=== PATIENT | female | born 1940 | race Caucasian/White ===

== ENCOUNTER → 2016-04-22 | Outpatient (CLI) | payer BC, OTHER | END | disposition home or self-care (01) | LOC: C.LABBFT 08:26 | PROVIDERS: ATTEND Internal Medicine Rheumatology | DX: E55.9 Vitamin D deficiency, unspecified (principal); M81.0 Age-related osteoporosis without current pathological fracture; N25.81 Secondary hyperparathyroidism of renal origin; E61.8 Deficiency of other specified nutrient elements ==

== ENCOUNTER → 2016-06-14 | Outpatient (CLI) | payer BC, OTHER ==
[2016-06-14 13:00] LABS: BLOOD UREA NITROGEN 23 mg/dl (7-18); BUN/CREATININE RATIO 19.3 (10-20); CALCIUM 9.2 mg/dl (8.5-10.1); CARBON DIOXIDE 31 mmol/L (21-32); CHLORIDE 102 mmol/L (98-107); GLUCOSE 116 mg/dl (70-99); POTASSIUM 4.1 mmol/L (3.5-5.1); SODIUM 138 mmol/L (136-145)
[2016-06-14 13:10] LABS: THYROID STIMULATING HORMONE 0.499 uIu/ml (0.300-4.500)
[2016-06-14 13:23] LABS: ESTIMATED AVERAGE GLUCOSE 243 mg/dl; HA1C FLAG Normal (Normal)
== END | disposition home or self-care (01) ==
LOC: C.LABBFT 08:33
PROVIDERS: ATTEND Internal Medicine
DX: E10.65 Type 1 diabetes mellitus with hyperglycemia (principal)

== ENCOUNTER → 2016-07-22 | Outpatient (CLI) | payer BC, OTHER ==
[2016-07-22 12:59] LABS: BASO % 0.1 %; BASO ABS # 0.01 K/uL (0-0.2); COMPLETE YES; EOS % 2.5 %; HEMATOCRIT 39.1 % (37-47); IG% 0.1 %; LYMPH % 32.9 %; LYMPH ABS # 2.35 K/uL (1.2-3.4); MEAN CELL VOLUME 84.8 fL (80-100); MEAN CORPUSCULAR HEMOGLOBIN 28.2 pg (25-34); MEAN CORPUSCULAR HGB CONC 33.2 g/dl (32-36); MEAN PLATELET VOLUME 10.3 fL (7.4-10.4); MONO % 8.7 %; NEUT % 55.7 %; PLATELET COUNT 304 K/uL (130-400); RED BLOOD COUNT 4.61 M/uL (4.2-5.4); WHITE BLOOD COUNT 7.14 K/uL (4.8-10.8)
[2016-07-22 13:14] LABS: ALT/SGPT 31 U/L (12-78); AST/SGOT 26 U/L (15-37); BLOOD UREA NITROGEN 19 mg/dl (7-18); BUN/CREATININE RATIO 15.8 (10-20); CALCIUM 9.6 mg/dl (8.5-10.1); CARBON DIOXIDE 30 mmol/L (21-32); CHLORIDE 104 mmol/L (98-107); GLUCOSE 131 mg/dl (70-99); POTASSIUM 4.4 mmol/L (3.5-5.1); SODIUM 141 mmol/L (136-145)
[2016-07-22 13:24] LABS: ALKALINE PHOSPHATASE 113 U/L (45-117); CHOLESTEROL 140 mg/dl (0-200); HDL CHOLESTEROL 70 mg/dl; LDL CHOLESTEROL CALCULATED 58 mg/dl; TRIGLYCERIDES 58 mg/dl (0-150); VERY LOW DENSITY LIPOPROT CALC 12 mg/dl
== END | disposition home or self-care (01) ==
LOC: C.LABBFT 09:42
PROVIDERS: ATTEND Internal Medicine
DX: E78.00 Pure hypercholesterolemia, unspecified (principal); E03.9 Hypothyroidism, unspecified; D64.9 Anemia, unspecified

== ENCOUNTER → 2016-10-18 | Outpatient (CLI) | payer BC, OTHER ==
--- NOTE | 2016-10-18 11:53 | DIAGNOSTIC IMAGING REPORT ---
ULTRASOUND OF THE THYROID GLAND CLINICAL HISTORY: Thyroid nodules. COMPARISON STUDY: Thyroid ultrasound dated 10/23/2015. TECHNIQUE: Real-time, grayscale, and color flow sonography of the thyroid gland is performed utilizing a high-frequency linear transducer. Images are reviewed in the transverse and longitudinal planes. FINDINGS: Right lobe: The right lobe of the thyroid gland is diminutive and markedly heterogeneous in echotexture, measuring 2.6 x 0.8 x 1.0 cm. A nodule previously identified in the right lobe is not well visualized due to overall heterogeneity. Left lobe: The left lobe of the thyroid gland is diminutive and markedly heterogeneous in echotexture, measuring 2.1 x 0.8 x 0.8 cm. Isthmus: The thyroid isthmus is heterogeneous in echotexture and measures 0.4 cm in AP diameter. A hypoechoic nodule in the left aspect of the isthmus measures 1.1 x 0.7 x 1.0 cm (previously measuring 1.0 x 0.5 x 1.0 cm). IMPRESSION: 1. The thyroid gland is diminutive and markedly heterogeneous in echotexture, likely representing the sequelae of previous thyroiditis. Correlation with serum thyroid function studies will be required. 2. A hypoechoic nodule within the left aspect of the isthmus is unchanged from previous. Electronically signed by: Mukesh Hawley M.D. 10/18/2016 11:52 AM Dictated Date/Time: 10/18/2016 11:50 AM
== END | disposition home or self-care (01) ==
LOC: C.ULTR 10:43
PROVIDERS: ATTEND Internal Medicine Endocrinology, Diabetes & Metabolism
DX: E04.2 Nontoxic multinodular goiter (principal)

== ENCOUNTER → 2016-11-02 | Outpatient (CLI) | payer BC, OTHER | END | disposition home or self-care (01) | LOC: C.LABBFT 07:43 | PROVIDERS: ATTEND Internal Medicine Rheumatology | DX: M81.0 Age-related osteoporosis without current pathological fracture (principal); E55.9 Vitamin D deficiency, unspecified ==

== ENCOUNTER → 2017-01-07 | Outpatient (CLI) | payer BC, OTHER ==
[2017-01-07 12:24] LABS: BASO % 0.4 %; BASO ABS # 0.02 K/uL (0-0.2); COMPLETE YES; EOS % 4.8 %; HEMATOCRIT 39.5 % (37-47); IG% 0.2 %; LYMPH % 33.3 %; LYMPH ABS # 1.88 K/uL (1.2-3.4); MEAN CELL VOLUME 87.6 fL (80-100); MEAN CORPUSCULAR HEMOGLOBIN 28.2 pg (25-34); MEAN CORPUSCULAR HGB CONC 32.2 g/dl (32-36); MEAN PLATELET VOLUME 10.8 fL (7.4-10.4); MONO % 11.3 %; PLATELET COUNT 306 K/uL (130-400); RED BLOOD COUNT 4.51 M/uL (4.2-5.4); WHITE BLOOD COUNT 5.65 K/uL (4.8-10.8)
[2017-01-07 12:50] LABS: ALT/SGPT 31 U/L (12-78); BLOOD UREA NITROGEN 21 mg/dl (7-18); BUN/CREATININE RATIO 19.2 (10-20); CALCIUM 9.6 mg/dl (8.5-10.1); CARBON DIOXIDE 30 mmol/L (21-32); CHLORIDE 106 mmol/L (98-107); CHOLESTEROL 169 mg/dl (0-200); GLUCOSE 82 mg/dl (70-99); POTASSIUM 5.1 mmol/L (3.5-5.1); SODIUM 140 mmol/L (136-145); TRIGLYCERIDES 56 mg/dl (0-150); VERY LOW DENSITY LIPOPROT CALC 11 mg/dl
[2017-01-07 12:51] LABS: ESTIMATED AVERAGE GLUCOSE 223 mg/dl; HA1C FLAG Normal (Normal)
[2017-01-07 13:00] LABS: ALKALINE PHOSPHATASE 117 U/L (45-117); AST/SGOT 27 U/L (15-37); CHOLESTEROL/HDL RATIO 2.1; HDL CHOLESTEROL 80 mg/dl; LDL CHOLESTEROL CALCULATED 78 mg/dl
[2017-01-07 13:05] LABS: RATIO 16.7 mcg/mg (0-30.0)
== END | disposition home or self-care (01) ==
LOC: C.LABBFT 09:30
PROVIDERS: ATTEND Internal Medicine Endocrinology, Diabetes & Metabolism
DX: E78.00 Pure hypercholesterolemia, unspecified (principal); I10 Essential (primary) hypertension; E10.65 Type 1 diabetes mellitus with hyperglycemia; E78.2 Mixed hyperlipidemia; E03.8 Other specified hypothyroidism

== ENCOUNTER → 2017-03-30 | Outpatient (CLI) | payer BC, OTHER ==
[2017-03-30 12:54] LABS: CALCIUM 9.4 mg/dl (8.5-10.1); CREATININE 1.29 mg/dl (0.60-1.20)
[2017-03-30 12:58] LABS: CHOLESTEROL/HDL RATIO 2.1
== END | disposition home or self-care (01) ==
LOC: C.LABBFT 10:35
PROVIDERS: ATTEND Internal Medicine Rheumatology
DX: E78.00 Pure hypercholesterolemia, unspecified (principal); E55.9 Vitamin D deficiency, unspecified; M81.0 Age-related osteoporosis without current pathological fracture; N25.81 Secondary hyperparathyroidism of renal origin; E61.8 Deficiency of other specified nutrient elements

== ENCOUNTER → 2017-04-25 | Outpatient (CLI) | payer BC, OTHER ==
--- NOTE | 2017-04-26 07:48 | MAMMOGRAPHY REPORT ---
BILATERAL DIGITAL SCREENING MAMMOGRAM TOMOSYNTHESIS WITH CAD: 04/25/2017 CLINICAL HISTORY: Routine screening. Patient has no complaints. TECHNIQUE: Breast tomosynthesis in addition to standard 2D mammography was performed. Current study was also evaluated with a Computer Aided Detection (CAD) system. COMPARISON: Comparison is made to exams dated: 04/05/2016 mammogram, 04/01/2015 mammogram, 07/17/2013 mammogram, 07/14/2012 mammogram, 07/09/2011 mammogram, and 07/07/2010 mammogram - [facility] [address] BREAST COMPOSITION: There are scattered areas of fibroglandular density in both breasts. FINDINGS: There are moderate to marked vascular calcifications in the breasts. No suspicious mass, a rchitectural distortion or cluster of suspicious microcalcifications is seen. IMPRESSION: ACR BI-RADS CATEGORY 1: NEGATIVE There is no mammographic evidence of malignancy. A 1 year screening mammogram is recommended. The pa tient will receive written notification of the results. Approximately 10% of breast cancers are not detected with mammography. A negative mammographic report should not delay biopsy if a clinically suggestive mass is present. Kathrine Baxter M.D. ay/:04/25/2017 15:17:24 Dirt Shoveler: Nicole MONTERROSO(Aust[place])(M), [facility] [address] letter sent: Normal 1/2 BI-RADS Code: ACR BI-RADS Category 1: Negative
== END | disposition home or self-care (01) ==
LOC: C.MAMM 09:40
PROVIDERS: ATTEND Internal Medicine
DX: Z12.31 Encounter for screening mammogram for malignant neoplasm of breast (principal)

== ENCOUNTER → 2017-05-06 | Outpatient (CLI) | payer BC, OTHER ==
[2017-05-06 14:06] LABS: HEMOGLOBIN A1C 9.9 % (4.5-5.6)
== END | disposition home or self-care (01) ==
LOC: C.LAB1850 12:38
PROVIDERS: ATTEND Internal Medicine Endocrinology, Diabetes & Metabolism
DX: E10.9 Type 1 diabetes mellitus without complications (principal)

== ENCOUNTER → 2017-06-27 | Outpatient (CLI) | payer BC, OTHER | END | disposition home or self-care (01) | LOC: C.MAMM 09:48 | PROVIDERS: ATTEND Internal Medicine Rheumatology | DX: E11.42 Type 2 diabetes mellitus with diabetic polyneuropathy (principal); M81.0 Age-related osteoporosis without current pathological fracture; M85.89 Other specified disorders of bone density and structure, multiple sites ==

== ENCOUNTER → 2017-08-09 | Outpatient (CLI) | payer BC, OTHER ==
[2017-08-09 12:43] LABS: ALBUMIN 3.6 gm/dl (3.4-5.0); ALKALINE PHOSPHATASE 143 U/L (45-117); ALT/SGPT 36 U/L (12-78); AST/SGOT 29 U/L (15-37); BLOOD UREA NITROGEN 19 mg/dl (7-18); CARBON DIOXIDE 31 mmol/L (21-32); CHOLESTEROL 142 mg/dl (0-200); CREATININE 0.97 mg/dl (0.60-1.20); GLUCOSE 85 mg/dl (70-99); POTASSIUM 4.6 mmol/L (3.5-5.1); SODIUM 139 mmol/L (136-145)
[2017-08-09 12:58] LABS: LDL CHOLESTEROL CALCULATED 64 mg/dl; TOTAL PROTEIN 6.8 gm/dl (6.4-8.2)
== END | disposition home or self-care (01) ==
LOC: C.LABBFT 08:11
PROVIDERS: ATTEND Internal Medicine
DX: E03.9 Hypothyroidism, unspecified (principal); E78.00 Pure hypercholesterolemia, unspecified

== ENCOUNTER 2017-08-31 15:40 | Emergency (ER) | payer BC, OTHER ==
[~2017-08-31] VITALS: Ht 157.5 cm; Wt 75.7 kg
[2017-08-31 15:43] VITALS: TEMP 37.4; Ht 157.5 cm; Wt 75.7 kg
[2017-08-31] MEDS ORDERED: SODIUM CHLORIDE 0.9% 1000ML 1,000 ML IV STA ×2 (16:37→18:02)
[2017-08-31 17:13] LABS: BASO % 0.2 %; BASO ABS # 0.02 K/uL (0-0.2); EOS % 1.4 %; EOS ABS # 0.15 K/uL (0-0.5); HEMATOCRIT 35.9 % (37-47); HEMOGLOBIN 11.9 g/dL (12.0-16.0); IG# 0.02 K/uL (0.00-0.02); LYMPH % 17.9 %; LYMPH ABS # 1.91 K/uL (1.2-3.4); MEAN CELL VOLUME 84.7 fL (80-100); MEAN CORPUSCULAR HEMOGLOBIN 28.1 pg (25-34); MEAN CORPUSCULAR HGB CONC 33.1 g/dl (32-36); MEAN PLATELET VOLUME 9.5 fL (7.4-10.4); MONO % 8.8 %; MONO ABS # 0.94 K/uL (0.11-0.59); NEUT % 71.5 %; NEUT ABS # 7.64 K/uL (1.4-6.5); PLATELET COUNT 279 K/uL (130-400); RED CELL DISTRIBUTION WIDTH CV 13.9 % (11.5-14.5); WHITE BLOOD COUNT 10.68 K/uL (4.8-10.8)
[2017-08-31] MEDS ORDERED: [UNRECOGNIZED DRUG - REMARK] TOP (17:34)
[2017-08-31] MEDS ORDERED: ATOR10TA82 PO (17:34)
[2017-08-31] MEDS ORDERED: INSPMPNVLG SC (17:34)
[2017-08-31] MEDS ORDERED: AMLO2.5T PO (17:34)
[2017-08-31] MEDS ORDERED: CHOL1TAB46 PO (17:34)
[2017-08-31] MEDS ORDERED: CALC600T9 PO (17:34)
[2017-08-31] MEDS ORDERED: ZOLE5INJ3 INJ (17:34)
[2017-08-31] MEDS ORDERED: ASPI81TA28 PO (17:34)
[2017-08-31] MEDS ORDERED: MULT-506 PO (17:34)
[2017-08-31] MEDS ORDERED: LEVO88TA3 PO (17:34)
[2017-08-31] MEDS ORDERED: MAGN400T6 PO (17:34)
[2017-08-31] MEDS ORDERED: OPTIRAY 320 IV PRN (17:45)
[2017-08-31 17:48] LABS: ALBUMIN 3.2 gm/dl (3.4-5.0); ALKALINE PHOSPHATASE 156 U/L (45-117); ALT/SGPT 34 U/L (12-78); AST/SGOT 25 U/L (15-37); BLOOD UREA NITROGEN 19 mg/dl (7-18); CALCIUM 8.6 mg/dl (8.5-10.1); CARBON DIOXIDE 23 mmol/L (21-32); GLUCOSE 130 mg/dl (70-99); LIPASE 62 U/L (73-393); PHOSPHORUS 2.4 mg/dl (2.5-4.9); POTASSIUM 4.5 mmol/L (3.5-5.1); SODIUM 136 mmol/L (136-145); TOTAL PROTEIN 7.1 gm/dl (6.4-8.2)
[2017-08-31] MEDS ORDERED: CEFTRIAXONE SOD INJ 1 GM ADDVIAL IV STA (18:23)
--- NOTE | 2017-08-31 18:47 | DIAGNOSTIC IMAGING REPORT ---
ABDOMEN AND PELVIS CT WITH IV CONTRAST CT DOSE: 355.80 mGy.cm HISTORY: Acute generalized abdominal pain with diarrhea abd pain, diarrhea, nausea TECHNIQUE: Multiaxial CT images of the abdomen and pelvis were performed following the use of intravenous contrast. A dose lowering technique was utilized adhering to the principles of ALARA. COMPARISON STUDY: None. FINDINGS: Mild subsegmental bibasilar atelectasis/scarring. 3 mm solid nodule the posterior basal segment left lower lobe. Pleural-based 5 mm nodule of the lateral basal segment right lower lobe. 4 mm nodule of the right middle lobe. No pneumatosis or pneumoperitoneum. Imaged inferior cardiac chambers are mildly enlarged with trace pericardial effusion. Gallbladder, liver, spleen and adrenal glands are unremarkable. Severe pancreatic atrophy with low attenuating lesions of the pancreatic body and pancreatic tail measuring up to 8 mm, possibly reflecting a sidebranch IPMN's. Mild bilateral perinephric stranding with mild dilation of the right greater than left ureters. No significant hydronephrosis or renal calculi. Ureters fill enhancement seen within the bilateral renal pelves and ureters along with mild periureteral inflammatory stranding. Mild urinary bladder distention. Pessary device within the vagina noted. Calcifications of the uterus. No adnexal mass lesion. No aortic aneurysm. Moderate hiatal hernia with partially intrathoracic stomach. No bowel obstruction. Prominent nonenlarged mesenteric lymph nodes are noted throughout the central and left abdomen measuring up to 8 mm in short axis. Appendix is not definitively seen. No ascites. The soft tissues are unremarkable. The bones appear intact. Bone demineralization with multilevel degenerative changes about the spine. IMPRESSION: 1. Mild bilateral perinephric and periureteral inflammatory stranding with mild dilation of the right greater than left ureters are noted along with bilateral urothelial enhancement suspicious for ascending infectious etiology with ureteritis. Correlate with urinalysis. No renal calculi or hydronephrosis. 2. Solid nodules of the bilateral lung bases measure up to 5 mm. 3. Moderate hiatal hernia with partially intrathoracic stomach. 4. No bowel obstruction. 5. Nonspecific mildly prominent mesenteric lymph nodes may be physiologic. 6. Additional findings as above. Please refer to below summary of Fleischner criteria recommendations for follow-up of incidental CT nodules (Tejas Coelho, Guidelines for management of small pulmonary nodules detected on CT scans: A statement from the Fleischner Society, Radiology 237: [phone].) SOLID NODULES Multiple nodules size: <6 mm * Low risk patients: no routine follow-up * high risk patients: optional CT at 12 months Note: newly detected indeterminate nodule in persons 35 years of age or older. * Low risk patients: minimal or absent history of smoking and/or other known risk factors * high risk patients: history of smoking or of other known risk factors (e.g. first degree relative with lung cancer, or exposure to asbestos, radon, uranium) * if a nodule up to 8 mm is partly solid or is ground glass further follow-up is required after 24 months to exclude possible slow growing adenocarcinoma (MORIAH) The above report was generated using voice recognition software. It may contain grammatical, syntax or spelling errors. Electronically signed by: Jeffrey Palacio M.D. 08/31/2017 6:45 PM Dictated Date/Time: 08/31/2017 6:36 PM
--- NOTE | 2017-08-31 20:04 | EMERGENCY ROOM VISIT NOTE ---
History Report prepared by Crystal: Camille Yañez Under the Supervision of: Dr. Carlee Llanos D.O. First contact with patient: 16:25 Chief Complaint: DIARRHEA Stated Complaint: BODY ACHES, DIARRHEA, FEVER Nursing Triage Summary: diarrhea, abd pain, body aches, fever since tuesday. pt was told to come her by her doctor for eval. History of Present Illness The patient is a 77 year old female who presents to the Emergency Room with complaints of persistent diarrhea starting 3 days ago. She was referred to the ED by her PCP. The patient was having cramping in her abdomen prior to the diarrhea beginning 3 days ago. She then had diarrhea for the rest of the day. She did not have another bowel movement until this morning when she had thick diarrhea. Her abdomen has felt achy. She has had some intermittent nausea and has not been eating well. She has a decreased appetite. She has had a fever for the past 3 evenings. Her temperature was 100.7. She was diaphoretic when she woke up this morning. She is having body aches. She has lower back pain which she normally does not have. She thought she might have been sore from gardening. She reports fatigue and chills. She had 2 instances of very yellow urine, but denies any other urinary symptoms. She denies any cough or bloating. She denies any changes in diet, sick contacts, new medications, or recent travel. She denies any history of stomach or intestinal problems. She has a history of diabetes. Her sugars have been good because she has not been eating well. She is on low dose aspirin. Source of History: patient Onset: 3 days ago Position: abdomen Quality: other (diarrhea) Timing: other (persistent) Associated Symptoms: + fevers, + chills, + diaphoresis, + nausea, + abdominal pain, + back pain, + fatigue, No cough, No vomiting Note: Pt reports body aches. Review of Systems See HPI for pertinent positives & negatives. A total of 10 systems reviewed and were otherwise negative. Past Medical & Surgical Medical Problems: (1) Diabetes Family History No pertinent family history stated. Social History Smoking Status: Never Smoker Marital Status: Occupation Status: retired Current/Historical Medications Scheduled Amlodipine (Norvasc), 2.5 MG PO HS Aspirin (Aspirin Ec), 81 MG PO HS Atorvastatin (Lipitor), 10 MG PO HS Calcium Carbonate-Vitamin D (Calcium + D), 1 TAB PO BID Cephalexin (Keflex), 1 CAP PO BID Cholecalciferol (Vitamin D3), 15,000 UNITS PO QAM Insulin Aspart (novoLOG INSULIN PUMP ), 35-45 UNITS SC DAILY Levothyroxine Sodium (Levothyroxine Sodium), 88 MCG PO QAM Magnesium Oxide (Mag-Ox), 400 MG PO QAM Multivitamin (Multivitamin), 1 TAB PO HS Zoledronic Acid (Zoledronic Acid), 1 DOSE INJ DIRECTED [Foam Hair Solution], 1 DOSE TOP DAILY Allergies Coded Allergies: Losartan (Verified Adverse Reaction, Severe, "MESSES UP BLOOD WORK", ) Physical Exam Vital Signs Date Time Temp Pulse Resp B/P (MAP) Pulse Ox O2 Delivery O2 Flow Rate FiO2 08/31/17 20:14 91 18 161/95 98 Room Air 08/31/17 18:41 89 18 153/72 99 Room Air 08/31/17 17:16 84 18 149/70 98 Room Air 08/31/17 15:43 37.4 97 20 154/78 95 Room Air Physical Exam GENERAL: alert, well appearing, well nourished, no distress, non-toxic EYE EXAM: normal conjunctiva, PERRL and EOM's grossly intact OROPHARYNX: no exudate, no erythema, lips, buccal mucosa, and tongue normal and mucous membranes are moist NECK: supple, no nuchal rigidity, no adenopathy, non-tender LUNGS: Clear to auscultation. Normal chest wall mechanics, no w/r/r HEART: no murmurs, S1 normal and S2 normal ABDOMEN: abdomen soft, non-tender, dull to percussion, normo-active bowel sounds , no masses, no rebound or guarding. BACK: Back is symmetrical on inspection and there is no deformity, no midline tenderness, no CVA tenderness. SKIN: no rashes and no bruising UPPER EXTREMITIES: upper extremities are grossly normal. LOWER EXTREMITIES: No pitting edema. NEURO EXAM: Normal sensorium, cranial nerves II-XII grossly intact, normal speech, no gross weakness of arms, no gross weakness of legs. Ambulating with a normal gait, no ataxia. Medical Decision & Procedures ER Provider Diagnostic Interpretation: Radiology results have been interpreted by the radiologist and reviewed by me. ABDOMEN AND PELVIS CT WITH IV CONTRAST CT DOSE: 355.80 mGy.cm HISTORY: Acute generalized abdominal pain with diarrhea abd pain, diarrhea, nausea TECHNIQUE: Multiaxial CT images of the abdomen and pelvis were performed following the use of intravenous contrast. A dose lowering technique was utilized adhering to the principles of ALARA. COMPARISON STUDY: None. FINDINGS: Mild subsegmental bibasilar atelectasis/scarring. 3 mm solid nodule the posterior basal segment left lower lobe. Pleural-based 5 mm nodule of the lateral basal segment right lower lobe. 4 mm nodule of the right middle lobe. No pneumatosis or pneumoperitoneum. Imaged inferior cardiac chambers are mildly enlarged with trace pericardial effusion. Gallbladder, liver, spleen and adrenal glands are unremarkable. Severe pancreatic atrophy with low attenuating lesions of the pancreatic body and pancreatic tail measuring up to 8 mm, possibly reflecting a sidebranch IPMN's. Mild bilateral perinephric stranding with mild dilation of the right greater than left ureters. No significant hydronephrosis or renal calculi. Ureters fill enhancement seen within the bilateral renal pelves and ureters along with mild periureteral inflammatory stranding. Mild urinary bladder distention. Pessary device within the vagina noted. Calcifications of the uterus. No adnexal mass lesion. No aortic aneurysm. Moderate hiatal hernia with partially intrathoracic stomach. No bowel obstruction. Prominent nonenlarged mesenteric lymph nodes are noted throughout the central and left abdomen measuring up to 8 mm in short axis. Appendix is not definitively seen. No ascites. The soft tissues are unremarkable. The bones appear intact. Bone demineralization with multilevel degenerative changes about the spine. IMPRESSION: 1. Mild bilateral perinephric and periureteral inflammatory stranding with mild dilation of the right greater than left ureters are noted along with bilateral urothelial enhancement suspicious for ascending infectious etiology with ureteritis. Correlate with urinalysis. No renal calculi or hydronephrosis. 2. Solid nodules of the bilateral lung bases measure up to 5 mm. 3. Moderate hiatal hernia with partially intrathoracic stomach. 4. No bowel obstruction. 5. Nonspecific mildly prominent mesenteric lymph nodes may be physiologic. 6. Additional findings as above. Please refer to below summary of Fleischner criteria recommendations for follow-up of incidental CT nodules (H Meliton, Guidelines for management of small pulmonary nodules detected on CT scans: A statement from the Fleischner Society, Radiology 237: [phone].) SOLID NODULES Multiple nodules size: <6 mm * Low risk patients: no routine follow-up * high risk patients: optional CT at 12 months Note: newly detected indeterminate nodule in persons 35 years of age or older. * Low risk patients: minimal or absent history of smoking and/or other known risk factors * high risk patients: history of smoking or of other known risk factors (e.g. first degree relative with lung cancer, or exposure to asbestos, radon, uranium) * if a nodule up to 8 mm is partly solid or is ground glass further follow-up is required after 24 months to exclude possible slow growing adenocarcinoma (MORIAH) The above report was generated using voice recognition software. It may contain grammatical, syntax or spelling errors. Electronically signed by: Jeffrey Palacio M.D. 08/31/2017 6:45 PM Dictated Date/Time: 08/31/2017 6:36 PM Laboratory Results 08/31/17 16:56 Red Blood Count 4.24, Mean Corpuscular Volume 84.7, Mean Corpuscular Hemoglobin 28.1, Mean Corpuscular Hemoglobin Concent 33.1, Mean Platelet Volume 9.5, Neutrophils (%) (Auto) 71.5, Lymphocytes (%) (Auto) 17.9, Monocytes (%) (Auto) 8.8, Eosinophils (%) (Auto) 1.4, Basophils (%) (Auto) 0.2, Neutrophils # (Auto) 7.64, Lymphocytes # (Auto) 1.91, Monocytes # (Auto) 0.94, Eosinophils # (Auto) 0.15, Basophils # (Auto) 0.02 08/31/17 16:56 Test 08/31/17 16:56 08/31/17 17:01 08/31/17 17:08 White Blood Count 10.68 K/uL (4.8-10.8) Red Blood Count 4.24 M/uL (4.2-5.4) Hemoglobin 11.9 g/dL (12.0-16.0) Hematocrit 35.9 % (37-47) Mean Corpuscular Volume 84.7 fL (80-100) Mean Corpuscular Hemoglobin 28.1 pg (25-34) Mean Corpuscular Hemoglobin Concent 33.1 g/dl (32-36) Platelet Count 279 K/uL (130-400) Mean Platelet Volume 9.5 fL (7.4-10.4) Neutrophils (%) (Auto) 71.5 % Lymphocytes (%) (Auto) 17.9 % Monocytes (%) (Auto) 8.8 % Eosinophils (%) (Auto) 1.4 % Basophils (%) (Auto) 0.2 % Neutrophils # (Auto) 7.64 K/uL (1.4-6.5) Lymphocytes # (Auto) 1.91 K/uL (1.2-3.4) Monocytes # (Auto) 0.94 K/uL (0.11-0.59) Eosinophils # (Auto) 0.15 K/uL (0-0.5) Basophils # (Auto) 0.02 K/uL (0-0.2) RDW Standard Deviation 43.0 fL (36.4-46.3) RDW Coefficient of Variation 13.9 % (11.5-14.5) Immature Granulocyte % (Auto) 0.2 % Immature Granulocyte # (Auto) 0.02 K/uL (0.00-0.02) Prothrombin Time 11.0 SECONDS (9.0-12.0) Prothromb Time International Ratio 1.0 (0.9-1.1) Anion Gap 7.0 mmol/L (3-11) Est Creatinine Clear Calc Drug Dose 34.5 ml/min Estimated GFR () 45.8 Estimated GFR (Non- 39.5 BUN/Creatinine Ratio 14.5 (10-20) Calcium Level 8.6 mg/dl (8.5-10.1) Phosphorus Level 2.4 mg/dl (2.5-4.9) Magnesium Level 1.9 mg/dl (1.8-2.4) Total Bilirubin 0.7 mg/dl (0.2-1) Aspartate Amino Transf (AST/SGOT) 25 U/L (15-37) Alanine Aminotransferase (ALT/SGPT) 34 U/L (12-78) Alkaline Phosphatase 156 U/L (45-117) Troponin I < 0.015 ng/ml (0-0.045) Total Protein 7.1 gm/dl (6.4-8.2) Albumin 3.2 gm/dl (3.4-5.0) Globulin 3.9 gm/dl (2.5-4.0) Albumin/Globulin Ratio 0.8 (0.9-2) Lipase 62 U/L (73-393) Bedside Lactic Acid Venous 0.63 mmol/L (0.90-1.70) Urine Color YELLOW Urine Appearance TURBID (CLEAR) Urine pH 5.0 (4.5-7.5) Urine Specific Hamilton 1.017 (1.000-1.030) Urine Protein 1+ (NEG) Urine Glucose (UA) NEG (NEG) Urine Ketones TRACE (NEG) Urine Occult Blood 2+ (NEG) Urine Nitrite POS (NEG) Urine Bilirubin NEG (NEG) Urine Urobilinogen NEG (NEG) Urine Leukocyte Esterase LARGE (NEG) Urine WBC (Auto) >30 /hpf (0-5) Urine RBC (Auto) 10-30 /hpf (0-4) Urine Hyaline Casts (Auto) 1-5 /lpf (0-5) Urine Epithelial Cells (Auto) >30 /lpf (0-5) Urine Bacteria (Auto) 2+ (NEG) Laboratory results per my review. Medications Administered Medications (Trade) Dose Ordered Sig/Alicia Route Start Time Stop Time Status Last Admin Dose Admin Sodium Chloride 1,000 ml @ 999 mls/hr Q1H1M STAT IV 08/31/17 16:37 08/31/17 17:37 DC 08/31/17 17:08 999 MLS/HR Sodium Chloride 1,000 ml @ 999 mls/hr Q1H1M STAT IV 08/31/17 18:02 08/31/17 19:02 DC 08/31/17 18:48 999 MLS/HR Ceftriaxone Sodium (Rocephin Inj) 1 gm NOW STAT IV 08/31/17 18:23 08/31/17 18:25 DC 08/31/17 18:48 1 GM ECG Per My Interpretation Indication: back/shoulder pain Rate (beats per minute): 85 Rhythm: sinus rhythm Findings: no acute ischemic change, no ectopy, other (normal axis, normal intervals) ED Course 163: The patient was evaluated in room C7. A complete history and physical exam was performed. 1637: Sodium Chloride 1000 ml @ 999 mls/hr IV. 180: Sodium Chloride 1000 ml @ 999 mls/hr IV. 1823: Rocephin Inj 1 gm IV. 1910: I reevaluated the patient. I updated her on the results. 195: Upon reevaluation, the patient is feeling better. I discussed the findings and the treatment plan with the patient. She verbalizes agreement and understanding. She was discharged home. Medical Decision Differential diagnoses includes but is not limited to gastritis, peptic ulcer disease, GERD, gallbladder disease, pancreatitis, small bowel obstruction, acute coronary syndrome, pericarditis, ischemic bowel, irritable bowel disease, irritable bowel syndrome, appendicitis, diverticulitis, malignancy, hernia, urinary tract infection, torsion, perforation, trauma, infectious. Patient well-appearing here, tolerating p.o., hemodynamically stable throughout. I do not suspect bacteremia/sepsis. Possibly patient started with diarrhea from viral or foodborne etiology, which then contributed to an evolving urinary tract infection. Patient with no overt symptoms of pyelonephritis, some generalized systemic symptoms, however labs otherwise reassuring. Patient did appear mildly clinically dehydrated and was given IV fluids, was tolerating fluids here by mouth also. No evidence of DKA or HHNK. Patient with small elevation to her creatinine to 1.3, likely in part due to dehydration although cautioned her about having this rechecked given the urinary tract infection. No evidence of additional obstructive uropathy. Patient ambulate here with a steady gait, no orthostatic symptoms, patient anxious to go home. Imaging otherwise reassuring and no evidence of additional acute GI pathology, I do not suspect additional vascular etiology including mesenteric ischemia or ischemic colitis. Discussed close follow-up with her family doctor, use of antibiotics at home, symptoms to watch and return for, she verbalized understanding was agreeable with plan. I feel patient is reliable to follow up or return for any problems. Medication Reconcilliation Current Medication List: was personally reviewed by me Blood Pressure Screening Patient's blood pressure: Elevated blood pressure Blood pressure disposition: Referred to PCP Impression Primary Impression: UTI (urinary tract infection) Additional Impressions: Dehydration Abdominal pain Scribe Attestation The scribe's documentation has been prepared under my direction and personally reviewed by me in its entirety. I confirm that the note above accurately reflects all work, treatment, procedures, and medical decision making performed by me. Departure Information Dispostion Home / Self-Care Prescriptions Cephalexin (KEFLEX) 500 Mg Cap 1 CAP PO BID for 7 Days, #14 CAP Prov: Carlee Llanos, DO 08/31/17 Referrals Salvador Kimble M.D. (PCP) Patient Instructions My [facility] Additional Instructions Please call follow-up with your family doctor. Please continue to drink plenty of water. You may use Tylenol or ibuprofen as needed for pain. Please take the antibiotic as prescribed. Please consider using a probiotic or eating yogurt while you are on the antibiotic to help prevent any GI symptoms. Please check your blood sugar daily. Please continue your other regular medications. If you are having worsening fevers or chills, vomiting, worsening diarrhea, black or bloody stools, are unable to urinate, noticed blood in your urine, have increased abdominal pain or back pain, feel increasing weakness or dizziness, or you have any other new concerns, please return the emergency room immediately. Please have your family doctor recheck your sugar and kidney numbers next week to assure that they are within normal range. Problem Qualifiers Primary Impression: UTI (urinary tract infection) Urinary tract infection type: acute cystitis Hematuria presence: with hematuria Qualified Codes: N30.01 - Acute cystitis with hematuria Additional Impressions: Abdominal pain Abdominal location: generalized Qualified Codes: R10.84 - Generalized abdominal pain
[2017-08-31] MEDS ORDERED: CEPH-571 PO (20:06)
[2017-08-31 20:14] VITALS: BP 161/95; PULSE 91; O2SAT 98
[2017-09-02] MEDS ORDERED: CIPR-304 PO (13:50)
== END 2017-08-31 20:19 | disposition home or self-care (01) ==
LOC: C.EDB 15:42 → C.EDC 20:19
DX: N39.0 Urinary tract infection, site not specified (principal); E86.0 Dehydration; E11.9 Type 2 diabetes mellitus without complications; Z79.82 Long term (current) use of aspirin; Z79.899 Other long term (current) drug therapy; Z79.4 Long term (current) use of insulin; Z88.8 Allergy status to other drugs, medicaments and biological substances

== ENCOUNTER 2019-07-01 19:05 | Inpatient (IN) ==
--- NOTE | 2019-07-01 19:19 | Emergency Department Note ---
ED Provider Note NAME: LARRY GUERRERO AGE: 79 SEX: F ARRIVES VIA: Walk-In INFORMANT: [Patient][, ] ED PROVIDER(S): [Lux Savage MD] CHIEF COMPLAINT: Fevers, abdominal pain IMPRESSION: Neutropenic fever, Colitis, Gastritis, Abdominal pain MEDICAL DECISION MAKING: The patient is a pleasant 79-year-old woman with a past medical history of breast cancer diagnosed in April, with initial treatment of chemotherapy starting last Tuesday who presents emergency department with objective fever of 100.8 at home in the setting of developing generalized abdominal pain. On arrival the patient is no acute distress, afebrile with temp of 37.4, heart rate 120s and otherwise stable vital signs. Patient appears clinically dry. She has clear lungs. She has generalized abdominal discomfort without discrete tenderness. Chest x-ray without overt focal infiltrates. WBC 2 with ANC of 0.36 demonstrating new neutropenia. Hemoglobin and platelets within normal limits. Chemistry without acidosis. A 1.2 consistent with the patient's clinically dry appearance. Lactate 1.3, within normal limits. Electrolytes and LFTs otherwise unremarkable. Troponin negative/undetectable. Flu negative. UA pending. CT abdomen pelvis performed and demonstrates evidence of colitis/gastritis duodenitis. Upon reevaluation the patient was feeling improved after IV fluid hydration, Pepcid, Compazine, Benadryl. Patient was treated empirically with ceftriaxone given her neutropenia and objective fever at home. Given the patient's symptoms in the setting of neutropenic fever patient is agreeable for admission. Case was discussed with Dr. De La O, [facility] hospitalist, who evaluate the patient for admission. Triage Nursing notes reviewed and agree them. [Prior medical records reviewed] [] Differential diagnosis: [] ER treatment provided: [] Diagnostics interpreted by me: ECG: NSR, 89 bpm, Normal axis, TWA laterally, No ST elevation or depression. Baseline artifact. Cardiac Monitoring: NSR 89 bpm, no ectopy. Laboratory studies: [See below] [] Imaging studies: [See below] [] Consultation(s): [none] HPI: The patient is a pleasant 79-year-old woman with a past medical history of breast cancer diagnosed in April, with initial treatment of chemotherapy starting last Tuesday who presents emergency department with objective fever of 100.8 at home in the setting of developing generalized abdominal pain. The patient reports onset as gradual. Reports no provoking factors. Describes symptoms as aching. Reports no radiation. Reports severity as mild to moderate. Timing of symptoms are constant. Has tried no medications. ROS: See above HPI for pertinent positives & negatives. A total of [10] systems reviewed and were otherwise negative. PAST MEDICAL HISTORY:[See Below] PAST SURGICAL HISTORY:[See Below] FAMILY HISTORY:[See Below] SOCIAL HISTORY:[See Below] HOME MEDICATIONS:[See Below] ALLERGIES:[See Below] VITALS:[See Below] PHYSICAL EXAMINATION: GENERAL: Awake, alert, uncomfortable-appearing, in no distress HENT: Normocephalic, atraumatic. Oropharynx with dry mucous membranes and otherwise unremarkable. . EYES: Normal conjunctiva. Sclera non-icteric. NECK: Supple. No nuchal rigidity. FROM. No JVD. RESPIRATORY: Clear to auscultation. CARDIAC: Regular rate, normal rhythm. Extremities warm and well perfused. Pulses equal. ABDOMEN: Soft, non-distended. Generalized abdominal discomfort without discrete tenderness. No rebound or guarding. No masses. RECTAL: Deferred. MUSCULOSKELETAL: Chest examination reveals no tenderness. The back is symmetrical on inspection without obvious abnormality. There is no CVA tenderness to palpation. No joint edema. LOWER EXTREMITIES: Calves are equal size bilaterally and non-tender. No edema. No discoloration. NEURO: Normal sensorium. No sensory or motor deficits noted. SKIN: No rash or jaundice noted. ED COURSE: Procedures: [none] [Critical Care:] [None] Impression & Plan Neutropenic fever, Colitis, Gastritis, Abdominal pain Past Med/Surg History Medical History Anemia hx Breast cancer right Diabetes mellitus type 1 + insulin pump/follows with [facility] endocrine/public health educator GERD (gastroesophageal reflux disease) diet controlled Hyperlipidemia Hypertension Hypothyroidism Osteoarthritis Urinary incontinence Surgical History History of breast biopsy right History of carpal tunnel release bilateral History of cataract surgery bilateral History of colonoscopy Hx of tonsillectomy S/P thyroid biopsy Family History Sister Breast cancer Father Cancer Brother Diabetes Brother Diabetes Other No family history of adverse response to anesthesia Social History Preferred Language: Beninese Communication Ability: Effective Warning Coordination Meteorologist Required: No Beliefs That Will Affect Care: None marital status: / Current Living Situation: Family Current Living Situation Comment: mother lives with her. current occupational status: retired Feels Safe at Home: Yes Smoking Status: Never smoker Second Hand Exposure: Yes (hx as a child) ; Hx Alcohol Use: No Hx Substance Use: No Results & Data Vital Signs Vital Signs - 24 hr 07/01/19 19:07 07/01/19 19:22 07/01/19 20:45 Temperature 37.4 C Temperature Source Oral Pulse Rate 123 H 93 H 85 Pulse Rate from SpO2 Sensor Pulse Rhythm Regular Regular Pulse Strength Normal Respiratory Rate 22 19 Respiratory Effort / Characteristics Non-Labored Spontaneous Respiratory Depth Normal Blood Pressure 124/63 127/67 Blood Pressure Mean 83 84 Blood Pressure Position Sitting Pulse Oximetry 96 95 Oxygen Delivery Method Room Air Room Air Sepsis Recent Fever Within 48 Hours Yes Sepsis Action Taken by Nursing No Action Required 07/01/19 20:52 07/01/19 21:00 07/01/19 21:15 Temperature Temperature Source Pulse Rate 84 88 88 Pulse Rate from SpO2 Sensor Pulse Rhythm Pulse Strength Respiratory Rate 22 16 18 Respiratory Effort / Characteristics Respiratory Depth Blood Pressure Blood Pressure Mean Blood Pressure Position Pulse Oximetry Oxygen Delivery Method Sepsis Recent Fever Within 48 Hours Sepsis Action Taken by Nursing 07/01/19 21:23 07/01/19 21:30 07/01/19 21:31 Temperature Temperature Source Pulse Rate 86 86 87 Pulse Rate from SpO2 Sensor 86 85 87 Pulse Rhythm Pulse Strength Respiratory Rate 20 20 19 Respiratory Effort / Characteristics Respiratory Depth Blood Pressure 126/58 L 122/72 Blood Pressure Mean 60 87 Blood Pressure Position Pulse Oximetry 96 96 96 Oxygen Delivery Method Sepsis Recent Fever Within 48 Hours Sepsis Action Taken by Nursing 07/01/19 21:45 07/01/19 22:00 07/01/19 22:30 Temperature Temperature Source Pulse Rate 85 88 87 Pulse Rate from SpO2 Sensor 86 88 87 Pulse Rhythm Pulse Strength Respiratory Rate 21 17 17 Respiratory Effort / Characteristics Respiratory Depth Blood Pressure 135/76 122/80 113/67 Blood Pressure Mean 101 89 89 Blood Pressure Position Pulse Oximetry 96 96 98 Oxygen Delivery Method Sepsis Recent Fever Within 48 Hours Sepsis Action Taken by Nursing 07/01/19 22:45 07/01/19 23:00 07/01/19 23:15 Temperature 36.8 C Temperature Source Pulse Rate 84 88 91 H Pulse Rate from SpO2 Sensor 84 88 91 H Pulse Rhythm Pulse Strength Respiratory Rate 20 19 16 Respiratory Effort / Characteristics Respiratory Depth Blood Pressure 132/65 139/67 146/91 H Blood Pressure Mean 83 70 102 Blood Pressure Position Pulse Oximetry 97 97 97 Oxygen Delivery Method Sepsis Recent Fever Within 48 Hours Sepsis Action Taken by Nursing 07/01/19 23:30 07/01/19 23:45 07/02/19 00:00 Temperature Temperature Source Pulse Rate 93 H 81 85 Pulse Rate from SpO2 Sensor 93 H 81 85 Pulse Rhythm Pulse Strength Respiratory Rate 25 H 18 19 Respiratory Effort / Characteristics Respiratory Depth Blood Pressure 159/69 H 129/69 134/67 Blood Pressure Mean 86 80 72 Blood Pressure Position Pulse Oximetry 99 98 98 Oxygen Delivery Method Sepsis Recent Fever Within 48 Hours Sepsis Action Taken by Nursing 07/02/19 00:15 07/02/19 00:30 07/02/19 00:45 Temperature Temperature Source Pulse Rate 83 82 82 Pulse Rate from SpO2 Sensor 83 83 81 Pulse Rhythm Pulse Strength Respiratory Rate 20 16 14 Respiratory Effort / Characteristics Respiratory Depth Blood Pressure 132/80 133/66 114/56 L Blood Pressure Mean 85 83 75 Blood Pressure Position Pulse Oximetry 100 98 98 Oxygen Delivery Method Sepsis Recent Fever Within 48 Hours Sepsis Action Taken by Custodial Medications Current Medication List: was personally reviewed by me Laboratory Data Attestation: I reviewed the patient's lab results. Result diagrams: 07/01/19 20:50 07/01/19 20:50 Lab Results 07/01/19 07/01/19 07/01/19 Range/Units 20:50 20:50 20:50 WBC 2.04 L (4.8-10.8) K/uL RBC 4.23 (4.2-5.4) M/uL Hgb 12.1 (12.0-16.0) g/dL Hct 36.5 L (37-47) % MCV 86.3 (80-100) fL MCH 28.6 (25-34) pg MCHC 33.2 (32-36) g/dL RDW Std Deviation 42.5 (36.4-46.3) fL RDW Coeff of Mikayla 13.4 (11.5-14.5) % Plt Count 165 (130-400) K/uL MPV 11.4 H (7.4-10.4) fL Immature Gran % (Auto) 0.5 % Neut % (Auto) 17.6 % Lymph % (Auto) 36.3 % Barton % (Auto) 40.7 % Eos % (Auto) 4.9 % Baso % (Auto) 0.0 % Immature Gran # (Auto) 0.01 (0.00-0.02) K/uL Neut # (Auto) 0.36 L* (1.4-6.5) K/uL Lymph # (Auto) 0.74 L (1.2-3.4) K/uL Barton # (Auto) 0.83 H (0.11-0.59) K/uL Eos # (Auto) 0.10 (0-0.5) K/uL Baso # (Auto) 0.00 (0-0.2) K/uL Dohle Bodies 1+ Echinocytes 1+ PT 11.6 (9.0-12.0) Seconds INR 1.1 (0.9-1.1) APTT 36.7 H (21.0-31.0) Seconds PTT Ratio 1.3 Sodium 133 L (136-145) mmol/L Potassium 5.0 (3.5-5.1) mmol/L Chloride 101 (98-107) mmol/L Carbon Dioxide 28 (21-32) mmol/L Anion Gap 4.0 (3-11) BUN 20 H (7-18) mg/dl Creatinine 1.21 H (0.6-1.2) mg/dl Est Cr Clr Drug Dosing 35.6 ml/min Est GFR ( Amer) 49.3 Est GFR (Non-Af Amer) 42.5 BUN/Creatinine Ratio 16.9 (10-20) Glucose 133 H (70-99) mg/dl Lactate (0.4-2.0) mmol/L Calcium 8.1 L (8.5-10.1) mg/dl Phosphorus 2.2 L (2.5-4.9) mg/dl Magnesium 2.2 (1.8-2.4) mg/dl Total Bilirubin 0.4 (0.2-1) mg/dl AST 13 L (15-37) U/L ALT 21 (12-78) U/L Alkaline Phosphatase 84 (45-117) U/L Total Creatine Kinase 36 (26-192) U/L Troponin I < 0.015 (0-0.045) ng/ml Total Protein 5.6 L (6.4-8.2) gm/dl Albumin 2.4 L (3.4-5.0) gm/dl Globulin 3.2 (2.5-4.0) gm/dl Albumin/Globulin Ratio 0.7 L (0.9-2) TSH 3.230 (0.300-4.500) uIu/ml Influenza Type A (PCR) (Neg) Influenza Type B (PCR) (Neg) 07/01/19 07/01/19 Range/Units 20:50 21:27 WBC (4.8-10.8) K/uL RBC (4.2-5.4) M/uL Hgb (12.0-16.0) g/dL Hct (37-47) % MCV (80-100) fL MCH (25-34) pg MCHC (32-36) g/dL RDW Std Deviation (36.4-46.3) fL RDW Coeff of Mikayla (11.5-14.5) % Plt Count (130-400) K/uL MPV (7.4-10.4) fL Immature Gran % (Auto) % Neut % (Auto) % Lymph % (Auto) % Barton % (Auto) % Eos % (Auto) % Baso % (Auto) % Immature Gran # (Auto) (0.00-0.02) K/uL Neut # (Auto) (1.4-6.5) K/uL Lymph # (Auto) (1.2-3.4) K/uL Barton # (Auto) (0.11-0.59) K/uL Eos # (Auto) (0-0.5) K/uL Baso # (Auto) (0-0.2) K/uL Dohle Bodies Echinocytes PT (9.0-12.0) Seconds INR (0.9-1.1) APTT (21.0-31.0) Seconds PTT Ratio Sodium (136-145) mmol/L Potassium (3.5-5.1) mmol/L Chloride (98-107) mmol/L Carbon Dioxide (21-32) mmol/L Anion Gap (3-11) BUN (7-18) mg/dl Creatinine (0.6-1.2) mg/dl Est Cr Clr Drug Dosing ml/min Est GFR ( Amer) Est GFR (Non-Af Amer) BUN/Creatinine Ratio (10-20) Glucose (70-99) mg/dl Lactate 1.3 (0.4-2.0) mmol/L Calcium (8.5-10.1) mg/dl Phosphorus (2.5-4.9) mg/dl Magnesium (1.8-2.4) mg/dl Total Bilirubin (0.2-1) mg/dl AST (15-37) U/L ALT (12-78) U/L Alkaline Phosphatase (45-117) U/L Total Creatine Kinase (26-192) U/L Troponin I (0-0.045) ng/ml Total Protein (6.4-8.2) gm/dl Albumin (3.4-5.0) gm/dl Globulin (2.5-4.0) gm/dl Albumin/Globulin Ratio (0.9-2) TSH (0.300-4.500) uIu/ml Influenza Type A (PCR) Neg for Influ A (Neg) Influenza Type B (PCR) Neg for Influ B (Neg) Administered Medications Sodium Chloride (Nss 1000ml) 1,000 mls @ 100 mls/hr IV .Q10H JODI Stop: 08/01/19 00:29 Last Admin: 07/02/19 00:51 Dose: 100 mls/hr Documented by: [id number] Ciprofloxacin (Cipro) 400 mg in 200 mls @ 100 mls/hr IV Q12H JODI Stop: 07/12/19 03:59 Last Admin: 07/02/19 03:39 Dose: 100 mls/hr Documented by: [id number] Metronidazole (Flagyl) 500 mg in 100 mls @ 100 mls/hr IV Q8H JODI Stop: 07/12/19 02:59 Last Admin: 07/02/19 03:39 Dose: 100 mls/hr Documented by: [id number] Ibuprofen (Advil) 400 mg PO Q6H PRN PRN Reason: Pain Stop: 08/01/19 02:49 Last Admin: 07/02/19 04:56 Dose: 400 mg Documented by: [id number] Miscellaneous (Carbohydrates For Hypoglycemia) 15 - 30 gm PO UD PRN PRN Reason: Hypoglycemia Protocol Stop: 08/01/19 02:49 Last Admin: 07/02/19 03:10 Dose: 15 gm Documented by: [id number] Discontinued Medications Acetaminophen (Ofirmev) Confirm Administered Dose 1,000 mg IV .STK-MED ONE Stop: 07/01/19 22:49 Last Admin: 07/01/19 22:59 Dose: Not Given Documented by: [id number] Diphenhydramine HCl (Benadryl) 12.5 mg IV NOW STA Stop: 07/01/19 19:28 Last Admin: 07/01/19 22:52 Dose: 12.5 mg Documented by: [id number] Diphenhydramine HCl (Benadryl) Confirm Administered Dose 50 mg .ROUTE .STK-MED ONE Stop: 07/01/19 22:50 Last Admin: 07/01/19 23:00 Dose: Not Given Documented by: [id number] Famotidine (Pepcid 20mg Iv Push) Confirm Administered Dose 20 mg IV .STK-MED ONE Stop: 07/01/19 22:50 Last Admin: 07/01/19 23:00 Dose: Not Given Documented by: [id number] Sodium Chloride (Nss 1000ml) 2,000 mls @ 999 mls/hr IV .Q2H1M ONE Stop: 07/01/19 21:22 Last Infusion: 07/02/19 00:24 Dose: 0 mls/hr Documented by: [id number] Admin: 07/01/19 22:39 Dose: 999 mls/hr Documented by: [id number] Acetaminophen (Ofirmev) 1,000 mg in 100 mls @ 400 mls/hr IV NOW STA Stop: 07/01/19 19:36 Last Infusion: 07/01/19 23:28 Dose: 0 mls/hr Documented by: [id number] Admin: 07/01/19 22:52 Dose: 400 mls/hr Documented by: [id number] Famotidine (Pepcid 20mg Iv Push) 20 mg in 5 mls @ 2.5 mls/min IV NOW STA Stop: 07/01/19 19:23 Last Admin: 07/01/19 22:52 Dose: 2.5 mls/min Documented by: [id number] Prochlorperazine (Compazine) 1 mls @ 1 mls/min IV ONE ONE Stop: 07/01/19 19:28 Last Admin: 07/01/19 22:52 Dose: 1 mls/min Documented by: [id number] Ceftriaxone Sodium (Rocephin) 2,000 mg in 70 mls @ 140 mls/hr IV NOW STA Stop: 07/01/19 22:46 Last Infusion: 07/01/19 23:24 Dose: 0 mls/hr Documented by: [id number] Admin: 07/01/19 22:40 Dose: 140 mls/hr Documented by: [id number] Ioversol (Optiray 320 100ml) 93 ml IV ONCE PRN PRN Reason: Interaction Checking Stop: 07/05/19 22:24 Last Admin: 07/01/19 22:25 Dose: 93 ml Documented by: [id number] Prochlorperazine (Compazine) Confirm Administered Dose 10 mg .ROUTE .STK-MED ONE Stop: 07/01/19 22:49 Last Admin: 07/01/19 22:59 Dose: Not Given Documented by: [id number] Imaging Data Attestation: I personally reviewed and interpreted this imaging study as follows: Radiologist's Impression: XR chest 1V portable CLINICAL HISTORY: SEPSIS COMPARISON STUDY: 12/31/2013 FINDINGS: There is a left-sided central venous catheter. The heart is normal in size. There is a retrocardiac air-containing opacity consistent with a hiatal hernia. There is no lobar consolidation. There is no focal pulmonary consolidation. Subtle midlung zone opacities, likely represents summation with the inferior clavicular margins. There is minor basilar atelectasis IMPRESSION: 1. Hiatal hernia 2. No evidence of failure 3. No evidence of lobar consolidation 4. Bilateral parenchymal opacities likely representing a combination of summation and atelectatic change. ACT 112: Negative or not required by law. CT abd pelvis IV con only CLINICAL HISTORY: abd pain, fevers, chemo COMPARISON STUDY: 08/31/2017 TECHNIQUE: Patient was scanned in a dynamic helical fashion during intravenous administration of 93 cc of Optiray 320. A dose lowering technique was utilized adhering to the principles of ALARA. CT DOSE: 340.11 mGy.cm FINDINGS: Lower chest: The heart is normal in size and configuration, without pericardial effusion. The lung bases and pleural spaces are clear. There is a large hiatal hernia. There is a stable 2.5 mm left lower lobe pulmonary nodule. There is a stable 3 mm right lower lobe pulmonary nodule. Liver: The contrast-enhanced liver is normal in size, contour, and attenuation. There is no intrahepatic biliary ductal dilatation. The hepatic veins and portal veins are patent. Gallbladder: Mildly distended. No calculi identified. Spleen: Normal in size and attenuation. 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 Adrenal glands: Unremarkable. Kidneys: There is symmetric renal cortical enhancement. The kidneys are normal in size without hydronephrosis. Bowel: There are no transition zones to indicate bowel obstruction. There are multiple fluid-filled small bowel loops. There are scattered colonic stool. There is no evidence of acute diverticulitis. There are no findings to indicate acute appendicitis. There is borderline bowel wall thickening involving the transverse colon. There is mild gastric wall thickening and duodenal wall thickening suggestive of a gastroduodenitis. Peritoneum: There is no intraperitoneal free air or abdominal ascites. Vasculature: The abdominal aorta is normal in course and caliber. Adenopathy: None. Pelvic viscera: There is a vaginal pessary. Skeletal structures: No destructive osseous lesions are seen. IMPRESSION: 1. No evidence of bowel obstruction. No evidence of free air 2. Large hiatal hernia 3. Borderline bowel wall thickening involving the transverse colon. A colitis cannot be excluded. 4. Mild gastric wall thickening and duodenal wall thickening suggestive of a gastroduodenitis 5. Stable subcentimeter bilateral lower lobe pulmonary nodules 6. 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 Blood Pressure Blood Pressure Findings: Normal blood pressure Discharge Plan Visit Data *Final* Discharge Date/Time: 07/02/19 02:27 Chief Complaint: Fever Stated Complaint: FEVER, ACHES, SENT BY [facility] ED Provider: Lux Savage Discharge Problem: Neutropenic fever, Colitis, Gastritis, Abdominal pain Patient Disposition: Admitted As Inpatient Discharge Instructions Interventions: ED Discharge Assessment Last Done: 07/02/19 02:27 Meds Home Medications and Allergies Home Medications Medication Instructions Recorded Confirmed Type amlodipine 2.5 mg tablet 2.5 mg PO QAM 12/11/18 07/01/19 History levothyroxine 88 mcg tablet 88 mcg PO QAM #90 tab 12/11/18 07/01/19 History multivitamin 1 tab PO 1700 12/11/18 07/01/19 History cholecalciferol (vitamin D3) 125 5,000 units PO QAM 12/15/18 07/01/19 History mcg (5,000 unit) capsule Lactobacillus 2 cap PO BID cap 03/19/19 07/01/19 History acidophilus-Bifidobac.animalis 31 billion cell capsule aspirin [Aspirin Low Dose] 81 mg PO QPM 05/17/19 07/01/19 History lisinopril 2.5 mg PO QAM 05/17/19 07/01/19 History magnesium oxide 400 mg PO 1700 05/17/19 07/01/19 History calcium carbonate-vitamin D3 600 2 tab PO QAM tab 06/19/19 07/01/19 History mg (1,500 mg)-800 unit tablet insulin aspart U-100 100 unit/mL See Rx Instructions .ROUTE .COMPLEX 06/19/19 07/01/19 History subcutaneous solution ibuprofen 400 mg PO Q6H PRN 07/01/19 07/01/19 History Allergies Allergy/AdvReac Type Severity Reaction Status Date / Time losartan AdvReac Severe potassium Verified 07/01/19 20:37 elevation
[2019-07-01] MEDS ORDERED: ACETAMINOPHEN 1,000 MG/100 ML VIAL IV STA (19:22)
[2019-07-01] MEDS ORDERED: SODIUM CHLORIDE 0.9% 1000ML 2,000 ML IV ONE (19:22)
[2019-07-01] MEDS ORDERED: FAMOTIDINE 20MG IV PUSH 20 MG/5 ML SYR IV STA (19:22)
[2019-07-01] MEDS ORDERED: PROCHLORPERAZINE 1 ML IV ONE (19:27)
[2019-07-01] MEDS ORDERED: DiphenhydrAMINE HCL 50 MG/ML VIAL IV STA (19:27)
--- NOTE | 2019-07-01 19:43 | XRay Report ---
XR chest 1V portable CLINICAL HISTORY: SEPSIS COMPARISON STUDY: 12/31/2013 FINDINGS: There is a left-sided central venous catheter. The heart is normal in size. There is a retr ocardiac air-containing opacity consistent with a hiatal hernia. There is no lobar consolidation. The re is no focal pulmonary consolidation. Subtle midlung zone opacities, likely represents summation wi th the inferior clavicular margins. There is minor basilar atelectasis IMPRESSION: 1. Hiatal hernia 2. No evidence of failure 3. No evidence of lobar consolidation 4. Bilateral parenchymal opacities likely representing a combination of summation and atelectatic rick nge. ACT 112: Negative or not required by law. Electronically signed by: Howard Jacobsen M.D. 07/01/2019 7:42 PM
[2019-07-01 21:13] LABS: Hematocrit (blood only) 36.5 % (37-47); Hemoglobin 12.1 g/dL (12.0-16.0); Mean Corpuscular Hemoglobin 28.6 pg (25-34); Mean Corpuscular Hgb Conc 33.2 g/dL (32-36); Mean Corpuscular Volume 86.3 fL (80-100); Mean Platelet Volume 11.4 fL (7.4-10.4); Platelet Count 165 K/uL (130-400); RDW Coefficient of Variation 13.4 % (11.5-14.5); RDW Standard Deviation 42.5 fL (36.4-46.3); Red Blood Count 4.23 M/uL (4.2-5.4); White Blood Count 2.04 K/uL (4.8-10.8)
[2019-07-01 21:26] LABS: INR 1.1 (0.9-1.1); Partial Thromboplastin Ratio 1.3; Partial Thromboplastin Time 36.7 Seconds (21.0-31.0); Prothrombin Time 11.6 Seconds (9.0-12.0)
[2019-07-01 21:32] LABS: Alanine Aminotransferase 21 U/L (12-78); Albumin Level 2.4 gm/dl (3.4-5.0); Aspartate Aminotransferase 13 U/L (15-37); BUN Creatinine Ratio 16.9 (10-20); Blood Urea Nitrogen 20 mg/dl (7-18); Calcium 8.1 mg/dl (8.5-10.1); Carbon Dioxide 28 mmol/L (21-32); Chloride 101 mmol/L (98-107); Creatinine Clr Calc Pharmacy 35.6 ml/min; Est GFR (African American) 49.3; Est GFR (Non-African American) 42.5; Glucose 133 mg/dl (70-99); Magnesium 2.2 mg/dl (1.8-2.4); Sodium 133 mmol/L (136-145)
[2019-07-01 21:45] LABS: Albumin Globulin Ratio 0.7 (0.9-2); Alkaline Phosphatase 84 U/L (45-117); Bilirubin,Total 0.4 mg/dl (0.2-1); Creatine Kinase 36 U/L (26-192); Globulin 3.2 gm/dl (2.5-4.0); Phosphorus 2.2 mg/dl (2.5-4.9); Total Protein 5.6 gm/dl (6.4-8.2); Troponin I < 0.015 ng/ml (0-0.045)
[2019-07-01 22:06] LABS: Influenza A virus by PCR Neg for Influ A (Neg); Influenza B virus by PCR Neg for Influ B (Neg)
[2019-07-01 22:10] LABS: Dohle Bodies 1+; Echinocytes 1+; Eosinophils % (auto) 4.9 %; Immature Granulocytes # (auto) 0.01 K/uL (0.00-0.02); Immature Granulocytes % (auto) 0.5 %; Lymphocytes # (auto) 0.74 K/uL (1.2-3.4); Lymphocytes % (auto) 36.3 %; Monocytes # (auto) 0.83 K/uL (0.11-0.59); Monocytes % (auto) 40.7 %; Neutrophils # (auto) 0.36 K/uL (1.4-6.5); Neutrophils % (auto) 17.6 %
[2019-07-01] MEDS ORDERED: cefTRIAXone SODIUM 2,000 MG/70 ML BAG IV STA (22:17)
[2019-07-01] MEDS ORDERED: IOVERSOL 100ml IV PRN (22:25)
--- NOTE | 2019-07-01 22:31 | CT Scan Report ---
CT abd pelvis IV con only CLINICAL HISTORY: abd pain, fevers, chemo COMPARISON STUDY: 08/31/2017 TECHNIQUE: Patient was scanned in a dynamic helical fashion during intravenous administration of 93 c c of Optiray 320. A dose lowering technique was utilized adhering to the principles of ALARA. CT DOSE: 340.11 mGy.cm FINDINGS: Lower chest: The heart is normal in size and configuration, without pericardial effusion. The lung ba ses and pleural spaces are clear. There is a large hiatal hernia. There is a stable 2.5 mm left lower lobe pulmonary nodule. There is a stable 3 mm right lower lobe pulmonary nodule. Liver: The contrast-enhanced liver is normal in size, contour, and attenuation. There is no intrahepa tic biliary ductal dilatation. The hepatic veins and portal veins are patent. Gallbladder: Mildly distended. No calculi identified. Spleen: Normal in size and attenuation. 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 Adrenal glands: Unremarkable. Kidneys: There is symmetric renal cortical enhancement. The kidneys are normal in size without hydron ephrosis. Bowel: There are no transition zones to indicate bowel obstruction. There are multiple fluid-filled s mall bowel loops. There are scattered colonic stool. There is no evidence of acute diverticulitis. Th ere are no findings to indicate acute appendicitis. There is borderline bowel wall thickening involvi ng the transverse colon. There is mild gastric wall thickening and duodenal wall thickening suggestiv e of a gastroduodenitis. Peritoneum: There is no intraperitoneal free air or abdominal ascites. Vasculature: The abdominal aorta is normal in course and caliber. Adenopathy: None. Pelvic viscera: There is a vaginal pessary. Skeletal structures: No destructive osseous lesions are seen. IMPRESSION: 1. No evidence of bowel obstruction. No evidence of free air 2. Large hiatal hernia 3. Borderline bowel wall thickening involving the transverse colon. A colitis cannot be excluded. 4. Mild gastric wall thickening and duodenal wall thickening suggestive of a gastroduodenitis 5. Stable subcentimeter bilateral lower lobe pulmonary nodules 6. 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 Electronically signed by: Howard Jacobsen M.D. 07/01/2019 10:30 PM
[2019-07-01] MEDS ORDERED: PROCHLORPERAZINE 5 MG/ML 2 ML VIAL ONE (22:48)
[2019-07-01] MEDS ORDERED: ACETAMINOPHEN 1000 MG/100 ML IV IV ONE (22:48)
[2019-07-01] MEDS ORDERED: DiphenhydrAMINE HCL 50 MG/ML VIAL ONE (22:49)
[2019-07-01] MEDS ORDERED: FAMOTIDINE 20MG/5ML IV PUSH IV ONE (22:49)
--- NOTE | 2019-07-02 00:35 | History & Physical Report ---
Date of Service July 02, 2019 Assessment & Plan (1) Diabetes: Colleen Franco is a 79-year-old woman with recently diagnosed breast cancer who started chemotherapy on Tuesday and is now presenting with symptoms of belly pain and fever with neutropenia Neutropenic fever Patient with neutropenia, ANC of 0.36 Patient febrile to 100.7, cancer recommended, to emergency department for evaluation CTs abdomen showing evidence of nonspecific colitis Patient has remained afebrile in emergency department but because of her neutropenia and reported home fever we will start her on antibiotics for assumed intra-abdominal infection Cipro and Flagyl IV We will consult oncology Type 1 diabetes We will allow patient to use her own insulin pump Hypertension: We will continue home lisinopril amlodipine Hypothyroidism Continuing patient's home levothyroxine Patient wishes to be DNR/DNI F/E/N: Given 2 L normal saline in emergency department, continuing with normal saline at 100 mils per hour DVT prophylaxis: Lovenox Dispo: We will admit for neutropenic fever blood cultures drawn x2, started on Cipro and Flagyl, await oncology consultation (2) Hypothyroidism: (3) Hypertension: (4) 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 About tuesday of this week she started to feel off with abdominal pain and low grade temps. Eventually today she called oncology today and mentioned that she had a temperature of 100.7. She was told to come get evaluated in ED as she might have neutropenic fever. In ED patient has remained afebrile, with all vital signs WNL. she is still having the abdominal pain she rates at about a 6/10, and a sore throat she tells me has been present since she was intubated from her intubation when she received her port. She also tells me she has had little to no appetite and hasn't been drinking more than a few glasses of water per day since last tuesday. Labwork significant for neutropenia with ANC of .36. She also has an elevated creatinine of 1.21, low albumin and negative troponin. ECG showing what appears to be normal sinus rhythm but with artifact resembling a flutter will repeat. She lives at home, four children all live nearby. She is ambulating okay and has not had any falls. No other acute concerns given 2 L fluid in ED as well as zofran. Not requiring any pain medication at this time beyond tylenol. Allergies Allergy/AdvReac Type Severity Reaction Status Date / Time losartan AdvReac Severe potassium Verified 07/01/19 20:37 elevation Home Medications Home Medications Medication Instructions Recorded Confirmed Type amlodipine 2.5 mg tablet 2.5 mg PO QAM 12/11/18 07/01/19 History levothyroxine 88 mcg tablet 88 mcg PO QAM #90 tab 12/11/18 07/01/19 History multivitamin 1 tab PO 1700 12/11/18 07/01/19 History cholecalciferol (vitamin D3) 125 5,000 units PO QAM 12/15/18 07/01/19 History mcg (5,000 unit) capsule Lactobacillus 2 cap PO BID cap 03/19/19 07/01/19 History acidophilus-Bifidobac.animalis 31 billion cell capsule aspirin [Aspirin Low Dose] 81 mg PO QPM 05/17/19 07/01/19 History lisinopril 2.5 mg PO QAM 05/17/19 07/01/19 History magnesium oxide 400 mg PO 1700 05/17/19 07/01/19 History atorvastatin 10 mg tablet 10 mg PO HS #90 tab 06/13/19 07/01/19 Rx calcium carbonate-vitamin D3 600 2 tab PO QAM tab 06/19/19 07/01/19 History mg (1,500 mg)-800 unit tablet insulin aspart U-100 100 unit/mL See Rx Instructions .ROUTE .COMPLEX 06/19/19 07/01/19 History subcutaneous solution ibuprofen 400 mg PO Q6H PRN 07/01/19 07/01/19 History Past Med/Surg History Medical History Anemia hx Breast cancer right Diabetes mellitus type 1 + insulin pump/[facility]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 GERD (gastroesophageal reflux disease) diet controlled Hyperlipidemia Hypertension Hypothyroidism Osteoarthritis Urinary incontinence Surgical History History of breast biopsy right History of carpal tunnel release bilateral History of cataract surgery bilateral History of colonoscopy Hx of tonsillectomy S/P thyroid biopsy Family History Sister Breast cancer Father Cancer Brother Diabetes Brother Diabetes Other No family history of adverse response to anesthesia Social History Preferred Language: Yoruba Communication Ability: Effective Hvac/R Service Technician Required: No Beliefs That Will Affect Care: None marital status: / Current Living Situation: Alone Current Living Situation Comment: mother lives with her. current occupational status: retired Feels Safe at Home: Yes Safety Concerns: Feels Safe At This Time Smoking Status: Never smoker Second Hand Exposure: Yes (hx as a child) ; Hx Alcohol Use: No Hx Substance Use: No Review of Systems Constitutional: + fever, + chills, + fatigue, + weakness and + anorexia Eyes: no problem reported Ear, Nose, Mouth, Throat: + sore throat and + pain with swallowing Respiratory: + dyspnea on exertion; no cough and no dyspnea Cardiovascular: + dyspnea on exertion; no chest pain, no dyspnea at rest, no lightheadedness, no syncope and no calf pain Gastrointestinal: + abdominal pain; no nausea and no vomiting Genitourinary: no dysuria and no urinary frequency Neurologic: no problem reported Physical Exam Physical Exam: Constitutional: Well appearing, 79 year old woman appearing stated age in no distress Eyes, EOMMI bilaterally, PERRLA, Neck: Supple no masses ENMT: External appearance normal REspiratory: Chest expansion equal, no increased work of breathing, lung sounds vesicular throughout Cardiovascular: S 1 S2 normal, no m/r/s/g, regular rate regular rhythm GI: Abdomen soft, tender throughout, no focal areas of tenderness, bowel sounds present in all four quadrants, no hepatosplenomegaly Neuro: No focal deficits, AA&Ox4 Results & Data Vital Signs (Past 12 Hours) Vital Signs Temp Pulse Resp BP Pulse Ox 07/02/19 00:00 85 19 134/67 98 07/01/19 23:45 81 18 129/69 98 07/01/19 23:30 93 H 25 H 159/69 H 99 07/01/19 23:15 91 H 16 146/91 H 97 07/01/19 23:00 88 19 139/67 97 07/01/19 22:45 36.8 C 84 20 132/65 97 07/01/19 22:30 87 17 113/67 98 07/01/19 22:00 88 17 122/80 96 07/01/19 21:45 85 21 135/76 96 07/01/19 21:31 87 19 96 07/01/19 21:30 86 20 122/72 96 07/01/19 21:23 86 20 126/58 L 96 07/01/19 21:15 88 18 07/01/19 21:00 88 16 07/01/19 20:52 84 22 07/01/19 20:45 85 19 127/67 07/01/19 19:22 93 H 95 07/01/19 19:07 37.4 C 123 H 22 124/63 96 Supervising Physician Co-Signing Physician Notes Patient seen and examined, chart reviewed, case discussed with Dr. Chowdhury and I agree with his assessment and plan as documented above. Briefly, patient is a 79yo C female with history of breast cancer on chemotherapy presenting with febrile neutropenia, abdominal pain and sore throat On exam she is currently afebrile, HD stable Gen - nontoxic Skin - intact, no rashes/lesions HEENT - NC/AT, PERRL, EOMI, Dry mucus membranes, +Thrush Heart - +S1/S2, regular Lungs - CTA Abd - +BS, soft, diffusely tender with palpation, no rebound/guarding/peritoneal signs Labs and images reviewed. WBC=2.04, N=0.36 Assessment/Plan: 79yo C female with breast CA, chemo, neutropenic fever most likely secondary to colitis. Infectious vs inflammatory vs chemo related -Abx with Cipro/Flagyl -Oncology consultation appreciated -Remainder of plan as above Resident Activity Tracking Resident Involvement: Resident Care Provided Care Provided: Adult [facility] Medicine
[2019-07-02] MEDS: SODIUM CHLORIDE 0.9% 1000ML 1,000 ML IV SCH ×3 (00:51→22:33)
[2019-07-02] MEDS ORDERED: ALUMINUM/MAGNESIUM SUSP 30 ML UDC PO PRN (02:50)
[2019-07-02] MEDS ORDERED: GLUCOSE 10 TABS/TUBE PO PRN (02:50)
[2019-07-02] MEDS ORDERED: GLUCAGON FOR INJ 1 MG VIAL SQ PRN (02:50)
[2019-07-02] MEDS ORDERED: POLYETHYLENE (MIRALAX) 17 GM PACK PO PRN (02:50)
[2019-07-02] MEDS ORDERED: ACETAMINOPHEN 325 MG TAB PO PRN (02:50)
[2019-07-02] MEDS ORDERED: NYSTATIN 30 ML, DEXAMETHASONE CONC 3.75 MG, DiphenhydrAMINE Syrup 300 MG, ORA-SWEET SYR... PO PRN (02:50)
[2019-07-02] MEDS ORDERED: DEXTROSE 50% 50 ML SYRINGE IV PRN (02:50)
[2019-07-02] MEDS ORDERED: GLUCOSE 40% GEL 15 GM TUBE PO PRN (02:50)
[2019-07-02] MEDS: CARBOHYDRATES FOR HYPOGLYCEMIA PO PRN ×2 (03:10→11:52)
[2019-07-02] MEDS: CIPROFLOXACIN / D5W 400 MG/200 ML BAG IV SCH ×2 (03:39→17:31)
[2019-07-02] MEDS: metroNIDAZOLE 500 MG/100 ML BAG IV SCH ×3 (03:39→19:53)
[2019-07-02] MEDS: IBUPROFEN 200 MG TAB PO PRN ×2 (04:56→17:29)
[2019-07-02 05:24] LABS: Appearance Urine Clear (Clear); Bilirubin Urine Negative (Negative); Blood Urine Negative (Negative); Color Urine Yellow; Glucose Urine UA Negative (Negative); Ketones Urine Trace (Negative); Leukocyte Esterase Urine Trace (Negative); Nitrite Urine Negative (Negative); Protein Urine Negative (Negative); Urobilinogen Urine Negative (Negative); pH Urine 5.5 (4.5-7.5)
[2019-07-02 05:47] LABS: Bacteria Urine Negative (Negative); RBC Urine 0-4 /hpf (0-4)
[2019-07-02] MEDS: LEVOTHYROXINE SODIUM 88 MCG TABLET PO SCH (05:55)
--- NOTE | 2019-07-02 06:25 | Billing Data ---
Date of Service July 02, 2019 Coding Level of Care Code 10789 Initial Inpt Care Lvl 3
[2019-07-02] MEDS: AMLODIPINE BESYLATE 5 MG TAB PO SCH (08:32)
[2019-07-02] MEDS: CHOLECALCIFEROL 1,000 UNITS 25 MCG TAB PO SCH (08:32)
[2019-07-02] MEDS: ENOXAPARIN INJ 40 MG/0.4 ML SYR SQ SCH (08:33)
[2019-07-02] MEDS: CALCIUM 600MG + VIT D 400 IU TAB PO SCH (08:33)
[2019-07-02] MEDS ORDERED: [UNRECOGNIZED DRUG - OTHER] PO SCH (09:00)
[2019-07-02 09:48] LABS: Hematocrit (blood only) 34.3 % (37-47); Hemoglobin 11.1 g/dL (12.0-16.0); Mean Corpuscular Hemoglobin 28.4 pg (25-34); Mean Corpuscular Hgb Conc 32.4 g/dL (32-36); Mean Corpuscular Volume 87.7 fL (80-100); Platelet Count 177 K/uL (130-400); RDW Coefficient of Variation 13.6 % (11.5-14.5); RDW Standard Deviation 43.4 fL (36.4-46.3); Red Blood Count 3.91 M/uL (4.2-5.4); White Blood Count 4.36 K/uL (4.8-10.8)
[2019-07-02 10:17] LABS: BUN Creatinine Ratio 14.8 (10-20); Calcium 7.8 mg/dl (8.5-10.1); Creatinine Clr Calc Pharmacy 36.5 ml/min; Est GFR (African American) 49.3; Est GFR (Non-African American) 42.5; Potassium 4.2 mmol/L (3.5-5.1)
[2019-07-02 11:02] LABS: Basophils # (auto) 0.01 K/uL (0-0.2); Basophils % (auto) 0.2 %; Dohle Bodies 1+; Echinocytes 1+; Eosinophils # (auto) 0.14 K/uL (0-0.5); Eosinophils % (auto) 3.2 %; Immature Granulocytes # (auto) 0.02 K/uL (0.00-0.02); Immature Granulocytes % (auto) 0.5 %; Lymphocytes # (auto) 1.16 K/uL (1.2-3.4); Lymphocytes % (auto) 26.6 %; Monocytes % (auto) 25.2 %; Neutrophils # (auto) 1.93 K/uL (1.4-6.5); Neutrophils % (auto) 44.3 %; Toxic Granulation 2+; Toxic Vacuolation 1+
--- NOTE | 2019-07-02 11:49 | Hospitalist Progress Note ---
Date of Service July 02, 2019 Assessment & Plan (1) Neutropenic fever: Patient with neutropenia, ANC of 0.36 on admission CTs abdomen showing evidence of nonspecific colitis Continue Cipro and Flagyl IV Stool cultures, cdiff BC pending Consult oncology (2) Diabetes: Continue insulin pump (3) Hypothyroidism: continue levothyroxine (4) Hypertension: Continue lisinopril and amlodipine (5) Breast cancer: Consulted heme/onc (6) Colitis: As seen on CT Treatment as above (7) DVT prophylaxis: Enoxaparin Admission and Anticipated Discharge Date Admission Date: July 02, 2019 Subjective Ms. Franco reports feeling better today. Her abdominal pain has improved quite a bit. She is having some diarrhea this morning with multiple stools. ROS Constitutional: no chills, aches, sweats or fever Respiratory: no sob,cough, sputum, or wheezing Cardiac: no chest pain, palpitations, edema, orthopnea or lightheadedness GI: no abdominal pain, nausea, vomiting, constipation : no dysuria or hesitancy Extremities: no joint pain or weakness Skin: no rash All other systems reviewed and negative Physical Exam Physical Exam: General: no distress Eyes: normal inspection, PERLL Respiratory: chest non tender, clear to auscultation, normal breath sounds, no respiratory distress, no accessory muscle use Cardiac: regular rate and rhythm, no rub or gallop, no murmur, no edema, no jvd GI/: active bowel sounds, mild tenderness to palpation, soft, non distended Extremities: normal range of motion, normal strength, non tender Neuro/Psych: alert and oriented x 3, normal mood and affect Skin: normal color, dry Results & Data ([facility]) Vital Signs (Past 12 Hours) Vital Signs Temp Pulse Pulse Resp BP BP Pulse Ox 07/02/19 11:21 36.9 C 84 18 106/63 96 07/02/19 07:18 36.3 C L 85 20 122/74 94 07/02/19 02:50 36.8 C 93 H 18 127/74 96 07/02/19 02:15 77 15 108/51 L 98 07/02/19 02:00 79 14 120/80 98 07/02/19 01:45 83 16 117/67 98 07/02/19 01:30 79 14 136/72 98 07/02/19 01:15 78 14 112/49 L 98 07/02/19 01:00 80 14 101/67 98 07/02/19 00:45 82 14 114/56 L 98 07/02/19 00:30 82 16 133/66 98 07/02/19 00:15 83 20 132/80 100 07/02/19 00:00 85 19 134/67 98 07/01/19 23:45 81 18 129/69 98 PG Care Time/CCT Total # of Minutes Spent Total Time Spent with Patient: Total time spent is greater than 50% in coordination of care (as documented) at patient's floor/unit and/or counseling patient: Coding Level of Care Code 24791 Subseq Hosp Care Lvl 2 Diagnoses Neutropenic fever D70.9; R50.81 Diabetes E11.9 Hypothyroidism E03.9 Hypertension I10 Breast cancer C50.919 Colitis K52.9 DVT prophylaxis Z29.9
[2019-07-02] MEDS ORDERED: PHARMACY GLYCEMIC MGMT CONSULT PRN (14:02)
[2019-07-02] MEDS ORDERED: INSULIN ASPART 100 UNITS/ML VIAL SC PRN (14:45)
--- NOTE | 2019-07-02 15:00 | Pharmacy Report ---
Glycemic Control Consultation - Date of Service July 02, 2019 - Scope Scope: Glycemic Pharmacist consulted for glycemic control and to write orders per [facility] inpatient glycemic control protocol. - Objective Weight: 74.6 kg Accuchecks BSG (last 24hrs): 07/01/19 07/02/19 07/02/19 20:50 03:01 03:02 Glucose 133 H POC Glucose 61 L* 62 L* 07/02/19 07/02/19 07/02/19 03:25 07:37 09:22 Glucose 109 H POC Glucose 73 138 H 07/02/19 07/02/19 11:48 12:12 Glucose POC Glucose 69 L* 70 Laboratory Data (last 24hrs): 07/01/19 07/02/19 20:50 09:22 Potassium 5.0 4.2 D Carbon Dioxide 28 25 Anion Gap 4.0 6.0 Creatinine 1.21 H 1.21 H Est Cr Clr Drug Dosing 35.6 36.5 - Recent Pertinent Medications Outpatient Anti-diabetic Regimen: * Novolog pump: basal settings: - 2421-5517 0.5 units/hr - 0994-9853 0.625 units/hr - 4054-1427 0.750 units/hr - 1106-4255 0.55 units/hr = total ~15.7 units/day *uses CF of 40 and CR of 13 * A1c = 10.4 % 05/18/19 Risk Factors for Insulin Resistance: * Infection: yes * Diet: T1DM - Assessment & Plan Assessment & Plan: ASSESSMENT: * 79 year old recently diagnosed with breast cancer with possible fever/neutropenia * Type 1 diabetic managed on novolog pump at home and continued on admission. BSGs low on admission 62 mg/dL - likely related to poor oral intake. Patient follows [facility] endocrinology for diabetes management. She states that they have been following her very closely due to recent steroid use (~1 week ago) she had been given for her chemotherapy * Patient confirms with me current insulin pump settings. States she did have poor oral intake prior to admission, but feel like she is starting to eat more. Denies any low BSGs <70 w/in the last few days. Typically uses CR of 13 at home, but for lunch she states she gave herself less insulin to help with lower BSGs * Patient seems knowledgeable about using insulin pump and making adjustments. Had told her that pharmacy will follow and if her BSGs continue to remain lower that we will have to transition her off of insulin pump. Patient hesitant to d/c pump as she states she had it discontinued another admission and her BSGs got really elevated and uncontrolled * However, she did agree if BSGs remain lower or go low dinner/HS that we could utilize basal/bolus instead of pump. Patient aware to contact pharmacy if she has questions/concerns PLAN FOR INPATIENT GLYCEMIC CONTROL: * Continue insulin pump - will monitor closely / consider transition to SQ insulin if BSGs remain lower * Please note that the plan above was derived based on current level of insulin resistance and hospital stress. These recommendations are appropriate for inpatient admission only. Plan of care upon discharge will need to be reassessed to avoid potential outpatient hypo/hyperglycemia. Thank you.
[2019-07-02] MEDS: MULTIVITAMIN TAB PO SCH (17:31)
[2019-07-02] MEDS: MAGNESIUM OXIDE 400 MG TAB PO SCH (17:31)
[2019-07-02] MEDS: NovoLOG INSULIN PUMP SCH ×2 (19:00→22:14)
[2019-07-02] MEDS: ATORVASTATIN 10 MG TAB PO SCH (22:15)
[2019-07-02] MEDS: ASPIRIN 81 MG ECTAB PO SCH (22:15)
[2019-07-03] MEDS: metroNIDAZOLE 500 MG/100 ML BAG IV SCH ×3 (03:07→18:54)
[2019-07-03] MEDS: CIPROFLOXACIN / D5W 400 MG/200 ML BAG IV SCH ×2 (04:35→16:09)
[2019-07-03] MEDS: LEVOTHYROXINE SODIUM 88 MCG TABLET PO SCH (04:37)
--- NOTE | 2019-07-03 05:42 | Electrocardiogram Report ---
Test Reason : Blood Pressure : / mmHG Vent. Rate : 089 BPM Atrial Rate : 089 BPM P-R Int : 134 ms QRS Dur : 068 ms QT Int : 336 ms P-R-T Axes : 006 022 101 degrees QTc Int : 408 ms Poor data quality, interpretation may be adversely affected Normal sinus rhythm Cannot rule out Anterior infarct , age undetermined Nonspecific T wave abnormality Abnormal ECG When compared with ECG of 18-MAY-2019 11:45, No significant change was found Confirmed by Luis Alcaraz ([id number]) on 07/03/2019 5:42:25 AM Referred By: Juan Oliveros Confirmed By:Luis Alcaraz
[2019-07-03] MEDS: ENOXAPARIN INJ 40 MG/0.4 ML SYR SQ SCH (08:21)
[2019-07-03] MEDS: CALCIUM 600MG + VIT D 400 IU TAB PO SCH (08:21)
[2019-07-03] MEDS: SODIUM CHLORIDE 0.9% 1000ML 1,000 ML IV SCH ×2 (08:21→20:09)
[2019-07-03] MEDS: CHOLECALCIFEROL 1,000 UNITS 25 MCG TAB PO SCH (08:22)
[2019-07-03] MEDS: AMLODIPINE BESYLATE 5 MG TAB PO SCH (08:22)
[2019-07-03 09:22] LABS: Hematocrit (blood only) 32.4 % (37-47); Hemoglobin 10.7 g/dL (12.0-16.0); Mean Corpuscular Hemoglobin 28.6 pg (25-34); Mean Corpuscular Volume 86.6 fL (80-100); Mean Platelet Volume 10.4 fL (7.4-10.4); Platelet Count 214 K/uL (130-400); RDW Coefficient of Variation 13.7 % (11.5-14.5); RDW Standard Deviation 43.7 fL (36.4-46.3); Red Blood Count 3.74 M/uL (4.2-5.4); White Blood Count 14.23 K/uL (4.8-10.8)
[2019-07-03] MEDS ORDERED: INSULIN GLARGINE SOLOSTAR 100 UNITS/ML 3 ML PEN SC ONE (09:45)
[2019-07-03 09:51] LABS: ALC (manual) 1.49 K/uL (1.2-3.4); ANC (manual) 11.36 K/uL (1.4-6.5); Eosinophils # (manual) 0.13 K/uL (0-0.5); Eosinophils % (manual) 0.9 %; Lymphocytes # (manual) 1.49 K/uL (1.2-3.4); Lymphocytes % (manual) 10.5 %; Monocytes # (manual) 1.12 K/uL (0.11-0.59); Monocytes % (manual) 7.9 %; Myelocytes # (manual) 0.13 K/uL (0-0); Myelocytes % (manual) 0.9 %; Neutrophils # (manual) 11.36 K/uL (1.4-6.5); Neutrophils % (manual) 79.8 %; Toxic Granulation 1+
[2019-07-03 10:06] LABS: BUN Creatinine Ratio 11.6 (10-20); Creatinine Clr Calc Pharmacy 43.8 ml/min; Est GFR (African American) 59.9; Est GFR (Non-African American) 51.7; Potassium 4.1 mmol/L (3.5-5.1)
[2019-07-03] MEDS ORDERED: [UNRECOGNIZED DRUG - REMARK] ONE (11:45)
--- NOTE | 2019-07-03 12:01 | Pharmacy Report ---
Pharmacy Glycemic Short Note 2 - Date of Service July 03, 2019 - Glycemic Short BSG Results (Last 24 hours): 07/02/19 07/02/19 07/02/19 11:48 12:12 17:09 Glucose POC Glucose 69 L* 70 76 07/02/19 07/03/19 07/03/19 21:06 08:16 09:08 Glucose 119 H POC Glucose 112 H 90 07/03/19 11:39 Glucose POC Glucose 145 H OUTPATIENT ANTIDIABETIC REGIMEN: * Novolog pump: * basal settings: * 1868-2857 0.5 units/hr * 9879-3756 0.625 units/hr * 3745-9571 0.750 units/hr * 7008-1794 0.55 units/hr * total ~15.7 units/day * Correction Factor: 55mg/dL/unit * Carb Ratio: 1 unit per 13gm CHO with breakfast, and 12gm CHO with all other meals * A1c = 10.4 % 05/18/19 ASSESSMENT: * Type 1 diabetic admitted with febrile neutropenia * BSGs have been running less than 100 consistently - with the above basal settings * Pt had concerns that her insulin supply was running low and that her pump supplies were not with her to refill. She was requesting basal/bolus SQ regimen per Pharmacy service * Transitioned patient to Lantus once daily utilizing a 20-25% reduction in dose in light of decreased PO intake and BSGs less than 100 * Novolog doses will be equivalent to her pump's CF and CR doses PLAN FOR INPATIENT GLYCEMIC CONTROL: * Basal insulin * Lantus 12 units SQ Q AM * DC Novolog pump 2 hrs after 1st Lantus dose given * Bolus insulin * NovoLog per scale ACHS and at 0000 + 0400 tonight (to screen for hyper- /hypoglycemia due to transition to SQ) * Goal Range: Low 110 mg/dL - High 140 mg/dL * Correction Factor: 55 mg/dL/unit (65mg/dL/unit overnight) * Nutritional / Prandial insulin per carb ratio of 1 unit per 13 grams CHO consumed PLAN FOR DISCHARGE: * to be determined
--- NOTE | 2019-07-03 12:15 | Hospitalist Progress Note ---
Date of Service July 03, 2019 Assessment & Plan (1) Neutropenic fever: Patient with neutropenia, ANC of 0.36 on admission, now with leukocytosis CTs abdomen showing evidence of nonspecific colitis Continue Cipro and Flagyl IV Stool cultures pending, cdiff negative BC ngtd Consult oncology (2) Leukocytosis: WBCs 14 today, unclear if patient had neupogen from the chart, clinically improving, no fevers (3) Diabetes: Continue insulin pump, glycemic pharmacy consult (4) Hypothyroidism: continue levothyroxine (5) Hypertension: Continue lisinopril and amlodipine (6) Breast cancer: Consulted heme/onc (7) Colitis: As seen on CT Treatment as above (8) DVT prophylaxis: Enoxaparin Admission and Anticipated Discharge Date Admission Date: July 02, 2019 Subjective Ms. Franco continues to feel unwell with multiple bowel movement per day. She does not have any pain. No other complaints ROS Constitutional: no chills, aches, sweats or fever Respiratory: no sob,cough, sputum, or wheezing Cardiac: no chest pain, palpitations, edema, orthopnea or lightheadedness GI: no abdominal pain, nausea, vomiting, or constipation : no dysuria or hesitancy Extremities: no joint pain or weakness Skin: no rash All other systems reviewed and negative Physical Exam Physical Exam: General: no distress Eyes: normal inspection, PERLL Respiratory: chest non tender, clear to auscultation, normal breath sounds, no respiratory distress, no accessory muscle use Cardiac: regular rate and rhythm, no rub or gallop, no murmur, no edema, no jvd GI/: active bowel sounds, no abd pain or tenderness, soft, non distended Extremities: normal range of motion, normal strength, non tender Neuro/Psych: alert and oriented x 3, normal mood and affect Skin: normal color, dry Results & Data ([facility]) Vital Signs (Past 12 Hours) Vital Signs Temp Pulse Resp BP Pulse Ox 07/03/19 11:53 36.7 C 85 18 144/69 H 96 07/03/19 07:34 36.7 C 85 18 148/83 H 95 07/03/19 03:38 36.5 C 74 16 133/76 95 PG Care Time/CCT Total # of Minutes Spent Total Time Spent with Patient: Total time spent is greater than 50% in coordination of care (as documented) at patient's floor/unit and/or counseling patient: Coding Level of Care Code 22320 Subseq Hosp Care Lvl 2 Diagnoses Neutropenic fever D70.9; R50.81 Leukocytosis D72.829 Diabetes E11.9 Hypothyroidism E03.9 Hypertension I10 Breast cancer C50.919 Colitis K52.9 DVT prophylaxis Z29.9
[2019-07-03] MEDS: INSULIN ASPART 100 UNITS/ML 3 ML PEN SC SCH ×4 (13:23→23:52)
[2019-07-03] MEDS: MAGNESIUM OXIDE 400 MG TAB PO SCH (16:10)
[2019-07-03] MEDS: MULTIVITAMIN TAB PO SCH (16:10)
[2019-07-03] MEDS: IBUPROFEN 200 MG TAB PO PRN (18:37)
[2019-07-03] MEDS: ATORVASTATIN 10 MG TAB PO SCH (20:14)
[2019-07-03] MEDS: ASPIRIN 81 MG ECTAB PO SCH (20:14)
[2019-07-03] MEDS: ONDANSETRON INJ 2 MG/ML 2 ML VIAL IV PRN (20:19)
[2019-07-04] MEDS: metroNIDAZOLE 500 MG/100 ML BAG IV SCH ×3 (03:29→19:26)
[2019-07-04] MEDS: INSULIN ASPART 100 UNITS/ML 3 ML PEN SC SCH ×5 (03:30→20:23)
[2019-07-04] MEDS: IBUPROFEN 200 MG TAB PO PRN (03:42)
[2019-07-04] MEDS: CIPROFLOXACIN / D5W 400 MG/200 ML BAG IV SCH ×2 (04:31→15:39)
[2019-07-04] MEDS: ONDANSETRON INJ 2 MG/ML 2 ML VIAL IV PRN ×2 (04:45→10:35)
[2019-07-04 06:20] LABS: Hematocrit (blood only) 32.9 % (37-47); Hemoglobin 10.7 g/dL (12.0-16.0); Mean Corpuscular Hemoglobin 28.5 pg (25-34); Mean Corpuscular Hgb Conc 32.5 g/dL (32-36); Mean Corpuscular Volume 87.7 fL (80-100); Platelet Count 259 K/uL (130-400); RDW Coefficient of Variation 13.8 % (11.5-14.5); RDW Standard Deviation 44.6 fL (36.4-46.3); Red Blood Count 3.75 M/uL (4.2-5.4); White Blood Count 17.04 K/uL (4.8-10.8)
[2019-07-04] MEDS: SODIUM CHLORIDE 0.9% 1000ML 1,000 ML IV SCH (06:34)
[2019-07-04] MEDS: LEVOTHYROXINE SODIUM 88 MCG TABLET PO SCH (06:35)
[2019-07-04 06:48] LABS: BUN Creatinine Ratio 9.4 (10-20); Calcium 8.4 mg/dl (8.5-10.1); Creatinine Clr Calc Pharmacy 37.9 ml/min; Est GFR (African American) 50.3; Est GFR (Non-African American) 43.4; Potassium 4.6 mmol/L (3.5-5.1)
[2019-07-04 07:21] LABS: ANC (manual) 14.04 K/uL (1.4-6.5); Dohle Bodies 1+; Echinocytes 1+; Eosinophils # (manual) 0.31 K/uL (0-0.5); Eosinophils % (manual) 1.8 %; Lymphocytes % (manual) 3.5 %; Monocytes % (manual) 8.8 %; Myelocytes % (manual) 3.5 %; Neutrophils # (manual) 14.04 K/uL (1.4-6.5); Neutrophils % (manual) 82.4 %; Toxic Granulation 2+
[2019-07-04] MEDS: INSULIN GLARGINE SOLOSTAR 100 UNITS/ML 3 ML PEN SC SCH (08:42)
[2019-07-04] MEDS: NovoLOG INSULIN PUMP SCH (08:43)
[2019-07-04] MEDS: HEPARIN 100 UNIT/ML 5ML FLUSH FLUSH PRN ×3 (08:45→17:47)
[2019-07-04] MEDS: CHOLECALCIFEROL 1,000 UNITS 25 MCG TAB PO SCH (08:46)
[2019-07-04] MEDS: CALCIUM 600MG + VIT D 400 IU TAB PO SCH (08:46)
[2019-07-04] MEDS: ENOXAPARIN INJ 40 MG/0.4 ML SYR SQ SCH (08:47)
[2019-07-04] MEDS: AMLODIPINE BESYLATE 5 MG TAB PO SCH (08:47)
[2019-07-04] MEDS ORDERED: PROCHLORPERAZINE MALEATE 5 MG TAB PO SCH (09:00)
[2019-07-04] MEDS ORDERED: INSULIN GLARGINE SOLOSTAR 100 UNITS/ML 3 ML PEN SC SCH (09:00)
--- NOTE | 2019-07-04 10:22 | XRay Report ---
XR chest 2V PA/lateral HISTORY: Shortness of breath. COMPARISON: Chest 07/01/2019. FINDINGS: No pneumothorax. Left subclavian Port-A-Cath terminates in the proximal SVC. There is a lar ge hiatus hernia, unchanged. The heart is normal in size. The upper lung zones are clear. Small bilat eral pleural effusions have developed in the interval. Anterior wedging within the mid thoracic spine vertebral bodies consistent with old compression deformities. No evidence for pulmonary edema. IMPRESSION: Interval development of small bilateral pleural effusions. No evidence for pulmonary edema. ACT 112: Negative or not required by law. Electronically signed by: Chung Briscoe M.D. 07/04/2019 10:21 AM
[2019-07-04] MEDS: LOPERAMIDE HCL 2 MG CAP PO PRN ×2 (10:26→11:29)
[2019-07-04] MEDS: PSYLLIUM 58.6% POWDER PACKET PO SCH (10:27)
[2019-07-04] MEDS ORDERED: FUROSEMIDE 20 MG in SYRINGE 0 ML IV ONE (10:45)
[2019-07-04] MEDS: NYSTATIN 30 ML, DEXAMETHASONE CONC 3.75 MG, DiphenhydrAMINE Syrup 300 MG, ORA-SWEET SYR... PO SCH ×3 (13:15→19:26)
--- NOTE | 2019-07-04 13:58 | Hospitalist Progress Note ---
Date of Service July 04, 2019 Assessment & Plan (1) Neutropenic fever: Resolved Patient with neutropenia on admission, now with leukocytosis likely secondary to neulasta administration previous to hospitalization CTs abdomen showing evidence of nonspecific colitis Continue Cipro and Flagyl IV Stool cultures pending, cdiff negative BC ngtd Consult oncology (2) SOB (shortness of breath): 07/03 EKG with nsr CXR showing new bilateral pleural effusions - dc fluids, 20 mg IV lasix x1, encourage I.S. (3) Diarrhea: C. diff negative Imodium prn, metamucil daily (4) Diabetes: Continue insulin pump, glycemic pharmacy consult (5) Hypothyroidism: continue levothyroxine (6) Hypertension: Continue lisinopril and amlodipine (7) Breast cancer: Consulted heme/onc (8) Colitis: As seen on CT Treatment as above (9) DVT prophylaxis: Enoxaparin Admission and Anticipated Discharge Date Admission Date: July 02, 2019 Subjective Ms. Franco was very sob this morning with nausea and heartburn. When I saw her bedside her heartburn had resolved, denied chest pressure but continued to feel sob with exertion. She also continues to have frequent bowel movements. ROS Constitutional: no chills, aches, sweats or fever Respiratory: no sob,cough, sputum, or wheezing Cardiac: no chest pain, palpitations, edema, orthopnea or lightheadedness GI: see HPI : no dysuria or hesitancy Extremities: no joint pain or weakness Skin: no rash All other systems reviewed and negative Physical Exam Physical Exam: General: no distress Eyes: normal inspection, PERLL Respiratory: chest non tender, clear to auscultation, normal breath sounds, no respiratory distress, no accessory muscle use Cardiac: regular rate and rhythm, no rub or gallop, no murmur, no edema, no jvd GI/: active bowel sounds, no abd pain or tenderness, soft, non distended Extremities: normal range of motion, normal strength, non tender Neuro/Psych: alert and oriented x 3, normal mood and affect Skin: normal color, dry Results & Data ([facility]) Vital Signs (Past 12 Hours) Vital Signs Temp Pulse Pulse Resp BP BP Pulse Ox 07/04/19 11:23 85 18 148/76 H 98 07/04/19 07:18 36.6 C 90 18 151/67 H 95 03/18/20 03:41 36.8 C 89 20 153/74 H 94 PG Care Time/CCT Total # of Minutes Spent Total Time Spent with Patient: Total time spent is greater than 50% in coordination of care (as documented) at patient's floor/unit and/or counseling patient: Coding Level of Care Code 87787 Subseq Hosp Care Lvl 3 Diagnoses Neutropenic fever D70.9; R50.81 SOB (shortness of breath) R06.02 Diarrhea R19.7 Diabetes E11.9 Hypothyroidism E03.9 Hypertension I10 Breast cancer C50.919 Colitis K52.9 DVT prophylaxis Z29.9
--- NOTE | 2019-07-04 14:33 | Pharmacy Report ---
Pharmacy Glycemic Short Note 2 - Date of Service July 04, 2019 - Glycemic Short BSG Results (Last 24 hours): 07/03/19 07/03/19 07/03/19 16:52 20:02 23:48 Glucose POC Glucose 139 H 156 H 242 H 07/03/19 07/04/19 07/04/19 23:50 03:27 05:22 Glucose 294 H POC Glucose 232 H 241 H 07/04/19 07/04/19 07/04/19 08:10 08:11 12:03 Glucose POC Glucose 314 H* 314 H* 239 H OUTPATIENT ANTIDIABETIC REGIMEN: * Novolog pump: * basal settings: * 4003-8911 0.5 units/hr * 2932-0135 0.625 units/hr * 7989-3726 0.750 units/hr * 2522-0969 0.55 units/hr * total ~15.7 units/day * Correction Factor: 55mg/dL/unit * Carb Ratio: 1 unit per 13gm CHO with breakfast, and 12gm CHO with all other meals * A1c = 10.4 % 05/18/19 ASSESSMENT: * Type 1 diabetic admitted with febrile neutropenia - continues on ciprofloxacin and metronidazole * BSGs elevated yesterday upon transition from insulin pump to SC (ranging 139- 314 since pump d/c) * Pt had concerns that her insulin supply was running low and that her pump supplies were not with her to refill. She was requesting basal/bolus SQ regimen per Pharmacy service * 12 units of Lantus given 2 hours prior to pump discontinuation * Transitioned patient to Lantus once daily utilizing a 20-25% reduction in dose in light of decreased PO intake and BSGs less than 100 * Fasting BSG this morning of 314 mg/dL - will increase Lantus to full daily basal dose supplied by insulin pump, tighten CF/CR parameters, and utilize 00,04 checks once again this evening * Magic mouthwash initiated today, which will provide minimal amounts of dexamethasone - will monitor PLAN FOR INPATIENT GLYCEMIC CONTROL: * Basal insulin - increase * Lantus 15 units SQ Q AM * Bolus insulin - tighten * NovoLog per scale ACHS and at 0000 + 0400 tonight (to screen for hyper- /hypoglycemia due to transition to SQ) * Goal Range: Low 110 mg/dL - High 140 mg/dL * Correction Factor: 45 mg/dL/unit (65mg/dL/unit overnight) * Nutritional / Prandial insulin per carb ratio of 1 unit per 12 grams CHO consumed (25 grams overnight) PLAN FOR DISCHARGE: * To be determined (discharge likely to be tomorrow or Tuesday)
[2019-07-04] MEDS ORDERED: PROMETHAZINE HCL 12.5 MG in SODIUM CHLORIDE 0.9% 50 ML IV PRN (14:34)
--- NOTE | 2019-07-04 16:06 | Electrocardiogram Report ---
Test Reason : Blood Pressure : / mmHG Vent. Rate : 082 BPM Atrial Rate : 082 BPM P-R Int : 156 ms QRS Dur : 068 ms QT Int : 362 ms P-R-T Axes : 054 031 039 degrees QTc Int : 422 ms Normal sinus rhythm Possible Anterior infarct (cited on or before 01-JUL-2019) Abnormal ECG When compared with ECG of 01-JUL-2019 21:10, Artifact is no longer present Confirmed by Luis Alcaraz ([id number]) on 07/04/2019 4:06:35 PM Referred By: Juan Oliveros Confirmed By:Luis Alcaraz
[2019-07-04] MEDS: MAGNESIUM OXIDE 400 MG TAB PO SCH (17:50)
[2019-07-04] MEDS: MULTIVITAMIN TAB PO SCH (17:50)
[2019-07-04] MEDS: ATORVASTATIN 10 MG TAB PO SCH (20:21)
[2019-07-04] MEDS: ASPIRIN 81 MG ECTAB PO SCH (20:22)
[2019-07-04] MEDS: FAMOTIDINE 20 MG TAB PO SCH (20:22)
[2019-07-05] MEDS: metroNIDAZOLE 500 MG/100 ML BAG IV SCH ×2 (02:06→10:56)
[2019-07-05] MEDS: NYSTATIN 30 ML, DEXAMETHASONE CONC 3.75 MG, DiphenhydrAMINE Syrup 300 MG, ORA-SWEET SYR... PO SCH ×4 (03:56→12:29)
[2019-07-05] MEDS: CIPROFLOXACIN / D5W 400 MG/200 ML BAG IV SCH (03:57)
[2019-07-05] MEDS: INSULIN ASPART 100 UNITS/ML 3 ML PEN SC SCH ×6 (04:02→20:44)
[2019-07-05] MEDS: HEPARIN 100 UNIT/ML 5ML FLUSH FLUSH PRN ×2 (05:59→12:05)
[2019-07-05] MEDS: LEVOTHYROXINE SODIUM 88 MCG TABLET PO SCH (06:00)
[2019-07-05 06:23] LABS: Hematocrit (blood only) 30.8 % (37-47); Mean Corpuscular Hemoglobin 28.4 pg (25-34); Mean Corpuscular Hgb Conc 32.5 g/dL (32-36); Mean Corpuscular Volume 87.5 fL (80-100); Mean Platelet Volume 10.2 fL (7.4-10.4); Platelet Count 272 K/uL (130-400); RDW Coefficient of Variation 13.8 % (11.5-14.5); RDW Standard Deviation 44.3 fL (36.4-46.3); Red Blood Count 3.52 M/uL (4.2-5.4); White Blood Count 18.99 K/uL (4.8-10.8)
[2019-07-05 06:55] LABS: Basophils # (auto) 0.05 K/uL (0-0.2); Basophils % (auto) 0.3 %; Dohle Bodies 1+; Echinocytes 1+; Eosinophils # (auto) 0.12 K/uL (0-0.5); Eosinophils % (auto) 0.6 %; Immature Granulocytes # (auto) 1.25 K/uL (0.00-0.02); Immature Granulocytes % (auto) 6.6 %; Lymphocytes # (auto) 1.48 K/uL (1.2-3.4); Lymphocytes % (auto) 7.8 %; Monocytes # (auto) 1.58 K/uL (0.11-0.59); Monocytes % (auto) 8.3 %; Neutrophils # (auto) 14.51 K/uL (1.4-6.5); Neutrophils % (auto) 76.4 %; Toxic Granulation Occasional
[2019-07-05 07:03] LABS: BUN Creatinine Ratio 8.2 (10-20); Calcium 7.9 mg/dl (8.5-10.1); Creatinine Clr Calc Pharmacy 43.7 ml/min; Est GFR (African American) 59.9; Est GFR (Non-African American) 51.7; Potassium 4.3 mmol/L (3.5-5.1)
[2019-07-05] MEDS: AMLODIPINE BESYLATE 5 MG TAB PO SCH (08:42)
[2019-07-05] MEDS: CALCIUM 600MG + VIT D 400 IU TAB PO SCH (08:42)
[2019-07-05] MEDS: PSYLLIUM 58.6% POWDER PACKET PO SCH (08:43)
[2019-07-05] MEDS: CHOLECALCIFEROL 1,000 UNITS 25 MCG TAB PO SCH (08:43)
[2019-07-05] MEDS: ENOXAPARIN INJ 40 MG/0.4 ML SYR SQ SCH (08:43)
[2019-07-05] MEDS: FAMOTIDINE 20 MG TAB PO SCH ×2 (08:43→20:24)
[2019-07-05] MEDS: INSULIN GLARGINE SOLOSTAR 100 UNITS/ML 3 ML PEN SC SCH (08:46)
[2019-07-05] MEDS: LOPERAMIDE HCL 2 MG CAP PO PRN ×3 (12:40→17:58)
--- NOTE | 2019-07-05 12:58 | Hospitalist Progress Note ---
Date of Service July 05, 2019 Assessment & Plan (1) Neutropenic fever: Resolved Patient with neutropenia on admission, now with leukocytosis likely secondary to neulasta administration previous to hospitalization CTs abdomen showing evidence of nonspecific colitis Continue Cipro and Flagyl but switch to po Stool cultures grew justen, cdiff negative BC ngtd Consulted oncology (2) SOB (shortness of breath): 07/03 EKG with nsr CXR showing new bilateral pleural effusions - dc'd fluids, 20 mg IV lasix x1, encourage I.S. Now resolved (3) Diarrhea: C. diff negative Imodium prn, metamucil daily Stool grew justen (4) Candidiasis: Stool grew justen, complaints of soreness in the mouth and tongue though no obvious exudate. Will dc magic mouthwash and treat with 7 days of fluconazole. As patient is immunocompromised, justen overgrowth could be contributing to her GI symptoms (5) Diabetes: Continue insulin pump, glycemic pharmacy consult (6) Hypothyroidism: continue levothyroxine (7) Hypertension: Continue lisinopril and amlodipine (8) Breast cancer: Consulted heme/onc (9) Colitis: As seen on CT Treatment as above (10) DVT prophylaxis: Enoxaparin Admission and Anticipated Discharge Date Admission Date: July 02, 2019 Subjective Ms. Franco is feeling better today. Diarrhea is resolving. No further sob. ROS Constitutional: no chills, aches, sweats or fever Respiratory: no sob,cough, sputum, or wheezing Cardiac: no chest pain, palpitations, edema, orthopnea or lightheadedness GI: no abdominal pain, nausea, vomiting, diarrhea or constipation : no dysuria or hesitancy Extremities: no joint pain or weakness Skin: no rash All other systems reviewed and negative Physical Exam Physical Exam: General: no distress Eyes: normal inspection, PERLL Respiratory: chest non tender, clear to auscultation, normal breath sounds, no respiratory distress, no accessory muscle use Cardiac: regular rate and rhythm, no rub or gallop, no murmur, no edema, no jvd GI/: active bowel sounds, no abd pain or tenderness, soft, non distended Extremities: normal range of motion, normal strength, non tender Neuro/Psych: alert and oriented x 3, normal mood and affect Skin: normal color, dry Results & Data ([facility]) Vital Signs (Past 12 Hours) Vital Signs Temp Pulse Resp BP Pulse Ox 07/05/19 11:40 36.9 C 81 20 140/84 93 07/05/19 07:25 36.8 C 85 20 145/73 H 94 07/05/19 03:09 36.6 C 87 20 149/78 H 96 PG Care Time/CCT Total # of Minutes Spent Total Time Spent with Patient: Total time spent is greater than 50% in coordination of care (as documented) at patient's floor/unit and/or counseling patient: Coding Level of Care Code 01560 Subseq Hosp Care Lvl 2 Diagnoses Neutropenic fever D70.9; R50.81 SOB (shortness of breath) R06.02 Diarrhea R19.7 Candidiasis B37.9 Diabetes E11.9 Hypothyroidism E03.9 Hypertension I10 Breast cancer C50.919 Colitis K52.9 DVT prophylaxis Z29.9
--- NOTE | 2019-07-05 13:49 | Pharmacy Report ---
Pharmacy Glycemic Short Note 2 - Date of Service July 05, 2019 - Glycemic Short BSG Results (Last 24 hours): 07/04/19 07/04/19 07/05/19 16:59 20:06 00:00 Glucose POC Glucose 199 H 197 H 189 H 07/05/19 07/05/19 07/05/19 04:01 05:13 07:38 Glucose 248 H POC Glucose 201 H 282 H OUTPATIENT ANTIDIABETIC REGIMEN: * Novolog pump: * basal settings: * 3571-2836 0.5 units/hr * 0512-6920 0.625 units/hr * 1714-6996 0.750 units/hr * 0653-4964 0.55 units/hr * total ~15.7 units/day * Correction Factor: 55mg/dL/unit * Carb Ratio: 1 unit per 13gm CHO with breakfast, and 12gm CHO with all other meals * A1c = 10.4 % 05/18/19 ASSESSMENT: * Type 1 diabetic admitted with febrile neutropenia - continues on ciprofloxacin and metronidazole * BSGs elevated yesterday upon transition from insulin pump to SC (ranging 139- 314 since pump d/c) * Pt had concerns that her insulin supply was running low and that her pump supplies were not with her to refill. She was requesting basal/bolus SQ regimen per Pharmacy service * BSGs yesterday elevated, ranging 189-314 mg/dL * Have been using conservative Novolog parameters based on outpatient insulin pump settings and noted hypoglycemia on admission * Will tighten parameters today PLAN FOR INPATIENT GLYCEMIC CONTROL: * Basal insulin - continue * Lantus 15 units SQ Q AM * Bolus insulin - tighten * NovoLog per scale ACHS * Goal Range: Low 110 mg/dL - High 140 mg/dL * Correction Factor: 30 mg/dL/unit * Nutritional / Prandial insulin per carb ratio of 1 unit per 10 grams CHO consumed PLAN FOR DISCHARGE: * Possible discharge tomorrow * Plan is to transition back to insulin pump tomorrow morning (will hold AM Lantus)
[2019-07-05] MEDS: FLUCONAZOLE 100 MG TAB PO SCH (14:04)
[2019-07-05] MEDS: MAGNESIUM OXIDE 400 MG TAB PO SCH (16:35)
[2019-07-05] MEDS: MULTIVITAMIN TAB PO SCH (16:35)
[2019-07-05] MEDS: metroNIDAZOLE 500 MG TAB PO SCH (20:23)
[2019-07-05] MEDS: CIPROFLOXACIN 500 MG TAB PO SCH (20:23)
[2019-07-05] MEDS: ATORVASTATIN 10 MG TAB PO SCH (20:24)
[2019-07-05] MEDS: ASPIRIN 81 MG ECTAB PO SCH (20:25)
[2019-07-05 23:29] VITALS: TEMP 98.1
[2019-07-06] MEDS ORDERED: INSULIN ASPART 100 UNITS/ML 3 ML PEN SC SCH (02:00)
[2019-07-06] MEDS: IBUPROFEN 200 MG TAB PO PRN (02:42)
[2019-07-06] MEDS: LEVOTHYROXINE SODIUM 88 MCG TABLET PO SCH (06:00)
[2019-07-06 07:32] VITALS: O2SAT 95
[2019-07-06 08:15] LABS: Hematocrit (blood only) 32.8 % (37-47); Hemoglobin 10.8 g/dL (12.0-16.0); Mean Corpuscular Hemoglobin 28.5 pg (25-34); Mean Corpuscular Hgb Conc 32.9 g/dL (32-36); Mean Corpuscular Volume 86.5 fL (80-100); Mean Platelet Volume 9.6 fL (7.4-10.4); Nucleated RBC # (auto) 0.02 K/uL (0-0); Nucleated RBC % (auto) 0.1 %; Platelet Count 276 K/uL (130-400); RDW Coefficient of Variation 13.8 % (11.5-14.5); RDW Standard Deviation 43.9 fL (36.4-46.3); Red Blood Count 3.79 M/uL (4.2-5.4); White Blood Count 18.61 K/uL (4.8-10.8)
[2019-07-06] MEDS: CALCIUM 600MG + VIT D 400 IU TAB PO SCH (08:15)
[2019-07-06] MEDS: AMLODIPINE BESYLATE 5 MG TAB PO SCH (08:15)
[2019-07-06] MEDS: FLUCONAZOLE 100 MG TAB PO SCH (08:16)
[2019-07-06] MEDS: metroNIDAZOLE 500 MG TAB PO SCH (08:16)
[2019-07-06] MEDS: CHOLECALCIFEROL 1,000 UNITS 25 MCG TAB PO SCH (08:16)
[2019-07-06] MEDS: CIPROFLOXACIN 500 MG TAB PO SCH (08:16)
[2019-07-06] MEDS: PSYLLIUM 58.6% POWDER PACKET PO SCH (08:17)
[2019-07-06] MEDS: FAMOTIDINE 20 MG TAB PO SCH (08:17)
[2019-07-06] MEDS: ENOXAPARIN INJ 40 MG/0.4 ML SYR SQ SCH (08:17)
[2019-07-06] MEDS ORDERED: INSULIN ASPART 100 UNITS/ML VIAL SC PRN (08:30)
[2019-07-06 08:42] LABS: Calcium 8.1 mg/dl (8.5-10.1); Creatinine Clr Calc Pharmacy 43.2 ml/min; Est GFR (African American) 59.2; Est GFR (Non-African American) 51.1; Potassium 3.9 mmol/L (3.5-5.1)
[2019-07-06] MEDS: INSULIN ASPART 100 UNITS/ML 3 ML PEN SC SCH (08:49)
[2019-07-06] MEDS: NovoLOG INSULIN PUMP SCH ×2 (08:52→12:23)
[2019-07-06 09:19] LABS: ALC (manual) 3.68 K/uL (1.2-3.4); ANC (manual) 13.16 K/uL (1.4-6.5); Basophils # (manual) 0.17 K/uL (0-0.2); Basophils % (manual) 0.9 %; Dohle Bodies 1+; Eosinophils # (manual) 0.17 K/uL (0-0.5); Eosinophils % (manual) 0.9 %; Lymphocytes # (manual) 3.68 K/uL (1.2-3.4); Lymphocytes % (manual) 19.8 %; Metamyelocytes # (manual) 0.32 K/uL (0-0); Metamyelocytes % (manual) 1.7 %; Monocytes # (manual) 0.63 K/uL (0.11-0.59); Monocytes % (manual) 3.4 %; Myelocytes # (manual) 0.17 K/uL (0-0); Myelocytes % (manual) 0.9 %; Neutrophils # (manual) 13.16 K/uL (1.4-6.5); Neutrophils % (manual) 70.7 %; Promyelocytes # (manual) 0.32 K/uL (0-0); Promyelocytes % (manual) 1.7 %
--- NOTE | 2019-07-06 11:56 | Discharge Summary ---
Date of Service July 06, 2019 Admission HPI Per Admitting Provider Colleen Franco is a 79 year old woman with a past medical history significant for HTN, HLD, DMI and recently diagnosed HER2/vu positive breast cancer who commenced chemotherapy with what appears to be herceptin, taxotere and carboplatin per heme onc notes. About tuesday of this week she started to feel off with abdominal pain and low grade temps. Eventually today she called oncology today and mentioned that she had a temperature of 100.7. She was told to come get evaluated in ED as she might have neutropenic fever. In ED patient has remained afebrile, with all vital signs WNL. she is still having the abdominal pain she rates at about a 6/10, and a sore throat she tells me has been present since she was intubated from her intubation when she received her port. She also tells me she has had little to no appetite and hasn't been drinking more than a few glasses of water per day since last tuesday. Labwork significant for neutropenia with ANC of .36. She also has an elevated creatinine of 1.21, low albumin and negative troponin. ECG showing what appears to be normal sinus rhythm but with artifact resembling a flutter will repeat. She lives at home, four children all live nearby. She is ambulating okay and has not had any falls. No other acute concerns given 2 L fluid in ED as well as zofran. Not requiring any pain medication at this time beyond tylenol. Principal Diagnosis Neutropenic fever, gastroenteritis Discharge Exam Constitutional WD/WN, vitals as above Respiratory normal respiratory effort, lungs clear to auscultation Cardiovascular RRR, no murmur, no edema Gastrointestinal (Abdomen) Inspection/Auscultation: abdomen normal to inspection and normal bowel sounds; abdomen not distended Percussion/Palpation: abdomen soft; abdomen nontender Musculoskeletal no cyanosis or clubbing, extremities motor strength 5/5 Skin maculopapular rash left armpit, right forearm, left neck Neurologic moves all extremities and awake Psychiatric A+Ox3, euthymic affect Discharge Data Allergies Allergy/AdvReac Type Severity Reaction Status Date / Time losartan AdvReac Severe potassium Verified 07/01/19 20:37 elevation Consultations 07/01/19 22:53 ED Decision to Admit Stat Ordered Studies 07/01/19 19:27 CT abd pelvis IV con only Stat Hospital Course (1) Neutropenic fever: Resolved Patient with neutropenia on admission, now with leukocytosis likely secondary to neulasta administration previous to hospitalization CTs abdomen showing evidence of nonspecific colitis Given Cipro and Flagyl x 5 days - will discontinue given rash that has been developing over the last few days and persistent diarrhea that may be caused by antibiotics. No positive cultures to support bacterial infection. Will also have patient follow up with her pcp early next week to reassess Stool cultures grew justen, cdiff negative BC ngtd Consulted oncology (2) SOB (shortness of breath): 07/03 EKG with nsr CXR showing new bilateral pleural effusions - dc'd fluids, 20 mg IV lasix x1, encourage I.S. Now resolved (3) Diarrhea: C. diff negative Imodium prn, metamucil daily Stool grew justen Abx as above Will hold asa and ibuprofen for abdominal pain and give Tylenol for pain and start ppi (4) Candidiasis: Stool grew justen, complaints of soreness in the mouth and tongue though no obvious exudate. Will give 14 days of fluconazole. As patient is immunocompromised, justen overgrowth could be contributing to her GI symptoms (5) Diabetes: Continue insulin pump, glycemic pharmacy consult, clinical trial educator (6) Hypothyroidism: continue levothyroxine (7) Hypertension: Continue lisinopril and amlodipine (8) Breast cancer: Consulted heme/onc (9) Colitis: As seen on CT Treatment as above (10) Lung nodule: On CT abdomen: There is a stable 2.5 mm left lower lobe pulmonary nodule. There is a stable 3 mm right lower lobe pulmonary nodule. Follow up with oncology/primary care (11) Pancreatic cyst: On CT abd/pelvis: Stable from previous, follow up with pcp/oncology (12) DVT prophylaxis: Enoxaparin Total Time Total Time Spent Total Time Spent (In Minutes): greater than 30 minutes Discharge Plan Discharge Items Patient Disposition: Home - Self-Care Reason For Visit: NEUTROPENIC FEVER Discharge Diagnosis: Neutropenic fever, gastroenteritis Activity: Resume your previous activity Non-emergency contact: Primary Care Provider and Oncologist Call non-emergency contact if: you have any medication questions, your symptoms worsen, your pain is not controlled and you have a fever Follow-up/Referrals: Salvador Kimble III, MD [Primary Care Provider] - (Follow up with Dr. Kimble early next week. Please call the office to make this appointment.) Diet: Carb Count or DM1 Addtl Attending Provider Instructions: (1) Neutropenic fever: Resolved CT abdomen showing evidence of nonspecific colitis Given Cipro and Flagyl x 5 days - will discontinue given rash that has been developing over the last few days and persistent diarrhea that may be caused by antibiotics. No positive cultures to support bacterial infection. Please follow up with your primary care provider early next week. (2) SOB (shortness of breath): Resolved EKG with showed a normal sinus rhythm CXR showing new bilateral pleural effusions - dc'd fluids, 20 mg IV lasix x1, encourage I.S. Now resolved (3) Diarrhea/abdominal pain: You can continue to take Imodium as needed, metamucil daily to bulk stool Stool cultures grew justen Discontinue antibiotics as above Start pantoprazole to reduce stomach acid. Please hold your aspirin for now to avoid stomach irritation. Avoid ibuprofen for pain and use acetaminophen instead (4) Candidiasis: Stool grew justen You will take 14 days total of fluconazole, an antifungal. (5) Diabetes: Continue insulin pump (6) Hypothyroidism: continue levothyroxine (7) Hypertension: Continue lisinopril and amlodipine (8) Breast cancer: Consulted heme/onc (9) Colitis: As seen on CT Treatment as above (10) Lung nodule: On CT abdomen: There is a stable 2.5 mm left lower lobe pulmonary nodule. There is a stable 3 mm right lower lobe pulmonary nodule. Follow up with oncology/primary care for monitoring (11) Pancreatic cyst: On CT abd/pelvis: Stable from previous, follow up with pcp/oncology for monitoring Pending Studies at Discharge: No Stand-Alone Forms: My [facility] [employer], Smoking Cessation Medications and DC Order Prescriptions: New fluconazole 100 mg Tablet 100 mg PO DAILY Qty: 12 RF: 0 pantoprazole 40 mg tablet,delayed release (DR/EC) 40 mg PO DAILY Qty: 30 RF: 1 Continued atorvastatin 10 mg tablet 10 mg PO HS Qty: 90 RF: 3 amlodipine 2.5 mg tablet 2.5 mg PO QAM RF: 0 levothyroxine 88 mcg tablet 88 mcg PO QAM Qty: 90 RF: 0 multivitamin [Daily Multi-Vitamin] tablet 1 tab PO 1700 RF: 0 cholecalciferol (vitamin D3) 5,000 unit capsule 5,000 units PO QAM RF: 0 Lacto.acidophilus-Bif.animalis 31 billion cell capsule 2 cap PO BID RF: 0 calcium carbonate-vitamin D3 600 mg(1,500mg) -800 unit tablet 2 tab PO QAM RF: 0 magnesium oxide 400 mg magnesium Tablet 400 mg PO 1700 RF: 0 lisinopril 2.5 mg tablet 2.5 mg PO QAM RF: 0 insulin aspart U-100 [Novolog U-100 Insulin aspart] 100 unit/mL solution See Rx Instructions .ROUTE .COMPLEX RF: 0 Discontinued aspirin [Aspirin Low Dose] 81 mg Tablet,Delayed Release (Dr/Ec) 81 mg PO QPM RF: 0 ibuprofen 200 mg Tablet 400 mg PO Q6H PRN (Reason: Pain) RF: 0 Discharge Orders: Discharge Order (Routine); Ordered 07/06/19 Ordered By: Jeannie Frederick Admission Data Admit Date/Time: 07/02/19 00:51 Attending Provider: Tip Long Admit Provider: Ponce Chowdhury Primary Care Provider: Salvador Kimble III Other Providers: Tip Long Other Interventions: Discharge Summary Assessment (RN) Last Done: 07/06/19 12:39 DC Date/Time DO NOT enter until pt leaves facility: 07/06/19 13:20 Supervising Physician Co-Signing Physician Notes I supervised Jeannie Frederick NP on this patient's care. I examined the patient today independently of her. I discussed the plan of care with her with the plan being as written in her note except for any following changes/exceptions: None. The patient reports some abdominal pain today. Given her CT a/p was fairly non- specific and she is no longer neutropenic, we will stop oral abx for her colitis. She has received 5 days which seems adequate. However, her Justen will require a longer treatment duration, and she was sent with a total of 14-days. Additionally, we stopped her aspirin for now and started a PPI for possible gastritis. She also had a rash on her armpit and more lightly across her chest. Only one small area was itching. Possibly this is a drug reaction, but it preceded any of our antibiotics or the fluconazole. As such, I told her to keep it moisturized with a hypo-allergenic lotion and to use Benadryl cream. She is being fitted for a continuous glucose monitor as well which the clinical trial educator was assisting her with. Coding Level of Care Code D/C Day Management >30 mins Diagnoses Neutropenic fever D70.9; R50.81 SOB (shortness of breath) R06.02 Diarrhea R19.7 Candidiasis B37.9 Diabetes E11.9 Hypothyroidism E03.9 Hypertension I10 Breast cancer C50.919 Colitis K52.9 Lung nodule R91.1 Pancreatic cyst K86.2 DVT prophylaxis Z29.9
[2019-07-06 12:42] VITALS: BP 151/67; PULSE 90
== END 2019-07-06 13:20 | disposition home or self-care (01) | DRG 810 ==
LOC: ED 19:05 → 4W 07-02 00:51 → SUATTDRO 07-02 00:51 → 4W 07-02 02:27

== ENCOUNTER 2019-12-01 02:23 | Inpatient (IN) ==
--- NOTE | 2019-12-01 03:08 | Emergency Department Note ---
Impression & Plan Acute pancreatitis, Anemia, Hyperglycemia due to diabetes mellitus ED Provider Note NAME: LARRY GUERRERO AGE: 79 SEX: F ARRIVES VIA: Ambulance INFORMANT: Patient ED PROVIDER(S): Saundra Luque DO CHIEF COMPLAINT: Upper abdominal pain PLAN: Disposition: Admitted to the [facility] Condition: Stable MEDICAL DECISION MAKING: This is a 79-year-old female patient with a history of breast cancer who presents to the emergency department with a fairly sudden onset of upper abdominal pain, nausea, and vomiting. The patient has significant hyperglycemia related to her diabetes. She has had a hemoglobin that is trending downward to a level of 8.[address] scan shows evidence of pancreatitis and was concerning for cholecystitis. She went for ultrasound which showed measurements in the upper limits of normal. I discussed the case with Tonia aly and they will evaluate for further management. Triage Nursing notes reviewed and agree them. Prior medical records reviewed Vital Signs: reviewed and remarkable for hypertension Differential diagnosis: Cholecystitis, pancreatitis, small bowel obstruction, colitis, diverticulitis, perforated viscus ER treatment provided: Port access, normal saline IV, IV fentanyl Diagnostics interpreted by me: ECG: Normal sinus rhythm at 82 with a poor baseline. No obvious ST segment elevation or signs of ischemia. No ectopy Cardiac Monitoring: Normal sinus rhythm at 95. Laboratory studies: See below Imaging studies: As per stat rad CT abdomen and pelvis with contrast: Large hiatal hernia. Distended gallbladder with heterogeneous increased density and evidence of wall thickening. This may represent acute cholecystitis. Consider further evaluation with ultrasound. Mild ill-definition of the fat surrounding the neck and head of the gallbladder. Correlate with labs for possible pancreatitis Ultrasound gallbladder: The gallbladder is completely filled with heterogeneous nonvascular material. This likely represents complex sludge. No shadowing stones are evident. There is gallbladder wall thickening at 4 mm. There is no surrounding gallbladder fluid. The common bile duct measures 6 to 7 mm which is upper limits of normal for patient of this age. The right kidney and liver are within normal limits no abnormal fluid is seen HPI: 79/F arrives for evaluation of abdominal pain. The patient awoke at 11 PM complaining of 10/10 abdominal pain. She had been nauseated earlier in the evening after eating dinner but thought it may have been what she had eaten. She tried to lay down to go to sleep but awoke with severe pain. EMS was called and she described the pain as being in her upper abdomen and associated with s ome distention. EMS gave her Toradol and Zofran which gave her minimal relief. Patient states that around midnight, she did have a small bowel movement of soft stool but then had some associated nausea and then vomited a small amount. ROS: See above HPI for pertinent positives & negatives. A total of 10 systems reviewed and were otherwise negative. PAST MEDICAL HISTORY:See Below PAST SURGICAL HISTORY:See Below FAMILY HISTORY:See Below SOCIAL HISTORY:See Below HOME MEDICATIONS:See list ALLERGIES:See list VITALS:See Below PHYSICAL EXAMINATION: HEENT: Head - normocephalic and atraumatic Pupils are equal, round, and reactive to light. Extraocular eye muscles are intact, and sclera are anicteric. Nose - moist nasal mucosa without discharge. Mouth - moist buccal mucosa. Oropharynx is nonerythematous and there is no tonsillar exudate or edema noted. Neck: Supple; no thyromegaly or cervical lymphadenopathy Chest: Port in left chest. Heart: Regular rate and rhythm. There is a normal S1 and S2 with no murmurs, clicks, or gallops appreciated. Lungs: Clear to auscultation bilaterally with no wheezes, rales, or rhonchi. Abdomen: Soft, mildly distended, moderate pain to palpation in the epigastrium and right upper quadrant. Nondistended, with good bowel sounds. There are no palpable pulsatile masses or hepatosplenomegaly. There is no guarding, rigidity, or rebound noted. Extremities: No evidence of cyanosis, clubbing, or edema. There are easily palpable peripheral pulses. Skin: Pale, warm and dry with good turgor and no rashes. ED COURSE: Times/Reassessments: 0240: The patient was evaluated in A4. A complete history and physical was performed. Her port was accessed and labs were drawn as above. An order was placed for continuous cardiac monitoring. A twelve-lead EKG was obtained as described above. She will go for CT scan of her abdomen/pelvis. 0405: The patient was feeling somewhat better at this time. She will go for ultrasound of the right upper quadrant. 0530: She complained of a headache and was given IV fentanyl. 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 Fingernail avulsion, partial GERD (gastroesophageal reflux disease) diet controlled Shane's thyroiditis Hyperlipidemia Hypertension Hypothyroidism Osteoarthritis Personal history of Helicobacter infection Subungual hematoma Tendonitis Urinary incontinence Surgical History (Updated 07/26/19 @ 14:42 by Raiza Gibbons) History of breast biopsy right History of carpal tunnel release bilateral History of cataract surgery bilateral History of colonoscopy Hx of tonsillectomy S/P adenoidectomy S/P extracapsular cataract extraction S/P thyroid biopsy Family History (Updated 07/26/19 @ 14:45 by Raiza Gibbons) Sister Breast cancer Father Cancer Brother Diabetes Brother Diabetes Other No family history of adverse response to anesthesia Denies family history of Ovarian cancer Colorectal cancer Social History (Updated 08/17/19 @ 11:56 by Jenni Ramirez) Smoking Status: Never smoker Second Hand Exposure: Yes (hx as a child); Hx Alcohol Use: No Hx Substance Use: No Preferred Language: Polish Communication Ability: Effective 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 current occupational status: retired Other Information That Helps Us Care for You: No Feels Safe at Home: Yes Safety Concerns: Feels Safe At This Time Physical Activity Frequency: Other Physical Activity Frequency Comment: regularly Allergies Allergies Allergy/AdvReac Type Severity Reaction Status Date / Time lisinopril AdvReac Intermediate ELEVATES Verified 12/01/19 03:16 POTASSIUM LEVELS losartan AdvReac Intermediate ELEVATES Verified 12/01/19 03:16 POTASSIUM LEVELS. Home Meds Home Medications Medication Instructions Recorded Confirmed magnesium oxide 400 mg PO QDD 05/17/19 12/01/19 calcium carbonate-vitamin D3 600 2 tab PO QAM tab 06/19/19 12/01/19 mg (1,500 mg)-800 unit tablet insulin aspart U-100 100 unit/mL 0 unit CONTINUOUS SUBCUTANEOUS 06/19/19 12/01/19 subcutaneous solution INFUSION DIRECTED Lactobacillus 1 cap PO BID cap 09/17/19 12/01/19 acidophilus-Bifidobac.animalis 31 billion cell capsule pantoprazole 40 mg tablet,delayed 40 mg PO DAILY PRN tab 09/17/19 12/01/19 release Lasix 20 mg PO [id number] 12/01/19 12/01/19 rivaroxaban [Xarelto] 20 mg PO DAILY 12/01/19 12/01/19 Previous Rx's Medication Instructions Recorded atorvastatin 10 mg tablet 10 mg PO HS #90 tab 06/13/19 levothyroxine 100 mcg tablet 100 mcg PO DAILY #90 tab 11/12/19 Results & Data (ED) Vital Signs Vital Signs - 24 hr 12/01/19 02:31 12/01/19 02:33 12/01/19 02:40 Temperature Temperature Source Pulse Rate 80 82 81 Pulse Rate from SpO2 Sensor 80 82 78 Respiratory Rate 24 Blood Pressure 111/74 Blood Pressure Mean 98 Pulse Oximetry 99 100 94 Oxygen Delivery Method Sepsis Recent Fever Within 48 Hours Sepsis New/Unexplained Change in Mental Status Sepsis Action Taken by Nursing 12/01/19 02:41 12/01/19 02:50 12/01/19 03:00 Temperature 36.6 C Temperature Source Oral Pulse Rate 97 H 83 89 Pulse Rate from SpO2 Sensor 85 87 Respiratory Rate 20 15 Blood Pressure 111/74 177/87 H Blood Pressure Mean 86 147 Pulse Oximetry 99 98 97 Oxygen Delivery Method Room Air Sepsis Recent Fever Within 48 Hours No Sepsis New/Unexplained Change in Mental Status N/A Sepsis Action Taken by Nursing No Action Required 12/01/19 03:01 12/01/19 03:10 12/01/19 03:20 Temperature Temperature Source Pulse Rate 88 90 88 Pulse Rate from SpO2 Sensor 88 90 90 Respiratory Rate 21 16 16 Blood Pressure Blood Pressure Mean Pulse Oximetry 95 96 96 Oxygen Delivery Method Room Air Sepsis Recent Fever Within 48 Hours Sepsis New/Unexplained Change in Mental Status Sepsis Action Taken by Nursing 12/01/19 03:30 12/01/19 03:31 12/01/19 03:40 Temperature Temperature Source Pulse Rate 92 H 89 89 Pulse Rate from SpO2 Sensor 91 H 90 90 Respiratory Rate 20 19 Blood Pressure 172/65 H Blood Pressure Mean 123 Pulse Oximetry 98 98 98 Oxygen Delivery Method Sepsis Recent Fever Within 48 Hours Sepsis New/Unexplained Change in Mental Status Sepsis Action Taken by Nursing 12/01/19 03:50 12/01/19 04:00 12/01/19 04:01 Temperature Temperature Source Pulse Rate 87 88 91 H Pulse Rate from SpO2 Sensor 88 90 92 H Respiratory Rate 22 19 21 Blood Pressure 167/73 H Blood Pressure Mean 139 Pulse Oximetry 98 97 98 Oxygen Delivery Method Sepsis Recent Fever Within 48 Hours Sepsis New/Unexplained Change in Mental Status Sepsis Action Taken by Nursing 12/01/19 04:10 12/01/19 04:20 12/01/19 04:42 Temperature Temperature Source Pulse Rate 107 H 91 H 100 H Pulse Rate from SpO2 Sensor 92 H Respiratory Rate 19 21 Blood Pressure Blood Pressure Mean Pulse Oximetry 98 Oxygen Delivery Method Sepsis Recent Fever Within 48 Hours Sepsis New/Unexplained Change in Mental Status Sepsis Action Taken by Nursing 12/01/19 04:50 12/01/19 05:00 12/01/19 05:01 Temperature Temperature Source Pulse Rate 101 H 94 H 94 H Pulse Rate from SpO2 Sensor 95 H 94 H Respiratory Rate 24 15 18 Blood Pressure 154/72 H Blood Pressure Mean 117 Pulse Oximetry 98 95 Oxygen Delivery Method Sepsis Recent Fever Within 48 Hours Sepsis New/Unexplained Change in Mental Status Sepsis Action Taken by Nursing 12/01/19 05:10 12/01/19 05:20 12/01/19 05:30 Temperature Temperature Source Pulse Rate 97 H 97 H Pulse Rate from SpO2 Sensor 96 H 97 H 105 H Respiratory Rate 21 18 19 Blood Pressure 175/123 H Blood Pressure Mean 136 Pulse Oximetry 95 96 97 Oxygen Delivery Method Sepsis Recent Fever Within 48 Hours Sepsis New/Unexplained Change in Mental Status Sepsis Action Taken by Nursing 12/01/19 05:31 12/01/19 06:04 12/01/19 06:30 Temperature Temperature Source Pulse Rate 104 H 98 H 99 H Pulse Rate from SpO2 Sensor 94 H 99 H Respiratory Rate 24 12 20 Blood Pressure 156/80 H Blood Pressure Mean 106 Pulse Oximetry 97 97 Oxygen Delivery Method Sepsis Recent Fever Within 48 Hours Sepsis New/Unexplained Change in Mental Status Sepsis Action Taken by Nursing 12/01/19 06:31 12/01/19 07:00 12/01/19 07:01 Temperature Temperature Source Pulse Rate 101 H 98 H 104 H Pulse Rate from SpO2 Sensor 101 H Respiratory Rate 21 17 22 Blood Pressure 167/80 H Blood Pressure Mean 101 Pulse Oximetry 97 98 Oxygen Delivery Method Sepsis Recent Fever Within 48 Hours Sepsis New/Unexplained Change in Mental Status Sepsis Action Taken by Nursing 12/01/19 07:30 12/01/19 07:31 12/01/19 08:00 Temperature Temperature Source Pulse Rate 101 H 100 H 96 H Pulse Rate from SpO2 Sensor Respiratory Rate 19 17 19 Blood Pressure 162/86 H 154/95 H Blood Pressure Mean 109 117 Pulse Oximetry 97 98 Oxygen Delivery Method Sepsis Recent Fever Within 48 Hours Sepsis New/Unexplained Change in Mental Status Sepsis Action Taken by Nursing 12/01/19 08:01 Temperature Temperature Source Pulse Rate 118 H Pulse Rate from SpO2 Sensor Respiratory Rate 19 Blood Pressure Blood Pressure Mean Pulse Oximetry Oxygen Delivery Method Sepsis Recent Fever Within 48 Hours Sepsis New/Unexplained Change in Mental Status Sepsis Action Taken by Nursing Laboratory Data Result diagrams: 12/01/19 10:49 12/01/19 04:53 Lab Results 12/01/19 12/01/19 12/01/19 Range/Units 03:39 03:39 04:53 WBC 10.52 (4.8-10.8) K/uL RBC 3.17 L (4.2-5.4) M/uL Hgb 8.4 L (12.0-16.0) g/dL Hct 27.2 L (37-47) % MCV 85.8 (80-100) fL MCH 26.5 (25-34) pg MCHC 30.9 L (32-36) g/dL RDW Std Deviation 48.7 H (36.4-46.3) fL RDW Coeff of Mikayla 15.4 H (11.5-14.5) % Plt Count 320 (130-400) K/uL MPV 9.3 (7.4-10.4) fL Immature Gran % (Auto) 0.2 % Neut % (Auto) 83.9 % Lymph % (Auto) 7.8 % Davison % (Auto) 7.2 % Eos % (Auto) 0.9 % Baso % (Auto) 0.0 % Neut # (Auto) 8.83 H (1.4-6.5) K/uL Lymph # (Auto) 0.82 L (1.2-3.4) K/uL Davison # (Auto) 0.76 H (0.11-0.59) K/uL Eos # (Auto) 0.09 (0-0.5) K/uL Baso # (Auto) 0.00 (0-0.2) K/uL Immature Gran # (Auto) 0.02 (0.00-0.02) K/uL Sodium 141 (136-145) mmol/L Potassium 4.7 (3.5-5.1) mmol/L Chloride 112 H (98-107) mmol/L Carbon Dioxide 25 (21-32) mmol/L Anion Gap 4.0 (3-11) BUN 19 H (7-18) mg/dl Creatinine 0.91 (0.6-1.2) mg/dl Est Cr Clr Drug Dosing 43.9 ml/min Est GFR ( Amer) 69.5 Est GFR (Non-Af Amer) 60.0 BUN/Creatinine Ratio 21.3 H (10-20) Glucose 303 H* (70-99) mg/dl Calcium 7.6 L (8.5-10.1) mg/dl Total Bilirubin 0.5 (0.2-1) mg/dl AST 1394 H (15-37) U/L ALT 303 H (12-78) U/L Alkaline Phosphatase 224 H (45-117) U/L Total Protein 5.4 L (6.4-8.2) gm/dl Albumin 2.4 L (3.4-5.0) gm/dl Globulin 3.0 (2.5-4.0) gm/dl Albumin/Globulin Ratio 0.8 L (0.9-2) Lipase 6864 H (73-393) U/L Beta-Hydroxybutyric Acd (0.2-2.81) mg/dl Specimen Hemolysis Urine Color Urine Appearance (Clear) Urine pH (4.5-7.5) Ur Specific [place] (1.000-1.030) Urine Protein (Negative) Urine Glucose (UA) (Negative) Urine Ketones (Negative) Urine Blood (Negative) Urine Nitrite (Negative) Urine Bilirubin (Negative) Urine Urobilinogen (Negative) Ur Leukocyte Esterase (Negative) Urine RBC (0-4) /hpf Urine WBC (0-5) /hpf Ur Epithelial Cells (0-5) /lpf Urine Bacteria (Negative) 12/01/19 12/01/19 Range/Units 05:32 06:15 WBC (4.8-10.8) K/uL RBC (4.2-5.4) M/uL Hgb (12.0-16.0) g/dL Hct (37-47) % MCV (80-100) fL MCH (25-34) pg MCHC (32-36) g/dL RDW Std Deviation (36.4-46.3) fL RDW Coeff of Mikayla (11.5-14.5) % Plt Count (130-400) K/uL MPV (7.4-10.4) fL Immature Gran % (Auto) % Neut % (Auto) % Lymph % (Auto) % Davison % (Auto) % Eos % (Auto) % Baso % (Auto) % Neut # (Auto) (1.4-6.5) K/uL Lymph # (Auto) (1.2-3.4) K/uL Davison # (Auto) (0.11-0.59) K/uL Eos # (Auto) (0-0.5) K/uL Baso # (Auto) (0-0.2) K/uL Immature Gran # (Auto) (0.00-0.02) K/uL Sodium (136-145) mmol/L Potassium (3.5-5.1) mmol/L Chloride (98-107) mmol/L Carbon Dioxide (21-32) mmol/L Anion Gap (3-11) BUN (7-18) mg/dl Creatinine (0.6-1.2) mg/dl Est Cr Clr Drug Dosing ml/min Est GFR ( Amer) Est GFR (Non-Af Amer) BUN/Creatinine Ratio (10-20) Glucose (70-99) mg/dl Calcium (8.5-10.1) mg/dl Total Bilirubin (0.2-1) mg/dl AST (15-37) U/L ALT (12-78) U/L Alkaline Phosphatase (45-117) U/L Total Protein (6.4-8.2) gm/dl Albumin (3.4-5.0) gm/dl Globulin (2.5-4.0) gm/dl Albumin/Globulin Ratio (0.9-2) Lipase (73-393) U/L Beta-Hydroxybutyric Acd 4.22 H (0.2-2.81) mg/dl Specimen Hemolysis Urine Color Yellow Urine Appearance Clear (Clear) Urine pH 7.5 (4.5-7.5) Ur Specific [place] 1.015 (1.000-1.030) Urine Protein Negative (Negative) Urine Glucose (UA) 3+ H (Negative) Urine Ketones Negative (Negative) Urine Blood 1+ H (Negative) Urine Nitrite Positive A (Negative) Urine Bilirubin Negative (Negative) Urine Urobilinogen Negative (Negative) Ur Leukocyte Esterase 1+ H (Negative) Urine RBC 0-4 (0-4) /hpf Urine WBC >30 H (0-5) /hpf Ur Epithelial Cells 5-10 H (0-5) /lpf Urine Bacteria 2+ H (Negative) Administered Medications Piperacillin Sod/Tazobactam (Sod 3.375 gm/ Dextrose) 115 mls @ 28.75 mls/hr IV Q8H [facility]; Protocol Stop: 12/11/19 15:59 Last Admin: 12/01/19 23:32 Dose: 28.8 mls/hr Documented by: [id number] Infusion: 12/01/19 20:43 Dose: 0 mls/hr Documented by: [id number] Admin: 12/01/19 16:43 Dose: 28.8 mls/hr Documented by: [id number] Sodium Chloride (Nss 1000ml) 1,000 mls @ 200 mls/hr IV .Q5H JODI Stop: 12/31/19 16:59 Last Admin: 12/01/19 22:02 Dose: 200 mls/hr Documented by: [id number] Infusion: 12/01/19 22:02 Dose: 200 mls/hr Documented by: [id number] Admin: 12/01/19 17:02 Dose: 200 mls/hr Documented by: [id number] Insulin Aspart (Insulin Aspart 100 Units/Ml 3 Ml Pen) 0 units SC Q6 JODI Stop: 12/31/19 19:29 Last Admin: 12/02/19 00:09 Dose: Not Given Documented by: [id number] Cosigned by: [id number] Admin: 12/01/19 19:49 Dose: 2 units Documented by: [id number] Cosigned by: [id number] Ondansetron HCl (Ondansetron Inj 2 Mg/Ml 2 Ml Vial) 4 mg IV Q4H PRN PRN Reason: Nausea And Vomiting Stop: 12/31/19 09:31 Last Admin: 12/02/19 01:05 Dose: 4 mg Documented by: [id number] Discontinued Medications Fentanyl Citrate (Fentanyl Citrate 100 Mcg/2 Ml Vial) 50 mcg IV NOW STA Stop: 12/01/19 06:56 Last Admin: 12/01/19 07:07 Dose: 50 mcg Documented by: [id number] Hydromorphone HCl (Hydromorphone Inj 0.5 Mg/0.5 Ml Syr) 0.5 mg IV NOW STA Stop: 12/01/19 09:33 Last Admin: 12/01/19 10:12 Dose: 0.5 mg Documented by: [id number] Sodium Chloride (Nss) 500 mls @ 125 mls/hr IV .Q4H JODI Stop: 12/31/19 06:59 Last Infusion: 12/01/19 09:58 Dose: 0 mls/hr Documented by: [id number] Admin: 12/01/19 07:06 Dose: 125 mls/hr Documented by: [id number] Lactated Ringer's (Lr) 1,000 mls @ 200 mls/hr IV .Q5H JODI Stop: 12/31/19 09:59 Last Infusion: 12/01/19 17:01 Dose: 0 mls/hr Documented by: [id number] Infusion: 12/01/19 16:43 Dose: 0 mls/hr Documented by: [id number] Admin: 12/01/19 15:37 Dose: 200 mls/hr Documented by: [id number] Infusion: 12/01/19 15:12 Dose: 200 mls/hr Documented by: [id number] Admin: 12/01/19 10:12 Dose: 200 mls/hr Documented by: [id number] Piperacillin Sod/Tazobactam (Sod 3.375 gm/ Dextrose) 115 mls @ 230 mls/hr IV NOW ONE; Protocol Stop: 12/01/19 10:29 Last Infusion: 12/01/19 12:46 Dose: 0 mls/hr Documented by: [id number] Admin: 12/01/19 11:31 Dose: 230 mls/hr Documented by: [id number] Insulin Aspart (Novolog Insulin Pump) 1 ea N/A ACHS JODI; Protocol Stop: 12/31/19 11:29 Last Admin: 12/01/19 12:45 Dose: Not Given Documented by: [id number] Insulin Aspart (Novolog Insulin Pump) 1 ea N/A Q6H JODI; Protocol Stop: 12/01/19 19:00 Last Admin: 12/01/19 18:03 Dose: 1 ea Documented by: [id number] Insulin Glargine (Insulin Glargine Solostar 100 Units/Ml 3 Ml Pen) 12 units SC ONE ONE Stop: 12/01/19 19:01 Last Admin: 12/01/19 19:49 Dose: 12 units Documented by: [id number] Cosigned by: [id number] Ioversol (Ioversol 100ml) 93 ml IV ONCE ONE Stop: 12/01/19 04:44 Last Admin: 12/01/19 04:44 Dose: 93 ml Documented by: [id number] Magnesium Oxide (Magnesium Oxide 400 Mg Tab) 400 mg PO QDD JODI Stop: 12/31/19 16:29 Last Admin: 12/01/19 16:49 Dose: 400 mg Documented by: [id number] Discharge Plan Visit Data Chief Complaint: Abdominal Pain Stated Complaint: ABDOMINAL PAIN ED Provider: Saundra Luque Discharge Problem: Acute pancreatitis, Anemia, Hyperglycemia due to diabetes mellitus Patient Disposition: Admitted As Inpatient Discharge Instructions Interventions: ED Discharge Assessment Last Done: 12/01/19 09:02 Discharge Problem: Acute pancreatitis Qualifiers: Pancreatitis type: unspecified pancreatitis type Acute pancreatitis complication: unspecified Qualified Code(s): K85.90 - Acute pancreatitis without necrosis or infection, unspecified Anemia Qualifiers: Anemia type: unspecified type Qualified Code(s): D64.9 - Anemia, unspecified
[2019-12-01 03:47] LABS: Eosinophils # (auto) 0.09 K/uL (0-0.5); Eosinophils % (auto) 0.9 %; Hematocrit (blood only) 27.2 % (37-47); Hemoglobin 8.4 g/dL (12.0-16.0); Immature Granulocytes # (auto) 0.02 K/uL (0.00-0.02); Immature Granulocytes % (auto) 0.2 %; Lymphocytes # (auto) 0.82 K/uL (1.2-3.4); Lymphocytes % (auto) 7.8 %; Mean Corpuscular Hemoglobin 26.5 pg (25-34); Mean Corpuscular Hgb Conc 30.9 g/dL (32-36); Mean Corpuscular Volume 85.8 fL (80-100); Mean Platelet Volume 9.3 fL (7.4-10.4); Monocytes # (auto) 0.76 K/uL (0.11-0.59); Monocytes % (auto) 7.2 %; Neutrophils # (auto) 8.83 K/uL (1.4-6.5); Neutrophils % (auto) 83.9 %; Platelet Count 320 K/uL (130-400); RDW Coefficient of Variation 15.4 % (11.5-14.5); RDW Standard Deviation 48.7 fL (36.4-46.3); Red Blood Count 3.17 M/uL (4.2-5.4); White Blood Count 10.52 K/uL (4.8-10.8)
[2019-12-01 04:21] LABS: Albumin Globulin Ratio 0.8 (0.9-2); Albumin Level 2.4 gm/dl (3.4-5.0); BUN Creatinine Ratio 21.3 (10-20); Bilirubin,Total 0.5 mg/dl (0.2-1); Calcium 7.6 mg/dl (8.5-10.1); Creatinine Clr Calc Pharmacy 43.9 ml/min; Est GFR (African American) 69.5; Total Protein 5.4 gm/dl (6.4-8.2)
[2019-12-01] MEDS ORDERED: IOVERSOL 100ml IV ONE (04:43)
[2019-12-01 05:18] LABS: Potassium 4.7 mmol/L (3.5-5.1)
[2019-12-01 05:38] LABS: Appearance Urine Clear (Clear); Bilirubin Urine Negative (Negative); Blood Urine 1+ (Negative); Color Urine Yellow; Glucose Urine UA 3+ (Negative); Ketones Urine Negative (Negative); Leukocyte Esterase Urine 1+ (Negative); Nitrite Urine Positive (Negative); Protein Urine Negative (Negative); Specific Gravity Urine 1.015 (1.000-1.030); Urobilinogen Urine Negative (Negative); pH Urine 7.5 (4.5-7.5)
[2019-12-01 06:32] LABS: Bacteria Urine 2+ (Negative); RBC Urine 0-4 /hpf (0-4); WBC Urine >30 /hpf (0-5)
[2019-12-01] MEDS ORDERED: fentaNYL citrate 100 MCG/2 ML VIAL IV STA (06:55)
[2019-12-01] MEDS ORDERED: SODIUM CHLORIDE 0.9% 500 ML IV SCH (07:00)
--- NOTE | 2019-12-01 07:57 | CT Scan Report ---
ABDOMEN AND PELVIS CT WITH IV CONTRAST CT DOSE: 272.73 mGy.cm HISTORY: Acute upper abdominal pain with history of breast cancer eval upper abd. pain; h/o breast C A TECHNIQUE: Multiaxial CT images of the abdomen and pelvis were performed following the IV administrat ion of 93 cc of Optiray 320, A dose lowering technique was utilized adhering to the principles of [place]. COMPARISON STUDY: Right upper quadrant abdominal ultrasound of same day, CT abdomen and pelvis 020 FINDINGS: There are 2 4 mm solid nodules of the right lower lobe. There are a few scattered solid nodules of th e left lower lobe also present measuring up to 3 mm. These appear unchanged from comparison. No pneum atosis or pneumoperitoneum. Imaged inferior cardiac chambers are mildly enlarged. Splenic artery calcifications. The spleen and adrenal glands are unremarkable. Distended gallbladder is filled with complex material demonstrates wall thickening with pericholecystic fluid. No appreciab le biliary ductal dilation. Patency of the hepatic and portal veins. Unremarkable liver. Cystic pancr eatic lesions are redemonstrated measuring up to approximately 8 mm suggestive of probable side branc h IPMN's. Heterogeneous appearance of the pancreas with moderate atrophy. There is equivocal strandin g adjacent to the pancreatic head. Normal appearance of the kidneys. Mild wall thickening of the urinary bladder. Vascular calcification s of the uterus. No aortic aneurysm or adenopathy. Large hiatal hernia. No bowel obstruction or bowel wall thickening. Mild fecal retention. The appendi x is not definitively seen. Mild generalized body wall edema. Degenerative changes of the spine, pelv is and hips. IMPRESSION: 1. Distended gallbladder filled with complex debris/sludge. Additionally, there is gallbladder wall t hickening and pericholecystic fluid suspicious for acute cholecystitis. Correlate with right upper qu adrant abdominal ultrasound of same day. 2. No biliary ductal dilation. 3. Equivocal stranding adjacent to the pancreatic head is likely reactive. Acute pancreatitis conside red less likely. 4. Additional findings as above. ACT 112: Negative or not required by law. The above report was generated using voice recognition software. It may contain grammatical, syntax o r spelling errors. Electronically signed by: Jeffrey Palacio M.D. 12/01/2019 7:56 AM
--- NOTE | 2019-12-01 08:02 | History & Physical Report ---
Date of Service December 01, 2019 Assessment & Plan (1) Acute cholecystitis: - Admit to med surg - Consult general surgery - discussed with Dr. Bragg and will plan to take pt to the OR tomorrow - NPO with elevated lipase and acute pancreatitis - LR at 200 ml/hr, can slow this later today, pt on lasix 3x weekly which we'll hold - Zosyn IV now - Pain control and antiemetics - Check COVID-19 swab preop (2) Infiltrating ductal carcinoma of right breast: - G3, ER/CA neg, Her2 3+, initially diagnosed 05/09/19 who recently completed 6 cycles of neoadjuvant chemo with docetaxel + carboplatin + trastuzumab (TCH) + pertuzumab (started 06/25/19) on November 04/2020 - Planned mastectomy on 12/09 at [place] with Dr. Burdick - has appointment on tuesday for covid swab and intake (will get one here today for johnny joshi). Was supposed to hold xarelto for 5d prior to this surgery. (3) Hypertension: -Not on antihypertensives, BP 150s over 90s, monitor likely increase secondary to pain (4) Hypothyroidism: -Continue levothyroxine 100 mcg daily -TSH was mildly elevated a few months ago Would not recheck now in the middle of an acute illness (5) Diabetes mellitus type 1: -Insulin pump in place, continue, follow glucose with a.m. labs (6) Nonproliferative diabetic retinopathy: -History of such, chronic (7) Osteoporosis: -Hold home vitamin D and calcium supplementation (8) Hypercholesteremia: -Hold atorvastatin for elevated LFTs (9) Hx of deep venous thrombosis: -History of such in August 2019, had repeat Dopplers ultrasound in October 2019 which showed no DVT. - patient has been on Xarelto 20 mg daily- HOLD -last dose yesterday morning. -Will not give heparin drip as per GI as it seems that she is possibly bleeding into her gallbladder on imaging (10) DVT prophylaxis: No anticoagulation given possible hemorrhage into gallbladder, avoid teds and SCDs for now given history of DVT Hopeful to restart anticoagulation soon as possible after surgery given high risk of VTE CODE: Full code Dispo: From home, likely to remain in the hospital x 2 days History of Present Illness Primary Care Provider: Salvador Kimble MD This is a 79 yo F with PMHx of invasive ductal carcinoma of the lower outer rig ht breast, G3, ER/CA neg, Her2 3+, initially diagnosed 05/09/19 who recently completed 6 cycles of neoadjuvant chemo with docetaxel + carboplatin + trastuzumab (TCH) + pertuzumab (started 06/25/19) on November 04/2020. Other PMHx includes DM type I, diabetic retinopathy, HTN, hypothyroidism, osteoporosis, GERD. She presented overnight via EMS with acute epigastric pain overnight. But she started feeling abdominal discomfort in the late afternoon, was able to eat dinner, and went to bed around 11 PM. She woke up around 1 AM with excruciating right upper quadrant and epigastric pain, called 911 and presented to the ER. She denies any fevers, but did have sweats. She reports her stool was loose and floating this morning when she had a bowel movement, she was acutely nauseous but did not vomit. Her pain is currently improved compared to what it was whenever she first presented, rates it as a 7/10 currently. Her mouth is very dry, she has ice chips at bedside. Pt notes she is [place] [facility] [place] Burdick. Pt was found to have elevated LFTs, lipase, CT of the abdomen pelvis shows distended gallbladder filled with complex debris and sludge there is gallbladder wall thickening and pericholecystic fluid suspicious for acute cholecystitis. RUQ U/S significant for gallstones on review, final report pending. She received IVFs and fentanyl for pain control while in the ER. Allergies Allergy/AdvReac Type Severity Reaction Status Date / Time lisinopril AdvReac Intermediate ELEVATES Verified 12/01/19 03:16 POTASSIUM LEVELS losartan AdvReac Intermediate ELEVATES Verified 12/01/19 03:16 POTASSIUM LEVELS. Home Medications Home Medications Medication Instructions Recorded Confirmed Type magnesium oxide 400 mg PO QDD 05/17/19 12/01/19 History atorvastatin 10 mg tablet 10 mg PO HS #90 tab 06/13/19 12/01/19 Rx calcium carbonate-vitamin D3 600 2 tab PO QAM tab 06/19/19 12/01/19 History mg (1,500 mg)-800 unit tablet insulin aspart U-100 100 unit/mL 0 unit CONTINUOUS SUBCUTANEOUS 06/19/19 12/01/19 History subcutaneous solution INFUSION DIRECTED Lactobacillus 1 cap PO BID cap 09/17/19 12/01/19 History acidophilus-Bifidobac.animalis 31 billion cell capsule pantoprazole 40 mg tablet,delayed 40 mg PO DAILY PRN tab 09/17/19 12/01/19 History release levothyroxine 100 mcg tablet 100 mcg PO DAILY #90 tab 11/12/19 12/01/19 Rx Lasix 20 mg PO 3XWK 12/01/19 12/01/19 History rivaroxaban [Xarelto] 20 mg PO DAILY 12/01/19 12/01/19 History Past Med/Surg History Medical History (Updated 12/01/19 @ 10:57 by Narendra Bragg MD) Anemia hx Breast cancer right Compression fracture of thoracic vertebra Diabetes mellitus type 1 + 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 Fingernail avulsion, partial GERD (gastroesophageal reflux disease) diet controlled Shane's thyroiditis Hyperlipidemia Hypertension Hypothyroidism Osteoarthritis Personal history of Helicobacter infection Subungual hematoma Tendonitis Urinary incontinence Surgical History (Updated 07/26/19 @ 14:42 by Raiza Gibbons) History of breast biopsy right History of carpal tunnel release bilateral History of cataract surgery bilateral History of colonoscopy Hx of tonsillectomy S/P adenoidectomy S/P extracapsular cataract extraction S/P thyroid biopsy Family History (Updated 07/26/19 @ 14:45 by Raiza Gibbons) Sister Breast cancer Father Cancer Brother Diabetes Brother Diabetes Other No family history of adverse response to anesthesia Denies family history of Ovarian cancer Colorectal cancer Social History (Updated 08/17/19 @ 11:56 by Jenni Ramirez) Smoking Status: Never smoker Second Hand Exposure: Yes (hx as a child); Hx Alcohol Use: No Hx Substance Use: No Preferred Language: German Communication Ability: 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 current occupational status: retired Other Information That Helps Us Care for You: No Feels Safe at Home: Yes Safety Concerns: Feels Safe At This Time Physical Activity Frequency: Other Physical Activity Frequency Comment: regularly Review of Systems Review of Systems: Constitutional: No fever, + sweats, no chills Eyes: No diplopia, no worsening or blurred vision ENT: normal hearing, no trouble swallowing Respiratory: No cough, sputum, dyspnea at rest or on exertion Cardiovascular: No chest pain, tightness or palpitations Abdomen: As per HPI Musculoskeletal: No joint pain, calf pain, +Chronic bilateral lower extremity swelling on Lasix Neurologic: No weakness, numbness/tingling, or balance problems Psychiatric: No anxiety or depression Skin: No rash or itch Physical Exam Physical Exam: General: awake, alert, no apparent distress, + alopecia Head: Normocephalic, atraumatic ENT: PERRL, EOMI, no pharyngeal exudate, + mucous membranes very dry, does not have top teeth Chest: Clear to auscultation, on room air, no adventitious breath sounds Cardiac: Regular rate, + slightly tachycardic with HR in mid 90s, no murmur, no JVD, normal peripheral pulses, good capillary refill Abdominal: Hypoactive BS x 4 quadrants, soft, + tender to palpation throughout but specifically in the epigastric and RUQ, no rebound, guarding or tenderness Extremities: Normal inspection, 2+ peripheral edema BLE, no erythema, calfs nontender to palpation Psych: Normal mood and affect Neuro: AAO x 3, strength intact bilaterally and rated 5/5, no motor deficits, speech is clear, no peripheral sensory deficits Skin: no rash or erythema Results & Data Results & Data ([facility]) Vital Signs (Past 12 Hours) Vital Signs Temp Pulse Resp BP Pulse Ox 12/01/19 07:31 100 H 17 12/01/19 07:30 101 H 19 162/86 H 97 12/01/19 07:01 104 H 22 98 12/01/19 07:00 98 H 17 167/80 H 12/01/19 06:31 101 H 21 97 12/01/19 06:30 99 H 20 156/80 H 97 12/01/19 06:04 98 H 12 12/01/19 05:31 104 H 24 97 12/01/19 05:30 19 175/123 H 97 12/01/19 05:20 97 H 18 96 12/01/19 05:10 97 H 21 95 12/01/19 05:01 94 H 18 95 12/01/19 05:00 94 H 15 154/72 H 98 12/01/19 04:50 101 H 24 12/01/19 04:42 100 H 21 12/01/19 04:20 91 H 19 98 12/01/19 04:10 107 H 12/01/19 04:01 91 H 21 98 12/01/19 04:00 88 19 167/73 H 97 12/01/19 03:50 87 22 98 12/01/19 03:40 89 19 98 12/01/19 03:31 89 20 98 12/01/19 03:30 92 H 172/65 H 98 12/01/19 03:20 88 16 96 12/01/19 03:10 90 16 96 12/01/19 03:01 88 21 95 12/01/19 03:00 89 15 177/87 H 97 12/01/19 02:50 83 98 12/01/19 02:41 36.6 C 97 H 20 111/74 99 12/01/19 02:40 81 24 94 12/01/19 02:33 82 100 12/01/19 02:31 80 111/74 99 Diagnostic Findings ABDOMEN AND PELVIS CT WITH IV CONTRAST CT DOSE: 272.73 mGy.cm HISTORY: Acute upper abdominal pain with history of breast cancer eval upper abd. pain; h/o breast CA TECHNIQUE: Multiaxial CT images of the abdomen and pelvis were performed following the IV administration of 93 cc of Optiray 320, A dose lowering technique was utilized adhering to the principles of ALARA. COMPARISON STUDY: Right upper quadrant abdominal ultrasound of same day, CT abdomen and pelvis 07/01/2019 FINDINGS: There are 2 4 mm solid nodules of the right lower lobe. There are a few scattered solid nodules of the left lower lobe also present measuring up to 3 mm. These appear unchanged from comparison. No pneumatosis or pneumoperitoneum. Imaged inferior cardiac chambers are mildly enlarged. Splenic artery calcifications. The spleen and adrenal glands are unremarkable. Distended gallbladder is filled with complex material demonstrates wall thickening with pericholecystic fluid. No appreciable biliary ductal dilation. Patency of the hepatic and portal veins. Unremarkable liver. Cystic pancreatic lesions are redemonstrated measuring up to approximately 8 mm suggestive of probable side branch IPMN's. Heterogeneous appearance of the pancreas with moderate atrophy. There is equivocal stranding adjacent to the pancreatic head. Normal appearance of the kidneys. Mild wall thickening of the urinary bladder. Vascular calcifications of the uterus. No aortic aneurysm or adenopathy. Large hiatal hernia. No bowel obstruction or bowel wall thickening. Mild fecal retention. The appendix is not definitively seen. Mild generalized body wall edema. Degenerative changes of the spine, pelvis and hips. IMPRESSION: 1. Distended gallbladder filled with complex debris/sludge. Additionally, there is gallbladder wall thickening and pericholecystic fluid suspicious for acute cholecystitis. Correlate with right upper quadrant abdominal ultrasound of same day. 2. No biliary ductal dilation. 3. Equivocal stranding adjacent to the pancreatic head is likely reactive. Acute pancreatitis considered less likely. 4. Additional findings as above. US gallbladder HISTORY: 79 years-old Female eval for choley/ pancreatitis acute right upper quadrant abdominal pain COMPARISON: CT abdomen and pelvis of same day TECHNIQUE: Multiple real-time sonographic images of the abdominal right upper quadrant were obtained assessing grayscale appearance and color flow FINDINGS: Limited visualization of the pancreas without focal abnormality identified. Unremarkable liver. Moderately distended gallbladder is fluid-filled with avascular complex material/debris without posterior acoustic shadowing. The gallbladder wall is hypoechoic and edematous appearing measuring up to 4 mm in thickness. No definite pericholecystic fluid. Nonshadowing debris is also present within the common bile duct which measures 7 mm. Negative sonographic Francisco's sign. Unremarkable right kidney without hydronephrosis. IMPRESSION: The gallbladder is distended with mild wall thickening. There is no shadowing cholelithiasis or pericholecystic fluid. The gallbladder however is diffusely filled with complex avascular material suggestive of sludge versus blood products. Additionally, the nondilated common bile duct appears to be filled with nonshadowing debris. Correlate with clinical presentation and laboratory analysis to exclude acute cholecystitis. Code Status & VTE Plan Code Status Full Code -discussed with the patient at bedside Supervising Physician Co-Signing Physician Notes LUIS MIGUEL Supervision Note: I personally saw and examined the patient. I verified all jackson points and agree with LUIS MIGUEL Funez with the following exceptions and/or additions: Patient is here with significant epigastric abdominal pain, found to have pancreatitis and acute cholecystitis with possible hemorrhage into the gallbladder on imaging With significantly elevated LFTs. History and ROS reviewed as above Patient also reports she had an echocardiogram performed 1 month ago which showed some diastolic dysfunction and a mild leaky valve. She was seen by cardiology, Dr. Vega, and was started on Lasix for her lower extremity edema 3 times a week but was told that the echocardiogram findings were not severe. She typically can go up and down a flight of stairs without any chest pain, but has had to stop lately undergoing chemotherapy due to her anemia Vitals reviewed Gen: AAOx3, NAD, with alopecia HEENT: Anicteric sclerae, EOMI CV: RRR no mgr nl S1S2 Pulm: CTAB no wcr Abd: +BS soft positive tenderness palpation epigastric region without guarding or rebound ND no masses or hernias Ext: 1+ pitting edema bilateral lower extremities to the knees, 2+ DP pulses Skin: No rashes, warm/dry Neuro: Full strength throughout 79-year-old female with history of breast cancer undergoing chemotherapy, hypothyroidism, hyperlipidemia, DM 1 on insulin pump, GERD, and history of DVT on Xarelto, here with acute pancreatitis secondary to gallstones versus gallbladder hemorrhage. Appreciate GI and surgical consultations -Plan for ERCP and cholecystectomy tomorrow -Continue to hold anticoagulation and restart as soon as possible given high risk for DVT/PE -Continue Zosyn, pain control, IV fluids -We will turn IV fluids down this evening to 150 mL's per hour --With baseline anemia, follow CBC and transfuse as needed for hemoglobin less than 8 -We will obtain echocardiogram result through the [facility] system for review PG Care Time/CCT Total # of Minutes Spent Total Time Spent with Patient: Total time spent is greater than 50% in coordination of care (as documented) at patient's floor/unit and/or counseling patient: Coding Level of Care Code 22965 Initial Inpt Care Lvl 3 Diagnoses Acute cholecystitis K81.0 Infiltrating ductal carcinoma of right breast C50.911 Hypertension I10 Hypothyroidism E03.9 Diabetes mellitus type 1 E10.9 Nonproliferative diabetic retinopathy E11.3299 Osteoporosis M81.0 Hypercholesteremia E78.00 Hx of deep venous thrombosis Z86.718 DVT prophylaxis Z29.9
--- NOTE | 2019-12-01 08:25 | Ultrasound Report ---
US gallbladder HISTORY: 79 years-old Female eval for choley/ pancreatitis acute right upper quadrant abdominal pain COMPARISON: CT abdomen and pelvis of same day TECHNIQUE: Multiple real-time sonographic images of the abdominal right upper quadrant were obtained assessing grayscale appearance and color flow FINDINGS: Limited visualization of the pancreas without focal abnormality identified. Unremarkable liver. Moder ately distended gallbladder is fluid-filled with avascular complex material/debris without posterior acoustic shadowing. The gallbladder wall is hypoechoic and edematous appearing measuring up to 4 mm i n thickness. No definite pericholecystic fluid. Nonshadowing debris is also present within the common bile duct which measures 7 mm. Negative sonographic Francisco's sign. Unremarkable right kidney without hydronephrosis. IMPRESSION: The gallbladder is distended with mild wall thickening. There is no shadowing cholelithiasis or peric holecystic fluid. The gallbladder however is diffusely filled with complex avascular material suggest tone of sludge versus blood products. Additionally, the nondilated common bile duct appears to be fill ed with nonshadowing debris. Correlate with clinical presentation and laboratory analysis to exclude acute cholecystitis. ACT 112: Negative or not required by law. The above report was generated using voice recognition software. It may contain grammatical, syntax o r spelling errors. Electronically signed by: Jeffrey Palacio M.D. 12/01/2019 8:24 AM
[2019-12-01] MEDS ORDERED: INSULIN ASPART PER UNIT SQ SCH (09:32)
[2019-12-01] MEDS ORDERED: [UNRECOGNIZED DRUG - OTHER] PO SCH (09:32)
[2019-12-01] MEDS ORDERED: PANTOprazole 40 MG TAB PO PRN (09:32)
[2019-12-01] MEDS ORDERED: PIPERACILL/TAZOBAC CONSULT ACTIVE PRN (09:32)
[2019-12-01] MEDS ORDERED: HYDROmorphone INJ 0.5 MG/0.5 ML SYR IV STA (09:32)
[2019-12-01] MEDS ORDERED: Heparin IV Standard *NO* Bolus IV SCH (09:32)
[2019-12-01] MEDS ORDERED: ONDANSETRON INJ 2 MG/ML 2 ML VIAL IV PRN (09:32)
[2019-12-01] MEDS ORDERED: HYDROmorphone INJ 0.5 MG/0.5 ML SYR IV PRN (09:32)
[2019-12-01] MEDS ORDERED: PIPERACILLIN/TAZOBACTAM 4.5 GM/120 ML BAG IV SCH (09:32)
[2019-12-01] MEDS ORDERED: PIPERACILLIN/TAZOBACTAM 3.375 GM in DEXTROSE 5% 100 ML IV ONE (10:00)
[2019-12-01] MEDS: LACTATED RINGER'S 1,000 ML IV SCH ×2 (10:12→15:37)
[2019-12-01] MEDS ORDERED: DEXTROSE 50% 50 ML SYRINGE IV PRN ×2 (10:15→10:26)
[2019-12-01] MEDS ORDERED: GLUCOSE 40% GEL 15 GM TUBE PO PRN ×2 (10:15→10:26)
[2019-12-01] MEDS ORDERED: GLUCAGON FOR INJ 1 MG VIAL SQ PRN ×2 (10:15→10:26)
[2019-12-01] MEDS ORDERED: GLUCOSE 10 TABS/TUBE PO PRN ×2 (10:15→10:26)
[2019-12-01] MEDS ORDERED: INSULIN ASPART 100 UNITS/ML VIAL SC PRN (10:15)
[2019-12-01] MEDS ORDERED: CARBOHYDRATES FOR HYPOGLYCEMIA PO PRN (10:26)
[2019-12-01] MEDS ORDERED: HEPARIN SODIUM/DEXTROSE 25,000 UNITS/500 ML BAG IV SCH (10:30)
--- NOTE | 2019-12-01 10:56 | Surgery Consultation ---
Date of Consultation December 01, 2019 Assessment & Plan (1) Acute cholecystitis: IV abx NPO SCDs, stop xarelto lap madelyn tomorrow after ERCP Present on Admission?: Yes (2) Choledocholithiasis: ERCP History of Present Illness Attending Physician: Rhiannon Jones MD History of Present Illness This is a 79 yo F with PMHx of invasive ductal carcinoma of the lower outer right breast, G3, ER/CA neg, Her2 3+, initially diagnosed 05/09/19 who recently completed 6 cycles of neoadjuvant chemo with docetaxel + carboplatin + trastuzumab (TCH) + pertuzumab (started 06/25/19) on November 04/2020 also PMHx of DM type I, diabetic retinopathy, HTN, hypothyroidism, osteoporosis, GERD. She presented with acute right upper quadrant and epigastric pain. She denies any fevers or chills. She was naused but did not vomit. Her pain is currently gone and she was found to have elevated LFTs, lipase, CT of the abdomen pelvis shows distended gallbladder filled with complex debris and sludge there is gallbladder wall thickening and pericholecystic fluid suspicious for acute cholecystitis. RUQ U/S significant for gallstones. She is on xarelto which she last took Tuesday for a previous DVT. Allergies Allergy/AdvReac Type Severity Reaction Status Date / Time lisinopril AdvReac Intermediate ELEVATES Verified 12/01/19 03:16 POTASSIUM LEVELS losartan AdvReac Intermediate ELEVATES Verified 12/01/19 03:16 POTASSIUM LEVELS. Home Medications Home Medications Medication Instructions Recorded Confirmed Type magnesium oxide 400 mg PO QDD 05/17/19 12/01/19 History atorvastatin 10 mg tablet 10 mg PO HS #90 tab 06/13/19 12/01/19 Rx calcium carbonate-vitamin D3 600 2 tab PO QAM tab 06/19/19 12/01/19 History mg (1,500 mg)-800 unit tablet insulin aspart U-100 100 unit/mL 0 unit CONTINUOUS SUBCUTANEOUS 06/19/19 12/01/19 History subcutaneous solution INFUSION DIRECTED Lactobacillus 1 cap PO BID cap 09/17/19 12/01/19 History acidophilus-Bifidobac.animalis 31 billion cell capsule pantoprazole 40 mg tablet,delayed 40 mg PO DAILY PRN tab 09/17/19 12/01/19 History release levothyroxine 100 mcg tablet 100 mcg PO DAILY #90 tab 11/12/19 12/01/19 Rx Lasix 20 mg PO 3XWK 12/01/19 12/01/19 History rivaroxaban [Xarelto] 20 mg PO DAILY 12/01/19 12/01/19 History Patient History Medical History (Updated 12/01/19 @ 10:57 by Narendra Bragg MD) Anemia hx Breast cancer right Compression fracture of thoracic vertebra Diabetes mellitus type 1 + insulin pump/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 Fingernail avulsion, partial GERD (gastroesophageal reflux disease) diet controlled Shane's thyroiditis Hyperlipidemia Hypertension Hypothyroidism Osteoarthritis Personal history of Helicobacter infection Subungual hematoma Tendonitis Urinary incontinence Surgical History (Updated 07/26/19 @ 14:42 by Raiza Gibbons) History of breast biopsy right History of carpal tunnel release bilateral History of cataract surgery bilateral History of colonoscopy Hx of tonsillectomy S/P adenoidectomy S/P extracapsular cataract extraction S/P thyroid biopsy Family History (Updated 07/26/19 @ 14:45 by Raiza Gibbons) Sister Breast cancer Father Cancer Brother Diabetes Brother Diabetes Other No family history of adverse response to anesthesia Denies family history of Ovarian cancer Colorectal cancer Social History (Updated 08/17/19 @ 11:56 by Jenni Ramirez) Smoking Status: Former smoker Second Hand Exposure: Yes (hx as a child); Hx Alcohol Use: No Hx Substance Use: No Preferred Language: British Communication Ability: Effective It Application Support Analyst Required: No Beliefs That Will Affect Care: None marital status: / Current Living Situation: Alone Current Living Situation Comment: mother lives with her. current occupational status: retired Feels Safe at Home: Yes Physical Activity Frequency: Other Physical Activity Frequency Comment: regularly Review of Systems Constitutional: + anorexia; no fever and no chills Respiratory: no cough and no dyspnea Cardiovascular: no chest pain Gastrointestinal: + abdominal pain and + nausea; no vomiting and no change in bowel habits Genitourinary: no dysuria Musculoskeletal: + back pain Integumentary: no yellowing of the skin and no problem reported Neurologic: + generalized weakness; no localized weakness Psychiatric: no problem reported Endocrine: no problem reported Hematologic / Lymphatic: + easy bleeding and + easy bruising Physical Exam Constitutional: average body habitus Eyes: + anicteric sclerae Neck: trachea midline Respiratory: normal respiratory effort, lungs clear to auscultation Cardiovascular: RRR, no murmur, no edema Gastrointestinal (Abdomen): Inspection/Auscultation: abdomen normal to inspection and normal bowel sounds; abdomen not distended Percussion/Palpation: + abdomen tender; no guarding Musculoskeletal: Head/Neck/Chest: normocephalic and neck supple Skin: no rashes, warm and dry Neurologic: no focal motor deficits Psychiatric: Orientation: alert and oriented x 3 Results & Data ([facility]) Vital Signs (Past 12 Hours) Vital Signs Temp Pulse Resp BP Pulse Ox 12/01/19 09:00 93 H 24 133/67 99 12/01/19 08:31 96 H 20 99 12/01/19 08:30 99 H 23 153/78 H 99 12/01/19 08:01 118 H 19 12/01/19 08:00 96 H 19 154/95 H 98 12/01/19 07:31 100 H 17 12/01/19 07:30 101 H 19 162/86 H 97 12/01/19 07:01 104 H 22 98 12/01/19 07:00 98 H 17 167/80 H 12/01/19 06:31 101 H 21 97 12/01/19 06:30 99 H 20 156/80 H 97 12/01/19 06:04 98 H 12 12/01/19 05:31 104 H 24 97 12/01/19 05:30 19 175/123 H 97 12/01/19 05:20 97 H 18 96 12/01/19 05:10 97 H 21 95 12/01/19 05:01 94 H 18 95 12/01/19 05:00 94 H 15 154/72 H 98 12/01/19 04:50 101 H 24 12/01/19 04:42 100 H 21 12/01/19 04:20 91 H 19 98 12/01/19 04:10 107 H 12/01/19 04:01 91 H 21 98 12/01/19 04:00 88 19 167/73 H 97 12/01/19 03:50 87 22 98 12/01/19 03:40 89 19 98 12/01/19 03:31 89 20 98 12/01/19 03:30 92 H 172/65 H 98 12/01/19 03:20 88 16 96 12/01/19 03:10 90 16 96 12/01/19 03:01 88 21 95 12/01/19 03:00 89 15 177/87 H 97 12/01/19 02:50 83 98 12/01/19 02:41 36.6 C 97 H 20 111/74 99 12/01/19 02:40 81 24 94 12/01/19 02:33 82 100 12/01/19 02:31 80 111/74 99 Diagnostic Findings US gallbladder HISTORY: 79 years-old Female eval for choley/ pancreatitis acute right upper quadrant abdominal pain COMPARISON: CT abdomen and pelvis of same day TECHNIQUE: Multiple real-time sonographic images of the abdominal right upper quadrant were obtained assessing grayscale appearance and color flow FINDINGS: Limited visualization of the pancreas without focal abnormality identified. Unremarkable liver. Moderately distended gallbladder is fluid-filled with avascular complex material/debris without posterior acoustic shadowing. The gallbladder wall is hypoechoic and edematous appearing measuring up to 4 mm in thickness. No definite pericholecystic fluid. Nonshadowing debris is also present within the common bile duct which measures 7 mm. Negative sonographic Francisco's sign. Unremarkable right kidney without hydronephrosis. IMPRESSION: The gallbladder is distended with mild wall thickening. There is no shadowing cholelithiasis or pericholecystic fluid. The gallbladder however is diffusely filled with complex avascular material suggestive of sludge versus blood products. Additionally, the nondilated common bile duct appears to be filled with nonshadowing debris. Correlate with clinical presentation and laboratory analysis to exclude acute cholecystitis.
[2019-12-01 11:06] LABS: Eosinophils # (auto) 0.01 K/uL (0-0.5); Eosinophils % (auto) 0.1 %; Hematocrit (blood only) 25.5 % (37-47); Hemoglobin 8.1 g/dL (12.0-16.0); Immature Granulocytes # (auto) 0.01 K/uL (0.00-0.02); Immature Granulocytes % (auto) 0.1 %; Lymphocytes # (auto) 1.74 K/uL (1.2-3.4); Mean Corpuscular Hemoglobin 26.6 pg (25-34); Mean Corpuscular Volume 83.6 fL (80-100); Mean Platelet Volume 9.2 fL (7.4-10.4); Monocytes % (auto) 10.1 %; Neutrophils # (auto) 5.34 K/uL (1.4-6.5); Neutrophils % (auto) 67.7 %; Platelet Count 310 K/uL (130-400); RDW Coefficient of Variation 15.5 % (11.5-14.5); RDW Standard Deviation 47.6 fL (36.4-46.3); Red Blood Count 3.05 M/uL (4.2-5.4)
[2019-12-01 11:16] LABS: INR 1.4 (0.9-1.1); Partial Thromboplastin Ratio 1.1; Prothrombin Time 14.2 Seconds (9.0-12.0)
[2019-12-01 11:28] LABS: Mean Corpuscular Hgb Conc 31.8 g/dL (32-36)
[2019-12-01] MEDS ORDERED: INSULIN ASPART 100 UNITS/ML 3 ML PEN SC SCH ×2 (11:30→21:00)
[2019-12-01] MEDS ORDERED: NovoLOG INSULIN PUMP SCH ×2 (11:30→18:00)
[2019-12-01] MEDS ORDERED: Nursing to Pharmacy Communication SCH (15:45)
--- NOTE | 2019-12-01 16:23 | Gastrointestinal Consultation ---
Date of Consultation December 01, 2019 Assessment & Plan (1) Choledocholithiasis: ? Hemobilia related to hemorrhagis cholecystitis in the setting of use of Xarelto. ERCP tomorrow combined with Lap madelyn Hold Anticoagulation. Monitor H/H (2) Acute cholecystitis: (3) Elevated LFTs: (4) Pancreatic cyst: History of Present Illness Attending Physician: Rhiannon Jones MD History of Present Illness 79 years old female patient with Breast cancer, on Chemo, DVT on Xarelto, admitted with abdominal pain, found to have elevated LFTs, lipase and imaging showing CBD stone/sludge and cholecystitis. Denies fever or chills, no nausea or vomiting, no diarrhea or constipation. Allergies Allergy/AdvReac Type Severity Reaction Status Date / Time lisinopril AdvReac Intermediate ELEVATES Verified 12/01/19 03:16 POTASSIUM LEVELS losartan AdvReac Intermediate ELEVATES Verified 12/01/19 03:16 POTASSIUM LEVELS. Home Medications Home Medications Medication Instructions Recorded Confirmed Type magnesium oxide 400 mg PO QDD 05/17/19 12/01/19 History atorvastatin 10 mg tablet 10 mg PO HS #90 tab 06/13/19 12/01/19 Rx calcium carbonate-vitamin D3 600 2 tab PO QAM tab 06/19/19 12/01/19 History mg (1,500 mg)-800 unit tablet insulin aspart U-100 100 unit/mL 0 unit CONTINUOUS SUBCUTANEOUS 06/19/19 12/01/19 History subcutaneous solution INFUSION DIRECTED Lactobacillus 1 cap PO BID cap 09/17/19 12/01/19 History acidophilus-Bifidobac.animalis 31 billion cell capsule pantoprazole 40 mg tablet,delayed 40 mg PO DAILY PRN tab 09/17/19 12/01/19 History release levothyroxine 100 mcg tablet 100 mcg PO DAILY #90 tab 11/12/19 12/01/19 Rx Lasix 20 mg PO 3XWK 12/01/19 12/01/19 History rivaroxaban [Xarelto] 20 mg PO DAILY 12/01/19 12/01/19 History Patient History Medical History (Updated 12/01/19 @ 20:21 by Hernandez Lozada MD) Anemia hx Breast cancer right Compression fracture of thoracic vertebra Diabetes mellitus type 1 + insulin pump/follows with [facility] 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 Fingernail avulsion, partial GERD (gastroesophageal reflux disease) diet controlled Shane's thyroiditis Hyperlipidemia Hypertension Hypothyroidism Osteoarthritis Personal history of Helicobacter infection Subungual hematoma Tendonitis Urinary incontinence Surgical History (Updated 07/26/19 @ 14:42 by Raiza Gibbons) History of breast biopsy right History of carpal tunnel release bilateral History of cataract surgery bilateral History of colonoscopy Hx of tonsillectomy S/P adenoidectomy S/P extracapsular cataract extraction S/P thyroid biopsy Family History (Updated 07/26/19 @ 14:45 by Raiza Gibbons) Sister Breast cancer Father Cancer Brother Diabetes Brother Diabetes Other No family history of adverse response to anesthesia Denies family history of Ovarian cancer Colorectal cancer Social History (Updated 08/17/19 @ 11:56 by Jenni Ramirez) Smoking Status: Never smoker Second Hand Exposure: Yes (hx as a child); Hx Alcohol Use: No Hx Substance Use: No Preferred Language: Turkish Communication Ability: Effective Internet Database Specialist Required: No Beliefs That Will Affect Care: None marital status: / Current Living Situation: Alone Current Living Situation Comment: mother lives with her. current occupational status: retired Other Information That Helps Us Care for You: No Feels Safe at Home: Yes Safety Concerns: Feels Safe At This Time Physical Activity Frequency: Other Physical Activity Frequency Comment: regularly Review of Systems Constitutional: no fever, no chills, no fatigue and no weight loss Eyes: no eye pain and no worsening vision Ear, Nose, Mouth, Throat: no tinnitus, no dizziness, no nasal discharge and no epistaxis Respiratory: no cough, no dyspnea, no dyspnea on exertion and no wheezing Cardiovascular: no chest pain, no orthopnea, no palpitations and no edema Gastrointestinal: as per Subjective / HPI Genitourinary: no dysuria, no urinary frequency, no urinary incontinence and no hematuria Musculoskeletal: no stiffness and no myalgia Neurologic: no localized weakness, no paralysis, no tremor(s) and no headache(s) Endocrine: no polydipsia and no polyuria Hematologic / Lymphatic: no easy bleeding and no night sweats Physical Exam Constitutional: + well hydrated, cooperative and comfortable Eyes: PERRL, conjunctivae normal, anicteric sclerae ENMT: external ear and nose normal, oropharynx normal Neck: normal visual inspection and trachea midline Respiratory: normal respiratory effort, lungs clear to auscultation Auscultation: no wheezes Cardiovascular: RRR, no murmur, no edema Gastrointestinal (Abdomen): normal bowel sounds, soft, nontender, no hep atosplenomegaly Musculoskeletal: no cyanosis or clubbing, extremities motor strength 5/5 Skin: no rashes, warm and dry Neurologic: awake; no focal motor deficits Motor/Sensory: no tremor Results & Data ([facility]) Vital Signs (Past 12 Hours) Vital Signs Temp Pulse Pulse Resp BP BP Pulse Ox 12/01/19 15:43 36.9 C 86 18 137/73 95 12/01/19 09:30 36.7 C 80 20 161/73 H 100 12/01/19 09:00 93 H 24 133/67 99 12/01/19 08:31 96 H 20 99 12/01/19 08:30 99 H 23 153/78 H 99 12/01/19 08:01 118 H 19 12/01/19 08:00 96 H 19 154/95 H 98 12/01/19 07:31 100 H 17 12/01/19 07:30 101 H 19 162/86 H 97 12/01/19 07:01 104 H 22 98 12/01/19 07:00 98 H 17 167/80 H 12/01/19 06:31 101 H 21 97 12/01/19 06:30 99 H 20 156/80 H 97 12/01/19 06:04 98 H 12 12/01/19 05:31 104 H 24 97 12/01/19 05:30 19 175/123 H 97 12/01/19 05:20 97 H 18 96 12/01/19 05:10 97 H 21 95 12/01/19 05:01 94 H 18 95 12/01/19 05:00 94 H 15 154/72 H 98 12/01/19 04:50 101 H 24 12/01/19 04:42 100 H 21 Laboratory Results Laboratory Results - last 24 hr 12/01/19 12/01/19 12/01/19 03:39 03:39 04:53 WBC 10.52 RBC 3.17 L Hgb 8.4 L Hct 27.2 L MCV 85.8 MCH 26.5 MCHC 30.9 L RDW Std Deviation 48.7 H RDW Coeff of Mikayla 15.4 H Plt Count 320 MPV 9.3 Immature Gran % (Auto) 0.2 Neut % (Auto) 83.9 Lymph % (Auto) 7.8 Glynn % (Auto) 7.2 Eos % (Auto) 0.9 Baso % (Auto) 0.0 Neut # (Auto) 8.83 H Lymph # (Auto) 0.82 L Glynn # (Auto) 0.76 H Eos # (Auto) 0.09 Baso # (Auto) 0.00 Immature Gran # (Auto) 0.02 PT INR APTT PTT Ratio Sodium 141 Potassium 4.7 Chloride 112 H Carbon Dioxide 25 Anion Gap 4.0 BUN 19 H Creatinine 0.91 Est Cr Clr Drug Dosing 43.9 Est GFR ( Amer) 69.5 Est GFR (Non-Af Amer) 60.0 BUN/Creatinine Ratio 21.3 H Glucose 303 H* POC Glucose Calcium 7.6 L Total Bilirubin 0.5 AST 1394 H ALT 303 H Alkaline Phosphatase 224 H Total Protein 5.4 L Albumin 2.4 L Globulin 3.0 Albumin/Globulin Ratio 0.8 L Lipase 6864 H Beta-Hydroxybutyric Acd Specimen Hemolysis Urine Color Urine Appearance Urine pH Ur Specific [place] Urine Protein Urine Glucose (UA) Urine Ketones Urine Blood Urine Nitrite Urine Bilirubin Urine Urobilinogen Ur Leukocyte Esterase Urine RBC Urine WBC Ur Epithelial Cells Urine Bacteria COVID-19 Eval Order SARS-CoV-2, RNA, NAAT 12/01/19 12/01/19 12/01/19 05:32 06:15 10:49 WBC 7.90 RBC 3.05 L Hgb 8.1 L Hct 25.5 L MCV 83.6 MCH 26.6 MCHC 31.8 L RDW Std Deviation 47.6 H RDW Coeff of Mikayla 15.5 H Plt Count 310 MPV 9.2 Immature Gran % (Auto) 0.1 Neut % (Auto) 67.7 Lymph % (Auto) 22.0 Glynn % (Auto) 10.1 Eos % (Auto) 0.1 Baso % (Auto) 0.0 Neut # (Auto) 5.34 Lymph # (Auto) 1.74 Glynn # (Auto) 0.80 H Eos # (Auto) 0.01 Baso # (Auto) 0.00 Immature Gran # (Auto) 0.01 PT INR APTT PTT Ratio Sodium Potassium Chloride Carbon Dioxide Anion Gap BUN Creatinine Est Cr Clr Drug Dosing Est GFR ( Amer) Est GFR (Non-Af Amer) BUN/Creatinine Ratio Glucose POC Glucose Calcium Total Bilirubin AST ALT Alkaline Phosphatase Total Protein Albumin Globulin Albumin/Globulin Ratio Lipase Beta-Hydroxybutyric Acd 4.22 H Specimen Hemolysis Urine Color Yellow Urine Appearance Clear Urine pH 7.5 Ur Specific [place] 1.015 Urine Protein Negative Urine Glucose (UA) 3+ H Urine Ketones Negative Urine Blood 1+ H Urine Nitrite Positive A Urine Bilirubin Negative Urine Urobilinogen Negative Ur Leukocyte Esterase 1+ H Urine RBC 0-4 Urine WBC >30 H Ur Epithelial Cells 5-10 H Urine Bacteria 2+ H COVID-19 Eval Order SARS-CoV-2, RNA, NAAT 12/01/19 12/01/19 12/01/19 10:49 12:05 12:07 WBC RBC Hgb Hct MCV MCH MCHC RDW Std Deviation RDW Coeff of Mikayla Plt Count MPV Immature Gran % (Auto) Neut % (Auto) Lymph % (Auto) Glynn % (Auto) Eos % (Auto) Baso % (Auto) Neut # (Auto) Lymph # (Auto) Glynn # (Auto) Eos # (Auto) Baso # (Auto) Immature Gran # (Auto) PT 14.2 H INR 1.4 H APTT 31.0 PTT Ratio 1.1 Sodium Potassium Chloride Carbon Dioxide Anion Gap BUN Creatinine Est Cr Clr Drug Dosing Est GFR ( Amer) Est GFR (Non-Af Amer) BUN/Creatinine Ratio Glucose POC Glucose 311 H* 299 H Calcium Total Bilirubin AST ALT Alkaline Phosphatase Total Protein Albumin Globulin Albumin/Globulin Ratio Lipase Beta-Hydroxybutyric Acd Specimen Hemolysis Urine Color Urine Appearance Urine pH Ur Specific [place] Urine Protein Urine Glucose (UA) Urine Ketones Urine Blood Urine Nitrite Urine Bilirubin Urine Urobilinogen Ur Leukocyte Esterase Urine RBC Urine WBC Ur Epithelial Cells Urine Bacteria COVID-19 Eval Order SARS-CoV-2, RNA, NAAT 12/01/19 12/01/19 12/01/19 12:45 12:45 17:53 WBC RBC Hgb Hct MCV MCH MCHC RDW Std Deviation RDW Coeff of Mikayla Plt Count MPV Immature Gran % (Auto) Neut % (Auto) Lymph % (Auto) Glynn % (Auto) Eos % (Auto) Baso % (Auto) Neut # (Auto) Lymph # (Auto) [place]nn # (Auto) Eos # (Auto) Baso # (Auto) Immature Gran # (Auto) PT INR APTT PTT Ratio Sodium Potassium Chloride Carbon Dioxide Anion Gap BUN Creatinine Est Cr Clr Drug Dosing Est GFR ( Amer) Est GFR (Non-Af Amer) BUN/Creatinine Ratio Glucose POC Glucose 249 H Calcium Total Bilirubin AST ALT Alkaline Phosphatase Total Protein Albumin Globulin Albumin/Globulin Ratio Lipase Beta-Hydroxybutyric Acd Specimen Hemolysis Urine Color Urine Appearance Urine pH Ur Specific [place] Urine Protein Urine Glucose (UA) Urine Ketones Urine Blood Urine Nitrite Urine Bilirubin Urine Urobilinogen Ur Leukocyte Esterase Urine RBC Urine WBC Ur Epithelial Cells Urine Bacteria COVID-19 Eval Order Covid19 [facility] SARS-CoV-2, RNA, NAAT N 12/01/19 19:19 WBC RBC Hgb Hct MCV MCH MCHC RDW Std Deviation RDW Coeff of Mikayla Plt Count MPV Immature Gran % (Auto) Neut % (Auto) Lymph % (Auto) [place]nn % (Auto) Eos % (Auto) Baso % (Auto) Neut # (Auto) Lymph # (Auto) Glynn # (Auto) Eos # (Auto) Baso # (Auto) Immature Gran # (Auto) PT INR APTT PTT Ratio Sodium Potassium Chloride Carbon Dioxide Anion Gap BUN Creatinine Est Cr Clr Drug Dosing Est GFR ( Amer) Est GFR (Non-Af Amer) BUN/Creatinine Ratio Glucose POC Glucose 193 H Calcium Total Bilirubin AST ALT Alkaline Phosphatase Total Protein Albumin Globulin Albumin/Globulin Ratio Lipase Beta-Hydroxybutyric Acd Specimen Hemolysis Urine Color Urine Appearance Urine pH Ur Specific [place] Urine Protein Urine Glucose (UA) Urine Ketones Urine Blood Urine Nitrite Urine Bilirubin Urine Urobilinogen Ur Leukocyte Esterase Urine RBC Urine WBC Ur Epithelial Cells Urine Bacteria COVID-19 Eval Order SARS-CoV-2, RNA, NAAT
[2019-12-01] MEDS ORDERED: MAGNESIUM OXIDE 400 MG TAB PO SCH (16:30)
[2019-12-01] MEDS: PIPERACILLIN/TAZOBACTAM 3.375 GM in DEXTROSE 5% 100 ML IV SCH ×2 (16:43→23:32)
[2019-12-01] MEDS: SODIUM CHLORIDE 0.9% 1000ML 1,000 ML IV SCH ×2 (17:02→22:02)
[2019-12-01] MEDS ORDERED: PHARMACY GLYCEMIC MGMT CONSULT PRN (18:27)
[2019-12-01] MEDS ORDERED: INSULIN GLARGINE SOLOSTAR 100 UNITS/ML 3 ML PEN SC ONE (19:00)
--- NOTE | 2019-12-01 19:41 | Pharmacy Report ---
Glycemic Control Consultation - Date of Service December 01, 2019 - Scope Scope: Glycemic Pharmacist consulted for glycemic control and to write orders per [facility] inpatient glycemic control protocol. - Objective Weight: 65.9 kg Accuchecks BSG (last 24hrs): 12/01/19 12/01/19 12/01/19 03:39 12:05 12:07 Glucose 303 H* POC Glucose 311 H* 299 H 12/01/19 17:53 Glucose POC Glucose 249 H Laboratory Data (last 24hrs): 12/01/19 12/01/19 12/01/19 03:39 04:53 06:15 Potassium 4.7 Carbon Dioxide 25 Anion Gap 4.0 Creatinine 0.91 Est Cr Clr Drug Dosing 43.9 Beta-Hydroxybutyric Acd 4.22 H - Recent Pertinent Medications Outpatient Anti-diabetic Regimen: * Novolog insulin pump obtained by nursing (similar to previous admission) * Basal rates: * -2243-4777: 0.4 unit/hr * -1170-1192: 0.625 unit/hr * -2840-5843: 0.75 unit/hr * -0145-3419: 0.5 unit/hr * Carb ratio: ~12-13 * Correction factor: ~40-55 * A1c = 8 % (09/19/19) The patient is currently receiving: * Novolog insulin pump per home settings Risk Factors for Insulin Resistance: * Infection: Acute cholecystitis - Zosyn * IVF: NS @200 mL/hr, heparin gtt * Diet: NPO - laparoscopic cholecystectomy scheduled for tomorrow - Assessment & Plan Assessment & Plan: ASSESSMENT: * LR is a 79 year old female admitted for acute cholecystitis * Currently NPO - scheduled for laparoscopic cholecystectomy tomorrow morning * Pharmacy consulted evening of 11/30 for persistently high BSGs despite home Novolog pump * BSGs ranging 249-311 mg/dL prior to consult * Will discontinue insulin pump and manage with SC basal/bolus regimen * Will give 12 units of Lantus now at time of pump discontinuation (approx. 80% of basal needs per pump settings) * Conservative Novolog with overnight check this evening PLAN FOR INPATIENT GLYCEMIC CONTROL: * Holding home Novolog pump * Basal insulin * Lantus 12 units SQ x 1 * Will reassess tomorrow morning * Bolus insulin * NovoLog per scale ACHS or Q6hrs while NPO * Goal Range: Low 110 mg/dL - High 140 mg/dL * Correction Factor: 40 mg/dL/unit * Nutritional / Prandial insulin per carb ratio of 1 unit per 12 grams CHO consumed * 0300 check this evening with same parameters * Please note that the plan above was derived based on current level of insulin resistance and hospital stress. These recommendations are appropriate for inpa tient admission only. Plan of care upon discharge will need to be reassessed to avoid potential outpatient hypo/hyperglycemia. Thank you.
[2019-12-01] MEDS: INSULIN ASPART 100 UNITS/ML 3 ML PEN SC SCH (19:49)
[2019-12-01] MEDS ORDERED: ATORVASTATIN 10 MG TAB PO SCH (21:00)
[2019-12-02] MEDS: INSULIN ASPART 100 UNITS/ML 3 ML PEN SC SCH ×6 (00:09→21:17)
[2019-12-02] MEDS: SODIUM CHLORIDE 0.9% 1000ML 1,000 ML IV SCH ×4 (02:58→20:37)
[2019-12-02] MEDS ORDERED: INSULIN ASPART 100 UNITS/ML 3 ML PEN SC SCH ×3 (03:00→19:00)
[2019-12-02] MEDS ORDERED: CEFAZOLIN 2000MG 2,000 MG/15 ML SYR IV SCH (06:00)
[2019-12-02] MEDS: LEVOTHYROXINE SODIUM 100 MCG TABLET PO SCH (06:20)
[2019-12-02 06:31] LABS: Hematocrit (blood only) 24.6 % (37-47); Hemoglobin 7.9 g/dL (12.0-16.0); Mean Corpuscular Hgb Conc 32.1 g/dL (32-36); Mean Platelet Volume 9.4 fL (7.4-10.4); Platelet Count 326 K/uL (130-400); RDW Coefficient of Variation 15.4 % (11.5-14.5); RDW Standard Deviation 47.9 fL (36.4-46.3); Red Blood Count 2.93 M/uL (4.2-5.4)
[2019-12-02 06:45] LABS: Partial Thromboplastin Ratio 1.1; Partial Thromboplastin Time 31.3 Seconds (21.0-31.0)
[2019-12-02] MEDS ORDERED: IOVERSOL 50ml IV ONE (06:47)
[2019-12-02 06:54] LABS: Albumin Level 2.2 gm/dl (3.4-5.0); BUN Creatinine Ratio 16.3 (10-20); Bilirubin Direct 1.7 mg/dl (0-0.2); Calcium 7.8 mg/dl (8.5-10.1); Creatinine Clr Calc Pharmacy 43.7 ml/min; Est GFR (African American) 67.7; Est GFR (Non-African American) 58.5; Magnesium 1.6 mg/dl (1.8-2.4); Potassium 4.1 mmol/L (3.5-5.1)
[2019-12-02 07:02] LABS: Bilirubin,Total 2.2 mg/dl (0.2-1); Total Protein 4.9 gm/dl (6.4-8.2)
--- NOTE | 2019-12-02 07:16 | Surgery Progress Note ---
Date of Service December 02, 2019 Assessment & Plan (1) Acute cholecystitis: to OR for lap madelyn after ERCP (2) Choledocholithiasis: Admission and Anticipated Discharge Date Admission Date: December 01, 2019 Subjective doing well Review of Systems Constitutional: no fever and no chills Respiratory: no cough and no dyspnea Cardiovascular: no chest pain Gastrointestinal: + abdominal pain; no nausea and no vomiting Genitourinary: no dysuria Physical Exam Constitutional: well developed Neck: trachea midline Respiratory: normal respiratory effort, lungs clear to auscultation Cardiovascular: RRR, no murmur, no edema Gastrointestinal (Abdomen): Percussion/Palpation: + abdomen tender; no guarding and abdomen not rigid Results & Data ([facility]) Vital Signs (Past 12 Hours) Vital Signs Temp Pulse Resp BP Pulse Ox 12/02/19 06:53 36.9 C 93 H 16 150/72 H 94 12/01/19 23:26 36.9 C 95 H 14 130/72 92
[2019-12-02] MEDS: PIPERACILLIN/TAZOBACTAM 3.375 GM in DEXTROSE 5% 100 ML IV SCH ×3 (07:36→23:44)
[2019-12-02] MEDS ORDERED: CALCIUM 600MG + VIT D 400 IU TAB PO SCH (09:00)
[2019-12-02] MEDS ORDERED: ONDANSETRON INJ 2 MG/ML 2 ML VIAL ONE ×2 (09:16→09:38)
[2019-12-02] MEDS ORDERED: DEXAMETHASONE SOD INJ 4 MG/ML VIAL ONE ×2 (09:16→09:38)
[2019-12-02] MEDS ORDERED: PROPOFOL IV EMULSION 10 MG/ML 20 ML VIAL IV ONE ×2 (09:16→09:38)
[2019-12-02] MEDS ORDERED: ROCURONIUM BROMIDE 10 MG/ML 5 ML VIAL IV ONE (09:16)
--- NOTE | 2019-12-02 09:27 | Anesthesiology Consultation ---
Date of Service December 02, 2019 Assessment & Plan (1) Encounter for pre-operative examination: Chart Review Chart Review: Acceptable Risk for Surgery and Patient NOT seen in Pre Admission Testing covid 19 routine prescreening test 12/01/2019 was NEGATIVE. Consults Requested none History Surgery Operation Date: 12/01/19 07:30 Proposed Procedures p Esophagogastroduodenoscopy - Hernandez Lozada MD Operation Date: 12/02/19 07:30 Proposed Procedures p Esophagogastroduodenoscopy - Hernandez Lozada MD s Robotic Laparoscopic Cholecystectomy - Narendra Bragg MD Height/Weight Height: 5 ft 2 in Weight: 65.9 kg Allergies Allergy/AdvReac Type Severity Reaction Status Date / Time lisinopril AdvReac Intermediate ELEVATES Verified 12/01/19 03:16 POTASSIUM LEVELS losartan AdvReac Intermediate ELEVATES Verified 12/01/19 03:16 POTASSIUM LEVELS. Medications Home Medications Medication Instructions Recorded Confirmed Last Taken magnesium oxide 400 mg PO QDD 05/17/19 12/01/19 11/29/19 atorvastatin 10 mg tablet 10 mg PO HS #90 tab 06/13/19 12/01/19 11/29/19 calcium carbonate-vitamin D3 600 2 tab PO QAM tab 06/19/19 12/01/19 11/30/19 mg (1,500 mg)-800 unit tablet insulin aspart U-100 100 unit/mL 0 unit CONTINUOUS SUBCUTANEOUS 06/19/19 12/01/19 11/30/19 subcutaneous solution INFUSION DIRECTED Lactobacillus 1 cap PO BID cap 09/17/19 12/01/19 11/30/19 acidophilus-Bifidobac.animalis 31 billion cell capsule pantoprazole 40 mg tablet,delayed 40 mg PO DAILY PRN tab 09/17/19 12/01/19 Unknown release levothyroxine 100 mcg tablet 100 mcg PO DAILY #90 tab 11/12/19 12/01/19 11/30/19 Lasix 20 mg PO 3XWK 12/01/19 12/01/19 11/28/19 rivaroxaban [Xarelto] 20 mg PO DAILY 12/01/19 12/01/19 11/30/19 Active Medications Generic Name Dose Route Start Last Admin Trade Name Freq PRN Reason Stop Dose Admin Piperacillin Sod/Tazobactam 115 mls @ 28.75 mls/hr 12/01/19 16:00 12/02/19 07:36 Sod 3.375 gm/ Dextrose IV 12/11/19 15:59 28.8 mls/hr Q8H JODI Administration Protocol Sodium Chloride 1,000 mls @ 200 mls/hr 12/01/19 17:00 12/02/19 07:35 Nss 1000ml IV 12/31/19 16:59 200 mls/hr .Q5H JOID Administration Insulin Aspart 0 units 12/01/19 19:30 12/02/19 06:14 Insulin Aspart 100 Units/Ml 3 Ml Pen SC 12/31/19 19:29 Not Given Q6 JODI Levothyroxine Sodium 100 mcg 12/02/19 06:30 12/02/19 06:20 Levothyroxine Sodium 100 Mcg Tablet PO 01/01/20 06:29 Not Given DAILYBB JODI Ondansetron HCl 4 mg 12/01/19 09:32 12/02/19 01:05 Ondansetron Inj 2 Mg/Ml 2 Ml Vial IV 12/31/19 09:31 4 mg Q4H PRN Administration Nausea And Vomiting NPO Date Last Intake of Fluids: 12/01/19 Time Last Intake of Fluids: 23:59 Date Last Intake of Solids: 12/01/19 Time Last Intake of Solids: 23:59 Past Medical History Medical History Anemia hx Breast cancer right Compression fracture of thoracic vertebra Diabetes mellitus type 1 + insulin pump/follows 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 [facility]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 Fingernail avulsion, partial GERD (gastroesophageal reflux disease) diet controlled Shane's thyroiditis Hyperlipidemia Hypertension Hypothyroidism Osteoarthritis Personal history of Helicobacter infection Subungual hematoma Tendonitis Urinary incontinence Exercise / Class Metabolic Activity II 4-5 Yardwork/Stairs/Walk up hill Past Family History Family History Sister Breast cancer Father Cancer Brother Diabetes Brother Diabetes Other No family history of adverse response to anesthesia Denies family history of Ovarian cancer Colorectal cancer Past Surgical History Surgical History History of breast biopsy right History of carpal tunnel release bilateral History of cataract surgery bilateral History of colonoscopy Hx of tonsillectomy S/P adenoidectomy S/P extracapsular cataract extraction S/P thyroid biopsy Past Anesthesia History No Hx of Anesthesia Complications and No Family Hx of Anesthesia Complications History of PONV No Hx of PONV and No Hx of Motion Sickness Social History Smoking Status: Never smoker Do You Dip or Chew Tobacco: No Hx Alcohol Use: No Hx Substance Use: No substance use type: does not use Physical Exam Vital Signs Last Vital Signs Temp 36.9 C 12/02/19 06:53 Pulse 93 H 12/02/19 06:53 Resp 16 12/02/19 06:53 BP 150/72 H 12/02/19 06:53 Pulse Ox 94 12/02/19 06:53 Testing Laboratory Results 12/02/19 05:41 12/02/19 05:41 PT 14.2 Seconds (9.0-12.0) H 12/01/19 10:49 INR 1.4 (0.9-1.1) H 12/01/19 10:49 APTT 31.3 Seconds (21.0-31.0) H 12/02/19 05:41 Urine Color Yellow 12/01/19 05:32 Urine Appearance Clear (Clear) 12/01/19 05:32 Urine pH 7.5 (4.5-7.5) 12/01/19 05:32 Ur Specific [place] 1.015 (1.000-1.030) 12/01/19 05:32 Urine Protein Negative (Negative) 12/01/19 05:32 Urine Glucose (UA) 3+ (Negative) H 12/01/19 05:32 Urine Ketones Negative (Negative) 12/01/19 05:32 Urine Nitrite Positive (Negative) A 12/01/19 05:32 Ur Leukocyte Esterase 1+ (Negative) H 12/01/19 05:32 Urine RBC 0-4 /hpf (0-4) 12/01/19 05:32 Urine WBC >30 /hpf (0-5) H 12/01/19 05:32 Ur Epithelial Cells 5-10 /lpf (0-5) H 12/01/19 05:32 12/02/19 12/02/19 12/02/19 06:12 03:13 01:05 POC Glucose 121 H 121 H 132 H 12/02/19 00:04 POC Glucose 126 H Laboratory Tests 12/02/19 12/02/19 05:41 05:41 WBC 10.20 Hgb 7.9 L Hct 24.6 L Plt Count 326 Sodium 141 Potassium 4.1 Chloride 111 H Carbon Dioxide 24 BUN 15 Creatinine 0.93 Glucose 98 Electrocardiogram Date: 12/01/19 Findings: + NSR @ (82) Normal sinus rhythm Nonspecific ST and T wave abnormality Abnormal ECG When compared with ECG of 04-JUL-2019 08:52, Nonspecific T wave abnormality now evident in Anterior leads
[2019-12-02] MEDS ORDERED: HYDROmorphone INJ 1 MG/ML SYRINGE IV PRN (09:31)
[2019-12-02] MEDS ORDERED: ATROPINE SULFATE 0.1 MG/ML 10ML SYR IV PRN (09:31)
[2019-12-02] MEDS ORDERED: ePHEDrine sulfate 50 MG/ML AMP IV PRN (09:31)
[2019-12-02] MEDS ORDERED: fentaNYL citrate 100 MCG/2 ML VIAL IV PRN (09:31)
[2019-12-02] MEDS ORDERED: ONDANSETRON INJ 2 MG/ML 2 ML VIAL IV PRN (09:31)
[2019-12-02] MEDS ORDERED: GLYCOPYRROLATE 0.2 MG/ML VIAL ONE (09:38)
[2019-12-02] MEDS ORDERED: NEOSTIGMINE METHYLSULFATE 5 MG/5 ML SYR ONE (09:38)
[2019-12-02] MEDS ORDERED: MIDAZOLAM HCL 1 MG/ML 2ML VIAL ONE (09:38)
[2019-12-02] MEDS ORDERED: LIDOCAINE HCL 2% 2 ML VIAL/AMP(20MG/ML) INFIL ONE (09:38)
[2019-12-02] MEDS ORDERED: fentaNYL citrate 100 MCG/2 ML VIAL ONE (09:38)
--- NOTE | 2019-12-02 09:47 | History & Physical Bridge Note ---
Date of Service December 02, 2019 History & Physical Bridge Note I have examined the patient, reviewed the History & Physical and in the interval since the performance of the History & Physical I have noted the following changes of clinical significance: no changes noted
[2019-12-02] MEDS ORDERED: ESMOLOL HCL INJ 10 MG/ML 10ML VIAL IV ONE (10:32)
[2019-12-02] MEDS ORDERED: INDOMETHACIN 50 MG SUPP PR ONE (10:33)
[2019-12-02] MEDS ORDERED: BUPIVACAINE 0.5 % 5 MG/1 ML MPF 30ML VIAL ONE (10:47)
[2019-12-02] MEDS ORDERED: EPINEPHrine INJ 1 MG/ML AMP ONE (10:47)
--- NOTE | 2019-12-02 11:26 | Operative Report ---
Post Operative Report Pre & Post Diagnosis Operation Date: 12/01/19 07:30 <No data on this case meets the specified criteria> Operation Date: 12/02/19 07:30 Pre-Op Diagnosis: ACUTE CHOLECYSTITIS, ACUTE PANCREATITIS Post-Op Diagnosis: ACUTE CHOLECYSTITIS, ACUTE PANCREATITIS I identified the patient and participated in the time-out.: Yes Procedure Operation Date: 12/01/19 07:30 <No data on this case meets the specified criteria> Operation Date: 12/02/19 07:30 Actual Procedures p Endoscopic Retrograde Cholangiopancreatogophy(Not Applicable) - Hernandez Lozada MD s Laparoscopic Cholecystectomy(Not Applicable) - Narendra Bragg MD Surgeon Hernandez Lozada MD Technology Infusion Specialist none Estimated Blood Loss 0 Findings See Below (CBD sludge and stones removed, no hemobilia) Specimens None Description of Procedure ERCP I attest to the content of the Intraoperative Record and any orders documented therein. Any exceptions are noted below.
--- NOTE | 2019-12-02 11:47 | GI REPORT ---
Patient Name: Colleen Franco Procedure Date: 12/02/2019 7:26 AM Date of : 1940 Admit Type: Inpatient Age: 79 Gender: Female Attending MD: Hernandez Lozada MD Procedure: ERCP Providers: Hernandez Lozada MD Referring MD: Rhiannon Jones Md, Narendra Bragg MD Indications: Bile duct stone on Computed Tomogram Scan, Elevated liver enzymes Medicines: General Anesthesia Complications: No immediate complications. Estimated Blood Loss: Estimated blood loss: none. Procedure: Pre-Anesthesia Assessment: - Prior to the procedure, a History and Physical was performed, and patient medications, allergies and sensitivities were reviewed. The patient's tolerance of previous anesthesia was reviewed. - The risks and benefits of the procedure and the sedation options and risks were discussed with the patient. All questions were answered and informed consent was obtained. - Patient identification and proposed procedure were verified prior to the procedure by the physician and the nurse. The procedure was verified in the procedure room. - Pre-procedure physical examination revealed no contraindications to sedation. After obtaining informed consent, the scope was passed under direct vision. Throughout the procedure, the patient's blood pressure, pulse, and oxygen saturations were monitored continuously. The Scope was introduced through the mouth, and advanced to the duodenum and used to inject contrast into the bile duct. The ERCP was accomplished without difficulty. The patient tolerated the procedure well. Findings: The regional truck driver film was normal. The esophagus was successfully intubated under direct vision. The scope was advanced to a normal major papilla in the descending duodenum without detailed examination of the pharynx, larynx and associated structures, and upper GI tract. The upper GI tract was grossly normal. There were multiple clean based cratered ulcers in the duodenal bulb. There was a large side diverticulum in the 2nd portion of the duodenum. The major papilla could not be located with the duodenoscope despite typical scope position on fluoroscopy. The scope was changed to an upper endoscope, the duodenum was irrigated aggressively and blood was cleared. After careful exam, the major papilla was located on the anterior duodenal wall, an endoclip was placed below the papilla for marking. The duodenoscope was then inserted and the endoclip was located. The ventral pancreatic duct was inadvertently cannulated with the short-nosed traction sphincterotome and guidewire without any complications. The wire was kept in place to assist in biliary cannulation. A 0.035 inch straight standard wire was passed into the biliary tree. The Fusion OMNI sphincterotome was passed over the guidewire and the bile duct was then deeply cannulated. Contrast was injected. I personally interpreted the bile duct images. Ductal flow of contrast was adequate. Image quality was adequate. Contrast extended to the main bile duct. Opacification of the main bile duct was successful. The maximum diameter of the ducts was 9 mm. Biliary sphincterotomy was made with a monofilament traction (standard) sphincterotome using ERBE electrocautery. There was no post-sphincterotomy bleeding. The biliary tree was swept with an 11.5 mm balloon starting at the bifurcation. Sludge was swept from the duct. One stone was removed. No stones remained. No Hemobilia seen. One 5 Fr by 9 cm plastic pancreatic stent with a single external pigtail and no internal flaps was placed into the ventral pancreatic duct. Clear fluid flowed through the stent. The stent was in good position. One 10 Fr by 8 cm plastic biliary stent with a single external flap and a single internal flap was placed into the common bile duct. Bile flowed through the stent. The stent was in good position. Impression: - Choledocholithiasis was found. Complete removal was accomplished by biliary sphincterotomy and balloon extraction. - One plastic pancreatic stent was placed into the ventral pancreatic duct to decrease the risk of post ERCP pancreatitis. - One plastic biliary stent was placed into the common bile duct. Recommendation: - Avoid aspirin and nonsteroidal anti-inflammatory medicines for 5 days. - Repeat ERCP in 4 weeks to remove stent. - Use a proton pump inhibitor IV daily for 2 days then change to PO BID dose for 3 months. - May resume Anticoagulation after 3- 4 days from GI standpoint. Hernandez Lozada MD 12/02/2019 11:46:49 AM This report has been signed electronically. Note Initiated On: 12/02/2019 7:26 AM Number of Addenda: 0 I attest to the content of the Intraoperative Record and orders documented therein, exceptions below {[id number]}
--- NOTE | 2019-12-02 12:43 | Post Operative Brief Note ---
Immediate Post Op Note v1 Date of Surgery December 02, 2019 Pre & Post Diagnosis Operation Date: 12/01/19 07:30 <No data on this case meets the specified criteria> Operation Date: 12/02/19 07:30 Pre-Op Diagnosis: ACUTE CHOLECYSTITIS, ACUTE PANCREATITIS Post-Op Diagnosis: ACUTE CHOLECYSTITIS, ACUTE PANCREATITIS I identified the patient and participated in the time-out.: Yes Procedure Operation Date: 12/01/19 07:30 <No data on this case meets the specified criteria> Operation Date: 12/02/19 07:30 Actual Procedures p Endoscopic Retrograde Cholangiopancreatogophy(Not Applicable) - Hernandez Lozada MD s Laparoscopic Cholecystectomy(Not Applicable) - Narendra Bragg MD Surgeon Narendra Bragg MD Photoengraving Photographer none Estimated Blood Loss 40 Findings Consistent with Post-Op Diagnosis
--- NOTE | 2019-12-02 13:32 | Operative Report (OR) ---
DATE OF OPERATION: 12/02/2019 PREOPERATIVE DIAGNOSES: 1. Choledocholithiasis. 2. Acute cholecystitis. POSTOPERATIVE DIAGNOSES: 1. Choledocholithiasis. 2. Acute cholecystitis. PROCEDURE PERFORMED: Laparoscopic cholecystectomy. SURGEON: Narendra Bragg MD. MANAGER TECHNICAL: None. ANESTHESIA: General endotracheal and 0.5% Marcaine with epinephrine local. ESTIMATED BLOOD LOSS: 40 mL. COMPLICATIONS: None. DRAINS: None. SPECIMENS: Gallbladder sent for pathologic evaluation. INDICATION FOR PROCEDURE: This is a 79-year-old female with abrupt onset of acute abdominal pain, was admitted through the ED with an ultrasound showing a gallbladder with signs of cholecystitis along with sludge or small stones. She also had elevated LFTs and will need an ERCP. I talked to her about the risks of the surgery including open procedure, common bile duct injury, bleeding, bile leak, and an open procedure. She understands this and wished to proceed. DESCRIPTION OF PROCEDURE: The patient was taken to the OR and underwent excellent ERCP. When I came in, we had prepped and draped her under normal sterile fashion. She was already under general endotracheal anesthesia. Transverse supraumbilical incision was made. Dissection was taken down to identify anterior fascia. 2-0 Vicryl suture was placed in either side of midline. Midline was incised sharply with a 15 blade. The peritoneal cavity was entered bluntly. A Jose Enrique trocar was then inserted. Good pneumoperitoneum was achieved to 15 mmHg pressure. An 11 subxiphoid and two 5 lateral plate ports were placed in normal fashion. She had an obviously tense gallbladder with acute findings. An aspirator was inserted and we aspirated some bloody bile. This allowed the fundus to be grasped and retracted superiorly. The neck was then grasped and retracted laterally. She had a large amount of inflammatory edema within the wilkinson. Her cystic duct and cystic artery were identified and skeletonized. A medial and lateral window was created in the gallbladder and gallbladder fossa showing these structures going right to the gallbladder. Once this critical view was seen, 3 clips were placed distally in the cystic duct and one proximally and the cystic duct was transected. Two clips were placed proximally in the cystic artery, 1 distally in the cystic artery was transected. There was a posterior branch which was also clipped and ligated. Electrocautery hook was then used to remove the gallbladder from the gallbladder fossa. The gallbladder was brought out for pathologic evaluation. Pneumoperitoneum was reestablished and abdomen was then irrigated out and suctioned clear. There were some raw bleeding areas on Tierra's capsule, which were cauterized and then Surgicel was placed. There was probably a total of 40 mL of blood loss. Once the bleeding was controlled and the abdomen was suctioned out to clear. The ports were removed. Pneumoperitoneum was decompressed. 0 Vicryl was used to close the fascial defect. 0.5% Marcaine with epinephrine local was used to create a local field block. Interrupted 4-0 Vicryl was used to close the skin. Steri-Strips and benzoin were used to force incisions. Sterile dressings were applied. The patient tolerated the procedure well without complication and was sent to postop recovery area for a period of observation and sent to the floor for her care. I attest to the content of the Intraoperative Record and any orders documented therein. Any exception s are noted below.
--- NOTE | 2019-12-02 13:38 | Fluoroscopy Report ---
[place] ERCP biliary ductal HISTORY: 79 years-old Female ERCP COMPARISON: CT abdomen and pelvis 12/01/2019 TECHNIQUE: 20 spot fluoroscopic images of the abdominal right upper quadrant were obtained utilizing 88.8 seconds fluoroscopy time FINDINGS: Endoscope is noted within the duodenum. Cannulation of the common bile duct with balloon sweep. No de finite retained filling defects to suggest choledocholithiasis. Retrograde injection of contrast into the biliary tree. Partially opacified cystic duct.. Contrast extends into the duodenum. Subsequent i mages demonstrate deployment of a common bile duct stent which appears to be in satisfactory position ing. IMPRESSION: Fluoroscopic assistance as above. Please see procedural report for further details. ACT 112: Negative or not required by law. The above report was generated using voice recognition software. It may contain grammatical, syntax o r spelling errors. Electronically signed by: Jeffrey Palacio M.D. 12/02/2019 1:37 PM
[2019-12-02] MEDS ORDERED: OXYCODONE/ACETAMINOPHEN 5mg/325mg TAB PO PRN (13:39)
--- NOTE | 2019-12-02 13:42 | Pharmacy Report ---
Pharmacy Glycemic Short Note 2 - Date of Service December 02, 2019 - Glycemic Short BSG Results (Last 24 hours): 12/01/19 12/01/19 12/02/19 17:53 19:19 00:04 Glucose POC Glucose 249 H 193 H 126 H 12/02/19 12/02/19 12/02/19 01:05 03:13 05:41 Glucose 98 POC Glucose 132 H 121 H 12/02/19 12/02/19 06:12 12:51 Glucose POC Glucose 121 H 173 H ASSESSMENT: * LR is a 79 year old female admitted for acute cholecystitis * Currently NPO - scheduled for laparoscopic cholecystectomy tomorrow morning * Pharmacy consulted evening of 11/30 for persistently high BSGs despite home Novolog pump * BSGs ranging 249-311 mg/dL prior to consult * Will discontinue insulin pump and manage with SC basal/bolus regimen * Will give 12 units of Lantus now at time of pump discontinuation (approx. 80% of basal needs per pump settings) * Conservative Novolog with overnight check this evening 12/01 * Patient transitioned off insulin pump last evening, continues on bolus insulin this AM * Fasting bSG 98 mg/dL - w/in range / plan for surgery today * Will plan to resume home basal insulin with dinner time check * Dexamethasone pulled from omni while patient in OR, anticipate BSGs to rise / will provider tighter CF/CR PLAN FOR INPATIENT GLYCEMIC CONTROL: * Holding home Novolog pump * Basal insulin * Lantus 15 with dinner (equivalent to home basal dose) * Bolus insulin - tighten * NovoLog per scale ACHS or Q6hrs while NPO * Goal Range: Low 110 mg/dL - High 140 mg/dL * Correction Factor: 30 mg/dL/unit * Nutritional / Prandial insulin per carb ratio of 1 unit per 10 grams CHO consumed * 0300 check this evening with same parameters * Please note that the plan above was derived based on current level of insulin resistance and hospital stress. These recommendations are appropriate for inpatient admission only. Plan of care upon discharge will need to be reassessed to avoid potential outpatient hypo/hyperglycemia. Thank you.
[2019-12-02] MEDS: OXYCODONE/ACETAMINOPHEN 5mg/325mg TAB PO PRN (13:55)
[2019-12-02] MEDS ORDERED: Nursing to Pharmacy Communication SCH (14:15)
[2019-12-02] MEDS ORDERED: PANTOPRAZOLE BOLUS/DRIP 1 EA IV STA (14:32)
--- NOTE | 2019-12-02 14:34 | Hospitalist Progress Note ---
Date of Service December 02, 2019 Assessment & Plan (1) Acute pancreatitis: Presented with epigastric abd pain and found to have acute pancreatitis on CT, lipase 6000 CT abd/pel with possible pancreatitis, with gallbladder distension, sludge and pericholecystic fluid, suspect acute madelyn RUQ US with :The gallbladder is distended with mild wall thickening. There is no shadowing cholelithiasis or pericholecystic fluid. The gallbladder however is diffusely filled with complex avascular material suggestive of sludge versus blood products. Additionally, the nondilated common bile duct appears to be filled with nonshadowing debris. Correlate with clinical presentation and laboratory analysis to exclude acute cholecystitis. LFTs quite elevated With acute calculous cholecystitis with hemobilia and acute gallstone pancreatitis Suspicious for hemobilia, in setting of chronic anticoagulation -admitted to med/surg -anticoagulation held -started on IVFs, pain control -consulted GI and Surgery-> recommended ERCP in conjunction with lap madelyn which was performed on 12/01 ERCP with sludge and stone removed from CBD after sphincterotomy, 2 plastic stents placed Lap madelyn performed and bloody bile aspirated, GB removed -lipase trending downward--> continue IVFs but reduce to 100mL/hr LR -will need repeat ERCP in 4 weeks for stent removal -avoid ASA/NSAIDs for 5 days - until 12/06 -ok to restart Xarelto in 3-4 days post ERCP as per GI -follow LFTs, lipase, BMP, CBC -continue IV ZOsyn -advanced diet to clears as per SUrgery (2) Choledocholithiasis: as above, now s/p ERCP with stents in place (3) Acute cholecystitis: as above (4) Duodenal ulcer: Noted to have multiple clean-based ulcers, nonbleeding, in duodenum on ERCP -GI recommends PPI gtt x 24 hrs then PPI IV bid x 2 days then po bid Protonix on discharge -follow CBC -check H. pylori stool ag (5) Elevated LFTs: Significantly elevated AST and ALT, Alk phos, normal TBili associated with choledocholithiasis and hemobilia -should improve now s/p ERCP and lap madelyn -follow LFTs in AM (6) Hypomagnesemia: Mag low at 1.6 -replace with Mg sulfate 2 GM iv follow level in AM (7) Hypertension: previously on amlodipine 2.5mg daily but not sure if still on this recently? BPs mildly elevated here -no treatment for now follow bP (8) Diabetes mellitus type 1: -dc home insulin pump for hyperglycemia in the 300s on admission -Pharmacy consulted Mata and Novopreeti for now and eventually transition back to home insulin pump (9) Hx of deep venous thrombosis: -History of such in August 2019, had repeat Dopplers ultrasound in October 2019 which showed no DVT. - patient has been on Xarelto 20 mg daily on admission -did not give heparin drip as per GI as it seems that she is possibly bleeding into her gallbladder on imaging -HOLD Xarelto until 3-4 days post-ERCP as per GI -SCDs in place (10) Lung nodule: On CT Abd/pel: "There are 2 4 mm solid nodules of the right lower lobe. There are a few scattered solid nodules of the left lower lobe also present measuring up to 3 mm. These appear unchanged from comparison" follow as outpt (11) Hypercholesteremia: -Hold atorvastatin for elevated LFTs (12) Osteoporosis: -Hold home vitamin D and calcium supplementation (13) Infiltrating ductal carcinoma of right breast: - G3, ER/MA neg, Her2 3+, initially diagnosed 05/09/19 who recently completed 6 cycles of neoadjuvant chemo with docetaxel + carboplatin + trastuzumab (TCH) + pertuzumab (started 06/25/19) on November 04/2020 - Planned mastectomy on 12/[address] [place] [address] Burdick. Was supposed to hold xarelto for 5d prior to this surgery. However, Surgery here now recommends pushing back her mastectomy Pt to contact her Surgeon's office on Tuesday to let them know (14) Hypothyroidism: -Continue levothyroxine 100 mcg daily -TSH was mildly elevated a few months ago Would not recheck now in the middle of an acute illness (15) DVT prophylaxis: No anticoagulation given hemorrhage into gallbladder and now with biliary and pancreatic duct stents in place - restart anticoagulation in 3 days given high risk of VTE SCDs CODE: Full code Dispo: continued stay Admission and Anticipated Discharge Date Admission Date: December 01, 2019 Subjective Pt just returned from ERCP and lap madelyn. I discussed case with GI. Is having some abd pain, just took po pain meds. No CP or SOB. Review of Systems Review of Systems: All systems reviewed & are unremarkable except as noted in HPI & below Physical Exam Constitutional: WD/WN, vitals as above (alopecia) Eyes: + anicteric sclerae Neck: trachea midline, no thyromegaly Respiratory: normal respiratory effort, lungs clear to auscultation Cardiovascular: RRR, no murmur, no edema Chest (Breasts): Chest: normal inspection of chest Gastrointestinal (Abdomen): Inspection/Auscultation: + hypoactive bowel sounds; + abdomen abnormal to inspection (dressings in place over abdomen) and abdomen not distended Percussion/Palpation: + abdomen tender (at incision sites) and abdomen soft; no guarding and abdomen not rigid Musculoskeletal: Extremities: extremities normal to inspection; no cyanosis and no clubbing Skin: no rashes, warm and dry Neurologic: moves all extremities and awake; no focal motor deficits Psychiatric: A+Ox3, euthymic affect Lymphatic: no lymphedema Results & Data Results & Data ([facility]) Vital Signs (Past 12 Hours) Vital Signs Temp Pulse Pulse Resp BP Pulse Ox 12/02/19 14:10 36.3 C L 73 16 169/73 H 92 12/02/19 13:40 36.6 C 72 18 169/81 H 95 12/02/19 13:30 75 16 162/68 H 78 L 12/02/19 13:20 36.2 C L 77 16 176/71 H 95 12/02/19 13:10 78 16 174/59 H 100 12/02/19 13:00 76 12 179/75 H 100 12/02/19 12:50 36.2 C L 88 18 155/111 H 100 12/02/19 06:53 36.9 C 93 H 16 150/72 H 94 Laboratory Results 12/02/19 12/02/19 12/02/19 Range/Units 13:49 12:51 10:04 WBC (4.8-10.8) K/uL RBC (4.2-5.4) M/uL Hgb (12.0-16.0) g/dL Hct (37-47) % MCV (80-100) fL MCH (25-34) pg MCHC (32-36) g/dL RDW Std Deviation (36.4-46.3) fL RDW Coeff of Mikayla (11.5-14.5) % Plt Count (130-400) K/uL MPV (7.4-10.4) fL APTT (21.0-31.0) Seconds PTT Ratio Sodium (136-145) mmol/L Potassium (3.5-5.1) mmol/L Chloride (98-107) mmol/L Carbon Dioxide (21-32) mmol/L Anion Gap (3-11) BUN (7-18) mg/dl Creatinine (0.6-1.2) mg/dl Est Cr Clr Drug Dosing ml/min Est GFR ( Amer) Est GFR (Non-Af Amer) BUN/Creatinine Ratio (-20) Glucose (70-99) mg/dl POC Glucose 189 H 173 H (70-99) mg/dl Estimat Average Glucose Hemoglobin A1c Calcium (8.5-10.1) mg/dl Magnesium (1.8-2.4) mg/dl Total Bilirubin (0.2-1) mg/dl Direct Bilirubin (0-0.2) mg/dl AST (15-37) U/L ALT (12-78) U/L Alkaline Phosphatase (45-117) U/L Total Protein (6.4-8.2) gm/dl Albumin (3.4-5.0) gm/dl Lipase (73-393) U/L Blood Type O Positive Blood Type Recheck Antibody Screen NEGATIVE 12/02/19 12/02/19 12/02/19 Range/Units 06:12 05:41 05:41 WBC (4.8-10.8) K/uL RBC (4.2-5.4) M/uL Hgb (12.0-16.0) g/dL Hct (37-47) % MCV (80-100) fL MCH (25-34) pg MCHC (32-36) g/dL RDW Std Deviation (36.4-46.3) fL RDW Coeff of Mikayla (11.5-14.5) % Plt Count (130-400) K/uL MPV (7.4-10.4) fL APTT (21.0-31.0) Seconds PTT Ratio Sodium (136-145) mmol/L Potassium (3.5-5.1) mmol/L Chloride (98-107) mmol/L Carbon Dioxide (21-32) mmol/L Anion Gap (3-11) BUN (7-18) mg/dl Creatinine (0.6-1.2) mg/dl Est Cr Clr Drug Dosing ml/min Est GFR ( Amer) Est GFR (Non-Af Amer) BUN/Creatinine Ratio (10-20) Glucose (70-99) mg/dl POC Glucose 121 H (70-99) mg/dl Estimat Average Glucose Pending Hemoglobin A1c Pending Calcium (8.5-10.1) mg/dl Magnesium (1.8-2.4) mg/dl Total Bilirubin (0.2-1) mg/dl Direct Bilirubin (0-0.2) mg/dl AST (15-37) U/L ALT (12-78) U/L Alkaline Phosphatase (45-117) U/L Total Protein (6.4-8.2) gm/dl Albumin (3.4-5.0) gm/dl Lipase (73-393) U/L Blood Type Blood Type Recheck O Positive Antibody Screen 12/02/19 12/02/19 12/02/19 Range/Units 05:41 05:41 05:41 WBC 10.20 (4.8-10.8) K/uL RBC 2.93 L (4.2-5.4) M/uL Hgb 7.9 L (12.0-16.0) g/dL Hct 24.6 L (37-47) % MCV 84.0 (80-100) fL MCH 27.0 (25-34) pg MCHC 32.1 (32-36) g/dL RDW Std Deviation 47.9 H (36.4-46.3) fL RDW Coeff of Mikayla 15.4 H (11.5-14.5) % Plt Count 326 (130-400) K/uL MPV 9.4 (7.4-10.4) fL APTT 31.3 H (21.0-31.0) Seconds PTT Ratio 1.1 Sodium 141 (136-145) mmol/L Potassium 4.1 (3.5-5.1) mmol/L Chloride 111 H (98-107) mmol/L Carbon Dioxide 24 (21-32) mmol/L Anion Gap 6.0 (3-11) BUN 15 (7-18) mg/dl Creatinine 0.93 (0.6-1.2) mg/dl Est Cr Clr Drug Dosing 43.7 ml/min Est GFR ( Amer) 67.7 Est GFR (Non-Af Amer) 58.5 BUN/Creatinine Ratio 16.3 (10-20) Glucose 98 (70-99) mg/dl POC Glucose (70-99) mg/dl Estimat Average Glucose Hemoglobin A1c Calcium 7.8 L (8.5-10.1) mg/dl Magnesium 1.6 L (1.8-2.4) mg/dl Total Bilirubin 2.2 H D (0.2-1) mg/dl Direct Bilirubin 1.7 H (0-0.2) mg/dl AST 998 H (15-37) U/L ALT 682 H (12-78) U/L Alkaline Phosphatase 367 H (45-117) U/L Total Protein 4.9 L (6.4-8.2) gm/dl Albumin 2.2 L (3.4-5.0) gm/dl Lipase 799 H (73-393) U/L Blood Type Blood Type Recheck Antibody Screen 12/02/19 12/02/19 12/02/19 Range/Units 03:13 01:05 00:04 WBC (4.8-10.8) K/uL RBC (4.2-5.4) M/uL Hgb (12.0-16.0) g/dL Hct (37-47) % MCV (80-100) fL MCH (25-34) pg MCHC (32-36) g/dL RDW Std Deviation (36.4-46.3) fL RDW Coeff of Mikayla (11.5-14.5) % Plt Count (130-400) K/uL MPV (7.4-10.4) fL APTT (21.0-31.0) Seconds PTT Ratio Sodium (136-145) mmol/L Potassium (3.5-5.1) mmol/L Chloride (98-107) mmol/L Carbon Dioxide (21-32) mmol/L Anion Gap (3-11) BUN (7-18) mg/dl Creatinine (0.6-1.2) mg/dl Est Cr Clr Drug Dosing ml/min Est GFR ( Amer) Est GFR (Non-Af Amer) BUN/Creatinine Ratio (10-20) Glucose (70-99) mg/dl POC Glucose 121 H 132 H 126 H (70-99) mg/dl Estimat Average Glucose Hemoglobin A1c Calcium (8.5-10.1) mg/dl Magnesium (1.8-2.4) mg/dl Total Bilirubin (0.2-1) mg/dl Direct Bilirubin (0-0.2) mg/dl AST (15-37) U/L ALT (12-78) U/L Alkaline Phosphatase (45-117) U/L Total Protein (6.4-8.2) gm/dl Albumin (3.4-5.0) gm/dl Lipase (73-393) U/L Blood Type Blood Type Recheck Antibody Screen 12/01/19 12/01/19 Range/Units 19:19 17:53 WBC (4.8-10.8) K/uL RBC (4.2-5.4) M/uL Hgb (12.0-16.0) g/dL Hct (37-47) % MCV (80-100) fL MCH (25-34) pg MCHC (32-36) g/dL RDW Std Deviation (36.4-46.3) fL RDW Coeff of Mikayla (11.5-14.5) % Plt Count (130-400) K/uL MPV (7.4-10.4) fL APTT (21.0-31.0) Seconds PTT Ratio Sodium (136-145) mmol/L Potassium (3.5-5.1) mmol/L Chloride (98-107) mmol/L Carbon Dioxide (21-32) mmol/L Anion Gap (3-11) BUN (7-18) mg/dl Creatinine (0.6-1.2) mg/dl Est Cr Clr Drug Dosing ml/min Est GFR ( Amer) Est GFR (Non-Af Amer) BUN/Creatinine Ratio (10-20) Glucose (70-99) mg/dl POC Glucose 193 H 249 H (70-99) mg/dl Estimat Average Glucose Hemoglobin A1c Calcium (8.5-10.1) mg/dl Magnesium (1.8-2.4) mg/dl Total Bilirubin (0.2-1) mg/dl Direct Bilirubin (0-0.2) mg/dl AST (15-37) U/L ALT (12-78) U/L Alkaline Phosphatase (45-117) U/L Total Protein (6.4-8.2) gm/dl Albumin (3.4-5.0) gm/dl Lipase (73-393) U/L Blood Type Blood Type Recheck Antibody Screen PG Care Time/CCT Total # of Minutes Spent Total Time Spent with Patient: Total time spent is greater than 50% in coordination of care (as documented) at patient's floor/unit and/or counseling patient: Coding Level of Care Code 91363 Subseq Hosp Care Lvl 3 Diagnoses Acute pancreatitis K85.90 Acute pancreatitis complication: unspecified Pancreatitis type: unspecified pancreatitis type Choledocholithiasis K80.50 Acute cholecystitis K81.0 Duodenal ulcer K26.9 Elevated LFTs R79.89 Hypomagnesemia E83.42 Hypertension I10 Diabetes mellitus type 1 E10.9 Hx of deep venous thrombosis Z86.718 Lung nodule R91.1 Hypercholesteremia E78.00 Osteoporosis M81.0 Infiltrating ductal carcinoma of right breast C50.911 Hypothyroidism E03.9 DVT prophylaxis Z29.9 (1) Acute pancreatitis Acute pancreatitis complication: unspecified Pancreatitis type: unspecified pancreatitis type Qualified Code(s): K85.90 - Acute pancreatitis without necrosis or infection, unspecified
[2019-12-02] MEDS: MAGNESIUM SULFATE / D5W 1 GM/100 ML BAG IV SCH ×2 (14:41→16:30)
[2019-12-02] MEDS ORDERED: PANTOprazole 80 MG in DEXTROSE 5% 100 ML IV ONE (14:45)
[2019-12-02] MEDS ORDERED: INSULIN GLARGINE SOLOSTAR 100 UNITS/ML 3 ML PEN SC ONE (15:15)
--- NOTE | 2019-12-02 15:43 | Anesthesiology Progress Note ---
Date of Service December 02, 2019 Anesthesia Post Procedure Vital Signs Vital Signs: Temp Pulse Pulse Resp BP Pulse Ox 12/02/19 14:40 36.5 C 84 16 155/78 H 92 12/02/19 14:10 36.3 C L 73 16 169/73 H 92 12/02/19 13:40 36.6 C 72 18 169/81 H 95 12/02/19 13:30 75 16 162/68 H 78 L 12/02/19 13:20 36.2 C L 77 16 176/71 H 95 12/02/19 13:10 78 16 174/59 H 100 12/02/19 13:00 76 12 179/75 H 100 12/02/19 12:50 36.2 C L 88 18 155/111 H 100 12/02/19 06:53 36.9 C 93 H 16 150/72 H 94 12/01/19 23:26 36.9 C 95 H 14 130/72 92 Pain Intensity Abdomen: Pain Intensity: 10 Transfer of Care Handoff Completed per policy Notes Mental Status: alert / awake / arousable and participated in evaluation Patient Amnestic to Procedure: Yes Nausea / Vomiting: adequately controlled Pain: adequately controlled Airway Patency, RR, SpO2: stable & adequate BP & HR: stable & adequate Hydration State: stable & adequate Anesthetic Complications: no major complications apparent and Pt Satisfied with anesthetic care
[2019-12-02] MEDS ORDERED: INSULIN GLARGINE SOLOSTAR 100 UNITS/ML 3 ML PEN SC SCH (16:30)
--- NOTE | 2019-12-02 16:32 | Electrocardiogram Report ---
Test Reason : Blood Pressure : / mmHG Vent. Rate : 082 BPM Atrial Rate : 082 BPM P-R Int : 134 ms QRS Dur : 064 ms QT Int : 364 ms P-R-T Axes : 009 039 045 degrees QTc Int : 425 ms Poor data quality, interpretation may be adversely affected Normal sinus rhythm When compared with ECG of 04-JUL-2019 08:52, No significant change Confirmed by Luis Alcaraz ([id number]) on 12/02/2019 4:32:24 PM Referred By: REFERRED SELF Confirmed By:Luis Alcaraz
[2019-12-02] MEDS: PANTOprazole 40 MG in DEXTROSE 5% 100 ML IV SCH ×2 (16:54→20:41)
[2019-12-03] MEDS: INSULIN ASPART 100 UNITS/ML 3 ML PEN SC SCH ×6 (00:26→21:08)
[2019-12-03] MEDS: PANTOprazole 40 MG in DEXTROSE 5% 100 ML IV SCH ×3 (00:56→11:00)
[2019-12-03] MEDS: LEVOTHYROXINE SODIUM 100 MCG TABLET PO SCH (05:41)
[2019-12-03 05:45] LABS: Estimated Average Glucose 197 mg/dl; Hemoglobin A1C 8.5 % (4.5-5.6)
[2019-12-03 06:10] LABS: Hematocrit (blood only) 21.1 % (37-47); Hemoglobin 6.8 g/dL (12.0-16.0); Mean Corpuscular Hemoglobin 27.2 pg (25-34); Mean Corpuscular Hgb Conc 32.2 g/dL (32-36); Mean Corpuscular Volume 84.4 fL (80-100); Mean Platelet Volume 9.3 fL (7.4-10.4); Platelet Count 267 K/uL (130-400); RDW Coefficient of Variation 15.5 % (11.5-14.5); RDW Standard Deviation 48.1 fL (36.4-46.3)
[2019-12-03] MEDS ORDERED: SODIUM CHLORIDE 0.9% 250 ML IV PRN (06:23)
--- NOTE | 2019-12-03 06:26 | Communication Note ---
Date of Service: December 03, 2019 Hgb downtrending x48 hours, acute hgb drop to 6.8 from 7.9 overnight. Pt without signs of bleeding, but feeling globally weak. x1u pRBC ordered for transfusion, pt consented/consent on file.
[2019-12-03 06:29] LABS: Basophils # (auto) 0.01 K/uL (0-0.2); Basophils % (auto) 0.1 %; Eosinophils % (auto) 1.1 %; Immature Granulocytes # (auto) 0.02 K/uL (0.00-0.02); Immature Granulocytes % (auto) 0.2 %; Lymphocytes # (auto) 1.67 K/uL (1.2-3.4); Lymphocytes % (auto) 17.8 %; Monocytes % (auto) 13.8 %; Ovalocytes 1+
[2019-12-03 06:48] LABS: Albumin Level 1.9 gm/dl (3.4-5.0); BUN Creatinine Ratio 14.5 (10-20); Bilirubin Direct 0.7 mg/dl (0-0.2); Calcium 7.3 mg/dl (8.5-10.1); Creatinine Clr Calc Pharmacy 46.2 ml/min; Est GFR (African American) 72.4; Est GFR (Non-African American) 62.5; Magnesium 1.8 mg/dl (1.8-2.4)
[2019-12-03 06:51] LABS: Bilirubin,Total 1.3 mg/dl (0.2-1); Total Protein 4.4 gm/dl (6.4-8.2)
[2019-12-03] MEDS: OXYCODONE/ACETAMINOPHEN 5mg/325mg TAB PO PRN ×3 (07:50→20:04)
[2019-12-03] MEDS ORDERED: FUROSEMIDE 20 MG TAB PO SCH (09:00)
[2019-12-03] MEDS ORDERED: RIVAROXABAN 20 MG TAB PO SCH (09:00)
--- NOTE | 2019-12-03 10:08 | Pharmacy Report ---
Glycemic Control Progress Note - Date of Service December 03, 2019 - Scope Glycemic Pharmacist consulted for glycemic control to write orders per [facility] inpatient glycemic control protocol. - Objective Accuchecks BSG(last 24 hours):: 12/02/19 12/02/19 12/02/19 05:41 12:51 13:49 Glucose 98 POC Glucose 173 H 189 H 12/02/19 12/02/19 12/02/19 17:19 20:51 23:44 Glucose POC Glucose 194 H 193 H 111 H 12/03/19 12/03/19 12/03/19 03:51 05:44 08:32 Glucose 84 POC Glucose 96 88 HbA1c:: Hemoglobin A1c 8.5 % (4.5-5.6) H 12/02/19 05:41 - Recent Pertinent Medications The patient is currently receiving: * Basal insulin: Lantus 15 units at dinner * Correctional Insulin: Novolog Correction per scale ACHS Goal Range: Low 110 mg/dL - High 140 mg/dL Correction Factor: 30 mg/dL/unit * Prandial insulin: Per carb ratio of 1 unit per 10 grams CHO consumed - Outpatient Anti-Diabetic Meds Novolog pump (TDD 35-45 units/day) - Assessment & Plan ASSESSMENT: * See progress note from 12/02/2019 for more background info, in short: * Pt receiving SQ basal bolus insulin regimen for hyperglycemia secondary to baseline DM (outpatient regimen on hold). Patient is POD for cholecystectomy. She received a blood transfusion today-- she is being transitioned off Protonix drip to Protonix pushes. * Patient is currently receiving an average of 23 units of insulin per day * 15 units of basal insulin * 8 units of prandial/correctional insulin * BSGs ranging 111 - 194 mg/dl over the past 24hrs * Changes needed to insulin regimen: * AM Fasting BSG = 88 mg/dl. This is below goal range for patient based on inpatient targets and co-morbidities. This is most likely due to decreased PO intake. Will reduce basal by 1 unit for now in case of continued decreased PO intake. * Post-prandial BSGs are in range therefore no changes needed to CF/CR. * Total daily dose = ? units. PO intake uncertain at this point. PLAN FOR INPATIENT GLYCEMIC CONTROL: * Decreasing Lantus to 14 units SQ with dinner tonight * Continuing correction factor of 30 mg/dl/unit * Continuing carb ratio of 1 unit per 10 grams CHO consumed * Continuing goal range of Low 110 mg/dL - High 140 mg/dL RECOMMENDATIONS FOR DISCHARGE: * Recommend patient to continue to follow-up with [facility] Endocrinology to make adjustments to her insulin pump. Thank you.
--- NOTE | 2019-12-03 10:26 | Hospitalist Progress Note ---
Date of Service December 03, 2019 Assessment & Plan (1) Acute pancreatitis: With acute calculous cholecystitis with hemobilia and acute gallstone pancreatitis Presented with epigastric abd pain and found to have acute pancreatitis on CT, lipase [address] abd/pel with possible pancreatitis, with gallbladder distension, sludge and pericholecystic fluid, suspect acute madelyn RUQ US with : - acute cholecystitis with complex avascular material suggestive of sludge versus blood products. LFTs quite elevated on admission and trending down - continue to hold anticoagulation -started on IVFs, pain control -consulted GI and Surgery-> ERCP in conjunction with lap madelyn which was performed on 12/01 ERCP with sludge and stone removed from CBD after sphincterotomy, 2 plastic stents placed Lap madelyn performed and bloody bile aspirated, GB removed -Continue IVFs at 100mL/hr LR -will need repeat ERCP in 4 weeks for stent removal -avoid ASA/NSAIDs for 5 days - until 12/06 -Hold anticoagulation - may be able restart Xarelto in 3-4 days post ERCP as per GI -follow LFTs, lipase, BMP, CBC -continue IV Zosyn -Continue liquid diet today per GI (2) Choledocholithiasis: as above, now s/p ERCP with stents in place (3) Blood loss anemia: Hgb 6.8 this morning - transfused 1 unit prbcs Discussed with surgery - do not recommend re-imaging as belly is benign - continue to follow hgb No stools to indicate GI loss Hemodynamically stable Repeat at noon and this evening stable at 8. Will recheck am (4) Acute cholecystitis: as above (5) Duodenal ulcer: Noted to have multiple clean-based ulcers, nonbleeding, in duodenum on ERCP -GI recommends PPI IV bid x 2 days then po bid Protonix on discharge -follow CBC -check H. pylori stool ag (6) Elevated LFTs: Significantly elevated AST and ALT, Alk phos, normal TBili associated with choledocholithiasis and hemobilia -should improve now s/p ERCP and lap madelyn -Continue to follow LFTs (7) Hypomagnesemia: Mag low at 1.6 -replace with Mg sulfate 2 GM iv follow level in AM (8) Hypertension: previously on amlodipine 2.5mg daily but not sure if still on this recently? BPs mildly elevated here -no treatment for now follow bP (9) Diabetes mellitus type 1: -dc home insulin pump for hyperglycemia in the 300s on admission -Pharmacy consulted Lantus and Novolog for now and eventually transition back to home insulin pump (10) Hx of deep venous thrombosis: -History of such in August 2019, had repeat Dopplers ultrasound in October 2019 which showed no DVT. Repeated 12/02 - no dvts bilaterally - patient had been on Xarelto 20 mg daily on admission -HOLD Xarelto until 3-4 days post-ERCP as per GI - will need to reassess after hgb stabilizes -SCDs in place (11) Lung nodule: On CT Abd/pel: "There are 2 4 mm solid nodules of the right lower lobe. There are a few scattered solid nodules of the left lower lobe also present measuring up to 3 mm. These appear unchanged from comparison" follow as outpt (12) Hypercholesteremia: -Hold atorvastatin for elevated LFTs (13) Osteoporosis: -Hold home vitamin D and calcium supplementation (14) Infiltrating ductal carcinoma of right breast: - G3, ER/OK neg, Her2 3+, initially diagnosed 05/09/19 who recently completed 6 cycles of neoadjuvant chemo with docetaxel + carboplatin + trastuzumab (TCH) + pertuzumab (started 06/25/19) on November 04/2020 - Planned mastectomy on 12/[address] [place] [address] Burdick. Was supposed to hold xarelto for 5d prior to this surgery. However, Surgery here now recommends pushing back her mastectomy Pt to contact her Surgeon's office to let them know (15) Hypothyroidism: -Continue levothyroxine 100 mcg daily -TSH was mildly elevated a few months ago Would not recheck now in the middle of an acute illness (16) DVT prophylaxis: No anticoagulation given hemorrhage into gallbladder and now with biliary and pancreatic duct stents in place and decreased hgb today - restart anticoagulation in 3 days given high risk of VTE SCDs CODE: Full code Dispo: continued stay Admission and Anticipated Discharge Date Admission Date: December 01, 2019 Subjective Ms Franco is feeling fairly well today. No abdominal pain except some soreness around the incision site. ROS Constitutional: no chills, aches, sweats or fever Respiratory: no sob,cough, sputum, or wheezing Cardiac: no chest pain, palpitations, edema, orthopnea or lightheadedness GI: no abdominal pain, nausea, vomiting, diarrhea or constipation : no dysuria or hesitancy Extremities: no joint pain or weakness Skin: no rash All other systems reviewed and negative Physical Exam Physical Exam: General: no distress Eyes: normal inspection, PERLL Respiratory: chest non tender, clear to auscultation, normal breath sounds, no respiratory distress, no accessory muscle use Cardiac: regular rate and rhythm, no rub or gallop, no murmur, no edema, no jvd GI/: active bowel sounds, no abd pain or tenderness, soft, non distended Extremities: normal range of motion, normal strength, non tender Neuro/Psych: alert and oriented x 3, normal mood and affect Skin: normal color, dry Results & Data Results & Data ([facility]) Vital Signs (Past 12 Hours) Vital Signs Temp Pulse Pulse Resp BP BP Pulse Ox 12/03/19 09:45 36.8 C 75 18 128/68 92 12/03/19 09:44 36.8 C 75 18 128/68 92 12/03/19 09:15 37.1 C 93 H 18 130/58 L 92 12/03/19 08:29 37.0 C 93 H 18 134/72 92 12/03/19 08:25 37 C 89 18 160/63 H 92 12/03/19 08:10 36.8 C 92 H 18 166/73 H 94 12/03/19 03:54 36.9 C 96 H 18 128/68 94 12/02/19 23:05 36.7 C 91 H 16 101/55 L 94 PG Care Time/CCT Total # of Minutes Spent Total Time Spent with Patient: Total time spent is greater than 50% in coordination of care (as documented) at patient's floor/unit and/or counseling patient: Coding Level of Care Code 34936 Subseq Hosp Care Lvl 3 Diagnoses Acute pancreatitis K85.90 Acute pancreatitis complication: unspecified Pancreatitis type: unspecified pancreatitis type Choledocholithiasis K80.50 Blood loss anemia D50.0 Acute cholecystitis K81.0 Duodenal ulcer K26.9 Elevated LFTs R79.89 Hypomagnesemia E83.42 Hypertension I10 Diabetes mellitus type 1 E10.9 Hx of deep venous thrombosis Z86.718 Lung nodule R91.1 Hypercholesteremia E78.00 Osteoporosis M81.0 Infiltrating ductal carcinoma of right breast C50.911 Hypothyroidism E03.9 DVT prophylaxis Z29.9 (1) Acute pancreatitis Acute pancreatitis complication: unspecified Pancreatitis type: unspecified pancreatitis type Qualified Code(s): K85.90 - Acute pancreatitis without necrosis or infection, unspecified
--- NOTE | 2019-12-03 11:02 | Gastroenterology Progress Note ---
Date of Service December 03, 2019 Assessment & Plan (1) Elevated LFTs: S/P ERCP and CCY, LFTs trending down, decrease HGB overnight without BUN elevaitn of black/bloody stools Would continue liquids today Trend HGB Monitor and document stools Transfuse PRN Avoid aspirin and nonsteroidal anti-inflammatory medicines for 5 days. Repeat ERCP in 4 weeks to remove stent. Use a proton pump inhibitor IV daily for 2 days then change to PO BID dose for 3 months. May resume Anticoagulation after 3- 4 days standpoint if HGB stable Admission and Anticipated Discharge Date Admission Date: December 01, 2019 Supervising Physician Co-Signing Physician Notes ih radha seen and examined the patient with SHIVA Cabrera whose note reflects our findings and plan. s/p ERCP. Feeling ok. LFTs improving. Subjective S/P CCY and ERCP Slight drop in HGB this AM No bun elevation No black or bloody stools Clinically feeling well LFts trending down Review of Systems Constitutional: no fever and no chills Respiratory: no cough and no dyspnea Cardiovascular: no chest pain and no dyspnea Gastrointestinal: no abdominal pain and no blood in stools Physical Exam Constitutional: well developed and well nourished; no acute distress Neck: trachea midline Respiratory: normal respiratory effort; no respiratory distress Gastrointestinal (Abdomen): normal bowel sounds, soft, nontender, no hepatosplenomegaly Results & Data ([facility]) Vital Signs (Past 12 Hours) Vital Signs Temp Pulse Pulse Resp BP BP Pulse Ox 12/03/19 10:45 36.7 C 93 H 18 105/57 L 93 12/03/19 09:45 36.8 C 75 18 128/68 92 12/03/19 09:44 36.8 C 75 18 128/68 92 12/03/19 09:15 37.1 C 93 H 18 130/58 L 92 12/03/19 08:29 37.0 C 93 H 18 134/72 92 12/03/19 08:25 37 C 89 18 160/63 H 92 12/03/19 08:10 36.8 C 92 H 18 166/73 H 94 12/03/19 03:54 36.9 C 96 H 18 128/68 94 12/02/19 23:05 36.7 C 91 H 16 101/55 L 94 Laboratory Results 08/12/03/19 12/03/19 Range/Units 08:32 05:44 05:44 WBC 9.40 (4.8-10.8) K/uL RBC 2.50 L (4.2-5.4) M/uL Hgb 6.8 L* (12.0-16.0) g/dL Hct 21.1 L (37-47) % MCV 84.4 (80-100) fL MCH 27.2 (25-34) pg MCHC 32.2 (32-36) g/dL RDW Std Deviation 48.1 H (36.4-46.3) fL RDW Coeff of Mikayla 15.5 H (11.5-14.5) % Plt Count 267 (130-400) K/uL MPV 9.3 (7.4-10.4) fL Immature Gran % (Auto) 0.2 % Neut % (Auto) 67.0 % Lymph % (Auto) 17.8 % [place] % (Auto) 13.8 % Eos % (Auto) 1.1 % Baso % (Auto) 0.1 % Neut # (Auto) 6.30 (1.4-6.5) K/uL Lymph # (Auto) 1.67 (1.2-3.4) K/uL [place] # (Auto) 1.30 H (0.11-0.59) K/uL Eos # (Auto) 0.10 (0-0.5) K/uL Baso # (Auto) 0.01 (0-0.2) K/uL Immature Gran # (Auto) 0.02 (0.00-0.02) K/uL Ovalocytes 1+ Sodium 139 (136-145) mmol/L Potassium 4.0 (3.5-5.1) mmol/L Chloride 111 H (98-107) mmol/L Carbon Dioxide 22 (21-32) mmol/L Anion Gap 6.0 (3-11) BUN 13 (7-18) mg/dl Creatinine 0.88 (0.6-1.2) mg/dl Est Cr Clr Drug Dosing 46.2 ml/min Est GFR ( Amer) 72.4 Est GFR (Non-Af Amer) 62.5 BUN/Creatinine Ratio 14.5 (10-20) Glucose 84 (70-99) mg/dl POC Glucose 88 (70-99) mg/dl Estimat Average Glucose mg/dl Hemoglobin A1c (4.5-5.6) % Calcium 7.3 L (8.5-10.1) mg/dl Magnesium 1.8 (1.8-2.4) mg/dl Total Bilirubin 1.3 H (0.2-1) mg/dl Direct Bilirubin 0.7 H D (0-0.2) mg/dl AST 435 H (15-37) U/L ALT 436 H (12-78) U/L Alkaline Phosphatase 323 H (45-117) U/L Total Protein 4.4 L (6.4-8.2) gm/dl Albumin 1.9 L (3.4-5.0) gm/dl Lipase (73-393) U/L Blood Type Blood Type Recheck Antibody Screen Crossmatch 12/03/19 12/02/19 12/02/19 Range/Units 03:51 23:44 20:51 WBC (4.8-10.8) K/uL RBC (4.2-5.4) M/uL Hgb (12.0-16.0) g/dL Hct (37-47) % MCV (80-100) fL MCH (25-34) pg MCHC (32-36) g/dL RDW Std Deviation (36.4-46.3) fL RDW Coeff of Mikayla (11.5-14.5) % Plt Count (130-400) K/uL MPV (7.4-10.4) fL Immature Gran % (Auto) % Neut % (Auto) % Lymph % (Auto) % [place] % (Auto) % Eos % (Auto) % Baso % (Auto) % Neut # (Auto) (1.4-6.5) K/uL Lymph # (Auto) (1.2-3.4) K/uL [place] # (Auto) (0.11-0.59) K/uL Eos # (Auto) (0-0.5) K/uL Baso # (Auto) (0-0.2) K/uL Immature Gran # (Auto) (0.00-0.02) K/uL Ovalocytes Sodium (136-145) mmol/L Potassium (3.5-5.1) mmol/L Chloride (98-107) mmol/L Carbon Dioxide (21-32) mmol/L Anion Gap (3-11) BUN (7-18) mg/dl Creatinine (0.6-1.2) mg/dl Est Cr Clr Drug Dosing ml/min Est GFR ( Amer) Est GFR (Non-Af Amer) BUN/Creatinine Ratio (10-20) Glucose (70-99) mg/dl POC Glucose 96 111 H 193 H (70-99) mg/dl Estimat Average Glucose mg/dl Hemoglobin A1c (4.5-5.6) % Calcium (8.5-10.1) mg/dl Magnesium (1.8-2.4) mg/dl Total Bilirubin (0.2-1) mg/dl Direct Bilirubin (0-0.2) mg/dl AST (15-37) U/L ALT (12-78) U/L Alkaline Phosphatase (45-117) U/L Total Protein (6.4-8.2) gm/dl Albumin (3.4-5.0) gm/dl Lipase (73-393) U/L Blood Type Blood Type Recheck Antibody Screen Crossmatch 12/02/19 12/02/19 12/02/19 Range/Units 17:19 13:49 12:51 WBC (4.8-10.8) K/uL RBC (4.2-5.4) M/uL Hgb (12.0-16.0) g/dL Hct (37-47) % MCV (80-100) fL MCH (25-34) pg MCHC (32-36) g/dL RDW Std Deviation (36.4-46.3) fL RDW Coeff of Mikayla (11.5-14.5) % Plt Count (130-400) K/uL MPV (7.4-10.4) fL Immature Gran % (Auto) % Neut % (Auto) % Lymph % (Auto) % [place] % (Auto) % Eos % (Auto) % Baso % (Auto) % Neut # (Auto) (1.4-6.5) K/uL Lymph # (Auto) (1.2-3.4) K/uL [place] # (Auto) (0.11-0.59) K/uL Eos # (Auto) (0-0.5) K/uL Baso # (Auto) (0-0.2) K/uL Immature Gran # (Auto) (0.00-0.02) K/uL Ovalocytes Sodium (136-145) mmol/L Potassium (3.5-5.1) mmol/L Chloride (98-107) mmol/L Carbon Dioxide (21-32) mmol/L Anion Gap (3-11) BUN (7-18) mg/dl Creatinine (0.6-1.2) mg/dl Est Cr Clr Drug Dosing ml/min Est GFR ( Amer) Est GFR (Non-Af Amer) BUN/Creatinine Ratio (10-20) Glucose (70-99) mg/dl POC Glucose 194 H 189 H 173 H (70-99) mg/dl Estimat Average Glucose mg/dl Hemoglobin A1c (4.5-5.6) % Calcium (8.5-10.1) mg/dl Magnesium (1.8-2.4) mg/dl Total Bilirubin (0.2-1) mg/dl Direct Bilirubin (0-0.2) mg/dl AST (15-37) U/L ALT (12-78) U/L Alkaline Phosphatase (45-117) U/L Total Protein (6.4-8.2) gm/dl Albumin (3.4-5.0) gm/dl Lipase (73-393) U/L Blood Type Blood Type Recheck Antibody Screen Crossmatch 12/02/19 12/02/19 12/02/19 Range/Units 10:04 05:41 05:41 WBC (4.8-10.8) K/uL RBC (4.2-5.4) M/uL Hgb (12.0-16.0) g/dL Hct (37-47) % MCV (80-100) fL MCH (25-34) pg MCHC (32-36) g/dL RDW Std Deviation (36.4-46.3) fL RDW Coeff of Mikayla (11.5-14.5) % Plt Count (130-400) K/uL MPV (7.4-10.4) fL Immature Gran % (Auto) % Neut % (Auto) % Lymph % (Auto) % [place] % (Auto) % Eos % (Auto) % Baso % (Auto) % Neut # (Auto) (1.4-6.5) K/uL Lymph # (Auto) (1.2-3.4) K/uL [place] # (Auto) (0.11-0.59) K/uL Eos # (Auto) (0-0.5) K/uL Baso # (Auto) (0-0.2) K/uL Immature Gran # (Auto) (0.00-0.02) K/uL Ovalocytes Sodium (136-145) mmol/L Potassium (3.5-5.1) mmol/L Chloride (98-107) mmol/L Carbon Dioxide (21-32) mmol/L Anion Gap (3-11) BUN (7-18) mg/dl Creatinine (0.6-1.2) mg/dl Est Cr Clr Drug Dosing ml/min Est GFR ( Amer) Est GFR (Non-Af Amer) BUN/Creatinine Ratio (10-20) Glucose (70-99) mg/dl POC Glucose (70-99) mg/dl Estimat Average Glucose 197 mg/dl Hemoglobin A1c 8.5 H (4.5-5.6) % Calcium (8.5-10.1) mg/dl Magnesium (1.8-2.4) mg/dl Total Bilirubin (0.2-1) mg/dl Direct Bilirubin (0-0.2) mg/dl AST (15-37) U/L ALT (12-78) U/L Alkaline Phosphatase (45-117) U/L Total Protein (6.4-8.2) gm/dl Albumin (3.4-5.0) gm/dl Lipase (73-393) U/L Blood Type O Positive Blood Type Recheck O Positive Antibody Screen NEGATIVE Crossmatch See Detail 12/02/19 Range/Units 05:41 WBC (4.8-10.8) K/uL RBC (4.2-5.4) M/uL Hgb (12.0-16.0) g/dL Hct (37-47) % MCV (80-100) fL MCH (25-34) pg MCHC (32-36) g/dL RDW Std Deviation (36.4-46.3) fL RDW Coeff of Mikayla (11.5-14.5) % Plt Count (130-400) K/uL MPV (7.4-10.4) fL Immature Gran % (Auto) % Neut % (Auto) % Lymph % (Auto) % [place] % (Auto) % Eos % (Auto) % Baso % (Auto) % Neut # (Auto) (1.4-6.5) K/uL Lymph # (Auto) (1.2-3.4) K/uL [place] # (Auto) (0.11-0.59) K/uL Eos # (Auto) (0-0.5) K/uL Baso # (Auto) (0-0.2) K/uL Immature Gran # (Auto) (0.00-0.02) K/uL Ovalocytes Sodium 141 (136-145) mmol/L Potassium 4.1 (3.5-5.1) mmol/L Chloride 111 H (98-107) mmol/L Carbon Dioxide 24 (21-32) mmol/L Anion Gap 6.0 (3-11) BUN 15 (7-18) mg/dl Creatinine 0.93 (0.6-1.2) mg/dl Est Cr Clr Drug Dosing 43.7 ml/min Est GFR ( Amer) 67.7 Est GFR (Non-Af Amer) 58.5 BUN/Creatinine Ratio 16.3 (10-20) Glucose 98 (70-99) mg/dl POC Glucose (70-99) mg/dl Estimat Average Glucose mg/dl Hemoglobin A1c (4.5-5.6) % Calcium 7.8 L (8.5-10.1) mg/dl Magnesium 1.6 L (1.8-2.4) mg/dl Total Bilirubin 2.2 H D (0.2-1) mg/dl Direct Bilirubin 1.7 H (0-0.2) mg/dl AST 998 H (15-37) U/L ALT 682 H (12-78) U/L Alkaline Phosphatase 367 H (45-117) U/L Total Protein 4.9 L (6.4-8.2) gm/dl Albumin 2.2 L (3.4-5.0) gm/dl Lipase 799 H (73-393) U/L Blood Type Blood Type Recheck Antibody Screen Crossmatch
[2019-12-03] MEDS: SODIUM CHLORIDE 0.9% 1000ML 1,000 ML IV SCH ×2 (11:42→19:59)
[2019-12-03] MEDS: PIPERACILLIN/TAZOBACTAM 3.375 GM in DEXTROSE 5% 100 ML IV SCH ×2 (11:42→16:27)
--- NOTE | 2019-12-03 13:52 | Ultrasound Report ---
BILATERAL LOWER EXTREMITY VENOUS DOPPLER CLINICAL HISTORY: edema COMPARISON STUDY: Bilateral lower extremity venous Doppler ultrasound October 24, 2019 TECHNIQUE: Sonography of the deep venous system of the bilateral lower extremities was performed. Co mpression and augmentation were evaluated. FINDINGS: The bilateral common femoral, superficial femoral and popliteal veins were compressible. A ugmentation was normal. Flow was shown within the deep calf vessels although the calf vessels were saucedo boptimally assessed due to lower extremity edema.. IMPRESSION: Suboptimal evaluation of the bilateral calf vessels but no evidence of deep venous thromb us within the bilateral lower extremities. ACT 112: Negative or not required by law. Electronically signed by: Albin Smith M.D. 12/03/2019 1:50 PM
--- NOTE | 2019-12-03 15:53 | Surgery Progress Note ---
Date of Service PATIENT SEEN AT 9:30 AM December 03, 2019 Assessment & Plan (1) Acute cholecystitis: POD # 1 s/p ERCP with pancreatic and biliary stent placement and laparoscopic cholecystectomy - vitals stable, afebrile - Hemoglobin down to 6.8 (7.9 preop), 40 cc total blood loss intraopera tively, fatigued today - abdominal soreness at incisions otherwise benign abdomen - no n/v Plan: Okay to advance diet to soft diet from surgical prospective transfusing 1 unit of PRBCs, repeat hemoglobin later this morning. Monitor response to transfusion. Would not order repeat abdominal imaging as abdomen is benign other than tenderness at incision sites and bleeding controlled intraoperatively. Continue pain management as needed Continue IV Abx Continue IV Protonix per GI recommendations Continue medical management Incentive spirometry, scds recommended (2) Choledocholithiasis: POD # 1 s/p ERCP with pancreatic and biliary stent placement and laparoscopic cholecystectomy LFTS, t. bili downtrending but still elevated plan as above Discussed with Dr. Esteves who evaluated patient separately and agrees with above. Admission and Anticipated Discharge Date Admission Date: December 01, 2019 Subjective feeling fatigued today denies chest pain/shortness of breath abdominal soreness at incision sites, not pain no nausea or vomiting tolerated full liquids passing gas but no bowel movement Physical Exam Constitutional: no acute distress and not ill appearing Respiratory: normal respiratory effort; no respiratory distress Gastrointestinal (Abdomen): Inspection/Auscultation: abdomen normal to inspection; abdomen not distended Percussion/Palpation: + abdomen tender (at incision sites appropriate postop) and abdomen soft; no guarding and abdomen not rigid Skin: no rashes, warm and dry + incision (covered with dry dressings, clean/intact) Psychiatric: A+Ox3, euthymic affect Results & Data ([facility]) Vital Signs (Past 12 Hours) Vital Signs Temp Pulse Pulse Resp BP BP Pulse Ox 12/03/19 15:11 36.9 C 78 17 145/73 H 94 12/03/19 11:37 37.0 C 85 18 124/75 92 12/03/19 10:45 36.7 C 93 H 18 105/57 L 93 12/03/19 09:45 36.8 C 75 18 128/68 92 12/03/19 09:44 36.8 C 75 18 128/68 92 12/03/19 09:15 37.1 C 93 H 18 130/58 L 92 12/03/19 08:29 37.0 C 93 H 18 134/72 92 12/03/19 08:25 37 C 89 18 160/63 H 92 12/03/19 08:10 36.8 C 92 H 18 166/73 H 94 12/03/19 03:54 36.9 C 96 H 18 128/68 94 Laboratory Results 12/03/19 12/03/19 12/03/19 Range/Units 12:11 12:01 08:32 WBC (4.8-10.8) K/uL RBC (4.2-5.4) M/uL Hgb 8.2 L (12.0-16.0) g/dL Hct (37-47) % MCV (80-100) fL MCH (25-34) pg MCHC (32-36) g/dL RDW Std Deviation (36.4-46.3) fL RDW Coeff of Mikayla (11.5-14.5) % Plt Count (130-400) K/uL MPV (7.4-10.4) fL Immature Gran % (Auto) % Neut % (Auto) % Lymph % (Auto) % [place] % (Auto) % Eos % (Auto) % Baso % (Auto) % Neut # (Auto) (1.4-6.5) K/uL Lymph # (Auto) (1.2-3.4) K/uL [place] # (Auto) (0.11-0.59) K/uL Eos # (Auto) (0-0.5) K/uL Baso # (Auto) (0-0.2) K/uL Immature Gran # (Auto) (0.00-0.02) K/uL Ovalocytes Sodium (136-145) mmol/L Potassium (3.5-5.1) mmol/L Chloride (98-107) mmol/L Carbon Dioxide (21-32) mmol/L Anion Gap (3-11) BUN (7-18) mg/dl Creatinine (0.6-1.2) mg/dl Est Cr Clr Drug Dosing ml/min Est GFR ( Amer) Est GFR (Non-Af Amer) BUN/Creatinine Ratio (10-20) Glucose (70-99) mg/dl POC Glucose 113 H 88 (70-99) mg/dl Estimat Average Glucose mg/dl Hemoglobin A1c (4.5-5.6) % Calcium (8.5-10.1) mg/dl Magnesium (1.8-2.4) mg/dl Total Bilirubin (0.2-1) mg/dl Direct Bilirubin (0-0.2) mg/dl AST (15-37) U/L ALT (12-78) U/L Alkaline Phosphatase (45-117) U/L Total Protein (6.4-8.2) gm/dl Albumin (3.4-5.0) gm/dl Lipase (73-393) U/L Blood Type Antibody Screen Crossmatch 12/03/19 12/03/19 12/03/19 Range/Units 05:44 05:44 03:51 WBC 9.40 (4.8-10.8) K/uL RBC 2.50 L (4.2-5.4) M/uL Hgb 6.8 L* (12.0-16.0) g/dL Hct 21.1 L (37-47) % MCV 84.4 (80-100) fL MCH 27.2 (25-34) pg MCHC 32.2 (32-36) g/dL RDW Std Deviation 48.1 H (36.4-46.3) fL RDW Coeff of Mikayla 15.5 H (11.5-14.5) % Plt Count 267 (130-400) K/uL MPV 9.3 (7.4-10.4) fL Immature Gran % (Auto) 0.2 % Neut % (Auto) 67.0 % Lymph % (Auto) 17.8 % [place] % (Auto) 13.8 % Eos % (Auto) 1.1 % Baso % (Auto) 0.1 % Neut # (Auto) 6.30 (1.4-6.5) K/uL Lymph # (Auto) 1.67 (1.2-3.4) K/uL [place] # (Auto) 1.30 H (0.11-0.59) K/uL Eos # (Auto) 0.10 (0-0.5) K/uL Baso # (Auto) 0.01 (0-0.2) K/uL Immature Gran # (Auto) 0.02 (0.00-0.02) K/uL Ovalocytes 1+ Sodium 139 (136-145) mmol/L Potassium 4.0 (3.5-5.1) mmol/L Chloride 111 H (98-107) mmol/L Carbon Dioxide 22 (21-32) mmol/L Anion Gap 6.0 (3-11) BUN 13 (7-18) mg/dl Creatinine 0.88 (0.6-1.2) mg/dl Est Cr Clr Drug Dosing 46.2 ml/min Est GFR ( Amer) 72.4 Est GFR (Non-Af Amer) 62.5 BUN/Creatinine Ratio 14.5 (10-20) Glucose 84 (70-99) mg/dl POC Glucose 96 (70-99) mg/dl Estimat Average Glucose mg/dl Hemoglobin A1c (4.5-5.6) % Calcium 7.3 L (8.5-10.1) mg/dl Magnesium 1.8 (1.8-2.4) mg/dl Total Bilirubin 1.3 H (0.2-1) mg/dl Direct Bilirubin 0.7 H D (0-0.2) mg/dl AST 435 H (15-37) U/L ALT 436 H (12-78) U/L Alkaline Phosphatase 323 H (45-117) U/L Total Protein 4.4 L (6.4-8.2) gm/dl Albumin 1.9 L (3.4-5.0) gm/dl Lipase (73-393) U/L Blood Type Antibody Screen Crossmatch 12/02/19 12/02/19 12/02/19 Range/Units 23:44 20:51 17:19 WBC (4.8-10.8) K/uL RBC (4.2-5.4) M/uL Hgb (12.0-16.0) g/dL Hct (37-47) % MCV (80-100) fL MCH (25-34) pg MCHC (32-36) g/dL RDW Std Deviation (36.4-46.3) fL RDW Coeff of Mikayla (11.5-14.5) % Plt Count (130-400) K/uL MPV (7.4-10.4) fL Immature Gran % (Auto) % Neut % (Auto) % Lymph % (Auto) % [place] % (Auto) % Eos % (Auto) % Baso % (Auto) % Neut # (Auto) (1.4-6.5) K/uL Lymph # (Auto) (1.2-3.4) K/uL [place] # (Auto) (0.11-0.59) K/uL Eos # (Auto) (0-0.5) K/uL Baso # (Auto) (0-0.2) K/uL Immature Gran # (Auto) (0.00-0.02) K/uL Ovalocytes Sodium (136-145) mmol/L Potassium (3.5-5.1) mmol/L Chloride (98-107) mmol/L Carbon Dioxide (21-32) mmol/L Anion Gap (3-11) BUN (7-18) mg/dl Creatinine (0.6-1.2) mg/dl Est Cr Clr Drug Dosing ml/min Est GFR ( Amer) Est GFR (Non-Af Amer) BUN/Creatinine Ratio (10-20) Glucose (70-99) mg/dl POC Glucose 111 H 193 H 194 H (70-99) mg/dl Estimat Average Glucose mg/dl Hemoglobin A1c (4.5-5.6) % Calcium (8.5-10.1) mg/dl Magnesium (1.8-2.4) mg/dl Total Bilirubin (0.2-1) mg/dl Direct Bilirubin (0-0.2) mg/dl AST (15-37) U/L ALT (12-78) U/L Alkaline Phosphatase (45-117) U/L Total Protein (6.4-8.2) gm/dl Albumin (3.4-5.0) gm/dl Lipase (73-393) U/L Blood Type Antibody Screen Crossmatch 12/02/19 12/02/19 12/02/19 Range/Units 10:04 05:41 05:41 WBC (4.8-10.8) K/uL RBC (4.2-5.4) M/uL Hgb (12.0-16.0) g/dL Hct (37-47) % MCV (80-100) fL MCH (25-34) pg MCHC (32-36) g/dL RDW Std Deviation (36.4-46.3) fL RDW Coeff of Mikayla (11.5-14.5) % Plt Count (130-400) K/uL MPV (7.4-10.4) fL Immature Gran % (Auto) % Neut % (Auto) % Lymph % (Auto) % [place] % (Auto) % Eos % (Auto) % Baso % (Auto) % Neut # (Auto) (1.4-6.5) K/uL Lymph # (Auto) (1.2-3.4) K/uL [place] # (Auto) (0.11-0.59) K/uL Eos # (Auto) (0-0.5) K/uL Baso # (Auto) (0-0.2) K/uL Immature Gran # (Auto) (0.00-0.02) K/uL Ovalocytes Sodium 141 (136-145) mmol/L Potassium 4.1 (3.5-5.1) mmol/L Chloride 111 H (98-107) mmol/L Carbon Dioxide 24 (21-32) mmol/L Anion Gap 6.0 (3-11) BUN 15 (7-18) mg/dl Creatinine 0.93 (0.6-1.2) mg/dl Est Cr Clr Drug Dosing 43.7 ml/min Est GFR ( Amer) 67.7 Est GFR (Non-Af Amer) 58.5 BUN/Creatinine Ratio 16.3 (10-20) Glucose 98 (70-99) mg/dl POC Glucose (70-99) mg/dl Estimat Average Glucose 197 mg/dl Hemoglobin A1c 8.5 H (4.5-5.6) % Calcium 7.8 L (8.5-10.1) mg/dl Magnesium 1.6 L (1.8-2.4) mg/dl Total Bilirubin 2.2 H D (0.2-1) mg/dl Direct Bilirubin 1.7 H (0-0.2) mg/dl AST 998 H (15-37) U/L ALT 682 H (12-78) U/L Alkaline Phosphatase 367 H (45-117) U/L Total Protein 4.9 L (6.4-8.2) gm/dl Albumin 2.2 L (3.4-5.0) gm/dl Lipase 799 H (73-393) U/L Blood Type O Positive Antibody Screen NEGATIVE Crossmatch See Detail
[2019-12-03] MEDS ORDERED: INSULIN GLARGINE SOLOSTAR 100 UNITS/ML 3 ML PEN SC ONE (16:45)
[2019-12-03] MEDS: PANTOprazole 40 MG in SYRINGE 0 ML IV SCH (19:59)
[2019-12-04] MEDS: PIPERACILLIN/TAZOBACTAM 3.375 GM in DEXTROSE 5% 100 ML IV SCH ×3 (00:51→15:55)
[2019-12-04] MEDS: LEVOTHYROXINE SODIUM 100 MCG TABLET PO SCH (05:21)
[2019-12-04] MEDS: SODIUM CHLORIDE 0.9% 1000ML 1,000 ML IV SCH ×2 (05:22→08:38)
[2019-12-04 06:04] LABS: Hematocrit (blood only) 25.5 % (37-47); Hemoglobin 8.2 g/dL (12.0-16.0); Mean Corpuscular Hgb Conc 32.2 g/dL (32-36); Mean Corpuscular Volume 83.9 fL (80-100); Mean Platelet Volume 9.6 fL (7.4-10.4); Platelet Count 276 K/uL (130-400); RDW Coefficient of Variation 15.4 % (11.5-14.5); RDW Standard Deviation 47.8 fL (36.4-46.3); Red Blood Count 3.04 M/uL (4.2-5.4); White Blood Count 10.37 K/uL (4.8-10.8)
[2019-12-04 06:52] LABS: Albumin Globulin Ratio 0.6 (0.9-2); Albumin Level 1.8 gm/dl (3.4-5.0); BUN Creatinine Ratio 13.6 (10-20); Bilirubin,Total 0.9 mg/dl (0.2-1); Calcium 7.4 mg/dl (8.5-10.1); Creatinine Clr Calc Pharmacy 46.2 ml/min; Est GFR (African American) 72.4; Est GFR (Non-African American) 62.5; Globulin 2.8 gm/dl (2.5-4.0); Potassium 3.4 mmol/L (3.5-5.1); Total Protein 4.6 gm/dl (6.4-8.2)
[2019-12-04] MEDS: CARBOHYDRATES FOR HYPOGLYCEMIA PO PRN ×4 (06:58→20:51)
[2019-12-04] MEDS: PANTOprazole 40 MG in SYRINGE 0 ML IV SCH ×2 (08:38→20:41)
[2019-12-04] MEDS: INSULIN ASPART 100 UNITS/ML 3 ML PEN SC SCH ×2 (08:48→12:58)
--- NOTE | 2019-12-04 09:17 | Gastroenterology Progress Note ---
Date of Service December 04, 2019 Assessment & Plan (1) Elevated LFTs: S/P ERCP and CCY, LFTs trending down, decrease HGB overnight without BUN elevation of black/bloody stools. S/P 1 unit RBCs w/ stable HGB w/o evidence of GIB GI will sign off NO GI contraindication to advancing diet Trend HGB Monitor and document stools Transfuse PRN Avoid aspirin and nonsteroidal anti-inflammatory medicines for 5 days. Repeat ERCP in 4 weeks to remove stent. Use a proton pump inhibitor IV daily for 2 days then change to PO BID dose for 3 months. May resume Anticoagulation after 3- 4 days standpoint if HGB stable Admission and Anticipated Discharge Date Admission Date: December 01, 2019 Supervising Physician Co-Signing Physician Notes I have seen and examined the patient with SHIVA Cabrera whose note reflects our findings and plan. s/p ERCP. Feeling ok. LFTs improving. H/H stable. Advance diet. Repeat ERCP will be arranged by our office. Please call with questions. Subjective Some surgical site tenderness No pain No nausea/vomiting No BM but passing gas Tolerating clears 1 unit RBCs, HGB stable LFTs trending down Review of Systems Constitutional: no fever, no chills and no fatigue Respiratory: no cough and no dyspnea Cardiovascular: no chest pain, no chest pain at rest and no dyspnea Gastrointestinal: no abdominal pain, no blood in stools and no melena Physical Exam Constitutional: + not well developed, + not well nourished and no acute distress Respiratory: normal respiratory effort Cardiovascular: Rate/Rhythm: regular rate and regular rhythm Gastrointestinal (Abdomen): Inspection/Auscultation: normal bowel sounds Percussion/Palpation: abdomen soft; abdomen nontender Skin: no rashes, warm and dry Results & Data ([facility]) Vital Signs (Past 12 Hours) Vital Signs Temp Pulse Resp BP Pulse Ox 12/04/19 07:13 36.6 C 90 17 159/77 H 97 12/03/19 23:25 36.8 C 72 16 108/53 L 93
--- NOTE | 2019-12-04 09:52 | Surgery Progress Note ---
Date of Service December 04, 2019 Assessment & Plan (1) Acute cholecystitis: POD # 2 s/p ERCP with pancreatic and biliary stent placement and laparoscopic cholecystectomy - vitals stable, afebrile - Hemoglobin stable s/p 1 units of PRBCs on 12/03/2019 (8.2 this am, 6.8 prior to transfusion) - abdominal soreness at incisions otherwise benign abdomen - no n/v Plan: Okay to advance diet from surgical prospective Doing well from surgical prospective for discharge, will need 1-2 week follow-up in surgical office Continue pain management as needed Will add daily Colace given narcotic use Continue IV Abx Continue IV Protonix per GI recommendations switch to PO on discharge Incentive spirometry encouraged SCDs resume anticoagulation per GI recommendations and if Hemoglobin stable. Continue medical management (2) Choledocholithiasis: POD # 2 s/p ERCP with pancreatic and biliary stent placement and laparoscopic cholecystectomy LFTS, t. bili downtrending, lipase wnl plan as above Dr. Esteves has seen patient and agrees with above. Admission and Anticipated Discharge Date Admission Date: December 01, 2019 Subjective feeling better today having some shortness of breath when walking to bathroom but has had shortness of breath recently, using incentive spirometry but not as frequent. May have heard some wheezing on expiration no nausea or vomiting, tolerating full liquids passing gas no bowel movement incisional soreness, Percocet controlling pain Physical Exam Constitutional: no acute distress and not ill appearing Respiratory: normal respiratory effort; no respiratory distress Gastrointestinal (Abdomen): Inspection/Auscultation: abdomen normal to inspection; abdomen not distended Percussion/Palpation: + abdomen tender (at incision sites, appropriate postop) and abdomen soft; no guarding and abdomen not rigid Skin: no rashes, warm and dry + incision (covered with dry dressings) Psychiatric: A+Ox3, euthymic affect Results & Data ([facility]) Vital Signs (Past 12 Hours) Vital Signs Temp Pulse Resp BP Pulse Ox 12/04/19 07:13 36.6 C 90 17 159/77 H 97 12/03/19 23:25 36.8 C 72 16 108/53 L 93
[2019-12-04] MEDS ORDERED: DOCUSATE SODIUM 100 MG CAP PO ONE (10:00)
[2019-12-04] MEDS ORDERED: POTASSIUM CHLORIDE 20 MEQ TABCR PO STA (10:23)
[2019-12-04] MEDS: HEPARIN 100 UNIT/ML 5ML FLUSH FLUSH PRN ×2 (11:37→19:16)
--- NOTE | 2019-12-04 14:24 | Pharmacy Report ---
Glycemic Control Progress Note - Date of Service December 04, 2019 - Scope Glycemic Pharmacist consulted for glycemic control to write orders per [facility] inpatient glycemic control protocol. - Objective Accuchecks BSG(last 24 hours):: 12/03/19 12/03/19 12/04/19 17:24 20:55 05:38 Glucose 48 L* POC Glucose 104 H 172 H 12/04/19 12/04/19 12/04/19 07:15 07:36 08:20 Glucose POC Glucose 49 L* 115 H 161 H 12/04/19 11:56 Glucose POC Glucose 215 H HbA1c:: Hemoglobin A1c 8.5 % (4.5-5.6) H 12/02/19 05:41 - Recent Pertinent Medications The patient is currently receiving: * Basal insulin: Lantus 14 units SQ x 1 * Correctional Insulin: Novolog Correction per scale ACHS Goal Range: Low 110 mg/dL - High 140 mg/dL Correction Factor: 30 mg/dL/unit * Prandial insulin: Per carb ratio of 1 unit per 10 grams CHO consumed - Outpatient Anti-Diabetic Meds Novolog pump - Assessment & Plan ASSESSMENT: * See progress note from 12/01/2019 for more background info, in short: * Pt receiving SQ basal bolus insulin regimen for hyperglycemia secondary to baseline DM (outpatient regimen on hold). Patient is currently on Zosyn for cholecystectomy. She is planning on going home tomorrow so will restart insul in pump today. * Patient is currently receiving an average of 21 units of insulin per day * 14 units of basal insulin * 7 units of prandial/correctional insulin * BSGs ranging 88 - 172 mg/dl over the past 24hrs * Changes needed to insulin regimen: * AM Fasting BSG = 48 mg/dl. This is significantly below goal range for patient based on inpatient targets and co-morbidities. Will restart insulin pump today around 1600. Patient to set temporary basal rate that is 15-20% lower than typical basal rate. (whichever one she chooses will be based on what her pump allows her to choose). * Post-prandial BSGs are fine. Will be controlled by pump now -- patient requesting to be checked overnight so added checks. * Total daily dose = ? units. Diet is progressing so insulin requirements should go up. PLAN FOR INPATIENT GLYCEMIC CONTROL: * Starting insulin pump with temporary basal ~20% less than current rate. RECOMMENDATIONS FOR DISCHARGE: * Recommend patient to continue to follow-up with [facility] to make adjustments to her insulin pump. Thank you.
[2019-12-04] MEDS ORDERED: INSULIN ASPART 100 UNITS/ML VIAL SC PRN (14:30)
--- NOTE | 2019-12-04 17:11 | Hospitalist Progress Note ---
Date of Service December 04, 2019 Assessment & Plan (1) Acute pancreatitis: With acute calculous cholecystitis with hemobilia and acute gallstone pancreatitis Presented with epigastric abd pain and found to have acute pancreatitis on CT, lipase [address] abd/pel with possible pancreatitis, with gallbladder distension, sludge and pericholecystic fluid, suspect acute madelyn RUQ US with : - acute cholecystitis with complex avascular material suggestive of sludge versus blood products. LFTs high on admission and trending down - continue to hold anticoagulation -consulted GI and Surgery-> ERCP in conjunction with lap madelyn which was performed on 12/01 ERCP with sludge and stone removed from CBD after sphincterotomy, 2 plastic stents placed Lap madelyn performed and bloody bile aspirated, GB removed -will need repeat ERCP in 4 weeks for stent removal -avoid ASA/NSAIDs for 5 days - until 12/06 -Hold anticoagulation - may be able restart Xarelto in 2-3 days post ERCP as per GI -continue IV Zosyn -Advanced diet to low fat/low fiber (2) Choledocholithiasis: as above, now s/p ERCP with stents in place (3) Blood loss anemia: Hgb 6.8 12/02 - transfused 1 unit prbcs Hgb has been stable around 8.2 since transfusion (4) Acute cholecystitis: as above (5) Duodenal ulcer: Noted to have multiple clean-based ulcers, nonbleeding, in duodenum on ERCP -GI recommends PPI IV bid x 2 days then po bid Protonix on discharge -check H. pylori stool ag (6) Elevated LFTs: Significantly elevated AST and ALT, Alk phos, normal TBili associated with choledocholithiasis and hemobilia -improving (7) Hypomagnesemia: Replaced (8) Hypertension: previously on amlodipine 2.5mg daily but not sure if still on this recently? BPs mildly elevated here -no treatment for now follow bP (9) Diabetes mellitus type 1: -dc'd home insulin pump for hyperglycemia in the 300s on admission -Pharmacy consulted Patient will transition back to her pump this evening (10) Hx of deep venous thrombosis: -History of such in August 2019, had repeat Dopplers ultrasound in October 2019 which showed no DVT. Repeated 12/02 - no dvts bilaterally - patient had been on Xarelto 20 mg daily on admission -Xarelto held until 3-4 days post-ERCP as per GI -SCDs in place (11) Lung nodule: On CT Abd/pel: "There are 2 4 mm solid nodules of the right lower lobe. There are a few scattered solid nodules of the left lower lobe also present measuring up to 3 mm. These appear unchanged from comparison" follow as outpt (12) Hypercholesteremia: -Hold atorvastatin for elevated LFTs (13) Osteoporosis: -Hold home vitamin D and calcium supplementation (14) Infiltrating ductal carcinoma of right breast: - G3, ER/RI neg, Her2 3+, initially diagnosed 05/09/19 who recently completed 6 cycles of neoadjuvant chemo with docetaxel + carboplatin + trastuzumab (TCH) + pertuzumab (started 06/25/19) on November 04/2020 - Planned mastectomy on 12/[address] [place] [address] Burdick. Was supposed to hold xarelto for 5d prior to this surgery. Patient is discussing whether to push back this surgery with her doctor but may be able to proceed Pt to contact her Surgeon's office to let them know (15) Hypothyroidism: -Continue levothyroxine 100 mcg daily -TSH was mildly elevated a few months ago Would not recheck now in the middle of an acute illness (16) DVT prophylaxis: No anticoagulation given hemorrhage into gallbladder and decreased hgb 12/03 - restart anticoagulation 2 days given high risk of VTE SCDs CODE: Full code Dispo: continued stay Admission and Anticipated Discharge Date Admission Date: December 01, 2019 Subjective Ms. Franco is feeling better today. Able to ambulate halls. Tolerating diet. Hgb remained stable. She reports some sob with ambulation but reports this has been ongoing since beginning chemotherapy treatments ROS Constitutional: no chills, aches, sweats or fever Respiratory: no sob,cough, sputum, or wheezing Cardiac: no chest pain, palpitations, edema, orthopnea or lightheadedness GI: no abdominal pain, nausea, vomiting, diarrhea or constipation : no dysuria or hesitancy Extremities: no joint pain or weakness Skin: no rash All other systems reviewed and negative Physical Exam Physical Exam: General: no distress Eyes: normal inspection, PERLL Respiratory: chest non tender, clear to auscultation, normal breath sounds, no respiratory distress, no accessory muscle use Cardiac: regular rate and rhythm, no rub or gallop, no murmur, no edema, no jvd GI/: active bowel sounds, no abd pain or tenderness, soft, non distended Extremities: normal range of motion, normal strength, non tender Neuro/Psych: alert and oriented x 3, normal mood and affect Skin: normal color, dry Results & Data Results & Data ([facility]) Vital Signs (Past 12 Hours) Vital Signs Temp Pulse Pulse Resp BP Pulse Ox 12/04/19 16:00 37.1 C 81 18 157/72 H 95 12/04/19 07:13 36.6 C 90 17 159/77 H 97 PG Care Time/CCT Total # of Minutes Spent Total Time Spent with Patient: Total time spent is greater than 50% in coordi nation of care (as documented) at patient's floor/unit and/or counseling patient: Coding Level of Care Code 16979 Subseq Hosp Care Lvl 3 Diagnoses Acute pancreatitis K85.90 Acute pancreatitis complication: unspecified Pancreatitis type: unspecified pancreatitis type Choledocholithiasis K80.50 Blood loss anemia D50.0 Acute cholecystitis K81.0 Duodenal ulcer K26.9 Elevated LFTs R79.89 Hypomagnesemia E83.42 Hypertension I10 Diabetes mellitus type 1 E10.9 Hx of deep venous thrombosis Z86.718 Lung nodule R91.1 Hypercholesteremia E78.00 Osteoporosis M81.0 Infiltrating ductal carcinoma of right breast C50.911 Hypothyroidism E03.9 DVT prophylaxis Z29.9 (1) Acute pancreatitis Acute pancreatitis complication: unspecified Pancreatitis type: unspecified pancreatitis type Qualified Code(s): K85.90 - Acute pancreatitis without necrosis or infection, unspecified
[2019-12-04] MEDS: OXYCODONE/ACETAMINOPHEN 5mg/325mg TAB PO PRN (19:16)
[2019-12-04] MEDS: NovoLOG INSULIN PUMP SCH ×3 (20:25→20:38)
[2019-12-05] MEDS: PIPERACILLIN/TAZOBACTAM 3.375 GM in DEXTROSE 5% 100 ML IV SCH ×2 (00:10→07:41)
[2019-12-05] MEDS: NovoLOG INSULIN PUMP SCH ×6 (00:13→21:50)
[2019-12-05 06:25] LABS: Basophils # (auto) 0.02 K/uL (0-0.2); Basophils % (auto) 0.2 %; Eosinophils # (auto) 0.63 K/uL (0-0.5); Eosinophils % (auto) 6.5 %; Hematocrit (blood only) 23.9 % (37-47); Hemoglobin 7.8 g/dL (12.0-16.0); Immature Granulocytes # (auto) 0.02 K/uL (0.00-0.02); Immature Granulocytes % (auto) 0.2 %; Lymphocytes # (auto) 2.22 K/uL (1.2-3.4); Lymphocytes % (auto) 22.7 %; Mean Corpuscular Hemoglobin 27.2 pg (25-34); Mean Corpuscular Hgb Conc 32.6 g/dL (32-36); Mean Corpuscular Volume 83.3 fL (80-100); Mean Platelet Volume 9.7 fL (7.4-10.4); Monocytes # (auto) 1.42 K/uL (0.11-0.59); Monocytes % (auto) 14.5 %; Neutrophils # (auto) 5.45 K/uL (1.4-6.5); Neutrophils % (auto) 55.9 %; Platelet Count 281 K/uL (130-400); RDW Coefficient of Variation 15.5 % (11.5-14.5); RDW Standard Deviation 47.5 fL (36.4-46.3); Red Blood Count 2.87 M/uL (4.2-5.4); White Blood Count 9.76 K/uL (4.8-10.8)
[2019-12-05 06:43] LABS: Ovalocytes 1+
[2019-12-05 06:54] LABS: Albumin Level 1.9 gm/dl (3.4-5.0); BUN Creatinine Ratio 11.2 (10-20); Calcium 8.2 mg/dl (8.5-10.1); Creatinine Clr Calc Pharmacy 43.7 ml/min; Est GFR (African American) 67.7; Est GFR (Non-African American) 58.5; Magnesium 1.5 mg/dl (1.8-2.4); Potassium 3.9 mmol/L (3.5-5.1)
[2019-12-05 06:57] LABS: Albumin Globulin Ratio 0.7 (0.9-2); Bilirubin,Total 0.6 mg/dl (0.2-1); Globulin 2.8 gm/dl (2.5-4.0); Total Protein 4.7 gm/dl (6.4-8.2)
[2019-12-05] MEDS: LEVOTHYROXINE SODIUM 100 MCG TABLET PO SCH (07:41)
[2019-12-05] MEDS: DOCUSATE SODIUM 100 MG CAP PO SCH (07:41)
[2019-12-05] MEDS: ACETAMINOPHEN 325 MG TAB PO PRN ×2 (07:41→20:04)
[2019-12-05] MEDS: PANTOprazole 40 MG in SYRINGE 0 ML IV SCH (07:42)
[2019-12-05] MEDS: MAGNESIUM SULFATE / D5W 1 GM/100 ML BAG IV SCH ×2 (10:15→12:22)
--- NOTE | 2019-12-05 11:48 | XRay Report ---
XR chest 2V PA/lateral CLINICAL HISTORY: sob, crackles left base COMPARISON STUDY: 08/03/2019 FINDINGS: There is a left-sided A-Port catheter. The heart is borderline enlarged. There is a large h iatal hernia. There are small bilateral pleural effusions with associated basilar atelectasis/consoli dation.[A right upper quadrant biliary enteric stent is visualized. IMPRESSION: 1. Large hiatal hernia 2. Small bilateral pleural effusions with associated bibasilar atelectasis/consolidation ACT 112: Negative or not required by law. Electronically signed by: Howard Jacobsen M.D. 12/05/2019 11:47 AM
--- NOTE | 2019-12-05 11:50 | XRay Report ---
XR KUB/Abdomen 1 view CLINICAL HISTORY: Constipation COMPARISON STUDY: No previous studies for comparison. FINDINGS: There is a nonobstructive bowel gas pattern. There is moderate right and transverse colonic stool. There is a right upper quadrant biliary enteric stent. It is also a pancreatic enteric stent. IMPRESSION: 1. Moderate stool within the right and transverse colon 2. No conventional radiographic evidence of bowel obstruction 3. Biliary and pancreatic stents ACT 112: Negative or not required by law. Electronically signed by: Howard Jacobsen M.D. 12/05/2019 11:48 AM
--- NOTE | 2019-12-05 13:36 | Hospitalist Progress Note ---
Date of Service December 05, 2019 Assessment & Plan (1) Acute pancreatitis: With acute calculous cholecystitis with hemobilia and acute gallstone pancreatitis Presented with epigastric abd pain and found to have acute pancreatitis on CT, lipase [address] abd/pel with possible pancreatitis, with gallbladder distension, sludge and pericholecystic fluid, suspect acute madelyn RUQ US with : - acute cholecystitis with complex avascular material suggestive of sludge versus blood products. LFTs high on admission and trending down -consulted GI and Surgery-> ERCP in conjunction with lap madelyn which was performed on 12/01 ERCP with sludge and stone removed from CBD after sphincterotomy, 2 plastic stents placed Lap madelyn performed and bloody bile aspirated, GB removed -will need repeat ERCP in 4 weeks for stent removal -avoid ASA/NSAIDs for 5 days - until 12/06 -Hold anticoagulation - may be able restart Xarelto in 3-4 days post ERCP as per GI - if hgb is stable this afternoon will restart Xeralto tomorrow - IV Zosyn discontinued - no further need for abx per GI and surgery, klebsiella in the urine is treated at this point -Advanced diet to low fat/low fiber - tolerating well (2) Choledocholithiasis: as above, now s/p ERCP with stents in place (3) Blood loss anemia: Hgb 6.8 12/02 - transfused 1 unit prbcs Hgb has been stable around 8 since transfusion -will check again this afternoon for hgb of 7.8 (4) Acute cholecystitis: as above (5) Duodenal ulcer: Noted to have multiple clean-based ulcers, nonbleeding, in duodenum on ERCP -GI recommends PPI IV bid x 2 days - now changed to po bid pantoprazole -check H. pylori stool ag - no bm since admission (6) Diabetes mellitus type 1: -dc'd home insulin pump for hyperglycemia in the 300s on admission - now transitioned back to home pump -Pharmacy consulted (7) Hx of deep venous thrombosis: -History of such in August 2019, had repeat Dopplers ultrasound in October 2019 which showed no DVT. Repeated 12/02 - no dvts bilaterally - patient had been on Xarelto 20 mg daily on admission -Xarelto held until 3-4 days post-ERCP as per GI -SCDs in place (8) Infiltrating ductal carcinoma of right breast: - G3, ER/ID neg, Her2 3+, initially diagnosed 05/09/19 who recently completed 6 cycles of neoadjuvant chemo with docetaxel + carboplatin + trastuzumab (TCH) + pertuzumab (started 06/25/19) on November 04/2020 - Planned mastectomy on 12/[address] at [place] [address]. Burdick. - Called [facility] in [place] today and spoke to the Nurse Navigator Myesha. Patient's surgery has been cancelled for now, they are ok with her restarting her Xeralto tomorrow. They will follow up on future surgery plans. Will have patient's records faxed over (9) Dyspnea: CXR showing atelectasis vs consolidation and small pleural effusions. No leukocytosis or fever so will hold off on abx Encourage IS (10) Hypomagnesemia: Replaced and will start daily supplementation (11) Elevated LFTs: Significantly elevated AST and ALT, Alk phos, normal TBili on admission associated with choledocholithiasis and hemobilia -nearly resolved (12) Hypertension: previously on amlodipine 2.5mg daily but not sure if still on this recently? BPs mildly elevated here -no treatment for now follow bP (13) Lung nodule: On CT Abd/pel: "There are 2 4 mm solid nodules of the right lower lobe. There are a few scattered solid nodules of the left lower lobe also present measuring up to 3 mm. These appear unchanged from comparison" follow as outpt (14) Hypercholesteremia: -Hold atorvastatin for elevated LFTs (15) Osteoporosis: -Hold home vitamin D and calcium supplementation (16) Hypothyroidism: -Continue levothyroxine 100 mcg daily -TSH was mildly elevated a few months ago Would not recheck now in the middle of an acute illness (17) Constipation: KUB without ileus or bowel obstruction. Continue stool softeners. Will add prn miralax (18) DVT prophylaxis: No anticoagulation given hemorrhage into gallbladder and decreased hgb 12/02 - restart anticoagulation tomorrow if hgb remains stable this afternoon SCDs CODE: Full code Dispo: continued stay Admission and Anticipated Discharge Date Admission Date: December 01, 2019 Subjective Ms. Franco is feeling very dyspneic with any exertion. She does have some sob at baseline since starting chemo but feels it is a bit worse today. Her pain is under good control. No BM since admission. ROS Constitutional: no chills, aches, sweats or fever Respiratory: no sputum, or wheezing Cardiac: no chest pain, palpitations, edema, orthopnea or lightheadedness GI: no abdominal pain, nausea, vomiting, diarrhea or constipation : no dysuria or hesitancy Extremities: no joint pain or weakness Skin: no rash All other systems reviewed and negative Physical Exam Physical Exam: General: no distress Eyes: normal inspection, PERLL Respiratory: chest non tender, clear to auscultation, normal breath sounds, no respiratory distress, no accessory muscle use Cardiac: regular rate and rhythm, no rub or gallop, no murmur, no edema, no jvd GI/: active bowel sounds, no abd pain or tenderness, soft, non distended Extremities: normal range of motion, normal strength, non tender Neuro/Psych: alert and oriented x 3, normal mood and affect Skin: normal color, dry Results & Data Results & Data ([facility]) Vital Signs (Past 12 Hours) Vital Signs Temp Pulse Resp BP Pulse Ox 12/05/19 07:16 36.9 C 76 18 153/62 H 95 PG Care Time/CCT Total # of Minutes Spent Total Time Spent with Patient: Total time spent is greater than 50% in coord ination of care (as documented) at patient's floor/unit and/or counseling patient: Coding Level of Care Code 11155 Subseq Hosp Care Lvl 3 Diagnoses Acute pancreatitis K85.90 Acute pancreatitis complication: unspecified Pancreatitis type: unspecified pancreatitis type Choledocholithiasis K80.50 Blood loss anemia D50.0 Acute cholecystitis K81.0 Duodenal ulcer K26.9 Diabetes mellitus type 1 E10.9 Hx of deep venous thrombosis Z86.718 Infiltrating ductal carcinoma of right breast C50.911 Dyspnea R06.00 Hypomagnesemia E83.42 Elevated LFTs R79.89 Hypertension I10 Lung nodule R91.1 Hypercholesteremia E78.00 Osteoporosis M81.0 Hypothyroidism E03.9 Constipation K59.00 DVT prophylaxis Z29.9 (1) Acute pancreatitis Acute pancreatitis complication: unspecified Pancreatitis type: unspecified pancreatitis type Qualified Code(s): K85.90 - Acute pancreatitis without necrosis or infection, unspecified
--- NOTE | 2019-12-05 14:30 | Pharmacy Report ---
Glycemic Control Progress Note - Date of Service December 05, 2019 - Scope Glycemic Pharmacist consulted for glycemic control to write orders per [facility] inpatient glycemic control protocol. - Objective Accuchecks BSG(last 24 hours):: 12/04/19 12/04/19 12/04/19 17:11 20:29 20:48 Glucose POC Glucose 126 H 60 L* 66 L* 12/04/19 12/04/19 12/05/19 21:11 23:53 04:10 Glucose POC Glucose 94 81 87 12/05/19 12/05/19 12/05/19 05:41 07:58 12:10 Glucose 77 POC Glucose 76 97 HbA1c:: Hemoglobin A1c 8.5 % (4.5-5.6) H 12/02/19 05:41 - Recent Pertinent Medications The patient is currently receiving: * Novolog pump currently at 80% of home basal rate - Outpatient Anti-Diabetic Meds Novolog pump - Assessment & Plan ASSESSMENT: * See progress note from 12/01/19 for more background info, in short: * Pt receiving SQ basal bolus insulin regimen for hyperglycemia secondary to baseline DM (outpatient regimen on hold). Patient is POD 3 for acute cholecystitis. * Patient is currently receiving an average of ? units of insulin per day (managed by patient via own insulin pump) * Basal rate has been reduced by 20% via temporary basal rate * BSGs ranging 48 - 215 mg/dl over the past 24hrs * Changes needed to insulin regimen: * AM Fasting BSG = 76 mg/dl. This is below goal range for patient based on inpatient targets and co-morbidities. Requested patient reduce basal rate further to 70% of home rate. Evening hypoglycemic event came from patient not setting insulin pump to 80% of home basal rate. Once this was adjusted, BSGs were higher. * Post-prandial BSGs are in range therefore no changes needed to CF/CR. * Total daily dose = ? units. Controlled by patient's own insulin pump at this time. PLAN FOR INPATIENT GLYCEMIC CONTROL: * Continuing /insulin pump with basal rate 70% of home regimen. RECOMMENDATIONS FOR DISCHARGE: * see note from 12/04/19 Thank you.
[2019-12-05 14:36] LABS: Basophils # (auto) 0.02 K/uL (0-0.2); Basophils % (auto) 0.2 %; Eosinophils % (auto) 5.1 %; Hematocrit (blood only) 24.2 % (37-47); Hemoglobin 7.8 g/dL (12.0-16.0); Immature Granulocytes # (auto) 0.02 K/uL (0.00-0.02); Immature Granulocytes % (auto) 0.2 %; Lymphocytes # (auto) 2.56 K/uL (1.2-3.4); Lymphocytes % (auto) 21.9 %; Mean Corpuscular Hemoglobin 27.3 pg (25-34); Mean Corpuscular Hgb Conc 32.2 g/dL (32-36); Mean Corpuscular Volume 84.6 fL (80-100); Monocytes # (auto) 1.25 K/uL (0.11-0.59); Monocytes % (auto) 10.7 %; Neutrophils # (auto) 7.22 K/uL (1.4-6.5); Neutrophils % (auto) 61.9 %; Platelet Count 292 K/uL (130-400); RDW Coefficient of Variation 15.8 % (11.5-14.5); RDW Standard Deviation 48.9 fL (36.4-46.3); Red Blood Count 2.86 M/uL (4.2-5.4); White Blood Count 11.67 K/uL (4.8-10.8)
[2019-12-05 15:07] LABS: Poikilocytosis Present
[2019-12-05] MEDS: PANTOprazole 40 MG TAB PO SCH (20:05)
[2019-12-06] MEDS: LEVOTHYROXINE SODIUM 100 MCG TABLET PO SCH (06:02)
[2019-12-06 06:26] LABS: Hematocrit (blood only) 23.9 % (37-47); Hemoglobin 7.8 g/dL (12.0-16.0); Mean Corpuscular Hemoglobin 27.7 pg (25-34); Mean Corpuscular Hgb Conc 32.6 g/dL (32-36); Mean Corpuscular Volume 84.8 fL (80-100); Mean Platelet Volume 9.4 fL (7.4-10.4); Platelet Count 318 K/uL (130-400); RDW Coefficient of Variation 15.8 % (11.5-14.5); RDW Standard Deviation 49.3 fL (36.4-46.3); Red Blood Count 2.82 M/uL (4.2-5.4); White Blood Count 9.92 K/uL (4.8-10.8)
[2019-12-06 06:55] LABS: Creatinine Clr Calc Pharmacy 46.2 ml/min; Est GFR (African American) 72.4; Est GFR (Non-African American) 62.5
[2019-12-06] MEDS: ACETAMINOPHEN 325 MG TAB PO PRN (07:52)
[2019-12-06] MEDS: NovoLOG INSULIN PUMP SCH (08:37)
[2019-12-06] MEDS: DOCUSATE SODIUM 100 MG CAP PO SCH (08:38)
[2019-12-06] MEDS: PANTOprazole 40 MG TAB PO SCH (08:38)
[2019-12-06] MEDS ORDERED: RIVAROXABAN 20 MG TAB PO SCH (09:00)
[2019-12-06] MEDS ORDERED: MAGNESIUM OXIDE 400 MG TAB PO SCH (09:00)
--- NOTE | 2019-12-06 14:06 | Discharge Summary ---
Date of Service December 06, 2019 Admission HPI Per Admitting Provider This is a 79 yo F with PMHx of invasive ductal carcinoma of the lower outer right breast, G3, ER/TX neg, Her2 3+, initially diagnosed 05/09/19 who recently completed 6 cycles of neoadjuvant chemo with docetaxel + carboplatin + trastuzumab (TCH) + pertuzumab (started 06/25/19) on November 04/2020. Other PMHx includes DM type I, diabetic retinopathy, HTN, hypothyroidism, osteoporosis, GERD. She presented overnight via EMS with acute epigastric pain overnight. But she started feeling abdominal discomfort in the late afternoon, was able to eat dinner, and went to bed around 11 PM. She woke up around 1 AM with excruciating right upper quadrant and epigastric pain, called 911 and presented to the ER. She denies any fevers, but did have sweats. She reports her stool was loose and floating this morning when she had a bowel movement, she was acutely nauseous but did not vomit. Her pain is currently improved compared to what it was whenever she first presented, rates it as a 7/10 currently. Her mouth is very dry, she has ice chips at bedside. Pt notes she is scheduled for a left mastectomy at [facility] on 12/10/[address] Burdick. Pt was found to have elevated LFTs, lipase, CT of the abdomen pelvis shows distended gallbladder filled with complex debris and sludge there is gallbladder wall thickening and pericholecystic fluid suspicious for acute cholecystitis. RUQ U/S significant for gallstones on review, final report pending. She received IVFs and fentanyl for pain control while in the ER. Principal Diagnosis Pancreatitis, cholecystitis, duodenal ulcers Discharge Exam Constitutional WD/WN, vitals as above Respiratory normal respiratory effort, lungs clear to auscultation Cardiovascular RRR, no murmur, no edema Gastrointestinal (Abdomen) normal bowel sounds, soft, nontender, no hepatosplenomegaly Musculoskeletal no cyanosis or clubbing, extremities motor strength 5/5 Skin no rashes, warm and dry steri strips intact, incision site well approximated Discharge Data Allergies Allergy/AdvReac Type Severity Reaction Status Date / Time lisinopril AdvReac Intermediate ELEVATES Verified 12/01/19 03:16 POTASSIUM LEVELS losartan AdvReac Intermediate ELEVATES Verified 12/01/19 03:16 POTASSIUM LEVELS. Consultations 12/01/19 07:07 ED Decision to Admit Stat 12/01/19 09:32 Consult Case Management - Discharge Planning Routine Consult General Surgery Routine 12/01/19 09:45 Consult Gastroenterology Routine Procedures Performed Operation Date: 12/01/19 07:30 <No data on this case meets the specified criteria> Operation Date: 12/02/19 07:30 Actual Procedures p Endoscopic Retrograde Cholangiopancreatogophy(Not Applicable) - Hernandez Lozada MD s Laparoscopic Cholecystectomy(Not Applicable) - Narendra Bragg MD Ordered Studies 12/01/19 02:57 CT abd pelvis IV con only Urgent 12/01/19 05:30 US gallbladder Urgent 12/02/19 07:00 FL ERCP biliary ductal Routine 12/03/19 13:30 US venous doppler LE BI Routine Hospital Course (1) Acute pancreatitis: With acute calculous cholecystitis with hemobilia and acute gallstone pancreatitis Presented with epigastric abd pain and found to have acute pancreatitis on CT, lipase [address] abd/pel with possible pancreatitis, with gallbladder distension, sludge and pericholecystic fluid, suspect acute madelyn RUQ US with : - acute cholecystitis with complex avascular material suggestive of sludge versus blood products. LFTs high on admission and trending down -consulted GI and Surgery-> ERCP in conjunction with lap madelyn which was performed on 12/01 ERCP with sludge and stone removed from CBD after sphincterotomy, 2 plastic stents placed Lap madelyn performed and bloody bile aspirated, GB removed -will need repeat ERCP in 4 weeks for stent removal -avoid ASA/NSAIDs for 5 days - until 12/06 - recommended to patient she hold altogether as she has ulcers as well -Held anticoagulation - restarted today per GI and as patient's hemoglobin has been stable around 8 for four days - IV Zosyn discontinued - no further need for abx per GI and surgery, klebsiella in the urine is treated at this point -Advanced diet to low fat/low fiber - tolerating well (2) Choledocholithiasis: as above, now s/p ERCP with stents in place (3) Blood loss anemia: Hgb 6.8 12/02 - transfused 1 unit prbcs Hgb has been stable around 8 since transfusion - resumed Xeralto 12/05 Will have CBC checked on Tuesday with results to pcp (4) Acute cholecystitis: as above (5) Duodenal ulcer: Noted to have multiple clean-based ulcers, nonbleeding, in duodenum on ERCP -GI recommends PPI IV bid x 2 days - now changed to po bid pantoprazole - H. pylori stool ag pending (6) Diabetes mellitus type 1: -dc'd home insulin pump for hyperglycemia in the 300s on admission - now transitioned back to home pump -Pharmacy consulted - discussed with pharmacy and exhaust worker - patient will decrease her pump to 60% of her normal basal rate while she is taking in less po. She will contact her endocrinology office today or tomorrow to discuss titrating her dosing back up. She will maintain her same bolus dosing. Patient verbalized understanding of these instructions. (7) Hx of deep venous thrombosis: -History of such in August 2019, had repeat Dopplers ultrasound in October 2019 which showed no DVT. Repeated 12/02 - no dvts bilaterally - patient had been on Xarelto 20 mg daily on admission -Xarelto held until 3-4 days post-ERCP as per GI - resumed 12/05 -SCDs in place during admission (8) Infiltrating ductal carcinoma of right breast: - G3, ER/TX neg, Her2 3+, initially diagnosed 05/09/19 who recently completed 6 cycles of neoadjuvant chemo with docetaxel + carboplatin + trastuzumab (TCH) + pertuzumab (started 06/25/19) on November 04/2020 - Planned mastectomy on 12/[address] at [place] [address] Burdick. - Called [facility] in [place] today and spoke to the Nurse Navigator Myesha. Patient's surgery has been cancelled for now, they are ok with her restarting her Xeralto tomorrow. They will follow up on future surgery plans. Patient's records have been faxed and received by [place] (9) Dyspnea: CXR showing atelectasis vs consolidation and small pleural effusions. No leukocytosis, productive cough, or fever so will hold off on abx Encourage IS (10) Hypomagnesemia: Replaced - continue daily supplementation (11) Elevated LFTs: Significantly elevated AST and ALT, Alk phos, normal TBili on admission associated with choledocholithiasis and hemobilia -nearly resolved, will recheck outpatient labs on Tuesday (12) Hypertension: previously on amlodipine 2.5mg daily but not sure if still on this recently? BPs mildly elevated here -no treatment for now follow bP (13) Lung nodule: On CT Abd/pel: "There are 2 4 mm solid nodules of the right lower lobe. There are a few scattered solid nodules of the left lower lobe also present measuring up to 3 mm. These appear unchanged from comparison" Patient also has possible IPMN/pancreatic cyst. follow as outpt (14) Hypercholesteremia: -Hold atorvastatin for elevated LFTs - can discuss resuming with pcp after blood work on Tuesday (15) Osteoporosis: -Resume home vitamin D and calcium supplementation for home (16) Hypothyroidism: -Continue levothyroxine 100 mcg daily -TSH was mildly elevated a few months ago Would not recheck now in the middle of an acute illness (17) Constipation: Resolved, BM 12/05 - KUB without ileus or bowel obstruction. Continue stool softeners. Will add prn miralax (18) UTI (urinary tract infection): Present on admission - Symptoms of frequency before admission with bladder thickening on CT. Klebsiella in UC - covered with 4 days of abx - ceftriaxone and then Zosyn (19) DVT prophylaxis: - restart anticoagulation SCDs CODE: Full code Dispo: continued stay Total Time Total Time Spent Total Time Spent (In Minutes): greater than 30 minutes Discharge Plan Discharge Items Patient Disposition: Home - Self-Care Reason For Visit: ACUTE CHOLECYSTITIS, ACUTE PANCREATITIS Discharge Diagnosis: acute cholecystitis, pancreatitis Activity: Resume your previous activity Activity Comment: gradually as tolerated Non-emergency contact: Primary Care Provider Call non-emergency contact if: you have any medication questions, your symptoms worsen and you have a fever Follow-up/Referrals: Salvador Kimble III, MD [Primary Care Provider] - Narendra Bragg MD [Physician] - 12/17/19 11:30 am () Hernandez Lozada MD [Hospitalist] - () Diet: Carb Count or DM1 Ambulatory Orders: Complete Blood Count no Diff (Routine) Timeframe: 20191210 Location: Determined by Patient Ordered By: Jeannie Frederick Comprehensive Metabolic Panel (Routine) Timeframe: 20191210 Location: Determined by Patient Ordered By: Jeannie Frederick Addtl Attending Provider Instructions: (1) Acute pancreatitis, cholecystitis, duodenal ulcer: You were treated for an acute infection of your gallbladder (cholecystitis), inflammation of the pancreas (pancreatitis), acute hemorrhage into the gallbadder and a duodenal ulcer You had an endoscopy performed on 11/30 to look into your stomach and the beginning of your small bowel which found a duodenal ulcer. You had an Endoscopic Retrograde Cholangiopancreatogophy performed by Dr. Hernandez Lozada om 12/01 in conjunction with cholecystectomy performed Dr. Bragg. During the ERCP you had two stents placed in your common bile duct - You will need repeat a repeat ERCP in 4 weeks for stent removal -avoid aspirin and non steroidal anti-inflammatories (NSAIDs) such as ibuprofen and naproxen -Your Xeralto was resumed on 12/05 -Advanced your diet as tolerated (2) Blood loss anemia: You received 1 unit of blood during this admission for a hemoglobin of 6.8. Your hemoglobin has been stable around 8 for four days so your Xeralto was resumed Please recheck your hemoglobin on Tuesday. Results will go to your primary care provider (3) Duodenal ulcer: You were noted to have multiple clean-based ulcers, nonbleeding, in you duodenum (small intestine) on ERCP -Gastroenterology recommends pantoprazole twice per day for at least 3 months. - H. pylori stool antigen is pending (4) Diabetes mellitus type 1: As you discussed with the vb developer, you will continue with your temporary basal dosing of 60% of normal while your oral intake is low. Please call your endocrinology office tomorrow morning for instruction on titrating as you recover and start eating more. (5) Hx of deep venous thrombosis: Your ultrasound of your lower extremities were negative for DVT (6) Infiltrating ductal carcinoma of right breast: Your surgery at [place] was cancelled. Please keep in touch with [place] for rescheduling. Your chart from this admission will be sent to their office (7) Dyspnea (shortness of breath): Your chest Xray showed atelectasis (collapsing of small airways) vs a pneumonia. You do not have fever, elevated white blood cell count or persistent cough so it is unlikely that this is a pneumonia. Continue to use your incentive spirometer to open up the airways and resolve the atelectasis. If you develop fever or productive cough call you doctor right away (8) Hypomagnesemia: Continue supplementation (9) Lung nodule: On your CT scan of your abdome/pelvis a nodule was seen in your right lower lobe. You will need to follow up with your primary care doctor or oncologist for further work up. You should also follow up concerning the pancreatic cyst/lesion as seen on CT as well. (10) Hypercholesteremia: -Hold atorvastatin until you follow up with your primary care provider in a week. At that time he can advise if it should be restarted. Your statin was held due to your liver function Addtl Advertising Strategist Provider Instructions: Post-Surgical ~Discharge Instructions Activity Recommendations: - lifting limitation: (20 pounds for 3-4 weeks), - exercise/sex/sports limit: (nonstrenuous for 2 weeks), - driving or machine use limit: (none for 1 week or until you are no longer taki ng narcotic pain medication), - Shower/bathe limit: (may shower) Diet: - Recommend low fat diet for next few weeks SPECIAL CARE INSTRUCTIONS: - May shower. Let water run over area and pat dry. - Leave steri strips on for one week and then remove. - Call the surgeon's office with any questions or concerns - - (ex. temperature higher than 101 degrees F, excessive bleeding or pain). MEDICATIONS: - Resume previous medications unless instructed otherwise. - May take extra strength Tylenol as needed for mild pain -650 mg every 6 hours as needed - Try to avoid taking Tylenol with Percocet as Percocet has Tylenol in it. DO NOT avoid 3,000 mg of Tylenol in a 24 hour period. - Percocet 1 every 4 hours, as needed for moderate to severe pain FOLLOW UP VISIT: - If not already scheduled, please call the office to schedule a one- two week follow-up appointment. Office number Pending Studies at Discharge: Yes Studies:: H Pylori Stand-Alone Forms: [facility] [employer], Smoking Cessation Medications and DC Order Prescriptions: New pantoprazole 40 mg Tablet,Delayed Release (Dr/Ec) 40 mg PO BID Qty: 60 RF: 1 docusate sodium 100 mg Capsule 100 mg PO DAILY Qty: 30 RF: 0 Continued levothyroxine 100 mcg tablet 100 mcg PO DAILY Qty: 90 RF: 3 calcium carbonate-vitamin D3 600 mg(1,500mg) -800 unit tablet 2 tab PO QAM RF: 0 Lacto.acidophilus-Bif.animalis 31 billion cell capsule 1 cap PO BID RF: 0 Xarelto 20 mg tablet 20 mg PO DAILY RF: 0 Lasix 20 mg 20 mg PO 3XWK RF: 0 magnesium oxide 400 mg magnesium Tablet 400 mg PO QDD RF: 0 insulin aspart U-100 [Novolog U-100 Insulin aspart] 100 unit/mL solution 0 unit continuous subcutaneous infusion DIRECTED RF: 0 Discontinued atorvastatin 10 mg tablet 10 mg PO HS Qty: 90 RF: 3 Discharge Orders: Discharge Order (Routine); Ordered 12/06/19 Ordered By: Jeannie Flores/Other Patient Handouts: Understanding Carbohydrates, Treating Constipation Admission Data Admit Date/Time: 12/01/19 08:14 Attending Provider: Kt Dill Admit Provider: Rhiannon Jones Primary Care Provider: Salvador Kimble III Other Providers: [facility] ; Rhiannon Jones ; Narendra Bragg ; Hernandez Lozada Other Interventions: Discharge Summary Assessment (RN) Last Done: 12/06/19 12:20 Supervising Physician Co-Signing Physician Notes Patient seen and examined on the day of discharge. I agree with the discharge summary by Jeannie SHANNON. I have reviewed the chart including labs, imaging and plans for discharge. patient feeling much better, only pain is that from surgical incision sites tolerating diet, no nausea reviewed labs, improved - Acute cholecystitis, choledocholithiasis, acute blood loss anemia after procedure pain controlled, doing much better s/p ERCP with stent, will need follow up in 4 weeks for removal, knows to avoid NSAIDs s/p ERCP s/p cholecystectomy, surgical d/c instructions provided, follow up with general surgery Hb is stable after transfusion, vitals stable Coding Level of Care Code D/C Day Management >30 mins Diagnoses Acute pancreatitis K85.90 Acute pancreatitis complication: unspecified Pancreatitis type: unspecified pancreatitis type Choledocholithiasis K80.50 Blood loss anemia D50.0 Acute cholecystitis K81.0 Duodenal ulcer K26.9 Diabetes mellitus type 1 E10.9 Hx of deep venous thrombosis Z86.718 Infiltrating ductal carcinoma of right breast C50.911 Dyspnea R06.00 Hypomagnesemia E83.42 Elevated LFTs R79.89 Hypertension I10 Lung nodule R91.1 Hypercholesteremia E78.00 Osteoporosis M81.0 Hypothyroidism E03.9 Constipation K59.00 UTI (urinary tract infection) N39.0 DVT prophylaxis Z29.9
== END 2019-12-06 13:44 | disposition home or self-care (01) | DRG 417 ==
LOC: ED 02:23 → 3W 08:14 → SUATTDRO 08:14 → 3W 09:02

== ENCOUNTER 2020-11-30 16:24 | Inpatient (IN) ==
[2020-11-30] MEDS ORDERED: MoRPHine SULFATE 2 MG/ML CARP IV STA (17:52)
--- NOTE | 2020-11-30 19:34 | XRay Report ---
XR chest 1V portable HISTORY: Weakness. fall COMPARISON: Chest 12/05/2019. FINDINGS: No pneumothorax. No pleural effusions. No focal lung consolidations to suggest pneumonia. N o evidence for pulmonary edema. There is a moderate hiatus hernia, unchanged. Left subclavian Port-A- Cath runs at the distal SVC. Old, healed right anterior rib fractures are again noted. IMPRESSION: 1. No acute process within the chest. 2. Moderate hiatus hernia, unchanged. ACT 112: Negative or not required by law. Electronically signed by: Chung Briscoe M.D. 11/30/2020 7:32 PM
[2020-11-30] MEDS ORDERED: MoRPHine SULFATE 2 MG/ML CARP IV PRN (19:43)
[2020-11-30] MEDS ORDERED: MoRPHine SULFATE 4 MG/ML 1 ML CARP\\VIAL IV PRN (19:43)
--- NOTE | 2020-11-30 19:43 | Emergency Department Note ---
History of Present Illness General Chief complaint: Hip Pain Stated complaint: FELL OFF PICNIC TABLE - HURT LEFT HIP Time Seen by Provider: 11/30/20 16:34 History of Present Illness Provider complaint: Fall left hip pain Onset (ago): hour(s) 7 Location: lower extremity and left Radiation: non-radiation Severity: moderate Pain Consistency: + constant Maximum Pain Intensity: 10 Current Pain Intensity: 10 Quality: + aching Relieved By: + immobilization Exacerbated By: + movement Associated symptoms: no chest pain, no fever/chills, no headaches, no malaise, no nausea/vomiting, no shortness of breath or no weakness 80-year-old female with history of diabetes and breast cancer presents emergency department for left hip pain. Patient is on Xarelto. She denies hitting her head. She states she fell at 930 this morning when she was sitting on a bench. She reports it hurts to move or walk. Pain is better with immobilization. Home Medications Medication Instructions Recorded Confirmed Type calcium carbonate-vitamin D3 600 1 tab PO DAILY tab 06/19/19 11/30/20 History mg (1,500 mg)-800 unit tablet Lactobacillus 1 cap PO DAILY cap 09/17/19 11/30/20 History acidophilus-Bifidobac.animalis 31 billion cell capsule cholecalciferol (vitamin D3) 125 125 mcg PO QAM 12/25/19 11/30/20 History mcg (5,000 unit) capsule Novolog U-100 Insulin aspart 100 45 unit CONTINUOUS SUBCUTANEOUS 02/20/20 11/30/20 Rx unit/mL subcutaneous solution INFUSION DAILY 90 Days #40 ml NS (insulin aspart U-100) omeprazole 20 mg tablet,delayed 20 mg PO DAILY 03/27/20 11/30/20 History release furosemide 20 mg tablet (Lasix) 20 mg PO 3XWK #90 tab 04/23/20 11/30/20 Rx levothyroxine 100 mcg tablet 100 mcg PO QAM #90 tab 04/23/20 11/30/20 Rx rivaroxaban 20 mg tablet (Xarelto) 20 mg PO QAM #90 tab 04/23/20 11/30/20 Rx insulin glargine 100 unit/mL 14 unit SUBCUT QPM #10 ml 06/30/20 11/30/20 Rx subcutaneous solution (Lantus U-100 Insulin) blood sugar diagnostic (Contour #100 ea 09/22/20 11/30/20 Rx Next Test Strips) blood-glucose sensor (Dexcom G6 #3 ea 09/22/20 11/30/20 History Sensor) blood-glucose transmitter (Dexcom #1 ea 09/22/20 11/30/20 History G6 Transmitter) subcutaneous insulin pump (MiniMed #1 ea 09/22/20 11/30/20 History 530G Insulin Pump) Allergies Allergy/AdvReac Type Severity Reaction Status Date / Time lisinopril AdvReac Intermediate ELEVATES Verified 11/30/20 16:59 POTASSIUM LEVELS losartan AdvReac Intermediate ELEVATES Verified 11/30/20 16:59 POTASSIUM LEVELS. 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 Bragg History of colonoscopy (11/14/09) Dr. Martinez, scattered sigmoid diverticuli, follow-up 10 years History of colonoscopy (03/26/20) Dr Lam, [facility], 5 mm sigmoid polyp History of ERCP (~12/02/19) History of esophagogastroduodenoscopy (EGD) (03/26/20) Dr Lam, [facility], large hiatal hernia, nonbleeding duodenal ulcer (done for iron def anemia) History of tonsillectomy and adenoidectomy History of vascular access device APort--left side of chest S/P mastectomy (12/17/19) Right breast, with sentinel lymph node biopsy, Dr. Preet Burdick, [facility] [place]P thyroid biopsy benign Family History Sister Breast cancer Pancreatic cancer Father Cancer Lung cancer Brother Diabetes Brother Diabetes Parkinson disease Grandfather (Maternal) Myocardial infarction Other No family history of adverse response to anesthesia Denies family history of Ovarian cancer Prostate cancer Colorectal cancer Social History Smoking Status: Never smoker Second Hand Exposure: No; Hx Alcohol Use: No Hx Substance Use: No Preferred Language: Syriac Communication Ability: Effective Visual Impairment: No Limitations Hearing Ability: Normal Senior Regulatory Affairs Specialist Required: No Beliefs That Will Affect Care: None marital status: / Current Living Situation: Alone current occupational status: retired Other Information That Helps Us Care for You: No Feels Safe at Home: Yes Safety Concerns: Feels Safe At This Time Dental Care, Regularly: Yes Physical Activity Frequency: Does not Exercise Seatbelt Use: always Assistive Devices: Cane and Glasses Assistive Devices Comment: insulin pump Review of Systems A total of 6 systems reviewed and were otherwise negative Physical Exam Vital Signs Vital Signs - 24 hr 11/30/20 16:27 11/30/20 16:50 11/30/20 17:00 Temperature 36.3 C L Temperature Source Temporal Artery Scan Pulse Rate 91 H 95 H 96 H Pulse Rate [Finger] Pulse Rate from SpO2 Sensor 94 H Pulse Rhythm Regular Pulse Rhythm [Finger] Pulse Strength Normal Pulse Strength [Finger] Respiratory Rate 20 13 23 Respiratory Effort / Characteristics Non-Labored Spontaneous Respiratory Depth Normal Respiratory Pattern Regular Blood Pressure 168/83 H Blood Pressure [Left Arm] Blood Pressure Mean 111 Blood Pressure Mean [Left Arm] Blood Pressure Position Sitting Blood Pressure Position [Left Arm] Pulse Oximetry 97 100 Oxygen Delivery Method Room Air Sepsis Recent Fever Within 48 Hours No Sepsis New/Unexplained Change in Mental Status No Sepsis Action Taken by Nursing No Action Required 11/30/20 17:30 11/30/20 18:56 11/30/20 20:39 Temperature Temperature Source Pulse Rate 104 H Pulse Rate [Finger] 100 H 100 H Pulse Rate from SpO2 Sensor 103 H Pulse Rhythm Pulse Rhythm [Finger] Regular Pulse Strength Pulse Strength [Finger] Normal Respiratory Rate 23 18 16 Respiratory Effort / Characteristics Non-Labored Spontaneous Respiratory Depth Normal Respiratory Pattern Blood Pressure Blood Pressure [Left Arm] 149/104 H 149/67 H Blood Pressure Mean Blood Pressure Mean [Left Arm] 119 94 Blood Pressure Position Blood Pressure Position [Left Arm] Lying Pulse Oximetry 96 95 94 Oxygen Delivery Method Room Air Room Air Sepsis Recent Fever Within 48 Hours Sepsis New/Unexplained Change in Mental Status Sepsis Action Taken by Nursing Physical Exam GENERAL: She is oriented to person, place, and time. She appears well-developed and well-nourished. She does not appear distressed. HENT: Exam performed. -Head: Normocephalic and atraumatic. -Right Ear: External ear normal. No mastoid tenderness. -Left Ear: External ear normal. No mastoid tenderness. -Mouth/Throat: The oropharynx is clear and moist. No trismus in the jaw. No dental abscesses or uvula swelling. No oropharyngeal exudate or tonsillar abscesses. EYES: Conjunctivae and EOM are normal. Pupils are equal, round, and reactive to light. Right eye exhibits no discharge. Left eye exhibits no discharge. No scler al icterus. NECK: Normal range of motion. Neck supple. No JVD present. No spinous process tenderness present. No carotid bruit present. No rigidity. No tracheal deviation and normal range of motion present. No Brudzinski's sign and no Kernig's sign noted. CV: Normal rate, regular rhythm, normal heart sounds and intact distal pulses. There is no peripheral edema. Palpable radial pulses bue. PULM/CHEST: Effort normal and breath sounds normal. No respiratory distress. No stridor. She has no wheezes. She has no rales. -Chest Wall: She exhibits no tenderness. ABD: The abdomen is soft. Bowel sounds are normal. She has no distension. No mass is present. There is no tenderness. There is no rebound, no guarding, no Frnacisco's sign and no tenderness at McBurney's point. Rovsig negative. Insulin pump in place. MUSC/SKEL: Pelvis stable. Pain on palpation of the left hip. Palpable DP and PT pulses bilateral lower extremities. LYMPH: No cervical adenopathy. NEURO: She is alert and oriented to person, place, and time. She has normal strength. No cranial nerve deficit or sensory deficit. Coordination and gait normal. GCS eye subscore is 4. GCS verbal subscore is 5. GCS motor subscore is 6. Cerebellar tests wnl. SKIN: Skin is warm and dry. She is not diaphoretic. PSYCH: She has a normal mood and affect. Behavior is normal. Judgment and thought content normal. Course Course 1633: The patient was evaluated in room B4. A complete history and physical exam was performed Cardiac monitoring: An order was placed for continuous cardiac monitoring. The monitor shows a rate of 90 with sinus rhythm 1944: X-ray does show hip fracture. Patient is now stating she is having mild headache and neck pain. Originally said to stated that she did not hit her head. Patient is on blood thinners. Will obtain CT of the head and neck and if within normal limits plan on admitting to the medicine service. 2041: CT of the head and neck are within normal limits. Patient will be admitted to the [facility]ist team Dr. De La O. Patient is requesting that Dr. Faizan De La O orthopedics be her orthopedic surgeon. Consult placed for orthopedics. Administered Medications Hydromorphone HCl (Hydromorphone Inj 0.5 Mg/0.5 Ml Syr) 0.5 mg IV Q3H PRN PRN Reason: Pain (6,7,8,9,10) Stop: 12/14/20 23:56 Last Admin: 12/01/20 00:39 Dose: 0.5 mg Documented by: [id number] Sodium Chloride (Nss 1000ml) 1,000 mls @ 120 mls/hr IV .Q8H20M JODI Stop: 12/01/20 16:36 Last Admin: 12/01/20 00:35 Dose: 120 mls/hr Documented by: [id number] Discontinued Medications Miscellaneous (Patient's Height And/Or Weight Needed) 1 ea N/A Q30M JODI Stop: 12/01/20 04:00 Last Admin: 12/01/20 00:35 Dose: 1 ea Documented by: [id number] Morphine Sulfate (Morphine Sulfate 2 Mg/Ml Carp) 2 mg IV NOW STA Stop: 11/30/20 17:53 Last Admin: 11/30/20 19:29 Dose: 2 mg Documented by: [id number] Medical Decision Making Laboratory Data Result diagrams: 11/30/20 20:19 11/30/20 20:19 Lab Results 11/30/20 11/30/20 11/30/20 Range/Units 20:19 20:19 20:19 WBC 8.04 (4.8-10.8) K/uL RBC 4.00 L (4.2-5.4) M/uL Hgb 11.5 L (12.0-16.0) g/dL Hct 34.7 L (37-47) % MCV 86.8 (80-100) fL MCH 28.8 (25-34) pg MCHC 33.1 (32-36) g/dL RDW Std Deviation 46.3 (36.4-46.3) fL RDW Coeff of Mikayla 14.3 (11.5-14.5) % Plt Count 187 (130-400) K/uL MPV 10.0 (7.4-10.4) fL Immature Gran % (Auto) 0.1 % Neut % (Auto) 66.0 % Lymph % (Auto) 18.2 % [place] % (Auto) 12.6 % Eos % (Auto) 2.9 % Baso % (Auto) 0.2 % Neut # (Auto) 5.31 (1.4-6.5) K/uL Lymph # (Auto) 1.46 (1.2-3.4) K/uL [place] # (Auto) 1.01 H (0.11-0.59) K/uL Eos # (Auto) 0.23 (0-0.5) K/uL Baso # (Auto) 0.02 (0-0.2) K/uL Immature Gran # (Auto) 0.01 (0.00-0.02) K/uL PT 13.0 H (9.0-12.0) Seconds INR 1.3 H (0.9-1.1) APTT 36.8 H (21.0-31.0) Seconds PTT Ratio 1.4 Sodium (136-145) mmol/L Potassium (3.5-5.1) mmol/L Chloride (98-107) mmol/L Carbon Dioxide (21-32) mmol/L Anion Gap (3-11) BUN (7-18) mg/dl Creatinine (0.6-1.2) mg/dl Est Cr Clr Drug Dosing Est GFR ( Amer) ml/min Est GFR (Non-Af Amer) ml/min BUN/Creatinine Ratio (10-20) Glucose (70-99) mg/dl Calcium (8.5-10.1) mg/dl Total Bilirubin (0.2-1) mg/dl AST (15-37) U/L ALT (12-78) U/L Alkaline Phosphatase (45-117) U/L Total Protein (6.4-8.2) gm/dl Albumin (3.4-5.0) gm/dl Globulin (2.5-4.0) gm/dl Albumin/Globulin Ratio (0.9-2) Urine Color Urine Appearance (Clear) Urine pH (4.5-7.5) Ur Specific [place] (1.000-1.030) Urine Protein (Negative) Urine Glucose (UA) (Negative) Urine Ketones (Negative) Urine Blood (Negative) Urine Nitrite (Negative) Urine Bilirubin (Negative) Urine Urobilinogen (Negative) Ur Leukocyte Esterase (Negative) Urine WBC (Auto) (0-5) /hpf Urine RBC (Auto) (0-4) /hpf U Hyaline Cast (Auto) (0-5) /lpf U Epithel Cells (Auto) (0-5) /lpf Urine Bacteria (Auto) (Negative) COVID-19 Eval Order SARS-CoV-2 (PCR) (Negative) Blood Type O Positive Antibody Screen NEGATIVE 11/30/20 11/30/20 11/30/20 Range/Units 20:19 20:20 20:20 WBC (4.8-10.8) K/uL RBC (4.2-5.4) M/uL Hgb (12.0-16.0) g/dL Hct (37-47) % MCV (80-100) fL MCH (25-34) pg MCHC (32-36) g/dL RDW Std Deviation (36.4-46.3) fL RDW Coeff of Mikayla (11.5-14.5) % Plt Count (130-400) K/uL MPV (7.4-10.4) fL Immature Gran % (Auto) % Neut % (Auto) % Lymph % (Auto) % [place] % (Auto) % Eos % (Auto) % Baso % (Auto) % Neut # (Auto) (1.4-6.5) K/uL Lymph # (Auto) (1.2-3.4) K/uL [place] # (Auto) (0.11-0.59) K/uL Eos # (Auto) (0-0.5) K/uL Baso # (Auto) (0-0.2) K/uL Immature Gran # (Auto) (0.00-0.02) K/uL PT (9.0-12.0) Seconds INR (0.9-1.1) APTT (21.0-31.0) Seconds PTT Ratio Sodium 138 (136-145) mmol/L Potassium 3.9 (3.5-5.1) mmol/L Chloride 104 (98-107) mmol/L Carbon Dioxide 27 (21-32) mmol/L Anion Gap 7.0 (3-11) BUN 20 H (7-18) mg/dl Creatinine 0.89 (0.6-1.2) mg/dl Est Cr Clr Drug Dosing Not Reportable Est GFR ( Amer) 70.9 ml/min Est GFR (Non-Af Amer) 61.2 ml/min BUN/Creatinine Ratio 22.2 H (10-20) Glucose 136 H (70-99) mg/dl Calcium 9.3 (8.5-10.1) mg/dl Total Bilirubin 1.1 H (0.2-1) mg/dl AST 40 H (15-37) U/L ALT 26 (12-78) U/L Alkaline Phosphatase 147 H (45-117) U/L Total Protein 6.7 (6.4-8.2) gm/dl Albumin 2.8 L (3.4-5.0) gm/dl Globulin 3.9 (2.5-4.0) gm/dl Albumin/Globulin Ratio 0.7 L (0.9-2) Urine Color Yellow Urine Appearance Clear (Clear) Urine pH 7.5 (4.5-7.5) Ur Specific [place] 1.010 (1.000-1.030) Urine Protein 1+ H (Negative) Urine Glucose (UA) Negative (Negative) Urine Ketones Negative (Negative) Urine Blood Negative (Negative) Urine Nitrite Positive A (Negative) Urine Bilirubin Negative (Negative) Urine Urobilinogen Negative (Negative) Ur Leukocyte Esterase Trace H (Negative) Urine WBC (Auto) 5-10 H (0-5) /hpf Urine RBC (Auto) 0-4 (0-4) /hpf U Hyaline Cast (Auto) 0 (0-5) /lpf U Epithel Cells (Auto) 0-5 (0-5) /lpf Urine Bacteria (Auto) 3+ H (Negative) COVID-19 Eval Order Covid19 at [facility] SARS-CoV-2 (PCR) (Negative) Blood Type Antibody Screen 11/30/20 Range/Units 20:20 WBC (4.8-10.8) K/uL RBC (4.2-5.4) M/uL Hgb (12.0-16.0) g/dL Hct (37-47) % MCV (80-100) fL MCH (25-34) pg MCHC (32-36) g/dL RDW Std Deviation (36.4-46.3) fL RDW Coeff of Mikayla (11.5-14.5) % Plt Count (130-400) K/uL MPV (7.4-10.4) fL Immature Gran % (Auto) % Neut % (Auto) % Lymph % (Auto) % [place] % (Auto) % Eos % (Auto) % Baso % (Auto) % Neut # (Auto) (1.4-6.5) K/uL Lymph # (Auto) (1.2-3.4) K/uL [place] # (Auto) (0.11-0.59) K/uL Eos # (Auto) (0-0.5) K/uL Baso # (Auto) (0-0.2) K/uL Immature Gran # (Auto) (0.00-0.02) K/uL PT (9.0-12.0) Seconds INR (0.9-1.1) APTT (21.0-31.0) Seconds PTT Ratio Sodium (136-145) mmol/L Potassium (3.5-5.1) mmol/L Chloride (98-107) mmol/L Carbon Dioxide (21-32) mmol/L Anion Gap (3-11) BUN (7-18) mg/dl Creatinine (0.6-1.2) mg/dl Est Cr Clr Drug Dosing Est GFR ( Amer) ml/min Est GFR (Non-Af Amer) ml/min BUN/Creatinine Ratio (10-20) Glucose (70-99) mg/dl Calcium (8.5-10.1) mg/dl Total Bilirubin (0.2-1) mg/dl AST (15-37) U/L ALT (12-78) U/L Alkaline Phosphatase (45-117) U/L Total Protein (6.4-8.2) gm/dl Albumin (3.4-5.0) gm/dl Globulin (2.5-4.0) gm/dl Albumin/Globulin Ratio (0.9-2) Urine Color Urine Appearance (Clear) Urine pH (4.5-7.5) Ur Specific [place] (1.000-1.030) Urine Protein (Negative) Urine Glucose (UA) (Negative) Urine Ketones (Negative) Urine Blood (Negative) Urine Nitrite (Negative) Urine Bilirubin (Negative) Urine Urobilinogen (Negative) Ur Leukocyte Esterase (Negative) Urine WBC (Auto) (0-5) /hpf Urine RBC (Auto) (0-4) /hpf U Hyaline Cast (Auto) (0-5) /lpf U Epithel Cells (Auto) (0-5) /lpf Urine Bacteria (Auto) (Negative) COVID-19 Eval Order SARS-CoV-2 (PCR) NEGATIVE (Negative) Blood Type Antibody Screen Imaging Data Radiologist's Impression: Femur X-Ray 11/30/20 16:40 XR femur LT 2V routine, XR hip LT 2V w pelvis CLINICAL HISTORY: Fall. Left hip and femur pain. COMPARISON STUDY: None. FINDINGS: No fracture or dislocation within the pelvis, right hip, or distal left femur. Vascular calcifications are noted. The sacrum is intact. There is a mildly impacted subcapital left femoral neck fracture. Soft tissue swelling within the left lateral hip. No dislocation. IMPRESSION: Mildly impacted subcapital left femoral neck fracture. ACT 112: Negative or not required by law. Electronically signed by: Chung Briscoe M.D. 11/30/2020 7:42 PM Hip/Pelvis X-Ray 11/30/20 16:41 XR femur LT 2V routine, XR hip LT 2V w pelvis CLINICAL HISTORY: Fall. Left hip and femur pain. COMPARISON STUDY: None. FINDINGS: No fracture or dislocation within the pelvis, right hip, or distal left femur. Vascular calcifications are noted. The sacrum is intact. There is a mildly impacted subcapital left femoral neck fracture. Soft tissue swelling within the left lateral hip. No dislocation. IMPRESSION: Mildly impacted subcapital left femoral neck fracture. ACT 112: Negative or not required by law. Electronically signed by: Chung Briscoe M.D. 11/30/2020 7:42 PM Chest X-Ray 11/30/20 17:09 XR chest 1V portable HISTORY: Weakness. fall COMPARISON: Chest 12/05/2019. FINDINGS: No pneumothorax. No pleural effusions. No focal lung consolidations to suggest pneumonia. No evidence for pulmonary edema. There is a moderate hiatus hernia, unchanged. Left subclavian Port-A-Cath runs at the distal SVC. Old, healed right anterior rib fractures are again noted. IMPRESSION: 1. No acute process within the chest. 2. Moderate hiatus hernia, unchanged. ACT 112: Negative or not required by law. Electronically signed by: Chung Briscoe M.D. 11/30/2020 7:32 PM Preliminary Findings Only See Final Report For Complete Findings CT HEAD: No skull fracture, acute bleed, infarct, or acute intracranial abnormality. Moderate atrophy and chronic white matter disease. Radiologist: Cathie Anthony M.D. Study ready at 20:17 and initial results transmitted at 20:25 Preliminary Findings Only See Final Report For Complete Findings CT C SPINE: No fracture or acute abnormality. Moderate degenerative change, including rightward C4-5 and C5-6 disc protrusions. Radiologist: Cathie Anthony M.D. Study ready at 20:17 and initial results transmitted at 20:28 ECG Data Indication: + other (pre op) Rate (beats per minute): 102 Rhythm: + normal sinus ECG Intervals/blocks: + Normal NE and + Normal QT-c ECG ST segments: + Normal ST segments Additional Comments: QRS 70 MDM Narrative 1634: The patient was evaluated in room B4. A complete history and physical exam was performed Cardiac monitoring: An order was placed for continuous cardiac monitoring. The monitor shows a rate of 90 with sinus rhythm 1944: X-ray does show hip fracture. Patient is now stating she is having mild headache and neck pain. Originally said to stated that she did not hit her head. Patient is on blood thinners. Will obtain CT of the head and neck and if within normal limits plan on admitting to the medicine service. 2041: CT of the head and neck are within normal limits. Patient will be admitted to the [facility] hospitalist team Dr. De La O. Patient is r equesting that Dr. Faizan De La O orthopedics be her orthopedic surgeon. Consult placed for orthopedics. Impression & Plan Hip fracture, left Discharge Plan Visit Data Chief Complaint: Hip Pain Stated Complaint: FELL OFF PICNIC TABLE - HURT LEFT HIP ED Provider: Von Contreras Discharge Problem: Hip fracture, left Patient Disposition: Admitted As Inpatient Discharge Instructions Interventions: ED Discharge Assessment Last Done: 11/30/20 23:35
[2020-11-30 20:30] LABS: Basophils # (auto) 0.02 K/uL (0-0.2); Basophils % (auto) 0.2 %; Eosinophils # (auto) 0.23 K/uL (0-0.5); Eosinophils % (auto) 2.9 %; Hematocrit (blood only) 34.7 % (37-47); Hemoglobin 11.5 g/dL (12.0-16.0); Immature Granulocytes # (auto) 0.01 K/uL (0.00-0.02); Immature Granulocytes % (auto) 0.1 %; Lymphocytes # (auto) 1.46 K/uL (1.2-3.4); Lymphocytes % (auto) 18.2 %; Mean Corpuscular Hemoglobin 28.8 pg (25-34); Mean Corpuscular Hgb Conc 33.1 g/dL (32-36); Mean Corpuscular Volume 86.8 fL (80-100); Monocytes # (auto) 1.01 K/uL (0.11-0.59); Monocytes % (auto) 12.6 %; Neutrophils # (auto) 5.31 K/uL (1.4-6.5); Platelet Count 187 K/uL (130-400); RDW Coefficient of Variation 14.3 % (11.5-14.5); RDW Standard Deviation 46.3 fL (36.4-46.3); White Blood Count 8.04 K/uL (4.8-10.8)
[2020-11-30 20:37] LABS: Appearance Urine Clear (Clear); Bacteria Urine Automated 3+ (Negative); Bilirubin Urine Negative (Negative); Blood Urine Negative (Negative); Cast Urine Automated 0 /lpf (0-5); Color Urine Yellow; Epithelial Cell Urine Auto 0-5 /lpf (0-5); Glucose Urine UA Negative (Negative); Ketones Urine Negative (Negative); Leukocyte Esterase Urine Trace (Negative); Nitrite Urine Positive (Negative); RBC Urine Automated 0-4 /hpf (0-4); Urobilinogen Urine Negative (Negative); pH Urine 7.5 (4.5-7.5)
[2020-11-30 20:41] LABS: INR 1.3 (0.9-1.1); Partial Thromboplastin Ratio 1.4; Partial Thromboplastin Time 36.8 Seconds (21.0-31.0)
[2020-11-30 20:46] LABS: Alanine Aminotransferase 26 U/L (12-78); Albumin Level 2.8 gm/dl (3.4-5.0); Aspartate Aminotransferase 40 U/L (15-37); BUN Creatinine Ratio 22.2 (10-20); Blood Urea Nitrogen 20 mg/dl (7-18); Calcium 9.3 mg/dl (8.5-10.1); Carbon Dioxide 27 mmol/L (21-32); Chloride 104 mmol/L (98-107); Est GFR (African American) 70.9 ml/min; Est GFR (Non-African American) 61.2 ml/min; Glucose 136 mg/dl (70-99); Potassium 3.9 mmol/L (3.5-5.1); Sodium 138 mmol/L (136-145)
[2020-11-30 20:49] LABS: Albumin Globulin Ratio 0.7 (0.9-2); Alkaline Phosphatase 147 U/L (45-117); Bilirubin,Total 1.1 mg/dl (0.2-1); Globulin 3.9 gm/dl (2.5-4.0); Total Protein 6.7 gm/dl (6.4-8.2)
[2020-11-30 20:49] LABS: Protein Urine 1+ (Negative)
--- NOTE | 2020-11-30 20:55 | History & Physical Report ---
Date of Service November 30, 2020 Assessment & Plan (1) Hip fracture, left: Plan: 80 yo F with extensive medical hx significant for IDDM1, breast cancer undergoing treatment, hx DVT, admitted for left hip fracture management. 1. L Hip Fx - Primary management by [facility] - NPO at [place] - hold xarelto, trend PT/INR, APTT - SCDs for DVT ppx - Pain management: 0.25 mg IV Dilaudid for pain 1-5, 0.5 mg IV Dilaudid for pain 6+ - pressure ulcer precautions 2. IDDM1 - pharmacy glycemic consult - patient has insulin pump, but is not as compliant with keeping sugars in range. also takes glargine in addition to pump? 3. Breast Cancer undergoing treatment - has completed chemotherapy, currently undergoing targeted treatments - treatments [id number], next is on 12/04 4. Hypothyroidism - cont levothyroxine 5. 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 Choledocholithiasis - chronic, monitor LFTs and sx DVT ppx: SCDs FEN/GI: heart healthy, NPO @ [place], famotidine IV BID Bowel Regimen: Miralax, docusate, senna Code Status: DNR/DNI (2) Breast cancer: (3) Uncontrolled type 1 diabetes mellitus: (4) Secondary hyperparathyroidism: (5) Diabetic peripheral neuropathy: (6) Anemia: (7) Gastritis: (8) Choledocholithiasis: (9) Deep vein thrombosis (DVT) of right lower extremity: (10) Pulmonary nodules: (11) IPMN (intraductal papillary mucinous neoplasm): History of Present Illness Primary Care Provider: Salvador Kimble MD 80 yo F hx DM1 on insulin pump, frequent UTIs, breast cancer undergoing targeted treatments, hx DVT, gastritis, secondary hyperparathyroidism, thyroid nodule brought to the ER by ambulance for fall off picnic table and left sided hip pain. States she was sitting on the edge of the bench, tried to stand up and fell to her left side. She denies any lightheadedness, dizziness prior to the fall. She has a hx of neuropathy to the knees bilaterally secondary to chemotherapy, and denies any new numbness or tingling. Pain is located over her left hip, was initially in the groin and moved to her left buttock and over the lateral side of the leg. No radiation of the pain elsewhere. She is on xarelto daily for hx DVT, last took it the morning of 11/30. Allergies Allergy/AdvReac Type Severity Reaction Status Date / Time lisinopril AdvReac Intermediate ELEVATES Verified 11/30/20 16:59 POTASSIUM LEVELS losartan AdvReac Intermediate ELEVATES Verified 11/30/20 16:59 POTASSIUM LEVELS. Home Medications Medication Instructions Recorded Confirmed Type calcium carbonate-vitamin D3 600 1 tab PO DAILY tab 06/19/19 11/30/20 History mg (1,500 mg)-800 unit tablet Lactobacillus 1 cap PO DAILY cap 09/17/19 11/30/20 History acidophilus-Bifidobac.animalis 31 billion cell capsule cholecalciferol (vitamin D3) 125 125 mcg PO QAM 12/25/19 11/30/20 History mcg (5,000 unit) capsule Novolog U-100 Insulin aspart 100 45 unit CONTINUOUS SUBCUTANEOUS 02/20/20 11/30/20 Rx unit/mL subcutaneous solution INFUSION DAILY 90 Days #40 ml NS (insulin aspart U-100) omeprazole 20 mg tablet,delayed 20 mg PO DAILY 03/27/20 11/30/20 History release furosemide 20 mg tablet (Lasix) 20 mg PO 3XWK #90 tab 04/23/20 11/30/20 Rx levothyroxine 100 mcg tablet 100 mcg PO QAM #90 tab 04/23/20 11/30/20 Rx rivaroxaban 20 mg tablet (Xarelto) 20 mg PO QAM #90 tab 04/23/20 11/30/20 Rx insulin glargine 100 unit/mL 14 unit SUBCUT QPM #10 ml 06/30/20 11/30/20 Rx subcutaneous solution (Lantus U-100 Insulin) blood sugar diagnostic (Contour #100 ea 09/22/20 11/30/20 Rx Next Test Strips) blood-glucose sensor (Dexcom G6 #3 ea 09/22/20 11/30/20 History Sensor) blood-glucose transmitter (Dexcom #1 ea 09/22/20 11/30/20 History G6 Transmitter) subcutaneous insulin pump (MiniMed #1 ea 09/22/20 11/30/20 History 530G Insulin Pump) Past Med/Surg History Medical History (Updated 12/01/20 @ 01:01 by Von Contreras) Anemia hx Breast cancer diagnosed 2020--right--sx/currently receiving chemo Compression fracture of thoracic vertebra Diabetes mellitus type 1 + insulin pump/follows with [facility] 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 Bragg History of colonoscopy (11/14/09) Dr. Martinez, scattered sigmoid diverticuli, follow-up 10 years History of colonoscopy (03/26/20) Dr Lam, [facility], 5 mm sigmoid polyp History of ERCP (~12/02/19) History of esophagogastroduodenoscopy (EGD) (03/26/20) [facility], large hiatal hernia, nonbleeding duodenal ulcer (done for iron def anemia) History of tonsillectomy and adenoidectomy History of vascular access device APort--left side of chest S/P mastectomy (12/17/19) Right breast, with sentinel lymph node biopsy, Dr. Preet Burdick, [facility] S/P thyroid biopsy benign Family History Sister Breast cancer Pancreatic cancer Father Cancer Lung cancer Brother Diabetes Brother Diabetes Parkinson disease Grandfather (Maternal) Myocardial infarction Other No family history of adverse response to anesthesia Denies family history of Ovarian cancer Prostate cancer Colorectal cancer Social History Smoking Status: Never smoker Second Hand Exposure: No; Hx Alcohol Use: No Hx Substance Use: No Preferred Language: Belarusian Communication Ability: Effective Visual Impairment: No Limitations Hearing Ability: Normal Manager Math Required: No Beliefs That Will Affect Care: None marital status: / Current Living Situation: Alone current occupational status: retired Other Information That Helps Us Care for You: No Feels Safe at Home: Yes Safety Concerns: Feels Safe At This Time Dental Care, Regularly: Yes Physical Activity Frequency: Does not Exercise Seatbelt Use: always Assistive Devices: Cane and Glasses Assistive Devices Comment: insulin pump Review of Systems Constitutional: no fever, no chills, no sweats and no fatigue Eyes: no blind spots and no discharge Ear, Nose, Mouth, Throat: no hearing loss and no nasal congestion Respiratory: no cough and no dyspnea Cardiovascular: no chest pain, no dyspnea on exertion and no edema Gastrointestinal: no abdominal pain, no nausea, no vomiting, no constipation, no diarrhea/loose stools and no blood in stools Genitourinary: no dysuria Musculoskeletal: + joint pain; no radicular pain and no myalgia Neurologic: no tingling, no numbness and no headache(s) Endocrine: no fatigue Physical Exam Physical Exam: Constitutional: thin, in no apparent distress,laying co mfortably in bed. Eyes: EOMI, pupils equal and reactive bilaterally, no scleral icterus Cardiac: RRR, no murmurs, gallops or rubs. Normal S1, S2 Pulm: CTA BL, no wheezes, rhonchi, crackles or rubs, moving air well throughout both lungs Abd: soft, nontender, nondistended, normal bowel sounds, no rebound or guarding Extremities: 2+ peripheral pulses, mild nonpitting edema bilaterally at the ankles Neuro: no focal deficits, unable to move left leg due to pain, Results & Data Results & Data ([facility]) Vital Signs (Past 12 Hours) Vital Signs Temp Pulse Pulse Resp BP BP Pulse Ox 11/30/20 20:39 100 H 16 149/67 H 94 11/30/20 18:56 100 H 18 149/104 H 95 11/30/20 17:30 104 H 23 96 11/30/20 17:00 96 H 23 11/30/20 16:50 95 H 13 100 11/30/20 16:27 36.3 C L 91 H 20 168/83 H 97 Laboratory Results Laboratory Results WBC 8.04 K/uL (4.8-10.8) 11/30/20 20:19 RBC 4.00 M/uL (4.2-5.4) L 11/30/20 20:19 Hgb 11.5 g/dL (12.0-16.0) L 11/30/20 20:19 Hct 34.7 % (37-47) L 11/30/20 20:19 MCV 86.8 fL (80-100) 11/30/20 20:19 MCH 28.8 pg (25-34) 11/30/20 20:19 MCHC 33.1 g/dL (32-36) 11/30/20 20:19 RDW Std Deviation 46.3 fL (36.4-46.3) 11/30/20 20: RDW Coeff of Mikayla 14.3 % (11.5-14.5) 11/30/20 20:19 Plt Count 187 K/uL (130-400) 11/30/20 20:19 MPV 10.0 fL (7.4-10.4) 11/30/20 20:19 Immature Gran % (Auto) 0.1 % 11/30/20 20:19 Neut % (Auto) 66.0 % 11/30/20 20:19 Lymph % (Auto) 18.2 % 11/30/20 20:19 Vilas % (Auto) 12.6 % 11/30/20 20:19 Eos % (Auto) 2.9 % 11/30/20 20:19 Baso % (Auto) 0.2 % 11/30/20 20:19 Neut # (Auto) 5.31 K/uL (1.4-6.5) 11/30/20 20:19 Lymph # (Auto) 1.46 K/uL (1.2-3.4) 11/30/20 20:19 Vilas # (Auto) 1.01 K/uL (0.11-0.59) H 11/30/20 20:19 Eos # (Auto) 0.23 K/uL (0-0.5) 11/30/20 20:19 Baso # (Auto) 0.02 K/uL (0-0.2) 11/30/20 20:19 Immature Gran # (Auto) 0.01 K/uL (0.00-0.02) 11/30/20 20:19 PT 13.0 Seconds (9.0-12.0) H 11/30/20 20:19 INR 1.3 (0.9-1.1) H 11/30/20 20:19 APTT 36.8 Seconds (21.0-31.0) H 11/30/20 20:19 PTT Ratio 1.4 11/30/20 20:19 Sodium 138 mmol/L (136-145) 11/30/20 20:19 Potassium 3.9 mmol/L (3.5-5.1) 11/30/20 20:19 Chloride 104 mmol/L (98-107) 11/30/20 20:19 Carbon Dioxide 27 mmol/L (21-32) 11/30/20 20:19 Anion Gap 7.0 (3-11) 11/30/20 20:19 BUN 20 mg/dl (7-18) H 11/30/20 20:19 Creatinine 0.89 mg/dl (0.6-1.2) 11/30/20 20:19 Est Cr Clr Drug Dosing Not Reportable 11/30/20 20:19 Est GFR ( Amer) 70.9 ml/min 11/30/20 20:19 Est GFR (Non-Af Amer) 61.2 ml/min 11/30/20 20:19 BUN/Creatinine Ratio 22.2 (10-20) H 11/30/20 20:19 Glucose 136 mg/dl (70-99) H 11/30/20 20:19 Calcium 9.3 mg/dl (8.5-10.1) 11/30/20 20:19 Total Bilirubin 1.1 mg/dl (0.2-1) H 11/30/20 20:19 AST 40 U/L (15-37) H 11/30/20 20:19 ALT 26 U/L (12-78) 11/30/20 20:19 Alkaline Phosphatase 147 U/L (45-117) H 11/30/20 20:19 Total Protein 6.7 gm/dl (6.4-8.2) 11/30/20 20:19 Albumin 2.8 gm/dl (3.4-5.0) L 11/30/20 20:19 Globulin 3.9 gm/dl (2.5-4.0) 11/30/20 20:19 Albumin/Globulin Ratio 0.7 (0.9-2) L 11/30/20 20:19 Urine Color Yellow 11/30/20 20:20 Urine Appearance Clear (Clear) 11/30/20 20:20 Urine pH 7.5 (4.5-7.5) 11/30/20 20:20 Ur Specific [place] 1.010 (1.000-1.030) 11/30/20 20:20 Urine Protein 1+ (Negative) H 11/30/20 20:20 Urine Glucose (UA) Negative (Negative) 11/30/20 20:20 Urine Ketones Negative (Negative) 11/30/20 20:20 Urine Blood Negative (Negative) 11/30/20 20:20 Urine Nitrite Positive (Negative) A 11/30/20 20:20 Urine Bilirubin Negative (Negative) 11/30/20 20:20 Urine Urobilinogen Negative (Negative) 11/30/20 20:20 Ur Leukocyte Esterase Trace (Negative) H 11/30/20 20:20 Urine WBC (Auto) 5-10 /hpf (0-5) H 11/30/20 20:20 Urine RBC (Auto) 0-4 /hpf (0-4) 11/30/20 20:20 U Hyaline Cast (Auto) 0 /lpf (0-5) 11/30/20 20:20 U Epithel Cells (Auto) 0-5 /lpf (0-5) 11/30/20 20:20 Urine Bacteria (Auto) 3+ (Negative) H 11/30/20 20:20 COVID-19 Eval Order Covid19 at [facility] 11/30/20 20:20 Blood Type O Positive 11/30/20 20:19 Antibody Screen NEGATIVE 11/30/20 20:19 Impressions Femur X-Ray 11/30/20 16:40 XR femur LT 2V routine, XR hip LT 2V w pelvis CLINICAL HISTORY: Fall. Left hip and femur pain. COMPARISON STUDY: None. FINDINGS: No fracture or dislocation within the pelvis, right hip, or distal left femur. Vascular calcifications are noted. The sacrum is intact. There is a mildly impacted subcapital left femoral neck fracture. Soft tissue swelling within the left lateral hip. No dislocation. IMPRESSION: Mildly impacted subcapital left femoral neck fracture. ACT 112: Negative or not required by law. Electronically signed by: Chung Briscoe M.D. 11/30/2020 7:42 PM Hip/Pelvis X-Ray 11/30/20 16:41 XR femur LT 2V routine, XR hip LT 2V w pelvis CLINICAL HISTORY: Fall. Left hip and femur pain. COMPARISON STUDY: None. FINDINGS: No fracture or dislocation within the pelvis, right hip, or distal left femur. Vascular calcifications are noted. The sacrum is intact. There is a mildly impacted subcapital left femoral neck fracture. Soft tissue swelling within the left lateral hip. No dislocation. IMPRESSION: Mildly impacted subcapital left femoral neck fracture. ACT 112: Negative or not required by law. Electronically signed by: Chung Briscoe M.D. 11/30/2020 7:42 PM Chest X-Ray 11/30/20 17:09 XR chest 1V portable HISTORY: Weakness. fall COMPARISON: Chest 12/05/2019. FINDINGS: No pneumothorax. No pleural effusions. No focal lung consolidations to suggest pneumonia. No evidence for pulmonary edema. There is a moderate hiatus hernia, unchanged. Left subclavian Port-A-Cath runs at the distal SVC. Old, healed right anterior rib fractures are again noted. IMPRESSION: 1. No acute process within the chest. 2. Moderate hiatus hernia, unchanged. ACT 112: Negative or not required by law. Electronically signed by: Chung Briscoe M.D. 11/30/2020 7:32 PM Medications Administered Discontinued Medications Morphine Sulfate (Morphine Sulfate 2 Mg/Ml Carp) 2 mg IV NOW STA Stop: 11/30/20 17:53 Last Admin: 11/30/20 19:29 Dose: 2 mg Documented by: [id number] Code Status & VTE Plan VTE Prophylaxis Plan VTE Prophylaxis will be ordered: Yes Supervising Physician Co-Signing Physician Notes Patient seen and examined, chart reviewed,case discussed with Dr. Vick and I agree with her assessment and plan as above. In brief, patient is an 80yo female presenting with left hip fracture sustained after falling off a picnic table. Patient with history of DM as well as active breast cancer on systemic therapy with Kadcyla. On exam she is afebrile, HD stable, NAD No bruising HEENT - NC/AT, PERRL, MMM, Neck supple Heart - +S1/S2, regular Lungs - CTA Abd - +BS, soft, NT/ND, insulin pump in place Ext - warm, NV intact Labs and images reviewed. Significant for Hgb=11.5, Hct=34.7 Hip Xray with mildly impacted subcapital left femoral neck fracture Assessment/Plan 80yo female with left femoral neck fracture following a fall from a picnic table -Pain control, nausea control -Ortho consultation appreciated -Glycemic management consultation for management of IDDM - patient has insulin pump in place presently -Ceftriaxone for UTI / asymptomatic bacteriuria -Remainder of plan as above Resident Activity Tracking Resident Involvement: Resident Care Provided Care Provided: Adult Hospital Medicine
[2020-11-30] MEDS ORDERED: NALOXONE HCL 0.4 MG/1 ML VIAL/CARP IV PRN (23:57)
[2020-11-30] MEDS ORDERED: ONDANSETRON INJ 2 MG/ML 2 ML VIAL IV PRN (23:57)
[2020-11-30] MEDS ORDERED: HYDROmorphone INJ 0.5 MG/0.5 ML SYR IV PRN (23:57)
[2020-11-30] MEDS ORDERED: PHARMACY GLYCEMIC MGMT CONSULT PRN (23:57)
[2020-11-30] MEDS ORDERED: MAGNESIUM HYDROXIDE SUSP 30 ML UDC PO PRN (23:57)
[2020-11-30] MEDS ORDERED: bisacodyL 10 MG SUPP PR PRN (23:57)
[2020-11-30] MEDS ORDERED: FUROSEMIDE 20 MG TAB PO PRN (23:57)
[2020-12-01] MEDS ORDERED: PATIENT'S HEIGHT AND/OR WEIGHT NEEDED SCH (00:30)
[2020-12-01] MEDS: SODIUM CHLORIDE 0.9% 1000ML 1,000 ML IV SCH ×2 (00:35→08:38)
[2020-12-01] MEDS: HYDROmorphone INJ 0.5 MG/0.5 ML SYR IV PRN ×2 (00:39→20:11)
[2020-12-01] MEDS ORDERED: cefTRIAXone SODIUM 1,000 MG in DEXTROSE 5% 50 ML IV SCH (01:00)
--- NOTE | 2020-12-01 03:47 | Billing Data ---
Date of Service November 30, 2020 Coding Level of Care Code 43895 Initial Inpt Care Lvl 3
[2020-12-01] MEDS ORDERED: DEXTROSE 50% 50 ML SYRINGE IV PRN (06:00)
[2020-12-01] MEDS ORDERED: CARBOHYDRATES FOR HYPOGLYCEMIA PO PRN (06:00)
[2020-12-01] MEDS ORDERED: GLUCOSE 10 TABS/TUBE PO PRN (06:00)
[2020-12-01] MEDS ORDERED: Nursing to Pharmacy Communication SCH ×2 (06:00→15:45)
[2020-12-01] MEDS ORDERED: INSULIN ASPART 100 UNITS/ML VIAL SC PRN (06:00)
[2020-12-01] MEDS ORDERED: GLUCOSE 40% GEL 15 GM TUBE PO PRN (06:00)
[2020-12-01] MEDS: LEVOTHYROXINE SODIUM 100 MCG TABLET PO SCH (06:00)
[2020-12-01] MEDS ORDERED: GLUCAGON FOR INJ 1 MG VIAL SQ PRN (06:00)
[2020-12-01] MEDS ORDERED: NovoLOG INSULIN PUMP PRN (06:05)
[2020-12-01 06:21] LABS: Basophils # (auto) 0.01 K/uL (0-0.2); Basophils % (auto) 0.2 %; Eosinophils # (auto) 0.31 K/uL (0-0.5); Eosinophils % (auto) 4.8 %; Hematocrit (blood only) 34.2 % (37-47); Hemoglobin 11.1 g/dL (12.0-16.0); Immature Granulocytes # (auto) 0.01 K/uL (0.00-0.02); Immature Granulocytes % (auto) 0.2 %; Lymphocytes # (auto) 2.06 K/uL (1.2-3.4); Lymphocytes % (auto) 31.8 %; Mean Corpuscular Hemoglobin 28.5 pg (25-34); Mean Corpuscular Hgb Conc 32.5 g/dL (32-36); Mean Corpuscular Volume 87.7 fL (80-100); Mean Platelet Volume 10.3 fL (7.4-10.4); Monocytes # (auto) 0.89 K/uL (0.11-0.59); Monocytes % (auto) 13.8 %; Neutrophils # (auto) 3.19 K/uL (1.4-6.5); Neutrophils % (auto) 49.2 %; Platelet Count 175 K/uL (130-400); RDW Coefficient of Variation 14.7 % (11.5-14.5); White Blood Count 6.47 K/uL (4.8-10.8)
[2020-12-01] MEDS: INSULIN ASPART 100 UNITS/ML 3 ML PEN SC SCH ×4 (06:29→21:27)
[2020-12-01 06:32] LABS: INR 1.3 (0.9-1.1); Partial Thromboplastin Ratio 1.3; Prothrombin Time 12.9 Seconds (9.0-12.0)
[2020-12-01 06:57] LABS: Albumin Level 2.4 gm/dl (3.4-5.0); BUN Creatinine Ratio 19.3 (10-20); Calcium 8.5 mg/dl (8.5-10.1); Est GFR (African American) 81.9 ml/min; Est GFR (Non-African American) 70.7 ml/min; Potassium 4.1 mmol/L (3.5-5.1)
[2020-12-01 06:59] LABS: Albumin Globulin Ratio 0.7 (0.9-2); Bilirubin,Total 0.9 mg/dl (0.2-1); Globulin 3.5 gm/dl (2.5-4.0); Total Protein 5.9 gm/dl (6.4-8.2)
--- NOTE | 2020-12-01 07:13 | CT Scan Report ---
CT head/brain wo con CLINICAL HISTORY: fall on xarelto COMPARISON STUDY: No previous studies for comparison. TECHNIQUE: Axial CT of the brain is performed from the vertex to the skull base. IV contrast was not administered for this examination. A dose lowering technique was utilized adhering to the principles of ALARA. CT DOSE: FINDINGS: No intra or extra-axial mass lesions are visualized. There is no CT evidence of acute cortical infarc tion. There is no evidence of midline shift. There is no acute hemorrhage. No acute depressed calvar ial fractures are visualized. There are patchy white matter hypodensities likely on a small vessel basis. Mild atrophic changes of brain parenchyma associated with ex vacuo dilatation of ventricles. There is no evidence of acute sinusitis IMPRESSION: 1. No acute intracranial hemorrhage, no midline shift or space occupying lesions. 2. Atrophic changes of brain parenchyma, chronic small vessel ischemia. ACT 112: Negative or not required by law. The above report was generated using voice recognition software. It may contain grammatical, syntax o r spelling errors. Electronically signed by: Odalys Shipley DO 12/01/2020 7:11 AM
[2020-12-01] MEDS: PANTOprazole 40 MG TAB PO SCH (07:22)
[2020-12-01 07:31] LABS: Estimated Average Glucose 295 mg/dl; Hemoglobin A1C 11.9 % (4.5-5.6)
--- NOTE | 2020-12-01 07:33 | CT Scan Report ---
CT OF THE CERVICAL SPINE CLINICAL HISTORY: fall on xarelto COMPARISON STUDY: No previous studies for comparison. Correlation is made with CT of the neck [facility] on July 10, 2020. CT DOSE: 956.21 mGy.cm TECHNIQUE: CT scan of the cervical spine was performed from the skull base to the thoracic inlet. Peyton ges are reviewed in the axial, sagittal, and coronal planes. IV contrast was not administered for thi s examination. A dose lowering technique was utilized adhering to the principles of ALARA. FINDINGS: The visualized portions of the lung apices reveal no evidence of pneumothorax. Mild diffuse septal th ickening is seen bilaterally. Ill-defined area of groundglass attenuation is seen within left upper l obe. Partial opacification of inferior right mastoid air cells are seen, could represent infectious proces s/mastoiditis. The prevertebral soft tissues are normal. No acute fractures or subluxations are visualized. Normal cervical lordosis is preserved. Vertebral body heights are maintained. Intervertebral disc space narrowing with osteophytes are seen at the C6-C7 level. Overall evaluation is limited due to diffuse osteopenia. Multilevel hypertrophic changes of facet and uncovertebral joints are seen. No significant central ca nal stenosis is seen. Neural foraminal narrowing is seen at the C3-C4 and C4-C5 level on the left and at the C4-C5 level on the right. IMPRESSION: 1. No acute fracture or traumatic malalignment. 2. Osteopenia. 3. Possible mastoiditis on the right. 4. Possible pulmonary edema. Questionable groundglass opacity within left upper lung. Please correla te above-mentioned findings with pulmonary symptoms. 5. Multilevel degenerative changes. 6. The rest of findings as above. ACT 112: Negative or not required by law. The above report was generated using voice recognition software. It may contain grammatical, syntax o r spelling errors. Electronically signed by: Odalys Shipley DO 12/01/2020 7:32 AM
--- NOTE | 2020-12-01 09:24 | Pharmacy Report ---
Pharmacy Glycemic Short Note 2 - Date of Service December 01, 2020 - Glycemic Short BSG Results (Last 24 hours): 11/30/20 11/30/20 12/01/20 20:19 23:58 05:34 Glucose 136 H 136 H POC Glucose 139 H 12/01/20 05:49 Glucose POC Glucose 138 H OUTPATIENT ANTIDIABETIC REGIMEN: * Medtronic insulin pump with the following settings: * Goal Range: 120-140 mg/dL (per pump, but outpatient endocrinology notes say goal range should be 140-150 mg/dL) * Basal: 3255-3981 = 0.45 units/hr + 3283-1286 = 0.625 units/hr + 7493-8900 = 0.5 units/hr (12.3 units/day) * Sensitivity Factor: 60 * Carb Ratio: 12 * HbA1c = 11.9% (12/01/20) ASSESSMENT: * 80 yo F admitted overnight secondary to a mechanical fall resulting in a left hip fracture. She is currently NPO and scheduled to have surgery today. Pharmacy has been consulted to assist with inpatient glycemic management. * Patient has T1DM and uses an insulin pump with setting noted above. She does not have a CGM and does fingersticks to monitor her BSGs at home. Plan is to continue insulin pump while inpatient. However, patient does not bolus herself with her pump. * Therefore, Novolog has been ordered with the same correction factor as she uses at home per outpatient endocrinology notes. The carb ratio was slightly loosened given patient's diet will likely be different than at home. * Patient was taken to the OR this afternoon. She remained on her insulin pump throughout the procedure. Postoperative BSG was 88 mg/dL in PACU. Patient was given juice to help with this. No steroids were administered perioperatively. PLAN FOR INPATIENT GLYCEMIC CONTROL: * Basal insulin * Continue Novolog insulin pump * Bolus insulin * NovoLog per scale ACHS or Q6hrs while NPO * Goal Range: Low 110 mg/dL - High 150 mg/dL * Correction Factor: 60 mg/dL/unit * Nutritional / Prandial insulin per carb ratio of 1 unit per 15 grams CHO consumed PLAN FOR DISCHARGE: * To be determined
--- NOTE | 2020-12-01 10:16 | Orthopedic Consultation ---
Date of Service December 01, 2020 Assessment & Plan (1) Hip fracture, left: Talked to patient at bedside. We feel that the best course of action would be to proceed with percutanious fixation of the left hip. Should can be weightbearing as tolerated after. We discussed the risks, benefits of the surgery and decision for surgery was made. I discussed the case with Dr. Craft including the treatment plan and he is in agreement. She understands the risk, benefits, and alternatives to procedures like to proceed. The decision was made for surgery. The patient was seen and examined by Dr. Craft. History of Present Illness Reason for Consultation: Fracture left hip Requesting Physician: . Attending Physician: Ignacio Dos Santos DO Patient is an 80 y/o female who fell yesterday at her home. She does live at home alone. Ambulates independently. She fell getting up from her patio furnitu re Allergies Allergy/AdvReac Type Severity Reaction Status Date / Time lisinopril AdvReac Intermediate ELEVATES Verified 11/30/20 16:59 POTASSIUM LEVELS losartan AdvReac Intermediate ELEVATES Verified 11/30/20 16:59 POTASSIUM LEVELS. Home Medications Medication Instructions Recorded Confirmed Type calcium carbonate-vitamin D3 600 1 tab PO DAILY tab 06/19/19 11/30/20 History mg (1,500 mg)-800 unit tablet Lactobacillus 1 cap PO DAILY cap 09/17/19 11/30/20 History acidophilus-Bifidobac.animalis 31 billion cell capsule cholecalciferol (vitamin D3) 125 125 mcg PO QAM 12/25/19 11/30/20 History mcg (5,000 unit) capsule Novolog U-100 Insulin aspart 100 45 unit CONTINUOUS SUBCUTANEOUS 02/20/20 11/30/20 Rx unit/mL subcutaneous solution INFUSION DAILY 90 Days #40 ml NS (insulin aspart U-100) omeprazole 20 mg tablet,delayed 20 mg PO DAILY 03/27/20 11/30/20 History release furosemide 20 mg tablet (Lasix) 20 mg PO 3XWK #90 tab 04/23/20 11/30/20 Rx levothyroxine 100 mcg tablet 100 mcg PO QAM #90 tab 04/23/20 11/30/20 Rx rivaroxaban 20 mg tablet (Xarelto) 20 mg PO QAM #90 tab 04/23/20 11/30/20 Rx insulin glargine 100 unit/mL 14 unit SUBCUT QPM #10 ml 06/30/20 11/30/20 Rx subcutaneous solution (Lantus U-100 Insulin) blood sugar diagnostic (Contour #100 ea 09/22/20 11/30/20 Rx Next Test Strips) blood-glucose sensor (Dexcom G6 #3 ea 09/22/20 11/30/20 History Sensor) blood-glucose transmitter (Dexcom #1 ea 09/22/20 11/30/20 History G6 Transmitter) subcutaneous insulin pump (MiniMed #1 ea 09/22/20 11/30/20 History 530G Insulin Pump) Past Med/Surg History Medical History Anemia hx Breast cancer diagnosed 2019--right--sx/currently receiving chemo Compression fracture of thoracic vertebra Diabetes mellitus type 1 + insulin pump/[place]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 Bragg History of colonoscopy (11/14/09) Dr. Martinez, scattered sigmoid diverticuli, follow-up 10 years History of colonoscopy (03/26/20) [facility], 5 mm sigmoid polyp History of ERCP (~12/02/19) History of esophagogastroduodenoscopy (EGD) (03/26/20) [facility], large hiatal hernia, nonbleeding duodenal ulcer (done for iron def anemia) History of tonsillectomy and adenoidectomy History of vascular access device APort--left side of chest S/P mastectomy (12/17/19) Right breast, with sentinel lymph node biopsy, Dr. Preet Burdick, [facility] [place] S/P thyroid biopsy benign Family History Sister Breast cancer Pancreatic cancer Father Cancer Lung cancer Brother Diabetes Brother Diabetes Parkinson disease Grandfather (Maternal) Myocardial infarction Other No family history of adverse response to anesthesia Denies family history of Ovarian cancer Prostate cancer Colorectal cancer Social History Smoking Status: Never smoker Second Hand Exposure: No; Hx Alcohol Use: No Hx Substance Use: No Preferred Language: Estonian Communication Ability: Effective Visual Impairment: No Limitations Hearing Ability: Normal 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 Physical Exam Slightly externally rotated left hip. No hip shortening. Pain with internal/external rotation of left hip. Constitutional WD/WN, vitals as above Eyes PERRL, conjunctivae normal, anicteric sclerae ENMT external ear and nose normal, oropharynx normal Neck trachea midline, no thyromegaly Respiratory normal respiratory effort Cardiovascular RRR, no murmur, no edema Gastrointestinal (Abdomen) normal bowel sounds, soft, nontender, no hepatosplenomegaly Psychiatric A+Ox3, euthymic affect Results & Data Results & Data Laboratory Results . Diagnostic Findings X-rays of the left hip do show a valgus impacted left femoral neck fracture. PG Care Time/CCT Total # of Minutes Spent Total Time Spent with Patient: Total time spent is greater than 50% in coordination of care (as documented) at patient's floor/unit and/or counseling patient: Supervising Physician Co-Signing Physician Notes Dr. Noe Craft Coding Level of Care Code 71974 Inpt Consult Level 4 (57 - DECISION FOR SURGERY) Diagnoses Hip fracture, left S72.002A
--- NOTE | 2020-12-01 11:20 | Anesthesiology Consultation ---
Date of Service December 01, 2020 Assessment & Plan Chart Review Chart Review: Acceptable Risk for Surgery and Patient NOT seen in Pre Admission Testing Consults Requested none Additional Notes Pt last took xarelto yesterday and therefore, is not eligible for neuraxial anesthetic. Will discuss GA and placing DNR/DNI on hold when pt arrives in preoperative area. History Surgery Operation Date: 12/01/20 08:20 Proposed Procedures p Left Hip Cannulated Screws - Noe Craft, Height/Weight Height: 5 ft 3 in Weight: 62.5 kg Allergies Allergy/AdvReac Type Severity Reaction Status Date / Time lisinopril AdvReac Intermediate ELEVATES Verified 11/30/20 16:59 POTASSIUM LEVELS losartan AdvReac Intermediate ELEVATES Verified 11/30/20 16:59 POTASSIUM LEVELS. Medications Home Medications Medication Instructions Recorded Confirmed Last Taken calcium carbonate-vitamin D3 600 1 tab PO DAILY tab 06/19/19 11/30/20 11/30/20 mg (1,500 mg)-800 unit tablet Lactobacillus 1 cap PO DAILY cap 09/17/19 11/30/20 11/30/20 acidophilus-Bifidobac.animalis 31 billion cell capsule cholecalciferol (vitamin D3) 125 125 mcg PO QAM 12/25/19 11/30/20 11/30/20 mcg (5,000 unit) capsule Novolog U-100 Insulin aspart 100 45 unit CONTINUOUS SUBCUTANEOUS 02/20/20 11/30/20 11/30/20 unit/mL subcutaneous solution INFUSION DAILY 90 Days #40 ml NS (insulin aspart U-100) omeprazole 20 mg tablet,delayed 20 mg PO DAILY 03/27/20 11/30/20 11/30/20 release furosemide 20 mg tablet (Lasix) 20 mg PO 3XWK #90 tab 04/23/20 11/30/20 11/28/20 levothyroxine 100 mcg tablet 100 mcg PO QAM #90 tab 04/23/20 11/30/20 11/30/20 rivaroxaban 20 mg tablet (Xarelto) 20 mg PO QAM #90 tab 04/23/20 11/30/20 11/30/20 insulin glargine 100 unit/mL 14 unit SUBCUT QPM #10 ml 06/30/20 11/30/20 Unknown subcutaneous solution (Lantus U-100 Insulin) blood sugar diagnostic (Contour #100 ea 09/22/20 11/30/20 Unknown Next Test Strips) blood-glucose sensor (Dexcom G6 #3 ea 09/22/20 11/30/20 Unknown Sensor) blood-glucose transmitter (Dexcom #1 ea 09/22/20 11/30/20 Unknown G6 Transmitter) subcutaneous insulin pump (MiniMed #1 ea 09/22/20 11/30/20 Unknown 530G Insulin Pump) Active Medications Generic Name Dose Route Start Last Admin Trade Name Freq PRN Reason Stop Dose Admin Hydromorphone HCl 0.5 mg 11/30/20 23:57 12/01/20 00:39 Hydromorphone Inj 0.5 Mg/0.5 Ml Syr IV 12/14/20 23:56 0.5 mg Q3H PRN Administration Pain (6,7,8,9,10) Ceftriaxone Sodium 1,000 mg/ 50 mls @ 100 mls/hr 12/01/20 01:00 12/01/20 01:44 Dextrose IV 12/11/20 00:59 Infused Q24H JODI Infusion Protocol Sodium Chloride 1,000 mls @ 120 mls/hr 11/30/20 23:57 12/01/20 08:38 Nss 1000ml IV 12/01/20 16:36 120 mls/hr .Q8H20M JODI Administration Insulin Aspart 0 units 12/01/20 06:15 12/01/20 06:29 Insulin Aspart 100 Units/Ml 3 Ml Pen SC 12/31/20 06:14 Not Given Q6 JODI Protocol Levothyroxine Sodium 100 mcg 12/01/20 06:30 12/01/20 06:00 Levothyroxine Sodium 100 Mcg Tablet PO 12/31/20 06:29 Not Given DAILYBB JODI Pantoprazole Sodium 40 mg 12/01/20 09:00 12/01/20 07:22 Pantoprazole 40 Mg Tab PO 12/31/20 08:59 Not Given DAILY JODI NPO Date Last Intake of Fluids: 11/30/20 Time Last Intake of Fluids: 23:59 Date Last Intake of Solids: 11/30/20 Time Last Intake of Solids: 23:59 Past Medical History Medical History Anemia hx Breast cancer diagnosed 2020--right--sx/currently receiving chemo Compression fracture of thoracic vertebra Diabetes mellitus type 1 + insulin pump/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 Duodenal ulcer Fingernail avulsion, partial GERD (gastroesophageal reflux disease) diet controlled Shane's thyroiditis History of recent blood transfusion 02/25/2020 Hyperlipidemia Hypertension Hypothyroidism Insulin pump in place Osteoarthritis Personal history of Helicobacter infection Subungual hematoma Tendonitis Urinary incontinence Past Family History Family History Sister Breast cancer Pancreatic cancer Father Cancer Lung cancer Brother Diabetes Brother Diabetes Parkinson disease Grandfather (Maternal) Myocardial infarction Other No family history of adverse response to anesthesia Denies family history of Ovarian cancer Prostate cancer Colorectal cancer Past Surgical History Surgical History History of breast biopsy right--malignant History of carpal tunnel release bilateral History of cataract surgery bilateral History of cholecystectomy (12/02/19) Laparoscopic, Dr. Bragg History of colonoscopy (11/14/09) Dr. Martinez, scattered sigmoid diverticuli, follow-up 10 years History of colonoscopy (03/26/20) Dr Lam, [facility], 5 mm sigmoid polyp History of ERCP (~12/02/19) History of esophagogastroduodenoscopy (EGD) (03/26/20) [facility], large hiatal hernia, nonbleeding duodenal ulcer (done for iron def anemia) History of tonsillectomy and adenoidectomy History of vascular access device APort--left side of chest S/P mastectomy (12/17/19) Right breast, with sentinel lymph node biopsy, Dr. Preet Burdick, [facility] [place]/P thyroid biopsy benign Social History Smoking Status: Never smoker Hx Alcohol Use: No Hx Substance Use: No substance use type: does not use Physical Exam Vital Signs Last Vital Signs Temp 37.4 C 12/01/20 07:43 Pulse 87 12/01/20 07:43 Resp 16 12/01/20 07:43 BP 128/72 12/01/20 07:43 Pulse Ox 92 12/01/20 07:43 Testing Laboratory Results 12/01/20 05:34 12/01/20 05:34 PT 12.9 Seconds (9.0-12.0) H 12/01/20 05:34 INR 1.3 (0.9-1.1) H 12/01/20 05:34 APTT 35.0 Seconds (21.0-31.0) H 12/01/20 05:34 Hemoglobin A1c 11.9 % (4.5-5.6) H 12/01/20 05:34 Urine Color Yellow 11/30/20 20:20 Urine Appearance Clear (Clear) 11/30/20 20:20 Urine pH 7.5 (4.5-7.5) 11/30/20 20:20 Ur Specific [place] 1.010 (1.000-1.030) 11/30/20 20:20 Urine Protein 1+ (Negative) H 11/30/20 20:20 Urine Glucose (UA) Negative (Negative) 11/30/20 20:20 Urine Ketones Negative (Negative) 11/30/20 20:20 Urine Nitrite Positive (Negative) A 11/30/20 20:20 Ur Leukocyte Esterase Trace (Negative) H 11/30/20 20:20 Urine WBC (Auto) 5-10 /hpf (0-5) H 11/30/20 20:20 Urine RBC (Auto) 0-4 /hpf (0-4) 11/30/20 20:20 U Hyaline Cast (Auto) 0 /lpf (0-5) 11/30/20 20:20 U Epithel Cells (Auto) 0-5 /lpf (0-5) 11/30/20 20:20 Urine Bacteria (Auto) 3+ (Negative) H 11/30/20 20:20 Blood Type Cancelled 12/01/20 00:22 Antibody Screen Cancelled 12/01/20 00:22 11/30/20 20:20 Urine Culture - Preliminary Urine,Straight Cath Gram negative bacilli 12/01/20 11/30/20 05:49 23:58 POC Glucose 138 H 139 H Electrocardiogram Date: 11/30/20 Findings: + NSR @ (102) Nonspecific ST and T wave abnormality, when compared with ECG of 12/01/19 nonspecific T wave abnormality now evident in lateral leads.
[2020-12-01] MEDS ORDERED: MIDAZOLAM HCL 1 MG/ML 2ML VIAL ONE (11:33)
[2020-12-01] MEDS ORDERED: fentaNYL citrate 100 MCG/2 ML VIAL ONE (11:33)
[2020-12-01] MEDS ORDERED: PROPOFOL IV EMULSION 10 MG/ML 20 ML VIAL IV ONE (11:34)
[2020-12-01] MEDS ORDERED: LIDOCAINE 2% 2 ML VIAL/AMP(20MG/ML) INFIL ONE (11:34)
[2020-12-01] MEDS ORDERED: BUPIVACAINE 0.5 % 5 MG/1 ML MPF 30ML VIAL ONE (11:49)
[2020-12-01] MEDS ORDERED: EPINEPHrine INJ 1 MG/ML AMP ONE (11:49)
[2020-12-01] MEDS ORDERED: ONDANSETRON INJ 2 MG/ML 2 ML VIAL IV PRN (12:22)
[2020-12-01] MEDS ORDERED: ePHEDrine sulfate 50 MG/ML AMP IV PRN (12:22)
[2020-12-01] MEDS ORDERED: ATROPINE SULFATE 0.1 MG/ML 10ML SYR IV PRN (12:22)
--- NOTE | 2020-12-01 13:47 | Operative Report ---
PG Post Operative Report Pre & Post Diagnosis Operation Date: 12/01/20 08:20 Pre-Op Diagnosis: Valgus impacted left femoral neck fracture Post-Op Diagnosis: Valgus impacted left femoral neck fracture I identified the patient and participated in the time-out.: Yes Procedure Operation Date: 12/01/20 08:20 Actual Procedures p Left Hip Cannulated Screws(Left) - Noe Craft DO Surgeon Noe Craft DO Song Writer Noe Batres PAC Estimated Blood Loss 20 Findings Consistent with Post-Op Diagnosis Specimens None Complications none Disposition Disposition: Recovery Room Indications Colleen is a pleasant 80-year-old female who fell late yesterday while at home. She had left hip pain. She came to the hospital and radiographs demonstrated a valgus impacted left femoral neck fracture. She was admitted to the medicine service and orthopedics was consulted. After discussions at bedside, she elected proceed with a cannulated screw fixation of her left hip. Description of Procedure On December 01, 2020 Colleen was brought down from her hospital room to the preoperative holding area. The operative extremity was identified and signed. She was taken back to the operating room and laid on the table in supine position. She was put under general anesthesia. She was then transferred to a fracture table. The left leg was brought off the traction. Left hip was then prepped and draped in sterile fashion. A timeout was done. The patient and the operative extremity was properly identified. A longitudinal incision was made over the proximal lateral femur. Dissection was taken down through the fascia. A single guidepin was then placed on the lateral femoral cortex. It was advanced along the inferior cortex of the femoral neck and into the femoral head. An additional guidepin was placed along the anterior cortex. A third guidepin was placed along the posterior cortex. The lateral cortex was then drilled for all 3 guidepins. The screw lengths were then measured and screws were placed. A Synthes short partially-threaded 7.3 mm cannulated screws. Final fluoroscopic images showed anatomic alignment of the fracture and acceptable placement of the cannulated screws. The wound was then irrigated. The skin was closed with 2-0 Vicryl and kenneth. She was placed in a soft dressing. She was then transferred to hospital bed and taken to the postanesthesia care unit in stable condition. She tolerated the procedure well. Noe Batres PA-C, was present for the entire procedure. He was critical for patient positioning, prepping, draping, retraction exposure, wound closure and application of sterile dressing. I attest to the content of the Intraoperative Record and any orders documented therein. Any exceptions are noted below.
[2020-12-01] MEDS: fentaNYL citrate 100 MCG/2 ML VIAL IV PRN ×2 (14:03→14:09)
--- NOTE | 2020-12-01 14:17 | Anesthesiology Progress Note ---
Date of Service December 01, 2020 Anesthesia Post Procedure Vital Signs Vital Signs: Temp Pulse Pulse Pulse Resp BP BP 12/01/20 13:51 36.6 C 101 H 16 178/85 H 12/01/20 11:52 37.6 C H 97 H 18 159/74 H 12/01/20 07:43 37.4 C 87 16 128/72 12/01/20 07:10 12/01/20 00:18 37.1 C 91 H 18 11/30/20 23:45 37.1 C 91 H 16 11/30/20 23:05 93 H 16 149/67 H 11/30/20 21:33 93 H 16 147/68 H 11/30/20 20:39 100 H 16 149/67 H 11/30/20 18:56 100 H 18 149/104 H 11/30/20 17:30 104 H 23 11/30/20 17:00 96 H 23 11/30/20 16:50 95 H 13 11/30/20 16:27 36.3 C L 91 H 20 168/83 H BP Pulse Ox Pulse Ox 12/01/20 13:51 100 12/01/20 11:52 92 12/01/20 07:43 92 12/01/20 07:10 92 12/01/20 00:18 150/77 H 91 11/30/20 23:45 150/77 H 91 11/30/20 23:05 94 11/30/20 21:33 97 11/30/20 20:39 94 11/30/20 18:56 95 11/30/20 17:30 96 11/30/20 17:00 11/30/20 16:50 100 11/30/20 16:27 97 Pain Intensity Left Hip: Pain Intensity: 7 Transfer of Care Handoff Completed per policy Notes Mental Status: alert / awake / arousable and participated in evaluation Patient Amnestic to Procedure: Yes Nausea / Vomiting: adequately controlled Pain: adequately controlled Airway Patency, RR, SpO2: stable & adequate BP & HR: stable & adequate Hydration State: stable & adequate Anesthetic Complications: no major complications apparent and Pt Satisfied with anesthetic care Notes: Pts BG was 88 in PACU - basal rate on pump stopped at 14:13 and patient given apple juice in recovery.
--- NOTE | 2020-12-01 14:18 | XRay Report ---
XR hip LT min 2V HISTORY: 80 years-old Female Post-Operative implant position COMPARISON: Left femur radiographs 11/30/2020 TECHNIQUE: 2 radiographic views of the left hip FINDINGS: There are 3 cannulated screws of the left femoral neck traversing the acute femoral neck fracture. Th ere is improved alignment. The hardware appears intact. Lateral skin kenneth with expected postoperat tone soft tissue swelling and deep tissue air. Mild left hip osteoarthritis with demineralized appeara nce of the bones. Arterial calcifications. IMPRESSION: ORIF of the acute left femoral neck fracture with expected postoperative changes. ACT 112: Negative or not required by law. The above report was generated using voice recognition software. It may contain grammatical, syntax o r spelling errors. Electronically signed by: Tiburcio Palacio M.D. 12/01/2020 2:16 PM
[2020-12-01] MEDS ORDERED: NALOXONE HCL 0.4 MG/1 ML VIAL/CARP IV PRN (14:42)
--- NOTE | 2020-12-01 16:05 | Fluoroscopy Report ---
FL hip LT 2-3V CLINICAL HISTORY: LT CANNULATED SCREWS COMPARISON STUDY: None FLUOROSCOPY TIME: 40 seconds. NUMBER OF FLUOROSCOPIC IMAGES: 2 FINDINGS: Intraoperative fluoroscopic images are presented for review. Metallic screws are seen within the anatomical region of the left proximal femur. IMPRESSION: As above. ACT 112: Negative or not required by law. The above report was generated using voice recognition software. It may contain grammatical, syntax o r spelling errors. Electronically signed by: Odalys Shipley DO 12/01/2020 4:03 PM
--- NOTE | 2020-12-01 16:19 | Electrocardiogram Report ---
Test Reason : Blood Pressure : / mmHG Vent. Rate : 102 BPM Atrial Rate : 102 BPM P-R Int : 164 ms QRS Dur : 070 ms QT Int : 324 ms P-R-T Axes : 056 057 014 degrees QTc Int : 422 ms Sinus tachycardia Nonspecific ST and T wave abnormality Abnormal ECG When compared with ECG of 01-DEC-2019 02:31, Nonspecific T wave abnormality now evident in Lateral leads Confirmed by Brad Javier ([id number]) on 12/01/2020 4:19:34 PM Referred By: REFERRED SELF Confirmed By:Brad Javier
--- NOTE | 2020-12-01 17:50 | Hospitalist Progress Note ---
Date of Service December 01, 2020 Assessment & Plan (1) Hip fracture, left: Plan: 80 yo F with extensive medical hx significant for IDDM1, breast cancer undergoing treatment, hx DVT, admitted for left hip fracture management. 1. L Hip Fx - Primary management by [facility] [place] orthopedics - hold xarelto, trend PT/INR, APTT - SCDs for DVT ppx - Pain management: 0.25 mg IV Dilaudid for pain 1-5, 0.5 mg IV Dilaudid for pain 6+ - pressure ulcer precautions 2. IDDM1 - pharmacy glycemic management - patient has insulin pump, but is not as compliant with keeping sugars in range. 3. Breast Cancer undergoing treatment - has completed chemotherapy, currently undergoing targeted treatments - treatments [id number], next is on 12/04 4. Hypothyroidism - cont levothyroxine 5. 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 Choledocholithiasis - chronic, monitor LFTs and symptoms DVT ppx: SCDs FEN/GI: carb healthy, DM1, famotidine IV BID Bowel Regimen: Miralax, docusate, senna Code Status: DNR/DNI (2) Breast cancer: (3) Uncontrolled type 1 diabetes mellitus: (4) Secondary hyperparathyroidism: (5) Diabetic peripheral neuropathy: (6) Anemia: (7) Gastritis: (8) Choledocholithiasis: (9) Deep vein thrombosis (DVT) of right lower extremity: (10) Pulmonary nodules: (11) IPMN (intraductal papillary mucinous neoplasm): Admission and Anticipated Discharge Date Admission Date: November 30, 2020 Supervising Physician Co-Signing Physician Notes I personally examined the patient and verified all jackson points of history and exam, discussed case, and agree with decision making with Dr Vick. Feeling okay preoppain under reasonable control, obviously worse when she moves. Vitals noted, in general she is awake and alert pleasant no distress. HEENT normocephalic atraumatic mucous membranes moist. Wheezing unlabored no accessory muscle use good effort. Skin shows no rashes no pallor or icterus. Neuro without focal deficits. Hip fracturehave to assume probably osteoporoticfor repair. Outpatient bone health work-up and management. PT/OT eval and treat. Otherwise as above. Subjective Patient in good spirits s/p L hip fracture repair. No complaints. Review of Systems Constitutional: no fever, no chills, no sweats and no fatigue Eyes: no blind spots and no discharge Ear, Nose, Mouth, Throat: no hearing loss and no nasal congestion Respiratory: no cough and no dyspnea Cardiovascular: no chest pain, no dyspnea on exertion and no edema Gastrointestinal: no abdominal pain, no nausea, no vomiting, no constipation, no diarrhea/loose stools and no blood in stools Genitourinary: no dysuria Musculoskeletal: + joint pain; no radicular pain and no myalgia Neurologic: no tingling, no numbness and no headache(s) Endocrine: no fatigue Physical Exam Physical Exam: Constitutional: thin, in no apparent distress, laying comfortably in bed. Eyes: EOMI, pupils equal and reactive bilaterally, no scleral icterus Cardiac: RRR, no murmurs, gallops or rubs. Normal S1, S2 Pulm: CTA BL, no wheezes, rhonchi, crackles or rubs, moving air well throughout both lungs Abd: soft, nontender, nondistended, normal bowel sounds, no rebound or guarding Extremities: 2+ peripheral pulses, mild nonpitting edema bilaterally at the ankles Neuro: no focal deficits, unable to move left leg due to surgery. Results & Data Results & Data ([facility]) Vital Signs (Past 12 Hours) Vital Signs Temp Pulse Pulse Resp BP BP Pulse Ox 12/01/20 17:46 37.8 C H 92 H 18 154/83 H 92 12/01/20 17:08 37.3 C 96 H 18 157/72 H 98 12/01/20 15:43 18 155/73 H 96 12/01/20 15:23 36.7 C 94 H 18 150/70 H 93 12/01/20 14:48 36.8 C 96 H 18 145/75 H 94 12/01/20 14:30 96 H 17 164/72 H 96 12/01/20 14:20 37.1 C 98 H 24 166/86 H 98 12/01/20 14:10 100 H 21 173/80 H 96 12/01/20 14:00 102 H 21 159/91 H 100 12/01/20 13:51 36.6 C 101 H 16 178/85 H 100 12/01/20 11:52 37.6 C H 97 H 18 159/74 H 92 12/01/20 07:43 37.4 C 87 16 128/72 92 12/01/20 07:10 Pulse Ox 12/01/20 17:46 12/01/20 17:08 12/01/20 15:43 12/01/20 15:23 12/01/20 14:48 12/01/20 14:30 12/01/20 14:20 12/01/20 14:10 12/01/20 14:00 12/01/20 13:51 12/01/20 11:52 12/01/20 07:43 12/01/20 07:10 92 Resident Activity Tracking Resident Involvement: Resident Care Provided Care Provided: Adult Hospital Medicine
--- NOTE | 2020-12-01 19:41 | Billing Data ---
Date of Service December 01, 2020 Coding Level of Care Code 25578 Subseq Hosp Care Lvl 3
[2020-12-01] MEDS: HEPARIN 100 UNIT/ML 5ML FLUSH FLUSH PRN (20:11)
[2020-12-01] MEDS: DOCUSATE SODIUM/SENNA 50/8.6MG TAB PO SCH (20:12)
[2020-12-01] MEDS ORDERED: LANTUS PER UNIT CHARGE SQ SCH (21:00)
[2020-12-02] MEDS: cefTRIAXone SODIUM 1,000 MG in DEXTROSE 5% 50 ML IV SCH (02:14)
[2020-12-02] MEDS: HEPARIN 100 UNIT/ML 5ML FLUSH FLUSH PRN ×2 (02:47→05:24)
[2020-12-02] MEDS: HYDROmorphone INJ 0.5 MG/0.5 ML SYR IV PRN ×2 (05:24→19:23)
[2020-12-02] MEDS: LEVOTHYROXINE SODIUM 100 MCG TABLET PO SCH (05:25)
--- NOTE | 2020-12-02 06:47 | Orthopedic Progress Note ---
Date of Service December 02, 2020 Assessment & Plan (1) Hip fracture, left: Overall she is doing fairly well. The surgery went well yesterday. She can be weight-bear as tolerated on the left hip. She will remain on Xarelto for DVT prophylaxis. She is orthopedically stable for discharge when medically ready. Full orthopedic discharge instructions were placed in the discharge summary. If you have any questions please feel free to contact me at [phone] Shama Macias was seen and examined at bedside this morning. Overall she is doing very well. She is not having any pain in the left hip while she is lying down. She said she was sitting on the edge of the bed last evening and she was having some hip pain. She has no new complaints.. Review of Systems All systems reviewed & are unremarkable except as noted in HPI & below. Physical Exam On physical examination of the left hip, the dressing is clean and dry. Her leg lengths are equal. She has active dorsiflexion plantarflexion of her left ankle.. Results & Data Results & Data Laboratory Results . Diagnostic Findings Postoperative x-rays of the left hip show the hardware to be in anatomic alignment.. PG Care Time/CCT Total # of Minutes Spent Total Time Spent with Patient: Total time spent is greater than 50% in coordination of care (as documented) at patient's floor/unit and/or counseling patient: Coding Level of Care Code 95416 Post Operative Follow-Up Diagnoses Hip fracture, left S72.002A
[2020-12-02] MEDS: RIVAROXABAN 20 MG TAB PO SCH (08:29)
[2020-12-02] MEDS: PANTOprazole 40 MG TAB PO SCH (08:29)
[2020-12-02] MEDS: INSULIN ASPART 100 UNITS/ML 3 ML PEN SC SCH ×4 (08:31→21:48)
[2020-12-02] MEDS ORDERED: INSULIN GLARGINE SOLOSTAR 100 UNITS/ML 3 ML PEN SC ONE (12:45)
[2020-12-02] MEDS ORDERED: STAT IV Infusion **Titration per Protocol STA (15:59)
[2020-12-02] MEDS ORDERED: MODERATE STRESS LEVEL ONE (15:59)
[2020-12-02] MEDS ORDERED: INSULIN PROTOCOL GOAL RANGE ONE (15:59)
[2020-12-02] MEDS ORDERED: INSULIN REGULAR 250 UNITS in SODIUM CHLORIDE 0.9% 247.5 ML IV SCH (16:00)
--- NOTE | 2020-12-02 16:13 | Pharmacy Report ---
Pharmacy Glycemic Short Note 2 - Date of Service December 02, 2020 - Glycemic Short BSG Results (Last 24 hours): 12/01/20 12/01/20 12/02/20 17:14 20:40 08:16 POC Glucose 152 H 137 H 309 H* 12/02/20 12/02/20 12/02/20 08:17 12:09 12:10 POC Glucose 344 H* 422 H* 446 H* 12/02/20 15:17 POC Glucose 512 H* OUTPATIENT ANTIDIABETIC REGIMEN: * Medtronic insulin pump with the following settings: * Goal Range: 120-140 mg/dL (per pump, but outpatient endocrinology notes say goal range should be 140-150 mg/dL) * Basal: 6412-6914 = 0.45 units/hr + 5101-4872 = 0.625 units/hr + 7496-4975 = 0.5 units/hr (12.3 units/day) * Sensitivity Factor: 60 * Carb Ratio: 12 * HbA1c = 11.9% (12/01/20) ASSESSMENT: 12/02 * Blood sugar significantly elevated this morning, was still elevated at lunch, removed insulin pump and gave lantus dose which was given @1430 * BSGs continue to trend up, started insulin infusion at 1.5 units/hr, can transition off when BSGs in goal range x 2 and rate < 2 units/hr as lantus dose has been given, BMP ordered 12/01 * 80 yo F admitted overnight secondary to a mechanical fall resulting in a left hip fracture. She is currently NPO and scheduled to have surgery today. Pharmacy has been consulted to assist with inpatient glycemic management. * Patient has T1DM and uses an insulin pump with setting noted above. She does not have a CGM and does fingersticks to monitor her BSGs at home. Plan is to continue insulin pump while inpatient. However, patient does not bolus herself with her pump. * Therefore, Novolog has been ordered with the same correction factor as she uses at home per outpatient endocrinology notes. The carb ratio was slightly loosened given patient's diet will likely be different than at home. * Patient was taken to the OR this afternoon. She remained on her insulin pump throughout the procedure. Postoperative BSG was 88 mg/dL in PACU. Patient was given juice to help with this. No steroids were administered perioperatively. PLAN FOR INPATIENT GLYCEMIC CONTROL: * Start insulin infusion; received 13 units of lantus (same as home dosing) * Bolus insulin * Carb ratio 1:10 PLAN FOR DISCHARGE: * To be determined
[2020-12-02] MEDS ORDERED: INSULIN HUMAN REGULAR IV BOLUS 1.5 UNITS in SYRINGE 0 ML IV ONE (16:15)
[2020-12-02 17:09] LABS: BUN Creatinine Ratio 15.9 (10-20); Calcium 8.4 mg/dl (8.5-10.1); Creatinine Clr Calc Pharmacy 19.5 ml/min; Est GFR (African American) 28.4 ml/min; Est GFR (Non-African American) 24.5 ml/min; Potassium 6.1 mmol/L (3.5-5.1)
[2020-12-02 17:21] LABS: Beta-Hydroxybutyrate 45.51 mg/dl (0.2-2.81)
--- NOTE | 2020-12-02 18:42 | Hospitalist Progress Note ---
Date of Service December 02, 2020 Assessment & Plan (1) Hip fracture, left: Plan: 80 yo F with extensive medical hx significant for IDDM1, breast cancer undergoing treatment, hx DVT, admitted for left hip fracture management. 1. L Hip Fx - Primary management by [facility] orthopedics - salina truong, rani PT/INR, APTT - SCDs for DVT ppx - Pain management: 0.25 mg IV Dilaudid for pain 1-5, 0.5 mg IV Dilaudid for pain 6+ - pressure ulcer precautions - working with PT/OT 2. IDDM1 - pharmacy glycemic management - patient has insulin pump, but is not as compliant with keeping sugars in range. - insulin pump failure --> gave patient 13 units basal insulin --> sugar kept rising to 500s, potassium 6.1 --> patient placed on IV insulin 1.5units/hr; will monitor glucose every hour - will get serial BMPs every 2 hours to monitor potassium, should correct itself with insulin infusion - clinically patient is no acute distress with no signs of hypovolemia 3. Breast Cancer undergoing treatment - has completed chemotherapy, currently undergoing targeted treatments - treatments [id number], next is on 12/04 4. Hypothyroidism - cont levothyroxine 5. 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 Choledocholithiasis - chronic, monitor LFTs and symptoms DVT ppx: SCDs FEN/GI: carb healthy, DM1, famotidine IV BID Bowel Regimen: Miralax, docusate, senna Code Status: DNR/DNI (2) Breast cancer: (3) Uncontrolled type 1 diabetes mellitus: (4) Secondary hyperparathyroidism: (5) Diabetic peripheral neuropathy: (6) Anemia: (7) Gastritis: (8) Choledocholithiasis: (9) Deep vein thrombosis (DVT) of right lower extremity: (10) Pulmonary nodules: (11) IPMN (intraductal papillary mucinous neoplasm): Admission and Anticipated Discharge Date Admission Date: November 30, 2020 Supervising Physician Co-Signing Physician Notes I personally examined the patient and verified all jackson points of history and exam, discussed case, and agree with decision making with Dr Vick. saw when she was doing PT. did very well. later insulin pump failed - hyperglycemic dehydration w SETH and hyperkalemia - see resident note Vitals noted, in general she is awake and alert pleasant no distress. HEENT normocephalic atraumatic mucous membranes moist. breathing unlabored no accessory muscle use good effort. Skin shows no rashes no pallor or icterus. Neuro without focal deficits. Hip fracturehave to assume probably osteoporoticnow s/p repair. Outpatient bone health work-up and management. PT/OT eval and treat. for rehab DM1 w insulin pump failure and subsequent hyperglycemic dehydration - insulin, low threshold for fluids, follow closely clinically/move to telemetry/serial labs Otherwise as above. Subjective s/p L hip fracture repair. Working with PT/OT for recovery. Blood sugar spiked up in the afternoon. Denies SOB, rapid breathing, fever, polyuria. Has been thirsty today. Review of Systems Constitutional: no fever, no chills, no sweats and no fatigue Respiratory: no cough and no dyspnea Cardiovascular: no chest pain, no dyspnea on exertion and no edema Gastrointestinal: no abdominal pain, no nausea, no vomiting, no constipation, no diarrhea/loose stools and no blood in stools Genitourinary: no dysuria Musculoskeletal: + joint pain; no radicular pain and no myalgia Neurologic: no tingling, no numbness and no headache(s) Endocrine: no fatigue Physical Exam Physical Exam: Constitutional: thin, in no apparent distress, laying comfortably in bed. Eyes: EOMI, pupils equal and reactive bilaterally, no scleral icterus Cardiac: tachycardic, regular rhythm, no murmurs, gallops or rubs. Normal S1, S2 Pulm: CTA BL, no wheezes, rhonchi, crackles or rubs, moving air well throughout both lungs Abd: soft, nontender, nondistended, normal bowel sounds, no rebound or guarding Extremities: 2+ peripheral pulses, mild nonpitting edema bilaterally at the ankles Neuro: no focal deficits, limited movement of left leg due to surgery. Results & Data Results & Data ([facility]) Vital Signs (Past 12 Hours) Vital Signs Temp Pulse Resp BP BP Pulse Ox 12/02/20 14:53 36.8 C 108 H 16 145/68 H 95 12/02/20 07:21 37.1 C 87 16 117/64 95 Resident Activity Tracking Resident Involvement: Resident Care Provided Care Provided: [facility] Medicine
[2020-12-02 19:02] LABS: BUN Creatinine Ratio 16.4 (10-20); Calcium 7.9 mg/dl (8.5-10.1); Creatinine Clr Calc Pharmacy 18.3 ml/min; Est GFR (African American) 26.2 ml/min; Est GFR (Non-African American) 22.6 ml/min; Potassium 5.2 mmol/L (3.5-5.1)
[2020-12-02] MEDS ORDERED: SODIUM CHLORIDE 0.9% 1000ML 1,000 ML IV ONE (19:07)
[2020-12-02 19:17] LABS: Beta-Hydroxybutyrate 34.09 mg/dl (0.2-2.81)
[2020-12-02 21:25] LABS: BUN Creatinine Ratio 15.2 (10-20); Calcium 7.7 mg/dl (8.5-10.1); Creatinine Clr Calc Pharmacy 17.6 ml/min; Est GFR (Non-African American) 21.6 ml/min; Potassium 4.7 mmol/L (3.5-5.1)
[2020-12-02 21:35] LABS: Beta-Hydroxybutyrate 10.4 mg/dl (0.2-2.81)
[2020-12-02] MEDS: DOCUSATE SODIUM/SENNA 50/8.6MG TAB PO SCH (21:39)
[2020-12-03] MEDS: cefTRIAXone SODIUM 1,000 MG in DEXTROSE 5% 50 ML IV SCH (00:44)
[2020-12-03] MEDS: LEVOTHYROXINE SODIUM 100 MCG TABLET PO SCH (05:46)
[2020-12-03] MEDS: RIVAROXABAN 20 MG TAB PO SCH (07:59)
[2020-12-03] MEDS: DOCUSATE SODIUM/SENNA 50/8.6MG TAB PO SCH (07:59)
[2020-12-03] MEDS: PANTOprazole 40 MG TAB PO SCH (07:59)
[2020-12-03] MEDS: INSULIN ASPART 100 UNITS/ML 3 ML PEN SC SCH ×5 (08:19→20:39)
[2020-12-03] MEDS ORDERED: INSULIN GLARGINE SOLOSTAR 100 UNITS/ML 3 ML PEN SC ONE (08:45)
[2020-12-03 08:50] LABS: BUN Creatinine Ratio 22.6 (10-20); Calcium 7.9 mg/dl (8.5-10.1); Creatinine Clr Calc Pharmacy 22.5 ml/min; Est GFR (African American) 33.9 ml/min; Est GFR (Non-African American) 29.2 ml/min; Potassium 4.2 mmol/L (3.5-5.1)
[2020-12-03] MEDS: NSS + 20MEQ KCL 20 MEQ/1,000 ML BAG IV SCH ×2 (12:16→19:30)
--- NOTE | 2020-12-03 13:32 | Pharmacy Report ---
Pharmacy Glycemic Short Note 2 - Date of Service December 03, 2020 - Glycemic Short BSG Results (Last 24 hours): 12/02/20 12/02/20 12/02/20 15:17 16:04 17:22 Glucose 597 H* POC Glucose 512 H* 478 H* 12/02/20 12/02/20 12/02/20 18:19 18:29 19:31 Glucose 542 H* POC Glucose 563 H* 550 H* 12/02/20 12/02/20 12/02/20 20:35 20:36 21:38 Glucose 426 H* POC Glucose 442 H* 474 H* 12/02/20 12/02/20 12/02/20 22:38 23:30 23:48 Glucose POC Glucose 430 H* 346 H* 333 H* 12/03/20 12/03/20 12/03/20 00:36 01:20 02:17 Glucose POC Glucose 276 H 263 H 207 H 12/03/20 12/03/20 12/03/20 03:27 04:09 04:32 Glucose POC Glucose 126 H 94 88 12/03/20 12/03/20 12/03/20 05:28 06:08 07:05 Glucose POC Glucose 80 115 H 140 H 12/03/20 12/03/20 12/03/20 07:50 08:04 09:02 Glucose 141 H POC Glucose 145 H 146 H 12/03/20 12/03/20 12/03/20 10:06 11:01 11:57 Glucose POC Glucose 148 H 142 H 122 H OUTPATIENT ANTIDIABETIC REGIMEN: * Medtronic insulin pump with the following settings: * Goal Range: 120-140 mg/dL (per pump, but outpatient endocrinology notes say goal range should be 140-150 mg/dL) * Basal: 7723-1110 = 0.45 units/hr + 1357-4610 = 0.625 units/hr + 6905-2788 = 0.5 units/hr (12.3 units/day) * Sensitivity Factor: 60 * Carb Ratio: 12 * HbA1c = 11.9% (12/01/20) ASSESSMENT: 12/03 * Patient continues on insulin drip from overnight - running at 1.6 units/hr this AM. Drip rates overnight not stable, up to 5 units/hr at one point. Unclear if labile BSGs related to infection. * Had been given 13 units (home basal insulin) prior to starting insulin infusion yesterday and BSGs were trending upward. * Increased to 16 units x 1 this AM to help with drip transition as anion gap now closed. This is about ~25% increase in home basal dosing * Insulin drip held at lunch time as BSGs stable 12/02 * Blood sugar significantly elevated this morning, was still elevated at lunch, removed insulin pump and gave lantus dose which was given @1430 * BSGs continue to trend up, started insulin infusion at 1.5 units/hr, can transition off when BSGs in goal range x 2 and rate < 2 units/hr as lantus dose has been given, BMP ordered 12/01 * 80 yo F admitted overnight secondary to a mechanical fall resulting in a left hip fracture. She is currently NPO and scheduled to have surgery today. Pharmacy has been consulted to assist with inpatient glycemic management. * Patient has T1DM and uses an insulin pump with setting noted above. She does not have a CGM and does fingersticks to monitor her BSGs at home. Plan is to continue insulin pump while inpatient. However, patient does not bolus herself with her pump. * Therefore, Novolog has been ordered with the same correction factor as she uses at home per outpatient endocrinology notes. The carb ratio was slightly loosened given patient's diet will likely be different than at home. * Patient was taken to the OR this afternoon. She remained on her insulin pump throughout the procedure. Postoperative BSG was 88 mg/dL in PACU. Patient was given juice to help with this. No steroids were administered perioperatively. PLAN FOR INPATIENT GLYCEMIC CONTROL: * Basal insulin - 16 unit x 1 with insulin drip / insulin drip turned off at lunch * Bolus insulin * Correction factor: 40 / Carb ratio 1:10 PLAN FOR DISCHARGE: * TBD
[2020-12-03 16:17] LABS: Creatinine Clr Calc Pharmacy 22.5 ml/min; Est GFR (African American) 33.9 ml/min; Est GFR (Non-African American) 29.2 ml/min; Potassium 4.7 mmol/L (3.5-5.1)
--- NOTE | 2020-12-03 18:13 | Hospitalist Progress Note ---
Date of Service December 03, 2020 Assessment & Plan (1) Hip fracture, left: Plan: 80 yo F with extensive medical hx significant for IDDM1, breast cancer undergoing treatment, hx DVT, admitted for left hip fracture management. 1. L Hip Fx - Primary management by [facility] [place] orthopedics - rani ruano PT/INR, APTT - SCDs for DVT ppx - Pain management: 0.25 mg IV Dilaudid for pain 1-5, 0.5 mg IV Dilaudid for pain 6+ - pressure ulcer precautions - working with PT/OT 2. IDDM1 - pharmacy glycemic management - patient has insulin pump, but is not as compliant with keeping sugars in range. - insulin pump failure --> gave patient 13 units basal insulin --> sugar kept rising to 500s, potassium 6.1 --> patient placed on IV insulin 1.5units/hr --> glycemic control was achieved over night and the potassium dropped to WNL, insulin drip stopped, SQ insulin given - Normal saline w/ potassium drip started rate 125 since potassium was dropping and Cr was 1.6 --> rate changed to 200 since Cr did not lower hours later - BMP scheduled for 21:00 3. Breast Cancer undergoing treatment - has completed chemotherapy, currently undergoing targeted treatments - treatments [id number] 4. Hypothyroidism - cont levothyroxine 5. 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 Choledocholithiasis - chronic, monitor LFTs and symptoms DVT ppx: SCDs FEN/GI: carb healthy, DM1, famotidine IV BID Bowel Regimen: Miralax, docusate, senna Code Status: DNR/DNI (2) Breast cancer: (3) Uncontrolled type 1 diabetes mellitus: (4) Secondary hyperparathyroidism: (5) Diabetic peripheral neuropathy: (6) Anemia: (7) Gastritis: (8) Choledocholithiasis: (9) Deep vein thrombosis (DVT) of right lower extremity: (10) Pulmonary nodules: (11) IPMN (intraductal papillary mucinous neoplasm): Admission and Anticipated Discharge Date Admission Date: November 30, 2020 Supervising Physician Co-Signing Physician Notes I personally examined the patient and verified all jackson points of history and exam, discussed case, and agree with decision making with Dr Vick. feeling better. no new complaints. was surprised how quickly sugars escalated when pump was malfunctional Vitals noted, in general she is awake and alert pleasant no distress. HEENT normocephalic atraumatic mucous membranes moist. breathing unlabored no accessory muscle use good effort. Skin shows no rashes no pallor or icterus. Neuro without focal deficits. Hip fracturehave to assume probably osteoporoticnow s/p repair. Outpatient bone health work-up and management. PT/OT eval and treat. for rehab once below taken care of. DM1 w insulin pump failure and subsequent hyperglycemic dehydration -insulin, fluids, improving. will give trial to pump - hopefully was just site failure or tubing getting clogged - but will want to see how she does on the pump prior to dc to rehab Otherwise as above. Subjective Patient has no complaints. Says she feels better in general but was never really symptomatic. Review of Systems Constitutional: no fever, no chills, no sweats and no fatigue Eyes: no blind spots and no discharge Ear, Nose, Mouth, Throat: no hearing loss and no nasal congestion Respiratory: no cough and no dyspnea Cardiovascular: no chest pain, no dyspnea on exertion and no edema Gastrointestinal: no abdominal pain, no nausea, no vomiting, no constipation, no diarrhea/loose stools and no blood in stools Genitourinary: no dysuria Musculoskeletal: + joint pain; no radicular pain and no myalgia Neurologic: no tingling, no numbness and no headache(s) Endocrine: no fatigue Physical Exam Physical Exam: Constitutional: thin, in no apparent distress, laying comfortably in bed. Eyes: EOMI, pupils equal and reactive bilaterally, no scleral icterus Cardiac: tachycardic, regular rhythm, no murmurs, gallops or rubs. Normal S1, S2 Pulm: CTA BL, no wheezes, rhonchi, crackles or rubs, moving air well throughout both lungs Abd: soft, nontender, nondistended, normal bowel sounds, no rebound or guarding Extremities: 2+ peripheral pulses, mild nonpitting edema bilaterally at the ankles Neuro: no focal deficits, limited movement of left leg due to surgery. Results & Data Results & Data ([facility]) Vital Signs (Past 12 Hours) Vital Signs Temp Pulse Pulse Resp BP Pulse Ox 12/03/20 15:28 96 H 08/18/21 15:00 36.9 C 90 18 122/60 94 12/03/20 11:00 36.7 C 93 H 18 144/75 H 93 12/03/20 07:22 85 12/03/20 07:00 36.7 C 82 16 108/61 91 Resident Activity Tracking Resident Involvement: Resident Care Provided Care Provided: Adult [facility] Medicine
--- NOTE | 2020-12-03 18:57 | Billing Data ---
Date of Service December 03, 2020 Coding Level of Care Code 86620 Subseq Hosp Care Lvl 3
[2020-12-03 21:38] LABS: BUN Creatinine Ratio 22.6 (10-20); Calcium 7.8 mg/dl (8.5-10.1); Creatinine Clr Calc Pharmacy 23.1 ml/min; Est GFR (African American) 34.9 ml/min; Est GFR (Non-African American) 30.1 ml/min; Potassium 4.8 mmol/L (3.5-5.1)
[2020-12-04] MEDS ORDERED: INSULIN ASPART 100 UNITS/ML 3 ML PEN SC SCH
[2020-12-04] MEDS: NSS + 20MEQ KCL 20 MEQ/1,000 ML BAG IV SCH ×3 (00:42→10:52)
[2020-12-04] MEDS: cefTRIAXone SODIUM 1,000 MG in DEXTROSE 5% 50 ML IV SCH (02:21)
[2020-12-04] MEDS: LEVOTHYROXINE SODIUM 100 MCG TABLET PO SCH (05:48)
[2020-12-04] MEDS: PANTOprazole 40 MG TAB PO SCH (07:57)
[2020-12-04] MEDS: RIVAROXABAN 20 MG TAB PO SCH (07:57)
[2020-12-04] MEDS: HYDROmorphone INJ 0.5 MG/0.5 ML SYR IV PRN (07:58)
[2020-12-04] MEDS: INSULIN ASPART 100 UNITS/ML 3 ML PEN SC SCH ×2 (08:50→12:17)
[2020-12-04 08:51] LABS: BUN Creatinine Ratio 23.8 (10-20); Est GFR (African American) 49.9 ml/min; Est GFR (Non-African American) 43.1 ml/min; Potassium 4.9 mmol/L (3.5-5.1)
[2020-12-04] MEDS ORDERED: INSULIN GLARGINE SOLOSTAR 100 UNITS/ML 3 ML PEN SC SCH (09:00)
[2020-12-04] MEDS: HEPARIN 100 UNIT/ML 5ML FLUSH FLUSH PRN (10:33)
--- NOTE | 2020-12-04 14:45 | Pharmacy Report ---
Pharmacy Glycemic Short Note 2 - Date of Service December 04, 2020 - Glycemic Short BSG Results (Last 24 hours): 12/03/20 12/03/20 12/03/20 14:50 15:49 16:31 Glucose Cancelled 175 H POC Glucose 197 H 12/03/20 12/03/20 12/04/20 20:20 20:52 00:52 Glucose 215 H POC Glucose 233 H 165 H 12/04/20 12/04/20 12/04/20 07:44 07:45 11:44 Glucose 196 H POC Glucose 198 H 238 H OUTPATIENT ANTIDIABETIC REGIMEN: * Medtronic insulin pump with the following settings: * Goal Range: 120-140 mg/dL (per pump, but outpatient endocrinology notes say goal range should be 140-150 mg/dL) * Basal: 2166-5679 = 0.45 units/hr + 0047-8539 = 0.625 units/hr + 5613-4332 = 0.5 units/hr (12.3 units/day) * Sensitivity Factor: 60 * Carb Ratio: 12 * HbA1c = 11.9% (12/01/20) ASSESSMENT: 12/04 * Patient transitioned off insulin drip yesterday * Fasting BSG 198 mg/dL - continued with same basal 16 units * Provider wanting to discharge patient soon - went in to see patient and she had already been told to attach insulin pump. She set temp basal to 0% until 0600 tomorrow morning since she got Lantus this AM * Told RN to monitor closely, added overnight checks to ensure stable 12/03 * Patient continues on insulin drip from overnight - running at 1.6 units/hr this AM. Drip rates overnight not stable, up to 5 units/hr at one point. Unclear if labile BSGs related to infection. * Had been given 13 units (home basal insulin) prior to starting insulin infusion yesterday and BSGs were trending upward. * Increased to 16 units x 1 this AM to help with drip transition as anion gap now closed. This is about ~25% increase in home basal dosing * Insulin drip held at lunch time as BSGs stable 12/02 * Blood sugar significantly elevated this morning, was still elevated at lunch, removed insulin pump and gave lantus dose which was given @1430 * BSGs continue to trend up, started insulin infusion at 1.5 units/hr, can transition off when BSGs in goal range x 2 and rate < 2 units/hr as lantus dose has been given, BMP ordered 12/01 * 80 yo F admitted overnight secondary to a mechanical fall resulting in a left hip fracture. She is currently NPO and scheduled to have surgery today. Pharmacy has been consulted to assist with inpatient glycemic management. * Patient has T1DM and uses an insulin pump with setting noted above. She does not have a CGM and does fingersticks to monitor her BSGs at home. Plan is to continue insulin pump while inpatient. However, patient does not bolus herself with her pump. * Therefore, Novolog has been ordered with the same correction factor as she uses at home per outpatient endocrinology notes. The carb ratio was slightly loosened given patient's diet will likely be different than at home. * Patient was taken to the OR this afternoon. She remained on her insulin pump throughout the procedure. Postoperative BSG was 88 mg/dL in PACU. Patient was given juice to help with this. No steroids were administered perioperatively. PLAN FOR INPATIENT GLYCEMIC CONTROL: * Basal insulin - 16 unit daily - restarted insulin pump this afternoon / basal on hold until tomorrow AM * Bolus insulin * via pump PLAN FOR DISCHARGE: * TBD
--- NOTE | 2020-12-04 17:33 | Hospitalist Progress Note ---
Date of Service December 04, 2020 Assessment & Plan (1) Hip fracture, left: Plan: 80 yo F with extensive medical hx significant for IDDM1, breast cancer undergoing treatment, hx DVT, admitted for left hip fracture management. 1. L Hip Fx - Primary management by [facility] orthopedics - rani ruano PT/INR, APTT - SCDs for DVT ppx - Pain management: 0.25 mg IV Dilaudid for pain 1-5, 0.5 mg IV Dilaudid for pain 6+ - pressure ulcer precautions - working with PT/OT - left thigh swelling most likely secondary to IV fluids given during DKA and third spacing from fracture 2. IDDM1 - pharmacy glycemic management - patient has insulin pump, but is not as compliant with keeping sugars in range. - insulin pump failure --> gave patient 13 units basal insulin --> sugar kept rising to 500s, potassium 6.1 --> patient placed on IV insulin 1.5units/hr --> glycemic control was achieved over night and the potassium dropped to WNL, insulin drip stopped, SQ insulin given - Normal saline w/ potassium drip started rate 125 since potassium was dropping and Cr was 1.6 --> rate changed to 200 since Cr did not lower hours later --> Cr and potassium WNL, stopped fluids - insulin pump working again; son brought in new equipment --> plan is to go home on original home insulin regimen 3. Breast Cancer undergoing treatment - has completed chemotherapy, currently undergoing targeted treatments - treatments [id number] 4. Hypothyroidism - cont levothyroxine 5. 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 Choledocholithiasis - chronic, monitor LFTs and symptoms DVT ppx: SCDs FEN/GI: carb healthy, DM1, famotidine IV BID Bowel Regimen: Miralax, docusate, senna Code Status: DNR/DNI (2) Breast cancer: (3) Uncontrolled type 1 diabetes mellitus: (4) Secondary hyperparathyroidism: (5) Diabetic peripheral neuropathy: (6) Anemia: (7) Gastritis: (8) Choledocholithiasis: (9) Deep vein thrombosis (DVT) of right lower extremity: (10) Pulmonary nodules: (11) IPMN (intraductal papillary mucinous neoplasm): Admission and Anticipated Discharge Date Admission Date: November 30, 2020 Supervising Physician Co-Signing Physician Notes I personally examined the patient and verified all jackson points of history and exam, discussed case, and agree with decision making with Dr Vick. Overall feeling good. Hopeful to get to rehab today. No new complaints other than a bit of left leg swelling, she thinks is probably just related to the fracture and the surgery. Vitals noted, in general she is awake and alert pleasant no distress. HEENT normocephalic atraumatic mucous membranes moist. breathing unlabored no accessory muscle use good effort. Skin shows no rashes no pallor or icterus. Neuro without focal deficits. Left lower extremity with a mild degree of edema, no erythema nontender no cords. She does have scattered spider veins that appear chronic. This is all the leg, below the knee she has no calf tenderness no erythema no edema no cords. Hip fracturehave to assume probably osteoporoticnow s/p repair. Outpatient bone health work-up and management. PT/OT eval and treat. Stable for rehab once approved/bed available. DM1 w insulin pump failure and subsequent hyperglycemic dehydration -now almost back to baseline. We did discuss trying to take better care of herself with baseline control (she notes that there are plenty of time she simply forgets to bolus a meal)start pump, follow sugars, for now would discharge on her current regimen just with her trying to do a better job of remembering to bolus meals, and then titrate insulins further from there if needed. Otherwise as above. Subjective Patient is in good spirits. Only complaint today is increased left thigh swelling and tenderness on same leg as fracture/repair. Denies fever, SOB, LE pain bilaterally. Review of Systems Review of Systems: All systems reviewed & are unremarkable except as noted in HPI & below Respiratory: no cough and no dyspnea Cardiovascular: no chest pain Musculoskeletal: + joint pain (left hip) Neurologic: no tingling, no numbness and no headache(s) Endocrine: no fatigue Physical Exam Physical Exam: Constitutional: thin, in no apparent distress, laying comfortably in bed. Eyes: EOMI, pupils equal and reactive bilaterally, no scleral icterus Cardiac: tachycardic, regular rhythm, no murmurs, gallops or rubs. Normal S1, S2 Pulm: CTA BL, no wheezes, rhonchi, crackles or rubs, moving air well throughout both lungs Abd: soft, nontender, nondistended, normal bowel sounds, no rebound or guarding Extremities: 2+ peripheral pulses, mild nonpitting edema bilaterally at the ankles. Left thigh: no bruising, no erythema, not warm to touch, TTP. Lower legs: NONtender to palpation, no swelling, normal. Skin: bandage over repair site left hip Neuro: no focal deficits, limited movement of left leg due to surgery. Results & Data Results & Data ([facility]) Vital Signs (Past 12 Hours) Vital Signs Temp Pulse Pulse Resp BP Pulse Ox 12/04/20 15:23 93 H 12/04/20 15:00 37.2 C 97 H 18 131/79 92 12/04/20 11:00 36.6 C 93 H 18 144/83 H 98 12/04/20 07:24 96 H 12/04/20 07:00 36.8 C 96 H 18 149/77 H 90 Resident Activity Tracking Resident Involvement: Resident Care Provided Care Provided: Adult [facility]
--- NOTE | 2020-12-04 17:39 | Billing Data ---
Date of Service December 04, 2020 Coding Level of Care Code 31918 Subseq Hosp Care Lvl 3
[2020-12-04] MEDS: NovoLOG INSULIN PUMP SCH ×2 (18:01→21:22)
[2020-12-04] MEDS: DOCUSATE SODIUM/SENNA 50/8.6MG TAB PO SCH (20:37)
[2020-12-05] MEDS: NovoLOG INSULIN PUMP SCH ×4 (00:30→12:43)
[2020-12-05] MEDS: cefTRIAXone SODIUM 1,000 MG in DEXTROSE 5% 50 ML IV SCH (01:17)
[2020-12-05] MEDS: HEPARIN 100 UNIT/ML 5ML FLUSH FLUSH PRN ×2 (02:17→09:59)
[2020-12-05] MEDS: LEVOTHYROXINE SODIUM 100 MCG TABLET PO SCH (05:45)
[2020-12-05 06:22] LABS: BUN Creatinine Ratio 24.4 (10-20); Creatinine Clr Calc Pharmacy 42.9 ml/min; Est GFR (African American) 66.4 ml/min; Est GFR (Non-African American) 57.3 ml/min; Potassium 4.4 mmol/L (3.5-5.1)
[2020-12-05] MEDS: PANTOprazole 40 MG TAB PO SCH (08:46)
[2020-12-05] MEDS: RIVAROXABAN 20 MG TAB PO SCH (08:47)
--- NOTE | 2020-12-05 09:16 | Pharmacy Report ---
Pharmacy Glycemic Short Note 2 - Date of Service December 05, 2020 - Glycemic Short BSG Results (Last 24 hours): 12/04/20 12/04/20 12/04/20 11:44 15:01 16:49 Glucose POC Glucose 238 H 147 H 92 12/04/20 12/04/20 12/05/20 20:26 20:28 00:00 Glucose POC Glucose 69 L* 74 79 12/05/20 12/05/20 12/05/20 02:00 04:00 05:36 Glucose 96 POC Glucose 91 92 12/05/20 07:25 Glucose POC Glucose 131 H OUTPATIENT ANTIDIABETIC REGIMEN: * Medtronic insulin pump with the following settings: * Goal Range: 120-140 mg/dL (per pump, but outpatient endocrinology notes say goal range should be 140-150 mg/dL) * Basal: 1544-5730 = 0.45 units/hr + 2348-3766 = 0.625 units/hr + 7960-5077 = 0.5 units/hr (12.3 units/day) * Sensitivity Factor: 60 * Carb Ratio: 12 * HbA1c = 11.9% (12/01/20) ASSESSMENT: 12/05 * Patient continues on insulin pump today, BSGs remain stable * Basal resumed this AM (since Lantus given yesterday AM) * Patient to manage with insulin pump moving forward 12/04 * Patient transitioned off insulin drip yesterday * Fasting BSG 198 mg/dL - continued with same basal 16 units * Provider wanting to discharge patient soon - went in to see patient and she had already been told to attach insulin pump. She set temp basal to 0% until 0600 tomorrow morning since she got Lantus this AM * Told RN to monitor closely, added overnight checks to ensure stable 12/03 * Patient continues on insulin drip from overnight - running at 1.6 units/hr this AM. Drip rates overnight not stable, up to 5 units/hr at one point. Unclear if labile BSGs related to infection. * Had been given 13 units (home basal insulin) prior to starting insulin infusion yesterday and BSGs were trending upward. * Increased to 16 units x 1 this AM to help with drip transition as anion gap now closed. This is about ~25% increase in home basal dosing * Insulin drip held at lunch time as BSGs stable 12/02 * Blood sugar significantly elevated this morning, was still elevated at lunch, removed insulin pump and gave lantus dose which was given @1430 * BSGs continue to trend up, started insulin infusion at 1.5 units/hr, can trans ition off when BSGs in goal range x 2 and rate < 2 units/hr as lantus dose has been given, BMP ordered 12/01 * 80 yo F admitted overnight secondary to a mechanical fall resulting in a left hip fracture. She is currently NPO and scheduled to have surgery today. Pharmacy has been consulted to assist with inpatient glycemic management. * Patient has T1DM and uses an insulin pump with setting noted above. She does not have a CGM and does fingersticks to monitor her BSGs at home. Plan is to continue insulin pump while inpatient. However, patient does not bolus herself with her pump. * Therefore, Novolog has been ordered with the same correction factor as she uses at home per outpatient endocrinology notes. The carb ratio was slightly loosened given patient's diet will likely be different than at home. * Patient was taken to the OR this afternoon. She remained on her insulin pump throughout the procedure. Postoperative BSG was 88 mg/dL in PACU. Patient was given juice to help with this. No steroids were administered perioperatively. PLAN FOR INPATIENT GLYCEMIC CONTROL: * Insulin pump - continue pump PLAN FOR DISCHARGE: * A1c ~11.9 - goal <8% reasonable * Patient met with DM educator. Patient reports missing bolus doses for meal/snacks with insulin pump. Plan to reinforce strategies to help with re membering to bolus. DM educator will notify Endo office that close follow up is needed at time of discharge per notes * Plan to continue with insulin pump on discharge. Have patient notify provider if BSGs consistently above goal range
[2020-12-05] MEDS: HYDROmorphone INJ 0.5 MG/0.5 ML SYR IV PRN (09:55)
[2020-12-05 11:38] VITALS: BP 125/70; PULSE 98; TEMP 99; O2SAT 96
--- NOTE | 2020-12-05 14:54 | Discharge Summary ---
Date of Service December 05, 2020 Admission HPI Per Admitting Provider 80 yo F hx DM1 on insulin pump, frequent UTIs, breast cancer undergoing targeted treatments, hx DVT, gastritis, secondary hyperparathyroidism, thyroid nodule brought to the ER by ambulance for fall off picnic table and left sided hip pain. States she was sitting on the edge of the bench, tried to stand up and fell to her left side. She denies any lightheadedness, dizziness prior to the fall. She has a hx of neuropathy to the knees bilaterally secondary to chemotherapy, and denies any new numbness or tingling. Pain is located over her left hip, was initially in the groin and moved to her left buttock and over the lateral side of the leg. No radiation of the pain elsewhere. She is on xarelto daily for hx DVT, last took it the morning of 11/30. Principal Diagnosis Hip fracture w/ repair Discharge Exam Constitutional: thin, in no apparent distress, laying comfortably in bed. Eyes: EOMI, pupils equal and reactive bilaterally, no scleral icterus Cardiac: tachycardic, regular rhythm, no murmurs, gallops or rubs. Normal S1, S2 Pulm: CTA BL, no wheezes, rhonchi, crackles or rubs, moving air well throughout both lungs Abd: soft, nontender, nondistended, normal bowel sounds, no rebound or guarding Extremities: 2+ peripheral pulses, mild nonpitting edema bilaterally at the ankles. Left thigh: no bruising, no erythema, not warm to touch, TTP. Lower legs: mildly tender to palpation along shins bilaterally, no swelling, normal. Skin: bandage over repair site left hip Neuro: no focal deficits, limited movement of left leg due to surgery. Discharge Data Allergies Allergy/AdvReac Type Severity Reaction Status Date / Time lisinopril AdvReac Intermediate ELEVATES Verified 11/30/20 16:59 POTASSIUM LEVELS losartan AdvReac Intermediate ELEVATES Verified 11/30/20 16:59 POTASSIUM LEVELS. Procedures Performed Operation Date: 12/01/20 08:20 Actual Procedures p Left Hip Cannulated Screws(Left) - Noe Craft, DO Ordered Studies 11/30/20 19:49 CT cervical spine wo con Stat CT head/brain wo con Stat 12/01/20 FL hip LT 2-3V Routine Diabetes Follow up Diabetes Follow-up Needed for HgbA1c >9% Hospital Course (1) Hip fracture, left: 80 yo F with extensive medical hx significant for IDDM1, breast cancer undergoing treatment, hx DVT, admitted for left hip fracture management. 1. L Hip Fx - [place] [facility] [place] - cont. xarelto - Pain management: 0.25 mg IV Dilaudid for pain 1-5, 0.5 mg IV Dilaudid for pain 6+ - pressure ulcer precautions were in place - working with PT/OT; --> going to continue at acute rehab facility - left thigh swelling most likely secondary to IV fluids given during DKA and third spacing from fracture; less concerning for compartment syndrome or infection 2. IDDM1 - pharmacy glycemic management - patient has insulin pump, but is not as compliant with keeping sugars in range. - insulin pump failure --> gave patient 13 units basal insulin --> sugar kept rising to 500s, potassium 6.1 --> patient placed on IV insulin 1.5units/hr --> glycemic control was achieved over night and the potassium dropped to WNL, insulin drip stopped, SQ insulin given - Normal saline w/ potassium drip started rate 125 since potassium was dropping and Cr was 1.6 --> rate changed to 200 since Cr did not lower hours later --> Cr and potassium WNL, stopped fluids - insulin pump working again; son brought in new equipment --> plan is to go home on original home insulin regimen - Insulin pump appears to be working well as glucose levels have been in check when patient uses the pump as needed. Her Cr and potassium remain WNL, kidneys appear to be working well, DKA resolved. 3. Breast Cancer undergoing treatment - has completed chemotherapy, currently undergoing targeted treatments - treatments [id number]; f/u for next treatment 4. Hypothyroidism - cont levothyroxine 5. 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 6. Choledocholithiasis - chronic (2) Breast cancer: (3) Uncontrolled type 1 diabetes mellitus: (4) Secondary hyperparathyroidism: (5) Diabetic peripheral neuropathy: (6) Anemia: (7) Gastritis: (8) Choledocholithiasis: (9) Deep vein thrombosis (DVT) of right lower extremity: (10) Pulmonary nodules: (11) IPMN (intraductal papillary mucinous neoplasm): Total Time Total Time Spent Total Time Spent (In Minutes): <30 Discharge Plan Discharge Items Patient Disposition: Transfer Inpatient Rehab Fac Reason For Visit: HIP FRACTURE Discharge Diagnosis: Hip Fracture w/ repair Activity: Per Instructions section Non-emergency contact: Primary Care Provider and Surgeon Call non-emergency contact if: you have any medication questions, your symptoms worsen, your pain is not controlled and your pain is worsening Follow-up/Referrals: Salvador Kimble III, MD [Primary Care Provider] - Noe Craft DO [Physician] - Diet: Carb Count or DM1 Addtl Attending Provider Instructions: Mr. Franco, you admitted to the hospital for a hip fracture that was repaired. Your recovery was going as expected until your blood glucose levels nallely very high putting you into a condition called DKA. This was due to failure of your insulin pump. We were able to bring your glucose levels back down to normal with insulin and fluids. Today your glucose levels are back in check. Your son brought you and new equipment for your insulin pump which now appears to be working properly. Going forward, I urge you to use your insulin pump regularly as needed in order to prevent inappropriate elevations in your blood glucose levels which can be life-threatening if not managed appropriately. As for your hip, acute rehab will enable you to recover successfully from this hip fracture status post surgery by providing hours of PT daily and 24-hour care. The swelling and tenderness in your left leg should go away over time. We believe the swelling is due to third spacing secondary to your original f racture and the fluids we gave you while you were in DKA. Otherwise your kidney function looks great and there appears to be no signs of infection. If you ever feel significant pain, tightness, redness, bruising, or excessive warmth in that left thigh please notify a medical provider immediately. Also be aware of tightness and pain in your lower legs as this could be seen of a possible DVT which warrants medical attention. Addtl Surgical Pathologist Provider Instructions: ORTHOPEDIC INSTRUCTIONS Hip Fracture Activity and Therapy Recommendations: 1. You were shown a series of exercises in the hospital. Do these exercises three times each day if you are able. 2. Get up and walk several times each day if you are capable. Make sure you have assistance is needed. For the first four weeks, try not to stand or walk for more than one hour at a time. If you do stand or walk for more than one hour, you will not hurt anything, but your leg will likely swell. 3. As you feel comfortable, you may change from the walker or crutches to a cane and then to independent walking if you are able. Please be safe. Medications: 1. Narcotic You will likely be sent from the hospital with the narcotic pain medication that worked best throughout your stay. 2. Xarelto -continue your Xarelto as prescribed 3. Other medications may be given for specific circumstances. If you have any questions, please call the office at [phone]. 4. Resume previous home medications unless otherwise instructed TEDs/Elastic Stockings: The white elastic stockings help limit swelling and prevent blood clots from forming in your legs. The more you wear them, the more they work. Wear them for six weeks. Dressing Care: Randal can be open to air as long as the incisions are not draining. If the incisions are draining or if the randal are getting caught on your clothes then please cover the randal with dry gauze. Change the dressings as necessary to keep the incision as dry as possible Showering: You may shower 5 days from the day of surgery as long as the incisions are not draining. Do not soak the incision. Let soapy water run over the randal and pat them dry. Things To Watch For: 1. Drainage from the incision site that occurs more than one week after your surgery. 2. Increased redness at the incision site. 3. Fever above 102 degrees Fahrenheit. 4. Unusual chest pain or shortness of breath. 5. Call [facility] at with any of the above problems Follow-Up Visit: Follow-up with Dr. Craft's PA (Noe Batres) 2-3 weeks after your day of surgery. He will remove your randal and answer any questions. If you have any additional questions or concerns, Dr Craft is usually in the office at the same time and will be available An appointment was probably scheduled when you signed-up for surgery in the office. If you have any questions call Pending Studies at Discharge: No Stand-Alone Forms: My [facility] Skilled Items Patient informed of condition?: Yes DNR: Yes Discharge Level of Care: Acute rehab Communicable Disease: No Discharge Prognosis: Improving Lines: None Urinary Catheter: No Medications and DC Order Prescriptions: Continued insulin aspart U-100 [Novolog U-100 Insulin aspart] 100 unit/mL solution 45 unit continuous subcutaneous infusion DAILY 90 Days Qty: 40 RF: 3 Lantus U-100 Insulin 100 unit/mL solution 14 unit subcut QPM Qty: 10 RF: 0 omeprazole 20 mg tablet,delayed release (DR/EC) 20 mg PO DAILY RF: 0 cholecalciferol (vitamin D3) 125 mcg (5,000 unit) capsule 125 mcg PO QAM RF: 0 calcium carbonate-vitamin D3 600 mg(1,500mg) -800 unit tablet 1 tab PO DAILY RF: 0 Lacto.acidophilus-Bif.animalis 31 billion cell capsule 1 cap PO DAILY RF: 0 (DME) Dexcom G6 Sensor Device See Rx Instructions .ROUTE .MEDSUPPLY Qty: 3 RF: 0 (DME) Dexcom G6 Transmitter Device See Rx Instructions .ROUTE .MEDSUPPLY Qty: 1 RF: 0 (DME) MiniMed 530G Insulin Pump Misc See Rx Instructions .ROUTE .MEDSUPPLY Qty: 1 RF: 0 (DME) Contour Next Test Strips Strip See Rx Instructions .ROUTE .MEDSUPPLY Qty: 100 RF: 3 levothyroxine 100 mcg tablet 100 mcg PO QAM Qty: 90 RF: 3 furosemide [Lasix] 20 mg tablet 20 mg PO 3XWK Qty: 90 RF: 3 Xarelto 20 mg tablet 20 mg PO QAM Qty: 90 RF: 3 Discharge Orders: Discharge Order (Routine); Ordered 12/05/20 Ordered By: Vasquez Vick Admission Data Admit Date/Time: 11/30/20 20:51 Attending Provider: Ignacio Dos Santos Admit Provider: Laura Vick Primary Care Provider: Salvador Kimble III Other Providers: [facility] ; Fco Martino [facility] Other Interventions: Discharge Summary Assessment (RN) Last Done: 12/05/20 15:07 Supervising Physician Co-Signing Physician Notes I personally examined the patient and verified all jackson points of history and exam, discussed case, and agree with decision making with Dr Vick. no new complaints, for rehab - appealed peer to peer Vitals noted, in general she is awake and alert pleasant no distress. HEENT normocephalic atraumatic mucous membranes moist. breathing unlabored no accessory muscle use good effort. Skin shows no rashes no pallor or icterus. Neuro without focal deficits. Left lower extremity with a mild degree of edema, no erythema nontender no cords. She does have scattered spider veins that appear chronic. This is all the leg, below the knee she has no calf tenderness no erythema no edema no cords. Hip fracturehave to assume probably osteoporoticnow s/p repair. Outpatient bone health work-up and management. PT/OT eval and treat. for rehab DM1 w insulin pump failure and subsequent hyperglycemic dehydration -now almost back to baseline. We again discussed trying to take better care of herself with baseline control (she notes that there are plenty of time she simply forgets to bolus a meal)start pump, follow sugars, for now would discharge on her current regimen just with her trying to do a better job of remembering to bolus meals, and then titrate insulins further from there if needed. Otherwise as above. Resident Activity Tracking Resident Involvement: Resident Care Provided Care Provided: Adult Hospital Medicine
--- NOTE | 2020-12-05 17:04 | Billing Data ---
Date of Service December 05, 2020 Coding Level of Care Code D/C DAY MANAGEMENT <30 MINS
== END 2020-12-05 15:45 | DRG 481 ==
LOC: ED 16:24 → 3W 20:51 → SUATTDRO 20:51 → 3W 23:35 → 2N 12-02 21:01
DX: E10.10 Type 1 diabetes mellitus with ketoacidosis without coma; Z96.41 Presence of insulin pump (external) (internal); E03.9 Hypothyroidism, unspecified; Z90.49 Acquired absence of other specified parts of digestive tract; I10 Essential (primary) hypertension; Z66 Do not resuscitate; B96.20 Unspecified Escherichia coli [E. coli] as the cause of diseases classified elsewhere; K80.50 Calculus of bile duct without cholangitis or cholecystitis without obstruction; E78.5 Hyperlipidemia, unspecified; Z79.4 Long term (current) use of insulin; N39.0 Urinary tract infection, site not specified; Z86.718 Personal history of other venous thrombosis and embolism; S72.002A Fracture of unspecified part of neck of left femur, initial encounter for closed fracture; C50.919 Malignant neoplasm of unspecified site of unspecified female breast; X58.XXXA Exposure to other specified factors, initial encounter

== ENCOUNTER 2021-01-09 08:07 | Observation (INO) ==
--- NOTE | 2021-01-08 08:46 | Anesthesiology Consultation ---
Date of Service January 08, 2021 Assessment & Plan (1) Encounter for pre-operative examination: Chart Review Chart Review: Acceptable Risk for Surgery and Patient NOT seen in Pre Admission Testing -Check CBC with diff DOS- currently no chemo - Check BSG AM DOS Per nursing assessment 01/08/2021, patient denies any recent travel. No known Covid infection in the past 90 days. Patient is vaccinated for Covid. No known Covid positive contacts or Covid related symptoms. Covid test 01/07/21= negative Seen by PCP 12/24/20= seen for SUNDAR- discharged from [facility] on 12/20/20. Had been admitted to [facility] on 12/05/20- after hip fracture s/p left femur nailing. "Patient doing reasonably well since being home after her left hip fracture. She has a small amount of sanguineous drainage from the surgical site and a clean, dry dressing was applied to it today. She will have her daughter in law change her dressing tomorrow or the next day. I advised no driving until seen by Dr. Craft. I also recommended she start the iron supplements she was prescribed due to postoperative anemia. She is to have a targeted therapy for her previous breast cancer tomorrow. " Last seen by cardio 11/27/20= pt doing well from cardiac standpoint. Clinically not having any worsening heart failure symptoms. Most recent ECHO reviewed from October 2020. LV function remains stable on new chemo. Does have moderate TR with mild pulm HTN but no signs of right sided heart failure. Will need ECHO every three months give risk of Herceptin associated CM. Otherwise she is doing reasonably well. Left hip pinning 12/01/20= Done under [facility] with LMA #4. History Surgery Operation Date: 01/09/21 10:00 Proposed Procedures p Left Hip Irrigation and Debridement - Noe Craft, Height/Weight Height: 5 ft 2 in Weight: 65.771 kg Allergies Allergy/AdvReac Type Severity Reaction Status Date / Time lisinopril AdvReac Intermediate ELEVATES Verified 01/08/21 10:40 POTASSIUM LEVELS losartan AdvReac Intermediate ELEVATES Verified 01/08/21 10:40 POTASSIUM LEVELS. Medications Home Medications Medication Instructions Recorded Confirmed Last Taken calcium carbonate-vitamin D3 600 1 tab PO DAILY tab 06/19/19 01/08/21 11/30/20 mg (1,500 mg)-800 unit tablet Lactobacillus 1 cap PO DAILY cap 09/17/19 01/08/21 11/30/20 acidophilus-Bifidobac.animalis 31 billion cell capsule cholecalciferol (vitamin D3) 125 125 mcg PO QAM 12/25/19 01/08/21 11/30/20 mcg (5,000 unit) capsule Novolog U-100 Insulin aspart 100 45 unit CONTINUOUS SUBCUTANEOUS 02/20/20 01/08/21 11/30/20 unit/mL subcutaneous solution INFUSION DAILY 90 Days #40 ml NS (insulin aspart U-100) omeprazole 20 mg tablet,delayed 20 mg PO DAILY 03/27/20 01/08/21 11/30/20 release furosemide 20 mg tablet (Lasix) 20 mg PO 3XWK #90 tab 04/23/20 01/08/21 11/28/20 levothyroxine 100 mcg tablet 100 mcg PO QAM #90 tab 04/23/20 01/08/21 11/30/20 rivaroxaban 20 mg tablet (Xarelto) 20 mg PO QAM #90 tab 04/23/20 01/08/21 11/30/20 insulin glargine 100 unit/mL 14 unit SUBCUT QPM #10 ml 06/30/20 01/08/21 Unknown subcutaneous solution (Lantus U-100 Insulin) blood sugar diagnostic (Contour #100 ea 09/22/20 12/24/20 Unknown Next Test Strips) blood-glucose sensor (Dexcom G6 #3 ea 09/22/20 12/24/20 Unknown Sensor) blood-glucose transmitter (Dexcom #1 ea 09/22/20 12/24/20 Unknown G6 Transmitter) subcutaneous insulin pump (MiniMed #1 ea 09/22/20 12/24/20 Unknown 530G Insulin Pump) ferrous sulfate 325 mg (65 mg 325 mg PO BID 12/24/20 01/08/21 Unknown iron) tablet,delayed release cephalexin 500 mg capsule 500 mg PO TID 10 Days #30 cap 12/31/20 01/08/21 Unknown Past Medical History Medical History (Updated 01/08/21 @ 11:29 by Summer George PA-C) Anemia Compression fracture of thoracic vertebra HEALED Deep vein thrombosis (DVT) of right lower extremity (09/04/19) nonocclusive deep venous thrombus within right peroneal vein>LAST YEAR WHILE ON CHEMO (REASON FOR XARELTO) Diabetes mellitus type 1 + insulin pump/follows with [facility] endocrine/patient educator HGB A1C 11.9 on 12/01/20 GERD (gastroesophageal reflux disease) diet controlled Shane's thyroiditis History of recent blood transfusion 02/25/2020 Hx of gastric ulcer HX: breast cancer RT>diagnosed 2019--right--sx/chemo Hyperlipidemia Hypertension Hypothyroidism Insulin pump in place 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 Lozada, [facility]d [facility] one year) Multiple pulmonary nodules CT SCANS TO KEEP MONITORING Urinary incontinence Past Family History Family History Sister Pancreatic cancer Breast cancer Father Lung cancer Cancer Brother Diabetes Brother Diabetes Parkinson disease Grandfather (Maternal) Myocardial infarction Denies family history of Ovarian cancer Prostate cancer Colorectal cancer Past Surgical History Surgical History History of anesthesia reaction SISTER>SLOW TO WAKE History of breast biopsy RT History of carpal tunnel release RT/LEFT History of cataract surgery bilateral History of cholecystectomy (12/02/19) History of colonoscopy (03/26/20) History of ERCP (~12/02/19) History of esophagogastroduodenoscopy (EGD) (03/26/20) Dr Lam, [facility], large hiatal hernia, nonbleeding duodenal ulcer (done for iron def anemia) History of hip surgery LEFT S/P FEMUR FRACTURE (SCREWS INTACT) History of tonsillectomy and adenoidectomy History of tooth extraction History of vascular access device APort--left side of chest S/P mastectomy (12/17/19) Right breast, with sentinel lymph node [place] [facility] [place] benign Social History Smoking Status: Never smoker Hx Alcohol Use: No Hx Substance Use: No substance use type: does not use Lab Results Anesthesia Preop Results Results Anesthesia Widget: WBC 4.87 K/uL (4.8-10.8) 12/23/20 Hgb 9.7 g/dL (12.0-16.0) L 12/23/20 Hct 30.8 % (37-47) L 12/23/20 Plt 254 K/uL (130-400) 12/23/20 Na 138 mmol/L (136-145) 12/23/20 K 4.4 mmol/L (3.5-5.1) 12/23/20 Cl 104 mmol/L (98-107) 12/23/20 CO2 29 mmol/L (21-32) 12/23/20 BUN 23 mg/dl (7-18) H 12/23/20 Creat 1.14 mg/dl (0.6-1.2) 12/23/20 Glucose Level 159 mg/dl (70-99) H 12/23/20 PT 12.9 Seconds (9.0-12.0) H 12/01/20 PTT 35.0 Seconds (21.0-31.0) H 12/01/20 INR 1.3 (0.9-1.1) H 12/01/20 HA1c 11.9 % (4.5-5.6) H 12/01/20 Blood Type O Positive 11/30/20 Antibody Screen NEGATIVE 11/30/20 Lab Comments: Anemia noted on labs- pt has chronic anemia but also s/p hip fracture with left hip pinning on 12/01/20- PCP is aware and did start patient on iron supplement 12/24/20 Testing Electrocardiogram Date: 11/30/20 Findings: + ST @ (102 bpm ) Nonspecific ST and T wave abnormality, when compared with ECG of 12/01/19 nonspecific T wave abnormality now evident in lateral leads. Chest X-Ray Date: 11/30/20 Findings: + NAD Moderate hiatus hernia, unchanged. Echocardiogram Date: 10/27/20 EF: >75% RWMA: + none Other Findings: + diastolic dysfunction (Grade 1) Hyperdynamic LV systolic function. Basal asymmetric septal hypertrophy of the elderly. Mildly dilated left atrium Moderate TR. Mild pulmonary hypertension PASP 40 mmHg. Other Testing Chest CT 09/23/20= Multiple subcentimeter pulmonary nodules. Majority unchanged since prior CT. A few right lower lobe pulmonary nodules have slightly decreased in size. These are indeterminate and continued short-term imaging follow-up is recommended. No new pulmonary nodules. Slight decrease in size of a right retroclavicular lymph node. Otherwise, unchanged appearance of the chest, as described above.
--- NOTE | 2021-01-09 06:23 | History & Physical Report ---
Date of Service January 09, 2021 Assessment & Plan (1) S/P ORIF (open reduction internal fixation) fracture: We will proceed with a irrigation and debridement and wound closure of the left hip wound. Postoperatively will likely keep her overnight in the hospital for postoperative antibiotics before discharging her home on some oral antibiotics. History of Present Illness Chief Complaint: Persistent drainage left hip wound. Primary Care Provider: Salvador Kimble MD Colleen is a 80-year-old female who fell off a picnic table 6 weeks ago. She was diagnosed with a left femoral neck fracture and underwent percutaneous screw fixation on December 01, 2020. She is done well functionally postoperatively. Her wound was initially looking okay but then it started to drain more and more. 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 She came to my office this week. With the persistent drainage 6 weeks out, we elected to go back to the operating room and do a formal I&D and closure of the left hip wound.. Allergies Allergy/AdvReac Type Severity Reaction Status Date / Time lisinopril AdvReac Intermediate ELEVATES Verified 01/08/21 10:40 POTASSIUM LEVELS losartan AdvReac Intermediate ELEVATES Verified 01/08/21 10:40 POTASSIUM LEVELS. Home Medications Medication Instructions Recorded Confirmed Type calcium carbonate-vitamin D3 600 1 tab PO DAILY tab 06/19/19 01/08/21 History mg (1,500 mg)-800 unit tablet Lactobacillus 1 cap PO DAILY cap 09/17/19 01/08/21 History acidophilus-Bifidobac.animalis 31 billion cell capsule cholecalciferol (vitamin D3) 125 125 mcg PO QAM 12/25/19 01/08/21 History mcg (5,000 unit) capsule Novolog U-100 Insulin aspart 100 45 unit CONTINUOUS SUBCUTANEOUS 02/20/20 01/08/21 Rx unit/mL subcutaneous solution INFUSION DAILY 90 Days #40 ml NS (insulin aspart U-100) omeprazole 20 mg tablet,delayed 20 mg PO DAILY 03/27/20 01/08/21 History release furosemide 20 mg tablet (Lasix) 20 mg PO 3XWK #90 tab 04/23/20 01/08/21 Rx levothyroxine 100 mcg tablet 100 mcg PO QAM #90 tab 04/23/20 01/08/21 Rx rivaroxaban 20 mg tablet (Xarelto) 20 mg PO QAM #90 tab 04/23/20 01/08/21 Rx insulin glargine 100 unit/mL 14 unit SUBCUT QPM #10 ml 06/30/20 01/08/21 Rx subcutaneous solution (Lantus U-100 Insulin) blood sugar diagnostic (Contour #100 ea 09/22/20 12/24/20 Rx Next Test Strips) blood-glucose sensor (Dexcom G6 #3 ea 09/22/20 12/24/20 History Sensor) blood-glucose transmitter (Dexcom #1 ea 09/22/20 12/24/20 History G6 Transmitter) subcutaneous insulin pump (MiniMed #1 ea 09/22/20 12/24/20 History 530G Insulin Pump) ferrous sulfate 325 mg (65 mg 325 mg PO BID 12/24/20 01/08/21 History iron) tablet,delayed release cephalexin 500 mg capsule 500 mg PO TID 10 Days #30 cap 12/31/20 01/08/21 Rx Past Med/Surg History Medical History Anemia Compression fracture of thoracic vertebra HEALED Deep vein thrombosis (DVT) of right lower extremity (09/04/19) nonocclusive deep venous thrombus within right peroneal vein>LAST YEAR WHILE ON CHEMO (REASON FOR XARELTO) Diabetes mellitus type 1 + insulin pump/follows with [facility] [place]/dance choreographer HGB A1C 11.9 on 12/01/20 GERD (gastroesophageal reflux disease) diet controlled Shane's thyroiditis History of recent blood transfusion 02/25/2020 Hx of gastric ulcer HX: breast cancer RT>diagnosed 2019--right--sx/chemo Hyperlipidemia Hypertension Hypothyroidism Insulin pump in place 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 Lozada, [facility] (MRI abd rec in one year) Multiple pulmonary nodules CT SCANS TO KEEP MONITORING Urinary incontinence Surgical History History of anesthesia reaction SISTER>SLOW TO WAKE History of breast biopsy RT History of carpal tunnel release RT/LEFT History of cataract surgery bilateral History of cholecystectomy (12/02/19) History of colonoscopy (03/26/20) History of ERCP (~12/02/19) History of esophagogastroduodenoscopy (EGD) (03/26/20) Dr Lam, [facility], large hiatal hernia, nonbleeding duodenal ulcer (done for iron def anemia) History of hip surgery LEFT S/P FEMUR FRACTURE (SCREWS INTACT) History of tonsillectomy and adenoidectomy History of tooth extraction History of vascular access device APort--left side of chest S/P mastectomy (12/17/19) Right breast, with sentinel lymph node biopsy, Dr. Preet Burdick, [facility] [place] S/P thyroid biopsy benign Family History Sister Pancreatic cancer Breast cancer Father Lung cancer Cancer Brother Diabetes Brother Diabetes Parkinson disease Grandfather (Maternal) Myocardial infarction Denies family history of Ovarian cancer Prostate cancer Colorectal cancer Social History Smoking Status: Never smoker Second Hand Exposure: No; Hx Alcohol Use: No Preferred Language: Australian Communication Ability: Effective Visual Impairment: No Limitations Hearing Ability: Normal Utility Sales And Service Manager Required: No Beliefs That Will Affect Care: None marital status: / Current Living Situation: Alone current occupational status: retired Feels Safe at Home: Yes Safety Concerns: Feels Safe At This Time caffeine: Yes Dental Care, Regularly: Yes Physical Activity Frequency: Does not Exercise Seatbelt Use: always Sunscreen Use: Yes Assistive Devices: Cane, Glasses and Walker Review of Systems All systems reviewed & are unremarkable except as noted in HPI & below. Physical Exam On physical examination of the left hip wound, there is a 1 cm open draining area at the inferior aspect of the hip wound. It is draining mostly serous fluid.. Constitutional WD/WN, vitals as above Eyes PERRL, conjunctivae normal, anicteric sclerae ENMT external ear and nose normal, oropharynx normal Neck trachea midline, no thyromegaly Respiratory normal respiratory effort Cardiovascular RRR, no murmur, no edema Gastrointestinal (Abdomen) normal bowel sounds, soft, nontender, no hepatosplenomegaly Psychiatric A+Ox3, euthymic affect Results & Data Results & Data Laboratory Results . Diagnostic Findings . PG Care Time/CCT Total # of Minutes Spent Total Time Spent with Patient: Total time spent is greater than 50% in coordination of care (as documented) at patient's floor/unit and/or counseling patient: Coding Level of Care Code None Diagnoses S/P ORIF (open reduction internal fixation) fracture Z98.890; Z87.81
[~2021-01-09 08:07] MED LIST: LR 15ML/HR IV SCH; LR 60ML/HR IV SCH; ceFAZolin 2000MG 2,000 MG/15 ML SYR IV SCH
[2021-01-09 08:37] LABS: Basophils # (auto) 0.01 K/uL (0-0.2); Basophils % (auto) 0.2 %; Eosinophils # (auto) 0.17 K/uL (0-0.5); Eosinophils % (auto) 2.8 %; Hematocrit (blood only) 34.4 % (37-47); Hemoglobin 10.8 g/dL (12.0-16.0); Immature Granulocytes # (auto) 0.01 K/uL (0.00-0.02); Immature Granulocytes % (auto) 0.2 %; Lymphocytes # (auto) 1.71 K/uL (1.2-3.4); Lymphocytes % (auto) 28.6 %; Mean Corpuscular Hemoglobin 28.6 pg (25-34); Mean Platelet Volume 9.8 fL (7.4-10.4); Monocytes # (auto) 0.71 K/uL (0.11-0.59); Monocytes % (auto) 11.9 %; Neutrophils # (auto) 3.36 K/uL (1.4-6.5); Neutrophils % (auto) 56.3 %; Platelet Count 179 K/uL (130-400); RDW Coefficient of Variation 16.8 % (11.5-14.5); RDW Standard Deviation 56.3 fL (36.4-46.3); Red Blood Count 3.78 M/uL (4.2-5.4); White Blood Count 5.97 K/uL (4.8-10.8)
[2021-01-09 08:53] LABS: Mean Corpuscular Hgb Conc 31.4 g/dL (32-36)
[2021-01-09] MEDS ORDERED: ATROPINE SULFATE 0.1 MG/ML 10ML SYR IV PRN (10:20)
[2021-01-09] MEDS ORDERED: ePHEDrine sulfate 50 MG/ML AMP IV PRN (10:20)
[2021-01-09] MEDS ORDERED: HYDROmorphone INJ 1 MG/ML SYRINGE IV PRN (10:20)
[2021-01-09] MEDS ORDERED: fentaNYL citrate 100 MCG/2 ML VIAL IV PRN (10:20)
[2021-01-09] MEDS ORDERED: ONDANSETRON INJ 2 MG/ML 2 ML VIAL IV PRN ×2 (10:20→12:59)
[2021-01-09] MEDS ORDERED: PROPOFOL IV EMULSION 10 MG/ML 20 ML VIAL IV ONE (10:32)
[2021-01-09] MEDS ORDERED: fentaNYL citrate 100 MCG/2 ML VIAL ONE (10:32)
[2021-01-09] MEDS ORDERED: LIDOCAINE 2% 2 ML VIAL/AMP(20MG/ML) INFIL ONE (10:32)
[2021-01-09] MEDS ORDERED: ONDANSETRON INJ 2 MG/ML 2 ML VIAL ONE (11:01)
[2021-01-09] MEDS ORDERED: PHENYLEPHRINE 100MCG/ML 5ML SYR ONE (11:01)
[2021-01-09] MEDS ORDERED: BUPIVACAINE 0.5 % 5 MG/1 ML MPF 30ML VIAL ONE (11:27)
[2021-01-09] MEDS ORDERED: EPINEPHrine INJ 1 MG/ML AMP ONE (11:27)
--- NOTE | 2021-01-09 11:32 | Operative Report ---
PG Post Operative Report Pre & Post Diagnosis Operation Date: 01/09/21 10:00 Pre-Op Diagnosis: Left Hip Drainage status post Left Hip pinning Post-Op Diagnosis: Left Hip Drainage status post Left Hip pinning I identified the patient and participated in the time-out.: Yes Procedure Operation Date: 01/09/21 10:00 Actual Procedures p Left Hip Irrigation and Debridement(Left) - Noe Craft DO Surgeon Noe Craft DO Wind Turbine Engineer Noe Batres PAC Estimated Blood Loss 10 Findings Consistent with Post-Op Diagnosis Specimens Left hip cultures Complications none Disposition Disposition: Recovery Room Indications Female who underwent percutaneous screw fixation of her left hip about 6 weeks ago. She has been on Xarelto 20 mg for a DVT she had while on chemotherapy several years ago. She was still on the Xarelto 20 mg. She is also insulin- dependent diabetic. She had persistent drainage from her left wound. It was getting worse right sided take her to the operating room for irrigation debridement of the left hip wound. Description of Procedure On January 09, [address] [facility] for the above procedure. She was seen in the preoperative holding area and the operative ext remity identified and signed. She was taken back to the operating room and laid on the table in supine position. She was put under general anesthesia. She was put in the lateral decubitus position. The left hip was then prepped and draped in sterile fashion. A timeout was done. The patient and the operative extremity was properly identified. The previous incision was opened back up. There was a moderate amount of bloody and purulent discharge. The area was cultured. Antibiotics were then started. I cannot palpate the heads of the screws. I opened up the area and removed all necrotic appearing tissue. The wound was then irrigated with 3 L of normal saline solution with pulse lavage. A couple of deep #0 PDS sutures were placed to close down the space. 1/4 inch [place] was placed. The skin was closed with 3-0 nylon suture in a mattress fashion. She was then placed in a soft dressing. She was then extubated and transferred to a [facility]. She was taken to the postanesthesia care unit in stable condition. She tolerated the procedure well. Noe Batres PA-C, was present for the entire procedure. He was critical for patient positioning, prepping, draping, retraction exposure, wound closure and application of sterile dressing. I attest to the content of the Intraoperative Record and any orders documented therein. Any exceptions are noted below.
[2021-01-09] MEDS ORDERED: HYDROmorphone INJ 0.5 MG/0.5 ML SYR IV PRN (12:59)
[2021-01-09] MEDS ORDERED: NALOXONE HCL 0.4 MG/1 ML VIAL/CARP IV PRN (12:59)
[2021-01-09] MEDS ORDERED: METOCLOPRAMIDE HCL INJ 5 MG/ML 2 ML VIAL IV PRN (12:59)
[2021-01-09] MEDS ORDERED: SUBCUTANEOUS INSULIN PUMP SCH (12:59)
[2021-01-09] MEDS ORDERED: oxyCODONE HCL IR 5 MG TAB (IMMEDIATE RELEASE) PO PRN (12:59)
[2021-01-09] MEDS ORDERED: PHARMACY GLYCEMIC MGMT CONSULT PRN (12:59)
[2021-01-09] MEDS ORDERED: CARBOHYDRATES FOR HYPOGLYCEMIA PO PRN (13:15)
[2021-01-09] MEDS ORDERED: GLUCOSE 40% GEL 15 GM TUBE PO PRN (13:15)
[2021-01-09] MEDS ORDERED: DEXTROSE 50% 50 ML SYRINGE IV PRN (13:15)
[2021-01-09] MEDS ORDERED: GLUCAGON FOR INJ 1 MG VIAL SQ PRN (13:15)
[2021-01-09] MEDS ORDERED: INSULIN ASPART 100 UNITS/ML VIAL SC PRN (13:15)
[2021-01-09] MEDS ORDERED: GLUCOSE 10 TABS/TUBE PO PRN (13:15)
--- NOTE | 2021-01-09 13:19 | Pharmacy Report ---
Pharmacy Glycemic Short Note 2 - Date of Service January 09, 2021 - Glycemic Short BSG Results (Last 24 hours): 01/09/21 01/09/21 01/09/21 08:41 11:31 13:08 POC Glucose 249 H 256 H 246 H OUTPATIENT ANTIDIABETIC REGIMEN: * Novolog pump SF = 55 and CR = 12 * Basal rates * 00-04: 0.45 units/hr * 04-08 0.625 units/hr * -21: 0.5 units hr ASSESSMENT: * Ms Franco is an 80 y/o F with a PMH of T1DM who presents s/p L hip surgery. * Will continue insulin pump for now to see if BSGs decrease to normal level. PLAN FOR INPATIENT GLYCEMIC CONTROL: * Pt is to manage BSGs with insulin pump per outpatient settings. * RN will have patient read and sign agreement [id number] Insulin Pump Therapy Patient Agreement. * RN will provide and explain form [id number] Flowsheet for Patient * Patient will document their insulin dose given on [id number] which is kept at the bedside, available to caregivers upon request, and which becomes part of the permanent medical record. If at any time the patients condition evidences that he/she is not able to manage the insulin pump (i.e. frequent hypo/hyperglycemia) Pharmacy will assume glycemic control by discontinuing the pump & managing with SQ basal bolus insulin regimen for the interim. PLAN FOR DISCHARGE: * [facility]
[2021-01-09] MEDS: SODIUM CHLORIDE 0.9% 1000ML 1,000 ML IV SCH ×2 (13:49→23:44)
[2021-01-09] MEDS: ACETAMINOPHEN 500 MG TAB PO SCH ×2 (14:29→21:12)
--- NOTE | 2021-01-09 15:08 | Anesthesiology Progress Note ---
Date of Service January 09, 2021 Anesthesia Post Procedure Vital Signs Vital Signs: Temp Pulse Pulse Resp BP Pulse Ox 01/09/21 14:34 86 16 143/84 H 98 01/09/21 13:48 88 18 152/73 H 97 01/09/21 13:04 36.4 C L 91 H 16 131/73 92 01/09/21 12:40 36.5 C 88 18 124/68 97 01/09/21 12:25 87 18 139/63 95 01/09/21 12:15 36.4 C L 91 H 18 141/63 H 95 01/09/21 12:05 90 22 140/70 96 01/09/21 11:55 36.4 C L 91 H 17 132/60 98 01/09/21 11:45 90 16 133/55 L 100 01/09/21 11:35 91 H 17 121/56 L 100 01/09/21 11:27 36.3 C L 92 H 13 133/60 100 01/09/21 08:33 36.4 C L 81 20 137/74 99 Transfer of Care Handoff Completed per policy Notes Mental Status: alert / awake / arousable and participated in evaluation Patient Amnestic to Procedure: Yes Nausea / Vomiting: adequately controlled Pain: adequately controlled Airway Patency, RR, SpO2: stable & adequate BP & HR: stable & adequate Hydration State: stable & adequate Anesthetic Complications: no major complications apparent and Pt Satisfied with anesthetic care
[2021-01-09] MEDS: ceFAZolin 2000MG 2,000 MG/15 ML SYR IV SCH (18:02)
[2021-01-09] MEDS: NovoLOG INSULIN PUMP SCH ×2 (18:03→21:22)
[2021-01-09] MEDS: ASPIRIN 81 MG ECTAB PO SCH (21:12)
[2021-01-09] MEDS: FERROUS SULFATE 325 MG TAB PO SCH (21:12)
[2021-01-10] MEDS: ceFAZolin 2000MG 2,000 MG/15 ML SYR IV SCH (02:08)
[2021-01-10] MEDS: ACETAMINOPHEN 500 MG TAB PO SCH (05:15)
[2021-01-10] MEDS ORDERED: LEVOTHYROXINE SODIUM 100 MCG TABLET PO SCH (06:30)
--- NOTE | 2021-01-10 07:32 | Orthopedic Progress Note ---
Date of Service January 10, 2021 Assessment & Plan (1) S/P ORIF (open reduction internal fixation) fracture: Overall she is doing fairly well. She denies any much pain in the left hip. The Gram stain came back moderate WBCs no organisms. Cultures and sensitivities are not back yet. She has been on 2 doses of Ancef antibiotic. We can discharge her to home today on oral Keflex for 2 weeks. I am also going to discontinue her Xarelto and start on aspirin 81 mg twice a day. I talked to her and her family about the risk and benefits of the Xarelto, and at this point with the draining wound, I feel that she would do better on aspirin until we can get this to close up. She will follow with orthopedics in 2 weeks. Shama Macias was seen and examined at bedside this morning. Overall she doing very well. She was sitting up in a chair. She is not having much pain in her left hip. She has no complaints.. Review of Systems All systems reviewed & are unremarkable except as noted in HPI & below. Physical Exam On physical examination of her left hip, there is some serous drainage on the dressing. She is sitting comfortably.. Results & Data Results & Data Laboratory Results . Diagnostic Findings . PG Care Time/CCT Total # of Minutes Spent Total Time Spent with Patient: Total time spent is greater than 50% in coordination of care (as documented) at patient's floor/unit and/or counseling patient: Coding Level of Care Code 20474 Post Operative Follow-Up Diagnoses S/P ORIF (open reduction internal fixation) fracture Z98.890; Z87.81
--- NOTE | 2021-01-10 07:34 | Discharge Summary ---
Date of Service January 10, 2021 Admission HPI (Per Admitting) Colleen is a 80-year-old female who fell off a picnic table 6 weeks ago. She was diagnosed with a left femoral neck fracture and underwent percutaneous screw fixation on December 01, 2020. She is done well functionally postoperatively. Her wound was initially looking okay but then it started to drain more and more. 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 She came to my office this week. With the persistent drainage 6 weeks out, we elected to go back to the operating room and do a formal I&D and closure of the left hip wound.. Admission Exam (Per Admitting) On physical examination of the left hip wound, there is a 1 cm open draining area at the inferior aspect of the hip wound. It is draining mostly serous fluid.. Principal Diagnosis Same as "Discharge Diagnosis" noted below under Discharge Instructions. Discharge Exam On physical examination of her left hip, there is some serous drainage on the dressing. She is sitting comfortably.. Discharge Data Procedures Performed Operation Date: 01/09/21 10:00 Actual Procedures p Left Hip Irrigation and Debridement(Left) - Noe Craft DO Hospital Course (1) S/P ORIF (open reduction internal fixation) fracture: On January 09, 2021 Colleen arrived at [facility] and underwent an I&D of a left hip wound without complication. She had a general anesthetic. Postoperatively she was started on Ancef and transferred to the general orthopedic floors. Her hospital course was uneventful. On postop day #1 her vital signs were stable and her pain was well controlled. She was able to ambulate well with a walker. After she had finished her last dose of Ancef, the dressing was changed and she was discharged home on oral Keflex and aspirin for DVT prophylaxis. She will follow-up with orthopedics in 2 weeks. PG Care Time/CCT Total # of Minutes Spent Total Time Spent with Patient: Total time spent is greater than 50% in coordination of care (as documented) at patient's floor/unit and/or counseling patient: Discharge Plan Discharge Items Patient Disposition: Home - Home Health Services Reason For Visit: Left Hip Drainage S/P ORIF Left Hip Discharge Diagnosis: Status post I&D of the left hip Activity: As commented below Non-emergency contact: Surgeon Call non-emergency contact if: your wound has increased redness and your wound has increased drainage Follow-up/Referrals: Salvador Kimble III, MD [Primary Care Provider] - Diet: Carb Count or DM1 Addtl Attending Provider Instructions: ORTHOPEDIC INSTRUCTIONS Activity Recommendations: Weightbearing as tolerated on the left leg Medications: Keflex 500 mg 4 times a day for 2 weeks Aspirin 81 mg twice a day Stop taking Xarelto 20 mg for now Dressing Care: [place] can be open to air as long as the incisions are not draining. If the incisions are draining or if the kenneth are getting caught on your clothes then please cover the kenneth with dry gauze. Change the dressings as necessary to keep the incision as dry as possible Showering: You may shower 5 days from the day of surgery as long as the incisions are not draining. Do not soak the incision. Let soapy water run over the kenneth and pat them dry. Things To Watch For: 1. Drainage from the incision site that occurs more than one week after your surgery. 2. Increased redness at the incision site. 3. Fever above 102 degrees Fahrenheit. 4. Unusual chest pain or shortness of breath. 5. Call [facility] at with any of the above problems Follow-Up Visit: Follow-up with Dr. Craft 2-3 weeks after your day of surgery. He will remove your kenneth and answer any questions. An appointment was probably scheduled when you signed-up for surgery in the office. If you have any questions call Pending Studies at Discharge: No Stand-Alone Forms: [facility], Smoking Cessation Medications and DC Order Prescriptions: New aspirin 81 mg Tablet,Delayed Release (Dr/Ec) 81 mg PO BID 42 Days Qty: 84 RF: 0 Continued insulin aspart U-100 [Novolog U-100 Insulin aspart] 100 unit/mL solution 45 unit continuous subcutaneous infusion DAILY 90 Days Qty: 40 RF: 3 Lantus U-100 Insulin 100 unit/mL solution 14 unit subcut QPM Qty: 10 RF: 0 omeprazole 20 mg tablet,delayed release (DR/EC) 20 mg PO DAILY RF: 0 cholecalciferol (vitamin D3) 125 mcg (5,000 unit) capsule 5,000 unit PO QAM RF: 0 calcium carbonate-vitamin D3 600 mg(1,500mg) -800 unit tablet 1 tab PO DAILY RF: 0 Lacto.acidophilus-Bif.animalis 31 billion cell capsule 1 cap PO DAILY RF: 0 (DME) Dexcom G6 Sensor Device See Rx Instructions .ROUTE .MEDSUPPLY Qty: 3 RF: 0 (DME) Dexcom G6 Transmitter Device See Rx Instructions .ROUTE .MEDSUPPLY Qty: 1 RF: 0 (DME) MiniMed 530G Insulin Pump Misc See Rx Instructions .ROUTE .MEDSUPPLY Qty: 1 RF: 0 (DME) Contour Next Test Strips Strip See Rx Instructions .ROUTE .MEDSUPPLY Qty: 100 RF: 3 levothyroxine 100 mcg tablet 100 mcg PO QAM Qty: 90 RF: 3 furosemide [Lasix] 20 mg tablet 20 mg PO 3XWK Qty: 90 RF: 3 ferrous sulfate 325 mg (65 mg iron) tablet,delayed release (DR/EC) 325 mg PO BID RF: 0 acetaminophen [Tylenol] 325 mg Capsule 650 mg PO QID PRN (Reason: Pain) RF: 0 Changed cephalexin 500 mg capsule 500 mg PO QID 14 Days Qty: 56 RF: 0 Discontinued Xarelto 20 mg tablet 20 mg PO QAM Qty: 90 RF: 3 Discharge Orders: Discharge Order (Routine); Ordered 01/10/21 Ordered By: Noe Craft Admission Data Admit Date/Time: 01/09/21 11:32 Attending Provider: Noe Craft Admit Provider: Noe Craft Primary Care Provider: Salvador Kimble III Other Providers: [facility],[facility]
[2021-01-10] MEDS ORDERED: PANTOprazole 40 MG TAB PO SCH (09:00)
[2021-01-10] MEDS ORDERED: MULTIVITAMIN TAB PO SCH (09:00)
[2021-01-10] MEDS: NovoLOG INSULIN PUMP SCH (09:24)
[2021-01-10] MEDS: ASPIRIN 81 MG ECTAB PO SCH (09:25)
[2021-01-10] MEDS: FERROUS SULFATE 325 MG TAB PO SCH (09:25)
[2021-01-12] MEDS ORDERED: FUROSEMIDE 20 MG TAB PO SCH (09:00)
== END 2021-01-10 10:27 | disposition home health service (06) ==
LOC: 3E 08:07 → ASU 08:07

== ENCOUNTER 2021-03-17 16:10 | Inpatient (IN) ==
[2021-03-17] MEDS ORDERED: SODIUM CHLORIDE 0.9% 1000ML 1,000 ML IV ONE (16:17)
[2021-03-17] MEDS ORDERED: ALBUT/IPRATROP 3MG/0.5MG NEB 3 ML VIAL NEB STA (16:26)
[2021-03-17 16:46] LABS: Basophils # (auto) 0.04 K/uL (0-0.2); Basophils % (auto) 0.5 %; Hematocrit (blood only) 35.3 % (37-47); Hemoglobin 11.2 g/dL (12.0-16.0); Immature Granulocytes # (auto) 0.09 K/uL (0.00-0.02); Immature Granulocytes % (auto) 1.2 %; Lymphocytes # (auto) 0.64 K/uL (1.2-3.4); Lymphocytes % (auto) 8.2 %; Mean Corpuscular Hemoglobin 26.9 pg (25-34); Mean Corpuscular Hgb Conc 31.7 g/dL (32-36); Mean Corpuscular Volume 84.7 fL (80-100); Mean Platelet Volume 10.7 fL (7.4-10.4); Monocytes # (auto) 0.47 K/uL (0.11-0.59); Neutrophils # (auto) 6.53 K/uL (1.4-6.5); Neutrophils % (auto) 84.1 %; Platelet Count 225 K/uL (130-400); RDW Coefficient of Variation 17.2 % (11.5-14.5); Red Blood Count 4.17 M/uL (4.2-5.4); White Blood Count 7.77 K/uL (4.8-10.8)
--- NOTE | 2021-03-17 16:53 | XRay Report ---
SINGLE VIEW CHEST CLINICAL HISTORY: Sepsis FINDINGS: An AP, portable, upright chest radiograph is compared to study dated 03/13/2021 and correla gerry with chest CT dated 02/06/2021. A left subclavian central venous infusion port is unchanged in po sition. A large hiatal hernia is noted. The heart is enlarged. There is mild pulmonary vascular conge stion. There are small pleural effusions with bibasilar consolidation. No pneumothorax is seen. The s keletal structures are osteopenic. The bony thorax is grossly intact. Calcified splenic artery aneury sms are seen in the left upper quadrant. Cholecystectomy clips are noted in the right upper quadrant. IMPRESSION: 1. Cardiomegaly with pulmonary vascular congestion. 2. Small pleural effusions with bibasilar consolidation. This could represent atelectasis and/or an i nfectious/inflammatory pneumonitis. Clinical correlation will be required. ACT 112: Negative or not required by law. Electronically signed by: Mukesh Hawley M.D. 03/17/2021 4:52 PM
[2021-03-17 16:54] LABS: Base Excess VBG -9.4 mEq/L; pH VBG 7.3 (7.36-7.41)
[2021-03-17 16:59] LABS: INR 1.3 (0.9-1.1); Partial Thromboplastin Ratio 1.2; Partial Thromboplastin Time 30.8 Seconds (21.0-31.0); Prothrombin Time 12.5 Seconds (9.0-12.0)
[2021-03-17 17:24] LABS: Alanine Aminotransferase 48 U/L (12-78); Albumin Globulin Ratio 0.4 (0.9-2); Albumin Level 2.1 gm/dl (3.4-5.0); Alkaline Phosphatase 300 U/L (45-117); Aspartate Aminotransferase 97 U/L (15-37); BUN Creatinine Ratio 23.6 (10-20); Bilirubin,Total 0.9 mg/dl (0.2-1); Blood Urea Nitrogen 37 mg/dl (7-18); Calcium 9.1 mg/dl (8.5-10.1); Carbon Dioxide 14 mmol/L (21-32); Chloride 96 mmol/L (98-107); Creatinine Clr Calc Pharmacy 26.4 ml/min; Est GFR (Non-African American) 31.1 ml/min; Globulin 5.2 gm/dl (2.5-4.0); Glucose 724 mg/dl (70-99); Lipase 43 U/L (73-393); Magnesium 1.9 mg/dl (1.8-2.4); Potassium 5.5 mmol/L (3.5-5.1); Sodium 127 mmol/L (136-145); Total Protein 7.3 gm/dl (6.4-8.2); Troponin I < 0.015 ng/ml (0-0.045)
[2021-03-17] MEDS ORDERED: CALCIUM GLUCONATE 10% 1,000 MG in SODIUM CHLORIDE 0.9% 50 ML IV STA (17:27)
[2021-03-17] MEDS ORDERED: INSULIN HUMAN REGULAR PER UNIT 10 UNITS in SYRINGE 9.9 ML IV STA (17:27)
[2021-03-17] MEDS ORDERED: cefTRIAXone SODIUM 1,000 MG/50 ML BAG IV STA (17:28)
[2021-03-17] MEDS ORDERED: AZITHROMYCIN 500 MG in DEXTROSE 5% 250 ML IV STA (17:28)
[2021-03-17] MEDS ORDERED: GLUCOSE 40% GEL 15 GM TUBE PO PRN (17:29)
[2021-03-17] MEDS ORDERED: GLUCAGON FOR INJ 1 MG VIAL SQ PRN (17:29)
[2021-03-17] MEDS ORDERED: DEXTROSE 50% 50 ML SYRINGE IV PRN (17:29)
[2021-03-17] MEDS ORDERED: GLUCOSE 10 TABS/TUBE PO PRN (17:29)
[2021-03-17] MEDS ORDERED: STAT IV Infusion **Titration per Protocol STA (17:29)
[2021-03-17] MEDS ORDERED: INSULIN REGULAR 250 UNITS in SODIUM CHLORIDE 0.9% 247.5 ML IV SCH (17:30)
--- NOTE | 2021-03-17 17:43 | Emergency Department Note ---
History of Present Illness General Chief complaint: Hyperglycemia Stated complaint: Pneumonia, Confusion, Hyperglycemia Time Seen by Provider: 03/17/21 16:17 Source: EMS History of Present Illness Provider complaint: Cough weakness confusion high blood sugar Maximum Pain Intensity: 0 Associated symptoms: + confusion, + cough and + weakness 80-year-old female brought in by EMS for cough, weakness, confusion, and high blood sugar. EMS reports that the patient was recently diagnosed with pneumonia and since then her blood sugars have been running high. Per EMS patient is supposed be on an insulin pump however there is no insulin pump attached to the patient. Home Medications Medication Instructions Recorded Confirmed Type calcium carbonate-vitamin D3 600 1 tab PO DAILY tab 06/19/19 03/17/21 History mg (1,500 mg)-800 unit tablet Lactobacillus 1 cap PO DAILY cap 09/17/19 03/17/21 History acidophilus-Bifidobac.animalis 31 billion cell capsule cholecalciferol (vitamin D3) 125 5,000 unit PO QAM 12/25/19 03/17/21 History mcg (5,000 unit) capsule Novolog U-100 Insulin aspart 100 45 unit CONTINUOUS SUBCUTANEOUS 02/20/20 03/17/21 Rx unit/mL subcutaneous solution INFUSION DAILY 90 Days #40 ml NS (insulin aspart U-100) omeprazole 20 mg tablet,delayed 20 mg PO DAILY 03/27/20 03/17/21 History release furosemide 20 mg tablet (Lasix) 20 mg PO 3XWK #90 tab 04/23/20 03/17/21 Rx levothyroxine 100 mcg tablet 100 mcg PO QAM #90 tab 04/23/20 03/17/21 Rx insulin glargine 100 unit/mL 14 unit SUBCUT QPM #10 ml 06/30/20 03/17/21 Rx subcutaneous solution (Lantus U-100 Insulin) blood sugar diagnostic (Contour #100 ea 09/22/20 02/16/21 Rx Next Test Strips) blood-glucose sensor (Dexcom G6 #3 ea 09/22/20 02/16/21 History Sensor) blood-glucose transmitter (Dexcom #1 ea 09/22/20 02/16/21 History G6 Transmitter) subcutaneous insulin pump (MiniMed #1 ea 09/22/20 02/16/21 History 530G Insulin Pump) acetaminophen 325 mg capsule 650 mg PO QID PRN 01/09/21 03/17/21 History (Tylenol) aspirin 81 mg tablet,delayed 81 mg PO DAILY tab 02/06/21 03/17/21 History release albuterol sulfate 90 mcg/actuation 3 inh INHALATION Q6H #18 g 03/13/21 03/17/21 Rx aerosol inhaler benzonatate 200 mg capsule 200 mg PO TID PRN #30 cap 03/13/21 03/17/21 Rx cefdinir 300 mg capsule 300 mg PO BID 10 Days #20 cap 03/13/21 03/17/21 Rx doxycycline hyclate 100 mg capsule 100 mg PO BID 10 Days #20 cap 03/13/21 03/17/21 Rx metoprolol succinate 25 mg 25 mg PO DAILY 03/17/21 03/17/21 History tablet,extended release 24 hr Allergies Allergy/AdvReac Type Severity Reaction Status Date / Time lisinopril AdvReac Intermediate ELEVATES Verified 03/17/21 16:47 POTASSIUM LEVELS losartan AdvReac Intermediate ELEVATES Verified 03/17/21 16:47 POTASSIUM LEVELS. 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 Lozada, [facility] (MRI abd rec in one year) Multiple pulmonary nodules CT SCANS TO KEEP MONITORING Urinary incontinence Surgical History History of anesthesia reaction SISTER>SLOW TO WAKE History of breast biopsy RT History of carpal tunnel release RT/LEFT History of cataract surgery bilateral History of cholecystectomy (12/02/19) History of colonoscopy (03/26/20) History of ERCP (~12/02/19) History of esophagogastroduodenoscopy (EGD) (03/26/20) Dr Lam, [facility], large hiatal hernia, nonbleeding duodenal ulcer (done for iron def anemia) History of hip surgery LEFT S/P FEMUR FRACTURE (SCREWS INTACT) History of tonsillectomy and adenoidectomy History of tooth extraction History of vascular access device APort--left side of chest S/P mastectomy (12/17/19) Right breast, with sentinel lymph node biopsy, Dr. Preet Burdick, [facility] [place] S/P thyroid biopsy benign Family History Sister Pancreatic cancer Breast cancer Father Lung cancer Cancer Brother Diabetes Brother Diabetes Parkinson disease Grandfather (Maternal) Myocardial infarction Denies family history of Ovarian cancer Prostate cancer Colorectal cancer Social History Smoking Status: Never smoker Second Hand Exposure: No; Hx Alcohol Use: No Preferred Language: Persian Communication Ability: Effective Visual Impairment: No Limitations Hearing Ability: Normal Soloist Dancer Required: No Beliefs That Will Affect Care: None marital status: / Current Living Situation: Alone current occupational status: retired Feels Safe at Home: Yes caffeine: Yes Dental Care, Regularly: Yes Physical Activity Frequency: Does not Exercise Seatbelt Use: always Sunscreen Use: Yes Assistive Devices: Walker Review of Systems Unobtainable due to cognitive status Physical Exam Vital Signs Vital Signs - 24 hr 03/17/21 16:10 03/17/21 16:17 03/17/21 16:26 Temperature Source Oral Pulse Rate 86 84 86 Pulse Rate from SpO2 Sensor 87 Respiratory Rate 20 24 24 Respiratory Effort / Characteristics Non-Labored Respiratory Depth Normal Blood Pressure 157/67 H Blood Pressure Mean 97 Pulse Oximetry 77 L 99 99 Oxygen Delivery Method Room Air Room Air Nasal Cannula Oxygen Flow Rate 2 Sepsis Recent Fever Within 48 Hours No Sepsis New/Unexplained Change in Mental Status N/A Sepsis Action Taken by Nursing No Action Required 03/17/21 16:28 03/17/21 16:30 03/17/21 16:40 Temperature Source Pulse Rate 84 87 Pulse Rate from SpO2 Sensor 84 86 Respiratory Rate 20 20 Respiratory Effort / Characteristics Respiratory Depth Blood Pressure Blood Pressure Mean Pulse Oximetry 77 L 99 98 Oxygen Delivery Method Room Air Nasal Cannula Nasal Cannula Oxygen Flow Rate 2 2 Sepsis Recent Fever Within 48 Hours Sepsis New/Unexplained Change in Mental Status Sepsis Action Taken by Nursing 03/17/21 16:50 03/17/21 17:00 03/17/21 17:10 Temperature Source Pulse Rate 88 90 89 Pulse Rate from SpO2 Sensor 85 87 89 Respiratory Rate 20 20 20 Respiratory Effort / Characteristics Respiratory Depth Blood Pressure Blood Pressure Mean Pulse Oximetry 99 94 100 Oxygen Delivery Method Nasal Cannula Nasal Cannula Nasal Cannula Oxygen Flow Rate 2 2 2 Sepsis Recent Fever Within 48 Hours Sepsis New/Unexplained Change in Mental Status Sepsis Action Taken by Nursing Physical Exam GENERAL: Distressed. HENT: Exam performed. -Head: Normocephalic and atraumatic. -Right Ear: External ear normal. No mastoid tenderness. -Left Ear: External ear normal. No mastoid tenderness. -Mouth/Throat: The oropharynx is clear and moist. No trismus in the jaw. No dental abscesses or uvula swelling. No oropharyngeal exudate or tonsillar abscesses. EYES: Conjunctivae and EOM are normal. Pupils are equal, round, and reactive to light. Right eye exhibits no discharge. Left eye exhibits no discharge. No scleral icterus. NECK: Normal range of motion. Neck supple. No JVD present. No spinous process tenderness present. No carotid bruit present. No rigidity. No tracheal deviation and normal range of motion present. No Brudzinski's sign and no Kernig's sign noted. CV: Normal rate, regular rhythm, normal heart sounds and intact distal pulses. T here is no peripheral edema. Palpable radial pulses bue. PULM/CHEST: Rhonchi bilaterally. ABD: The abdomen is soft. Bowel sounds are normal. She has no distension. No mass is present. There is no tenderness. There is no rebound, no guarding, no Francisco's sign and no tenderness at McBurney's point. Rovsig negative. New insulin pump present. MUSC/SKEL: Normal range of motion. There is no peripheral edema, tenderness or deformity. LYMPH: No cervical adenopathy. NEURO: Patient appears confused. Motor and sensation is grossly intact.GCS eye subscore is 3. GCS verbal subscore is 4. GCS motor subscore is 5. Course Course 1617: The patient was evaluated in room B2. A complete history and physical exam was performed Cardiac monitoring: An order was placed for continuous cardiac monitoring. The monitor shows a rate of 90 with sinus rhythm Patient was found to be hypoxic on room air at 70%. Patient was placed on supplemental oxygen via nasal cannula which did improve her oxygen saturation. EMR reviewed. Patient was recently seen in the emergency department less than 1 week ago and diagnosed with pneumonia. She started on doxycycline and cefdinir and discharged home. 174: Patient's son is at bedside now. He states that the patient usually has an insulin pump on her however it became disconnected on , 5 days ago. He states that for the last 5 days the patient has not been receiving any insulin through her insulin pump and they had misplaced her blood sugar testing strips so she is not been testing her blood sugar. The son reports no falls. Labs show a white blood cell count of 7.7. Hemoglobin 11.2. Venous pH 7.3. Sodium 127. Potassium 5.5. BUN 37 creatinine 1.56. Anion gap 17. Blood glucose 724. Lactic acid 3.4. Procalcitonin 0.81. 1 view chest x-ray does not show infiltrate. It is thought that the patient's pulmonary infection that was diagnosed on her previous visit in addition to her insulin pump being disconnected is caused her DKA which is caused the patient's confusion. CT of the head is still pending. Patient be treated with 1 g calcium gluconate and 10 units of insulin IV for her hyperkalemia. IV fluids have also been started. Patient will also be started on insulin drip 0.1 units/kg/h. Patient be treated with antibiotics for community-acquired pneumonia, azithromycin and cefepime given the patient was on cefdinir at home. 180: Vital signs stable supplemental oxygen. CT of the head negative. [facility]. Administered Medications Discontinued Medications Albuterol (Albut/Ipratrop 3mg/0.5mg Neb 3 Ml Vial) 3 ml NEB NOW STA Stop: 03/17/21 16:27 Last Admin: 03/17/21 16:37 Dose: 3 ml Documented by: [id number] Sodium Chloride (Nss 1000ml) 1,000 mls @ 999 mls/hr IV .Q1H1M ONE Stop: 03/17/21 17:17 Last Infusion: 03/17/21 17:37 Dose: 0 mls/hr Documented by: [id number] Admin: 03/17/21 16:36 Dose: 999 mls/hr Documented by: [id number] Calcium Gluconate 1,000 mg/ (Sodium Chloride) 60 mls @ 240 mls/hr IV NOW STA Stop: 03/17/21 17:41 Last Admin: 03/17/21 18:32 Dose: 240 mls/hr Documented by: [id number] Ceftriaxone Sodium (Rocephin) 1,000 mg in 50 mls @ 100 mls/hr IV NOW STA Stop: 03/17/21 17:57 Last Admin: 03/17/21 18:34 Dose: Not Given Documented by: [id number] Cefepime HCl (Maxipime) 2,000 mg in 20 mls @ 5 mls/min IV NOW STA; Protocol Stop: 03/17/21 18:06 Last Admin: 03/17/21 18:27 Dose: 5 mls/min Documented by: [id number] Critical Care Time Critical Care Time: Yes Total Critical Care Time: 80 I have personally spent greater than 80 minutes of critical care time in the direct management of this patient. This includes bedside care, interpretation of diagnostic studies, and testing, discussion with consultants, patient, and family members, and other required patient management activities. This 80 minutes is in excess of all separately billable procedures. Medical Decision Making Laboratory Data Result diagrams: 03/17/21 16:36 03/17/21 16:36 Lab Results 03/17/21 03/17/21 03/17/21 Range/Units 16:28 16:36 16:36 WBC (4.8-10.8) K/uL RBC (4.2-5.4) M/uL Hgb (12.0-16.0) g/dL Hct (37-47) % MCV (80-100) fL MCH (25-34) pg MCHC (32-36) g/dL RDW Std Deviation (36.4-46.3) fL RDW Coeff of Mikayla (11.5-14.5) % Plt Count (130-400) K/uL MPV (7.4-10.4) fL Immature Gran % (Auto) % Neut % (Auto) % Lymph % (Auto) % [place] % (Auto) % Eos % (Auto) % Baso % (Auto) % Neut # (Auto) (1.4-6.5) K/uL Lymph # (Auto) (1.2-3.4) K/uL [place] # (Auto) (0.11-0.59) K/uL Eos # (Auto) (0-0.5) K/uL Baso # (Auto) (0-0.2) K/uL Immature Gran # (Auto) (0.00-0.02) K/uL PT (9.0-12.0) Seconds INR (0.9-1.1) APTT (21.0-31.0) Seconds PTT Ratio VBG pH (7.36-7.41) VBG pCO2 (38-50) mmHg VBG pO2 mmHg VBG HCO3 mmol/L VBG O2 Saturation % VBG Base Excess mEq/L Barometric Pressure mm/Hg Sodium 127 L (136-145) mmol/L Potassium 5.5 H (3.5-5.1) mmol/L Chloride 96 L (98-107) mmol/L Carbon Dioxide 14 L (21-32) mmol/L Anion Gap 17.0 H (3-11) BUN 37 H (7-18) mg/dl Creatinine 1.56 H (0.6-1.2) mg/dl Est Cr Clr Drug Dosing 26.4 ml/min Est GFR ( Amer) 36.0 ml/min Est GFR (Non-Af Amer) 31.1 ml/min BUN/Creatinine Ratio 23.6 H (10-20) Glucose 724 H* (70-99) mg/dl POC Glucose > 600 H* (70-99) mg/dl Lactate (0.4-2.0) mmol/L Calcium 9.1 (8.5-10.1) mg/dl Phosphorus 4.9 (2.5-4.9) mg/dl Magnesium 1.9 (1.8-2.4) mg/dl Total Bilirubin 0.9 (0.2-1) mg/dl AST 97 H (15-37) U/L ALT 48 (12-78) U/L Alkaline Phosphatase 300 H (45-117) U/L Troponin I < 0.015 (0-0.045) ng/ml Total Protein 7.3 (6.4-8.2) gm/dl Albumin 2.1 L (3.4-5.0) gm/dl Globulin 5.2 H (2.5-4.0) gm/dl Albumin/Globulin Ratio 0.4 L (0.9-2) Lipase 43 L (73-393) U/L Beta-Hydroxybutyric Acd (0.2-2.81) mg/dl Procalcitonin 0.81 H (0-0.5) ng/ml SARS-CoV-2 (PCR) (Negative) 03/17/21 03/17/21 03/17/21 Range/Units 16:36 16:36 16:36 WBC 7.77 (4.8-10.8) K/uL RBC 4.17 L (4.2-5.4) M/uL Hgb 11.2 L (12.0-16.0) g/dL Hct 35.3 L (37-47) % MCV 84.7 (80-100) fL MCH 26.9 (25-34) pg MCHC 31.7 L (32-36) g/dL RDW Std Deviation 53.0 H (36.4-46.3) fL RDW Coeff of Mikayla 17.2 H (11.5-14.5) % Plt Count 225 (130-400) K/uL MPV 10.7 H (7.4-10.4) fL Immature Gran % (Auto) 1.2 % Neut % (Auto) 84.1 % Lymph % (Auto) 8.2 % [place] % (Auto) 6.0 % Eos % (Auto) 0.0 % Baso % (Auto) 0.5 % Neut # (Auto) 6.53 H (1.4-6.5) K/uL Lymph # (Auto) 0.64 L (1.2-3.4) K/uL [place] # (Auto) 0.47 (0.11-0.59) K/uL Eos # (Auto) 0.00 (0-0.5) K/uL Baso # (Auto) 0.04 (0-0.2) K/uL Immature Gran # (Auto) 0.09 H (0.00-0.02) K/uL PT 12.5 H (9.0-12.0) Seconds INR 1.3 H (0.9-1.1) APTT 30.8 (21.0-31.0) Seconds PTT Ratio 1.2 VBG pH (7.36-7.41) VBG pCO2 (38-50) mmHg VBG pO2 mmHg VBG HCO3 mmol/L VBG O2 Saturation % VBG Base Excess mEq/L Barometric Pressure mm/Hg Sodium (136-145) mmol/L Potassium (3.5-5.1) mmol/L Chloride (98-107) mmol/L Carbon Dioxide (21-32) mmol/L Anion Gap (3-11) BUN (7-18) mg/dl Creatinine (0.6-1.2) mg/dl Est Cr Clr Drug Dosing ml/min Est GFR ( Amer) ml/min Est GFR (Non-Af Amer) ml/min BUN/Creatinine Ratio (10-20) Glucose (70-99) mg/dl POC Glucose (70-99) mg/dl Lactate 3.4 H* (0.4-2.0) mmol/L Calcium (8.5-10.1) mg/dl Phosphorus (2.5-4.9) mg/dl Magnesium (1.8-2.4) mg/dl Total Bilirubin (0.2-1) mg/dl AST (15-37) U/L ALT (12-78) U/L Alkaline Phosphatase (45-117) U/L Troponin I (0-0.045) ng/ml Total Protein (6.4-8.2) gm/dl Albumin (3.4-5.0) gm/dl Globulin (2.5-4.0) gm/dl Albumin/Globulin Ratio (0.9-2) Lipase (73-393) U/L Beta-Hydroxybutyric Acd (0.2-2.81) mg/dl Procalcitonin (0-0.5) ng/ml SARS-CoV-2 (PCR) (Negative) 03/17/21 03/17/21 Range/Units 16:36 16:44 WBC (4.8-10.8) K/uL RBC (4.2-5.4) M/uL Hgb (12.0-16.0) g/dL Hct (37-47) % MCV (80-100) fL MCH (25-34) pg MCHC (32-36) g/dL RDW Std Deviation (36.4-46.3) fL RDW Coeff of Mikayla (11.5-14.5) % Plt Count (130-400) K/uL MPV (7.4-10.4) fL Immature Gran % (Auto) % Neut % (Auto) % Lymph % (Auto) % [place] % (Auto) % Eos % (Auto) % Baso % (Auto) % Neut # (Auto) (1.4-6.5) K/uL Lymph # (Auto) (1.2-3.4) K/uL [place] # (Auto) (0.11-0.59) K/uL Eos # (Auto) (0-0.5) K/uL Baso # (Auto) (0-0.2) K/uL Immature Gran # (Auto) (0.00-0.02) K/uL PT (9.0-12.0) Seconds INR (0.9-1.1) APTT (21.0-31.0) Seconds PTT Ratio VBG pH 7.30 L (7.36-7.41) VBG pCO2 33 L (38-50) mmHg VBG pO2 51 mmHg VBG HCO3 16 mmol/L VBG O2 Saturation 81.0 % VBG Base Excess -9.4 mEq/L Barometric Pressure 728.8 mm/Hg Sodium (136-145) mmol/L Potassium (3.5-5.1) mmol/L Chloride (98-107) mmol/L Carbon Dioxide (21-32) mmol/L Anion Gap (3-11) BUN (7-18) mg/dl Creatinine (0.6-1.2) mg/dl Est Cr Clr Drug Dosing ml/min Est GFR ( Amer) ml/min Est GFR (Non-Af Amer) ml/min BUN/Creatinine Ratio (10-20) Glucose (70-99) mg/dl POC Glucose (70-99) mg/dl Lactate (0.4-2.0) mmol/L Calcium (8.5-10.1) mg/dl Phosphorus (2.5-4.9) mg/dl Magnesium (1.8-2.4) mg/dl Total Bilirubin (0.2-1) mg/dl AST (15-37) U/L ALT (12-78) U/L Alkaline Phosphatase (45-117) U/L Troponin I (0-0.045) ng/ml Total Protein (6.4-8.2) gm/dl Albumin (3.4-5.0) gm/dl Globulin (2.5-4.0) gm/dl Albumin/Globulin Ratio (0.9-2) Lipase (73-393) U/L Beta-Hydroxybutyric Acd (0.2-2.81) mg/dl Procalcitonin (0-0.5) ng/ml SARS-CoV-2 (PCR) NEGATIVE (Negative) Imaging Data Radiologist's Impression: Chest X-Ray 03/17/21 16:18 SINGLE VIEW CHEST CLINICAL HISTORY: Sepsis FINDINGS: An AP, portable, upright chest radiograph is compared to study dated 03/13/2021 and correlated with chest CT dated 02/06/2021. A left subclavian central venous infusion port is unchanged in position. A large hiatal hernia is noted. The heart is enlarged. There is mild pulmonary vascular congestion. There are small pleural effusions with bibasilar consolidation. No pneumothorax is seen. The skeletal structures are osteopenic. The bony thorax is grossly intact. 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 Cholecystectomy clips are noted in the right upper quadrant. IMPRESSION: 1. Cardiomegaly with pulmonary vascular congestion. 2. Small pleural effusions with bibasilar consolidation. This could represent atelectasis and/or an infectious/inflammatory pneumonitis. Clinical correlation will be required. ACT 112: Negative or not required by law. Electronically signed by: Mukesh Hawley M.D. 03/17/2021 4:[address] 03/17/21 16:[address] DOSE: 1041.18 mGy.cm HISTORY: Altered mental status. TECHNIQUE: Multiaxial CT images of the head were performed without the use of intravenous contrast. Automated exposure control was utilized for this study. A dose lowering technique was utilized adhering to the principles of ALARA. Comparison: Head CT 11/30/2020. Findings: Trace fluid level within the right maxillary sinus. There is also trace fluid within the right mastoid air cells, unchanged. The left mastoid air cells are clear. The calvarium and skull base are intact. There is no mass, hematoma, midline shift, acute infarct. White matter hypodensity is nonspecific but suggestive of microvascular ischemic change. The ventricles and sulci demonstrate mild age-related involutional changes. Impression: No acute intracranial abnormality. Atrophy and microvascular ischemic changes. ACT 112: Negative or not required by law. Electronically signed by: Chung Briscoe M.D. 03/17/2021 6:01 PM ECG Data Indication: + SOB/dyspnea Rate (beats per minute): 84 Rhythm: + normal sinus ECG Intervals/blocks: + Normal QRS, + Normal MI and + Normal QT-c ECG ST segments: + Normal ST segments MDM Narrative 1617: The patient was evaluated in room B2. A complete history and physical exam was performed Cardiac monitoring: An order was placed for continuous cardiac monitoring. The monitor shows a rate of 90 with sinus rhythm Patient was found to be hypoxic on room air at 70%. Patient was placed on supplemental oxygen via nasal cannula which did improve her oxygen saturation. EMR reviewed. Patient was recently seen in the emergency department less than 1 week ago and diagnosed with pneumonia. She started on doxycycline and cefdinir and discharged home. 1742: Patient's son is at bedside now. He states that the patient usually has an insulin pump on her however it became disconnected on , 5 days ago. He states that for the last 5 days the patient has not been receiving any insulin through her insulin pump and they had misplaced her blood sugar testing strips so she is not been testing her blood sugar. The son reports no falls. Labs show a white blood cell count of 7.7. Hemoglobin 11.2. Venous pH 7.3. Sodium 127. Potassium 5.5. BUN 37 creatinine 1.56. Anion gap 17. Blood glucose 724. Lactic acid 3.4. Procalcitonin 0.81. 1 view chest x-ray does not show infiltrate. It is thought that the patient's pulmonary infection that was diagnosed on her previous visit in addition to her insulin pump being disconnected is caused her DKA which is caused the patient's confusion. CT of the head is still pending. Patient be treated with 1 g calcium gluconate and 10 units of insulin IV for her hyperkalemia. IV fluids have also been started. Patient will also be started on insulin drip 0.1 units/kg/h. Patient be treated with antibiotics for community-acquired pneumonia, azithromycin and cefepime given the patient was on cefdinir at home. 180: Vital signs stable supplemental oxygen. CT of the head negative. Patient will be admitted to the [facility] hospitalist team Dr. Jones team notified. Impression & Plan DKA (diabetic ketoacidosis), Pneumonia, Acute hyperkalemia Discharge Plan Visit Data Chief Complaint: Hyperglycemia Stated Complaint: Pneumonia, Confusion, Hyperglycemia ED Provider: Von Contreras Discharge Problem: DKA (diabetic ketoacidosis), Pneumonia, Acute hyperkalemia Patient Disposition: Admitted As Inpatient Forms Stand Alone Forms: [facility] Prescriptions Prescriptions: No Action insulin aspart U-100 [Novolog U-100 Insulin aspart] 100 unit/mL solution 45 unit continuous subcutaneous infusion DAILY 90 Days Qty: 40 RF: 3 Lantus U-100 Insulin 100 unit/mL solution 14 unit subcut QPM Qty: 10 RF: 0 omeprazole 20 mg tablet,delayed release (DR/EC) 20 mg PO DAILY RF: 0 cholecalciferol (vitamin D3) 125 mcg (5,000 unit) capsule 5,000 unit PO QAM RF: 0 aspirin 81 mg tablet,delayed release (DR/EC) 81 mg PO DAILY RF: 0 calcium carbonate-vitamin D3 600 mg(1,500mg) -800 unit tablet 1 tab PO DAILY RF: 0 Lacto.acidophilus-Bif.animalis 31 billion cell capsule 1 cap PO DAILY RF: 0 (DME) Dexcom G6 Sensor Device See Rx Instructions .ROUTE .MEDSUPPLY Qty: 3 RF: 0 (DME) Dexcom G6 Transmitter Device See Rx Instructions .ROUTE .MEDSUPPLY Qty: 1 RF: 0 (DME) MiniMed 530G Insulin Pump Misc See Rx Instructions .ROUTE .MEDSUPPLY Qty: 1 RF: 0 (DME) Contour Next Test Strips Strip See Rx Instructions .ROUTE .MEDSUPPLY Qty: 100 RF: 3 levothyroxine 100 mcg tablet 100 mcg PO QAM Qty: 90 RF: 3 furosemide [Lasix] 20 mg tablet 20 mg PO 3XWK Qty: 90 RF: 3 acetaminophen [Tylenol] 325 mg Capsule 650 mg PO QID PRN (Reason: Pain) RF: 0 cefdinir 300 mg capsule 300 mg PO BID 10 Days Qty: 20 RF: 0 doxycycline hyclate 100 mg capsule 100 mg PO BID 10 Days Qty: 20 RF: 0 albuterol sulfate 90 mcg/actuation HFA aerosol inhaler 3 inh inhalation Q6H Qty: 18 RF: 2 benzonatate 200 mg capsule 200 mg PO TID PRN (Reason: cough) Qty: 30 RF: 2 metoprolol succinate 25 mg tablet extended release 24 hr 25 mg PO DAILY RF: 0 Referrals Referrals: Salvador Kimble III, MD [Primary Care Provider] - Discharge Problem: DKA (diabetic ketoacidosis) Qualifiers: Diabetes mellitus type: type 1 Diabetes mellitus complication detail: without coma Qualified Code(s): E10.10 - Type 1 diabetes mellitus with ketoacidosis without coma Pneumonia Qualifiers: Pneumonia type: due to unspecified organism Laterality: unspecified laterality Lung location: unspecified part of lung Qualified Code(s): J18.9 - Pneumonia, unspecified organism
[2021-03-17] MEDS ORDERED: CEFEPIME 2,000 MG/20 ML VIAL IV STA (18:03)
--- NOTE | 2021-03-17 18:03 | CT Scan Report ---
HEAD CT NONCONTRAST CT DOSE: 1041.18 mGy.cm HISTORY: Altered mental status. TECHNIQUE: Multiaxial CT images of the head were performed without the use of intravenous contrast. A utomated exposure control was utilized for this study. A dose lowering technique was utilized adheri ng to the principles of ALARA. Comparison: Head CT 11/30/2020. Findings: Trace fluid level within the right maxillary sinus. There is also trace fluid within the ri ght mastoid air cells, unchanged. The left mastoid air cells are clear. The calvarium and skull base are intact. There is no mass, hematoma, midline shift, acute infarct. White matter hypodensity is non specific but suggestive of microvascular ischemic change. The ventricles and sulci demonstrate mild a ge-related involutional changes. Impression: No acute intracranial abnormality. Atrophy and microvascular ischemic changes. ACT 112: Negative or not required by law. Electronically signed by: Chung Briscoe M.D. 03/17/2021 6:01 PM
[2021-03-17 18:05] LABS: Phosphorus 4.9 mg/dl (2.5-4.9)
--- NOTE | 2021-03-17 19:06 | History & Physical Report ---
Date of Service March 17, 2021 Assessment & Plan (1) DKA (diabetic ketoacidosis): Plan: Colleen is a 80 yo female with a PMHx of DM1 on insulin pump, anemia, breast cancer on chemo, GERD, hypothyroid, diastolic CHF, HTN brought into the ED via EMS with confusion, cough, and fatigue. 1) DKA -likely due to not using insulin pump and pneumonia -K 5.5, corrected sodium 137, BSG 724 -cont. insulin drip, NSS w/ 20Meq Kcl @ 100 -regular BSG accu checks; add DW5 once BSG <250 -BMP, VBGH, Mag, Phos pending. Follow q4h. -replace electrolytes as needed -hold insulin pump -pharm consulted -NPO to prevent aspiration secondary to confusion 2) Pneumonia with acute respiratory failure with hypoxia -discharged from [facility] on 03/13 from the ER with pneumonia -presented to ED with O2 sat in 70s; 90s with 2L oxygen -WBC normal -Chest XR: small pleural effusion with bibasilar consolidation -hold cefdinir and doxycycline -Rocephin x1 in ED -started azithromax and cefepime in ED, cont. as does have a h/o Pseudomonas infection -blood cx pending 3) SETH -Cr 1.56, likely prerenal sec to dehydration -cont. fluids -hold lasix -trend BMP 4) GERD -cont. protonix 5) Diastolic CHF -hold lasix 6) CAD -cont. metoprolol, aspirin 7) hypothyroid-last TSH 11.6 in 01/2021 -cont. levothyroxine -check TSH in AM DVT ppx: Heparin 5000 SQ BID FEN/GI: NPO, NSS w/ 20Meq Kcl @ 100 Code Status: conditional: DNR only Dispo: PCU (2) Pneumonia: (3) Acute hyperkalemia: (4) Hypothyroidism: (5) Vaginal prolapse: (6) Diastolic CHF: (7) Breast cancer: (8) GERD (gastroesophageal reflux disease): History of Present Illness Chief Complaint: Confusion, fatigue, hyperglycemia Primary Care Provider: Salvador Kimble MD Colleen is a 80 yo female with a PMHx of DM1 on insulin pump, anemia, breast cancer on chemo, GERD, hypothyroid, diastolic CHF, HTN brought into the ED via EMS with confusion, cough, and fatigue. History obtained via son due to patient's confusion. She was just discharged from [facility] ER 4 days ago for pneumonia treated with cefdinir and doxycycline. Her son has been visiting Colleen at her home since discharge. Through yesterday, Colleen seemed her normal self, however, today she was confused and constantly fatigued, in and out of sleep. She has had an associated cough secondary to her pneumonia. He noticed that her insulin pump was not connected which could have been as far back as . EMS was contacted and her blood sugars were extremely high. Allergies Allergy/AdvReac Type Severity Reaction Status Date / Time lisinopril AdvReac Intermediate ELEVATES Verified 03/17/21 16:47 POTASSIUM LEVELS losartan AdvReac Intermediate ELEVATES Verified 03/17/21 16:47 POTASSIUM LEVELS. Home Medications Medication Instructions Recorded Confirmed Type calcium carbonate-vitamin D3 600 1 tab PO DAILY tab 06/19/19 03/17/21 History mg (1,500 mg)-800 unit tablet Lactobacillus 1 cap PO DAILY cap 09/17/19 03/17/21 History acidophilus-Bifidobac.animalis 31 billion cell capsule cholecalciferol (vitamin D3) 125 5,000 unit PO QAM 12/25/19 03/17/21 History mcg (5,000 unit) capsule Novolog U-100 Insulin aspart 100 45 unit CONTINUOUS SUBCUTANEOUS 02/20/20 03/17/21 Rx unit/mL subcutaneous solution INFUSION DAILY 90 Days #40 ml NS (insulin aspart U-100) omeprazole 20 mg tablet,delayed 20 mg PO DAILY 03/27/20 03/17/21 History release furosemide 20 mg tablet (Lasix) 20 mg PO 3XWK #90 tab 04/23/20 03/17/21 Rx levothyroxine 100 mcg tablet 100 mcg PO QAM #90 tab 04/23/20 03/17/21 Rx insulin glargine 100 unit/mL 14 unit SUBCUT QPM #10 ml 06/30/20 03/17/21 Rx subcutaneous solution (Lantus U-100 Insulin) blood sugar diagnostic (Contour #100 ea 09/22/20 02/16/21 Rx Next Test Strips) blood-glucose sensor (Dexcom G6 #3 ea 09/22/20 02/16/21 History Sensor) blood-glucose transmitter (Dexcom #1 ea 09/22/20 02/16/21 History G6 Transmitter) subcutaneous insulin pump (MiniMed #1 ea 09/22/20 02/16/21 History 530G Insulin Pump) acetaminophen 325 mg capsule 650 mg PO QID PRN 01/09/21 03/17/21 History (Tylenol) aspirin 81 mg tablet,delayed 81 mg PO DAILY tab 02/06/21 03/17/21 History release albuterol sulfate 90 mcg/actuation 3 inh INHALATION Q6H #18 g 03/13/21 03/17/21 Rx aerosol inhaler benzonatate 200 mg capsule 200 mg PO TID PRN #30 cap 03/13/21 03/17/21 Rx cefdinir 300 mg capsule 300 mg PO BID 10 Days #20 cap 03/13/21 03/17/21 Rx doxycycline hyclate 100 mg capsule 100 mg PO BID 10 Days #20 cap 03/13/2102/18 Rx metoprolol succinate 25 mg 25 mg PO DAILY 03/17/21 03/17/21 History tablet,extended release 24 hr Past Med/Surg History Medical History Anemia Compression fracture of thoracic vertebra HEALED Deep vein thrombosis (DVT) of right lower extremity (09/04/19) nonocclusive deep venous thrombus within right peroneal vein>LAST YEAR WHILE ON CHEMO (REASON FOR XARELTO) Diabetes mellitus type 1 + insulin pump/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 Lozada, [facility] (MRI abd rec in one year) Multiple pulmonary nodules CT SCANS TO KEEP MONITORING Urinary incontinence Surgical History History of anesthesia reaction SISTER>SLOW TO WAKE History of breast biopsy RT History of carpal tunnel release RT/LEFT History of cataract surgery bilateral History of cholecystectomy (12/02/19) History of colonoscopy (03/26/20) History of ERCP (~12/02/19) History of esophagogastroduodenoscopy (EGD) (03/26/20) Dr Lam, [facility], large hiatal hernia, nonbleeding duodenal ulcer (done for iron def anemia) History of hip surgery LEFT S/P FEMUR FRACTURE (SCREWS INTACT) History of tonsillectomy and adenoidectomy History of tooth extraction History of vascular access device APort--left side of chest S/P mastectomy (12/17/19) Right breast, with sentinel lymph node biopsy, Dr. Preet Burdick, [facility] S/P thyroid biopsy benign Family History Sister Pancreatic cancer Breast cancer Father Lung cancer Cancer Brother Diabetes Brother Diabetes Parkinson disease Grandfather (Maternal) Myocardial infarction Denies family history of Ovarian cancer Prostate cancer Colorectal cancer Social History Smoking Status: Never smoker Second Hand Exposure: No; Hx Alcohol Use: No Preferred Language: Maldivian Communication Ability: Effective Visual Impairment: No Limitations Hearing Ability: Normal Heading Pinner Required: No Beliefs That Will Affect Care: None marital status: / Current Living Situation: Alone current occupational status: retired Feels Safe at Home: Yes caffeine: Yes Dental Care, Regularly: Yes Physical Activity Frequency: Does not Exercise Seatbelt Use: always Sunscreen Use: Yes Assistive Devices: Walker Review of Systems Review of Systems: Unobtainable due to cognitive status (patient confused) Physical Exam Physical Exam: Constitutional: in moderate distress, confused. Vitals as above. HEENT: No scleral injection or discharge. Moist mucous membranes. Clear oropharynx. No exudate. No lesions. Tympanic membranes are clear bilaterally. Neck: Supple without lymphadenopathy or thyromegaly. Trachea midline. Lungs: Diffuse rhonchi bilaterally Cardiac: Regular rate and rhythm. No murmurs. No extremity edema. Abdomen: Bowel sounds present. Soft, nontender, and nondistended.No rebound or guarding. No masses. No hepatosplenomegaly. MSK: No cyanosis or clubbing. Extremities motor strength 5/5. Neurologic: alert, not oriented x3 Results & Data Results & Data ([facility]) Vital Signs (Past 12 Hours) Vital Signs Pulse Resp BP Pulse Ox 03/17/21 17:10 89 20 100 03/17/21 17:00 90 20 94 03/17/21 16:50 88 20 99 03/17/21 16:40 87 20 98 03/17/21 16:30 84 20 99 03/17/21 16:28 77 L 03/17/21 16:26 86 24 99 03/17/21 16:17 84 24 99 03/17/21 16:10 86 20 157/67 H 77 L Laboratory Results Laboratory Results WBC 7.77 K/uL (4.8-10.8) 03/17/21 16:36 RBC 4.17 M/uL (4.2-5.4) L 03/17/21 16:36 Hgb 11.2 g/dL (12.0-16.0) L 03/17/21 16:36 Hct 35.3 % (37-47) L 03/17/21 16:36 MCV 84.7 fL (80-100) 03/17/21 16:36 MCH 26.9 pg (25-34) 03/17/21 16:36 MCHC 31.7 g/dL (32-36) L 03/17/21 16:36 RDW Std Deviation 53.0 fL (36.4-46.3) H 03/17/21 16:36 RDW Coeff of Mikayla 17.2 % (11.5-14.5) H 03/17/21 16:36 Plt Count 225 K/uL (130-400) 03/17/21 16:36 MPV 10.7 fL (7.4-10.4) H 03/17/21 16:36 Immature Gran % (Auto) 1.2 % 03/17/21 16:36 Neut % (Auto) 84.1 % 03/17/21 16:36 Lymph % (Auto) 8.2 % 03/17/21 16:36 [place] % (Auto) 6.0 % 03/17/21 16:36 Eos % (Auto) 0.0 % 03/17/21 16:36 Baso % (Auto) 0.5 % 03/17/21 16:36 Neut # (Auto) 6.53 K/uL (1.4-6.5) H 03/17/21 16:36 Lymph # (Auto) 0.64 K/uL (1.2-3.4) L 03/17/21 16:36 [place] # (Auto) 0.47 K/uL (0.11-0.59) 03/17/21 16:36 Eos # (Auto) 0.00 K/uL (0-0.5) 03/17/21 16:36 Baso # (Auto) 0.04 K/uL (0-0.2) 03/17/21 16:36 Immature Gran # (Auto) 0.09 K/uL (0.00-0.02) H 03/17/21 16:36 PT 12.5 Seconds (9.0-12.0) H 03/17/21 16:36 INR 1.3 (0.9-1.1) H 03/17/21 16:36 APTT 30.8 Seconds (21.0-31.0) 03/17/21 16:36 PTT Ratio 1.2 03/17/21 16:36 VBG pH 7.30 (7.36-7.41) L 03/17/21 16:36 VBG pCO2 33 mmHg (38-50) L 03/17/21 16:36 VBG pO2 51 mmHg 03/17/21 16:36 VBG HCO3 16 mmol/L 03/17/21 16:36 VBG O2 Saturation 81.0 % 03/17/21 16:36 VBG Base Excess -9.4 mEq/L 03/17/21 16:36 Barometric Pressure 728.8 mm/Hg 03/17/21 16:36 Sodium 127 mmol/L (136-145) L 03/17/21 16:36 Potassium 5.5 mmol/L (3.5-5.1) H 03/17/21 16:36 Chloride 96 mmol/L (98-107) L 03/17/21 16:36 Carbon Dioxide 14 mmol/L (21-32) L 03/17/21 16:36 Anion Gap 17.0 (3-11) H 03/17/21 16:36 BUN 37 mg/dl (7-18) H 03/17/21 16:36 Creatinine 1.56 mg/dl (0.6-1.2) H 03/17/21 16:36 Est Cr Clr Drug Dosing 26.4 ml/min 03/17/21 16:36 Est GFR ( Amer) 36.0 ml/min 03/17/21 16:36 Est GFR (Non-Af Amer) 31.1 ml/min 03/17/21 16:36 BUN/Creatinine Ratio 23.6 (10-20) H 03/17/21 16:36 Glucose 724 mg/dl (70-99) H* 03/17/21 16:36 POC Glucose > 600 mg/dl (70-99) H* 03/17/21 20:10 Lactate 3.7 mmol/L (0.4-2.0) H* 03/17/21 18:47 Calcium 9.1 mg/dl (8.5-10.1) 03/17/21 16:36 Phosphorus 4.9 mg/dl (2.5-4.9) 03/17/21 16:36 Magnesium 1.9 mg/dl (1.8-2.4) 03/17/21 16:36 Total Bilirubin 0.9 mg/dl (0.2-1) 03/17/21 16:36 AST 97 U/L (15-37) H 03/17/21 16:36 ALT 48 U/L (12-78) 03/17/21 16:36 Alkaline Phosphatase 300 U/L (45-117) H 03/17/21 16:36 Troponin I < 0.015 ng/ml (0-0.045) 03/17/21 16:36 Total Protein 7.3 gm/dl (6.4-8.2) 03/17/21 16:36 Albumin 2.1 gm/dl (3.4-5.0) L 03/17/21 16:36 Globulin 5.2 gm/dl (2.5-4.0) H 03/17/21 16:36 Albumin/Globulin Ratio 0.4 (0.9-2) L 03/17/21 16:36 Lipase 43 U/L (73-393) L 03/17/21 16:36 Beta-Hydroxybutyric Acd mg/dl (0.2-2.81) 03/17/21 16:36 Procalcitonin 0.81 ng/ml (0-0.5) H 03/17/21 16:36 SARS-CoV-2 (PCR) NEGATIVE (Negative) 03/17/21 16:44 Impressions Chest X-Ray 03/17/21 16:18 SINGLE VIEW CHEST CLINICAL HISTORY: Sepsis FINDINGS: An AP, portable, upright chest radiograph is compared to study dated 03/13/2021 and correlated with chest CT dated 02/06/2021. A left subclavian central venous infusion port is unchanged in position. A large hiatal hernia is noted. The heart is enlarged. There is mild pulmonary vascular congestion. There are small pleural effusions with bibasilar consolidation. No pneumothorax is seen. The skeletal structures are osteopenic. The bony thorax is grossly intact. 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 Cholecystectomy clips are noted in the right upper quadrant. IMPRESSION: 1. Cardiomegaly with pulmonary vascular congestion. 2. Small pleural effusions with bibasilar consolidation. This could represent atelectasis and/or an infectious/inflammatory pneumonitis. Clinical correlation will be required. ACT 112: Negative or not required by law. Electronically signed by: Mukesh Hawley M.D. 03/17/2021 4:[address] 03/17/21 16:[address] DOSE: 1041.18 mGy.cm HISTORY: Altered mental status. TECHNIQUE: Multiaxial CT images of the head were performed without the use of intravenous contrast. Automated exposure control was utilized for this study. A dose lowering technique was utilized adhering to the principles of ALARA. Comparison: Head CT 11/30/2020. Findings: Trace fluid level within the right maxillary sinus. There is also trace fluid within the right mastoid air cells, unchanged. The left mastoid air cells are clear. The calvarium and skull base are intact. There is no mass, hematoma, midline shift, acute infarct. White matter hypodensity is nonspecific but suggestive of microvascular ischemic change. The ventricles and sulci demonstrate mild age-related involutional changes. Impression: No acute intracranial abnormality. Atrophy and microvascular ischemic changes. ACT 112: Negative or not required by law. Electronically signed by: Chung Briscoe M.D. 03/17/2021 6:01 PM ECG Additional Comments: HR ~82, P waves present, normal sinus rhythm Code Status & VTE Plan Code Status Conditional-no resuscitation but ok with intubation VTE Prophylaxis Plan VTE Prophylaxis will be ordered: Yes Supervising Physician Co-Signing Physician Notes I personally examined the patient and verified all jackson points of history and exam, discussed case, and agree with decision making with Dr. Vasquez Vick with t he following additions/exceptions: This patient is an 80-year-old female with a history of type 1 diabetes mellitus, hypothyroidism, chronic diastolic CHF, GERD, CAD, breast cancer, and DVT no longer on Xarelto, who presents to the ER with lethargy and confusion in the setting of being recently treated as an outpatient for community-acquired pneumonia. It seems that her insulin pump was dislodged but it is unclear when this occurred. Patient was found to have a blood sugar in the 700s, and anion gap of 17 on her chemistry, pH low at 7.3, acute kidney injury, and was quite lethargic. She was also found to be hypoxic in the 70s on room air and was placed on oxygen. Initially there was some difficulty getting IV access and there was a bit of a delay getting her IV fluids and insulin drip going. Patient did wake up for me and answered a few yes or no questions but quickly fell back asleep. She denied any chest pain or abdominal pain, no nausea. In the ER, she was given IV calcium gluconate for mildly elevated potassium, 10 units of IV insulin and started on insulin drip, 1 L of normal saline IV fluids, and a dose of IV cefepime and azithromycin for her ongoing pneumonia. History and ROS reviewed as above Vitals reviewed Gen: Drowsy but wakes up and becomes awake and alert and oriented to person and place, NAD HEENT: [anicteric sclerae, EOMI, dry mucous membranes CV: RRR no mgr nl S1S2 Pulm: [Positive rhonchi bilaterally, no wheezes Abd: +BS soft NT ND no masses or hernias Ext: No edema, 2+ DP pulses Skin: No rashes, warm/dry Neuro: Can move all extremities Laboratory values and radiology studies reviewed ECG reviewed 80-year-old female here with DKA secondary to dislodged insulin pump as well as recent infection with pneumonia. -Continue aggressive IV fluid hydration with potassium the fluids, follow serial chemistries and replace electrolytes as needed -Continue insulin drip until anion gap is closed and then convert to basal bolus insulin -Keep n.p.o. for now until lethargy is improved -Continue IV antibiotics in the form of cefepime and azithromycin for her community-acquired pneumonia-there is risk for her for gram-negative pneumonia given history of Pseudomonas and frequent hospitalizations -TSH was elevated 1 month ago-repeat TSH in the morning and adjust levothyroxine as needed Resident Activity Tracking Resident Involvement: Resident Care Provided Care Provided: Adult Hospital Medicine (1) DKA (diabetic ketoacidosis) Diabetes mellitus complication detail: without coma Diabetes mellitus type: type 1 Qualified Code(s): E10.10 - Type 1 diabetes mellitus with ketoacidosis without coma (2) Pneumonia Laterality: left Lung location: lower lobe of lung Pneumonia type: due to unspecified organism Qualified Code(s): J18.9 - Pneumonia, unspecified organism
[2021-03-17] MEDS: NSS + 20MEQ KCL 20 MEQ/1,000 ML BAG IV SCH (22:04)
[2021-03-17 22:16] LABS: BUN Creatinine Ratio 22.5 (10-20); Calcium 8.5 mg/dl (8.5-10.1); Creatinine Clr Calc Pharmacy 23.5 ml/min; Est GFR (African American) 31.3 ml/min; Magnesium 1.7 mg/dl (1.8-2.4)
[2021-03-17 22:30] LABS: Beta-Hydroxybutyrate 43.02 mg/dl (0.2-2.81)
[2021-03-17 22:37] LABS: Appearance Urine Clear (Clear); Bacteria Urine Automated Negative (Negative); Bilirubin Urine Negative (Negative); Blood Urine Negative (Negative); Color Urine Yellow; Glucose Urine UA 3+ (Negative); Ketones Urine 1+ (Negative); Leukocyte Esterase Urine Negative (Negative); Nitrite Urine Negative (Negative); Protein Urine 2+ (Negative); RBC Urine Automated 0-4 /hpf (0-4); Specific Gravity Urine 1.024 (1.000-1.030); Urobilinogen Urine Negative (Negative)
[2021-03-17 22:39] LABS: Phosphorus 3.6 mg/dl (2.5-4.9)
[2021-03-17 22:41] LABS: Potassium 4.2 mmol/L (3.5-5.1)
[2021-03-17] MEDS: INSULIN ASPART 100 UNITS/ML 3 ML PEN SC SCH (22:55)
[2021-03-17] MEDS ORDERED: ALBUTEROL HFA 8 GM INHALER INH PRN (23:41)
[2021-03-17] MEDS ORDERED: ACETAMINOPHEN 325 MG TAB PO PRN (23:41)
[2021-03-17] MEDS ORDERED: PHARMACY GLYCEMIC MGMT CONSULT PRN ×2 (23:41)
[2021-03-17] MEDS ORDERED: ONDANSETRON INJ 2 MG/ML 2 ML VIAL IV PRN (23:41)
--- NOTE | 2021-03-18 01:28 | Billing Data ---
Date of Service March 17, 2021 Coding Level of Care Code 53797 Initial Inpt Care Lvl 3
[2021-03-18] MEDS ORDERED: MAGNESIUM SULFATE / D5W 1 GM/100 ML BAG IV ONE (01:30)
[2021-03-18 02:14] LABS: Basophils # (auto) 0.01 K/uL (0-0.2); Basophils % (auto) 0.1 %; Hematocrit (blood only) 30.4 % (37-47); Hemoglobin 9.9 g/dL (12.0-16.0); Immature Granulocytes # (auto) 0.06 K/uL (0.00-0.02); Immature Granulocytes % (auto) 0.7 %; Lymphocytes # (auto) 0.93 K/uL (1.2-3.4); Mean Corpuscular Hemoglobin 26.8 pg (25-34); Mean Corpuscular Hgb Conc 32.6 g/dL (32-36); Mean Corpuscular Volume 82.2 fL (80-100); Mean Platelet Volume 10.1 fL (7.4-10.4); Monocytes # (auto) 0.62 K/uL (0.11-0.59); Monocytes % (auto) 7.3 %; Neutrophils # (auto) 6.82 K/uL (1.4-6.5); Neutrophils % (auto) 80.9 %; Platelet Count 161 K/uL (130-400); RDW Coefficient of Variation 16.5 % (11.5-14.5); RDW Standard Deviation 49.5 fL (36.4-46.3); White Blood Count 8.44 K/uL (4.8-10.8)
[2021-03-18] MEDS: HEPARIN SOD 5,000 UNIT/0.5 ML VIAL SQ SCH ×3 (02:22→21:15)
[2021-03-18 02:40] LABS: Albumin Globulin Ratio 0.4 (0.9-2); Bilirubin,Total 0.7 mg/dl (0.2-1); Calcium 8.7 mg/dl (8.5-10.1); Creatinine Clr Calc Pharmacy 24.5 ml/min; Est GFR (African American) 32.9 ml/min; Est GFR (Non-African American) 28.4 ml/min; Globulin 4.6 gm/dl (2.5-4.0); Magnesium 1.8 mg/dl (1.8-2.4); Phosphorus 2.9 mg/dl (2.5-4.9); Potassium 3.8 mmol/L (3.5-5.1); Total Protein 6.6 gm/dl (6.4-8.2)
[2021-03-18 02:53] LABS: Beta-Hydroxybutyrate 13.97 mg/dl (0.2-2.81); Thyroid Stimulating Hormone 13.8 uIu/ml (0.300-4.500)
[2021-03-18] MEDS: LEVOTHYROXINE SODIUM 100 MCG TABLET PO SCH (06:22)
[2021-03-18 07:23] LABS: Estimated Average Glucose 263 mg/dl; Hemoglobin A1C 10.8 % (4.5-5.6)
[2021-03-18] MEDS: NSS + 20MEQ KCL 20 MEQ/1,000 ML BAG IV SCH (08:29)
[2021-03-18] MEDS: INSULIN ASPART 100 UNITS/ML 3 ML PEN SC SCH ×4 (10:18→20:20)
[2021-03-18] MEDS: ASPIRIN 81 MG ECTAB PO SCH (10:39)
[2021-03-18] MEDS: METOPROLOL SUCC 25MG EXT REL TAB PO SCH (10:39)
[2021-03-18] MEDS: PANTOprazole 40 MG TAB PO SCH (10:42)
[2021-03-18 11:04] LABS: BUN Creatinine Ratio 29.6 (10-20); Calcium 8.8 mg/dl (8.5-10.1); Creatinine Clr Calc Pharmacy 30.3 ml/min; Est GFR (African American) 42.5 ml/min; Est GFR (Non-African American) 36.7 ml/min; Potassium 3.7 mmol/L (3.5-5.1)
[2021-03-18] MEDS: D5NSS + 20MEQ KCL 20 MEQ/1,000 ML BAG IV SCH ×2 (11:30→21:14)
--- NOTE | 2021-03-18 13:03 | Electrocardiogram Report ---
Test Reason : Blood Pressure : / mmHG Vent. Rate : 084 BPM Atrial Rate : 084 BPM P-R Int : 174 ms QRS Dur : 082 ms QT Int : 390 ms P-R-T Axes : 051 064 020 degrees QTc Int : 460 ms Normal sinus rhythm Normal ECG When compared with ECG of 13-MAR-2021 14:44, No significant change was found Confirmed by Meño Boss ([id number]) on 03/18/2021 1:03:18 PM Referred By: REFERRED SELF Confirmed By:Anders Boss
--- NOTE | 2021-03-18 14:05 | Pharmacy Report ---
Pharmacy Glycemic Short Note 2 - Date of Service March 18, 2021 - Glycemic Short BSG Results (Last 24 hours): 03/17/21 03/17/21 03/17/21 16:28 16:36 20:10 Glucose 724 H* POC Glucose > 600 H* > 600 H* 03/17/21 03/17/21 03/18/21 21:26 21:39 00:02 Glucose 643 H* POC Glucose > 600 H* 564 H* 03/18/21 03/18/21 03/18/21 00:56 01:48 01:55 Glucose 538 H* POC Glucose 574 H* 509 H* 03/18/21 03/18/21 03/18/21 02:54 03:54 05:01 Glucose POC Glucose 483 H* 421 H* 358 H* 03/18/21 03/18/21 03/18/21 06:06 07:00 07:56 Glucose POC Glucose 356 H* 251 H 256 H 03/18/21 03/18/21 03/18/21 09:11 10:15 10:35 Glucose 105 H POC Glucose 172 H 133 H 03/18/21 03/18/21 03/18/21 10:35 10:52 11:10 Glucose POC Glucose 121 H 118 H 121 H 03/18/21 03/18/21 03/18/21 11:35 11:58 12:28 Glucose POC Glucose 123 H 113 H 126 H 03/18/21 13:16 Glucose POC Glucose 126 H OUTPATIENT ANTIDIABETIC REGIMEN: * Insulin pump settings taken from last admission note - Medtronic insulin pump * Basal: 8159-1396 = 0.45 units/hr + 6009-0418 = 0.625 units/hr + 0512-0834 = 0.5 units/hr (12.3 units/day) * Sensitivity Factor: 55 * Carb Ratio: 12 ASSESSMENT: * 80 year old female, DM1 on insulin pump. Admitted with DKA and started on insulin infusion. Anion gap closed this AM, however insulin drip still running at very high rates (up to ~24 units/hr at one point). Per notes, patient very confused and insulin pump had not been connected * BSGs much further improving today, insulin drip paused late morning - patient Colleen is a 80 yo female with a PMHx of DM1 on insulin pump, anemia, breast cancer on chemo, GERD, hypothyroid, diastolic CHF, HTN brought into the ED via EMS with confusion, cough, and fatigue. History obtained via son due to patient's confusion. She was just discharged from [facility] ER 4 days ago for pneumonia treated with cefdinir and doxycycline. Her son has been visiting Colleen at her home since discharge. Through yesterday, Colleen seemed her normal self, however, today she was confused and constantly fatigued, in and out of sleep. She has had an associated cough secondary to her pneumonia. He noticed that her insulin pump was not connected which could have been as far back as . EMS was contacted and her blood sugars were extremely high. PLAN FOR INPATIENT GLYCEMIC CONTROL: * Hold outpatient oral diabetes medications * Basal insulin * Lantus [] units SQ BID * Bolus insulin * NovoLog per scale ACHS or Q6hrs while NPO * Goal Range: Low [] mg/dL - High [] mg/dL * Correction Factor: [] mg/dL/unit * Nutritional / Prandial insulin per carb ratio of 1 unit per [] grams CHO c onsumed PLAN FOR DISCHARGE: *
[2021-03-18] MEDS ORDERED: INSULIN GLARGINE SOLOSTAR 100 UNITS/ML 3 ML PEN SC ONE ×2 (14:30→14:45)
--- NOTE | 2021-03-18 14:41 | Pharmacy Report ---
Pharmacy Glycemic Short Note 2 - Date of Service March 18, 2021 - Glycemic Short BSG Results (Last 24 hours): 03/17/21 03/17/21 03/17/21 16:28 16:36 20:10 Glucose 724 H* POC Glucose > 600 H* > 600 H* 03/17/21 03/17/21 03/18/21 21:26 21:39 00:02 Glucose 643 H* POC Glucose > 600 H* 564 H* 03/18/21 03/18/21 03/18/21 00:56 01:48 01:55 Glucose 538 H* POC Glucose 574 H* 509 H* 03/18/21 03/18/21 03/18/21 02:54 03:54 05:01 Glucose POC Glucose 483 H* 421 H* 358 H* 03/18/21 03/18/21 03/18/21 06:06 07:00 07:56 Glucose POC Glucose 356 H* 251 H 256 H 03/18/21 03/18/21 03/18/21 09:11 10:15 10:35 Glucose 105 H POC Glucose 172 H 133 H 03/18/21 03/18/21 03/18/21 10:35 10:52 11:10 Glucose POC Glucose 121 H 118 H 121 H 03/18/21 03/18/21 03/18/21 11:35 11:58 12:28 Glucose POC Glucose 123 H 113 H 126 H 03/18/21 03/18/21 13:16 14:08 Glucose POC Glucose 126 H 119 H OUTPATIENT ANTIDIABETIC REGIMEN: * Insulin pump settings taken from last admission note - Medtronic insulin pump * Basal: 1786-0721 = 0.45 units/hr + 9428-0674 = 0.625 units/hr + 3254-3001 = 0.5 units/hr (12.3 units/day) * Sensitivity Factor: 55 * Carb Ratio: 12 ASSESSMENT: * 80 year old female, DM1 on insulin pump. Admitted with DKA and started on insulin infusion. Anion gap closed this AM, however insulin drip still running at very high rates (up to ~24 units/hr at one point). * BSGs much further improving today, insulin drip paused late morning - Fluids adjusted per DKA protocol. Did verify with RN that insulin pump not attached at all. Insulin drip now off for a few hours now and blood sugars stable. Last rate before insulin drip was held was ~10.7 units/hr * Anticipate blood sugars to start to rise, especially once diet resumed * Plan to give home dose of basal insulin - 12 units x 1 now. Per discussion with RN, do not feel like patient candidate for insulin pump as she is still confused. Will plan on basal/bolus insulin for now PLAN FOR INPATIENT GLYCEMIC CONTROL: * Hold outpatient oral diabetes medications * Basal insulin * Lantus - 12 units x 1 now, will reevaluate in AM * Bolus insulin * NovoLog per scale Q4 hr checks * Goal Range: Low 110 mg/dL - High 150 mg/dL * Correction Factor: 40 mg/dL/unit * Nutritional / Prandial insulin per carb ratio of 1 unit per 13 grams CHO consumed PLAN FOR DISCHARGE: * TBD
[2021-03-18] MEDS ORDERED: CEFEPIME 2,000 MG in SYRINGE 0 ML IV SCH (18:00)
[2021-03-18] MEDS ORDERED: AZITHROMYCIN 250 MG in DEXTROSE 5% 250 ML IV SCH (19:00)
--- NOTE | 2021-03-18 22:18 | Hospitalist Progress Note ---
Date of Service March 18, 2021 Assessment & Plan (1) DKA (diabetic ketoacidosis): Plan: Colleen is a 80 yo female with a PMHx of DM1 on insulin pump, anemia, breast cancer on chemo, GERD, hypothyroid, diastolic CHF, HTN brought into the ED via EMS with confusion, cough, and fatigue. 1) DKA -likely due to not using insulin pump and pneumonia -treated with insulin drip and IVF. -anion gap closed. -Insulin bridged to long acting. -restarted diet -replace electrolytes as needed -hold insulin pump -pharm consulted -will transfer to medical. 2) Pneumonia with acute respiratory failure with hypoxia -discharged from [facility] on 03/13 from the ER with pneumonia -presented to ED with O2 sat in 70s; 90s with 2L oxygen -WBC normal -Chest XR: small pleural effusion with bibasilar consolidation -hold cefdinir and doxycycline -Rocephin x1 in ED -started azithromax and cefepime in ED, cont. as does have a h/o Pseudomonas infection -blood cx pending 3) SETH -Cr 1.56, likely prerenal sec to dehydration -cont. fluids -hold lasix -trend BMP 4) GERD -cont. protonix 5) Diastolic CHF -hold lasix 6) CAD -cont. metoprolol, aspirin 7) hypothyroid-last TSH 11.6 in 01/2021 -cont. levothyroxine -check TSH in AM 8)metabolic encephalopathy likely from problem 1, DVT ppx: Heparin 5000 SQ BID Code Status: conditional: DNR only Dispo: will transfer to medical (2) Pneumonia: (3) Acute hyperkalemia: (4) Hypothyroidism: (5) Vaginal prolapse: (6) Diastolic CHF: (7) Breast cancer: (8) GERD (gastroesophageal reflux disease): Admission and Anticipated Discharge Date Admission Date: March 17, 2021 Subjective Patient appears confused. Poor historian. No new complaints. Review of Systems Review of Systems: Unobtainable due to cognitive status Physical Exam Physical Exam: Gen: awake and alert and oriented to person and place, NAD HEENT: [anicteric sclerae, EOMI, dry mucous membranes CV: RRR no mgr nl S1S2 Pulm: [Positive rhonchi bilaterally, no wheezes Abd: +BS soft NT ND no masses or hernias Ext: No edema, 2+ DP pulses Skin: No rashes, warm/dry Neuro: Can move all extremities Results & Data Results & Data ([facility]) Vital Signs (Past 12 Hours) Vital Signs Temp Pulse Resp BP Pulse Ox Pulse Ox 03/18/21 20:10 36.3 C L 83 24 134/64 95 03/18/21 16:18 96 03/18/21 16:00 36.9 C 79 18 158/96 H 96 03/18/21 12:00 36.9 C 68 18 100/49 L 95 PG Care Time/CCT Total # of Minutes Spent Total Time Spent with Patient: Total time spent is greater than 50% in coordination of care (as documented) at patient's floor/unit and/or counseling patient: Coding Level of Care Code 87259 Subseq Hosp Care Lvl 3 Diagnoses DKA (diabetic ketoacidosis) E10.10 Diabetes mellitus complication detail: without coma Diabetes mellitus type: type 1 Pneumonia J18.9 Laterality: left Lung location: lower lobe of lung Pneumonia type: due to unspecified organism Acute hyperkalemia E87.5 Hypothyroidism E03.9 Vaginal prolapse N81.10 Diastolic CHF I50.30 Breast cancer C50.919 GERD (gastroesophageal reflux disease) K21.9 (1) DKA (diabetic ketoacidosis) Diabetes mellitus complication detail: without coma Diabetes mellitus type: type 1 Qualified Code(s): E10.10 - Type 1 diabetes mellitus with ketoacidosis without coma (2) Pneumonia Laterality: left Lung location: lower lobe of lung Pneumonia type: due to unspecified organism Qualified Code(s): J18.9 - Pneumonia, unspecified organism
[2021-03-19] MEDS: INSULIN ASPART 100 UNITS/ML 3 ML PEN SC SCH ×6 (00:05→23:34)
[2021-03-19] MEDS: LEVOTHYROXINE SODIUM 100 MCG TABLET PO SCH (05:29)
[2021-03-19 06:42] LABS: Hematocrit (blood only) 29.2 % (37-47); Hemoglobin 9.6 g/dL (12.0-16.0); Mean Corpuscular Hemoglobin 26.7 pg (25-34); Mean Corpuscular Hgb Conc 32.9 g/dL (32-36); Mean Corpuscular Volume 81.3 fL (80-100); Mean Platelet Volume 9.9 fL (7.4-10.4); Platelet Count 159 K/uL (130-400); RDW Coefficient of Variation 16.7 % (11.5-14.5); RDW Standard Deviation 49.2 fL (36.4-46.3); Red Blood Count 3.59 M/uL (4.2-5.4); White Blood Count 12.94 K/uL (4.8-10.8)
[2021-03-19 07:17] LABS: BUN Creatinine Ratio 30.2 (10-20); Calcium 8.8 mg/dl (8.5-10.1); Creatinine Clr Calc Pharmacy 31.9 ml/min; Est GFR (African American) 45.3 ml/min; Est GFR (Non-African American) 39.1 ml/min; Potassium 4.5 mmol/L (3.5-5.1)
[2021-03-19] MEDS ORDERED: INSULIN GLARGINE SOLOSTAR 100 UNITS/ML 3 ML PEN SC ONE (07:30)
[2021-03-19] MEDS: D5NSS + 20MEQ KCL 20 MEQ/1,000 ML BAG IV SCH (07:56)
[2021-03-19] MEDS: METOPROLOL SUCC 25MG EXT REL TAB PO SCH (07:56)
[2021-03-19] MEDS: HEPARIN SOD 5,000 UNIT/0.5 ML VIAL SQ SCH ×2 (07:57→20:58)
[2021-03-19] MEDS: ASPIRIN 81 MG ECTAB PO SCH (07:57)
[2021-03-19] MEDS: PANTOprazole 40 MG TAB PO SCH (07:57)
--- NOTE | 2021-03-19 09:17 | Pharmacy Report ---
Pharmacy Glycemic Short Note 2 - Date of Service March 19, 2021 - Glycemic Short BSG Results (Last 24 hours): 03/18/21 03/18/21 03/18/21 09:11 10:15 10:35 Glucose 105 H POC Glucose 172 H 133 H 03/18/21 03/18/21 03/18/21 10:35 10:52 11:10 Glucose POC Glucose 121 H 118 H 121 H 03/18/21 03/18/21 03/18/21 11:35 11:58 12:28 Glucose POC Glucose 123 H 113 H 126 H 03/18/21 03/18/21 03/18/21 13:16 14:08 15:43 Glucose POC Glucose 126 H 119 H 140 H 03/18/21 03/18/21 03/19/21 18:15 20:18 00:02 Glucose POC Glucose 170 H 251 H 196 H 03/19/21 03/19/21 03/19/21 04:14 06:27 08:11 Glucose 202 H POC Glucose 205 H 168 H OUTPATIENT ANTIDIABETIC REGIMEN: Novolog via [employer] 530 insulin pump: Basal: 6220-6116 0.45 units/hr 9087-9644 0.625 units/hr 6209-1858 0.5 units/hr 9331-6095 0.5 units/hr 5203-2002 0.5 units/hr Total: 12.3 units Bolus: ICR: 12 SF: 55 BG Target: 140-150 TDD = 12-16 units/day (usually ~21-26 units/day) ASSESSMENT: 03/19 * Patient transitioned to basal bolus insulin yesterday, fasting blood sugar above goal today, increase basal slightly and tighten CF * Patient more oriented today, labs improved, still on D5NS+20K @ 100cc/hr, eating some, but not too much per RYAN Shepherd * Patient on Cefepime + Azithromycin for pneumonia * Patient does not have insulin pump supplies with her, continue basal bolus while inpatient and titrate to goal BSG 03/18 * 80 year old female, DM1 on insulin pump. Admitted with DKA and started on insulin infusion. Anion gap closed this AM, however insulin drip still running at very high rates (up to ~24 units/hr at one point). * BSGs much further improving today, insulin drip paused late morning - Fluids adjusted per DKA protocol. Did verify with RN that insulin pump not attached at all. Insulin drip now off for a few hours now and blood sugars stable. Last rate before insulin drip was held was ~10.7 units/hr * Anticipate blood sugars to start to rise, especially once diet resumed * Plan to give home dose of basal insulin - 12 units x 1 now. Per discussion with RN, do not feel like patient candidate for insulin pump as she is still c onfused. Will plan on basal/bolus insulin for now PLAN FOR INPATIENT GLYCEMIC CONTROL: * Hold outpatient insulin pump * Basal insulin * Lantus 14 units SQ daily * Bolus insulin * NovoLog per scale ACHS or Q6hrs while NPO * Goal Range: Low 110 mg/dL - High 150 mg/dL * Correction Factor: 30 mg/dL/unit * Nutritional / Prandial insulin per carb ratio of 1 unit per 13 grams CHO consumed PLAN FOR DISCHARGE: * A1c 10.8% d/t non-compliance, pt did not have insulin pump attached when admitted in DKA, and only gave bolus insulin from pump 3 times in last 3 weeks per insulin pump. * Endocrine appt scheduled for 03/26.
[2021-03-19] MEDS: CEFEPIME 2,000 MG in SYRINGE 0 ML IV SCH ×2 (11:35→20:58)
[2021-03-19] MEDS ORDERED: ALUMINUM/MAGNESIUM SUSP 18 ML, LIDOCAINE VISCOUS 2% SOLN 6 ML, BARCODE IDENTIFIER 1 EA PO ONE (13:51)
--- NOTE | 2021-03-19 13:54 | Hospitalist Progress Note ---
Date of Service March 19, 2021 Assessment & Plan (1) DKA (diabetic ketoacidosis): Plan: This patient is an 80-year-old female with a history of type 1 diabetes mellit us, hypothyroidism, chronic diastolic CHF, GERD, CAD, breast cancer, and DVT no longer on Xarelto, who presents to the ER with lethargy and confusion in the setting of being recently treated as an outpatient for community-acquired pneumonia. It seems that her insulin pump was dislodged but it is unclear when this occurred. Patient was found to have a blood sugar in the 700s, and anion gap of 17 on her chemistry, pH low at 7.3, acute kidney injury, and was quite lethargic. She was also found to be hypoxic in the 70s on room air and was placed on oxygen. DKA etiology likely faulty insulin pump as well as ongoing PNA -received aggressive IV fluid hydration and insulin gtt, AG has since closed and glucose under control -transitioned off insulin gtt to basal bolus insulin -restarted diet but not eating a lot -dc IVFs today -dc Nasima (2) Acute respiratory failure with hypoxia: Plan: secondary to encephalopathy and PNA now resolved, off O2 albuterol prn treating PNA (3) Acute metabolic encephalopathy: Plan: secondary to DKA, PNA, now resolved get OOB to chair and PT/OT, remove Muñoz treat PNA (4) Bacteremia: Plan: with 1/2 sets with GPC in clusters and GPRs, likely contaminant repeat BCxs continue Cefepime (5) Pneumonia: Plan: Pneumonia with acute respiratory failure with hypoxia -discharged from [facility] on 03/13 from the ER with pneumonia on omnicef and doxy -presented to ED with O2 sat in 70s; 90s with 2L oxygen -WBC normal but now increased again-unclear reason -Chest XR: small pleural effusion with bibasilar consolidation -hold cefdinir and doxycycline from home -continue azithromax and cefepime as does have a h/o Pseudomonas infection -blood cx + as above for GPC, GPRs (6) SETH (acute kidney injury): Plan: -Cr 1.56, likely prerenal sec to dehydration, now improved -continue to hold lasix -trend BMP -dc IVFs (7) Acute hyperkalemia: Plan: resolved, 2/2 DKA (8) Hypothyroidism: Plan: last TSH 11.6 in 01/2021 and now up to 13 -cont. levothyroxine and increase to 112 mcg f/u TSH in 4-6 weeks (9) Diastolic CHF: Plan: hold lasix dc IVFs (10) Breast cancer: Plan: ongoing treatment (11) GERD (gastroesophageal reflux disease): Plan: continue PPI add Pepcid and GI cocktail for possible doxy-induced esophagitis (12) Anemia: Plan: hgb 9,microcytic check iron studies follow CBC no obvious bleeding Plan: DVT proph-has a h/o DVT last yea judith Xarelto but Xarelto stopped summer 2020 for bleeding issues post-op from hip repair SQ heparin Dispo-continued stay, consult PT/OT, get OOB Admission and Anticipated Discharge Date Admission Date: March 17, 2021 Subjective Pt feeling better, does not recall the events that brought her in 2 days ago or from yesterday and so we reviewed that. SHe is still coughing but denies SOB. Has a pain in the middle of her chest after eating especially at nighttime x 3 days. Was taking po doxy prior to admission.Otherwise, has not been out of bed since admission. No BM. Is eating small amounts as per nursing staff Review of Systems Review of Systems: All systems reviewed & are unremarkable except as noted in HPI & below Physical Exam Constitutional: WD/WN, vitals as above Eyes: + anicteric sclerae ENMT: external ear and nose normal, oropharynx normal Neck: trachea midline, no thyromegaly Respiratory: normal respiratory effort and + cough Auscultation: + rhonchi (right lower) and + wheezes (faint exp wheeze) Cardiovascular: RRR, no murmur, no edema Chest (Breasts): Chest: normal inspection of chest Gastrointestinal (Abdomen): normal bowel sounds, soft, nontender, no hepatosplenomegaly Musculoskeletal: Extremities: extremities normal to inspection; no cyanosis and no clubbing Skin: no rashes, warm and dry with edema left forearm think skin, multiple ecchymoses arms Neurologic: moves all extremities and awake; no focal motor deficits Psychiatric: A+Ox3, euthymic affect Lymphatic: no lymphedema Results & Data Results & Data ([facility]) Vital Signs (Past 12 Hours) Vital Signs Temp Pulse Resp BP Pulse Ox 03/19/21 07:00 36.6 C 76 16 135/70 94 Laboratory Results 03/19/21 06:27 03/19/21 06:27 PG Care Time/CCT Total # of Minutes Spent Total Time Spent with Patient: Total time spent is greater than 50% in coordination of care (as documented) at patient's floor/unit and/or counseling patient: Coding Level of Care Code 20493 Subseq Hosp Care Lvl 3 Diagnoses DKA (diabetic ketoacidosis) E10.10 Diabetes mellitus complication detail: without coma Diabetes mellitus type: type 1 Pneumonia J18.9 Laterality: left Lung location: lower lobe of lung Pneumonia type: due to unspecified organism Acute hyperkalemia E87.5 Hypothyroidism E03.9 Diastolic CHF I50.30 Breast cancer C50.919 GERD (gastroesophageal reflux disease) K21.9 SETH (acute kidney injury) N17.9 Acute metabolic encephalopathy G93.41 Anemia D64.9 Acute respiratory failure with hypoxia J96.01 Bacteremia R78.81 (1) DKA (diabetic ketoacidosis) Diabetes mellitus complication detail: without coma Diabetes mellitus type: type 1 Qualified Code(s): E10.10 - Type 1 diabetes mellitus with ketoacidosis w ithout coma (2) Pneumonia Laterality: left Lung location: lower lobe of lung Pneumonia type: due to unspecified organism Qualified Code(s): J18.9 - Pneumonia, unspecified organism
[2021-03-19] MEDS ORDERED: Nursing to Pharmacy Communication SCH (14:15)
[2021-03-19] MEDS: CARBOHYDRATES FOR HYPOGLYCEMIA PO PRN ×2 (20:31→20:53)
[2021-03-19] MEDS: FAMOTIDINE 20 MG TAB PO SCH (20:58)
[2021-03-20] MEDS: INSULIN ASPART 100 UNITS/ML 3 ML PEN SC SCH ×6 (00:28→21:16)
[2021-03-20] MEDS: CARBOHYDRATES FOR HYPOGLYCEMIA PO PRN (04:22)
[2021-03-20] MEDS ORDERED: D5W AND NSS 1,000 ML IV SCH (05:00)
[2021-03-20] MEDS: LEVOTHYROXINE SODIUM 112 MCG TABLET PO SCH (06:22)
[2021-03-20] MEDS: ASPIRIN 81 MG ECTAB PO SCH (08:03)
[2021-03-20] MEDS: METOPROLOL SUCC 25MG EXT REL TAB PO SCH (08:03)
[2021-03-20] MEDS: PANTOprazole 40 MG TAB PO SCH (08:04)
[2021-03-20] MEDS: HEPARIN SOD 5,000 UNIT/0.5 ML VIAL SQ SCH ×2 (08:04→21:16)
[2021-03-20] MEDS: CEFEPIME 2,000 MG in SYRINGE 0 ML IV SCH (08:06)
[2021-03-20] MEDS ORDERED: AZITHROMYCIN 250 MG TAB PO SCH (09:00)
[2021-03-20 09:46] LABS: Basophils # (auto) 0.01 K/uL (0-0.2); Basophils % (auto) 0.2 %; Eosinophils % (auto) 3.1 %; Hematocrit (blood only) 36.1 % (37-47); Hemoglobin 11.7 g/dL (12.0-16.0); Immature Granulocytes # (auto) 0.02 K/uL (0.00-0.02); Immature Granulocytes % (auto) 0.3 %; Lymphocytes # (auto) 1.65 K/uL (1.2-3.4); Lymphocytes % (auto) 25.8 %; Mean Corpuscular Hemoglobin 26.6 pg (25-34); Mean Corpuscular Hgb Conc 32.4 g/dL (32-36); Mean Platelet Volume 11.2 fL (7.4-10.4); Monocytes # (auto) 0.63 K/uL (0.11-0.59); Monocytes % (auto) 9.9 %; Neutrophils # (auto) 3.88 K/uL (1.4-6.5); Neutrophils % (auto) 60.7 %; Platelet Count 230 K/uL (130-400); RDW Coefficient of Variation 17.2 % (11.5-14.5); RDW Standard Deviation 51.2 fL (36.4-46.3); White Blood Count 6.39 K/uL (4.8-10.8)
[2021-03-20 10:24] LABS: BUN Creatinine Ratio 28.1 (10-20); Calcium 9.3 mg/dl (8.5-10.1); Creatinine Clr Calc Pharmacy 39.2 ml/min; Est GFR (African American) 58.1 ml/min; Est GFR (Non-African American) 50.1 ml/min; Potassium 4.6 mmol/L (3.5-5.1)
[2021-03-20] MEDS ORDERED: INSULIN GLARGINE SOLOSTAR 100 UNITS/ML 3 ML PEN SC SCH ×2 (11:00)
--- NOTE | 2021-03-20 11:04 | Pharmacy Report ---
Pharmacy Glycemic Short Note 2 - Date of Service March 20, 2021 - Glycemic Short BSG Results (Last 24 hours): 03/19/21 03/19/21 03/19/21 11:49 17:04 20:26 Glucose POC Glucose 178 H 81 55 L* 03/19/21 03/19/21 03/19/21 20:27 20:45 21:09 Glucose POC Glucose 50 L* 61 L* 96 03/20/21 03/20/21 03/20/21 00:16 04:15 04:19 Glucose POC Glucose 79 64 L* 62 L* 03/20/21 03/20/21 03/20/21 04:38 05:04 07:53 Glucose POC Glucose 69 L* 78 157 H 03/20/21 09:27 Glucose 257 H POC Glucose OUTPATIENT ANTIDIABETIC REGIMEN: Novolog via [employer] 530 insulin pump: Basal: 2438-9963 0.45 units/hr 0890-4113 0.625 units/hr 6675-2333 0.5 units/hr 1812-5840 0.5 units/hr 3873-3620 0.5 units/hr Total: 12.3 units Bolus: ICR: 12 SF: 55 BG Target: 140-150 TDD = 12-16 units/day (usually ~21-26 units/day) ASSESSMENT: 03/20 * Patient received total of 21 units of insulin yesterday, of which 14 units were basal * BSGs trending down last evening, as PO intake poorer. Patient had been on dextrose fluids and after they were stopped yesterday afternoon blood sugars trended down quickly * Plan to scale back on basal as fasting BSG also low - pump settings per notes is closer to basal of 12 units. Some dextrose fluids started this AM for low BSG, but stopped when blood sugars trended back up * No more dextrose fluids currently - Plan to trial 11 units daily of basal for now as PO intake still very poor 03/19 * Patient transitioned to basal bolus insulin yesterday, fasting blood sugar above goal today, increase basal slightly and tighten CF * Patient more oriented today, labs improved, still on D5NS+20K @ 100cc/hr, eating some, but not too much per RYAN Shepherd * Patient on Cefepime + Azithromycin for pneumonia * Patient does not have insulin pump supplies with her, continue basal bolus while inpatient and titrate to goal BSG 03/18 * 80 year old female, DM1 on insulin pump. Admitted with DKA and started on insulin infusion. Anion gap closed this AM, however insulin drip still running at very high rates (up to ~24 units/hr at one point). * BSGs much further improving today, insulin drip paused late morning - Fluids adjusted per DKA protocol. Did verify with RN that insulin pump not attached at all. Insulin drip now off for a few hours now and blood sugars stable. Last rate before insulin drip was held was ~10.7 units/hr * Anticipate blood sugars to start to rise, especially once diet resumed * Plan to give home dose of basal insulin - 12 units x 1 now. Per discussion with RN, do not feel like patient candidate for insulin pump as she is still confused. Will plan on basal/bolus insulin for now PLAN FOR INPATIENT GLYCEMIC CONTROL: * Hold outpatient insulin pump * Basal insulin - decrease * Lantus 11 units daily * Bolus insulin * NovoLog per scale ACHS or Q6hrs while NPO * Goal Range: Low 110 mg/dL - High 150 mg/dL * Correction Factor: 40 mg/dL/unit * Nutritional / Prandial insulin per carb ratio of 1 unit per 15 grams CHO consumed PLAN FOR DISCHARGE: * A1c 10.8% d/t non-compliance, pt did not have insulin pump attached when admitted in DKA, and only gave bolus insulin from pump 3 times in last 3 weeks per insulin pump. No supplies for pump here. Reasonable to continue basal/bolus SQ insulin on discharge until followup with Endo as PO intake very poor right now. * Endocrine appt scheduled for 03/26.
--- NOTE | 2021-03-20 16:10 | Hospitalist Progress Note ---
Date of Service March 20, 2021 Assessment & Plan (1) DKA (diabetic ketoacidosis): Plan: This patient is an 80-year-old female with a history of type 1 diabetes mellitus, hypothyroidism, chronic diastolic CHF, GERD, CAD, breast cancer, and DVT no longer on Xarelto, who presents to the ER with lethargy and confusion in the setting of being recently treated as an outpatient for community-acquired pneumonia. It seems that her insulin pump was dislodged but it is unclear when this occurred. Patient was found to have a blood sugar in the 700s, and anion gap of 17 on her chemistry, pH low at 7.3, acute kidney injury, and was quite lethargic. She was also found to be hypoxic in the 70s on room air and was placed on oxygen. DKA etiology likely faulty insulin pump as well as ongoing PNA -received aggressive IV fluid hydration and insulin gtt, AG has since closed and glucose under control She has been transitioned to basal and bolus insulin and transitioned off the insulin drip She was actually hypoglycemic on the morning of 03/20 -Appreciate pharmacy management of insulin -Plan to transition to her insulin pump tomorrow-her daughter is to bring the supplies today -Appreciate diabetic nurse education (2) Acute respiratory failure with hypoxia: Plan: secondary to encephalopathy and PNA Still wheezing now resolved, off O2 Continue albuterol prn treating PNA (3) Acute metabolic encephalopathy: Plan: secondary to DKA, PNA, now resolved Continue to get OOB to chair and PT/OT treat PNA (4) Bacteremia: Plan: with 1/2 sets with micrococcus and corynebacterium-this is a likely contaminant repeat BCxs remain no growth to date (5) Pneumonia: Plan: Pneumonia with acute respiratory failure with hypoxia -discharged from [facility] ER on 03/13 with pneumonia on omnicef and doxy -presented to ED with O2 sat in 70s; 90s with 2L oxygen -Leukocytosis resolved -Chest XR: small pleural effusion with bibasilar consolidation -hold cefdinir and doxycycline from home -continue azithromax and cefepime as does have a h/o Pseudomonas infection-we will complete 3 more days of antibiotics but switch to levofloxacin for tomorrow -blood cx with contaminant as above, repeat blood cultures no growth to date -Continues with some wheezing-continue albuterol (6) SETH (acute kidney injury): Plan: -Cr 1.56, likely prerenal sec to dehydration, now resolved -Okay to restart home lasix -trend BMP Have since discontinued IV fluids (7) Acute hyperkalemia: Plan: resolved, 2/2 DKA and acute kidney injury (8) Hypothyroidism: Plan: last TSH 11.6 in 01/2021 and now up to 13 -cont. levothyroxine and increase to 112 mcg f/u TSH in 4-6 weeks (9) Diastolic CHF: Plan: Restart home Lasix (10) Breast cancer: Plan: ongoing treatment (11) GERD (gastroesophageal reflux disease): Plan: continue PPI Added Pepcid and GI cocktail for possible doxy-induced esophagitis and symptoms are resolved now (12) Anemia: Plan: hgb 11,microcytic check iron studies in the morning follow CBC no obvious bleeding Plan: DVT proph-has a h/o DVT last year on Xarelto but Xarelto stopped summer 2020 for bleeding issues post-op from hip repair SQ heparin Dispo-continued stay, consult PT/OT appreciated-now recommending home with home health. Plan for discharge to home with home health tomorrow after insulin pump replaced Admission and Anticipated Discharge Date Admission Date: March 17, 2021 Anticipated date of discharge: 03/21/21 Subjective Patient feeling better today, less cough but is still somewhat productive. Walked up and down the halls and felt stronger with physical therapy. She had one loose stool today. Eating some but not a lot. Just does not have a good appetite. Daughter is at the bedside and plans to bring her insulin pump in later this evening. She feels using albuterol with the spacer is helping her wheezing. Review of Systems Review of Systems: All systems reviewed & are unremarkable except as noted in HPI & below Physical Exam Constitutional: WD/WN, vitals as above Eyes: + anicteric sclerae Neck: trachea midline, no thyromegaly Respiratory: normal respiratory effort; no cough Auscultation: + rhonchi (right lower) and + wheezes (faint exp wheeze bilateral); no crackles Cardiovascular: RRR, no murmur, no edema Chest (Breasts): Chest: normal inspection of chest Gastrointestinal (Abdomen): normal bowel sounds, soft, nontender, no hepatosplenomegaly Musculoskeletal: Extremities: extremities normal to inspection; no cyanosis and no clubbing Skin: no rashes, warm and dry Neurologic: moves all extremities and awake; no focal motor deficits Psychiatric: A+Ox3, euthymic affect Lymphatic: no lymphedema Results & Data Results & Data ([facility]) Vital Signs (Past 12 Hours) Vital Signs Temp Pulse Resp BP Pulse Ox 03/20/21 15:07 36.4 C L 81 16 178/78 H 94 03/20/21 08:13 36.4 C L 65 16 158/84 H 91 Laboratory Results 03/20/21 03/20/21 03/20/21 Range/Units 12:06 09:27 09:27 WBC 6.39 (4.8-10.8) K/uL RBC 4.40 (4.2-5.4) M/uL Hgb 11.7 L (12.0-16.0) g/dL Hct 36.1 L (37-47) % MCV 82.0 (80-100) fL MCH 26.6 (25-34) pg MCHC 32.4 (32-36) g/dL RDW Std Deviation 51.2 H (36.4-46.3) fL RDW Coeff of Mikayla 17.2 H (11.5-14.5) % Plt Count 230 (130-400) K/uL MPV 11.2 H (7.4-10.4) fL Immature Gran % (Auto) 0.3 % Neut % (Auto) 60.7 % Lymph % (Auto) 25.8 % Sumter % (Auto) 9.9 % Eos % (Auto) 3.1 % Baso % (Auto) 0.2 % Neut # (Auto) 3.88 (1.4-6.5) K/uL Lymph # (Auto) 1.65 (1.2-3.4) K/uL Sumter # (Auto) 0.63 H (0.11-0.59) K/uL Eos # (Auto) 0.20 (0-0.5) K/uL Baso # (Auto) 0.01 (0-0.2) K/uL Immature Gran # (Auto) 0.02 (0.00-0.02) K/uL Sodium 134 L (136-145) mmol/L Potassium 4.6 (3.5-5.1) mmol/L Chloride 108 H (98-107) mmol/L Carbon Dioxide 22 (21-32) mmol/L Anion Gap 4.0 (3-11) BUN 30 H (7-18) mg/dl Creatinine 1.05 (0.6-1.2) mg/dl Est Cr Clr Drug Dosing 39.2 ml/min Est GFR ( Amer) 58.1 ml/min Est GFR (Non-Af Amer) 50.1 ml/min BUN/Creatinine Ratio 28.1 H (10-20) Glucose 257 H (70-99) mg/dl POC Glucose 230 H (70-99) mg/dl Calcium 9.3 (8.5-10.1) mg/dl 03/20/21 03/20/21 03/20/21 Range/Units 07:53 05:04 04:38 WBC (4.8-10.8) K/uL RBC (4.2-5.4) M/uL Hgb (12.0-16.0) g/dL Hct (37-47) % MCV (80-100) fL MCH (25-34) pg MCHC (32-36) g/dL RDW Std Deviation (36.4-46.3) fL RDW Coeff of Mikayla (11.5-14.5) % Plt Count (130-400) K/uL MPV (7.4-10.4) fL Immature Gran % (Auto) % Neut % (Auto) % Lymph % (Auto) % Sumter % (Auto) % Eos % (Auto) % Baso % (Auto) % Neut # (Auto) (1.4-6.5) K/uL Lymph # (Auto) (1.2-3.4) K/uL Sumter # (Auto) (0.11-0.59) K/uL Eos # (Auto) (0-0.5) K/uL Baso # (Auto) (0-0.2) K/uL Immature Gran # (Auto) (0.00-0.02) K/uL Sodium (136-145) mmol/L Potassium (3.5-5.1) mmol/L Chloride (98-107) mmol/L Carbon Dioxide (21-32) mmol/L Anion Gap (3-11) BUN (7-18) mg/dl Creatinine (0.6-1.2) mg/dl Est Cr Clr Drug Dosing ml/min Est GFR ( Amer) ml/min Est GFR (Non-Af Amer) ml/min BUN/Creatinine Ratio (10-20) Glucose (70-99) mg/dl POC Glucose 157 H 78 69 L* (70-99) mg/dl Calcium (8.5-10.1) mg/dl 03/20/21 03/20/21 03/20/21 Range/Units 04:19 04:15 00:16 WBC (4.8-10.8) K/uL RBC (4.2-5.4) M/uL Hgb (12.0-16.0) g/dL Hct (37-47) % MCV (80-100) fL MCH (25-34) pg MCHC (32-36) g/dL RDW Std Deviation (36.4-46.3) fL RDW Coeff of Mikayla (11.5-14.5) % Plt Count (130-400) K/uL MPV (7.4-10.4) fL Immature Gran % (Auto) % Neut % (Auto) % Lymph % (Auto) % Sumter % (Auto) % Eos % (Auto) % Baso % (Auto) % Neut # (Auto) (1.4-6.5) K/uL Lymph # (Auto) (1.2-3.4) K/uL Sumter # (Auto) (0.11-0.59) K/uL Eos # (Auto) (0-0.5) K/uL Baso # (Auto) (0-0.2) K/uL Immature Gran # (Auto) (0.00-0.02) K/uL Sodium (136-145) mmol/L Potassium (3.5-5.1) mmol/L Chloride (98-107) mmol/L Carbon Dioxide (21-32) mmol/L Anion Gap (3-11) BUN (7-18) mg/dl Creatinine (0.6-1.2) mg/dl Est Cr Clr Drug Dosing ml/min Est GFR ( Amer) ml/min Est GFR (Non-Af Amer) ml/min BUN/Creatinine Ratio (10-20) Glucose (70-99) mg/dl POC Glucose 62 L* 64 L* 79 (70-99) mg/dl Calcium (8.5-10.1) mg/dl 03/19/21 03/19/21 03/19/21 Range/Units 21:09 20:45 20:27 WBC (4.8-10.8) K/uL RBC (4.2-5.4) M/uL Hgb (12.0-16.0) g/dL Hct (37-47) % MCV (80-100) fL MCH (25-34) pg MCHC (32-36) g/dL RDW Std Deviation (36.4-46.3) fL RDW Coeff of Mikayla (11.5-14.5) % Plt Count (130-400) K/uL MPV (7.4-10.4) fL Immature Gran % (Auto) % Neut % (Auto) % Lymph % (Auto) % Sumter % (Auto) % Eos % (Auto) % Baso % (Auto) % Neut # (Auto) (1.4-6.5) K/uL Lymph # (Auto) (1.2-3.4) K/uL Sumter # (Auto) (0.11-0.59) K/uL Eos # (Auto) (0-0.5) K/uL Baso # (Auto) (0-0.2) K/uL Immature Gran # (Auto) (0.00-0.02) K/uL Sodium (136-145) mmol/L Potassium (3.5-5.1) mmol/L Chloride (98-107) mmol/L Carbon Dioxide (21-32) mmol/L Anion Gap (3-11) BUN (7-18) mg/dl Creatinine (0.6-1.2) mg/dl Est Cr Clr Drug Dosing ml/min Est GFR ( Amer) ml/min Est GFR (Non-Af Amer) ml/min BUN/Creatinine Ratio (10-20) Glucose (70-99) mg/dl POC Glucose 96 61 L* 50 L* (70-99) mg/dl Calcium (8.5-10.1) mg/dl 03/19/21 03/19/21 Range/Units 20:26 17:04 WBC (4.8-10.8) K/uL RBC (4.2-5.4) M/uL Hgb (12.0-16.0) g/dL Hct (37-47) % MCV (80-100) fL MCH (25-34) pg MCHC (32-36) g/dL RDW Std Deviation (36.4-46.3) fL RDW Coeff of Mkiayla (11.5-14.5) % Plt Count (130-400) K/uL MPV (7.4-10.4) fL Immature Gran % (Auto) % Neut % (Auto) % Lymph % (Auto) % Sumter % (Auto) % Eos % (Auto) % Baso % (Auto) % Neut # (Auto) (1.4-6.5) K/uL Lymph # (Auto) (1.2-3.4) K/uL Sumter # (Auto) (0.11-0.59) K/uL Eos # (Auto) (0-0.5) K/uL Baso # (Auto) (0-0.2) K/uL Immature Gran # (Auto) (0.00-0.02) K/uL Sodium (136-145) mmol/L Potassium (3.5-5.1) mmol/L Chloride (98-107) mmol/L Carbon Dioxide (21-32) mmol/L Anion Gap (3-11) BUN (7-18) mg/dl Creatinine (0.6-1.2) mg/dl Est Cr Clr Drug Dosing ml/min Est GFR ( Amer) ml/min Est GFR (Non-Af Amer) ml/min BUN/Creatinine Ratio (10-20) Glucose (70-99) mg/dl POC Glucose 55 L* 81 (70-99) mg/dl Calcium (8.5-10.1) mg/dl PG Care Time/CCT Total # of Minutes Spent Total Time Spent with Patient: Total time spent is greater than 50% in coordination of care (as documented) at patient's floor/unit and/or counseling patient: Coding Level of Care Code 77637 Subseq Hosp Care Lvl 3 Diagnoses DKA (diabetic ketoacidosis) E10.10 Diabetes mellitus complication detail: without coma Diabetes mellitus type: type 1 Acute respiratory failure with hypoxia J96.01 Acute metabolic encephalopathy G93.41 Bacteremia R78.81 Pneumonia J18.9 Laterality: left Lung location: lower lobe of lung Pneumonia type: due to unspecified organism SETH (acute kidney injury) N17.9 Acute hyperkalemia E87.5 Hypothyroidism E03.9 Diastolic CHF I50.30 Breast cancer C50.919 GERD (gastroesophageal reflux disease) K21.9 Anemia D64.9 (1) DKA (diabetic ketoacidosis) Diabetes mellitus complication detail: without coma Diabetes mellitus type: type 1 Qualified Code(s): E10.10 - Type 1 diabetes mellitus with ketoacidosis without coma (2) Pneumonia Laterality: left Lung location: lower lobe of lung Pneumonia type: due to unspecified organism Qualified Code(s): J18.9 - Pneumonia, unspecified organism
[2021-03-20] MEDS ORDERED: FUROSEMIDE 20 MG TAB PO PRN (16:45)
[2021-03-20] MEDS: FAMOTIDINE 20 MG TAB PO SCH (21:16)
[2021-03-21] MEDS ORDERED: INSULIN ASPART 100 UNITS/ML 3 ML PEN SC SCH
[2021-03-21] MEDS ORDERED: HEPARIN 100 UNIT/ML 5ML FLUSH FLUSH PRN (04:45)
[2021-03-21] MEDS: LEVOTHYROXINE SODIUM 112 MCG TABLET PO SCH (06:29)
[2021-03-21] MEDS: HEPARIN SOD 5,000 UNIT/0.5 ML VIAL SQ SCH (07:32)
[2021-03-21] MEDS: METOPROLOL SUCC 25MG EXT REL TAB PO SCH (07:32)
[2021-03-21] MEDS: ASPIRIN 81 MG ECTAB PO SCH (07:32)
[2021-03-21] MEDS: PANTOprazole 40 MG TAB PO SCH (07:32)
[2021-03-21] MEDS: CARBOHYDRATES FOR HYPOGLYCEMIA PO PRN (07:56)
[2021-03-21] MEDS: INSULIN ASPART 100 UNITS/ML 3 ML PEN SC SCH ×3 (08:07→17:45)
[2021-03-21 09:26] LABS: BUN Creatinine Ratio 25.1 (10-20); Calcium 8.7 mg/dl (8.5-10.1); Creatinine Clr Calc Pharmacy 43.4 ml/min; Est GFR (African American) 65.6 ml/min; Est GFR (Non-African American) 56.6 ml/min; Potassium 4.1 mmol/L (3.5-5.1)
[2021-03-21 09:30] LABS: Ferritin 177.2 ng/ml (8-388)
[2021-03-21] MEDS ORDERED: levoFLOXacin 750 MG TAB PO SCH (11:00)
--- NOTE | 2021-03-21 15:10 | Pharmacy Report ---
Pharmacy Glycemic Short Note 2 - Date of Service March 21, 2021 - Glycemic Short BSG Results (Last 24 hours): 03/20/21 03/20/21 03/21/21 17:09 21:13 00:11 Glucose POC Glucose 199 H 194 H 145 H 03/21/21 03/21/21 03/21/21 07:51 07:53 08:10 Glucose POC Glucose 51 L* 64 L* 68 L* 03/21/21 03/21/21 03/21/21 08:21 08:40 11:56 Glucose 119 H POC Glucose 77 115 H Met with patient today at her bedside. We reviewed bolusing from her pump for meals, what to do for hypoglycemia & hyperglycemia, and changing her pump site/tubing. She was able to answer all of my questions - but it just took her a little bit to think it over. I was confident in her abilities but feel much better knowing that she will have a family member around. Aleshia JOHAN gave her detailed information on changing her pump. Pt has a follow up appointment with elie Mckeonor 03/26/21. OK to discharge from a glycemic pharmacy standpoint.
--- NOTE | 2021-03-21 19:57 | Discharge Summary ---
Date of Service March 21, 2021 Admission HPI Per Admitting Provider Colleen is a 80 yo female with a PMHx of DM1 on insulin pump, anemia, breast cancer on chemo, GERD, hypothyroid, diastolic CHF, HTN brought into the ED via EMS with confusion, cough, and fatigue. History obtained via son due to patient's confusion. She was just discharged from [facility] ER 4 days ago for pneumonia treated with cefdinir and doxycycline. Her son has been visiting Colleen at her home since discharge. Through yesterday, Colleen seemed her normal self, however, today she was confused and constantly fatigued, in and out of sleep. She has had an associated cough secondary to her pneumonia. He noticed t hat her insulin pump was not connected which could have been as far back as . EMS was contacted and her blood sugars were extremely high. Principal Diagnosis DKA Discharge Exam In general she is awake and alert pleasant no distress. HEENT normocephalic atraumatic mucous membranes moist. Breathing unlabored no accessory muscle use good effort. Skin shows no rashes no pallor or icterus. Neuro without focal deficits. Mental status intact. Discharge Data Allergies Allergy/AdvReac Type Severity Reaction Status Date / Time lisinopril AdvReac Intermediate ELEVATES Verified 03/17/21 16:47 POTASSIUM LEVELS losartan AdvReac Intermediate ELEVATES Verified 03/17/21 16:47 POTASSIUM LEVELS. Consultations 03/17/21 18:05 ED Decision to Admit Stat Ordered Studies 03/17/21 16:28 CT head/brain wo con Stat Hospital Course (1) DKA (diabetic ketoacidosis): This patient is an 80-year-old female with a history of type 1 diabetes mellitus, hypothyroidism, chronic diastolic CHF, GERD, CAD, breast cancer, and DVT no longer on Xarelto, who presents to the ER with lethargy and confusion in the setting of being recently treated as an outpatient for community-acquired pneumonia. It seems that her insulin pump was dislodged but it is unclear when this occurred. Patient was found to have a blood sugar in the 700s, and anion gap of 17 on her chemistry, pH low at 7.3, acute kidney injury, and was quite lethargic. She was also found to be hypoxic in the 70s on room air and was placed on oxygen. DKA etiology likely faulty insulin pump as well as ongoing PNA -Improved, pump resumedsugars stable. Educated. Stable for home. (2) Acute respiratory failure with hypoxia: secondary to encephalopathy and PNA Improvedfinish out course of antibiotics (3) Acute metabolic encephalopathy: secondary to DKA, PNA, now resolved (4) Bacteremia: with 1/2 sets with micrococcus and corynebacterium-this is a likely contaminant repeat BCxs remain no growth to datetherefore to be clear this was a false positive blood culture not bacteremia. (5) Pneumonia: Improvedfinish course of antibiotics. Stable for home. (6) SETH (acute kidney injury): Stable for outpatient follow-up. Was likely related to DKA (7) Acute hyperkalemia: resolved, 2/2 DKA and acute kidney injury (8) Hypothyroidism: last TSH 11.6 in 01/2021 and now up to 13 -cont. levothyroxine and increase to 112 mcg f/u TSH in 4-6 weeks (9) Diastolic CHF: Home on home Lasix, outpatient follow-up (10) Breast cancer: ongoing treatment (11) GERD (gastroesophageal reflux disease): continue PPI (12) Anemia: Periodic CBC as an outpatient DVT proph-has a h/o DVT last year on Xarelto but Xarelto stopped summer 2020 for bleeding issues post-op from hip repair SQ heparin utilized during stay Dispo-stable for home with home health Total Time Total Time Spent Total Time Spent (In Minutes): Less than 30 minutes Discharge Plan Discharge Items Patient Disposition: Home - Home Health Services Reason For Visit: DKA, PNA, HYPOXIA Discharge Diagnosis: DKA resolved, pneumonia improving Activity: Resume your previous activity Non-emergency contact: Primary Care Provider Call non-emergency contact if: you have any medication questions and your symptoms worsen Follow-up/Referrals: Salvador Kimble III, MD [Primary Care Provider] - Diet: Carb Count or DM1 Addtl Attending Provider Instructions: DKA -This has resolved. -You are back on your regular insulin pump, and things appear to be working appropriately. -It is safe to get you home. If you run into any trouble with your sugar, definitely call your PCP for further directions and assistance, but this is unlikely to be the case. Pneumonia -This fortunately appears to be getting better quite nicely, at this point, you simply need 2 more days of antibioticsLevaquin ([id number]/08/2020, and [id number]/23/2021)and then you will have completed a course of treatment -Follow-up with your primary care office for recheck in a week or 2 as it relates to this Hypothyroidism -Incidentally, it looks like your Synthroid dose needed to be raisedwe have increased it from 100 mcg to 112 mcg, a fairly small changeyou should have a repeat TSH in about a month. Pending Studies at Discharge: No Stand-Alone Forms: My [facility] [employer], Smoking Cessation Medications and DC Order Prescriptions: New levofloxacin 750 mg Tablet 750 mg PO DAILY@1100 Qty: 2 RF: 0 levothyroxine [Synthroid] 112 mcg Tablet 112 mcg PO DAILYBB Qty: 30 RF: 0 Continued insulin aspart U-100 [Novolog U-100 Insulin aspart] 100 unit/mL solution 45 unit continuous subcutaneous infusion DAILY 90 Days Qty: 40 RF: 3 Lantus U-100 Insulin 100 unit/mL solution 14 unit subcut QPM Qty: 10 RF: 0 omeprazole 20 mg tablet,delayed release (DR/EC) 20 mg PO DAILY RF: 0 cholecalciferol (vitamin D3) 125 mcg (5,000 unit) capsule 5,000 unit PO QAM RF: 0 aspirin 81 mg tablet,delayed release (DR/EC) 81 mg PO DAILY RF: 0 calcium carbonate-vitamin D3 600 mg(1,500mg) -800 unit tablet 1 tab PO DAILY RF: 0 Lacto.acidophilus-Bif.animalis 31 billion cell capsule 1 cap PO DAILY RF: 0 (DME) Dexcom G6 Sensor Device See Rx Instructions .ROUTE .MEDSUPPLY Qty: 3 RF: 0 (DME) Dexcom G6 Transmitter Device See Rx Instructions .ROUTE .MEDSUPPLY Qty: 1 RF: 0 (DME) MiniMed 530G Insulin Pump Misc See Rx Instructions .ROUTE .MEDSUPPLY Qty: 1 RF: 0 (DME) Contour Next Test Strips Strip See Rx Instructions .ROUTE .MEDSUPPLY Qty: 100 RF: 3 furosemide [Lasix] 20 mg tablet 20 mg PO 3XWK Qty: 90 RF: 3 acetaminophen [Tylenol] 325 mg Capsule 650 mg PO QID PRN (Reason: Pain) RF: 0 albuterol sulfate 90 mcg/actuation HFA aerosol inhaler 3 inh inhalation Q6H Qty: 18 RF: 2 benzonatate 200 mg capsule 200 mg PO TID PRN (Reason: cough) Qty: 30 RF: 2 metoprolol succinate 25 mg tablet extended release 24 hr 25 mg PO DAILY RF: 0 Discontinued levothyroxine 100 mcg tablet 100 mcg PO QAM Qty: 90 RF: 3 cefdinir 300 mg capsule 300 mg PO BID 10 Days Qty: 20 RF: 0 doxycycline hyclate 100 mg capsule 100 mg PO BID 10 Days Qty: 20 RF: 0 Discharge Orders: Discharge Order (Routine); Ordered 03/21/21 Ordered By: Ignacio Dos Santos Admission Data Admit Date/Time: 03/17/21 23:17 Attending Provider: Ignacio Dos Santos Admit Provider: Rhiannon Jones Primary Care Provider: Salvador Kimble III Other Providers: Rhiannon Jones Other Interventions: Discharge Summary Assessment (RN) Last Done: 03/21/21 14:52 Coding Level of Care Code D/C DAY MANAGEMENT <30 MINS Diagnoses DKA (diabetic ketoacidosis) E10.10 Diabetes mellitus complication detail: without coma Diabetes mellitus type: type 1 Acute respiratory failure with hypoxia J96.01 Acute metabolic encephalopathy G93.41 Bacteremia R78.81 Pneumonia J18.9 Laterality: left Lung location: lower lobe of lung Pneumonia type: due to unspecified organism SETH (acute kidney injury) N17.9 Acute hyperkalemia E87.5 Hypothyroidism E03.9 Diastolic CHF I50.30 Breast cancer C50.919 GERD (gastroesophageal reflux disease) K21.9 Anemia D64.9
== END 2021-03-21 17:46 | disposition home health service (06) | DRG 919 ==
LOC: ED 16:10 → SUATTDRO 23:17 → EDINP 23:17 → 2S 03-18 20:37 → 3E 03-19 00:42

== ENCOUNTER 2022-02-25 17:48 | Inpatient (IN) ==
[2022-02-25] MEDS ORDERED: TXA 10% Non-IV Routes 100 MG/ML VIAL TOP ONE (19:47)
--- NOTE | 2022-02-25 20:04 | Emergency Department Note ---
History of Present Illness General Chief complaint: Rectal Bleed Stated complaint: HEMMORAGE SURGERY LAST TUESDAY, RECTAL BLEEDING Time Seen by Provider: 02/25/22 19:34 Source: patient Mode of arrival: ambulatory Limitations: no limitations History of Present Illness Provider complaint: Rectal bleeding Maximum Pain Intensity: 5 This is an 81-year-old female presents emergency room due to concern for rectal bleeding. Patient had hemorrhoid surgery performed on her she last week. She states she had held her Xarelto last week for the surgeries and just restarted on Tuesday. He states she was having some slight intermittent bleeding, however today bleeding was much worse, including passage of dime size clots. Patient also is concerned about needing additional help at home as she has had some increased weakness and difficulty walking that has been evolving even prior to the surgeries. Patient denies any significant bleeding from anywhere else. She denies any syncopal events. Denies fevers or chills. Patient does still take chemotherapy due to prior history of breast cancer. Home Medications Medication Instructions Recorded Confirmed Type cholecalciferol (vitamin D3) 125 5,000 unit PO QAM 12/25/19 02/25/22 History mcg (5,000 unit) capsule omeprazole 20 mg tablet,delayed 20 mg PO QAM 03/27/20 02/25/22 History release blood-glucose sensor (Dexcom G6 #3 ea 09/22/20 12/28/21 History Sensor device) blood-glucose transmitter (Dexcom #1 ea 09/22/20 12/28/21 History G6 Transmitter device) subcutaneous insulin pump (MiniMed #1 ea 09/22/20 12/28/21 History 530G Insulin Pump) acetaminophen 325 mg capsule 650 mg PO QID PRN Pain 01/09/21 02/25/22 History (Tylenol) metoprolol succinate 25 mg 25 mg PO QPM 03/17/21 02/25/22 History tablet,extended release 24 hr Lactobacillus 1 cap PO BID 03/26/21 02/25/22 History acidophilus-Bifidobac.animalis 31 billion cell capsule blood sugar diagnostic (Contour #400 ea 04/23/21 12/28/21 Rx Next Test Strips) Wheeled Walker #1 ea 05/14/21 12/28/21 Rx Novolog U-100 Insulin aspart 100 30 unit (0.3 mL) continuous 07/21/21 02/25/22 Rx unit/mL subcutaneous solution subcutaneous infusion DAILY 90 (insulin aspart U-100) days #30 mL furosemide 20 mg tablet (Lasix) 40 mg PO .COMPLEX 09/29/21 02/25/22 History insulin syringe-needle U-100 0.3 #100 ea 10/14/21 12/28/21 Rx mL 29 gauge x 1/2" (BD Insulin Syringe) insulin glargine 100 unit/mL 14 unit subcut QPM PRN .PUMP 10/15/21 02/25/22 History subcutaneous solution (Lantus FAILURE U-100 Insulin) levothyroxine 125 mcg tablet 125 mcg PO DAILY #90 tabs 02/08/22 02/25/22 Rx magnesium oxide 400 mg PO BID 02/25/22 02/25/22 History oxycodone 5 mg tablet 5 mg PO Q4 PRN Pain 02/25/22 02/25/22 History Allergies Allergy/AdvReac Type Severity Reaction Status Date / Time lisinopril AdvReac Intermediate Elevates Verified 02/25/22 22:59 potassium losartan AdvReac Intermediate Elevates Verified 02/25/22 22:59 potassium Past Med/Surg History Medical History Anasarca Secondary to nutritional deficiency and possibly component of diastolic HF per 05/2021 cardio records > diuretics adjusted and GUS wraps for legs recommended Anemia Hgb 9s per chart review Deep vein thrombosis (DVT) of right lower extremity Non-occlusive DVT (right peroneal vein)- 08/2019 while on chemo Reason for Xarelto Diabetes mellitus type 1 + insulin pump [place] [facility] [place] GERD (gastroesophageal reflux disease) Diet controlled Shane's thyroiditis History of blood transfusion 02/2020 Hx of gastric ulcer HX: breast cancer Rt (2019) > s/p surgery/chemo Mets to lung > targeted txs Hyperlipidemia Hypertension Hypothyroidism Insulin pump in place IPMN (intraductal papillary mucinous neoplasm) 3 seen on EUS (10 mm, 13 mm, 8 mm) with FNA performed showing mucinous cyst and no malignancy Follows with Dr. Lozada (MRI abd rec in one year) Lung cancer Mets from breast ca- currently undergoing- Enhertu targeted tx for lung nodules q3 weeks Mixed conductive and sensorineural hearing loss of right ear with restricted hearing of left ear Multiple pulmonary nodules Under surveillance by CTS Tooth abscess 5 teeth possible abscesses- plan for upcoming extraction Urinary incontinence UTI (urinary tract infection) Current symptoms (no testing done)- rx'd cipro BID (to start 11/10/21) Surgical History History of anesthesia reaction Sister > slow to wake History of breast biopsy Right History of carpal tunnel release R/L History of cataract surgery B/L History of cholecystectomy History of colonoscopy History of ERCP History of esophagogastroduodenoscopy (EGD) Large hiatal hernia, non-bleeding duodenal ulcer (done for iron def anemia evaluation) History of hip surgery Left s/p femur fracture History of tonsillectomy and adenoidectomy History of tooth extraction History of vascular access device APort--left side of chest S/P mastectomy Right breast, with sentinel [place] node [place], [place] [facility] [place] right S/P thyroid biopsy benign Family History Sister Pancreatic cancer Breast cancer Cancer Father Lung cancer Cancer Brother Diabetes Brother Diabetes Parkinson disease Grandfather (Maternal) Myocardial infarction Other No family history of adverse response to anesthesia No family history of bleeding disorder Denies family history of Ovarian cancer Prostate cancer Heart disease Colorectal cancer Hypertension Stroke Asthma Social History Smoking Status: Never smoker Second Hand Exposure: No; Do You Dip or Chew Tobacco: No; Tobacco Cessation Education Requested by Patient: No Hx Alcohol Use: No Hx Substance Use: No Preferred Language: Icelandic Communication Ability: Unable Visual Impairment: No Limitations Hearing Ability: Normal Speech/Language Therapist Required: No Beliefs That Will Affect Care: None marital status: / Current Living Situation: Alone Current Living Situation Comment: son lena has been staying w/ her since last february current occupational status: retired Other Information That Helps Us Care for You: No Feels Safe at Home: Yes Safety Concerns: Feels Safe At This Time caffeine: Yes Dental Care, Regularly: Yes Physical Activity Frequency: Does not Exercise Seatbelt Use: always Sunscreen Use: Yes Assistive Devices: Walker Assistive Devices Comment: insulin pump Review of Systems A total of 10 systems reviewed and were otherwise negative All systems reviewed & are unremarkable except as noted in HPI & below Physical Exam Vital Signs Vital Signs - 24 hr 02/25/22 17:56 02/25/22 20:00 02/25/22 20:30 Temperature 37.7 C H Temperature Source Temporal Artery Scan Pulse Rate 97 H 86 Pulse Rate from SpO2 Sensor 86 87 Respiratory Rate 20 19 Respiratory Effort / Characteristics Non-Labored Respiratory Depth Normal Blood Pressure 137/69 129/71 144/79 H Blood Pressure Mean 91 90 100 Pulse Oximetry 96 97 96 Oxygen Delivery Method Room Air Room Air Room Air Sepsis Recent Fever Within 48 Hours No Sepsis New/Unexplained Change in Mental Status N/A Sepsis Action Taken by Nursing No Action Required 02/25/22 21:00 02/25/22 22:30 Temperature Temperature Source Pulse Rate 86 82 Pulse Rate from SpO2 Sensor 86 83 Respiratory Rate 16 12 Respiratory Effort / Characteristics Respiratory Depth Blood Pressure 166/80 H 148/77 H Blood Pressure Mean 108 100 Pulse Oximetry 98 95 Oxygen Delivery Method Room Air Room Air Sepsis Recent Fever Within 48 Hours Sepsis New/Unexplained Change in Mental Status Sepsis Action Taken by Nursing GENERAL: alert, well appearing, well nourished, no distress, non-toxic EYE EXAM: normal conjunctiva, PERRL and EOM's grossly intact OROPHARYNX: no exudate, no erythema, lips, buccal mucosa, and tongue normal and mucous membranes are moist NECK: supple, no nuchal rigidity, no adenopathy, non-tender LUNGS: Clear to auscultation. Normal chest wall mechanics, no w/r/r HEART: no murmurs, S1 normal and S2 normal ABDOMEN: abdomen soft, non-tender, normo-active bowel sounds, no masses, no rebound or guarding. RECTAL: Obvious bleeding noted to incisional wound located at the 2 o'clock position superior to the anus, it does appear as though 1 suture had ruptured, patient states there was no longer any packing in place, no obvious bleeding from the anus itself BACK: Back is symmetrical on inspection and there is no deformity, no midline tenderness, no CVA tenderness. SKIN: no rashes and no bruising UPPER EXTREMITIES: upper extremities are grossly normal. FROM, nml pulses b/l. LOWER EXTREMITIES: No pitting edema. FROM, nml pulses b/l. NEURO EXAM: Normal sensorium, cranial nerves II-XII grossly intact, normal speech, no gross weakness of arms, no gross weakness of legs. Gross sensation intact. Course Course 2044: Patient still with slight oozing around the area although slowed compared to prior. 2107: Discussed with Dr. Guerra, colorectal surgery on-call for [facility]. Recommends holding the patient's Xarelto. No other orders or instructions at this time regarding the wounds and ongoing bleeding. They can see her in follow-up to discuss when to restart the Xarelto. 2134: Patient updated on discussion with colorectal surgery. Patient states she does have chronic anemia due to ongoing cancer treatment. Patient would like to pursue placement for inpatient rehab as she has felt since her surgery she is in slightly weaker than normal. I did asked case management to come speak with her. Administered Medications Acetaminophen (Acetaminophen 325 Mg Tab) 650 mg PO Q4H PRN PRN Reason: Pain or Fever Stop: 03/28/22 01:59 Last Admin: 02/27/22 21:00 Dose: 650 mg Documented By: Admin: 02/26/22 23:39 Dose: 650 mg Documented By: Admin: 02/26/22 04:54 Dose: 650 mg Documented By: KOJO Heparin Sodium (Porcine) (Heparin 100 Unit/Ml 5ml Flush) 5 ml FLUSH PRN PRN PRN Reason: Flush Stop: 03/28/22 07:18 Last Admin: 02/26/22 18:44 Dose: 5 ml Documented By: STORM Ceftriaxone Sodium 2,000 mg/ (Dextrose) 70 mls @ 140 mls/hr IV Q24H JODI Stop: 03/08/22 04:59 Last Infusion: 02/28/22 06:30 Dose: 0 mls/hr Documented By: Admin: 02/28/22 06:00 Dose: 140 mls/hr Documented By: Infusion: 02/27/22 04:48 Dose: 0 mls/hr Documented By: Admin: 02/27/22 04:18 Dose: 140 mls/hr Documented By: Infusion: 02/26/22 05:27 Dose: 0 mls/hr Documented By: Admin: 02/26/22 04:50 Dose: 140 mls/hr Documented By: KOJO Acetaminophen (Ofirmev) 1,000 mg in 100 mls @ 400 mls/hr IV Q8H PRN PRN Reason: Pain or fever Stop: 03/01/22 11:09 Last Infusion: 02/27/22 09:56 Dose: 0 mls/hr Documented By: Admin: 02/27/22 09:20 Dose: 400 mls/hr Documented By: Infusion: 02/26/22 21:04 Dose: 0 mls/hr Documented By: Admin: 02/26/22 20:49 Dose: 400 mls/hr Documented By: Infusion: 02/26/22 11:41 Dose: 0 mls/hr Documented By: Admin: 02/26/22 11:26 Dose: 400 mls/hr Documented By: ALEXX Pantoprazole Sodium 40 mg/ (Syringe) 10 mls @ 5 mls/min IV BID JODI Stop: 03/29/22 20:59 Last Admin: 02/28/22 08:32 Dose: 5 mls/min Documented By: [id number] Admin: 02/27/22 21:01 Dose: 5 mls/min Documented By: DERIAN Insulin Aspart (Insulin Aspart Per Unit) 0 units SC ACHS [facility]; Protocol Stop: 03/28/22 08:29 Last Admin: 02/28/22 08:31 Dose: 1 units Documented By: [id number] Co-signed By: ELYSSA Admin: 02/27/22 21:01 Dose: 2 units Documented By: DERIAN Co-signed By: IDRIS Admin: 02/27/22 16:10 Dose: Not Given Documented By: POPPY Insulin Glargine (Lantus Per Unit Charge) 6 units SQ QAM [facility]; Protocol Stop: 03/30/22 08:59 Last Admin: 02/28/22 08:31 Dose: 6 units Documented By: [id number] Co-signed By: ELYSSA Discontinued Medications Gelatin (Gelatin Sponge Sz 100) Confirm Administered Dose 1 each .ROUTE .STK-MED ONE Stop: 02/26/22 20:09 Last Admin: 02/26/22 21:42 Dose: 1 each Documented By: DERIAN Pantoprazole Sodium 40 mg/ (Syringe) 10 mls @ 5 mls/min IV DAILY@1100 JODI Stop: 03/28/22 10:59 Last Admin: 02/26/22 10:54 Dose: 5 mls/min Documented By: ALEXX Sodium Chloride (Nss 1000ml) 1,000 mls @ 80 mls/hr IV .[id number] JODI Stop: 03/28/22 01:59 Last Infusion: 02/26/22 11:14 Dose: 0 mls/hr Documented By: Admin: 02/26/22 03:21 Dose: 80 mls/hr Documented By: KOJO Albumin Human (Albumin 25% 100 Ml) 25 gm in 100 mls @ 50 mls/hr IV Q2H JODI Stop: 02/26/22 10:59 Last Infusion: 02/26/22 09:26 Dose: 0 mls/hr Documented By: [employer] Admin: 02/26/22 08:54 Dose: 50 mls/hr Documented By: Infusion: 02/26/22 08:53 Dose: 0 mls/hr Documented By: Admin: 02/26/22 07:34 Dose: 50 mls/hr Documented By: GABE Prothrombin Complex Concent ( (Human) 1,500 units/ Syringe) 60 mls @ 10 mls/min IV 0700 JODI; Protocol Stop: 02/26/22 07:30 Last Admin: 02/26/22 07:34 Dose: 10 mls/min Documented By: CA Pantoprazole Sodium 40 mg/ (Syringe) 10 mls @ 5 mls/min IV NOW ONE Stop: 02/26/22 11:31 Last Admin: 02/26/22 11:44 Dose: 5 mls/min Documented By: ALEXX Pantoprazole Sodium 40 mg/ (Dextrose) 100 mls @ 20 mls/hr IV Q5H JODI Stop: 03/28/22 11:44 Last Infusion: 02/28/22 07:02 Dose: 0 mg/hr, 0 mls/hr Documented By: [id number] Admin: 02/27/22 17:45 Dose: 8 mg/hr, 20 mls/hr Documented By: Infusion: 02/27/22 17:45 Dose: 8 mg/hr, 20 mls/hr Documented By: Admin: 02/27/22 13:39 Dose: 8 mg/hr, 20 mls/hr Documented By: Infusion: 02/27/22 13:39 Dose: 8 mg/hr, 20 mls/hr Documented By: Admin: 02/27/22 08:44 Dose: 8 mg/hr, 20 mls/hr Documented By: Infusion: 02/27/22 08:31 Dose: 8 mg/hr, 20 mls/hr Documented By: Admin: 02/27/22 03:31 Dose: 8 mg/hr, 20 mls/hr Documented By: Infusion: 02/27/22 02:42 Dose: 8 mg/hr, 20 mls/hr Documented By: Admin: 02/26/22 21:42 Dose: 8 mg/hr, 20 mls/hr Documented By: Infusion: 02/26/22 21:42 Dose: 8 mg/hr, 20 mls/hr Documented By: Admin: 02/26/22 17:11 Dose: 8 mg/hr, 20 mls/hr Documented By: Infusion: 02/26/22 16:52 Dose: 0 mg/hr, 0 mls/hr Documented By: Admin: 02/26/22 11:49 Dose: 8 mg/hr, 20 mls/hr Documented By: ALEXX Calcium Gluconate 2,000 mg/ (Dextrose) 70 mls @ 240 mls/hr IV NOW ONE Stop: 02/26/22 17:47 Last Infusion: 02/26/22 18:37 Dose: 0 mls/hr Documented By: Admin: 02/26/22 18:19 Dose: 240 mls/hr Documented By: POPPY Magnesium Sulfate/Dextrose (Magnesium Sulfate / D5w) 1 gm in 100 mls @ 50 mls/hr IV Q2H JODI Stop: 02/27/22 17:59 Last Infusion: 02/27/22 17:46 Dose: 0 mls/hr Documented By: Admin: 02/27/22 15:55 Dose: 50 mls/hr Documented By: Infusion: 02/27/22 15:55 Dose: 50 mls/hr Documented By: Admin: 02/27/22 14:15 Dose: 50 mls/hr Documented By: POPPY Insulin Aspart (Insulin Aspart Per Unit) 0 units SC ACHS JODI Stop: 03/28/22 07:29 Last Admin: 02/26/22 09:14 Dose: Not Given Documented By: ALEXX Insulin Aspart (Insulin Aspart Per Unit) 0 units SC Q6 JODI; Protocol Stop: 03/28/22 08:29 Last Admin: 02/27/22 12:19 Dose: Not Given Documented By: Admin: 02/27/22 06:07 Dose: Not Given Documented By: Admin: 02/26/22 23:38 Dose: Not Given Documented By: Admin: 02/26/22 18:01 Dose: Not Given Documented By: Admin: 02/26/22 13:30 Dose: 1 units Documented By: POPPY Co-signed By: MARTIN Admin: 02/26/22 09:14 Dose: Not Given Documented By: ALEXX Insulin Glargine (Lantus Per Unit Charge) 5 units SQ NOW STA; Protocol Stop: 02/26/22 12:24 Last Admin: 02/26/22 13:30 Dose: 5 units Documented By: POPPY Co-signed By: MARTIN Insulin Glargine (Lantus Per Unit Charge) 5 units SQ [facility]; Protocol Stop: 03/29/22 10:14 Last Admin: 02/27/22 12:19 Dose: 5 units Documented By: POPPY Co-signed By: ELYSSA Ioversol (Optiray 350 100ml) 90 ml IV ONCE ONE Stop: 02/26/22 12:31 Last Admin: 02/26/22 12:14 Dose: 90 ml Documented By: NORRIS Miscellaneous (Stat Iv) 1 each N/A NOW STA Stop: 02/26/22 17:04 Last Admin: 02/26/22 17:19 Dose: Not Given Documented By: POPPY Tranexamic Acid (Txa 10% Non-Iv Routes 100 Mg/Ml Vial) 1,000 mg TOP ONE ONE Stop: 02/25/22 19:48 Last Admin: 02/25/22 19:59 Dose: 1,000 mg Documented By: PILLO Medical Decision Making Differential Diagnosis Differential diagnosis includes etiologies such as diverticulosis, AVM, coagulopathy, colitis, inflammatory bowel disease, malignancy, Ruth-Ramos tear, esophagitis, peptic ulcer disease, variceal bleed, gastritis, epistaxis, fissure, hemorrhoids, as well as others were entertained. Medical Records Attestation: I reviewed the patient's medical records. Home Medications Current Medication List: was personally reviewed by me Laboratory Data Attestation: I reviewed the patient's lab results. Result diagrams: 02/28/22 04:10 02/28/22 04:10 Lab Results 02/25/22 02/25/22 02/25/22 Range/Units 20:21 23:03 23:03 WBC 8.61 (4.8-10.8) K/ul RBC 2.24 L (3.93-5.22) M/uL Hgb 7.2 L (12.0-16.0) g/dl POC Hgb 7.8 L (12.0-16.0) g/dl Hct 22.0 L (34.1-44.9) % POC Hct 23 L (37-47) % MCV 98.2 (80.0-100.0) fL MCH 32.1 (25.0-34.0) pg MCHC 32.7 (32.0-36.0) g/dL RDW Std Deviation 66.0 H (36.4-46.3) fL RDW Coeff of Mikayla 18.2 H (11.5-14.5) % Plt Count 205 (130-400) K/uL MPV 9.5 (9.4-12.3) fL Immature Gran % (Auto) 0.6 % Neut % (Auto) 51.0 % Lymph % (Auto) 29.3 % [place] % (Auto) 16.0 % Eos % (Auto) 2.9 % Baso % (Auto) 0.2 % Neut # (Auto) 4.39 (1.4-6.5) K/uL Lymph # (Auto) 2.52 (1.2-3.4) K/uL [place] # (Auto) 1.38 H (0.24-0.82) K/uL Eos # (Auto) 0.25 (0-0.50) K/uL Baso # (Auto) 0.02 (0-0.2) K/uL Immature Gran # (Auto) 0.05 H (0.00-0.02) K/uL RBC Morphology Unremarkable POC Sodium 134 L (135-144) mmol/L Sodium 133 L (136-145) mmol/L POC Potassium 5.1 H (3.3-5.0) mmol/L Potassium 5.1 (3.5-5.1) mmol/L POC Chloride 101 (101-112) mmol/L Chloride 105 (98-107) mmol/L Carbon Dioxide 26 (21-32) mmol/L POC Total CO2 23 L (24-31) mmol/L Anion Gap 2 L (3-11) POC Anion Gap 15.0 L (16-25) mmol/L POC BUN 25 H (7-18) mg/dl BUN 28 H (6-23) mg/dl Creatinine 1.35 H (0.6-1.2) mg/dl POC Creatinine 1.5 H (0.6-1.3) mg/dl Est Cr Clr Drug Dosing Not Reportable Est GFR ( Amer) 42.6 ml/min Est GFR (Non-Af Amer) 36.7 ml/min BUN/Creatinine Ratio 20.7 H (10-20) Glucose 136 H (70-99(Fasting)) mg/dl POC Glucose (other) 172 H (70-99) mg/dl Calcium 7.8 L (8.5-10.1) mg/dl POC Ioniz Calcium Susan 1.23 (1.12-1.32) mmol/l Total Bilirubin 0.8 (0.2-1.0) mg/dl AST 56 H (13-39) U/L ALT 39 (7-52) U/L Alkaline Phosphatase 211 H (34-104) U/L Total Protein 4.7 L (6.0-8.3) gm/dl Albumin 2.2 L (3.4-5.0) gm/dl Globulin 2.5 (2.5-4.0) gm/dl Albumin/Globulin Ratio 0.9 (0.9-2) Procalcitonin (0-0.5) ng/ml SARS-CoV-2, RNA, NAAT (NEGATIVE) Blood Type Antibody Screen Crossmatch 02/25/22 02/25/22 02/25/22 Range/Units 23:03 23:03 23:16 WBC (4.8-10.8) K/ul RBC (3.93-5.22) M/uL Hgb 7.2 L (12.0-16.0) g/dl POC Hgb (12.0-16.0) g/dl Hct 21.4 L (34.1-44.9) % POC Hct (37-47) % MCV (80.0-100.0) fL MCH (25.0-34.0) pg MCHC (32.0-36.0) g/dL RDW Std Deviation (36.4-46.3) fL RDW Coeff of Mikayla (11.5-14.5) % Plt Count (130-400) K/uL MPV (9.4-12.3) fL Immature Gran % (Auto) % Neut % (Auto) % Lymph % (Auto) % [place] % (Auto) % Eos % (Auto) % Baso % (Auto) % Neut # (Auto) (1.4-6.5) K/uL Lymph # (Auto) (1.2-3.4) K/uL [place] # (Auto) (0.24-0.82) K/uL Eos # (Auto) (0-0.50) K/uL Baso # (Auto) (0-0.2) K/uL Immature Gran # (Auto) (0.00-0.02) K/uL RBC Morphology POC Sodium (135-144) mmol/L Sodium (136-145) mmol/L POC Potassium (3.3-5.0) mmol/L Potassium (3.5-5.1) mmol/L POC Chloride (101-112) mmol/L Chloride (98-107) mmol/L Carbon Dioxide (21-32) mmol/L POC Total CO2 (24-31) mmol/L Anion Gap (3-11) POC Anion Gap (16-25) mmol/L POC BUN (7-18) mg/dl BUN (6-23) mg/dl Creatinine (0.6-1.2) mg/dl POC Creatinine (0.6-1.3) mg/dl Est Cr Clr Drug Dosing Est GFR ( Amer) ml/min Est GFR (Non-Af Amer) ml/min BUN/Creatinine Ratio (10-20) Glucose (70-99(Fasting)) mg/dl POC Glucose (other) (70-99) mg/dl Calcium (8.5-10.1) mg/dl POC Ioniz Calcium Susan (1.12-1.32) mmol/l Total Bilirubin (0.2-1.0) mg/dl AST (13-39) U/L ALT (7-52) U/L Alkaline Phosphatase (34-104) U/L Total Protein (6.0-8.3) gm/dl Albumin (3.4-5.0) gm/dl Globulin (2.5-4.0) gm/dl Albumin/Globulin Ratio (0.9-2) Procalcitonin 0.38 (0-0.5) ng/ml SARS-CoV-2, RNA, NAAT (NEGATIVE) Blood Type O Positive Antibody Screen NEGATIVE Crossmatch See Detail 02/25/22 Range/Units 23:25 WBC (4.8-10.8) K/ul RBC (3.93-5.22) M/uL Hgb (12.0-16.0) g/dl POC Hgb (12.0-16.0) g/dl Hct (34.1-44.9) % POC Hct (37-47) % MCV (80.0-100.0) fL MCH (25.0-34.0) pg MCHC (32.0-36.0) g/dL RDW Std Deviation (36.4-46.3) fL RDW Coeff of Mikayla (11.5-14.5) % Plt Count (130-400) K/uL MPV (9.4-12.3) fL Immature Gran % (Auto) % Neut % (Auto) % Lymph % (Auto) % [place] % (Auto) % Eos % (Auto) % Baso % (Auto) % Neut # (Auto) (1.4-6.5) K/uL Lymph # (Auto) (1.2-3.4) K/uL [place] # (Auto) (0.24-0.82) K/uL Eos # (Auto) (0-0.50) K/uL Baso # (Auto) (0-0.2) K/uL Immature Gran # (Auto) (0.00-0.02) K/uL RBC Morphology POC Sodium (135-144) mmol/L Sodium (136-145) mmol/L POC Potassium (3.3-5.0) mmol/L Potassium (3.5-5.1) mmol/L POC Chloride (101-112) mmol/L Chloride (98-107) mmol/L Carbon Dioxide (21-32) mmol/L POC Total CO2 (24-31) mmol/L Anion Gap (3-11) POC Anion Gap (16-25) mmol/L POC BUN (7-18) mg/dl BUN (6-23) mg/dl Creatinine (0.6-1.2) mg/dl POC Creatinine (0.6-1.3) mg/dl Est Cr Clr Drug Dosing Est GFR ( Amer) ml/min Est GFR (Non-Af Amer) ml/min BUN/Creatinine Ratio (10-20) Glucose (70-99(Fasting)) mg/dl POC Glucose (other) (70-99) mg/dl Calcium (8.5-10.1) mg/dl POC Ioniz Calcium Susan (1.12-1.32) mmol/l Total Bilirubin (0.2-1.0) mg/dl AST (13-39) U/L ALT (7-52) U/L Alkaline Phosphatase (34-104) U/L Total Protein (6.0-8.3) gm/dl Albumin (3.4-5.0) gm/dl Globulin (2.5-4.0) gm/dl Albumin/Globulin Ratio (0.9-2) Procalcitonin (0-0.5) ng/ml SARS-CoV-2, RNA, NAAT NEGATIVE (NEGATIVE) Blood Type Antibody Screen Crossmatch ECG Data Attestation: I personally reviewed and interpreted this ECG as follows: Indication: + weakness Rate (beats per minute): 87 Rhythm: + normal sinus ECG Intervals/blocks: + Normal QRS and + Normal QT ECG [place]: + Normal ECG ST segments: + Nonspecific ST abnormalities MDM Narrative An order was placed for continuous cardiac monitoring. The monitor shows a rate of _92__ with rhythm. This is an 81-year-old female presents due to concern for bleeding from recent hemorrhoid surgery. Patient noted to have active bleeding. TXA soaked gauze was placed around the area which did slow to an oozing for better inspection of the involved area and surgical sites. I did discuss the case with colorectal surgery on-call for [place] [facility] who advised no other specific treatment but to hold the patient's Xarelto. A [id number] BMP was checked on the patient noted to obtain an H&H which did appear slightly lower compared to her baseline anemia. Patient had denied any orthostatic symptoms or other systemic complaints citing she felt she needed to participate in inpatient rehab even prior to her hemorrhoid surgery as she did not feel she was quite as ambulatory as she would like. We discussed the recommendations of colorectal surgery, and I asked case management to discuss options for home aids or physical therapy versus inpatient therapy and she would like to pursue [facility]. Given patient requires hospitalization before placement there, case discussed with hospitalist for additional evaluation and management. Impression & Plan Rectal bleeding, Anemia, Chronic anticoagulation Discharge Plan Visit Data Chief Complaint: Rectal Bleed Stated Complaint: HEMMORAGE SURGERY LAST TUESDAY, RECTAL BLEEDING ED Provider: Carlee Llanos Discharge Problem: Rectal bleeding, Anemia, Chronic anticoagulation Patient Disposition: Admitted As Inpatient Discharge Instructions Interventions: ED Discharge Assessment Last Done: 02/26/22 02:20
[2022-02-25 20:37] LABS: iSTAT Creatinine 1.5 mg/dl (0.6-1.3); iSTAT Hemoglobin 7.8 g/dl (12.0-16.0); iSTAT Ionized Calcium 1.23 mmol/l (1.12-1.32); iSTAT Potassium 5.1 mmol/L (3.3-5.0)
[2022-02-25 23:26] LABS: Basophils # (auto) 0.02 K/uL (0-0.2); Basophils % (auto) 0.2 %; Eosinophils # (auto) 0.25 K/uL (0-0.50); Eosinophils % (auto) 2.9 %; Hemoglobin 7.2 g/dl (12.0-16.0); Immature Granulocytes # (auto) 0.05 K/uL (0.00-0.02); Immature Granulocytes % (auto) 0.6 %; Lymphocytes # (auto) 2.52 K/uL (1.2-3.4); Lymphocytes % (auto) 29.3 %; Mean Corpuscular Hemoglobin 32.1 pg (25.0-34.0); Mean Corpuscular Hgb Conc 32.7 g/dL (32.0-36.0); Mean Corpuscular Volume 98.2 fL (80.0-100.0); Mean Platelet Volume 9.5 fL (9.4-12.3); Monocytes # (auto) 1.38 K/uL (0.24-0.82); Neutrophils # (auto) 4.39 K/uL (1.4-6.5); Platelet Count 205 K/uL (130-400); RDW Coefficient of Variation 18.2 % (11.5-14.5); Red Blood Count 2.24 M/uL (3.93-5.22); White Blood Count 8.61 K/ul (4.8-10.8)
[2022-02-25 23:51] LABS: Alanine Aminotransferase 39 U/L (7-52); Albumin Globulin Ratio 0.9 (0.9-2); Albumin Level 2.2 gm/dl (3.4-5.0); Alkaline Phosphatase 211 U/L (34-104); Anion Gap 2 (3-11); Aspartate Aminotransferase 56 U/L (13-39); BUN Creatinine Ratio 20.7 (10-20); Bilirubin,Total 0.8 mg/dl (0.2-1.0); Blood Urea Nitrogen 28 mg/dl (6-23); Calcium 7.8 mg/dl (8.5-10.1); Carbon Dioxide 26 mmol/L (21-32); Chloride 105 mmol/L (98-107); Est GFR (African American) 42.6 ml/min; Est GFR (Non-African American) 36.7 ml/min; Globulin 2.5 gm/dl (2.5-4.0); Glucose 136 mg/dl (70-99(Fasting)); Potassium 5.1 mmol/L (3.5-5.1); Sodium 133 mmol/L (136-145); Total Protein 4.7 gm/dl (6.0-8.3)
[2022-02-25 23:56] LABS: RBC Morphology Unremarkable
[2022-02-26 00:31] LABS: Hematocrit (blood only) 21.4 % (34.1-44.9); Hemoglobin 7.2 g/dl (12.0-16.0)
--- NOTE | 2022-02-26 00:37 | History & Physical Report ---
Date of Service February 26, 2022 Assessment & Plan (1) Rectal bleeding: Plan: Rectal bleeding status post resumption of Xarelto after hemorrhoid surgery- Received tranexamic acid from the ED H&H every 6 hours Pantoprazole 40 mg IV daily Holding Xarelto (2) Anemia due to acute blood loss: Plan: Initial hemoglobin 7.2, with repeat 7.2 Type and screen added and performed Blood pressure and heart rate stable Repeat H&H as noted, and if drops further, consent has been obtained, and patient will be transfused (3) Type 1 diabetes: Plan: Holding insulin pump and Dexcom Placed on Accu-Cheks before meals and at bedtime/every 6 hours with SSI (4) CAD (coronary artery disease), [place] coronary artery: Plan: CAD/hypertension medications on hold due to relatively low blood pressure secondary to rectal bleeding (5) GERD (gastroesophageal reflux disease): Plan: Changing omeprazole p.o. to pantoprazole IV (6) Diastolic CHF: (7) Deep vein thrombosis (DVT) of right lower extremity: Plan: Xarelto on hold due to rectal bleeding (8) Insulin pump status: (9) Hypothyroidism: Plan: Continue levothyroxine 125 mcg daily (10) Breast cancer: Plan: Undergoing chemotherapy (11) IPMN (intraductal papillary mucinous neoplasm): History of Present Illness Chief Complaint: The patient presents to the emergency department with post hemorrhoid surgery rectal bleeding that began after resuming her Xarelto as directed 4 days ago, and then developed severe bleeding today, including dime size clots Primary Care Provider: Liz Pedraza MD The patient is an 81-year-old female with a past medical history including anasarca, uncontrolled diabetes mellitus type 1, secondary hyperparathyroidism, insulin pump status, diabetic peripheral neuropathy, abnormal SPEP, breast cancer, gastritis, pancreatitis, pulmonary nodules, hypothyroidism, DKA, CAD, diastolic CHF, gait abnormality, DVT of right lower extremity and IPMN. She underwent hemorrhoid surgery last week, and was taken off of her Xarelto before and for a few days after the surgery. She started back on the Xarelto as directed 4 days ago, and had some initially minimal rectal bleeding, but today, the day of admission, developed more significant rectal bleeding with dime size clots. In the emergency department, laboratories included hemoglobin of 7.2, with most recent otherwise being 9.2, and patient was referred for evaluation for admission. Allergies Allergy/AdvReac Type Severity Reaction Status Date / Time lisinopril AdvReac Intermediate Elevates Verified 02/25/22 22:59 potassium losartan AdvReac Intermediate Elevates Verified 02/25/22 22:59 potassium Home Medications Medication Instructions Recorded Confirmed Type cholecalciferol (vitamin D3) 125 5,000 unit PO QAM 12/25/19 02/25/22 History mcg (5,000 unit) capsule omeprazole 20 mg tablet,delayed 20 mg PO QAM 03/27/20 02/25/22 History release blood-glucose sensor ([employer] G6 #3 ea 09/22/20 12/28/21 History Sensor device) blood-glucose transmitter ([employer] #1 ea 09/22/20 12/28/21 History G6 Transmitter device) subcutaneous insulin pump ([employer] #1 ea 09/22/20 12/28/21 History 530G Insulin Pump) acetaminophen 325 mg capsule 650 mg PO QID PRN Pain 01/09/21 02/25/22 History (Tylenol) metoprolol succinate 25 mg 25 mg PO QPM 03/17/21 02/25/22 History tablet,extended release 24 hr Lactobacillus 1 cap PO BID 03/26/21 02/25/22 History acidophilus-Bifidobac.animalis 31 billion cell capsule blood sugar diagnostic ([employer] #400 ea 04/23/21 12/28/21 Rx Next Test Strips) Ninoska Walker #1 ea 05/14/21 12/28/21 Rx Novolog U-100 Insulin aspart 100 30 unit (0.3 mL) continuous 07/21/21 02/25/22 Rx unit/mL subcutaneous solution subcutaneous infusion DAILY 90 (insulin aspart U-100) days #30 mL furosemide 20 mg tablet (Lasix) 40 mg PO .COMPLEX 09/29/21 02/25/22 History insulin syringe-needle U-100 0.3 #100 ea 10/14/21 12/28/21 Rx mL 29 gauge x 1/2" (BD Insulin Syringe) insulin glargine 100 unit/mL 14 unit subcut QPM PRN .PUMP 10/15/21 02/25/22 History subcutaneous solution (Lantus FAILURE U-100 Insulin) levothyroxine 125 mcg tablet 125 mcg PO DAILY #90 tabs 02/08/22 02/25/22 Rx magnesium oxide 400 mg PO BID 02/25/22 02/25/22 History oxycodone 5 mg tablet 5 mg PO Q4 PRN Pain 02/25/22 02/25/22 History Past Med/Surg History Medical History Anasarca Secondary to nutritional deficiency and possibly component of diastolic HF per 05/2021 cardio records > diuretics adjusted and GUS wraps for legs recommended Anemia Hgb 9s per chart review Deep vein thrombosis (DVT) of right lower extremity Non-occlusive DVT (right peroneal vein)- 08/2019 while on chemo Reason for Xarelto Diabetes mellitus type 1 + insulin pump 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 Lozada (MRI abd rec in one year) Lung cancer Mets from breast ca- currently undergoing- Enhertu targeted tx for lung nodules q3 weeks Mixed conductive and sensorineural hearing loss of right ear with restricted hearing of left ear Multiple pulmonary nodules Under surveillance by CTS Tooth abscess 5 teeth possible abscesses- plan for upcoming extraction Urinary incontinence UTI (urinary tract infection) Current symptoms (no testing done)- rx'd cipro BID (to start 11/10/21) Surgical History History of anesthesia reaction Sister > slow to wake History of breast biopsy Right History of carpal tunnel release R/L History of cataract surgery B/L History of cholecystectomy History of colonoscopy History of ERCP History of esophagogastroduodenoscopy (EGD) Large hiatal hernia, non-bleeding duodenal ulcer (done for iron def anemia ev aluation) History of hip surgery Left s/p femur fracture History of tonsillectomy and adenoidectomy History of tooth extraction History of vascular access device APort--left side of chest S/P mastectomy Right breast, with sentinel lymph node biopsy, Dr. Preet Burdick, [facility] [place] S/P mastectomy right S/P thyroid biopsy benign Family History Sister Pancreatic cancer Breast cancer Cancer Father Lung cancer Cancer Brother Diabetes Brother Diabetes Parkinson disease Grandfather (Maternal) Myocardial infarction Other No family history of adverse response to anesthesia No family history of bleeding disorder Denies family history of Ovarian cancer Prostate cancer Heart disease Colorectal cancer Hypertension Stroke Asthma Social History Smoking Status: Never smoker Second Hand Exposure: No; Do You Dip or Chew Tobacco: No; Tobacco Cessation Education Requested by Patient: No Hx Alcohol Use: No Hx Substance Use: No Preferred Language: Russian Communication Ability: Effective Visual Impairment: No Limitations Hearing Ability: Normal Radiology Transcriptionist Required: No Beliefs That Will Affect Care: None marital status: / Current Living Situation: Alone Current Living Situation Comment: son lena has been staying w/ her since last february current occupational status: retired Other Information That Helps Us Care for You: No Feels Safe at Home: Yes Safety Concerns: Feels Safe At This Time caffeine: Yes Dental Care, Regularly: Yes Physical Activity Frequency: Does not Exercise Seatbelt Use: always Sunscreen Use: Yes Assistive Devices: Walker and Other Assistive Devices Comment: insulin pump Review of Systems Review of Systems: The patient denies chest pain, palpitations, cough, lower extremity swelling, sore throat, fevers, chills, sweats, nausea, vomiting, diarrhea , constipation, abdominal pain, blood in urine, dysuria, urinary frequency or urgency, lightheadedness, dizziness, headache, memory loss, loss of consciousness, rash, imbalance, focal or generalized weakness, numbness or tingling in arms or legs, generalized arthralgias or myalgias, back or neck pain, or night sweats. The review of systems is otherwise negative other than for that already noted above, and at least 10 systems have been reviewed. Physical Exam Physical Exam: The patient is awake, alert and oriented 3, well developed and well nourished, normocephalic and atraumatic, lying in bed and in no acute distress. HEENT--PERRL, EOMI, mucous membranes and oropharynx dry. Neck--supple. No JVD. No bruits. Thyroid normal, trachea midline, no adenopathy. Heart--normal S1 and S2. No murmurs, rubs or gallops. Lungs--clear bilaterally, no respiratory distress, no accessory muscle use. Abdomen--normal bowel sounds and soft. Nontender. Nondistended, no hernias or masses, no organomegaly. Extremities--no cyanosis or clubbing. No edema. Dermatologic--normal skin turgor, normal color, no abnormal lymph nodes, no rash. Neurologic--cranial nerves II through XII grossly intact. Rheumatologic--normal range of motion. Psychiatric--normal affect. Rectal exam-heme positive as noted in ED Results & Data Results & Data ([facility]) Vital Signs (Past 12 Hours) Vital Signs Temp Pulse Resp BP Pulse Ox O2 Del Method 02/25/22 22:30 82 12 148/77 H 95 Room Air 02/25/22 21:00 86 16 166/80 H 98 Room Air 02/25/22 20:30 144/79 H 96 Room Air 02/25/22 20:00 86 19 129/71 97 Room Air 02/25/22 17:56 37.7 C H 97 H 20 137/69 96 Room Air Laboratory Results Laboratory Results WBC 8.61 K/ul (4.8-10.8) 02/25/22 23:03 RBC 2.24 M/uL (3.93-5.22) L 02/25/22 23:03 Hgb 7.2 g/dl (12.0-16.0) L 02/25/22 23:16 POC Hgb 7.8 g/dl (12.0-16.0) L 02/25/22 20:21 Hct 21.4 % (34.1-44.9) L 02/25/22 23:16 POC Hct 23 % (37-47) L 02/25/22 20:21 MCV 98.2 fL (80.0-100.0) 02/25/22 23:03 MCH 32.1 pg (25.0-34.0) 02/25/22 23:03 MCHC 32.7 g/dL (32.0-36.0) 02/25/22 23:03 RDW Std Deviation 66.0 fL (36.4-46.3) H 02/25/22 23:03 RDW Coeff of Mikayla 18.2 % (11.5-14.5) H 02/25/22 23:03 Plt Count 205 K/uL (130-400) 02/25/22 23:03 MPV 9.5 fL (9.4-12.3) 02/25/22 23:03 Immature Gran % (Auto) 0.6 % 02/25/22 23:03 Neut % (Auto) 51.0 % 02/25/22 23:03 Lymph % (Auto) 29.3 % 02/25/22 23:03 [place] % (Auto) 16.0 % 02/25/22 23:03 Eos % (Auto) 2.9 % 02/25/22 23:03 Baso % (Auto) 0.2 % 02/25/22 23:03 Neut # (Auto) 4.39 K/uL (1.4-6.5) 02/25/22 23:03 Lymph # (Auto) 2.52 K/uL (1.2-3.4) 02/25/22 23:03 [place] # (Auto) 1.38 K/uL (0.24-0.82) H 02/25/22 23:03 Eos # (Auto) 0.25 K/uL (0-0.50) 02/25/22 23:03 Baso # (Auto) 0.02 K/uL (0-0.2) 02/25/22 23:03 Immature Gran # (Auto) 0.05 K/uL (0.00-0.02) H 02/25/22 23:03 RBC Morphology Unremarkable 02/25/22 23:03 POC Sodium 134 mmol/L (135-144) L 02/25/22 20:21 Sodium 133 mmol/L (136-145) L 02/25/22 23:03 POC Potassium 5.1 mmol/L (3.3-5.0) H 02/25/22 20: Potassium 5.1 mmol/L (3.5-5.1) 02/25/22 23:03 POC Chloride 101 mmol/L (101-112) 02/25/22 20:21 Chloride 105 mmol/L (98-107) 02/25/22 23:03 Carbon Dioxide 26 mmol/L (21-32) 02/25/22 23:03 POC Total CO2 23 mmol/L (24-31) L 02/25/22 20:21 Anion Gap 2 (3-11) L 02/25/22 23:03 POC Anion Gap 15.0 mmol/L (16-25) L 02/25/22 20:21 POC BUN 25 mg/dl (7-18) H 02/25/22 20:21 BUN 28 mg/dl (6-23) H 02/25/22 23:03 Creatinine 1.35 mg/dl (0.6-1.2) H 02/25/22 23:03 POC Creatinine 1.5 mg/dl (0.6-1.3) H 02/25/22 20: Est Cr Clr Drug Dosing Not Reportable 02/25/22 23:03 Est GFR ( Amer) 42.6 ml/min 02/25/22 23:03 Est GFR (Non-Af Amer) 36.7 ml/min 02/25/22 23:03 BUN/Creatinine Ratio 20.7 (10-20) H 02/25/22 23:03 Glucose 136 mg/dl (70-99(Fasting)) H 02/25/22 23:03 POC Glucose (other) 172 mg/dl (70-99) H 02/25/22 20: Calcium 7.8 mg/dl (8.5-10.1) L 02/25/22 23:03 POC Ioniz Calcium Susan 1.23 mmol/l (1.12-1.32) 02/25/22 20: Total Bilirubin 0.8 mg/dl (0.2-1.0) 02/25/22 23:03 AST 56 U/L (13-39) H 02/25/22 23:03 ALT 39 U/L (7-52) 02/25/22 23:03 Alkaline Phosphatase 211 U/L (34-104) H 02/25/22 23:03 Total Protein 4.7 gm/dl (6.0-8.3) L 02/25/22 23:03 Albumin 2.2 gm/dl (3.4-5.0) L 02/25/22 23:03 Globulin 2.5 gm/dl (2.5-4.0) 02/25/22 23:03 Albumin/Globulin Ratio 0.9 (0.9-2) 02/25/22 23:03 Procalcitonin 0.38 ng/ml (0-0.5) 02/25/22 23:03 SARS-CoV-2, RNA, NAAT NEGATIVE (NEGATIVE) 02/25/22 23:25 Blood Type O Positive 02/25/22 23:03 Antibody Screen NEGATIVE 02/25/22 23:03 Code Status & VTE Plan Code Status Full code VTE Prophylaxis Plan VTE Prophylaxis will be ordered: Yes
[2022-02-26] MEDS ORDERED: SODIUM CHLORIDE 0.9% 1000ML 1,000 ML IV SCH (02:00)
[2022-02-26] MEDS ORDERED: GLUCOSE 10 TAB/TUBE PO PRN (02:00)
[2022-02-26] MEDS ORDERED: GLUCOSE 40% GEL 15 GM TUBE PO PRN (02:00)
[2022-02-26] MEDS ORDERED: DEXTROSE 50% 50 ML SYRINGE IV PRN (02:00)
[2022-02-26] MEDS ORDERED: GLUCAGON FOR INJ 1 MG VIAL SQ PRN (02:00)
[2022-02-26] MEDS ORDERED: ONDANSETRON INJ 2 MG/ML 2 ML VIAL IV PRN (02:00)
[2022-02-26] MEDS ORDERED: CARBOHYDRATES FOR HYPOGLYCEMIA PO PRN (02:00)
--- NOTE | 2022-02-26 04:28 | Billing Data ---
Date of Service February 26, 2022 Coding Level of Care Code 10842 Initial Inpt Care Lvl 3
[2022-02-26] MEDS ORDERED: cefTRIAXone SODIUM 1,000 MG in DEXTROSE 5% 50 ML IV SCH (04:30)
[2022-02-26] MEDS: cefTRIAXone SODIUM 2,000 MG in DEXTROSE 5% 50 ML IV SCH (04:50)
[2022-02-26] MEDS: ACETAMINOPHEN 325 MG TAB PO PRN ×2 (04:54→23:39)
[2022-02-26] MEDS ORDERED: SODIUM CHLORIDE 0.9% 250 ML IV PRN ×4 (05:09→11:44)
[2022-02-26 06:24] LABS: Hematocrit (blood only) 16.3 % (34.1-44.9); Hemoglobin 5.5 g/dl (12.0-16.0)
[2022-02-26 06:30] LABS: Albumin Level 1.8 gm/dl (3.4-5.0); BUN Creatinine Ratio 20.4 (10-20); Calcium 7.3 mg/dl (8.5-10.1); Creatinine Clr Calc Pharmacy 31.9 ml/min; Est GFR (African American) 41.8 ml/min; Est GFR (Non-African American) 36.1 ml/min; Phosphorus 2.8 mg/dl (2.5-4.9); Potassium 5.2 mmol/L (3.5-5.1)
[2022-02-26] MEDS ORDERED: PROTHROMBIN COMP CONC- KCENTRA 1,500 UNITS in SYRINGE 0 ML IV STA (06:39)
[2022-02-26] MEDS ORDERED: PROTHROMBIN COMP CONC- KCENTRA 1,500 UNITS in SYRINGE 0 ML IV SCH (07:00)
[2022-02-26] MEDS ORDERED: PHARMACY GLYCEMIC MGMT CONSULT PRN (07:18)
[2022-02-26] MEDS ORDERED: INSULIN ASPART PER UNIT SC SCH (07:30)
[2022-02-26] MEDS: ALBUMIN 25% 100 mL 25 GM/100 ML VIAL IV SCH ×2 (07:34→08:54)
[2022-02-26 07:51] LABS: Fibrinogen 204 mg/dl (184-400); INR 1.3 (0.9-1.1); Partial Thromboplastin Ratio 1.3; Partial Thromboplastin Time 36.8 Seconds (21.0-31.0); Prothrombin Time 13.5 Seconds (9.0-12.0)
[2022-02-26 08:11] LABS: Estimated Average Glucose 203 mg/dl; Hemoglobin A1C 8.7 % (4.5-5.6)
[2022-02-26] MEDS ORDERED: Nursing to Pharmacy Communication SCH (08:15)
[2022-02-26] MEDS: INSULIN ASPART PER UNIT SC SCH ×4 (09:14→23:38)
--- NOTE | 2022-02-26 09:40 | Gastrointestinal Consultation ---
Date of Consultation February 26, 2022 Assessment & Plan (1) Anemia due to acute blood loss: (2) Rectal bleeding: Plan 81 y.o. female status post hemorrhoidectomy at [facility] admitted with bright red rectal bleeding upon resumption of Xarelto. -Recommend consideration of surgery evaluation. -Transfuse to maintain hemoglobin ~8. -Hold anticoagulation therapy. -Rest per primary team. Thank you for allowing us to participating in the care of this patient. If you have any questions or concerns, please do not hesitate to contact us. Supervising Physician Co-Signing Physician Notes Agree with SHIVA Lemons as above Abd: Soft, NT, ND, +BS Appreciate surgery input Continue current therapy and supportive care No role for endoscopic evaluation at present History of Present Illness Reason for Consultation: Rectal Bleeding Requesting Physician: Dr. Mar Attending Physician: Clarke Negron MD History of Present Illness Colleen Franco is a 81 y.o. female with a complex PMH with a history of DM type I, breast CA, pancreatitis, hypothyroidism, DKA, CAD, diastolic CHF, DVT, IPMN status post hemorrhoidectomy at [facility] last week. She resumed Xarelto 4 days ago and began developing bright red rectal bleeding yesterday. She reports that blood was filling her undergarments and dripping down her leg. She was also passing blood clots. Reports associated rectal pain and lower abdominal pain. Patient was slightly hypotensive and she is significantly anemic. H&H dropped from 10.6/31.4 to 7.2/21.4. INR 1.3 this morning. She is NPO. Last EGD and colonoscopy by Dr. Lam in 2019. Allergies Allergy/AdvReac Type Severity Reaction Status Date / Time lisinopril AdvReac Intermediate Elevates Verified 02/25/22 22:59 potassium losartan AdvReac Intermediate Elevates Verified 02/25/22 22:59 potassium Home Medications Medication Instructions Recorded Confirmed Type cholecalciferol (vitamin D3) 125 5,000 unit PO QAM 12/25/19 02/25/22 History mcg (5,000 unit) capsule omeprazole 20 mg tablet,delayed 20 mg PO QAM 03/27/20 02/25/22 History release blood-glucose sensor (Dexcom G6 #3 ea 09/22/20 12/28/21 History Sensor device) blood-glucose transmitter (Dexcom #1 ea 09/22/20 12/28/21 History G6 Transmitter device) subcutaneous insulin pump (MiniMed #1 ea 09/22/20 12/28/21 History 530G Insulin Pump) acetaminophen 325 mg capsule 650 mg PO QID PRN Pain 01/09/21 02/25/22 History (Tylenol) metoprolol succinate 25 mg 25 mg PO QPM 03/17/21 02/25/22 History tablet,extended release 24 hr Lactobacillus 1 cap PO BID 03/26/21 02/25/22 History acidophilus-Bifidobac.animalis 31 billion cell capsule blood sugar diagnostic (Contour #400 ea 04/23/21 12/28/21 Rx Next Test Strips) Wheeled Walker #1 ea 05/14/21 12/28/21 Rx Novolog U-100 Insulin aspart 100 30 unit (0.3 mL) continuous 07/21/21 02/25/22 Rx unit/mL subcutaneous solution subcutaneous infusion DAILY 90 (insulin aspart U-100) days #30 mL furosemide 20 mg tablet (Lasix) 40 mg PO .COMPLEX 09/29/21 02/25/22 History insulin syringe-needle U-100 0.3 #100 ea 10/14/21 12/28/21 Rx mL 29 gauge x 1/2" (BD Insulin Syringe) insulin glargine 100 unit/mL 14 unit subcut QPM PRN .PUMP 10/15/21 02/25/22 History subcutaneous solution (Lantus FAILURE U-100 Insulin) levothyroxine 125 mcg tablet 125 mcg PO DAILY #90 tabs 02/08/22 02/25/22 Rx magnesium oxide 400 mg PO BID 02/25/22 02/25/22 History oxycodone 5 mg tablet 5 mg PO Q4 PRN Pain 02/25/22 02/25/22 History Patient History Medical History Anasarca Secondary to nutritional deficiency and possibly component of diastolic HF per 05/2021 cardio records > diuretics adjusted and GUS wraps for legs recommended Anemia Hgb 9s per chart review Deep vein thrombosis (DVT) of right lower extremity Non-occlusive DVT (right peroneal vein)- 08/2019 while on chemo Reason for Xarelto Diabetes mellitus type 1 + insulin pump Follows with [facility] 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 Lozada (MRI abd rec in one year) Lung cancer Mets from breast ca- currently undergoing- Enhertu targeted tx for lung nodules q3 weeks Mixed conductive and sensorineural hearing loss of right ear with restricted hearing of left ear Multiple pulmonary nodules Under surveillance by CTS Tooth abscess 5 teeth possible abscesses- plan for upcoming extraction Urinary incontinence UTI (urinary tract infection) Current symptoms (no testing done)- rx'd cipro BID (to start 11/10/21) Surgical History History of anesthesia reaction Sister > slow to wake History of breast biopsy Right History of carpal tunnel release R/L History of cataract surgery B/L History of cholecystectomy History of colonoscopy History of ERCP History of esophagogastroduodenoscopy (EGD) Large hiatal hernia, non-bleeding duodenal ulcer (done for iron def anemia evaluation) History of hip surgery Left s/p femur fracture History of tonsillectomy and adenoidectomy History of tooth extraction History of vascular access device APort--left side of chest S/P mastectomy Right breast, with sentinel lymph node biopsy, Dr. Preet Burdick, [facility] S/P mastectomy right S/P thyroid biopsy benign Family History Sister Pancreatic cancer Breast cancer Cancer Father Lung cancer Cancer Brother Diabetes Brother Diabetes Parkinson disease Grandfather (Maternal) Myocardial infarction Other No family history of adverse response to anesthesia No family history of bleeding disorder Denies family history of Ovarian cancer Prostate cancer Heart disease Colorectal cancer Hypertension Stroke Asthma Social History Smoking Status: Never smoker Second Hand Exposure: No; Do You Dip or Chew Tobacco: No; Tobacco Cessation Education Requested by Patient: No Hx Alcohol Use: No Hx Substance Use: No Preferred Language: Liberian Communication Ability: Unable Visual Impairment: No Limitations Hearing Ability: Normal [employer] Required: No Beliefs That Will Affect Care: None marital status: / Current Living Situation: Alone Current Living Situation Comment: son lena has been staying w/ her since last february current occupational status: retired Other Information That Helps Us Care for You: No Feels Safe at Home: Yes Safety Concerns: Feels Safe At This Time caffeine: Yes Dental Care, Regularly: Yes Physical Activity Frequency: Does not Exercise Seatbelt Use: always Sunscreen Use: Yes Assistive Devices: Walker Assistive Devices Comment: insulin pump Review of Systems Constitutional: + fatigue; no fever and no chills Respiratory: + dyspnea on exertion; no cough Cardiovascular: no chest pain and no palpitations Gastrointestinal: as per Subjective / HPI; no nausea, no vomiting and no melena Musculoskeletal: + swelling Physical Exam Constitutional: WD/WN, vitals as above Eyes: EOM intact bilaterally Neck: normal visual inspection Respiratory: normal respiratory effort Auscultation: lungs clear to auscultation bilaterally Cardiovascular: Rate/Rhythm: regular rate and regular rhythm Gastrointestinal (Abdomen): Inspection/Auscultation: + significant pannus Percussion/Palpation: abdomen soft; abdomen nontender Musculoskeletal: Extremities: + lower extremity abnormal to inspection Bilateral (edema) Psychiatric: A+Ox3, euthymic affect Results & Data ([facility]) Vital Signs (Past 12 Hours) Vital Signs Temp Pulse Pulse Resp BP BP Pulse Ox 02/26/22 08:28 36.4 C L 88 18 102/68 96 02/26/22 07:54 36.4 C L 84 18 113/65 98 02/26/22 07:51 36.3 C L 77 18 109/44 L 98 02/26/22 07:09 36.4 C L 79 14 111/49 L 97 02/26/22 06:53 36.7 C 86 18 103/46 L 97 02/26/22 06:44 36.7 C 81 18 103/46 L 02/26/22 06:29 36.5 C 88 18 102/51 L 96 02/26/22 06:07 36.4 C 80 18 95/46 L 96 02/26/22 04:46 36.6 C 88 8 L 126/60 95 02/26/22 02:00 83 02/26/22 02:00 02/26/22 02:00 02/26/22 02:01 36.6 C 96 H 18 112/97 99 02/26/22 01:30 77 16 122/54 L 95 02/26/22 01:00 81 12 134/57 L 95 02/26/22 00:30 87 15 130/61 96 02/26/22 00:00 85 13 141/71 H 95 02/25/22 23:30 88 15 147/79 H 96 02/25/22 23:00 84 12 139/64 94 02/25/22 22:30 82 12 148/77 H 95 O2 Del Method O2 Del Method 02/26/22 08:28 02/26/22 07:54 02/26/22 07:51 02/26/22 07:09 02/26/22 06:53 02/26/22 06:44 02/26/22 06:29 02/26/22 06:07 02/26/22 04:46 Room Air 02/26/22 02:00 02/26/22 02:00 Room Air 02/26/22 02:00 Room Air 02/26/22 02:01 Room Air 02/26/22 01:30 Room Air 02/26/22 01:00 Room Air 02/26/22 00:30 Room Air 02/26/22 00:00 Room Air 02/25/22 23:30 Room Air 02/25/22 23:00 Room Air 02/25/22 22:30 Room Air Laboratory Results Abnormal lab results 02/25/22 02/25/22 02/25/22 Range/Units 20:21 23:03 23:03 RBC 2.24 L (3.93-5.22) M/uL Hgb 7.2 L (12.0-16.0) g/dl POC Hgb 7.8 L (12.0-16.0) g/dl Hct 22.0 L (34.1-44.9) % POC Hct 23 L (37-47) % RDW Std Deviation 66.0 H (36.4-46.3) fL RDW Coeff of Mikayla 18.2 H (11.5-14.5) % [place] # (Auto) 1.38 H (0.24-0.82) K/uL Immature Gran # (Auto) 0.05 H (0.00-0.02) K/uL PT (9.0-12.0) Seconds INR (0.9-1.1) APTT (21.0-31.0) Seconds POC Sodium 134 L (135-144) mmol/L Sodium 133 L (136-145) mmol/L POC Potassium 5.1 H (3.3-5.0) mmol/L Potassium (3.5-5.1) mmol/L POC Total CO2 23 L (24-31) mmol/L Anion Gap 2 L (3-11) POC Anion Gap 15.0 L (16-25) mmol/L POC BUN 25 H (7-18) mg/dl BUN 28 H (6-23) mg/dl Creatinine 1.35 H (0.6-1.2) mg/dl POC Creatinine 1.5 H (0.6-1.3) mg/dl BUN/Creatinine Ratio 20.7 H (10-20) Glucose 136 H (70-99(Fasting)) mg/dl POC Glucose (70-99) mg/dl POC Glucose (other) 172 H (70-99) mg/dl Hemoglobin A1c (4.5-5.6) % Calcium 7.8 L (8.5-10.1) mg/dl AST 56 H (13-39) U/L Alkaline Phosphatase 211 H (34-104) U/L Total Protein 4.7 L (6.0-8.3) gm/dl Albumin 2.2 L (3.4-5.0) gm/dl Crossmatch 02/25/22 02/25/22 02/26/22 Range/Units 23:03 23:16 05:55 RBC (3.93-5.22) M/uL Hgb 7.2 L (12.0-16.0) g/dl POC Hgb (12.0-16.0) g/dl Hct 21.4 L (34.1-44.9) % POC Hct (37-47) % RDW Std Deviation (36.4-46.3) fL RDW Coeff of Mikayla (11.5-14.5) % [place] # (Auto) (0.24-0.82) K/uL Immature Gran # (Auto) (0.00-0.02) K/uL PT (9.0-12.0) Seconds INR (0.9-1.1) APTT (21.0-31.0) Seconds POC Sodium (135-144) mmol/L Sodium (136-145) mmol/L POC Potassium (3.3-5.0) mmol/L Potassium (3.5-5.1) mmol/L POC Total CO2 (24-31) mmol/L Anion Gap (3-11) POC Anion Gap (16-25) mmol/L POC BUN (7-18) mg/dl BUN (6-23) mg/dl Creatinine (0.6-1.2) mg/dl POC Creatinine (0.6-1.3) mg/dl BUN/Creatinine Ratio (10-20) Glucose (70-99(Fasting)) mg/dl POC Glucose (70-99) mg/dl POC Glucose (other) (70-99) mg/dl Hemoglobin A1c 8.7 H (4.5-5.6) % Calcium (8.5-10.1) mg/dl AST (13-39) U/L Alkaline Phosphatase (34-104) U/L Total Protein (6.0-8.3) gm/dl Albumin (3.4-5.0) gm/dl Crossmatch See Detail 02/26/22 02/26/22 02/26/22 Range/Units 05:55 05:55 06:44 RBC (3.93-5.22) M/uL Hgb 5.5 L* (12.0-16.0) g/dl POC Hgb (12.0-16.0) g/dl Hct 16.3 L* (34.1-44.9) % POC Hct (37-47) % RDW Std Deviation (36.4-46.3) fL RDW Coeff of Mikayla (11.5-14.5) % [place] # (Auto) (0.24-0.82) K/uL Immature Gran # (Auto) (0.00-0.02) K/uL PT 13.5 H (9.0-12.0) Seconds INR 1.3 H (0.9-1.1) APTT 36.8 H (21.0-31.0) Seconds POC Sodium (135-144) mmol/L Sodium 135 L (136-145) mmol/L POC Potassium (3.3-5.0) mmol/L Potassium 5.2 H (3.5-5.1) mmol/L POC Total CO2 (24-31) mmol/L Anion Gap 0 L (3-11) POC Anion Gap (16-25) mmol/L POC BUN (7-18) mg/dl BUN 28 H (6-23) mg/dl Creatinine 1.37 H (0.6-1.2) mg/dl POC Creatinine (0.6-1.3) mg/dl BUN/Creatinine Ratio 20.4 H (10-20) Glucose 112 H (70-99(Fasting)) mg/dl POC Glucose (70-99) mg/dl POC Glucose (other) (70-99) mg/dl Hemoglobin A1c (4.5-5.6) % Calcium 7.3 L (8.5-10.1) mg/dl AST (13-39) U/L Alkaline Phosphatase (34-104) U/L Total Protein (6.0-8.3) gm/dl Albumin 1.8 L (3.4-5.0) gm/dl Crossmatch 02/26/22 Range/Units 09:11 RBC (3.93-5.22) M/uL Hgb (12.0-16.0) g/dl POC Hgb (12.0-16.0) g/dl Hct (34.1-44.9) % POC Hct (37-47) % RDW Std Deviation (36.4-46.3) fL RDW Coeff of Mikayla (11.5-14.5) % [place] # (Auto) (0.24-0.82) K/uL Immature Gran # (Auto) (0.00-0.02) K/uL PT (9.0-12.0) Seconds INR (0.9-1.1) APTT (21.0-31.0) Seconds POC Sodium (135-144) mmol/L Sodium (136-145) mmol/L POC Potassium (3.3-5.0) mmol/L Potassium (3.5-5.1) mmol/L POC Total CO2 (24-31) mmol/L Anion Gap (3-11) POC Anion Gap (16-25) mmol/L POC BUN (7-18) mg/dl BUN (6-23) mg/dl Creatinine (0.6-1.2) mg/dl POC Creatinine (0.6-1.3) mg/dl BUN/Creatinine Ratio (10-20) Glucose (70-99(Fasting)) mg/dl POC Glucose 115 H (70-99) mg/dl POC Glucose (other) (70-99) mg/dl Hemoglobin A1c (4.5-5.6) % Calcium (8.5-10.1) mg/dl AST (13-39) U/L Alkaline Phosphatase (34-104) U/L Total Protein (6.0-8.3) gm/dl Albumin (3.4-5.0) gm/dl Crossmatch PG Care Time/CCT Total # of Minutes Spent Total Time Spent with Patient: Total time spent is greater than 50% in coordination of care (as documented) at patient's floor/unit and/or counseling patient: Coding Level of Care Code 52933 Initial Inpt Care Lvl 3 Diagnoses Anemia due to acute blood loss D62 Rectal bleeding K62.5
[2022-02-26 10:22] LABS: Hematocrit (blood only) 15.9 % (34.1-44.9); Hemoglobin 5.3 g/dl (12.0-16.0)
[2022-02-26] MEDS ORDERED: PANTOprazole 40 MG in SYRINGE 0 ML IV SCH (11:00)
--- NOTE | 2022-02-26 11:19 | Hospitalist Progress Note ---
Date of Service February 26, 2022 Assessment & Plan (1) Rectal bleeding: Plan: Rectal bleeding status post resumption of Xarelto after hemorrhoid surgery- Received tranexamic acid from the ED Holding Xarelto - unclear last dose but suspect yesterday morning Will increase pantoprazole to additional 40mg IV now (total 80mg and 8mg/hr drip) CT A/P with IV contrast Consult general surgery - discussed with Cora Garcia at bedside (2) Anemia due to acute blood loss: Plan: Initial hemoglobin 7.2, repeat 5.5, s/p 1 unit packed RBCs, repeat 5.3 therefore will transfer to ICU (discussed with Dr Suarez), additional unit currently running Increased tachycardia however BP maintaining currently [facility] contact [facility] regarding need for irradiated blood as I do not see a charted reason for this. Previously she has received 8 units of non- irradiated blood. (3) Type 1 diabetes: Plan: HbA1C 9.0 in October, current HbA1C not accurate in setting of acute GI bleed Holding insulin pump and Dexcom Consult pharmacy for glycemic control (4) CAD (coronary artery disease), [place] coronary artery: Plan: CAD/hypertension medications on hold due to relatively low blood pressure secondary to rectal bleeding (5) GERD (gastroesophageal reflux disease): Plan: Changing omeprazole p.o. to pantoprazole IV (6) Diastolic CHF: (7) Deep vein thrombosis (DVT) of right lower extremity: Plan: Xarelto on hold due to rectal bleeding (8) Insulin pump status: (9) Hypothyroidism: Plan: Continue levothyroxine 125 mcg daily (10) Breast cancer: Plan: Stage IV invasive ductal carcinoma. Last chemotherapy (Enhertu) was 4 weeks ago per patient recollection. Unlikely contributing towards current anemia. (11) IPMN (intraductal papillary mucinous neoplasm): Admission and Anticipated Discharge Date Admission Date: February 26, 2022 Subjective Patient seen and examined the same day as admission therefore we will not be billing for this encounter. She reports generally not feeling well. No dizziness while lying in bed but reports she had been somewhat dizzy on moving around. No abdominal pain. Continued passing blood clots from her rectum. Review of Systems Review of Systems: All systems reviewed & are unremarkable except as noted in Subjective Physical Exam Constitutional: WD/WN, vitals as above Eyes: + anicteric sclerae; normal pupil size Respiratory: normal respiratory effort, lungs clear to auscultation Cardiovascular: RRR, no murmur, no edema Gastrointestinal (Abdomen): Inspection/Auscultation: abdomen normal to inspection; abdomen not distended Percussion/Palpation: abdomen soft; abdomen nontender, no guarding and abdomen not rigid Skin: no rashes, warm and dry Psychiatric: A+Ox3, euthymic affect Results & Data Results & Data ([facility]) Vital Signs (Past 12 Hours) Vital Signs Temp Pulse Pulse Resp BP BP Pulse Ox 02/26/22 10:45 36.3 C L 98 H 22 119/54 L 95 02/26/22 08:28 36.4 C L 88 18 102/68 96 02/26/22 07:54 36.4 C L 84 18 113/65 98 02/26/22 07:51 36.3 C L 77 18 109/44 L 98 02/26/22 07:09 36.4 C L 79 14 111/49 L 97 02/26/22 06:53 36.7 C 86 18 103/46 L 97 02/26/22 06:44 36.7 C 81 18 103/46 L 02/26/22 06:29 36.5 C 88 18 102/51 L 96 02/26/22 06:07 36.4 C 80 18 95/46 L 96 02/26/22 04:46 36.6 C 88 8 L 126/60 95 02/26/22 02:00 83 02/26/22 02:00 02/26/22 02:00 02/26/22 02:01 36.6 C 96 H 18 112/97 99 02/26/22 01:30 77 16 122/54 L 95 02/26/22 01:00 81 12 134/57 L 95 02/26/22 00:30 87 15 130/61 96 02/26/22 00:00 85 13 141/71 H 95 02/25/22 23:30 88 15 147/79 H 96 O2 Del Method O2 Del Method 02/26/22 10:45 02/26/22 08:28 02/26/22 07:54 02/26/22 07:51 02/26/22 07:09 02/26/22 06:53 02/26/22 06:44 02/26/22 06:29 02/26/22 06:07 02/26/22 04:46 Room Air 02/26/22 02:00 02/26/22 02:00 Room Air 02/26/22 02:00 Room Air 02/26/22 02:01 Room Air 02/26/22 01:30 Room Air 02/26/22 01:00 Room Air 02/26/22 00:30 Room Air 02/26/22 00:00 Room Air 02/25/22 23:30 Room Air PG Care Time/CCT Total # of Minutes Spent Total Time Spent with Patient: Total time spent is greater than 50% in coordination of care (as documented) at patient's floor/unit and/or counseling patient: Coding Level of Care Code None Diagnoses Rectal bleeding K62.5 Anemia due to acute blood loss D62 Type 1 diabetes E10.9 CAD (coronary artery disease), [place] coronary artery I25.10 GERD (gastroesophageal reflux disease) K21.9 Diastolic CHF I50.30 Deep vein thrombosis (DVT) of right lower extremity I82.401 Insulin pump status Z96.41 Hypothyroidism E03.9 Breast cancer C50.919 IPMN (intraductal papillary mucinous neoplasm) D49.0
[2022-02-26] MEDS: ACETAMINOPHEN 1,000 MG/100 ML VIAL IV PRN ×2 (11:26→20:49)
[2022-02-26] MEDS ORDERED: PANTOprazole 40 MG in SYRINGE 0 ML IV ONE (11:30)
[2022-02-26] MEDS: PANTOprazole 40 MG in DEXTROSE 5% 100 ML IV SCH ×3 (11:49→21:42)
[2022-02-26] MEDS ORDERED: LANTUS PER UNIT CHARGE SQ STA (12:23)
--- NOTE | 2022-02-26 12:27 | Surgery Consultation ---
Date of Consultation February 26, 2022 Assessment & Plan (1) Rectal bleeding: This is an 81yF with a PMH of breast ca, DM, CAD, GERD, on xarelto who presented to the [facility] ED on 02/25/22 with complaints of bleeding per rectum. Of significance the patient recently underwent hemorrhoid surgery at [place] last and resumed her Xarelto on Tuesday. She has been having worsening blood per rectum since yesterday. Today Hbg 5.3. RN noted an egg size blood clot this AM. She is currently receiving a 2nd unit of pRBC. We recommend to continue holding her blood thinners. She looks well despite blood counts. Her blood pressure is stable. She is going to be transferred to the ICU for close monitoring. In these situations typically will self resolve with transfusion and holding blood thinner. No plans for acute surgical intervention at this time. We will follow closely. Pt seen/examined with Dr. Butler Supervising Physician Co-Signing Physician Notes As per Cora Garcia physician commercial lines assistant Patient alert comfortable blood pressure 125/74 heart rate 102 blood infusing at this time Turned on right lateral position the perianal area was inspected grossly extended the hemorrhoidectomy easily appreciated there is no cellulitis no induration patient has minimal oozing at this time Continue with nonoperative management Holding Xarelto Avoid any constipation 20:45 reevaluated the patient at this time she still has some wheezing from the area she does have some clot formation he had 4 units of blood her hemoglobin has up to 9.7 her last vitals showed a blood pressure 128/65 with a pulse 88 At this point try to gently pack the anal canal using Gelfoam and strips wrapped with Vaseline gauze and placed in the canal along with 4 x 4 rolled up and held in place with Optifoam We will continue to follow hopefully be sufficient to stop the bleeding She had some discomfort during the procedure but seem to have subsided by the time we placed the final dressing History of Present Illness Attending Physician: Clarke Negron MD History of Present Illness This is an 81yF with a PMH of breast ca, DM, CAD, GERD, on xarelto who presented to the [facility] ED on 02/25/22 with complaints of bleeding per rectum. Of significance the patient recently underwent hemorrhoid surgery at [place] last . She reports she has done well with the procedure afterwards. Reports some light bleeding/spotting but nothing significant. She resumed her Xarelto on Tuesday (02/22/22). Starting yesterday she noticed she was having worsening bleeding associated with blood clots that was soaking through her pads. It did not resolve prompting her to come in to be evaluated. In the ER Hbg 7.2. She was admitted under the hospitalists service and blood thinner held. Unfortunately this AM she continued passing blood clots and found to have a hbg drop to 5.3. We have been consulted at this time for recommendations. Patient reports some mild rectal pain. Reports discomfort in the abdomen. No nausea/vomiting. No lightheadedness or dizziness. No new CP or SOB. She reports her BMs have been normal and cannot recall any trauma or hard stools. Thinks her last xarelto was yesterday. Allergies Allergy/AdvReac Type Severity Reaction Status Date / Time lisinopril AdvReac Intermediate Elevates Verified 02/25/22 22:59 potassium losartan AdvReac Intermediate Elevates Verified 02/25/22 22:59 potassium Home Medications Medication Instructions Recorded Confirmed Type cholecalciferol (vitamin D3) 125 5,000 unit PO QAM 12/25/19 02/25/22 History mcg (5,000 unit) capsule omeprazole 20 mg tablet,delayed 20 mg PO QAM 03/27/20 02/25/22 History release blood-glucose sensor (Dexcom G6 #3 ea 09/22/20 12/28/21 History Sensor device) blood-glucose transmitter (Dexcom #1 ea 09/22/20 12/28/21 History G6 Transmitter device) subcutaneous insulin pump (MiniMed #1 ea 09/22/20 12/28/21 History 530G Insulin Pump) acetaminophen 325 mg capsule 650 mg PO QID PRN Pain 01/09/21 02/25/22 History (Tylenol) metoprolol succinate 25 mg 25 mg PO QPM 03/17/21 02/25/22 History tablet,extended release 24 hr Lactobacillus 1 cap PO BID 03/26/21 02/25/22 History acidophilus-Bifidobac.animalis 31 billion cell capsule blood sugar diagnostic (Contour #400 ea 04/23/21 12/28/21 Rx Next Test Strips) Ninoska Boles #1 ea 05/14/21 12/28/21 Rx Novolog U-100 Insulin aspart 100 30 unit (0.3 mL) continuous 07/21/21 02/25/22 Rx unit/mL subcutaneous solution subcutaneous infusion DAILY 90 (insulin aspart U-100) days #30 mL furosemide 20 mg tablet (Lasix) 40 mg PO .COMPLEX 09/29/21 02/25/22 History insulin syringe-needle U-100 0.3 #100 ea 10/14/21 12/28/21 Rx mL 29 gauge x 1/2" (BD Insulin Syringe) insulin glargine 100 unit/mL 14 unit subcut QPM PRN .PUMP 10/15/21 02/25/22 History subcutaneous solution (Lantus FAILURE U-100 Insulin) levothyroxine 125 mcg tablet 125 mcg PO DAILY #90 tabs 02/08/22 02/25/22 Rx magnesium oxide 400 mg PO BID 02/25/22 02/25/22 History oxycodone 5 mg tablet 5 mg PO Q4 PRN Pain 02/25/22 02/25/22 History Patient History Medical History Anasarca Secondary to nutritional deficiency and possibly component of diastolic HF per 05/2021 cardio records > diuretics adjusted and GUS wraps for legs recommended Anemia Hgb 9s per chart review Deep vein thrombosis (DVT) of right lower extremity Non-occlusive DVT (right peroneal vein)- 08/2019 while on chemo Reason for Xarelto Diabetes mellitus type 1 + insulin pump Follows with [facility] endocrine/inserter GERD (gastroesophageal reflux disease) Diet controlled Shane's thyroiditis History of blood transfusion 02/2020 Hx of gastric ulcer HX: breast cancer Rt (Dx 2019) > s/p surgery/chemo Mets to lung > targeted txs Hyperlipidemia Hypertension Hypothyroidism Insulin pump in place IPMN (intraductal papillary mucinous neoplasm) 3 seen on EUS (10 mm, 13 mm, 8 mm) with FNA performed showing mucinous cyst and no malignancy Follows with Dr. Lozada (MRI abd rec in one year) Lung cancer Mets from breast ca- currently undergoing- Enhertu targeted tx for lung nodules q3 weeks Mixed conductive and sensorineural hearing loss of right ear with restricted hearing of left ear Multiple pulmonary nodules Under surveillance by CTS Tooth abscess 5 teeth possible abscesses- plan for upcoming extraction Urinary incontinence UTI (urinary tract infection) Current symptoms (no testing done)- rx'd cipro BID (to start 11/10/21) Surgical History History of anesthesia reaction Sister > slow to wake History of breast biopsy Right History of carpal tunnel release R/L History of cataract surgery B/L History of cholecystectomy History of colonoscopy History of ERCP History of esophagogastroduodenoscopy (EGD) Large hiatal hernia, non-bleeding duodenal ulcer (done for iron def anemia evaluation) History of hip surgery Left s/p femur fracture History of tonsillectomy and adenoidectomy History of tooth extraction History of vascular access device APort--left side of chest S/P mastectomy Right breast, with sentinel lymph node biopsy, Dr. Preet Burdick, [facility] S/P mastectomy right S/P thyroid biopsy benign Family History Sister Pancreatic cancer Breast cancer Cancer Father Lung cancer Cancer Brother Diabetes Brother Diabetes Parkinson disease Grandfather (Maternal) Myocardial infarction Other No family history of adverse response to anesthesia No family history of bleeding disorder Denies family history of Ovarian cancer Prostate cancer Heart disease Colorectal cancer Hypertension Stroke Asthma Social History Smoking Status: Never smoker Second Hand Exposure: No; Do You Dip or Chew Tobacco: No; Tobacco Cessation Education Requested by Patient: No Hx Alcohol Use: No Hx Substance Use: No Preferred Language: Tamazight Communication Ability: Unable Visual Impairment: No Limitations Hearing Ability: Normal Operator Assistant I Cementing Required: No Beliefs That Will Affect Care: None marital status: / Current Living Situation: Alone Current Living Situation Comment: son lena has been staying w/ her since last february current occupational status: retired Other Information That Helps Us Care for You: No Feels Safe at Home: Yes Safety Concerns: Feels Safe At This Time caffeine: Yes Dental Care, Regularly: Yes Physical Activity Frequency: Does not Exercise Seatbelt Use: always Sunscreen Use: Yes Assistive Devices: Walker Assistive Devices Comment: insulin pump Review of Systems Review of Systems: no lightheadedness, no dizziness Constitutional: no fever and no chills Cardiovascular: no chest pain Gastrointestinal: + abdominal pain; no nausea and no vomiting pain and bleeding per rectum Physical Exam Physical Exam: awake/alert, no distress Respiratory: normal respiratory effort Gastrointestinal (Abdomen): Inspection/Auscultation: abdomen not distended Percussion/Palpation: abdomen soft; abdomen nontender + blood clots/drainage on pads and around anus Results & Data ([facility]) Vital Signs (Past 12 Hours) Vital Signs Temp Pulse Pulse Resp BP BP Pulse Ox 02/26/22 11:50 36.4 C L 102 H 22 110/54 L 95 02/26/22 11:20 36.3 C L 100 H 22 118/54 L 96 02/26/22 11:05 36.3 C L 102 H 22 113/54 L 96 02/26/22 10:45 36.3 C L 98 H 22 119/54 L 95 02/26/22 08:28 36.4 C L 88 18 102/68 96 02/26/22 07:54 36.4 C L 84 18 113/65 98 02/26/22 07:51 36.3 C L 77 18 109/44 L 98 02/26/22 07:09 36.4 C L 79 14 111/49 L 97 02/26/22 06:53 36.7 C 86 18 103/46 L 97 02/26/22 06:44 36.7 C 81 18 103/46 L 02/26/22 06:29 36.5 C 88 18 102/51 L 96 02/26/22 06:07 36.4 C 80 18 95/46 L 96 02/26/22 04:46 36.6 C 88 8 L 126/60 95 02/26/22 02:00 83 02/26/22 02:00 02/26/22 02:00 02/26/22 02:01 36.6 C 96 H 18 112/97 99 02/26/22 01:30 77 16 122/54 L 95 02/26/22 01:00 81 12 134/57 L 95 02/26/22 00:30 87 15 130/61 96 O2 Del Method O2 Del Method 02/26/22 11:50 02/26/22 11:20 02/26/22 11:05 02/26/22 10:45 02/26/22 08:28 02/26/22 07:54 02/26/22 07:51 02/26/22 07:09 02/26/22 06:53 02/26/22 06:44 02/26/22 06:29 02/26/22 06:07 02/26/22 04:46 Room Air 02/26/22 02:00 02/26/22 02:00 Room Air 02/26/22 02:00 Room Air 02/26/22 02:01 Room Air 02/26/22 01:30 Room Air 02/26/22 01:00 Room Air 02/26/22 00:30 Room Air PG Care Time/CCT Total # of Minutes Spent Total Time Spent with Patient: Total time spent is greater than 50% in coordination of care (as documented) at patient's floor/unit and/or counseling patient: Coding Level of Care Code 44851 Initial Inpt Care Lvl 1 Diagnoses Rectal bleeding K62.5
[2022-02-26] MEDS ORDERED: OPTIRAY 350 100ml IV ONE (12:30)
--- NOTE | 2022-02-26 12:48 | CT Scan Report ---
CT SCAN OF THE ABDOMEN AND PELVIS WITH IV CONTRAST CLINICAL HISTORY: GI bleeding. COMPARISON STUDY: Abdominal CT dated 12/11/2021. TECHNIQUE: Following the IV administration of 90 cc of Optiray 350, CT scan of the abdomen and pelvi s is performed from the lung bases to the proximal femora. Images are reviewed in the axial, sagittal , and coronal planes. IV contrast was administered without complication. A dose lowering technique wa s utilized adhering to the principles of ALARA. The examination is degraded by streak artifact from t he body wall abutting the CT gantry and from the right arm which could not be elevated of the abdomen . CT DOSE: 610.37 mGy.cm FINDINGS: Lung bases: The heart is normal in size and without pericardial effusion. The coronary arteries are d ensely calcified. There is elevation of the left hemidiaphragm. There are left larger than right pleu ral effusions with dependent atelectasis. A 3 mm left lower lobe pulmonary nodule on image #6 is unch anged. There is a large hiatal hernia. Liver: The contrast-enhanced liver is normal in size and heterogeneous in attenuation. There is no in trahepatic biliary ductal dilatation. The hepatic veins and portal veins are patent. Gallbladder: Surgically absent noting clips in the gallbladder fossa. Spleen: Normal in size and attenuation. 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 Pancreas: The pancreas is atrophic and grossly unremarkable. Adrenal glands: Unremarkable. Kidneys: The contrast enhanced kidneys demonstrate cortical atrophy and are without hydronephrosis. T he kidneys enhance symmetrically. Abdominal vasculature: The abdominal aorta is normal in course and caliber noting moderate atheroscle rotic calcification. Bowel: There is circumferential rectal wall thickening with perirectal infiltration. There is no danielle l obstruction. Moderate fecal retention is seen throughout the colon. The appendix is not identified . Peritoneum: There is diffuse mesenteric edema and a small volume of abdominopelvic ascites. No intrap eritoneal free air is seen. Lymphadenopathy: None. Pelvic viscera: The bladder is markedly distended but otherwise normal in appearance. The uterus and adnexa are normal as visualized. A vaginal pessary is in place Skeletal structures: The skeletal structures are heterogeneously osteopenic. No lytic or blastic lesi ons are clearly seen. There is posttraumatic deformity and postoperative change seen in the left prox imal femur. There are healed right-sided rib fractures. Soft tissues: There is anasarca of the body wall. IMPRESSION: 1. Findings suggest a nonspecific proctitis. Clinical correlation will be required. 2. Large hiatal hernia. 3. There is evidence of fluid overload with marked anasarca of the body wall, small pleural effusions , diffuse mesenteric edema, and a small volume of ascites. 4. Marked bladder distention. 5. Additional findings as above. ACT 112: Negative or not required by law. Electronically signed by: Mukesh Hawley M.D. 02/26/2022 12:47 PM
--- NOTE | 2022-02-26 13:38 | Critical Care Consultation ---
Date of Consultation February 26, 2022 Assessment & Plan (1) Rectal bleeding: (2) Anemia due to acute blood loss: (3) Anasarca: (4) Uncontrolled type 1 diabetes mellitus: (5) Breast cancer: (6) Deep vein thrombosis (DVT) of right lower extremity: (7) Hypothyroidism: Plan 81 y/o F PmHX breast cancer s/p mastectomy currently undergoing chemotherapy for metastasis to lungs, uncontrolled T1DM, CAD, hypothyroidism, DVT RLE, recent hemorroidectomy 02/18 admitted to ICU due to persistent low hemoglobin secondary to blood loss. Neuro CAM ICU: Negative Sedation/Analgesia: None required. Cardiac CAD/HTN: Metoprolol and furosemide on hold while patient's BP on softer side. Continue to monitor vitals. Respiratory SOB/Huggins: -Most likely multifactorial in setting of current chemotherapy, chemotherapy side effects such as anasarca, anemia in the face of bleed. -Treating anemia as below. -Patient saturating well on RA, O2 as needed. GI NPO while potential active bleed and possible need for surgery if worsening. Rectal Bleeding: -Recent hemorrhoidectomy 02/18, Xarelto resumed 02/22, held upon entry to hospital. -Last dose of Xarelto 02/25 18:00. -Blood loss anemia as below. -GI consulted - recommended consult surgery. -Surgery consulted- No plans for acute surgical intervention at this time but will follow closely. Renal/Electrolytes SETH: -Creatinine 1.35 on admission, 1.37 on repeat. -Most likely prerenal etiology given blood loss anemia. -Will continue to trend as patient transfused and repleted fluid. Replenish electrolytes as needed. Monitor I&O's. Endo T1DM: -A1c 8.7, SSI, ICU hypoglycemia protocol in place. Heme Anemia secondary to blood loss from Rectal Bleeding: -Hemmorhoidectomy 02/18 resumed Xarelto 02/22 however held upon entry to hospital. -CTA A&P w/ evidence of anasarca, nonspecific proctitis, large hiatal hernia, no mention of overt bleeding. -Hgb 7.2 on entry to hospital. Transfused 1unit PRBC with repeat hgb 5.5. -Transfused 1unit FFP, ordered another 2 units PRBCs to be transfused. -Monitor H&H closely q6h. -Transfuse if hgb <8. Breast Cancer: Undergoing Enhertu [id number] for stage IV invasive ductal carcinoma. Noted. ID WBC 8.61, procal 0.38, covid negative. No indications for infection at this time. Lines/IV Access Port catheter at L chest, peripheral IV. DVT Prophylaxis Holding Xarelto in face of active bleed. SCDs bilaterally. Dispo: ICU, patient full code, may want to readdress goals of care. Supervising Physician Co-Signing Physician Notes 81-year-old female with stage IV left breast cancer presenting to the ICU with post hemorrhoidectomy bleed requiring large amounts of blood products. Blood pressure and heart rate have stabilized. We will give 2 g of calcium gluconate. Follow-up CBC. CTA of the abdomen pelvis without evidence of acute arterial bleed. She does have anasarca secondary to volume overload. We will have to consider gentle diuresis. She has SETH in the setting of mild hypotension. Hold all anticoagulants. She has not required pressors. Anticipate downgrade from the ICU tomorrow. Appreciate input from GI and surgical services. History of Present Illness Reason for Consultation: icu admission Requesting Physician: Clarke Negron MD Attending Physician: Clarke Negron MD History of Present Illness Colleen is an 81 y/o F w/ PmHx breast cancer s/p mastectomy currently undergoing chemotherapy for metastasis to lungs, uncontrolled T1DM, CAD, hypothyroidism, DVT RLE, recent hemorroidectomy 02/18 coming to the hospital for concern of increased bleeding from anus. Patient states she was down at [place] on 02/18 for a hemorrhoidectomy with Dr. Landeros performed without complication. She states she was told to restart Xarelto Tuesday and she did so without issue. She had a small amount of bleeding since the operation and then on morning she woke up to find a large amount of blood that had soaked her pad and had also went through another pad. She then came to the ER over concern of bleeding and last dose of Xarelto was yesterday around 6PM. In terms of her cancer she was diagnosed with breast cancer in 04/2019 and started chemotherapy at that time. She was on chemotherapy from 04/2019 to 10/2019 where she was on 4 different chemotherapy agents however did not achieve good shrinkage of the mass. At that point chemotherapy was stopped and a mastectomy was performed. 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 She is now on chemotherapy again and undergoing chemotherapy every 3 weeks or until her counts normalize. She denies any fevers, chills, lightheadedness or dizziness. She says that she feels short of breath when moving to and from bed and bathroom or getting up. Allergies Allergy/AdvReac Type Severity Reaction Status Date / Time lisinopril AdvReac Intermediate Elevates Verified 02/25/22 22:59 potassium losartan AdvReac Intermediate Elevates Verified 02/25/22 22:59 potassium Home Medications Medication Instructions Recorded Confirmed Type cholecalciferol (vitamin D3) 125 5,000 unit PO QAM 12/25/19 02/25/22 History mcg (5,000 unit) capsule omeprazole 20 mg tablet,delayed 20 mg PO QAM 03/27/20 02/25/22 History release blood-glucose sensor (FusionStorm G6 #3 ea 09/22/20 12/28/21 History Sensor device) blood-glucose transmitter (Dexcom #1 ea 09/22/20 12/28/21 History G6 Transmitter device) subcutaneous insulin pump (MiniMed #1 ea 09/22/20 12/28/21 History 530G Insulin Pump) acetaminophen 325 mg capsule 650 mg PO QID PRN Pain 01/09/21 02/25/22 History (Tylenol) metoprolol succinate 25 mg 25 mg PO QPM 03/17/21 02/25/22 History tablet,extended release 24 hr Lactobacillus 1 cap PO BID 03/26/21 02/25/22 History acidophilus-Bifidobac.animalis 31 billion cell capsule blood sugar diagnostic (Contour #400 ea 04/23/21 12/28/21 Rx Next Test Strips) Wheeled Walker #1 ea 05/14/21 12/28/21 Rx Novolog U-100 Insulin aspart 100 30 unit (0.3 mL) continuous 07/21/21 02/25/22 Rx unit/mL subcutaneous solution subcutaneous infusion DAILY 90 (insulin aspart U-100) days #30 mL furosemide 20 mg tablet (Lasix) 40 mg PO .COMPLEX 09/29/21 02/25/22 History insulin syringe-needle U-100 0.3 #100 ea 10/14/21 12/28/21 Rx mL 29 gauge x 1/2" (BD Insulin Syringe) insulin glargine 100 unit/mL 14 unit subcut QPM PRN .PUMP 10/15/21 02/25/22 History subcutaneous solution (Lantus FAILURE U-100 Insulin) levothyroxine 125 mcg tablet 125 mcg PO DAILY #90 tabs 02/08/22 02/25/22 Rx magnesium oxide 400 mg PO BID 02/25/22 02/25/22 History oxycodone 5 mg tablet 5 mg PO Q4 PRN Pain 02/25/22 02/25/22 History Patient History Medical History Anasarca Secondary to nutritional deficiency and possibly component of diastolic HF per 05/2021 cardio records > diuretics adjusted and GUS wraps for legs recommended Anemia Hgb 9s per chart review Deep vein thrombosis (DVT) of right lower extremity Non-occlusive DVT (right peroneal vein)- 08/2019 while on chemo Reason for Xarelto Diabetes mellitus type 1 + insulin pump [place]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 Lozada (MRI abd rec in one year) Lung cancer Mets from breast ca- currently undergoing- Enhertu targeted tx for lung nodules q3 weeks Mixed conductive and sensorineural hearing loss of right ear with restricted hearing of left ear Multiple pulmonary nodules Under surveillance by CTS Tooth abscess 5 teeth possible abscesses- plan for upcoming extraction Urinary incontinence UTI (urinary tract infection) Current symptoms (no testing done)- rx'd cipro BID (to start 11/10/21) Surgical History History of anesthesia reaction Sister > slow to wake History of breast biopsy Right History of carpal tunnel release R/L History of cataract surgery B/L History of cholecystectomy History of colonoscopy History of ERCP History of esophagogastroduodenoscopy (EGD) Large hiatal hernia, non-bleeding duodenal ulcer (done for iron def anemia ev aluation) History of hip surgery Left s/p femur fracture History of tonsillectomy and adenoidectomy History of tooth extraction History of vascular access device APort--left side of chest S/P mastectomy Right breast, with sent[place] [facility] [place] right S/P thyroid biopsy benign Family History Sister Pancreatic cancer Breast cancer Cancer Father Lung cancer Cancer Brother Diabetes Brother Diabetes Parkinson disease Grandfather (Maternal) Myocardial infarction Other No family history of adverse response to anesthesia No family history of bleeding disorder Denies family history of Ovarian cancer Prostate cancer Heart disease Colorectal cancer Hypertension Stroke Asthma Social History Smoking Status: Never smoker Second Hand Exposure: No; Do You Dip or Chew Tobacco: No; Tobacco Cessation Education Requested by Patient: No Hx Alcohol Use: No Hx Substance Use: No Preferred Language: Finnish Communication Ability: Unable Visual Impairment: No Limitations Hearing Ability: Normal Bill Of Materials Clerk Required: No Beliefs That Will Affect Care: None marital status: / Current Living Situation: Alone Current Living Situation Comment: son lena has been staying w/ her since last february current occupational status: retired Other Information That Helps Us Care for You: No Feels Safe at Home: Yes Safety Concerns: Feels Safe At This Time caffeine: Yes Dental Care, Regularly: Yes Physical Activity Frequency: Does not Exercise Seatbelt Use: always Sunscreen Use: Yes Assistive Devices: Walker Assistive Devices Comment: insulin pump Review of Systems Review of Systems: As per HPI. Physical Exam Constitutional: WD/WN, vitals as above + thin and + frail appearing Eyes: PERRL, conjunctivae normal, anicteric sclerae Respiratory: Mild inspiratory and expiratory wheezing. Cardiovascular: Tachycardic, regular rhythm, S1 and S2, no murmurs. 1+ pitting edema up to hip. Gastrointestinal (Abdomen): normal bowel sounds, soft, nontender, no hepatosplenomegaly Psychiatric: A+Ox3, euthymic affect Results & Data Results & Data ([place]) Vital Signs (Past 12 Hours) Vital Signs Temp Pulse Pulse Resp BP BP Pulse Ox 02/26/22 13:26 36.5 C 99 H 20 122/60 96 02/26/22 12:48 36.4 C L 102 H 18 125/74 02/26/22 11:50 36.4 C L 102 H 22 110/54 L 95 02/26/22 11:20 36.3 C L 100 H 22 118/54 L 96 02/26/22 11:05 36.3 C L 102 H 22 113/54 L 96 02/26/22 10:45 36.3 C L 98 H 22 119/54 L 95 02/26/22 08:28 36.4 C L 88 18 102/68 96 02/26/22 07:54 36.4 C L 84 18 113/65 98 02/26/22 07:51 36.3 C L 77 18 109/44 L 98 02/26/22 07:09 36.4 C L 79 14 111/49 L 97 02/26/22 06:53 36.7 C 86 18 103/46 L 97 02/26/22 06:44 36.7 C 81 18 103/46 L 02/26/22 06:29 36.5 C 88 18 102/51 L 96 02/26/22 06:07 36.4 C 80 18 95/46 L 96 02/26/22 04:46 36.6 C 88 8 L 126/60 95 02/26/22 02:00 83 02/26/22 02:00 02/26/22 02:00 02/26/22 02:01 36.6 C 96 H 18 112/97 99 O2 Del Method O2 Del Method 02/26/22 13:26 02/26/22 12:48 02/26/22 11:50 02/26/22 11:20 02/26/22 11:05 02/26/22 10:45 02/26/22 08:28 02/26/22 07:54 02/26/22 07:51 02/26/22 07:09 02/26/22 06:53 02/26/22 06:44 02/26/22 06:29 02/26/22 06:07 02/26/22 04:46 Room Air 02/26/22 02:00 02/26/22 02:00 Room Air 02/26/22 02:00 Room Air 02/26/22 02:01 Room Air Resident Activity Tracking Resident Involvement: Resident Care Provided Care Provided: Adult Hospital Medicine
--- NOTE | 2022-02-26 14:14 | Pharmacy Report ---
Pharmacy Glycemic Short Note 2 - Date of Service February 26, 2022 - Glycemic Short BSG Results (Last 24 hours): 02/25/22 02/25/22 02/26/22 20:21 23:03 05:55 Glucose 136 H 112 H POC Glucose POC Glucose (other) 172 H 02/26/22 02/26/22 09:11 12:01 Glucose POC Glucose 115 H 155 H POC Glucose (other) OUTPATIENT ANTIDIABETIC REGIMEN: * Novolog insulin pump * Basal rates: * 8780-7318 = 0.45 units/hr * 9120-0667 = 0.55 units/hr * 6084-9191 = 0.50 units/hr * Total daily basal dose = 12 units/day * Carb Ratio: 15 * Sensitivity Factor: 55 * Goal range: 140-150 mg/dL * HbA1c = 8.7% (02/26/22) * Spoke extensively with patient at bedside on 02/26/22. Reports following with Karolina MckeonorSHIVA, at [facility] [place] Endocrinology. States she was due for an appointment recently but cancelled due to not feeling well which does appear to be true from the encounters I can see. Reports difficulty with DM management for years, especially recently with diagnosis and subsequent oreilly with cancer. States that basal rates were changed during last visit but cannot remember to what. I interrogated pump settings and found the settings listed above. States provider does not want her BSGs greater than 250 mg/dL. Average BSG at current A1c is 232 mg/dL so patient is likely not meeting this goal. Reports poor appetite in general since cancer diagnosis, especially over the last week. Changes sets every 3 days at home but states she needs to reorder supplies as she only has two sets left. Has not been using CGM as she finds it too difficult to operate. States she checks her BSG via fingerstick 4 times per day: upon wakening/before breakfast, 30-60 minutes after lunch and dinner, and then before bedtime. Instructed her to start checking BSG before all meals and before bedtime. ASSESSMENT: * 81 yo F admitted for rectal bleeding and anemia. Pharmacy has been consulted to assist with inpatient glycemic management. On insulin pump as an outpatient which was removed upon presentation to the ED. A1c demonstrates mediocre control of T1DM, would prefer A1c be less than 8% ideally. Patient known to pharmacy glycemic service. Currently NPO. * Spoke with patient extensively at bedside this morning. Retrieved pump settings. Given current NPO status, lack of pump supplies until more are ordered, and unknown procedural status, patient was in agreement to continue with subcutaneous basal-bolus injections to control BSGs while admitted. Will likely transition to pump day of discharge. * BSGs have been good so far: 172-115-155 mg/dL. * Gave the patient 5 units of Lantus x 1 at lunchtime today. Novolog adjusted to reflect previous admission data. Will continue to monitor closely. PLAN FOR INPATIENT GLYCEMIC CONTROL: * Basal insulin * Lantus 5 units SC x 1 * Bolus insulin * NovoLog per scale ACHS or Q6hrs while NPO * Goal Range: Low 110 mg/dL - High 140 mg/dL * Correction Factor: 45 mg/dL/unit * Nutritional / Prandial insulin per carb ratio of 1 unit per 15 grams CHO consumed
--- NOTE | 2022-02-26 15:23 | Electrocardiogram Report ---
Test Reason : Blood Pressure : / mmHG Vent. Rate : 087 BPM Atrial Rate : 087 BPM P-R Int : 150 ms QRS Dur : 064 ms QT Int : 332 ms P-R-T Axes : 058 066 050 degrees QTc Int : 399 ms Normal sinus rhythm Normal ECG When compared with ECG of 10-NOV-2021 14:06, Nonspecific T wave abnormality has replaced inverted T waves in Inferior leads Confirmed by Brad Javier ([id number]) on 02/26/2022 3:22:48 PM Referred By: REFERRED SELF Confirmed By:Brad Javier
--- NOTE | 2022-02-26 17:02 | Billing Data ---
Date of Service February 26, 2022 Coding Level of Care Code 77911 Initial Inpt Care Lvl 2
[2022-02-26] MEDS ORDERED: STAT IV STA (17:03)
[2022-02-26] MEDS ORDERED: CALCIUM GLUCONATE 10% 2,000 MG in DEXTROSE 5% 50 ML IV ONE (17:30)
[2022-02-26] MEDS: HEPARIN 100 UNIT/ML 5ML FLUSH FLUSH PRN (18:44)
[2022-02-26 19:14] LABS: Hematocrit (blood only) 27.8 % (34.1-44.9); Hemoglobin 9.7 g/dl (12.0-16.0); Mean Corpuscular Hemoglobin 31.8 pg (25.0-34.0); Mean Corpuscular Hgb Conc 34.9 g/dL (32.0-36.0); Mean Corpuscular Volume 91.1 fL (80.0-100.0); Mean Platelet Volume 9.4 fL (9.4-12.3); Platelet Count 120 K/uL (130-400); RDW Coefficient of Variation 16.5 % (11.5-14.5); RDW Standard Deviation 54.9 fL (36.4-46.3); Red Blood Count 3.05 M/uL (3.93-5.22); White Blood Count 9.71 K/ul (4.8-10.8)
[2022-02-26] MEDS ORDERED: GELATIN SPONGE SZ 100 ONE (20:08)
[2022-02-27 00:40] LABS: Hematocrit (blood only) 22.8 % (34.1-44.9); Hemoglobin 8.1 g/dl (12.0-16.0)
[2022-02-27] MEDS: PANTOprazole 40 MG in DEXTROSE 5% 100 ML IV SCH ×4 (03:31→17:45)
[2022-02-27] MEDS: cefTRIAXone SODIUM 2,000 MG in DEXTROSE 5% 50 ML IV SCH (04:18)
[2022-02-27 05:00] LABS: Albumin Level 2.1 gm/dl (3.4-5.0); BUN Creatinine Ratio 21.3 (10-20); Calcium 7.7 mg/dl (8.5-10.1); Creatinine Clr Calc Pharmacy 32.1 ml/min; Est GFR (African American) 42.2 ml/min; Est GFR (Non-African American) 36.4 ml/min; Magnesium 1.5 mg/dl (1.7-2.4); Phosphorus 3.2 mg/dl (2.5-4.9); Potassium 5.1 mmol/L (3.5-5.1)
[2022-02-27] MEDS: INSULIN ASPART PER UNIT SC SCH ×4 (06:07→21:01)
[2022-02-27 06:33] LABS: Hematocrit (blood only) 22.5 % (34.1-44.9); Hemoglobin 7.7 g/dl (12.0-16.0)
[2022-02-27] MEDS ORDERED: SODIUM CHLORIDE 0.9% 250 ML IV PRN (07:05)
[2022-02-27 07:07] LABS: Basophils # (auto) 0.03 K/uL (0-0.2); Basophils % (auto) 0.3 %; Eosinophils # (auto) 0.38 K/uL (0-0.50); Eosinophils % (auto) 4.4 %; Immature Granulocytes # (auto) 0.08 K/uL (0.00-0.02); Immature Granulocytes % (auto) 0.9 %; Lymphocytes # (auto) 1.95 K/uL (1.2-3.4); Lymphocytes % (auto) 22.7 %; Mean Platelet Volume 10.4 fL (9.4-12.3); Monocytes # (auto) 0.87 K/uL (0.24-0.82); Monocytes % (auto) 10.1 %; Neutrophils # (auto) 5.27 K/uL (1.4-6.5); Neutrophils % (auto) 61.6 %; Platelet Count 128 K/uL (130-400); RDW Coefficient of Variation 16.6 % (11.5-14.5); RDW Standard Deviation 53.2 fL (36.4-46.3); Red Blood Count 2.52 M/uL (3.93-5.22); White Blood Count 8.58 K/ul (4.8-10.8)
--- NOTE | 2022-02-27 07:28 | Surgery Progress Note ---
Date of Service February 27, 2022 Assessment & Plan (1) Rectal bleeding: Plan At this point no plans for surgery we will continue monitoring the output and hemoglobin she may need further transfusion Admission and Anticipated Discharge Date Admission Date: February 26, 2022 Subjective Nurses report that she is resting quietly this morning she apparently had urinary retention last evening the Muñoz catheter was inserted approximately 1800 cc drainage There is been no overt drainage from the perianal area there is minimal oozing Physical Exam Physical Exam: Did not physically see the patient until she was sleeping Her last vitals on the monitor showed a pressure 125/78 heart rate 72 Results & Data ([facility]) Vital Signs (Past 12 Hours) Vital Signs Pulse Resp BP Pulse Ox Pulse Ox O2 Del Method 02/27/22 03:00 72 11 L 93 02/27/22 03:00 93/39 L 02/27/22 02:00 85 14 97 02/27/22 02:00 112/47 L 02/27/22 01:30 81 5 L 97 02/27/22 01:00 75 11 L 95 02/27/22 01:00 100/50 L 02/27/22 02:00 97 Room Air 02/27/22 00:30 83 13 96 02/27/22 00:00 82 12 95 02/27/22 00:00 110/45 L 02/26/22 23:44 89 18 97 02/26/22 23:44 125/48 L 02/26/22 23:30 86 18 95 02/26/22 23:01 88 25 H 95 02/26/22 23:01 87/61 L 02/26/22 23:00 85 24 96 02/26/22 22:30 80 8 L 96 02/26/22 22:00 78 7 L 96 02/26/22 22:00 104/72 02/26/22 21:30 81 3 L 95 02/26/22 21:00 90 17 95 02/26/22 21:00 97/77 L 02/26/22 20:30 86 15 96 02/26/22 20:00 88 21 95 02/26/22 20:00 128/65 02/26/22 19:30 78 7 L 96 02/26/22 19:30 127/57 L Laboratory Results Laboratory from this morning's pending she did slightly drop her hemoglobin last night 7.1 PG Care Time/CCT Total # of Minutes Spent Total Time Spent with Patient: Total time spent is greater than 50% in coordination of care (as documented) at patient's floor/unit and/or counseling patient: Coding Level of Care Code 01430 Subseq Hosp Care Lvl 3 Diagnoses Rectal bleeding K62.5
[2022-02-27 07:40] LABS: Echinocytes 1+
[2022-02-27 07:46] LABS: Mean Corpuscular Hgb Conc 34.2 g/dL (32.0-36.0); Mean Corpuscular Volume 90.7 fL (80.0-100.0)
--- NOTE | 2022-02-27 09:06 | Critical Care Progress Note ---
Date of Service February 27, 2022 Assessment & Plan (1) Anemia due to acute blood loss: Plan: Rectal bleeding seems controlled at this time. Appreciate surgical input. Transfuse if hemoglobin less than 7. Patient has adequate IV access and also has a Mediport. (2) Rectal bleeding: Plan: Patient is status post hemorrhoidectomy with bleed which is now controlled. (3) Anasarca: Plan: Consider judicious diuresis in the near future. (4) Breast cancer: Plan: Consider palliative care consult as the patient has stage IV breast cancer. Plan Patient stable for downgrade to PCU status. Rest of care per primary team. Admission and Anticipated Discharge Date Admission Date: February 26, 2022 Subjective Patient currently hemodynamically stable and has not required vasopressors. Surgery reevaluated her overnight and she received surgical packing to the rectum. Belly soft today. No overt complaints. Saturating well on room air. Review of Systems Review of Systems: All systems reviewed & are unremarkable except as noted in HPI & below Physical Exam Constitutional: WD/WN, vitals as above + thin and + frail appearing Eyes: PERRL, conjunctivae normal, anicteric sclerae Respiratory: Diminished bilaterally. No tachypnea. No wheezes. Cardiovascular: Regular rate and rhythm. No murmurs. Pitting edema diffusely. Gastrointestinal (Abdomen): normal bowel sounds, soft, nontender, no hepatosplenomegaly Psychiatric: A+Ox3, euthymic affect Results & Data Results & Data ([facility]) Vital Signs (Past 12 Hours) Vital Signs Temp Pulse Resp BP Pulse Ox Pulse Ox O2 Del Method 02/27/22 08:45 36.6 C 86 16 94/55 L 02/27/22 08:30 36.5 C 82 14 124/52 L 02/27/22 08:17 36.7 C 81 14 117/40 L 95 02/27/22 08:00 86 20 97 02/27/22 08:00 107/41 L 02/27/22 07:30 83 15 95 02/27/22 07:01 90 22 96 02/27/22 07:01 124/50 L 02/27/22 07:00 88 18 95 02/27/22 06:30 77 12 95 02/27/22 06:00 84 19 96 02/27/22 06:00 121/47 L 02/27/22 05:30 83 17 95 02/27/22 05:00 82 14 95 02/27/22 05:00 106/46 L 02/27/22 04:30 81 11 L 94 02/27/22 04:01 82 13 96 02/27/22 04:01 133/64 02/27/22 04:00 84 16 98 02/27/22 03:30 73 12 92 02/27/22 03:00 72 11 L 93 02/27/22 03:00 93/39 L 02/27/22 02:00 85 14 97 02/27/22 02:00 112/47 L 02/27/22 01:30 81 5 L 97 02/27/22 01:00 75 11 L 95 02/27/22 01:00 100/50 L 02/27/22 02:00 97 Room Air 02/27/22 00:30 83 13 96 02/27/22 00:00 82 12 95 02/27/22 00:00 110/45 L 02/26/22 23:44 89 18 97 02/26/22 23:44 125/48 L 02/26/22 23:30 86 18 95 02/26/22 23:01 88 25 H 95 02/26/22 23:01 87/61 L 02/26/22 23:00 85 24 96 02/26/22 22:30 80 8 L 96 02/26/22 22:00 78 7 L 96 02/26/22 22:00 104/72 02/26/22 21:30 81 3 L 95 Coding Level of Care Code 81670 Subseq Hosp Care Lvl 2 Diagnoses Anemia due to acute blood loss D62 Rectal bleeding K62.5 Anasarca R60.1 Breast cancer C50.919
[2022-02-27] MEDS: ACETAMINOPHEN 1,000 MG/100 ML VIAL IV PRN (09:20)
[2022-02-27] MEDS ORDERED: LANTUS PER UNIT CHARGE SQ SCH (10:15)
[2022-02-27 13:35] LABS: Hematocrit (blood only) 27.5 % (34.1-44.9); Hemoglobin 9.8 g/dl (12.0-16.0); Mean Corpuscular Hemoglobin 31.8 pg (25.0-34.0); Mean Corpuscular Hgb Conc 35.6 g/dL (32.0-36.0); Mean Corpuscular Volume 89.3 fL (80.0-100.0); Mean Platelet Volume 9.8 fL (9.4-12.3); Platelet Count 129 K/uL (130-400); RDW Coefficient of Variation 16.8 % (11.5-14.5); RDW Standard Deviation 53.6 fL (36.4-46.3); Red Blood Count 3.08 M/uL (3.93-5.22); White Blood Count 9.61 K/ul (4.8-10.8)
--- NOTE | 2022-02-27 13:55 | Pharmacy Report ---
Pharmacy Glycemic Short Note 2 - Date of Service February 27, 2022 - Glycemic Short BSG Results (Last 24 hours): 02/26/22 02/26/22 02/27/22 17:59 23:35 04:20 Glucose 122 H POC Glucose 139 H 134 H 02/27/22 12:08 Glucose POC Glucose 129 H OUTPATIENT ANTIDIABETIC REGIMEN: * Novolog insulin pump * Basal rates: * 8527-0927 = 0.45 units/hr * 6890-9918 = 0.55 units/hr * 4888-7237 = 0.50 units/hr * Total daily basal dose = 12 units/day * Carb Ratio: 15 * Sensitivity Factor: 55 * Goal range: 140-150 mg/dL * HbA1c = 8.7% (02/26/22) * Spoke extensively with patient at bedside on 02/26/22. Reports following with SHIVA El, at [facility] [place]. States she was due for an appointment recently but cancelled due to not feeling well which does appear to be true from the encounters I can see. Reports difficulty with DM management for years, especially recently with diagnosis and subsequent oreilly with cancer. States that basal rates were changed during last visit but cannot remember to what. I interrogated pump settings and found the settings listed above. States provider does not want her BSGs greater than 250 mg/dL. Average BSG at current A1c is 232 mg/dL so patient is likely not meeting this goal. Reports poor appetite in general since cancer diagnosis, especially over the last week. Changes sets every 3 days at home but states she needs to reorder supplies as she only has two sets left. Has not been using CGM as she finds it too difficult to operate. States she checks her BSG via fingerstick 4 times per day: upon wakening/before breakfast, 30-60 minutes after lunch and dinner, and then before bedtime. Instructed her to start checking BSG before all meals and before bedtime. ASSESSMENT: 02/27/22: * Colleen received 6 units of SQ insulin yesterday (Lantus 5 units + Novolog 1 unit) with excellent glycemic control * She remains NPO and on Protonix infusion for rectal bleeding. * Fasting BSG at goal, 122 mg/dL. Will continue current dose of Lantus and reass ess tomorrow. * No change to novolog orders. 02/26/22: * 81 yo F admitted for rectal bleeding and anemia. Pharmacy has been consulted to assist with inpatient glycemic management. On insulin pump as an outpatient which was removed upon presentation to the ED. A1c demonstrates mediocre control of T1DM, would prefer A1c be less than 8% ideally. Patient known to pharmacy glycemic service. Currently NPO. * Spoke with patient extensively at bedside this morning. Retrieved pump settings. Given current NPO status, lack of pump supplies until more are ordered, and unknown procedural status, patient was in agreement to continue with subcutaneous basal-bolus injections to control BSGs while admitted. Will likely transition to pump day of discharge. * BSGs have been good so far: 172-115-155 mg/dL. * Gave the patient 5 units of Lantus x 1 at lunchtime today. Novolog adjusted to reflect previous admission data. Will continue to monitor closely. PLAN FOR INPATIENT GLYCEMIC CONTROL: * Basal insulin * Lantus 5 units SC q24h * Bolus insulin * NovoLog per scale ACHS or Q6hrs while NPO * Goal Range: Low 110 mg/dL - High 140 mg/dL * Correction Factor: 45 mg/dL/unit * Nutritional / Prandial insulin per carb ratio of 1 unit per 15 grams CHO consumed
[2022-02-27] MEDS: MAGNESIUM SULFATE / D5W 1 GM/100 ML BAG IV SCH ×2 (14:15→15:55)
[2022-02-27] MEDS ORDERED: Nursing to Pharmacy Communication SCH (15:15)
--- NOTE | 2022-02-27 17:23 | Hospitalist Progress Note ---
Date of Service February 27, 2022 Assessment & Plan (1) Rectal bleeding: Plan: Rectal bleeding status post resumption of Xarelto after hemorrhoid surgery- Received tranexamic acid from the ED Holding Xarelto Okay to switch pantoprazole back to 40 mg IV twice daily CT A/P with IV contrast Appreciate surgery management with packing placed Advance to clear liquids today - discussed with Dr Butler (2) Anemia due to acute blood loss: Plan: Initial hemoglobin 7.2, repeat 5.5, s/p 4 units packed RBCs -> 9.7 Repeat Hgb this morning 9.7 -> 8.1 -> 7.7. Additional 1 unit packed RBCs given Calcium gluconate, prothrombin complex given (3) Type 1 diabetes: Plan: HbA1C 9.0 in October, current HbA1C not accurate in setting of acute GI bleed Holding insulin pump and Dexcom Appreciate pharmacy consult for glycemic control (4) CAD (coronary artery disease), [place] coronary artery: Plan: CAD/hypertension medications on hold due to relatively low blood pressure secondary to rectal bleeding (5) GERD (gastroesophageal reflux disease): Plan: Changing omeprazole p.o. to pantoprazole IV (6) Diastolic CHF: (7) Deep vein thrombosis (DVT) of right lower extremity: Plan: Xarelto on hold due to rectal bleeding (8) Insulin pump status: (9) Hypothyroidism: Plan: Continue levothyroxine 125 mcg daily (10) Breast cancer: Plan: Stage IV invasive ductal carcinoma. Last chemotherapy (Enhertu) was 4 weeks ago per patient recollection. Unlikely contributing towards current anemia. (11) IPMN (intraductal papillary mucinous neoplasm): Plan Disposition - ok to downgrade to PCU as discussed with Dr Suarez Admission and Anticipated Discharge Date Admission Date: February 26, 2022 Subjective Patient generally feeling better today. No abdominal pain, nausea, vomiting. Desperate for some food. Surgical packing placed in rectum last night. Currently receiving another unit of blood when seen for hemoglobin of 7.7. Much less bleeding per rectum per nursing staff. Review of Systems Review of Systems: All systems reviewed & are unremarkable except as noted in Subjective Physical Exam Constitutional: WD/WN, vitals as above Eyes: + anicteric sclerae; normal pupil size Respiratory: normal respiratory effort, lungs clear to auscultation Cardiovascular: RRR, no murmur, no edema Gastrointestinal (Abdomen): Inspection/Auscultation: abdomen normal to inspection; abdomen not distended Percussion/Palpation: abdomen soft; abdomen nontender, no guarding and abdomen not rigid Skin: no rashes, warm and dry Psychiatric: A+Ox3, euthymic affect Results & Data Results & Data ([facility]) Vital Signs (Past 12 Hours) Vital Signs Temp Pulse Resp BP Pulse Ox 02/27/22 16:01 112 H 21 95 02/27/22 16:01 117/68 02/27/22 16:00 21 93 02/27/22 15:59 133/53 L 02/27/22 15:59 19 94 02/27/22 15:00 25 H 95 02/27/22 14:00 88 14 95 02/27/22 13:00 91 H 22 95 02/27/22 16:06 36.6 C 02/27/22 12:01 87 17 98 02/27/22 12:01 113/75 02/27/22 12:00 90 15 97 02/27/22 11:33 145/44 H 02/27/22 11:33 86 16 97 02/27/22 11:31 92 H 22 77 L 02/27/22 11:01 127/54 L 02/27/22 11:01 84 20 97 02/27/22 11:00 81 20 95 02/27/22 12:49 36.6 C 02/27/22 08:00 95 H 02/27/22 11:32 36.6 C 87 16 145/44 H 96 02/27/22 10:15 36.6 C 83 14 127/61 95 02/27/22 09:15 36.6 C 80 16 117/40 L 95 02/27/22 08:45 36.6 C 86 16 94/55 L 02/27/22 08:30 36.5 C 82 14 124/52 L 02/27/22 08:17 36.7 C 81 14 117/40 L 95 02/27/22 08:00 86 20 97 02/27/22 08:00 107/41 L 02/27/22 07:30 83 15 95 02/27/22 07:01 90 22 96 02/27/22 07:01 124/50 L 02/27/22 07:00 88 18 95 02/27/22 06:30 77 12 95 02/27/22 06:00 84 19 96 02/27/22 06:00 121/47 L 02/27/22 05:30 83 17 95 PG Care Time/CCT Total # of Minutes Spent Total Time Spent with Patient: Total time spent is greater than 50% in coordination of care (as documented) at patient's floor/unit and/or counseling patient: Coding Level of Care Code 94647 Subseq Hosp Care Lvl 3 Diagnoses Rectal bleeding K62.5 Anemia due to acute blood loss D62 Type 1 diabetes E10.9 CAD (coronary artery disease), [place] coronary artery I25.10 GERD (gastroesophageal reflux disease) K21.9 Diastolic CHF I50.30 Deep vein thrombosis (DVT) of right lower extremity I82.401 Insulin pump status Z96.41 Hypothyroidism E03.9 Breast cancer C50.919 IPMN (intraductal papillary mucinous neoplasm) D49.0
[2022-02-27 18:37] LABS: Hematocrit (blood only) 27.2 % (34.1-44.9); Hemoglobin 9.7 g/dl (12.0-16.0)
[2022-02-27] MEDS: ACETAMINOPHEN 325 MG TAB PO PRN (21:00)
[2022-02-27] MEDS: PANTOprazole 40 MG in SYRINGE 0 ML IV SCH (21:01)
[2022-02-28 04:25] LABS: Basophils # (auto) 0.04 K/uL (0-0.2); Basophils % (auto) 0.5 %; Eosinophils # (auto) 0.32 K/uL (0-0.50); Eosinophils % (auto) 3.9 %; Hematocrit (blood only) 26.1 % (34.1-44.9); Hemoglobin 9.2 g/dl (12.0-16.0); Immature Granulocytes # (auto) 0.04 K/uL (0.00-0.02); Immature Granulocytes % (auto) 0.5 %; Lymphocytes # (auto) 1.67 K/uL (1.2-3.4); Lymphocytes % (auto) 20.6 %; Mean Corpuscular Hemoglobin 31.6 pg (25.0-34.0); Mean Corpuscular Hgb Conc 35.2 g/dL (32.0-36.0); Mean Corpuscular Volume 89.7 fL (80.0-100.0); Mean Platelet Volume 9.3 fL (9.4-12.3); Monocytes % (auto) 11.1 %; Neutrophils # (auto) 5.14 K/uL (1.4-6.5); Neutrophils % (auto) 63.4 %; Platelet Count 147 K/uL (130-400); RDW Coefficient of Variation 17.3 % (11.5-14.5); Red Blood Count 2.91 M/uL (3.93-5.22); White Blood Count 8.11 K/ul (4.8-10.8)
[2022-02-28 04:51] LABS: Albumin Level 2.2 gm/dl (3.4-5.0); BUN Creatinine Ratio 21.7 (10-20); Calcium 7.7 mg/dl (8.5-10.1); Creatinine Clr Calc Pharmacy 37.7 ml/min; Est GFR (African American) 49.1 ml/min; Est GFR (Non-African American) 42.4 ml/min; Magnesium 1.7 mg/dl (1.7-2.4); Phosphorus 3.2 mg/dl (2.5-4.9); Potassium 4.6 mmol/L (3.5-5.1)
[2022-02-28] MEDS: cefTRIAXone SODIUM 2,000 MG in DEXTROSE 5% 50 ML IV SCH (06:00)
[2022-02-28] MEDS: INSULIN ASPART PER UNIT SC SCH ×4 (08:31→20:45)
[2022-02-28] MEDS: PANTOprazole 40 MG in SYRINGE 0 ML IV SCH (08:32)
[2022-02-28] MEDS ORDERED: LANTUS PER UNIT CHARGE SQ SCH (09:00)
--- NOTE | 2022-02-28 09:27 | Surgery Progress Note ---
Date of Service February 28, 2022 Assessment & Plan (1) Rectal bleeding: Plan: H&H stable overnight advance diet as rex continue to hold anticoagulation seen with Dr. Butler Admission and Anticipated Discharge Date Admission Date: February 26, 2022 Subjective no further bleeding, started on diet Physical Exam Constitutional: WD/WN, vitals as above Results & Data ([facility]) Vital Signs (Past 12 Hours) Vital Signs Temp Pulse Resp BP Pulse Ox Pulse Ox O2 Del Method 02/28/22 08:00 36.8 C 95 H 20 96/80 L 95 Room Air 02/28/22 04:00 36.9 C 75 18 110/46 L 95 Room Air 02/28/22 02:00 94 O2 Del Method 02/28/22 08:00 02/28/22 04:00 02/28/22 02:00 Room Air PG Care Time/CCT Total # of Minutes Spent Total Time Spent with Patient: Total time spent is greater than 50% in coordination of care (as documented) at patient's floor/unit and/or counseling patient: Coding Level of Care Code 92663 Subseq Hosp Care Lvl 1 Diagnoses Rectal bleeding K62.5
[2022-02-28] MEDS: ACETAMINOPHEN 325 MG TAB PO PRN (13:10)
--- NOTE | 2022-02-28 15:13 | Hospitalist Progress Note ---
Date of Service February 28, 2022 Assessment & Plan (1) Rectal bleeding: Plan: Rectal bleeding status post resumption of Xarelto after hemorrhoid surgery- Holding Xarelto Switch pantoprazole 40mg IV -> PO BID CT A/P with IV contrast - nonspecific proctitis (continue ceftriaxone for 5 days for prophylactic coverage) Appreciate surgery management with packing placed Advanced to regular diet (2) Anemia due to acute blood loss: Plan: Initial hemoglobin 7.2, repeat 5.5, s/p 4 units packed RBCs -> 9.7 Repeat Hgb [02/27] 8.1 -> 7.7. s/p 1 packed RBCs s/p prothrombin complex concentrate (3) Type 1 diabetes: Plan: HbA1C 9.0 in October, current HbA1C not accurate in setting of acute GI bleed Holding insulin pump and Dexcom Appreciate pharmacy consult for glycemic control (4) CAD (coronary artery disease), [place] coronary artery: Plan: CAD/hypertension medications on hold due to relatively low blood pressure secondary to rectal bleeding (5) GERD (gastroesophageal reflux disease): Plan: PPI as above (6) Diastolic CHF: (7) Deep vein thrombosis (DVT) of right lower extremity: Plan: Xarelto on hold due to rectal bleeding (8) Insulin pump status: (9) Hypothyroidism: Plan: Continue levothyroxine 125 mcg daily (10) Breast cancer: Plan: Stage IV invasive ductal carcinoma. Last chemotherapy (Enhertu) was 4 weeks ago per patient recollection. Unlikely contributing towards current anemia. (11) IPMN (intraductal papillary mucinous neoplasm): Plan VTE Prophylaxis - SCDs, chemical prophylaxis contraindicated in setting of sever GI bleed Diet - T2DM, heart healthy Disposition - stable for downgrade to med/surg, PT/OT ordered. Admission and Anticipated Discharge Date Admission Date: February 26, 2022 Subjective Tolerating clear liquid diet. No further bleeding. No nausea, vomiting. No abdominal pain. Hemoglobin stable at 9.2 this morning. No chest pain, shortness of breath or dizziness. Review of Systems Review of Systems: All systems reviewed & are unremarkable except as noted in Subjective Physical Exam Constitutional: WD/WN, vitals as above Eyes: + anicteric sclerae; normal pupil size Respiratory: normal respiratory effort, lungs clear to auscultation Cardiovascular: RRR, no murmur, no edema Gastrointestinal (Abdomen): Inspection/Auscultation: abdomen normal to inspection; abdomen not distended Percussion/Palpation: abdomen soft; abdomen nontender, no guarding and abdomen not rigid Skin: no rashes, warm and dry Psychiatric: A+Ox3, euthymic affect Results & Data Results & Data ([facility]) Vital Signs (Past 12 Hours) Vital Signs Temp Pulse Resp BP Pulse Ox O2 Del Method 02/28/22 08:00 36.8 C 95 H 20 96/80 L 95 Room Air 02/28/22 04:00 36.9 C 75 18 110/46 L 95 Room Air PG Care Time/CCT Total # of Minutes Spent Total Time Spent with Patient: Total time spent is greater than 50% in coordination of care (as documented) at patient's floor/unit and/or counseling patient: Coding Level of Care Code 02770 Subseq Hosp Care Lvl 2 Diagnoses Rectal bleeding K62.5 Anemia due to acute blood loss D62 Type 1 diabetes E10.9 CAD (coronary artery disease), [place] coronary artery I25.10 GERD (gastroesophageal reflux disease) K21.9 Diastolic CHF I50.30 Deep vein thrombosis (DVT) of right lower extremity I82.401 Insulin pump status Z96.41 Hypothyroidism E03.9 Breast cancer C50.919 IPMN (intraductal papillary mucinous neoplasm) D49.0
[2022-02-28] MEDS: MAGNESIUM SULFATE / D5W 1 GM/100 ML BAG IV SCH ×2 (18:10→20:10)
[2022-02-28] MEDS: METOPROLOL SUCC 25MG EXT REL TAB PO SCH (20:42)
[2022-02-28] MEDS: PANTOprazole 40 MG TAB PO SCH (20:42)
[2022-02-28] MEDS: MAGNESIUM OXIDE 400 MG TAB PO SCH (20:42)
[2022-02-28] MEDS: HEPARIN 100 UNIT/ML 5ML FLUSH FLUSH PRN (22:10)
[2022-03-01] MEDS: ACETAMINOPHEN 325 MG TAB PO PRN ×3 (05:33→18:46)
[2022-03-01] MEDS: LEVOTHYROXINE SODIUM 125 MCG TABLET PO SCH (05:33)
[2022-03-01] MEDS: cefTRIAXone SODIUM 2,000 MG in DEXTROSE 5% 50 ML IV SCH (05:52)
--- NOTE | 2022-03-01 06:58 | Surgery Progress Note ---
Date of Service March 01, 2022 Assessment & Plan (1) Rectal bleeding: Plan: 03/01/22 laboratory this morning is pending We will continue holding Xarelto at this time If hemoglobin stable today and tomorrow and no evidence of any bloody drainage per rectum then okay to resume Xarelto on 03/03/2022 H&H stable overnight advance diet as rex continue to hold anticoagulation seen with Dr. Butler Admission and Anticipated Discharge Date Admission Date: February 26, 2022 Subjective Has some discomfort in the anal area although improved She had a small bowel movement with minimal discomfort She states she does not seem to have a lot of bleeding as she had before may be just a little drainage Results & Data ([facility]) Vital Signs (Past 12 Hours) Vital Signs Temp Pulse Resp BP Pulse Ox O2 Del Method 02/28/22 20:35 36.4 C L 92 H 18 120/75 93 Room Air PG Care Time/CCT Total # of Minutes Spent Total Time Spent with Patient: Total time spent is greater than 50% in coordination of care (as documented) at patient's floor/unit and/or counseling patient: Coding Level of Care Code 74139 Subseq Hosp Care Lvl 3 Diagnoses Rectal bleeding K62.5
[2022-03-01 08:55] LABS: Basophils # (auto) 0.03 K/uL (0-0.2); Basophils % (auto) 0.3 %; Eosinophils # (auto) 0.38 K/uL (0-0.50); Eosinophils % (auto) 4.1 %; Hematocrit (blood only) 27.4 % (34.1-44.9); Hemoglobin 9.6 g/dl (12.0-16.0); Immature Granulocytes # (auto) 0.05 K/uL (0.00-0.02); Immature Granulocytes % (auto) 0.5 %; Lymphocytes # (auto) 1.85 K/uL (1.2-3.4); Lymphocytes % (auto) 20.1 %; Mean Corpuscular Hemoglobin 31.6 pg (25.0-34.0); Mean Corpuscular Volume 90.1 fL (80.0-100.0); Mean Platelet Volume 9.4 fL (9.4-12.3); Monocytes # (auto) 1.07 K/uL (0.24-0.82); Monocytes % (auto) 11.6 %; Neutrophils # (auto) 5.83 K/uL (1.4-6.5); Neutrophils % (auto) 63.4 %; Platelet Count 189 K/uL (130-400); RDW Coefficient of Variation 17.3 % (11.5-14.5); RDW Standard Deviation 56.1 fL (36.4-46.3); Red Blood Count 3.04 M/uL (3.93-5.22); White Blood Count 9.21 K/ul (4.8-10.8)
[2022-03-01] MEDS: MAGNESIUM OXIDE 400 MG TAB PO SCH ×2 (08:59→20:25)
[2022-03-01] MEDS: PANTOprazole 40 MG TAB PO SCH ×2 (08:59→20:25)
[2022-03-01] MEDS: CHOLECALCIFEROL 5,000 UNITS 125 MCG TAB PO SCH (08:59)
[2022-03-01] MEDS ORDERED: LANTUS PER UNIT CHARGE SQ SCH (09:00)
[2022-03-01] MEDS: INSULIN ASPART PER UNIT SC SCH ×4 (09:00→20:52)
[2022-03-01 09:19] LABS: Albumin Globulin Ratio 1.2 (0.9-2); Albumin Level 2.3 gm/dl (3.4-5.0); BUN Creatinine Ratio 19.1 (10-20); Bilirubin,Total 0.7 mg/dl (0.2-1.0); Calcium 7.7 mg/dl (8.5-10.1); Creatinine Clr Calc Pharmacy 41.2 ml/min; Est GFR (African American) 54.5 ml/min; Globulin 1.9 gm/dl (2.5-4.0); Magnesium 1.9 mg/dl (1.7-2.4); Potassium 4.5 mmol/L (3.5-5.1); Total Protein 4.2 gm/dl (6.0-8.3)
--- NOTE | 2022-03-01 10:07 | Pharmacy Report ---
Pharmacy Glycemic Short Note 2 - Date of Service March 01, 2022 - Glycemic Short BSG Results (Last 24 hours): 02/28/22 02/28/22 02/28/22 11:47 17:23 20:34 Glucose POC Glucose 99 79 154 H 03/01/22 03/01/22 08:12 08:33 Glucose 85 POC Glucose 87 OUTPATIENT ANTIDIABETIC REGIMEN: * Novolog insulin pump * Basal rates: * 5933-1774 = 0.45 units/hr * 3416-1309 = 0.55 units/hr * 8508-7870 = 0.50 units/hr * Total daily basal dose = 12 units/day * Carb Ratio: 15 * Sensitivity Factor: 55 * Goal range: 140-150 mg/dL * HbA1c = 8.7% (02/26/22) * Spoke extensively with patient at bedside on 02/26/22. Reports following with SHIVA El, at [facility]. States she was due for an appointment recently but cancelled due to not feeling well which does appear to be true from the encounters I can see. Reports difficulty with DM management for years, especially recently with diagnosis and subsequent orielly with cancer. States that basal rates were changed during last visit but cannot remember to what. I interrogated pump settings and found the settings listed above. States provider does not want her BSGs greater than 250 mg/dL. Average BSG at current A1c is 232 mg/dL so patient is likely not meeting this goal. Reports poor appetite in general since cancer diagnosis, especially over the last week. Changes sets every 3 days at home but states she needs to reorder supplies as she only has two sets left. Has not been using CGM as she finds it too difficult to operate. States she checks her BSG via fingerstick 4 times per day: upon wakening/before breakfast, 30-60 minutes after lunch and dinner, and then before bedtime. Instructed her to start checking BSG before all meals and before bedtime. ASSESSMENT: 03/01/22: * Yesterday, pt was well-controlled on 6 units of lantus QAM + 45 CF 15 CR bolus insulin. * POC BSG's largely within goal range but downtrending from previous days, most notably 79 mg/dL at dinner on 02/28 and 87 mg/dL fasting on 03/01. * Will maintain bolus regimen and slightly reduce basal dose of Lantus from 6 units to 5 units to minimize risk of hypoglycemia. 02/27/22: * Colleen received 6 units of SQ insulin yesterday (Lantus 5 units + Novolog 1 unit) with excellent glycemic control * She remains NPO and on Protonix infusion for rectal bleeding. * Fasting BSG at goal, 122 mg/dL. Will continue current dose of Lantus and reassess tomorrow. * No change to novolog orders. 02/26/22: * 81 yo F admitted for rectal bleeding and anemia. Pharmacy has been consulted to assist with inpatient glycemic management. On insulin pump as an outpatient which was removed upon presentation to the ED. A1c demonstrates mediocre control of T1DM, would prefer A1c be less than 8% ideally. Patient known to [facility] glycemic service. Currently NPO. * Spoke with patient extensively at bedside this morning. Retrieved pump settings. Given current NPO status, lack of pump supplies until more are ordered, and unknown procedural status, patient was in agreement to continue with subcutaneous basal-bolus injections to control BSGs while admitted. Will likely transition to pump day of discharge. * BSGs have been good so far: 172-115-155 mg/dL. * Gave the patient 5 units of Lantus x 1 at lunchtime today. Novolog adjusted to reflect previous admission data. Will continue to monitor closely. PLAN FOR INPATIENT GLYCEMIC CONTROL: * Basal insulin * Lantus 5 units SC q24h * Bolus insulin * NovoLog per scale ACHS or Q6hrs while NPO * Goal Range: Low 110 mg/dL - High 140 mg/dL * Correction Factor: 45 mg/dL/unit * Nutritional / Prandial insulin per carb ratio of 1 unit per 15 grams CHO consumed
[2022-03-01] MEDS: PSYLLIUM or GUAR GUM FIBER POWDER PACKET PO SCH (10:38)
--- NOTE | 2022-03-01 18:39 | Hospitalist Progress Note ---
Date of Service March 01, 2022 Assessment & Plan (1) Rectal bleeding: Plan: Rectal bleeding status post resumption of Xarelto after hemorrhoid surgery- Holding Xarelto Switch pantoprazole 40mg IV -> PO BID CT A/P with IV contrast - nonspecific proctitis (continue ceftriaxone for 5 days for prophylactic coverage) Appreciate surgery management with packing placed Advanced to regular diet (2) Anemia due to acute blood loss: Plan: Initial hemoglobin 7.2, repeat 5.5, s/p 4 units packed RBCs -> 9.7 Repeat Hgb [02/27] 8.1 -> 7.7. s/p 1 packed RBCs s/p prothrombin complex concentrate (3) Type 1 diabetes: Plan: HbA1C 9.0 in October, current HbA1C not accurate in setting of acute GI bleed Holding insulin pump and Dexcom Appreciate pharmacy consult for glycemic control (4) CAD (coronary artery disease), [place] coronary artery: Plan: CAD/hypertension medications on hold due to relatively low blood pressure secondary to rectal bleeding (5) GERD (gastroesophageal reflux disease): Plan: PPI as above (6) Diastolic CHF: (7) Deep vein thrombosis (DVT) of right lower extremity: Plan: Xarelto on hold due to rectal bleeding (8) Insulin pump status: (9) Hypothyroidism: Plan: Continue levothyroxine 125 mcg daily (10) Breast cancer: Plan: Stage IV invasive ductal carcinoma. Last chemotherapy (Enhertu) was 4 weeks ago per patient recollection. Unlikely contributing towards current anemia. (11) IPMN (intraductal papillary mucinous neoplasm): Plan VTE Prophylaxis - SCDs, chemical prophylaxis contraindicated in setting of severe GI bleed Diet - T2DM, heart healthy Disposition - medically stable for discharge Admission and Anticipated Discharge Date Admission Date: February 26, 2022 Subjective Back pain on standing up today. No BM since blood loss. No nausea or vomiting. Tolerating regular diet. Planning on rehab on discharge. Review of Systems Review of Systems: All systems reviewed & are unremarkable except as noted in Subjective Physical Exam Constitutional: WD/WN, vitals as above Eyes: + anicteric sclerae; normal pupil size Respiratory: normal respiratory effort, lungs clear to auscultation Cardiovascular: RRR, no murmur, no edema Gastrointestinal (Abdomen): Inspection/Auscultation: abdomen normal to inspection; abdomen not distended Percussion/Palpation: + abdomen tender (right sided) and abdomen soft; no guarding and abdomen not rigid Skin: no rashes, warm and dry Psychiatric: A+Ox3, euthymic affect Results & Data Results & Data ([facility]) Vital Signs (Past 12 Hours) Vital Signs Temp Pulse Resp BP Pulse Ox O2 Del Method 03/01/22 15:58 36.7 C 84 18 153/75 H 95 Room Air 03/01/22 07:36 36.4 C L 70 18 115/54 L 94 Room Air PG Care Time/CCT Total # of Minutes Spent Total Time Spent with Patient: Total time spent is greater than 50% in coordination of care (as documented) at patient's floor/unit and/or counseling patient: Coding Level of Care Code 31300 Subseq Hosp Care Lvl 2 Diagnoses Rectal bleeding K62.5 Anemia due to acute blood loss D62 Type 1 diabetes E10.9 CAD (coronary artery disease), [place] coronary artery I25.10 GERD (gastroesophageal reflux disease) K21.9 Diastolic CHF I50.30 Deep vein thrombosis (DVT) of right lower extremity I82.401 Insulin pump status Z96.41 Hypothyroidism E03.9 Breast cancer C50.919 IPMN (intraductal papillary mucinous neoplasm) D49.0
[2022-03-01] MEDS: METOPROLOL SUCC 25MG EXT REL TAB PO SCH (20:25)
[2022-03-02] MEDS: ACETAMINOPHEN 325 MG TAB PO PRN ×3 (01:01→20:50)
[2022-03-02] MEDS: cefTRIAXone SODIUM 2,000 MG in DEXTROSE 5% 50 ML IV SCH (05:15)
[2022-03-02] MEDS: LEVOTHYROXINE SODIUM 125 MCG TABLET PO SCH (05:39)
[2022-03-02 06:05] LABS: Basophils # (auto) 0.04 K/uL (0-0.2); Basophils % (auto) 0.4 %; Eosinophils # (auto) 0.57 K/uL (0-0.50); Eosinophils % (auto) 5.9 %; Hematocrit (blood only) 26.8 % (34.1-44.9); Hemoglobin 9.1 g/dl (12.0-16.0); Immature Granulocytes # (auto) 0.05 K/uL (0.00-0.02); Immature Granulocytes % (auto) 0.5 %; Lymphocytes # (auto) 2.25 K/uL (1.2-3.4); Lymphocytes % (auto) 23.1 %; Mean Corpuscular Hemoglobin 31.5 pg (25.0-34.0); Mean Corpuscular Volume 92.7 fL (80.0-100.0); Monocytes # (auto) 1.07 K/uL (0.24-0.82); Neutrophils # (auto) 5.75 K/uL (1.4-6.5); Neutrophils % (auto) 59.1 %; Platelet Count 203 K/uL (130-400); RDW Coefficient of Variation 17.5 % (11.5-14.5); RDW Standard Deviation 58.3 fL (36.4-46.3); Red Blood Count 2.89 M/uL (3.93-5.22); White Blood Count 9.73 K/ul (4.8-10.8)
[2022-03-02 06:28] LABS: BUN Creatinine Ratio 20.2 (10-20); Calcium 7.7 mg/dl (8.5-10.1); Creatinine Clr Calc Pharmacy 41.5 ml/min; Est GFR (African American) 55.1 ml/min; Est GFR (Non-African American) 47.6 ml/min; Potassium 4.7 mmol/L (3.5-5.1)
[2022-03-02] MEDS: PANTOprazole 40 MG TAB PO SCH ×2 (07:47→20:48)
[2022-03-02] MEDS: MAGNESIUM OXIDE 400 MG TAB PO SCH ×2 (07:47→20:48)
[2022-03-02] MEDS: CHOLECALCIFEROL 5,000 UNITS 125 MCG TAB PO SCH (07:48)
[2022-03-02] MEDS: PSYLLIUM or GUAR GUM FIBER POWDER PACKET PO SCH (09:09)
[2022-03-02] MEDS: LANTUS PER UNIT CHARGE SQ SCH (09:21)
[2022-03-02] MEDS: INSULIN ASPART PER UNIT SC SCH ×4 (09:21→20:49)
[2022-03-02] MEDS: HEPARIN 100 UNIT/ML 5ML FLUSH FLUSH PRN (09:55)
[2022-03-02] MEDS: METOPROLOL SUCC 25MG EXT REL TAB PO SCH (20:47)
--- NOTE | 2022-03-02 20:53 | Hospitalist Progress Note ---
Date of Service March 02, 2022 Assessment & Plan (1) Rectal bleeding: Plan: Rectal bleeding status post resumption of Xarelto after hemorrhoid surgery- Holding Xarelto, consider restarting tomorrow per surgery recommendations Switched pantoprazole 40mg IV -> PO BID CT A/P with IV contrast - nonspecific proctitis (continue ceftriaxone for 5 days for prophylactic coverage) Appreciate surgery management with packing placed Advanced to regular diet (2) Anemia due to acute blood loss: Plan: Initial hemoglobin 7.2, repeat 5.5, s/p 4 units packed RBCs -> 9.7 Repeat Hgb [02/27] 8.1 -> 7.7. s/p 1 packed RBCs Hgb 9.1 today - appears to be stable (3) Type 1 diabetes: Plan: HbA1C 9.0 in October, current HbA1C not accurate in setting of acute GI bleed Holding insulin pump and Dexcom Appreciate pharmacy consult for glycemic control - planning on continuing basal bolus insulin at [facility] as she is lacking supplies for her pump at this time. (4) CAD (coronary artery disease), [place] coronary artery: Plan: CAD/hypertension medications on hold due to relatively low blood pressure secondary to rectal bleeding (5) GERD (gastroesophageal reflux disease): Plan: PPI as above (6) Diastolic CHF: (7) Deep vein thrombosis (DVT) of right lower extremity: Plan: Xarelto on hold due to rectal bleeding (8) Insulin pump status: (9) Hypothyroidism: Plan: Continue levothyroxine 125 mcg daily (10) Breast cancer: Plan: Stage IV invasive ductal carcinoma. Last chemotherapy (Enhertu) was 4 weeks ago per patient recollection. Unlikely contributing towards current anemia. (11) IPMN (intraductal papillary mucinous neoplasm): Plan VTE Prophylaxis - SCDs, chemical prophylaxis contraindicated in setting of severe GI bleed Diet - T2DM, heart healthy Disposition - medically stable for discharge Admission and Anticipated Discharge Date Admission Date: February 26, 2022 Subjective Had 2 hours of feeling of fullness around her rectal area today but appeared to pass without intervention. Occasional cramping pains but generally doing well. Awaiting placement at this time. Review of Systems Review of Systems: All systems reviewed & are unremarkable except as noted in Subjective Physical Exam Constitutional: WD/WN, vitals as above Eyes: + anicteric sclerae; normal pupil size Respiratory: normal respiratory effort, lungs clear to auscultation Cardiovascular: RRR, no murmur, no edema Gastrointestinal (Abdomen): Inspection/Auscultation: abdomen normal to inspection; abdomen not distended Percussion/Palpation: abdomen soft; abdomen nontender, no guarding and abdomen not rigid Skin: no rashes, warm and dry Psychiatric: A+Ox3, euthymic affect Results & Data Results & Data ([facility]) Vital Signs (Past 12 Hours) Vital Signs Temp Pulse Resp BP Pulse Ox O2 Del Method 03/02/22 20:37 36.8 C 95 H 18 158/78 H 93 Room Air 03/02/22 15:44 37 C 84 18 136/64 97 Room Air PG Care Time/CCT Total # of Minutes Spent Total Time Spent with Patient: Total time spent is greater than 50% in coordination of care (as documented) at patient's floor/unit and/or counseling patient: Coding Level of Care Code 56589 Subseq Hosp Care Lvl 1 Diagnoses Rectal bleeding K62.5 Anemia due to acute blood loss D62 Type 1 diabetes E10.9 CAD (coronary artery disease), [place] coronary artery I25.10 GERD (gastroesophageal reflux disease) K21.9 Diastolic CHF I50.30 Deep vein thrombosis (DVT) of right lower extremity I82.401 Insulin pump status Z96.41 Hypothyroidism E03.9 Breast cancer C50.919 IPMN (intraductal papillary mucinous neoplasm) D49.0
[2022-03-03] MEDS: LEVOTHYROXINE SODIUM 125 MCG TABLET PO SCH (05:32)
[2022-03-03] MEDS: ACETAMINOPHEN 325 MG TAB PO PRN ×4 (05:40→20:38)
[2022-03-03 06:33] LABS: Basophils # (auto) 0.06 K/uL (0-0.2); Basophils % (auto) 0.5 %; Eosinophils # (auto) 0.44 K/uL (0-0.50); Eosinophils % (auto) 3.3 %; Hematocrit (blood only) 29.4 % (34.1-44.9); Hemoglobin 9.9 g/dl (12.0-16.0); Immature Granulocytes # (auto) 0.06 K/uL (0.00-0.02); Immature Granulocytes % (auto) 0.5 %; Lymphocytes # (auto) 3.17 K/uL (1.2-3.4); Mean Corpuscular Hemoglobin 31.4 pg (25.0-34.0); Mean Corpuscular Hgb Conc 33.7 g/dL (32.0-36.0); Mean Corpuscular Volume 93.3 fL (80.0-100.0); Mean Platelet Volume 9.4 fL (9.4-12.3); Monocytes # (auto) 1.38 K/uL (0.24-0.82); Monocytes % (auto) 10.5 %; Neutrophils # (auto) 8.09 K/uL (1.4-6.5); Neutrophils % (auto) 61.2 %; Platelet Count 272 K/uL (130-400); RDW Coefficient of Variation 17.5 % (11.5-14.5); RDW Standard Deviation 58.5 fL (36.4-46.3); Red Blood Count 3.15 M/uL (3.93-5.22)
[2022-03-03] MEDS: MAGNESIUM OXIDE 400 MG TAB PO SCH ×2 (08:03→20:37)
[2022-03-03] MEDS: PSYLLIUM or GUAR GUM FIBER POWDER PACKET PO SCH (08:03)
[2022-03-03] MEDS: CHOLECALCIFEROL 5,000 UNITS 125 MCG TAB PO SCH (08:03)
[2022-03-03] MEDS: PANTOprazole 40 MG TAB PO SCH ×2 (08:03→20:37)
[2022-03-03] MEDS: INSULIN ASPART PER UNIT SC SCH ×4 (08:58→20:31)
[2022-03-03] MEDS: LANTUS PER UNIT CHARGE SQ SCH (08:59)
--- NOTE | 2022-03-03 13:27 | Pharmacy Report ---
Pharmacy Glycemic Short Note 2 - Date of Service March 03, 2022 - Glycemic Short BSG Results (Last 24 hours): 03/02/22 03/02/22 03/03/22 17:07 20:33 08:02 POC Glucose 178 H 161 H 158 H 03/03/22 12:14 POC Glucose 201 H OUTPATIENT ANTIDIABETIC REGIMEN: * Novolog insulin pump * Basal rates: * 6130-2193 = 0.45 units/hr * 2350-9590 = 0.55 units/hr * 1546-7618 = 0.50 units/hr * Total daily basal dose = 12 units/day * Carb Ratio: 15 * Sensitivity Factor: 55 * Goal range: 140-150 mg/dL * HbA1c = 8.7% (02/26/22) * Spoke extensively with patient at bedside on 02/26/22. Reports following with Karolina MckeonorSHIVA, at [facility] Endocrinology. States she was due for an appointment recently but cancelled due to not feeling well which does appear to be true from the encounters I can see. Reports difficulty with DM management for years, especially recently with diagnosis and subsequent oreilly with cancer. States that basal rates were changed during last visit but cannot remember to what. I interrogated pump settings and found the settings listed above. States provider does not want her BSGs greater than 250 mg/dL. Average BSG at current A1c is 232 mg/dL so patient is likely not meeting this goal. Reports poor appetite in general since cancer diagnosis, especially over the last week. Changes sets every 3 days at home but states she needs to reorder supplies as she only has two sets left. Has not been using CGM as she finds it too difficult to operate. States she checks her BSG via fingerstick 4 times per day: upon wakening/before breakfast, 30-60 minutes after lunch and dinner, and then before bedtime. Instructed her to start checking BSG before all meals and before bedtime. ASSESSMENT: 03/03/22 * Patient's BSGs yesterday were [id number] mg/dL. Patient received 16 units of insulin (6 units of basal and 10 units of bolus). * BSGs today are 158-201 mg/dL. * Fastings are steady above 140 mg/dL. Will have scale for tomorrow in case fastings trend higher. * Tighten CR since lunch significantly elevated. 03/01/22: * Yesterday, pt was well-controlled on 6 units of lantus QAM + 45 CF 15 CR bolus insulin. * POC BSG's largely within goal range but downtrending from previous days, most notably 79 mg/dL at dinner on 02/28 and 87 mg/dL fasting on 03/01. * Will maintain bolus regimen and slightly reduce basal dose of Lantus from 6 units to 5 units to minimize risk of hypoglycemia. 02/27/22: * Colleen received 6 units of SQ insulin yesterday (Lantus 5 units + Novolog 1 unit) with excellent glycemic control * She remains NPO and on Protonix infusion for rectal bleeding. * Fasting BSG at goal, 122 mg/dL. Will continue current dose of Lantus and reassess tomorrow. * No change to novolog orders. 02/26/22: * 81 yo F admitted for rectal bleeding and anemia. Pharmacy has been consulted to assist with inpatient glycemic management. On insulin pump as an outpatient which was removed upon presentation to the ED. A1c demonstrates mediocre control of T1DM, would prefer A1c be less than 8% ideally. Patient known to pharmacy glycemic service. Currently NPO. * Spoke with patient extensively at bedside this morning. Retrieved pump settings. Given current NPO status, lack of pump supplies until more are ordered, and unknown procedural status, patient was in agreement to continue with subcutaneous basal-bolus injections to control BSGs while admitted. Will likely transition to pump day of discharge. * BSGs have been good so far: 172-115-155 mg/dL. * Gave the patient 5 units of Lantus x 1 at lunchtime today. Novolog adjusted to reflect previous admission data. Will continue to monitor closely. PLAN FOR INPATIENT GLYCEMIC CONTROL: * Basal insulin * Lantus 6 units SC q24h (7 units if BSG > 150 mg/dL) * Bolus insulin * NovoLog per scale ACHS or Q6hrs while NPO * Goal Range: Low 110 mg/dL - High 140 mg/dL * Correction Factor: 45 mg/dL/unit * Nutritional / Prandial insulin per carb ratio of 1 unit per 12 grams CHO consumed
--- NOTE | 2022-03-03 14:20 | Hospitalist Progress Note ---
Date of Service March 03, 2022 Assessment & Plan (1) Rectal bleeding: Plan: Rectal bleeding occurred postoperatively after resumption of Xarelto after hemorrhoid surgery. She states she still is having some intermittent small amounts of bleeding at the surgery site. Xarelto will remain on hold. CT A/P with IV contrast - nonspecific proctitis (continue ceftriaxone for 5 days for prophylactic coverage). Appreciate surgery management with packing placed (2) Anemia due to acute blood loss: Plan: She has received at least 5 units of packed red blood cells this admission. Hemoglobin is currently stable at 9.9. Will follow. (3) Type 1 diabetes: Plan: HbA1C 9.0 in October. Holding insulin pump and Dexcom. Appreciate pharmacy consult for glycemic control - planning on continuing basal bolus insulin at [facility] as she is lacking supplies for her pump at this time. (4) CAD (coronary artery disease), [place] coronary artery: Plan: Stable. Medical management (5) GERD (gastroesophageal reflux disease): Plan: PPI therapy (6) Diastolic CHF: Plan: Stable. Monitor intake and output. Medical management (7) Deep vein thrombosis (DVT) of right lower extremity: Plan: History of. Xarelto on hold due to rectal bleeding (8) Insulin pump status: Plan: Pump has been deactivated. She is on basal bolus insulin at this time (9) Hypothyroidism: Plan: Continue levothyroxine 125 mcg daily. Stable (10) Breast cancer: Plan: Stage IV invasive ductal carcinoma. Last chemotherapy (Enhertu) was 4 weeks ago per patient recollection. Unlikely contributing towards current anemia. (11) IPMN (intraductal papillary mucinous neoplasm): Plan: See above Plan VTE Prophylaxis - SCDs, chemical prophylaxis contraindicated in setting of severe GI bleed Diet - T2DM, heart healthy Disposition - SNF at discharge. Admission and Anticipated Discharge Date Admission Date: February 26, 2022 Subjective Alert and oriented. No acute problems. She does state that she has intermittent hemorrhoidal bleeding. Xarelto will not be restarted at this time. She takes it for her past history of DVT. Review of Systems Review of Systems: Constitutional-no fever or chills ENT-no blurred vision, no double vision, no epistaxis, no sore throat Respiratory-no cough, no wheezing, no shortness of breath Cardiac-no palpitations, no chest pain, no syncope GI-no nausea, vomiting, diarrhea, melena, hematochezia. She does have intermitt ent small amounts of bleeding after her hemorrhoidal surgery -no urinary retention, no urinary incontinence, no dysuria, no hematuria Musculoskeletal-no joint pain, no muscle tenderness Skin-no bruising, no rashes, no pruritus Neuro-no isolated weakness, no paresthesia, no weakness Psych-no depression, no anxiety Physical Exam Physical Exam: General-alert and oriented x3, no fevers, no chills HEENT-head atraumatic and normocephalic, pupils equal and reactive to light, extraocular muscles intact Neck-no lymphadenopathy or thyromegaly, trachea midline Chest-clear to auscultation percussion. No rales wheezing or rhonchi Cardiac-regular rate and rhythm, normal S1 and S2, no murmurs Abdomen-normal bowel sounds, nontender, no hepatosplenomegaly Extremities-no cyanosis, clubbing, or edema Neuro-cranial nerves II through XII intact, motor and sensory function within normal limits, strength symmetrical , no focal deficits Psych-normal affect, normal mood Results & Data Results & Data ([facility]) Vital Signs (Past 12 Hours) Vital Signs Temp Pulse Resp BP Pulse Ox O2 Del Method 03/03/22 07:07 36.6 C 80 16 129/69 91 Room Air Laboratory Results 03/03/22 05:37 03/02/22 05:44 PG Care Time/CCT Total # of Minutes Spent Total Time Spent with Patient: Total time spent is greater than 50% in coordination of care (as documented) at patient's floor/unit and/or counseling patient: Coding Level of Care Code 61381 Subseq Hosp Care Lvl 3 Diagnoses Rectal bleeding K62.5 Anemia due to acute blood loss D62 Type 1 diabetes E10.9 CAD (coronary artery disease), [place] coronary artery I25.10 GERD (gastroesophageal reflux disease) K21.9 Diastolic CHF I50.30 Deep vein thrombosis (DVT) of right lower extremity I82.401 Insulin pump status Z96.41 Hypothyroidism E03.9 Breast cancer C50.919 IPMN (intraductal papillary mucinous neoplasm) D49.0
[2022-03-03] MEDS: METOPROLOL SUCC 25MG EXT REL TAB PO SCH (20:36)
[2022-03-04] MEDS: ACETAMINOPHEN 325 MG TAB PO PRN ×3 (02:02→10:41)
[2022-03-04] MEDS: LEVOTHYROXINE SODIUM 125 MCG TABLET PO SCH (05:32)
[2022-03-04] MEDS: HEPARIN 100 UNIT/ML 5ML FLUSH FLUSH PRN (06:13)
[2022-03-04 06:52] LABS: Basophils # (auto) 0.04 K/uL (0-0.2); Basophils % (auto) 0.4 %; Eosinophils # (auto) 0.54 K/uL (0-0.50); Eosinophils % (auto) 5.6 %; Hematocrit (blood only) 27.2 % (34.1-44.9); Immature Granulocytes # (auto) 0.03 K/uL (0.00-0.02); Immature Granulocytes % (auto) 0.3 %; Lymphocytes # (auto) 2.32 K/uL (1.2-3.4); Lymphocytes % (auto) 24.2 %; Mean Corpuscular Hemoglobin 31.3 pg (25.0-34.0); Mean Corpuscular Hgb Conc 33.1 g/dL (32.0-36.0); Mean Corpuscular Volume 94.4 fL (80.0-100.0); Mean Platelet Volume 9.1 fL (9.4-12.3); Monocytes # (auto) 1.17 K/uL (0.24-0.82); Monocytes % (auto) 12.2 %; Neutrophils % (auto) 57.3 %; Platelet Count 240 K/uL (130-400); RDW Coefficient of Variation 17.7 % (11.5-14.5); RDW Standard Deviation 60.7 fL (36.4-46.3); Red Blood Count 2.88 M/uL (3.93-5.22)
[2022-03-04] MEDS: PSYLLIUM or GUAR GUM FIBER POWDER PACKET PO SCH (08:56)
[2022-03-04] MEDS: PANTOprazole 40 MG TAB PO SCH ×2 (08:56→21:32)
[2022-03-04] MEDS: MAGNESIUM OXIDE 400 MG TAB PO SCH ×2 (08:56→21:32)
[2022-03-04] MEDS: CHOLECALCIFEROL 5,000 UNITS 125 MCG TAB PO SCH (08:59)
[2022-03-04] MEDS ORDERED: LANTUS PER UNIT CHARGE SQ SCH (09:00)
[2022-03-04] MEDS: INSULIN ASPART PER UNIT SC SCH ×4 (09:03→21:16)
--- NOTE | 2022-03-04 09:51 | Pharmacy Report ---
Pharmacy Glycemic Short Note 2 - Date of Service March 04, 2022 - Glycemic Short BSG Results (Last 24 hours): 03/03/22 03/03/22 03/03/22 12:14 17:08 20:18 POC Glucose 201 H 124 H 172 H 03/04/22 08:05 POC Glucose 157 H OUTPATIENT ANTIDIABETIC REGIMEN: * Novolog insulin pump * Basal rates: * 5915-9126 = 0.45 units/hr * 7485-0480 = 0.55 units/hr * 1634-7536 = 0.50 units/hr * Total daily basal dose = 12 units/day * Carb Ratio: 15 * Sensitivity Factor: 55 * Goal range: 140-150 mg/dL * HbA1c = 8.7% (02/26/22) * Spoke extensively with patient at bedside on 02/26/22. Reports following with Karolina MckeonorSHIVA, at [facility] Endocrinology. States she was due for an appointment recently but cancelled due to not feeling well which does appear to be true from the encounters I can see. Reports difficulty with DM management for years, especially recently with diagnosis and subsequent oreilly with cancer. States that basal rates were changed during last visit but cannot remember to what. I interrogated pump settings and found the settings listed above. States provider does not want her BSGs greater than 250 mg/dL. Average BSG at current A1c is 232 mg/dL so patient is likely not meeting this goal. Reports poor appetite in general since cancer diagnosis, especially over the last week. Changes sets every 3 days at home but states she needs to reorder supplies as she only has two sets left. Has not been using CGM as she finds it too difficult to operate. States she checks her BSG via fingerstick 4 times per day: upon wakening/before breakfast, 30-60 minutes after lunch and dinner, and then before bedtime. Instructed her to start checking BSG before all meals and before bedtime. ASSESSMENT: 03/04: * Patient's BSGS yesterday were 254-225-188-172 mg/dL. Patient received 16 units of insulin (6 units of basal and 10 units of bolus) * Fasting this AM 157 mg/dL. Basal increased to 7 units. Will set scale for tomorrow AM 7/8 units * Carb ratio changed yesterday at lunch- monitor trend today. 03/03/22 * Patient's BSGs yesterday were [phone] mg/dL. Patient received 16 units of insulin (6 units of basal and 10 units of bolus). * BSGs today are 158-201 mg/dL. * Fastings are steady above 140 mg/dL. Will have scale for tomorrow in case fastings trend higher. * Tighten CR since lunch significantly elevated. 03/01/22: * Yesterday, pt was well-controlled on 6 units of lantus QAM + 45 CF 15 CR bolus insulin. * POC BSG's largely within goal range but downtrending from previous days, most notably 79 mg/dL at dinner on 02/28 and 87 mg/dL fasting on 03/01. * Will maintain bolus regimen and slightly reduce basal dose of Lantus from 6 units to 5 units to minimize risk of hypoglycemia. 02/27/22: * Colleen received 6 units of SQ insulin yesterday (Lantus 5 units + Novolog 1 unit) with excellent glycemic control * She remains NPO and on Protonix infusion for rectal bleeding. * Fasting BSG at goal, 122 mg/dL. Will continue current dose of Lantus and reassess tomorrow. * No change to novolog orders. 02/26/22: * 81 yo F admitted for rectal bleeding and anemia. Pharmacy has been consulted to assist with inpatient glycemic management. On insulin pump as an outpatient which was removed upon presentation to the ED. A1c demonstrates mediocre control of T1DM, would prefer A1c be less than 8% ideally. Patient known to pharmacy glycemic service. Currently NPO. * Spoke with patient extensively at bedside this morning. Retrieved pump settings. Given current NPO status, lack of pump supplies until more are ordered, and unknown procedural status, patient was in agreement to continue with subcutaneous basal-bolus injections to control BSGs while admitted. Will likely transition to pump day of discharge. * BSGs have been good so far: 172-115-155 mg/dL. * Gave the patient 5 units of Lantus x 1 at lunchtime today. Novolog adjusted to reflect previous admission data. Will continue to monitor closely. PLAN FOR INPATIENT GLYCEMIC CONTROL: * Basal insulin * Lantus 7 units SC q24h (8 units if BSG > 140 mg/dL) * Bolus insulin * NovoLog per scale ACHS or Q6hrs while NPO * Goal Range: Low 110 mg/dL - High 140 mg/dL * Correction Factor: 45 mg/dL/unit * Nutritional / Prandial insulin per carb ratio of 1 unit per 12 grams CHO consumed
[2022-03-04] MEDS: oxyCODONE HCL IR 5 MG TAB (IMMEDIATE RELEASE) PO PRN ×2 (13:29→21:35)
--- NOTE | 2022-03-04 14:57 | Hospitalist Progress Note ---
Date of Service March 04, 2022 Assessment & Plan (1) Rectal bleeding: Plan: Rectal bleeding occurred postoperatively after resumption of Xarelto after hemorrhoid surgery. She states she still is having some intermittent small amounts of bleeding at the surgery site. Xarelto will remain on hold. CT A/P with IV contrast - nonspecific proctitis (continue ceftriaxone for 5 days for empiric coverage). Appreciate surgery management with packing placed. Oxycodone IR as needed for pain (2) Anemia due to acute blood loss: Plan: She has received at least 5 units of packed red blood cells this admission. Hemoglobin is down slightly at 9.0 from yesterday is 9.9. We will follow. No overt active bleeding seen. Xarelto remains on hold. (3) Type 1 diabetes: Plan: HbA1C 9.0 in October. Holding insulin pump and Dexcom. Appreciate pharmacy consult for glycemic control - planning on continuing basal bolus insulin at SNF as she is lacking supplies for her pump at this time. (4) CAD (coronary artery disease), [place] coronary artery: Plan: Stable. Medical management (5) GERD (gastroesophageal reflux disease): Plan: PPI therapy (6) Diastolic CHF: Plan: Stable. Monitor intake and output. Medical management (7) Deep vein thrombosis (DVT) of right lower extremity: Plan: History of. Xarelto on hold due to rectal bleeding (8) Insulin pump status: Plan: Pump has been deactivated. She is on basal bolus insulin at this time (9) Hypothyroidism: Plan: Continue levothyroxine 125 mcg daily. Stable (10) Breast cancer: Plan: Stage IV invasive ductal carcinoma. Last chemotherapy (Enhertu) was 4 weeks ago per patient recollection. Unlikely contributing towards current anemia. (11) IPMN (intraductal papillary mucinous neoplasm): Plan: See above Plan VTE Prophylaxis - SCDs, chemical prophylaxis contraindicated in setting of severe GI bleed Diet - T2DM, heart healthy Disposition - SNF at discharge. Admission and Anticipated Discharge Date Admission Date: February 26, 2022 Review of Systems Review of Systems: Constitutional-no fever or chills ENT-no blurred vision, no double vision, no epistaxis, no sore throat Respiratory-no cough, no wheezing, no shortness of breath Cardiac-no palpitations, no chest pain, no syncope GI-no nausea, vomiting, diarrhea, melena, hematochezia. She does have intermittent small amounts of bleeding after her hemorrhoidal surgery -no urinary retention, no urinary incontinence, no dysuria, no hematuria Musculoskeletal-no joint pain, no muscle tenderness Skin-no bruising, no rashes, no pruritus Neuro-no isolated weakness, no paresthesia, no weakness Psych-no depression, no anxiety Physical Exam Physical Exam: General-alert and oriented x3, no fevers, no chills HEENT-head atraumatic and normocephalic, pupils equal and reactive to light, extraocular muscles intact Neck-no lymphadenopathy or thyromegaly, trachea midline Chest-clear to auscultation percussion. No rales wheezing or rhonchi Cardiac-regular rate and rhythm, normal S1 and S2, no murmurs Abdomen-normal bowel sounds, nontender, no hepatosplenomegaly Extremities-no cyanosis, clubbing, or edema Neuro-cranial nerves II through XII intact, motor and sensory function within normal limits, strength symmetrical , no focal deficits Psych-normal affect, normal mood Results & Data Results & Data ([facility]) Vital Signs (Past 12 Hours) Vital Signs Temp Pulse Resp BP Pulse Ox O2 Del Method 03/04/22 14:46 36.6 C 73 16 136/67 96 Room Air 03/04/22 07:40 Room Air 03/04/22 07:03 36.8 C 72 16 134/69 95 Room Air Laboratory Results 03/04/22 06:10 03/02/22 05:44 PG Care Time/CCT Total # of Minutes Spent Total Time Spent with Patient: Total time spent is greater than 50% in coordination of care (as documented) at patient's floor/unit and/or counseling patient: Coding Level of Care Code 15669 Subseq Hosp Care Lvl 3 Diagnoses Rectal bleeding K62.5 Anemia due to acute blood loss D62 Type 1 diabetes E10.9 CAD (coronary artery disease), [place] coronary artery I25.10 GERD (gastroesophageal reflux disease) K21.9 Diastolic CHF I50.30 Deep vein thrombosis (DVT) of right lower extremity I82.401 Insulin pump status Z96.41 Hypothyroidism E03.9 Breast cancer C50.919 IPMN (intraductal papillary mucinous neoplasm) D49.0
[2022-03-04] MEDS: METOPROLOL SUCC 25MG EXT REL TAB PO SCH (21:32)
[2022-03-05] MEDS: HEPARIN 100 UNIT/ML 5ML FLUSH FLUSH PRN (05:37)
[2022-03-05] MEDS: LEVOTHYROXINE SODIUM 125 MCG TABLET PO SCH (05:38)
[2022-03-05] MEDS: ALBUTEROL 0.083% NEBU SOLN 3 ML VIAL NEB PRN (06:12)
[2022-03-05 06:32] LABS: Basophils # (auto) 0.06 K/uL (0-0.2); Basophils % (auto) 0.6 %; Eosinophils # (auto) 0.61 K/uL (0-0.50); Eosinophils % (auto) 5.9 %; Hematocrit (blood only) 26.8 % (34.1-44.9); Immature Granulocytes # (auto) 0.06 K/uL (0.00-0.02); Immature Granulocytes % (auto) 0.6 %; Lymphocytes # (auto) 3.06 K/uL (1.2-3.4); Lymphocytes % (auto) 29.8 %; Mean Corpuscular Hemoglobin 31.4 pg (25.0-34.0); Mean Corpuscular Hgb Conc 33.6 g/dL (32.0-36.0); Mean Corpuscular Volume 93.4 fL (80.0-100.0); Mean Platelet Volume 9.3 fL (9.4-12.3); Monocytes # (auto) 1.15 K/uL (0.24-0.82); Monocytes % (auto) 11.2 %; Neutrophils # (auto) 5.33 K/uL (1.4-6.5); Neutrophils % (auto) 51.9 %; Platelet Count 260 K/uL (130-400); RDW Coefficient of Variation 17.4 % (11.5-14.5); RDW Standard Deviation 59.4 fL (36.4-46.3); Red Blood Count 2.87 M/uL (3.93-5.22); White Blood Count 10.27 K/ul (4.8-10.8)
[2022-03-05] MEDS: oxyCODONE HCL IR 5 MG TAB (IMMEDIATE RELEASE) PO PRN (08:18)
[2022-03-05] MEDS: PSYLLIUM or GUAR GUM FIBER POWDER PACKET PO SCH (08:18)
[2022-03-05] MEDS: MAGNESIUM OXIDE 400 MG TAB PO SCH ×2 (08:19→20:45)
[2022-03-05] MEDS: PANTOprazole 40 MG TAB PO SCH ×2 (08:19→20:45)
[2022-03-05] MEDS: CHOLECALCIFEROL 5,000 UNITS 125 MCG TAB PO SCH (08:19)
[2022-03-05] MEDS: INSULIN ASPART PER UNIT SC SCH ×4 (08:39→20:44)
[2022-03-05] MEDS ORDERED: LANTUS PER UNIT CHARGE SQ SCH (09:00)
--- NOTE | 2022-03-05 12:45 | Hospitalist Progress Note ---
Date of Service March 05, 2022 Assessment & Plan (1) Rectal bleeding: Plan: Rectal bleeding occurred postoperatively after resumption of Xarelto after hemorrhoid surgery. She states small amounts of bleeding at the surgery site have now resolved. Xarelto remains on hold. CT A/P with IV contrast - nonspecific proctitis (treated with ceftriaxone for 5 days for empiric coverage). Appreciate surgery management with packing placed. Oxycodone IR as needed for pain (2) Anemia due to acute blood loss: Plan: She has received at least 5 units of packed red blood cells this admission. Hemoglobin is now stable at 9.0. Will follow. No overt active bleeding seen. Xarelto remains on hold. (3) Type 1 diabetes: Plan: HbA1C 9.0 in October. Holding insulin pump and Dexcom. Appreciate pharmacy consult for glycemic control - planning on continuing basal bolus insulin at [facility] as she is lacking supplies for her pump at this time. (4) CAD (coronary artery disease), [place] coronary artery: Plan: Stable. Medical management (5) GERD (gastroesophageal reflux disease): Plan: PPI therapy (6) Diastolic CHF: Plan: Stable. Monitor intake and output. Medical management (7) Deep vein thrombosis (DVT) of right lower extremity: Plan: History of. Xarelto on hold due to rectal bleeding (8) Insulin pump status: Plan: Pump has been deactivated. She is on basal bolus insulin at this time (9) Hypothyroidism: Plan: Continue levothyroxine 125 mcg daily. Stable (10) Breast cancer: Plan: Stage IV invasive ductal carcinoma. Last chemotherapy (Enhertu) was 4 weeks ago per patient recollection. Unlikely contributing towards current anemia. (11) IPMN (intraductal papillary mucinous neoplasm): Plan: See above Plan VTE Prophylaxis - lovenox SQ Diet - T2DM, heart healthy Disposition - SNF at discharge. Admission and Anticipated Discharge Date Admission Date: February 26, 2022 Subjective Alert and oriented. No acute distress. She states the oxycodone is controlling her perirectal discomfort postoperatively. Xarelto remains on hold. Hemoglobin has stabilized at 9.0. She did receive a total of 5 units packed red blood cells so far this admission. Discharge to SNF pending Review of Systems Review of Systems: Constitutional-no fever or chills ENT-no blurred vision, no double vision, no epistaxis, no sore throat Respiratory-no cough, no wheezing, no shortness of breath Cardiac-no palpitations, no chest pain, no syncope GI-no nausea, vomiting, diarrhea, melena, hematochezia. She does have intermit tent small amounts of bleeding after her hemorrhoidal surgery -no urinary retention, no urinary incontinence, no dysuria, no hematuria Musculoskeletal-no joint pain, no muscle tenderness Skin-no bruising, no rashes, no pruritus Neuro-no isolated weakness, no paresthesia, no weakness Psych-no depression, no anxiety Physical Exam Physical Exam: General-alert and oriented x3, no fevers, no chills HEENT-head atraumatic and normocephalic, pupils equal and reactive to light, extraocular muscles intact Neck-no lymphadenopathy or thyromegaly, trachea midline Chest-clear to auscultation percussion. No rales wheezing or rhonchi Cardiac-regular rate and rhythm, normal S1 and S2, no murmurs Abdomen-normal bowel sounds, nontender, no hepatosplenomegaly Extremities-no cyanosis, clubbing, or edema Neuro-cranial nerves II through XII intact, motor and sensory function within normal limits, strength symmetrical , no focal deficits Psych-normal affect, normal mood Results & Data Results & Data ([facility]) Vital Signs (Past 12 Hours) Vital Signs Temp Pulse Pulse Resp BP Pulse Ox O2 Del Method 03/05/22 07:35 Room Air 03/05/22 11:18 82 92 Room Air 03/05/22 09:23 99 H 91 Room Air 03/05/22 08:28 95 H 16 129/65 90 Room Air 03/05/22 07:30 37.3 C 94 H 16 112/65 91 Room Air 03/05/22 06:14 76 18 93 Room Air Laboratory Results 03/05/22 05:37 03/02/22 05:44 PG Care Time/CCT Total # of Minutes Spent Total Time Spent with Patient: Total time spent is greater than 50% in coordination of care (as documented) at patient's floor/unit and/or counseling patient: Coding Level of Care Code 90922 Subseq Hosp Care Lvl 3 Diagnoses Rectal bleeding K62.5 Anemia due to acute blood loss D62 Type 1 diabetes E10.9 CAD (coronary artery disease), [place] coronary artery I25.10 GERD (gastroesophageal reflux disease) K21.9 Diastolic CHF I50.30 Deep vein thrombosis (DVT) of right lower extremity I82.401 Insulin pump status Z96.41 Hypothyroidism E03.9 Breast cancer C50.919 IPMN (intraductal papillary mucinous neoplasm) D49.0
[2022-03-05] MEDS: METOPROLOL SUCC 25MG EXT REL TAB PO SCH (20:49)
[2022-03-06] MEDS: oxyCODONE HCL IR 5 MG TAB (IMMEDIATE RELEASE) PO PRN ×2 (06:19→17:12)
[2022-03-06] MEDS: LEVOTHYROXINE SODIUM 125 MCG TABLET PO SCH (06:20)
[2022-03-06 08:07] LABS: Creatinine Clr Calc Pharmacy 46.2 ml/min; Est GFR (African American) 62.7 ml/min; Est GFR (Non-African American) 54.1 ml/min
--- NOTE | 2022-03-06 08:21 | OB/GYN Consultation ---
Date of Consultation March 06, 2022 Assessment & Plan (1) Vaginal discharge: (2) Vaginal prolapse: (3) Pessary maintenance: Plan Small amount of vaginal discharge seen, swabbed but suspect related to pessary having been in for over a year. Pessary was removed and no blood seen on it. Pt declined replacement so was left out. Will have pt f/u in 1 mo for exam in office as limited today. Can contact motor vehicle field representative if any further concerns moving forward History of Present Illness Reason for Consultation: Vaginal discharge, pessary Requesting Physician: Dr. Hollins Attending Physician: Lang Hollins MD History of Present Illness 81 yo postmenopausal female admitted service due to rectal bleeding and subsequent acute blood loss anemia with multiple comorbidities including Stage 4 invasive ductal carcinoma. Consulted due to cloudy vaginal discharge seen that was separate from urine that has been draining w/ lyons. Has a size 5 ring pessary and has had it in essentially since 02/2021. Says she took it at one time and replaced it but not sure when. Denies vaginal bleeding or discomfort from pessary. Allergies Allergy/AdvReac Type Severity Reaction Status Date / Time lisinopril AdvReac Intermediate Elevates Verified 02/25/22 22:59 potassium losartan AdvReac Intermediate Elevates Verified 02/25/22 22:59 potassium Home Medications Medication Instructions Recorded Confirmed Type cholecalciferol (vitamin D3) 125 5,000 unit PO QAM 12/25/19 02/25/22 History mcg (5,000 unit) capsule omeprazole 20 mg tablet,delayed 20 mg PO QAM 03/27/20 02/25/22 History release blood-glucose sensor (Dexcom G6 #3 ea 09/22/20 03/04/22 History Sensor device) blood-glucose transmitter (Dexcom #1 ea 09/22/20 03/04/22 History G6 Transmitter device) subcutaneous insulin pump (MiniMed #1 ea 09/22/20 03/04/22 History 530G Insulin Pump) acetaminophen 325 mg capsule 650 mg PO QID PRN Pain 01/09/21 02/25/22 History (Tylenol) metoprolol succinate 25 mg 25 mg PO QPM 03/17/21 02/25/22 History tablet,extended release 24 hr Lactobacillus 1 cap PO BID 03/26/21 02/25/22 History acidophilus-Bifidobac.animalis 31 billion cell capsule blood sugar diagnostic (Contour #400 ea 01/06/22 11/17/22 Rx Next Test Strips) Wheeled Walker #1 ea 05/14/21 03/04/22 Rx Novolog U-100 Insulin aspart 100 30 unit (0.3 mL) continuous 07/21/21 02/25/22 Rx unit/mL subcutaneous solution subcutaneous infusion DAILY 90 (insulin aspart U-100) days #30 mL furosemide 20 mg tablet (Lasix) 40 mg PO .COMPLEX 09/29/21 02/25/22 History insulin syringe-needle U-100 0.3 #100 ea 10/14/21 03/04/22 Rx mL 29 gauge x 1/2" (BD Insulin Syringe) insulin glargine 100 unit/mL 14 unit subcut QPM PRN .PUMP 10/15/21 02/25/22 History subcutaneous solution (Lantus FAILURE U-100 Insulin) levothyroxine 125 mcg tablet 125 mcg PO DAILY #90 tabs 02/08/22 02/25/22 Rx magnesium oxide 400 mg PO BID 02/25/22 02/25/22 History oxycodone 5 mg tablet 5 mg PO Q4 PRN Pain 02/25/22 02/25/22 History Patient History Medical History Anasarca Secondary to nutritional deficiency and possibly component of diastolic HF per 05/2021 cardio records > diuretics adjusted and GUS wraps for legs recommended Anemia Hgb 9s per chart review Deep vein thrombosis (DVT) of right lower extremity Non-occlusive DVT (right peroneal vein)- 08/2019 while on chemo Reason for Xarelto Diabetes mellitus type 1 + insulin pump Follows with [facility] endocrine/primary special educator GERD (gastroesophageal reflux disease) Diet controlled Shane's thyroiditis History of blood transfusion 02/2020 Hx of gastric ulcer HX: breast cancer Rt (2019) > s/p surgery/chemo Mets to lung > targeted txs Hyperlipidemia Hypertension Hypothyroidism Insulin pump in place IPMN (intraductal papillary mucinous neoplasm) 3 seen on EUS (10 mm, 13 mm, 8 mm) with FNA performed showing mucinous cyst and no malignancy Follows with Dr. Lozada (MRI abd rec in one year) Lung cancer Mets from breast ca- currently undergoing- Enhertu targeted tx for lung nodules q3 weeks Mixed conductive and sensorineural hearing loss of right ear with restricted hearing of left ear Multiple pulmonary nodules Under surveillance by CTS Tooth abscess 5 teeth possible abscesses- plan for upcoming extraction Urinary incontinence UTI (urinary tract infection) Current symptoms (no testing done)- rx'd cipro BID (to start 11/10/21) Surgical History History of anesthesia reaction Sister > slow to wake History of breast biopsy Right History of carpal tunnel release R/L History of cataract surgery B/L History of cholecystectomy History of colonoscopy History of ERCP History of esophagogastroduodenoscopy (EGD) Large hiatal hernia, non-bleeding duodenal ulcer (done for iron def anemia evaluation) History of hip surgery Left s/p femur fracture History of tonsillectomy and adenoidectomy History of tooth extraction History of vascular access device APort--left side of chest S/P mastectomy Right breast, with sentinel lymph node biopsy, Dr. Preet Burdick, [facility] S/P mastectomy right S/P thyroid biopsy benign Family History Sister Pancreatic cancer Breast cancer Cancer Father Lung cancer Cancer Brother Diabetes Brother Diabetes Parkinson disease Grandfather (Maternal) Myocardial infarction Other No family history of adverse response to anesthesia No family history of bleeding disorder Denies family history of Ovarian cancer Prostate cancer Heart disease Colorectal cancer Hypertension Stroke Asthma Social History Smoking Status: Never smoker Second Hand Exposure: No; Hx Alcohol Use: No Hx Substance Use: No Preferred Language: Turkish Communication Ability: Unable Visual Impairment: No Limitations Hearing Ability: Normal Process Manager Required: No Beliefs That Will Affect Care: None marital status: / Current Living Situation: Alone Current Living Situation Comment: son lena has been staying w/ her since last february current occupational status: retired Feels Safe at Home: Yes caffeine: Yes Dental Care, Regularly: Yes Physical Activity Frequency: Does not Exercise Seatbelt Use: always Sunscreen Use: Yes Assistive Devices: Walker Review of Systems Review of Systems: neg except as noted in HPI Physical Exam Genitourinary: Vulva appears irritated Ring pessary grasped and removed. Pt declined reinsertion Attempted speculum exam was limited by bed and significant leg edema, visualized vaginal tissue appeared atrophic. Discharge seen but appropriate given pessary. Results & Data ([facility]) Vital Signs (Past 12 Hours) Vital Signs Temp Pulse Resp BP Pulse Ox O2 Del Method 03/06/22 07:35 98.2 F 90 16 120/56 L 92 Room Air 03/05/22 20:51 99.0 F 87 16 131/65 93 Room Air PG Care Time/CCT Total # of Minutes Spent Total Time Spent with Patient: Total time spent is greater than 50% in coordination of care (as documented) at patient's floor/unit and/or counseling patient: Coding Level of Care Code 86797 Initial Inpt Care Lvl 2 Diagnoses Vaginal discharge N89.8 Vaginal prolapse N81.10 Pessary maintenance Z46.89
[2022-03-06] MEDS: INSULIN ASPART PER UNIT SC SCH ×4 (08:49→20:59)
[2022-03-06] MEDS: LANTUS PER UNIT CHARGE SQ SCH (08:50)
[2022-03-06] MEDS: PANTOprazole 40 MG TAB PO SCH ×2 (08:51→21:06)
[2022-03-06] MEDS: PSYLLIUM or GUAR GUM FIBER POWDER PACKET PO SCH (08:51)
[2022-03-06] MEDS: CHOLECALCIFEROL 5,000 UNITS 125 MCG TAB PO SCH (08:52)
[2022-03-06] MEDS: ENOXAPARIN INJ 40 MG/0.4 ML SYR SQ SCH (08:52)
[2022-03-06] MEDS: MAGNESIUM OXIDE 400 MG TAB PO SCH ×2 (08:52→21:06)
--- NOTE | 2022-03-06 12:01 | Hospitalist Progress Note ---
Date of Service March 06, 2022 Assessment & Plan (1) Rectal bleeding: Plan: Rectal bleeding occurred postoperatively after resumption of Xarelto after hemorrhoid surgery. She states small amounts of bleeding at the surgery site have now resolved. Xarelto remains on hold. CT A/P with IV contrast - nonspecific proctitis (treated with ceftriaxone for 5 days for empiric coverage). Appreciate surgery management with packing placed. Oxycodone IR as needed for pain (2) Anemia due to acute blood loss: Plan: She has received at least 5 units of packed red blood cells this admission. Hemoglobin is now stable at 9.0. Will follow. No overt active bleeding seen. Xarelto remains on hold. (3) Type 1 diabetes: Plan: HbA1C 9.0 in October. Holding insulin pump and Dexcom. Appreciate pharmacy consult for glycemic control - planning on continuing basal bolus insulin at [facility] as she is lacking supplies for her pump at this time. (4) CAD (coronary artery disease), [place] coronary artery: Plan: Stable. Medical management (5) GERD (gastroesophageal reflux disease): Plan: PPI therapy (6) Diastolic CHF: Plan: Stable. Monitor intake and output. Medical management (7) Deep vein thrombosis (DVT) of right lower extremity: Plan: History of. Xarelto on hold due to rectal bleeding (8) Insulin pump status: Plan: Pump has been deactivated. She is on basal bolus insulin at this time (9) Hypothyroidism: Plan: Continue levothyroxine 125 mcg daily. Stable (10) Breast cancer: Plan: Stage IV invasive ductal carcinoma. Last chemotherapy (Enhertu) was 4 weeks ago per patient recollection. Unlikely contributing towards current anemia. (11) IPMN (intraductal papillary mucinous neoplasm): Plan: See above Plan VTE Prophylaxis - lovenox SQ Diet - T2DM, heart healthy Disposition - SNF at discharge. Admission and Anticipated Discharge Date Admission Date: February 26, 2022 Subjective Alert and oriented. Pleasant. MAT GAUGER consult appreciated. Her vaginal pessary has been removed. No other intervention needed at this time. Review of Systems Review of Systems: Constitutional-no fever or chills ENT-no blurred vision, no double vision, no epistaxis, no sore throat Respiratory-no cough, no wheezing, no shortness of breath Cardiac-no palpitations, no chest pain, no syncope GI-no nausea, vomiting, diarrhea, melena, hematochezia. She does have intermittent small amounts of bleeding after her hemorrhoidal surgery -no urinary retention, no urinary incontinence, no dysuria, no hematuria Musculoskeletal-no joint pain, no muscle tenderness Skin-no bruising, no rashes, no pruritus Neuro-no isolated weakness, no paresthesia, no weakness Psych-no depression, no anxiety Physical Exam Physical Exam: General-alert and oriented x3, no fevers, no chills HEENT-head atraumatic and normocephalic, pupils equal and reactive to light, extraocular muscles intact Neck-no lymphadenopathy or thyromegaly, trachea midline Chest-clear to auscultation percussion. No rales wheezing or rhonchi Cardiac-regular rate and rhythm, normal S1 and S2, no murmurs Abdomen-normal bowel sounds, nontender, no hepatosplenomegaly Extremities-no cyanosis, clubbing, or edema Neuro-cranial nerves II through XII intact, motor and sensory function within normal limits, strength symmetrical , no focal deficits Psych-normal affect, normal mood Results & Data Results & Data ([facility]) Vital Signs (Past 12 Hours) Vital Signs Temp Pulse Resp BP Pulse Ox O2 Del Method 03/06/22 07:35 36.8 C 90 16 120/56 L 92 Room Air Laboratory Results 03/05/22 05:37 03/06/22 07:00 PG Care Time/CCT Total # of Minutes Spent Total Time Spent with Patient: Total time spent is greater than 50% in coordination of care (as documented) at patient's floor/unit and/or counseling patient: Coding Level of Care Code 99252 Subseq Hosp Care Lvl 2 Diagnoses Rectal bleeding K62.5 Anemia due to acute blood loss D62 Type 1 diabetes E10.9 CAD (coronary artery disease), [place] coronary artery I25.10 GERD (gastroesophageal reflux disease) K21.9 Diastolic CHF I50.30 Deep vein thrombosis (DVT) of right lower extremity I82.401 Insulin pump status Z96.41 Hypothyroidism E03.9 Breast cancer C50.919 IPMN (intraductal papillary mucinous neoplasm) D49.0
[2022-03-06] MEDS: METOPROLOL SUCC 25MG EXT REL TAB PO SCH (21:06)
[2022-03-06] MEDS: ACETAMINOPHEN 325 MG TAB PO PRN (21:10)
[2022-03-07] MEDS: LEVOTHYROXINE SODIUM 125 MCG TABLET PO SCH (05:27)
[2022-03-07] MEDS: MAGNESIUM OXIDE 400 MG TAB PO SCH ×2 (09:01→20:10)
[2022-03-07] MEDS: PANTOprazole 40 MG TAB PO SCH ×2 (09:01→20:10)
[2022-03-07] MEDS: CHOLECALCIFEROL 5,000 UNITS 125 MCG TAB PO SCH (09:02)
[2022-03-07] MEDS: ENOXAPARIN INJ 40 MG/0.4 ML SYR SQ SCH (09:02)
[2022-03-07] MEDS: PSYLLIUM or GUAR GUM FIBER POWDER PACKET PO SCH (09:02)
[2022-03-07] MEDS: INSULIN ASPART PER UNIT SC SCH ×4 (09:05→21:49)
[2022-03-07] MEDS: LANTUS PER UNIT CHARGE SQ SCH (09:05)
[2022-03-07] MEDS: oxyCODONE HCL IR 5 MG TAB (IMMEDIATE RELEASE) PO PRN ×2 (12:19→18:28)
--- NOTE | 2022-03-07 12:47 | Hospitalist Progress Note ---
Date of Service March 07, 2022 Assessment & Plan (1) Rectal bleeding: Plan: Rectal bleeding occurred postoperatively after resumption of Xarelto after hemorrhoid surgery. She states small amounts of bleeding at the surgery site have now resolved. Xarelto remains on hold. CT A/P with IV contrast - nonspecific proctitis (treated with ceftriaxone for 5 days for empiric coverage). Appreciate surgery management with packing placed. Oxycodone IR as needed for pain (2) Anemia due to acute blood loss: Plan: She has received at least 5 units of packed red blood cells this admission. Hemoglobin is now stable. Will follow. No overt active bleeding seen. Xarelto remains on hold. (3) Type 1 diabetes: Plan: HbA1C 9.0 in October. Holding insulin pump and Dexcom. Appreciate pharmacy consult for glycemic control - planning on continuing basal bolus insulin at [facility] as she is lacking supplies for her pump at this time. (4) CAD (coronary artery disease), [place] coronary artery: Plan: Stable. Medical management (5) GERD (gastroesophageal reflux disease): Plan: PPI therapy (6) Diastolic CHF: Plan: Stable. Monitor intake and output. Medical management (7) Deep vein thrombosis (DVT) of right lower extremity: Plan: History of. Xarelto on hold due to rectal bleeding (8) Insulin pump status: Plan: Pump has been deactivated. She is on basal bolus insulin at this time (9) Hypothyroidism: Plan: Continue levothyroxine 125 mcg daily. Stable (10) Breast cancer: Plan: Stage IV invasive ductal carcinoma. Last chemotherapy (Enhertu) was 4 weeks ago per patient recollection. Unlikely contributing towards current anemia. (11) IPMN (intraductal papillary mucinous neoplasm): Plan: See above Plan VTE Prophylaxis - lovenox SQ Diet - T2DM, heart healthy Disposition - SNF at discharge. Admission and Anticipated Discharge Date Admission Date: February 26, 2022 Subjective Alert and oriented. Pleasant. No acute distress. Awaiting eventual discharge to [facility]. She is medically stable Review of Systems Review of Systems: Constitutional-no fever or chills ENT-no blurred vision, no double vision, no epistaxis, no sore throat Respiratory-no cough, no wheezing, no shortness of breath Cardiac-no palpitations, no chest pain, no syncope GI-no nausea, vomiting, diarrhea, melena, hematochezia. She does have intermittent small amounts of bleeding after her hemorrhoidal surgery -no urinary retention, no urinary incontinence, no dysuria, no hematuria Musculoskeletal-no joint pain, no muscle tenderness Skin-no bruising, no rashes, no pruritus Neuro-no isolated weakness, no paresthesia, no weakness Psych-no depression, no anxiety Physical Exam Physical Exam: General-alert and oriented x3, no fevers, no chills HEENT-head atraumatic and normocephalic, pupils equal and reactive to light, extraocular muscles intact Neck-no lymphadenopathy or thyromegaly, trachea midline Chest-clear to auscultation percussion. No rales wheezing or rhonchi Cardiac-regular rate and rhythm, normal S1 and S2, no murmurs Abdomen-normal bowel sounds, nontender, no hepatosplenomegaly Extremities-no cyanosis, clubbing, or edema Neuro-cranial nerves II through XII intact, motor and sensory function within normal limits, strength symmetrical , no focal deficits Psych-normal affect, normal mood Results & Data Results & Data ([facility]) Vital Signs (Past 12 Hours) Vital Signs Temp Pulse Pulse Resp BP Pulse Ox O2 Del Method 03/07/22 11:49 37.3 C 82 16 117/55 L 92 Room Air 03/07/22 09:51 37.3 C 97 H 16 116/66 92 Room Air 03/07/22 08:52 37.4 C 95 H 16 126/75 92 Room Air 03/07/22 07:30 Room Air 03/07/22 07:23 37.6 C H 77 16 102/55 L 91 Room Air Laboratory Results 03/05/22 05:37 03/06/22 07:00 PG Care Time/CCT Total # of Minutes Spent Total Time Spent with Patient: Total time spent is greater than 50% in coordination of care (as documented) at patient's floor/unit and/or counseling patient: Coding Level of Care Code 26399 Subseq Hosp Care Lvl 2 Diagnoses Rectal bleeding K62.5 Anemia due to acute blood loss D62 Type 1 diabetes E10.9 CAD (coronary artery disease), [place] coronary artery I25.10 GERD (gastroesophageal reflux disease) K21.9 Diastolic CHF I50.30 Deep vein thrombosis (DVT) of right lower extremity I82.401 Insulin pump status Z96.41 Hypothyroidism E03.9 Breast cancer C50.919 IPMN (intraductal papillary mucinous neoplasm) D49.0
--- NOTE | 2022-03-07 14:05 | Pharmacy Report ---
Pharmacy Glycemic Short Note 2 - Date of Service March 07, 2022 - Glycemic Short BSG Results (Last 24 hours): 03/06/22 03/06/22 03/07/22 16:49 20:12 08:27 POC Glucose 122 H 86 176 H 03/07/22 12:29 POC Glucose 203 H OUTPATIENT ANTIDIABETIC REGIMEN: * Novolog insulin pump * Basal rates: * 5857-6255 = 0.45 units/hr * 6107-1533 = 0.55 units/hr * 5684-9800 = 0.50 units/hr * Total daily basal dose = 12 units/day * Carb Ratio: 15 * Sensitivity Factor: 55 * Goal range: 140-150 mg/dL * HbA1c = 8.7% (02/26/22) * Spoke extensively with patient at bedside on 02/26/22. Reports following with Karolina WesSHIVA, at [facility] End[facility]. States she was due for an appointment recently but cancelled due to not feeling well which does appear to be true from the encounters I can see. Reports difficulty with DM management for years, especially recently with diagnosis and subsequent oreilly with cancer. States that basal rates were changed during last visit but cannot remember to what. I interrogated pump settings and found the settings listed above. States provider does not want her BSGs greater than 250 mg/dL. Average BSG at current A1c is 232 mg/dL so patient is likely not meeting this goal. Reports poor appetite in general since cancer diagnosis, especially over the last week. Changes sets every 3 days at home but states she needs to reorder supplies as she only has two sets left. Has not been using CGM as she finds it too difficult to operate. States she checks her BSG via fingerstick 4 times per day: upon wakening/before breakfast, 30-60 minutes after lunch and dinner, and then before bedtime. Instructed her to start checking BSG before all meals and before bedtime. ASSESSMENT: 03/07/22: * BSGs have been reasonably controlled over past 72 hours, with upward trend at lunchtime * Fasting BSG still elevated at 176 mg/dL, will increase tomorrow and tighten AM Novolog parameters 03/04: * Patient's BSGS yesterday were [phone] mg/dL. Patient received 16 units of insulin (6 units of basal and 10 units of bolus) * Fasting this AM 157 mg/dL. Basal increased to 7 units. Will set scale for tomorrow AM 7/8 units * Carb ratio changed yesterday at lunch- monitor trend today. 03/03/22 * Patient's BSGs yesterday were [phone] mg/dL. Patient received 16 units of insulin (6 units of basal and 10 units of bolus). * BSGs today are 158-201 mg/dL. * Fastings are steady above 140 mg/dL. Will have scale for tomorrow in case fastings trend higher. * Tighten CR since lunch significantly elevated. 02/26/22: * 81 yo F admitted for rectal bleeding and anemia. Pharmacy has been consulted to assist with inpatient glycemic management. On insulin pump as an outpatient which was removed upon presentation to the ED. A1c demonstrates mediocre control of T1DM, would prefer A1c be less than 8% ideally. Patient known to pharmacy glycemic service. Currently NPO. * Spoke with patient extensively at bedside this morning. Retrieved pump settings. Given current NPO status, lack of pump supplies until more are ordered, and unknown procedural status, patient was in agreement to continue with subcutaneous basal-bolus injections to control BSGs while admitted. Will likely transition to pump day of discharge. * BSGs have been good so far: 172-115-155 mg/dL. * Gave the patient 5 units of Lantus x 1 at lunchtime today. Novolog adjusted to reflect previous admission data. Will continue to monitor closely. PLAN FOR INPATIENT GLYCEMIC CONTROL: * Basal insulin * Lantus 8 units SC today, increase to 9 units SC daily tomorrow * Bolus insulin * NovoLog per scale ACHS or Q6hrs while NPO * Goal Range: Low 110 mg/dL - High 140 mg/dL * Correction Factor: 30 mg/dL/unit with breakfast, 45 mg/dL/unit with lunch, dinner, HS * Nutritional / Prandial insulin per carb ratio of 1 unit per 10 grams CHO consumed with breakfast 12 grams CHO consumed with lunch, dinner, HS
[2022-03-07] MEDS: METOPROLOL SUCC 25MG EXT REL TAB PO SCH (20:10)
[2022-03-08] MEDS: LEVOTHYROXINE SODIUM 125 MCG TABLET PO SCH (05:34)
[2022-03-08 07:56] LABS: Basophils # (auto) 0.05 K/uL (0-0.2); Basophils % (auto) 0.5 %; Eosinophils # (auto) 0.41 K/uL (0-0.50); Eosinophils % (auto) 4.5 %; Hematocrit (blood only) 26.5 % (34.1-44.9); Hemoglobin 8.8 g/dl (12.0-16.0); Immature Granulocytes # (auto) 0.03 K/uL (0.00-0.02); Immature Granulocytes % (auto) 0.3 %; Lymphocytes # (auto) 3.43 K/uL (1.2-3.4); Lymphocytes % (auto) 37.5 %; Mean Corpuscular Hemoglobin 31.1 pg (25.0-34.0); Mean Corpuscular Hgb Conc 33.2 g/dL (32.0-36.0); Mean Corpuscular Volume 93.6 fL (80.0-100.0); Mean Platelet Volume 8.9 fL (9.4-12.3); Monocytes # (auto) 1.31 K/uL (0.24-0.82); Monocytes % (auto) 14.3 %; Neutrophils # (auto) 3.92 K/uL (1.4-6.5); Neutrophils % (auto) 42.9 %; Platelet Count 290 K/uL (130-400); RDW Coefficient of Variation 16.6 % (11.5-14.5); RDW Standard Deviation 56.9 fL (36.4-46.3); Red Blood Count 2.83 M/uL (3.93-5.22); White Blood Count 9.15 K/ul (4.8-10.8)
[2022-03-08 08:17] LABS: BUN Creatinine Ratio 28.2 (10-20); Calcium 7.7 mg/dl (8.5-10.1); Est GFR (Non-African American) 50.9 ml/min; Potassium 5.8 mmol/L (3.5-5.1)
[2022-03-08] MEDS ORDERED: LANTUS PER UNIT CHARGE SQ SCH (09:00)
[2022-03-08] MEDS: PANTOprazole 40 MG TAB PO SCH ×2 (09:03→20:59)
[2022-03-08] MEDS: MAGNESIUM OXIDE 400 MG TAB PO SCH ×2 (09:03→20:59)
[2022-03-08] MEDS: PSYLLIUM or GUAR GUM FIBER POWDER PACKET PO SCH (09:03)
[2022-03-08] MEDS: CHOLECALCIFEROL 5,000 UNITS 125 MCG TAB PO SCH (09:03)
[2022-03-08] MEDS: oxyCODONE HCL IR 5 MG TAB (IMMEDIATE RELEASE) PO PRN ×3 (09:03→21:02)
[2022-03-08] MEDS: ENOXAPARIN INJ 40 MG/0.4 ML SYR SQ SCH (09:04)
[2022-03-08] MEDS: INSULIN ASPART PER UNIT SC SCH ×4 (09:06→20:58)
--- NOTE | 2022-03-08 15:30 | Hospitalist Progress Note ---
Date of Service March 08, 2022 Assessment & Plan (1) Rectal bleeding: Plan: -Rectal bleeding occurred postoperatively after resumption of Xarelto after hemorrhoid surgery. -No further bleeding episodes -Xarelto remains on hold. -CT A/P with IV contrast - nonspecific proctitis (treated with ceftriaxone for 5 days for empiric coverage). - Appreciate surgery management with packing placed. Oxycodone IR as needed for pain (2) Anemia due to acute blood loss: Plan: She has received at least 5 units of packed red blood cells this admission. Hemoglobin is now stable. Will follow. No overt active bleeding seen. Xarelto remains on hold. (3) Anasarca: Plan: Bilateral leg and abdominal wall edema could be multifactorial Worsening Diastolic Herat failure will obtain 2 d ECHO Lasix 40mg daily Kobi wraps (4) Type 1 diabetes: Plan: HbA1C 9.0 in October. Holding insulin pump and Dexcom. Appreciate pharmacy consult for glycemic control - planning on continuing basal bolus insulin at SNF as she is lacking supplies for her pump at this time. (5) CAD (coronary artery disease), [place] coronary artery: Plan: Stable. Medical management (6) GERD (gastroesophageal reflux disease): Plan: PPI therapy (7) Diastolic CHF: Plan: Stable. Monitor intake and output. Medical management (8) Deep vein thrombosis (DVT) of right lower extremity: Plan: History of. Xarelto on hold due to rectal bleeding (9) Insulin pump status: Plan: Pump has been deactivated. She is on basal bolus insulin at this time (10) Hypothyroidism: Plan: Continue levothyroxine 125 mcg daily. Stable (11) Breast cancer: Plan: Stage IV invasive ductal carcinoma. Last chemotherapy (Enhertu) was 4 weeks ago per patient recollection. Unlikely contributing towards current anemia. (12) IPMN (intraductal papillary mucinous neoplasm): Plan: See above Plan VTE Prophylaxis - lovenox SQ Diet - T2DM, heart healthy Disposition - SNF at discharge. Admission and Anticipated Discharge Date Admission Date: February 26, 2022 Subjective patient seen and examined, sitting up in the chair Review of Systems Review of Systems: All systems reviewed are negative, apart from the ones contained in the history. Physical Exam Physical Exam: The patient is awake, alert and oriented 3, well developed and well nourished, normocephalic and atraumatic, lying in bed and in no acute distress. HEENT--PERRL, EOMI, mucous membranes and oropharynx mildly dry Neck--supple. No JVD. No bruits. Thyroid normal, trachea midline, no adenopathy. Heart--normal S1 and S2. No murmurs, rubs or gallops. Lungs--clear bilaterally, no respiratory distress, no accessory muscle use. Abdomen--normal bowel sounds and soft. Mild epigastric and left sided abdominal pain, abdominal wall edema Extremities--bilateral leg edema Dermatologic--normal skin turgor, normal color, no abnormal lymph nodes, no rash. Neurologic--cranial nerves II through XII grossly intact. Rheumatologic--normal range of motion. Psychiatric--normal affect. Results & Data Results & Data ([facility]) Vital Signs (Past 12 Hours) Vital Signs Temp Pulse Resp BP Pulse Ox O2 Del Method 03/08/22 15:19 98.8 F 88 16 136/74 93 Room Air 03/08/22 07:10 Room Air 03/08/22 07:43 98.8 F 87 16 146/48 H 93 Room Air PG Care Time/CCT Total # of Minutes Spent Total Time Spent with Patient: Total time spent is greater than 50% in coordination of care (as documented) at patient's floor/unit and/or counseling patient: Coding Level of Care Code 16038 Subseq Hosp Care Lvl 2 Diagnoses Rectal bleeding K62.5 Anemia due to acute blood loss D62 Anasarca R60.1 Type 1 diabetes E10.9 CAD (coronary artery disease), [place] coronary artery I25.10 GERD (gastroesophageal reflux disease) K21.9 Diastolic CHF I50.30 Deep vein thrombosis (DVT) of right lower extremity I82.401 Insulin pump status Z96.41 Hypothyroidism E03.9 Breast cancer C50.919 IPMN (intraductal papillary mucinous neoplasm) D49.0 Time Spent (min) 35
[2022-03-08] MEDS: FUROSEMIDE 40 MG/4 ML VIAL IV SCH (16:36)
[2022-03-08] MEDS: METOPROLOL SUCC 25MG EXT REL TAB PO SCH (20:59)
[2022-03-09] MEDS: LEVOTHYROXINE SODIUM 125 MCG TABLET PO SCH (05:43)
[2022-03-09] MEDS: oxyCODONE HCL IR 5 MG TAB (IMMEDIATE RELEASE) PO PRN ×2 (05:43→18:48)
[2022-03-09] MEDS: CHOLECALCIFEROL 5,000 UNITS 125 MCG TAB PO SCH (08:57)
[2022-03-09] MEDS: PSYLLIUM or GUAR GUM FIBER POWDER PACKET PO SCH (08:57)
[2022-03-09] MEDS: PANTOprazole 40 MG TAB PO SCH ×2 (08:57→20:19)
[2022-03-09] MEDS: MAGNESIUM OXIDE 400 MG TAB PO SCH ×2 (08:58→20:19)
[2022-03-09] MEDS: ENOXAPARIN INJ 40 MG/0.4 ML SYR SQ SCH (08:58)
[2022-03-09] MEDS: INSULIN ASPART PER UNIT SC SCH ×4 (09:12→20:51)
[2022-03-09] MEDS: LANTUS PER UNIT CHARGE SQ SCH (09:13)
[2022-03-09] MEDS: FUROSEMIDE 40 MG/4 ML VIAL IV SCH (09:21)
--- NOTE | 2022-03-09 09:30 | Pharmacy Report ---
Pharmacy Glycemic Short Note 2 - Date of Service March 09, 2022 - Glycemic Short BSG Results (Last 24 hours): 03/08/22 03/08/22 03/08/22 12:10 17:11 20:44 POC Glucose 157 H 160 H 118 H 03/09/22 08:05 POC Glucose 241 H OUTPATIENT ANTIDIABETIC REGIMEN: * Novolog insulin pump * Basal rates: * 2371-0531 = 0.45 units/hr * 9023-3325 = 0.55 units/hr * 7445-2499 = 0.50 units/hr * Total daily basal dose = 12 units/day * Carb Ratio: 15 * Sensitivity Factor: 55 * Goal range: 140-150 mg/dL * HbA1c = 8.7% (02/26/22) * Spoke extensively with patient at bedside on 02/26/22. Reports following with Karolina MckeonorSHIVA, at [facility] [place] [facility]. States she was due for an appointment recently but cancelled due to not feeling well which does appear to be true from the encounters I can see. Reports difficulty with DM management for years, especially recently with diagnosis and subsequent oreilly with cancer. States that basal rates were changed during last visit but cannot remember to what. I interrogated pump settings and found the settings listed above. States provider does not want her BSGs greater than 250 mg/dL. Average BSG at current A1c is 232 mg/dL so patient is likely not meeting this goal. Reports poor appetite in general since cancer diagnosis, especially over the last week. Changes sets every 3 days at home but states she needs to reorder supplies as she only has two sets left. Has not been using CGM as she finds it too difficult to operate. States she checks her BSG via fingerstick 4 times per day: upon wakening/before breakfast, 30-60 minutes after lunch and dinner, and then before bedtime. Instructed her to start checking BSG before all meals and before bedtime. ASSESSMENT: 03/09: * Colleen received 27 units of insulin yesterday, 9 units basal + 18 units bolus. BSGs were acceptable: 610-573-225-118 mg/dL. * Fasting BSG elevated at 241 mg/dL this AM. Spoke with patient who stated she had 2 packs of lizzeth crackers prior to AM accucheck. Given fastings have consistently been above goal for the last 72 hours, will increase basal slightly today. No change to Novolog. 03/07: * BSGs have been reasonably controlled over past 72 hours, with upward trend at lunchtime * Fasting BSG still elevated at 176 mg/dL, will increase tomorrow and tighten AM Novolog parameters PLAN FOR INPATIENT GLYCEMIC CONTROL: * Basal insulin * Lantus 10 units SC AM - starting tomorrow * Bolus insulin * NovoLog per scale ACHS or Q6hrs while NPO * Goal Range: Low 110 mg/dL - High 140 mg/dL * Correction Factor: 30 mg/dL/unit with breakfast, 45 mg/dL/unit with lunch, dinner, HS * Nutritional / Prandial insulin per carb ratio of 1 unit per 10 grams CHO consumed with breakfast 12 grams CHO consumed with lunch, dinner, HS
[2022-03-09] MEDS: ACETAMINOPHEN 325 MG TAB PO PRN (09:47)
--- NOTE | 2022-03-09 14:00 | Hospitalist Progress Note ---
Date of Service March 09, 2022 Assessment & Plan (1) Rectal bleeding: Plan: -Rectal bleeding occurred postoperatively after resumption of Xarelto after hemorrhoid surgery. -No further bleeding episodes -However, the jesus rectal area still looks swollen and red -Xarelto remains on hold. -CT A/P with IV contrast - nonspecific proctitis (treated with ceftriaxone for 5 days for empiric coverage). - Appreciate surgery management with packing placed. Oxycodone IR as needed for pain (2) Anemia due to acute blood loss: Plan: She has received at least 5 units of packed red blood cells this admission. Hemoglobin is now stable. Will follow. No overt active bleeding seen. Xarelto remains on hold. (3) Anasarca: Plan: Bilateral leg and abdominal wall edema could be multifactorial Worsening Diastolic Herat failure will obtain 2 d ECHO Lasix 40mg daily Kobi wraps have been discontinued, the seem to be worsening her jesus rectal edema (4) Type 1 diabetes: Plan: HbA1C 9.0 in October. Holding insulin pump and Dexcom. Appreciate pharmacy consult for glycemic control - planning on continuing basal bolus insulin at [facility] as she is lacking supplies for her pump at this time. (5) CAD (coronary artery disease), [place] coronary artery: Plan: Stable. Medical management (6) GERD (gastroesophageal reflux disease): Plan: PPI therapy (7) Diastolic CHF: Plan: Stable. Monitor intake and output. Medical management (8) Deep vein thrombosis (DVT) of right lower extremity: Plan: History of. Xarelto on hold due to rectal bleeding (9) Insulin pump status: Plan: Pump has been deactivated. She is on basal bolus insulin at this time (10) Hypothyroidism: Plan: Continue levothyroxine 125 mcg daily. Stable (11) Breast cancer: Plan: Stage IV invasive ductal carcinoma. Last chemotherapy (Enhertu) was 4 weeks ago per patient recollection. Unlikely contributing towards current anemia. (12) IPMN (intraductal papillary mucinous neoplasm): Plan: See above Plan VTE Prophylaxis - lovenox SQ Diet - T2DM, heart healthy Disposition - SNF at discharge. Admission and Anticipated Discharge Date Admission Date: February 26, 2022 Subjective patient seen and examined, complains of worsening jesus rectal pain Review of Systems Review of Systems: All systems reviewed are negative, apart from the ones contained in the history. Physical Exam Physical Exam: The patient is awake, alert and oriented 3, well developed and well nourished, normocephalic and atraumatic, lying in bed and in no acute distress. HEENT--PERRL, EOMI, mucous membranes and oropharynx mildly dry Neck--supple. No JVD. No bruits. Thyroid normal, trachea midline, no adenopathy. Heart--normal S1 and S2. No murmurs, rubs or gallops. Lungs--clear bilaterally, no respiratory distress, no accessory muscle use. Abdomen--normal bowel sounds and soft. Mild epigastric and left sided abdominal pain, abdominal wall edema Perinium: jesus rectal redness, swelling, wound stitches Extremities--bilateral leg edema Dermatologic--normal skin turgor, normal color, no abnormal lymph nodes, no rash. Neurologic--cranial nerves II through XII grossly intact. Rheumatologic--normal range of motion. Psychiatric--normal affect. Results & Data Results & Data ([facility]) Vital Signs (Past 12 Hours) Vital Signs Temp Pulse Resp BP Pulse Ox O2 Del Method 03/09/22 07:35 Room Air 03/09/22 07:05 99.1 F 89 18 135/62 92 Room Air PG Care Time/CCT Total # of Minutes Spent Total Time Spent with Patient: Total time spent is greater than 50% in coordination of care (as documented) at patient's floor/unit and/or counseling patient: Coding Level of Care Code 96614 Subseq Hosp Care Lvl 2 Diagnoses Rectal bleeding K62.5 Anemia due to acute blood loss D62 Anasarca R60.1 Type 1 diabetes E10.9 CAD (coronary artery disease), [place] coronary artery I25.10 GERD (gastroesophageal reflux disease) K21.9 Diastolic CHF I50.30 Deep vein thrombosis (DVT) of right lower extremity I82.401 Insulin pump status Z96.41 Hypothyroidism E03.9 Breast cancer C50.919 IPMN (intraductal papillary mucinous neoplasm) D49.0 Time Spent (min) 35
--- NOTE | 2022-03-09 14:58 | Surgery Progress Note ---
Date of Service March 09, 2022 Assessment & Plan (1) H/O hemorrhoidectomy: Plan: Pt is s/p hemorrhoidectomy at [place] on 02/18/22 who developed rectal bleeding s/p resumption of her Xarelto, this was managed by holding her blood thinners and with blood transfusions. She has been stabilized without necessitating surgical intervention. - Today we have been reached out to for worsening appearance of wound with some bloody drainage. Patient denies any blood clots/bloody BM's. Hbg has been stable in addition to her vitals. She is on qd lovenox currently - Gabby-anal area is reddened and tender. No active bleeding noted. - We will order a CT pelvis to rule out any underlying fluid collections/abscess - Would continue conservative wound care with tucks pads, and tid sitz baths. Wound care has been previously consulted for their opinions. Would off-load the area for comfort as possible - No plans for surgical intervention at this time. Recommend close follow up with her [place] surgeon upon discharge Admission and Anticipated Discharge Date Admission Date: February 26, 2022 Subjective Patient examined. Says her pain has been a little worse. It not good this AM, especially after getting washed up and the narcotic didn't help. Now that she is lying on her side and the pressure is off of it the pain has improved. Denies any recent blood or bloody BM's. Physical Exam Physical Exam: awake/alert Skin: area surrounding anus appears red/swollen. no active drainage noted in rectum, there was + soft stool. tender to palpation Results & Data ([facility]) Vital Signs (Past 12 Hours) Vital Signs Temp Pulse Resp BP Pulse Ox O2 Del Method 03/09/22 07:35 Room Air 03/09/22 07:05 37.3 C 89 18 135/62 92 Room Air PG Care Time/CCT Total # of Minutes Spent Total Time Spent with Patient: Total time spent is greater than 50% in coordination of care (as documented) at patient's floor/unit and/or counseling patient: Coding Level of Care Code 10525 Subseq Hosp Care Lvl 1 Diagnoses H/O hemorrhoidectomy Z98.890
[2022-03-09 15:47] LABS: BUN Creatinine Ratio 27.4 (10-20); Calcium 7.5 mg/dl (8.5-10.1); Creatinine Clr Calc Pharmacy 38.3 ml/min; Est GFR (African American) 50.6 ml/min; Est GFR (Non-African American) 43.7 ml/min; Potassium 5.2 mmol/L (3.5-5.1)
[2022-03-09] MEDS ORDERED: OPTIRAY 350 100ml IV ONE (16:05)
--- NOTE | 2022-03-09 16:54 | CT Scan Report ---
PELVIS CT WITH CONTRAST CLINICAL HISTORY: hemorrhoid sx; worse wound/pain. r/o abscess/fluid COMPARISON STUDY: CT of the abdomen and pelvis February 26, 2022. TECHNIQUE: Axial images of the pelvis were obtained following intravenous injection of 88 cc of Optir ay. IV infiltrate was noted. The patient's nurse was notified of the infiltration. Automated exposure control was utilized for the study. A dose lowering technique was utilized adhering to the principl es of TAWNY. FINDINGS: Marked anasarca is noted. A small amount of ascites within the lower abdomen and pelvis is present. Gas and fluid balloon within the bladder. 3 cannulated screws fixate the femoral neck fractu re. The appearance is unchanged. Fracture is incompletely healed. No acute fracture within the pelvis is noted. There is no evidence for acute osteomyelitis. Several locules of subcutaneous gas of the l ower anterior abdominal wall are likely related to injections. Of note, there is an apparent stool-fi lled tract which extends between the anus to the medial left gluteal fold. This is located several ce ntimeters proximal to the anal verge. The neural drainable fluid collection is identified. No additio nal fistulous tracts are identified. Caliber and wall thickness of visualized small and large bowel a re normal. This exam is compromised by diminished contrast enhancement due to IV infiltration. A mode rate amount of stool is noted within visualized portions of the colon and rectum. IMPRESSION: 1. Apparent stool-filled tract/fistula which extends from the anus to the medial left gluteal fold. 2. No drainable fluid collection identified. 3. Marked anasarca. Small amount of ascites within the lower abdomen and pelvis. 4. Exam compromised given diminished contrast enhancement due to IV infiltration. ACT 112: Negative or not required by law. Electronically signed by: Albin Smith M.D. 03/09/2022 4:53 PM
[2022-03-09] MEDS: METOPROLOL SUCC 25MG EXT REL TAB PO SCH (20:20)
[2022-03-10] MEDS: LEVOTHYROXINE SODIUM 125 MCG TABLET PO SCH (05:30)
[2022-03-10] MEDS: oxyCODONE HCL IR 5 MG TAB (IMMEDIATE RELEASE) PO PRN ×3 (05:30→21:44)
[2022-03-10] MEDS: CHOLECALCIFEROL 5,000 UNITS 125 MCG TAB PO SCH (08:41)
[2022-03-10] MEDS: MAGNESIUM OXIDE 400 MG TAB PO SCH ×2 (08:41→21:45)
[2022-03-10] MEDS: PANTOprazole 40 MG TAB PO SCH ×2 (08:41→21:44)
[2022-03-10] MEDS: INSULIN ASPART PER UNIT SC SCH ×4 (08:46→21:38)
[2022-03-10] MEDS: LANTUS PER UNIT CHARGE SQ SCH (08:47)
[2022-03-10] MEDS: ENOXAPARIN INJ 40 MG/0.4 ML SYR SQ SCH (08:50)
[2022-03-10] MEDS: PSYLLIUM or GUAR GUM FIBER POWDER PACKET PO SCH (08:53)
[2022-03-10 09:28] LABS: Hematocrit (blood only) 29.6 % (34.1-44.9); Hemoglobin 9.9 g/dl (12.0-16.0); Mean Corpuscular Hemoglobin 30.8 pg (25.0-34.0); Mean Corpuscular Hgb Conc 33.4 g/dL (32.0-36.0); Mean Corpuscular Volume 92.2 fL (80.0-100.0); Mean Platelet Volume 9.2 fL (9.4-12.3); Platelet Count 310 K/uL (130-400); RDW Coefficient of Variation 16.6 % (11.5-14.5); Red Blood Count 3.21 M/uL (3.93-5.22); White Blood Count 11.67 K/ul (4.8-10.8)
[2022-03-10] MEDS: FUROSEMIDE 40 MG/4 ML VIAL IV SCH (09:28)
[2022-03-10 09:50] LABS: BUN Creatinine Ratio 27.3 (10-20); Calcium 7.9 mg/dl (8.5-10.1); Creatinine Clr Calc Pharmacy 33.8 ml/min; Est GFR (African American) 43.7 ml/min; Est GFR (Non-African American) 37.7 ml/min; Potassium 5.3 mmol/L (3.5-5.1)
[2022-03-10] MEDS: metroNIDAZOLE 500 MG/100 ML BAG IV SCH ×2 (09:58→17:24)
[2022-03-10] MEDS: HEPARIN 100 UNIT/ML 5ML FLUSH FLUSH PRN ×2 (11:01→18:28)
--- NOTE | 2022-03-10 11:55 | Pharmacy Report ---
Pharmacy Glycemic Short Note 2 - Date of Service March 10, 2022 - Glycemic Short BSG Results (Last 24 hours): 03/09/22 03/09/22 03/09/22 12:05 15:07 17:11 Glucose 220 H POC Glucose 242 H 203 H 03/09/22 03/10/22 03/10/22 20:42 08:06 09:04 Glucose 169 H POC Glucose 127 H 151 H 03/10/22 11:39 Glucose POC Glucose 143 H OUTPATIENT ANTIDIABETIC REGIMEN: * Novolog insulin pump * Basal rates: * 1509-4382 = 0.45 units/hr * 0594-0184 = 0.55 units/hr * 5059-9351 = 0.50 units/hr * Total daily basal dose = 12 units/day * Carb Ratio: 15 * Sensitivity Factor: 55 * Goal range: 140-150 mg/dL * HbA1c = 8.7% (02/26/22) * Spoke extensively with patient at bedside on 02/26/22. Reports following with Karolina WesSHIVA, at [facility] [place] [facility]. States she was due for an appointment recently but cancelled due to not feeling well which does appear to be true from the encounters I can see. Reports difficulty with DM management for years, especially recently with diagnosis and subsequent oreilly with cancer. States that basal rates were changed during last visit but cannot remember to what. I interrogated pump settings and found the settings listed above. States provider does not want her BSGs greater than 250 mg/dL. Average BSG at current A1c is 232 mg/dL so patient is likely not meeting this goal. Reports poor appetite in general since cancer diagnosis, especially over the last week. Changes sets every 3 days at home but states she needs to reorder supplies as she only has two sets left. Has not been using CGM as she finds it too difficult to operate. States she checks her BSG via fingerstick 4 times per day: upon wakening/before breakfast, 30-60 minutes after lunch and dinner, and then before bedtime. Instructed her to start checking BSG before all meals and before bedtime. ASSESSMENT: 03/10/22 * Patient's BSGs yesterday were [phone] mg/dL. BSGs today have been 151- 143 mg/dL. * Patient received 28 units of insulin yesterday with 10 units of basal and 18 units of bolus. * Basal increased yesterday so continue. * BSGs relatively stable yesterday so continue Novolog parameters 03/09: * Colleen received 27 units of insulin yesterday, 9 units basal + 18 units bolus. BSGs were acceptable: 316-994-296-118 mg/dL. * Fasting BSG elevated at 241 mg/dL this AM. Spoke with patient who stated she had 2 packs of lizzeth crackers prior to AM accucheck. Given fastings have consistently been above goal for the last 72 hours, will increase basal slightly today. No change to Novolog. 03/07: * BSGs have been reasonably controlled over past 72 hours, with upward trend at lunchtime * Fasting BSG still elevated at 176 mg/dL, will increase tomorrow and tighten AM Novolog parameters PLAN FOR INPATIENT GLYCEMIC CONTROL: * Basal insulin * Lantus 10 units SC AM * Bolus insulin * NovoLog per scale ACHS or Q6hrs while NPO * Goal Range: Low 110 mg/dL - High 140 mg/dL * Correction Factor: 30 mg/dL/unit with breakfast, 45 mg/dL/unit with lunch, dinner, HS * Nutritional / Prandial insulin per carb ratio of 1 unit per 10 grams CHO consumed with breakfast 12 grams CHO consumed with lunch, dinner, HS
--- NOTE | 2022-03-10 14:02 | Hospitalist Progress Note ---
Date of Service March 10, 2022 Assessment & Plan (1) Rectal bleeding: Plan: -Rectal bleeding occurred postoperatively after resumption of Xarelto following hemorrhoid surgery. -No further bleeding episodes noted -However, the jesus rectal area still looks swollen and red -CT pelvis 03/09 shows Apparent stool-filled tract/fistula which extends from the anus to the medial left gluteal fold -Xarelto remains on hold. -although completed a 5 day course of Ceftriaxone, will continue IV Flagyl for now in view of the suspected fistula -Per gen surgery and wound care, continue sitz baths TID -Outpatient follow up with her [place] surgeons (2) Anemia due to acute blood loss: Plan: She has received at least 5 units of packed red blood cells this admission. Hemoglobin is now stable. Will follow. No overt active bleeding seen. Xarelto remains on hold. (3) Anasarca: Plan: Bilateral leg and abdominal wall edema could be multifactorial Worsening Diastolic Heart failure will obtain 2 d ECHO Lasix 40mg daily Kobi wraps have been discontinued, the seem to be worsening her jesus rectal edema (4) Type 1 diabetes: Plan: HbA1C 9.0 in October. Holding insulin pump and Dexcom. Appreciate pharmacy consult for glycemic control - planning on continuing basal bolus insulin at SNF as she is lacking supplies for her pump at this time. (5) CAD (coronary artery disease), [place] coronary artery: Plan: Stable. Medical management (6) GERD (gastroesophageal reflux disease): Plan: PPI therapy (7) Diastolic CHF: Plan: Stable. Monitor intake and output. Medical management (8) Deep vein thrombosis (DVT) of right lower extremity: Plan: History of. Xarelto on hold due to rectal bleeding (9) Insulin pump status: Plan: Pump has been deactivated. She is on basal bolus insulin at this time (10) Hypothyroidism: Plan: Continue levothyroxine 125 mcg daily. Stable (11) Breast cancer: Plan: Stage IV invasive ductal carcinoma. Last chemotherapy (Enhertu) was 4 weeks ago per patient recollection. Unlikely contributing towards current anemia. (12) IPMN (intraductal papillary mucinous neoplasm): Plan: See above Plan VTE Prophylaxis - lovenox SQ Diet - T2DM, heart healthy Disposition - SNF at discharge. Admission and Anticipated Discharge Date Admission Date: February 26, 2022 Subjective patient seen and examined, says her buttocks no longer hurt as much Review of Systems Review of Systems: All systems reviewed are negative, apart from the ones contained in the history. Physical Exam Physical Exam: The patient is awake, alert and oriented 3, well developed and well nourished, normocephalic and atraumatic, lying in bed and in no acute distress. HEENT--PERRL, EOMI, mucous membranes and oropharynx mildly dry Neck--supple. No JVD. No bruits. Thyroid normal, trachea midline, no adenopathy. Heart--normal S1 and S2. No murmurs, rubs or gallops. Lungs--clear bilaterally, no respiratory distress, no accessory muscle use. Abdomen--normal bowel sounds and soft. Mild epigastric and left sided abdominal pain, abdominal wall edema Perinium: jesus rectal redness, swelling, wound stitches Extremities--bilateral leg edema Dermatologic--normal skin turgor, normal color, no abnormal lymph nodes, no rash. Neurologic--cranial nerves II through XII grossly intact. Rheumatologic--normal range of motion. Psychiatric--normal affect. Results & Data Results & Data ([facility]) Vital Signs (Past 12 Hours) Vital Signs Temp Pulse Resp BP Pulse Ox O2 Del Method 03/10/22 07:50 Room Air 03/10/22 08:34 98.2 F 92 H 17 112/59 L 98 Room Air PG Care Time/CCT Total # of Minutes Spent Total Time Spent with Patient: Total time spent is greater than 50% in coordination of care (as documented) at patient's floor/unit and/or counseling patient: Coding Level of Care Code 34802 Subseq Hosp Care Lvl 2 Diagnoses Rectal bleeding K62.5 Anemia due to acute blood loss D62 Anasarca R60.1 Type 1 diabetes E10.9 CAD (coronary artery disease), [place] coronary artery I25.10 GERD (gastroesophageal reflux disease) K21.9 Diastolic CHF I50.30 Deep vein thrombosis (DVT) of right lower extremity I82.401 Insulin pump status Z96.41 Hypothyroidism E03.9 Breast cancer C50.919 IPMN (intraductal papillary mucinous neoplasm) D49.0 Time Spent (min) 35
[2022-03-10] MEDS ORDERED: ALBUT/IPRATROP 3MG/0.5MG NEB 3 ML VIAL NEB SCH (19:00)
[2022-03-10] MEDS: METOPROLOL SUCC 25MG EXT REL TAB PO SCH (21:45)
[2022-03-11] MEDS: metroNIDAZOLE 500 MG/100 ML BAG IV SCH ×3 (02:45→18:24)
[2022-03-11] MEDS: LEVOTHYROXINE SODIUM 125 MCG TABLET PO SCH (05:36)
[2022-03-11] MEDS: oxyCODONE HCL IR 5 MG TAB (IMMEDIATE RELEASE) PO PRN ×2 (05:38→21:38)
[2022-03-11] MEDS: MAGNESIUM OXIDE 400 MG TAB PO SCH ×2 (08:42→21:26)
[2022-03-11] MEDS: PSYLLIUM or GUAR GUM FIBER POWDER PACKET PO SCH (08:42)
[2022-03-11] MEDS: CHOLECALCIFEROL 5,000 UNITS 125 MCG TAB PO SCH (08:42)
[2022-03-11] MEDS: ENOXAPARIN INJ 40 MG/0.4 ML SYR SQ SCH (08:42)
[2022-03-11] MEDS: FUROSEMIDE 40 MG/4 ML VIAL IV SCH (08:49)
[2022-03-11] MEDS: LANTUS PER UNIT CHARGE SQ SCH (09:11)
[2022-03-11] MEDS: INSULIN ASPART PER UNIT SC SCH ×4 (09:12→21:29)
[2022-03-11] MEDS: PANTOprazole 40 MG TAB PO SCH ×2 (09:16→21:26)
[2022-03-11] MEDS: ALBUT/IPRATROP 3MG/0.5MG NEB 3 ML VIAL NEB PRN (10:33)
[2022-03-11 10:49] LABS: BUN Creatinine Ratio 25.4 (10-20); Calcium 7.7 mg/dl (8.5-10.1); Creatinine Clr Calc Pharmacy 32.4 ml/min; Est GFR (African American) 41.5 ml/min; Est GFR (Non-African American) 35.8 ml/min; Potassium 4.6 mmol/L (3.5-5.1)
[2022-03-11] MEDS: HEPARIN 100 UNIT/ML 5ML FLUSH FLUSH PRN (11:32)
--- NOTE | 2022-03-11 13:16 | XCELERA ---
[id number]
--- NOTE | 2022-03-11 14:28 | Hospitalist Progress Note ---
Date of Service March 11, 2022 Assessment & Plan (1) Rectal bleeding: Plan: -Rectal bleeding occurred postoperatively after resumption of Xarelto following hemorrhoid surgery. 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 -although completed a 5 day course of Ceftriaxone, will continue IV Flagyl for now in view of the suspected fistula -Per gen surgery and wound care, continue sitz baths TID -Outpatient follow up with her [place] surgeons (2) Anemia due to acute blood loss: Plan: She has received at least 5 units of packed red blood cells this admission. Hemoglobin is now stable. Will follow. No overt active bleeding seen. Xarelto remains on hold. (3) SETH (acute kidney injury): Plan: worsening SETH most likley due to Diuretics monitor closely (4) Anasarca: Plan: Bilateral leg and abdominal wall edema could be multifactorial Lasix 40mg daily Much improved (5) Type 1 diabetes: Plan: HbA1C 9.0 in October. Holding insulin pump and Dexcom. Appreciate pharmacy consult for glycemic control - planning on continuing basal bolus insulin at SNF as she is lacking supplies for her pump at this time. (6) CAD (coronary artery disease), [place] coronary artery: Plan: Stable. Medical management (7) GERD (gastroesophageal reflux disease): Plan: PPI therapy (8) Diastolic CHF: Plan: Stable. Monitor intake and output. Medical management (9) Deep vein thrombosis (DVT) of right lower extremity: Plan: History of. Xarelto on hold due to rectal bleeding (10) Insulin pump status: Plan: Pump has been deactivated. She is on basal bolus insulin at this time (11) Hypothyroidism: Plan: Continue levothyroxine 125 mcg daily. Stable (12) Breast cancer: Plan: Stage IV invasive ductal carcinoma. Last chemotherapy (Enhertu) was 4 weeks ago per patient recollection. Unlikely contributing towards current anemia. (13) IPMN (intraductal papillary mucinous neoplasm): Plan: See above Plan VTE Prophylaxis - lovenox SQ Diet - T2DM, heart healthy Disposition - SNF at discharge. Admission and Anticipated Discharge Date Admission Date: February 26, 2022 Subjective patient seen and examined, says her buttocks no longer hurt as much Review of Systems Review of Systems: All systems reviewed are negative, apart from the ones contained in the history. Physical Exam Physical Exam: The patient is awake, alert and oriented 3, well developed and well nourished, normocephalic and atraumatic, lying in bed and in no acute distress. HEENT--PERRL, EOMI, mucous membranes and oropharynx mildly dry Neck--supple. No JVD. No bruits. Thyroid normal, trachea midline, no adenopathy. Heart--normal S1 and S2. No murmurs, rubs or gallops. Lungs--clear bilaterally, no respiratory distress, no accessory muscle use. Abdomen--normal bowel sounds and soft. Mild epigastric and left sided abdominal pain, abdominal wall edema Perinium: jesus rectal redness, swelling, wound stitches Extremities--bilateral leg edema Dermatologic--normal skin turgor, normal color, no abnormal lymph nodes, no rash. Neurologic--cranial nerves II through XII grossly intact. Rheumatologic--normal range of motion. Psychiatric--normal affect. Results & Data Results & Data ([facility]) Vital Signs (Past 12 Hours) Vital Signs Temp Pulse Resp BP Pulse Ox O2 Del Method 03/11/22 09:00 Room Air 03/11/22 10:35 78 18 92 Room Air 03/11/22 09:31 97.9 F 81 16 112/64 95 Room Air 03/11/22 07:56 98.2 F 71 16 106/57 L 92 Room Air 03/11/22 07:33 97.9 F 73 16 98/57 L 92 Room Air PG Care Time/CCT Total # of Minutes Spent Total Time Spent with Patient: Total time spent is greater than 50% in coordination of care (as documented) at patient's floor/unit and/or counseling patient: Coding Level of Care Code 45295 Subseq Hosp Care Lvl 2 Diagnoses Rectal bleeding K62.5 Anemia due to acute blood loss D62 SETH (acute kidney injury) N17.9 Anasarca R60.1 Type 1 diabetes E10.9 CAD (coronary artery disease), [place] coronary artery I25.10 GERD (gastroesophageal reflux disease) K21.9 Diastolic CHF I50.30 Deep vein thrombosis (DVT) of right lower extremity I82.401 Insulin pump status Z96.41 Hypothyroidism E03.9 Breast cancer C50.919 IPMN (intraductal papillary mucinous neoplasm) D49.0 Time Spent (min) 35
[2022-03-11] MEDS: METOPROLOL SUCC 25MG EXT REL TAB PO SCH (21:26)
[2022-03-12] MEDS: metroNIDAZOLE 500 MG/100 ML BAG IV SCH ×3 (01:52→18:25)
[2022-03-12] MEDS: oxyCODONE HCL IR 5 MG TAB (IMMEDIATE RELEASE) PO PRN ×3 (05:58→21:35)
[2022-03-12] MEDS: LEVOTHYROXINE SODIUM 125 MCG TABLET PO SCH (05:59)
[2022-03-12 07:32] LABS: BUN Creatinine Ratio 29.4 (10-20); Calcium 7.6 mg/dl (8.5-10.1); Creatinine Clr Calc Pharmacy 37.5 ml/min; Est GFR (African American) 49.6 ml/min; Est GFR (Non-African American) 42.8 ml/min; Potassium 4.4 mmol/L (3.5-5.1)
[2022-03-12] MEDS: LANTUS PER UNIT CHARGE SQ SCH (10:12)
[2022-03-12] MEDS: INSULIN ASPART PER UNIT SC SCH ×4 (10:12→21:40)
[2022-03-12] MEDS: MAGNESIUM OXIDE 400 MG TAB PO SCH ×2 (10:14→21:32)
[2022-03-12] MEDS: PANTOprazole 40 MG TAB PO SCH ×2 (10:14→21:31)
[2022-03-12] MEDS: FUROSEMIDE 40 MG/4 ML VIAL IV SCH (10:15)
[2022-03-12] MEDS: ENOXAPARIN INJ 40 MG/0.4 ML SYR SQ SCH (10:15)
[2022-03-12] MEDS: CHOLECALCIFEROL 5,000 UNITS 125 MCG TAB PO SCH (10:15)
[2022-03-12] MEDS: PSYLLIUM or GUAR GUM FIBER POWDER PACKET PO SCH (10:16)
--- NOTE | 2022-03-12 12:15 | Pharmacy Report ---
Pharmacy Glycemic Short Note 2 - Date of Service March 12, 2022 - Glycemic Short BSG Results (Last 24 hours): 03/11/22 03/11/22 03/12/22 16:51 21:18 06:50 Glucose 77 POC Glucose 159 H 144 H 03/12/22 03/12/22 08:08 11:42 Glucose POC Glucose 94 131 H OUTPATIENT ANTIDIABETIC REGIMEN: * Novolog insulin pump * Basal rates: * 4164-9388 = 0.45 units/hr * 4737-3371 = 0.55 units/hr * 2071-3232 = 0.50 units/hr * Total daily basal dose = 12 units/day * Carb Ratio: 15 * Sensitivity Factor: 55 * Goal range: 140-150 mg/dL * HbA1c = 8.7% (02/26/22) ASSESSMENT: 03/12: * Colleen received a total of 26 units of insulin yesterday, 10 units basal + 16 units bolus. * Fasting BSG was 94 mg/dL this AM. Will reduce basal insulin by 10%. * No changes in Novolog. 03/10: * Patient's BSGs yesterday were [phone] mg/dL. BSGs today have been 151- 143 mg/dL. * Patient received 28 units of insulin yesterday with 10 units of basal and 18 units of bolus. * Basal increased yesterday so continue. * BSGs relatively stable yesterday so continue Novolog parameters 03/09: * Colleen received 27 units of insulin yesterday, 9 units basal + 18 units bolus. BSGs were acceptable: [phone] mg/dL. * Fasting BSG elevated at 241 mg/dL this AM. Spoke with patient who stated she had 2 packs of lizzeth crackers prior to AM accucheck. Given fastings have consistently been above goal for the last 72 hours, will increase basal slightly today. No change to Novolog. PLAN FOR INPATIENT GLYCEMIC CONTROL: * Basal insulin * Lantus 9 units SC AM * Bolus insulin * NovoLog per scale ACHS or Q6hrs while NPO * Goal Range: Low 110 mg/dL - High 140 mg/dL * Correction Factor: 30 mg/dL/unit with breakfast, 45 mg/dL/unit with lunch, dinner, HS * Nutritional / Prandial insulin per carb ratio of 1 unit per 10 grams CHO consumed with breakfast 12 grams CHO consumed with lunch, dinner, HS
[2022-03-12] MEDS: HEPARIN 100 UNIT/ML 5ML FLUSH FLUSH PRN ×2 (12:27→19:55)
--- NOTE | 2022-03-12 14:57 | Hospitalist Progress Note ---
Date of Service March 12, 2022 Assessment & Plan (1) Rectal bleeding: Plan: -Rectal bleeding occurred postoperatively after resumption of Xarelto following hemorrhoid surgery. 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 -although completed a 5 day course of Ceftriaxone, will continue IV Flagyl for now in view of the suspected fistula -Per gen surgery and wound care, continue sitz baths TID -Outpatient follow up with her [place] surgeons (2) Anemia due to acute blood loss: Plan: She has received at least 5 units of packed red blood cells this admission. Hemoglobin is now stable. Will follow. No overt active bleeding seen. Xarelto remains on hold. (3) SETH (acute kidney injury): Plan: now resolved (4) Anasarca: Plan: Bilateral leg and abdominal wall edema could be multifactorial Last ECHO showed EF .70%, hyperdynamic Lasix 40mg daily Much improved (5) Type 1 diabetes: Plan: HbA1C 9.0 in October. Holding insulin pump and Dexcom. Appreciate pharmacy consult for glycemic control - planning on continuing basal bolus insulin at SNF as she is lacking supplies for her pump at this time. (6) CAD (coronary artery disease), [place] coronary artery: Plan: Stable. Medical management (7) GERD (gastroesophageal reflux disease): Plan: PPI therapy (8) Diastolic CHF: Plan: Stable. Monitor intake and output. Medical management (9) Deep vein thrombosis (DVT) of right lower extremity: Plan: History of. Xarelto on hold due to rectal bleeding (10) Insulin pump status: Plan: Pump has been deactivated. She is on basal bolus insulin at this time (11) Hypothyroidism: Plan: Continue levothyroxine 125 mcg daily. Stable (12) Breast cancer: Plan: Stage IV invasive ductal carcinoma. Last chemotherapy (Enhertu) was 4 weeks ago per patient recollection. Unlikely contributing towards current anemia. (13) IPMN (intraductal papillary mucinous neoplasm): Plan: See above Plan VTE Prophylaxis - lovenox SQ Diet - T2DM, heart healthy Disposition - SNF at discharge. Admission and Anticipated Discharge Date Admission Date: February 26, 2022 Subjective patient seen and examined, says her buttocks no longer hurt as much, feels much better Review of Systems Review of Systems: All systems reviewed are negative, apart from the ones contained in the history. Physical Exam Physical Exam: The patient is awake, alert and oriented 3, well developed and well nourished, normocephalic and atraumatic, lying in bed and in no acute distress. HEENT--PERRL, EOMI, mucous membranes and oropharynx mildly dry Neck--supple. No JVD. No bruits. Thyroid normal, trachea midline, no adenopathy. Heart--normal S1 and S2. No murmurs, rubs or gallops. Lungs--clear bilaterally, no respiratory distress, no accessory muscle use. Abdomen--normal bowel sounds and soft. Mild epigastric and left sided abdominal pain, abdominal wall edema Perinium: jesus rectal redness, swelling, wound stitches Extremities--bilateral leg edema Dermatologic--normal skin turgor, normal color, no abnormal lymph nodes, no rash. Neurologic--cranial nerves II through XII grossly intact. Rheumatologic--normal range of motion. Psychiatric--normal affect. Results & Data Results & Data ([facility]) Vital Signs (Past 12 Hours) Vital Signs Temp Pulse Resp BP Pulse Ox O2 Del Method 03/12/22 09:10 98.6 F 81 18 120/68 96 Room Air 03/12/22 07:20 Room Air 03/12/22 07:11 98.1 F 73 18 99/59 L 95 Room Air PG Care Time/CCT Total # of Minutes Spent Total Time Spent with Patient: Total time spent is greater than 50% in coordination of care (as documented) at patient's floor/unit and/or counseling patient: Coding Level of Care Code 92032 Subseq Hosp Care Lvl 2 Diagnoses Rectal bleeding K62.5 Anemia due to acute blood loss D62 SETH (acute kidney injury) N17.9 Anasarca R60.1 Type 1 diabetes E10.9 CAD (coronary artery disease), [place] coronary artery I25.10 GERD (gastroesophageal reflux disease) K21.9 Diastolic CHF I50.30 Deep vein thrombosis (DVT) of right lower extremity I82.401 Insulin pump status Z96.41 Hypothyroidism E03.9 Breast cancer C50.919 IPMN (intraductal papillary mucinous neoplasm) D49.0 Time Spent (min) 35
[2022-03-12] MEDS: METOPROLOL SUCC 25MG EXT REL TAB PO SCH (21:31)
[2022-03-13] MEDS: metroNIDAZOLE 500 MG/100 ML BAG IV SCH ×3 (02:13→18:17)
[2022-03-13] MEDS: HEPARIN 100 UNIT/ML 5ML FLUSH FLUSH PRN ×3 (05:24→19:33)
[2022-03-13] MEDS: LEVOTHYROXINE SODIUM 125 MCG TABLET PO SCH (05:25)
[2022-03-13 06:36] LABS: BUN Creatinine Ratio 27.4 (10-20); Calcium 7.6 mg/dl (8.5-10.1); Est GFR (African American) 47.2 ml/min; Est GFR (Non-African American) 40.7 ml/min; Potassium 4.3 mmol/L (3.5-5.1)
[2022-03-13] MEDS: CHOLECALCIFEROL 5,000 UNITS 125 MCG TAB PO SCH (09:12)
[2022-03-13] MEDS: MAGNESIUM OXIDE 400 MG TAB PO SCH ×2 (09:13→21:22)
[2022-03-13] MEDS: ENOXAPARIN INJ 40 MG/0.4 ML SYR SQ SCH (09:13)
[2022-03-13] MEDS: FUROSEMIDE 40 MG TAB PO SCH (09:13)
[2022-03-13] MEDS: PSYLLIUM or GUAR GUM FIBER POWDER PACKET PO SCH (09:14)
[2022-03-13] MEDS: PANTOprazole 40 MG TAB PO SCH ×2 (09:14→21:22)
[2022-03-13] MEDS: INSULIN ASPART PER UNIT SC SCH ×4 (09:22→21:20)
[2022-03-13] MEDS: LANTUS PER UNIT CHARGE SQ SCH (09:23)
[2022-03-13] MEDS: ALBUT/IPRATROP 3MG/0.5MG NEB 3 ML VIAL NEB PRN (09:37)
--- NOTE | 2022-03-13 14:02 | Hospitalist Progress Note ---
Date of Service March 13, 2022 Assessment & Plan (1) Rectal bleeding: Plan: -Rectal bleeding occurred postoperatively after resumption of Xarelto following hemorrhoid surgery. 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 -although completed a 5 day course of Ceftriaxone, will continue IV Flagyl for now in view of the suspected fistula -Per gen surgery and wound care, continue sitz baths TID -Outpatient follow up with her [place] surgeons (2) Anemia due to acute blood loss: Plan: She has received at least 5 units of packed red blood cells this admission. Hemoglobin is now stable. Will follow. No overt active bleeding seen. Xarelto remains on hold. (3) SETH (acute kidney injury): Plan: now resolved (4) Vaginal discharge: Plan: from long standing vaginal pessary evaluated by OBGYN, took a swab growing justen will treat with a one time dose of 150mg Diflucan (5) Anasarca: Plan: Bilateral leg and abdominal wall edema could be multifactorial Last ECHO showed EF .70%, hyperdynamic Lasix 40mg daily Much improved (6) Type 1 diabetes: Plan: HbA1C 9.0 in October. Holding insulin pump and Dexcom. Appreciate pharmacy consult for glycemic control - planning on continuing basal bolus insulin at [facility] as she is lacking supplies for her pump at this time. (7) CAD (coronary artery disease), [place] coronary artery: Plan: Stable. Medical management (8) GERD (gastroesophageal reflux disease): Plan: PPI therapy (9) Diastolic CHF: Plan: Stable. Monitor intake and output. Medical management (10) Deep vein thrombosis (DVT) of right lower extremity: Plan: History of. Xarelto on hold due to rectal bleeding (11) Insulin pump status: Plan: Pump has been deactivated. She is on basal bolus insulin at this time (12) Hypothyroidism: Plan: Continue levothyroxine 125 mcg daily. Stable (13) Breast cancer: Plan: Stage IV invasive ductal carcinoma. Last chemotherapy (Enhertu) was 4 weeks ago per patient recollection. Unlikely contributing towards current anemia. (14) IPMN (intraductal papillary mucinous neoplasm): Plan: See above Plan VTE Prophylaxis - lovenox SQ Diet - T2DM, heart healthy Disposition - SNF at discharge. Admission and Anticipated Discharge Date Admission Date: February 26, 2022 Subjective patient seen and examined, says her buttocks no longer hurt as much, feels much better Review of Systems Review of Systems: All systems reviewed are negative, apart from the ones contained in the history. Physical Exam Physical Exam: The patient is awake, alert and oriented 3, well developed and well nourished, normocephalic and atraumatic, lying in bed and in no acute distress. HEENT--PERRL, EOMI, mucous membranes and oropharynx mildly dry Neck--supple. No JVD. No bruits. Thyroid normal, trachea midline, no adenopathy. Heart--normal S1 and S2. No murmurs, rubs or gallops. Lungs--clear bilaterally, no respiratory distress, no accessory muscle use. Abdomen--normal bowel sounds and soft. Mild epigastric and left sided abdominal pain, abdominal wall edema Perinium: jesus rectal redness, swelling, much improved Extremities--bilateral leg edema Dermatologic--normal skin turgor, normal color, no abnormal lymph nodes, no rash. Neurologic--cranial nerves II through XII grossly intact. Rheumatologic--normal range of motion. Psychiatric--normal affect. Results & Data Results & Data ([facility]) Vital Signs (Past 12 Hours) Vital Signs Temp Pulse Resp BP Pulse Ox O2 Del Method 03/13/22 08:20 Room Air 03/13/22 09:37 88 20 91 Room Air 03/13/22 08:27 98.1 F 78 18 127/67 92 Room Air 03/13/22 07:50 98.1 F 75 16 101/58 L 91 Room Air PG Care Time/CCT Total # of Minutes Spent Total Time Spent with Patient: Total time spent is greater than 50% in coordination of care (as documented) at patient's floor/unit and/or counseling patient: Coding Level of Care Code 56807 Subseq Hosp Care Lvl 2 Diagnoses Rectal bleeding K62.5 Anemia due to acute blood loss D62 SETH (acute kidney injury) N17.9 Vaginal discharge N89.8 Anasarca R60.1 Type 1 diabetes E10.9 CAD (coronary artery disease), [place] coronary artery I25.10 GERD (gastroesophageal reflux disease) K21.9 Diastolic CHF I50.30 Deep vein thrombosis (DVT) of right lower extremity I82.401 Insulin pump status Z96.41 Hypothyroidism E03.9 Breast cancer C50.919 IPMN (intraductal papillary mucinous neoplasm) D49.0 Time Spent (min) 35
[2022-03-13] MEDS ORDERED: FLUCONAZOLE 50 MG TAB PO ONE (14:15)
[2022-03-13] MEDS: oxyCODONE HCL IR 5 MG TAB (IMMEDIATE RELEASE) PO PRN (19:36)
[2022-03-13] MEDS: METOPROLOL SUCC 25MG EXT REL TAB PO SCH (21:41)
[2022-03-14] MEDS: metroNIDAZOLE 500 MG/100 ML BAG IV SCH ×3 (01:13→18:08)
[2022-03-14] MEDS: HEPARIN 100 UNIT/ML 5ML FLUSH FLUSH PRN ×3 (02:17→19:17)
[2022-03-14] MEDS: LEVOTHYROXINE SODIUM 125 MCG TABLET PO SCH (05:18)
[2022-03-14 06:14] LABS: Hematocrit (blood only) 23.6 % (34.1-44.9); Hemoglobin 7.7 g/dl (12.0-16.0); Mean Corpuscular Hemoglobin 30.2 pg (25.0-34.0); Mean Corpuscular Hgb Conc 32.6 g/dL (32.0-36.0); Mean Corpuscular Volume 92.5 fL (80.0-100.0); Mean Platelet Volume 9.4 fL (9.4-12.3); Platelet Count 267 K/uL (130-400); RDW Standard Deviation 54.3 fL (36.4-46.3); Red Blood Count 2.55 M/uL (3.93-5.22); White Blood Count 7.87 K/ul (4.8-10.8)
[2022-03-14 06:41] LABS: BUN Creatinine Ratio 30.4 (10-20); Calcium 7.6 mg/dl (8.5-10.1); Creatinine Clr Calc Pharmacy 38.8 ml/min; Est GFR (African American) 51.7 ml/min; Est GFR (Non-African American) 44.6 ml/min; Potassium 4.1 mmol/L (3.5-5.1)
[2022-03-14] MEDS: CHOLECALCIFEROL 5,000 UNITS 125 MCG TAB PO SCH (08:56)
[2022-03-14] MEDS: ENOXAPARIN INJ 40 MG/0.4 ML SYR SQ SCH (08:56)
[2022-03-14] MEDS: LANTUS PER UNIT CHARGE SQ SCH (08:56)
[2022-03-14] MEDS: INSULIN ASPART PER UNIT SC SCH ×4 (08:56→20:59)
[2022-03-14] MEDS: FUROSEMIDE 40 MG TAB PO SCH (08:56)
[2022-03-14] MEDS: PANTOprazole 40 MG TAB PO SCH ×2 (08:57→21:24)
[2022-03-14] MEDS: MAGNESIUM OXIDE 400 MG TAB PO SCH ×2 (08:57→20:52)
[2022-03-14] MEDS: PSYLLIUM or GUAR GUM FIBER POWDER PACKET PO SCH (08:57)
[2022-03-14] MEDS: ALBUTEROL 0.083% NEBU SOLN 3 ML VIAL NEB PRN (09:15)
[2022-03-14] MEDS: oxyCODONE HCL IR 5 MG TAB (IMMEDIATE RELEASE) PO PRN ×2 (11:34→23:42)
--- NOTE | 2022-03-14 12:49 | Hospitalist Progress Note ---
Date of Service March 14, 2022 Assessment & Plan (1) Rectal bleeding: Plan: -Rectal bleeding occurred postoperatively after resumption of Xarelto following hemorrhoid surgery. -No further bleeding episodes noted -However Hb trending down a little , 7.7 today -The jesus rectal area has improved following warm sitz bath -CT pelvis 03/09 shows Apparent stool-filled tract/fistula which extends from the anus to the medial left gluteal fold -Xarelto remains on hold. -although completed a 5 day course of Ceftriaxone, will continue IV Flagyl for now in view of the suspected stool fistula to cover for anerobics, end date 03/17 -Per gen surgery and wound care, continue sitz baths TID -Outpatient follow up with her [place] surgeons (2) Anemia due to acute blood loss: Plan: She has received at least 5 units of packed red blood cells this admission. Hemoglobin 7.7 today No overt active bleeding seen. Xarelto remains on hold. (3) SETH (acute kidney injury): Plan: now resolved (4) Vaginal discharge: Plan: from long standing vaginal pessary evaluated by OBGYN, took a swab growing justen will treat with a one time dose of 150mg Diflucan (5) Anasarca: Plan: Bilateral leg and abdominal wall edema could be multifactorial Last ECHO showed EF .70%, hyperdynamic Lasix 40mg daily Much improved (6) Type 1 diabetes: Plan: HbA1C 9.0 in October. Holding insulin pump and Dexcom. Appreciate pharmacy consult for glycemic control - planning on continuing basal bolus insulin at [facility] as she is lacking supplies for her pump at this time. (7) CAD (coronary artery disease), [place] coronary artery: Plan: Stable. Medical management (8) GERD (gastroesophageal reflux disease): Plan: PPI therapy (9) Diastolic CHF: Plan: Stable. Monitor intake and output. Medical management (10) Deep vein thrombosis (DVT) of right lower extremity: Plan: History of. Xarelto on hold due to rectal bleeding (11) Insulin pump status: Plan: Pump has been deactivated. She is on basal bolus insulin at this time (12) Hypothyroidism: Plan: Continue levothyroxine 125 mcg daily. Stable (13) Breast cancer: Plan: Stage IV invasive ductal carcinoma. Last chemotherapy (Enhertu) was 4 weeks ago per patient recollection. Unlikely contributing towards current anemia. (14) IPMN (intraductal papillary mucinous neoplasm): Plan: See above Plan VTE Prophylaxis - lovenox SQ Diet - T2DM, heart healthy Disposition - SNF at discharge, when accepted Admission and Anticipated Discharge Date Admission Date: February 26, 2022 Subjective patient seen and examined, feels much better Review of Systems Review of Systems: All systems reviewed are negative, apart from the ones contained in the history. Physical Exam Physical Exam: The patient is awake, alert and oriented 3, well developed and well nourished, normocephalic and atraumatic, lying in bed and in no acute distress. HEENT--PERRL, EOMI, mucous membranes and oropharynx mildly dry Neck--supple. No JVD. No bruits. Thyroid normal, trachea midline, no mayte opathy. Heart--normal S1 and S2. No murmurs, rubs or gallops. Lungs--clear bilaterally, no respiratory distress, no accessory muscle use. Abdomen--normal bowel sounds and soft. Mild epigastric and left sided abdominal pain, abdominal wall edema Perinium: jesus rectal redness, swelling, much improved Extremities--bilateral leg edema Dermatologic--normal skin turgor, normal color, no abnormal lymph nodes, no rash. Neurologic--cranial nerves II through XII grossly intact. Rheumatologic--normal range of motion. Psychiatric--normal affect. Results & Data Results & Data ([facility]) Vital Signs (Past 12 Hours) Vital Signs Temp Pulse Resp BP Pulse Ox O2 Del Method 03/14/22 09:16 90 18 91 Room Air 03/14/22 07:45 98.4 F 92 H 16 125/68 92 Room Air PG Care Time/CCT Total # of Minutes Spent Total Time Spent with Patient: Total time spent is greater than 50% in coordination of care (as documented) at patient's floor/unit and/or counseling patient: Coding Level of Care Code 93005 Subseq Hosp Care Lvl 2 Diagnoses Rectal bleeding K62.5 Anemia due to acute blood loss D62 SETH (acute kidney injury) N17.9 Vaginal discharge N89.8 Anasarca R60.1 Type 1 diabetes E10.9 CAD (coronary artery disease), [place] coronary artery I25.10 GERD (gastroesophageal reflux disease) K21.9 Diastolic CHF I50.30 Deep vein thrombosis (DVT) of right lower extremity I82.401 Insulin pump status Z96.41 Hypothyroidism E03.9 Breast cancer C50.919 IPMN (intraductal papillary mucinous neoplasm) D49.0 Time Spent (min) 35
[2022-03-14] MEDS: ACETAMINOPHEN 325 MG TAB PO PRN (19:17)
[2022-03-14] MEDS: METOPROLOL SUCC 25MG EXT REL TAB PO SCH (21:03)
[2022-03-15] MEDS: metroNIDAZOLE 500 MG/100 ML BAG IV SCH ×3 (02:10→18:12)
[2022-03-15] MEDS: HEPARIN 100 UNIT/ML 5ML FLUSH FLUSH PRN (03:15)
[2022-03-15] MEDS: LEVOTHYROXINE SODIUM 125 MCG TABLET PO SCH (05:32)
--- NOTE | 2022-03-15 07:05 | Hospitalist Progress Note ---
Date of Service March 15, 2022 Assessment & Plan (1) Rectal bleeding: Plan: -Rectal bleeding occurred postoperatively after resumption of Xarelto following hemorrhoid surgery. -Hgb trended down to 7.7 on 03/14 however up to 9.3 on 03/15 without intervention. -No further bleeding episodes noted. -Continue sitz baths three times daily. -CT pelvis 03/09 shows apparent stool-filled tract/fistula which extends from the anus to the medial left gluteal fold. General Surgery recommends follow up outpatient with surgeon, otherwise sitz baths. -Completed a 5 day course of Ceftriaxone, will continue IV Flagyl for now in view of the suspected stool fistula to cover for anaerobics, with end date 03/17. -Consider resuming Xarelto tomorrow. (2) Anemia due to acute blood loss: Plan: -She has received at least 5 units of packed red blood cells this admission, in the setting of rectal bleeding post-surgery. -Hgb trended down yesterday to 7.7 however up to 9.3 today 03/15 without intervention, no continued bleeding seen. -Daily CBC. -Continue to hold Xarelto today until discussion of risk/benefit with patient and family. (3) SETH (acute kidney injury): Plan: -Now resolved. -Repeat BMP in the morning. (4) Vaginal discharge: Plan: -Suspected from long standing vaginal pessary. -evaluated by OBGYN, swab showed Mira. -Completed one time dose of 150mg Diflucan. (5) Anasarca: Plan: -Bilateral leg and abdominal wall edema. -Resolved with Lasix 40mg PO daily. -Last ECHO showed EF 70%, hyperdynamic. (6) Type 1 diabetes: Plan: -HbA1C 9.0 in October. Holding insulin pump and Dexcom. -Planning on continuing basal bolus insulin at [facility] as she is lacking supplies for her pump at this time. Glycemic management consult appreciated. (7) CAD (coronary artery disease), [place] coronary artery: Plan: -Stable. Medical management (8) GERD (gastroesophageal reflux disease): Plan: -PPI BID. (9) Diastolic CHF: Plan: - Stable. Monitor intake and output. - Continue Lasix 40mg PO daily for now, follow BMP. (10) Deep vein thrombosis (DVT) of right lower extremity: Plan: History of. Xarelto on hold due to rectal bleeding (11) Insulin pump status: Plan: - Pump has been deactivated. She is on basal bolus insulin at this time (12) Hypothyroidism: Plan: -Continue levothyroxine 125 mcg daily. (13) Breast cancer: Plan: -Stage IV invasive ductal carcinoma. Last chemotherapy (Enhertu) was 4 weeks ago per patient recollection. (14) IPMN (intraductal papillary mucinous neoplasm): Plan: See above Plan VTE Prophylaxis - Lovenox SQ Diet - T2DM, heart healthy FULL CODE Med/Surg Disposition - SNF at discharge, when accepted Admission and Anticipated Discharge Date Admission Date: February 26, 2022 Subjective Patient without any acute events overnight. No complaints of abdominal or buttock pain, no reports of rectal bleeding and no reports of blood in stools per nursing staff. No fevers overnight. No complaints of chest pain or trouble breathing. Review of Systems Review of Systems: All systems reviewed are negative, apart from the ones contained in subjective Physical Exam Constitutional: WD/WN, vitals as above Respiratory: normal respiratory effort, lungs clear to auscultation Cardiovascular: RRR, no murmur, no edema Gastrointestinal (Abdomen): normal bowel sounds, soft, nontender, no hepatosplenomegaly Skin: no rashes, warm and dry Psychiatric: A+Ox3, euthymic affect Results & Data Results & Data ([facility]) Vital Signs (Past 12 Hours) Vital Signs Temp Pulse Resp BP Pulse Ox O2 Del Method 03/14/22 19:15 Room Air 03/14/22 22:37 117/62 03/14/22 21:13 104/58 L 93 Room Air 03/14/22 20:50 37.0 C 87 16 100/57 L 92 Room Air PG Care Time/CCT Total # of Minutes Spent Total Time Spent with Patient: Total time spent is greater than 50% in coordination of care (as documented) at patient's floor/unit and/or counseling patient: Coding Level of Care Code 63094 Subseq Hosp Care Lvl 3 Diagnoses Rectal bleeding K62.5 Anemia due to acute blood loss D62 SETH (acute kidney injury) N17.9 Vaginal discharge N89.8 Anasarca R60.1 Type 1 diabetes E10.9 CAD (coronary artery disease), [place] coronary artery I25.10 GERD (gastroesophageal reflux disease) K21.9 Diastolic CHF I50.30 Deep vein thrombosis (DVT) of right lower extremity I82.401 Insulin pump status Z96.41 Hypothyroidism E03.9 Breast cancer C50.919 IPMN (intraductal papillary mucinous neoplasm) D49.0
[2022-03-15] MEDS: PANTOprazole 40 MG TAB PO SCH ×2 (09:40→20:39)
[2022-03-15] MEDS: CHOLECALCIFEROL 5,000 UNITS 125 MCG TAB PO SCH (09:40)
[2022-03-15] MEDS: ENOXAPARIN INJ 40 MG/0.4 ML SYR SQ SCH (09:40)
[2022-03-15] MEDS: FUROSEMIDE 40 MG TAB PO SCH (09:40)
[2022-03-15] MEDS: MAGNESIUM OXIDE 400 MG TAB PO SCH ×2 (09:40→20:39)
[2022-03-15] MEDS: PSYLLIUM or GUAR GUM FIBER POWDER PACKET PO SCH (09:41)
[2022-03-15] MEDS: INSULIN ASPART PER UNIT SC SCH ×4 (09:41→21:23)
[2022-03-15] MEDS: LANTUS PER UNIT CHARGE SQ SCH (09:42)
[2022-03-15 10:17] LABS: Hematocrit (blood only) 27.8 % (34.1-44.9); Hemoglobin 9.3 g/dl (12.0-16.0); Mean Corpuscular Hemoglobin 30.6 pg (25.0-34.0); Mean Corpuscular Hgb Conc 33.5 g/dL (32.0-36.0); Mean Corpuscular Volume 91.4 fL (80.0-100.0); Mean Platelet Volume 9.5 fL (9.4-12.3); Platelet Count 310 K/uL (130-400); RDW Coefficient of Variation 16.3 % (11.5-14.5); RDW Standard Deviation 53.9 fL (36.4-46.3); Red Blood Count 3.04 M/uL (3.93-5.22); White Blood Count 8.97 K/ul (4.8-10.8)
[2022-03-15] MEDS: oxyCODONE HCL IR 5 MG TAB (IMMEDIATE RELEASE) PO PRN (13:08)
[2022-03-15] MEDS: METOPROLOL SUCC 25MG EXT REL TAB PO SCH (20:38)
[2022-03-16] MEDS: metroNIDAZOLE 500 MG/100 ML BAG IV SCH ×3 (02:52→18:04)
[2022-03-16] MEDS: LEVOTHYROXINE SODIUM 125 MCG TABLET PO SCH (06:31)
[2022-03-16] MEDS: FUROSEMIDE 40 MG TAB PO SCH (08:03)
[2022-03-16] MEDS: MAGNESIUM OXIDE 400 MG TAB PO SCH ×2 (08:03→20:13)
[2022-03-16] MEDS: PANTOprazole 40 MG TAB PO SCH ×2 (08:03→20:13)
[2022-03-16] MEDS: CHOLECALCIFEROL 5,000 UNITS 125 MCG TAB PO SCH (08:03)
[2022-03-16] MEDS: ENOXAPARIN INJ 40 MG/0.4 ML SYR SQ SCH (08:04)
[2022-03-16] MEDS: PSYLLIUM or GUAR GUM FIBER POWDER PACKET PO SCH (08:04)
[2022-03-16] MEDS: ACETAMINOPHEN 325 MG TAB PO PRN (08:10)
--- NOTE | 2022-03-16 08:39 | Hospitalist Progress Note ---
Date of Service March 16, 2022 Assessment & Plan (1) Rectal bleeding: Plan: -Rectal bleeding occurred postoperatively after resumption of Xarelto following hemorrhoid surgery. -Hgb trended down to 7.7 on 03/14, 8.8 today and has not needed transfusion since early this admission. -No further bleeding episodes noted. -CT pelvis 03/09 shows apparent stool-filled tract/fistula which extends from the anus to the medial left gluteal fold. General Surgery recommends follow up outpatient with surgeon, otherwise sitz baths 3 times daily. -Completed a 5 day course of Ceftriaxone, will continue IV Flagyl for now in view of the suspected stool fistula to cover for anaerobics, with end date 03/17. -Hold Xarelto. (2) Anemia due to acute blood loss: Plan: -She has received at least 5 units of packed red blood cells this admission, in the setting of rectal bleeding post-surgery. -Hgb trended down yesterday to 7.7 however up to 9.3 today 03/15 without intervention, no continued bleeding seen. -Daily CBC. -Hold Xarelto. (3) SETH (acute kidney injury): Plan: -Now resolved. -Repeat BMP in the morning. (4) Vaginal discharge: Plan: -Suspected from long standing vaginal pessary. -evaluated by OBGYN, swab showed Miar. -Completed one time dose of 150mg Diflucan. (5) Anasarca: Plan: -Bilateral leg and abdominal wall edema. -Resolved with Lasix 40mg PO daily. -Last ECHO showed EF 70%, hyperdynamic. (6) Type 1 diabetes: Plan: -HbA1C 9.0 in October. Holding insulin pump and Dexcom. -Planning on continuing basal bolus insulin at [facility] as she is lacking supplies for her pump at this time. Glycemic management consult appreciated. (7) CAD (coronary artery disease), [place] coronary artery: Plan: -Stable. Medical management (8) GERD (gastroesophageal reflux disease): Plan: -PPI BID. (9) Diastolic CHF: Plan: - Stable. Monitor intake and output. - Continue Lasix 40mg PO daily for now, follow BMP. (10) Deep vein thrombosis (DVT) of right lower extremity: Plan: History of. Xarelto on hold due to rectal bleeding, on Lovenox 40 mg daily here for DVT prophylaxis. (11) Insulin pump status: Plan: - Pump has been deactivated. She is on basal bolus insulin at this time. (12) Hypothyroidism: Plan: -Continue levothyroxine 125 mcg daily. (13) Breast cancer: Plan: -Stage IV invasive ductal carcinoma. Last chemotherapy (Enhertu) was 4 weeks ago per patient recollection. (14) IPMN (intraductal papillary mucinous neoplasm): Plan: See above Plan VTE Prophylaxis - Lovenox SQ Diet - T2DM, heart healthy FULL CODE Med/Surg Disposition - SNF at discharge, when accepted Admission and Anticipated Discharge Date Admission Date: February 26, 2022 Subjective No acute events overnight. She has no complaints today save for some discomfort on her bottom in the area of her fistula, denies any rectal bleeding as does her nursing staff. Vital signs abnormalities, no fevers. Saturating well on room air. Review of Systems Review of Systems: All systems reviewed are negative, apart from the ones contained in subjective Physical Exam Constitutional: WD/WN, vitals as above Respiratory: normal respiratory effort, lungs clear to auscultation Cardiovascular: RRR, no murmur, no edema Gastrointestinal (Abdomen): normal bowel sounds, soft, nontender, no hepatosplenomegaly Skin: no rashes, warm and dry Psychiatric: A+Ox3, euthymic affect Results & Data Results & Data ([facility]) Vital Signs (Past 12 Hours) Vital Signs Temp Pulse Pulse Resp BP Pulse Ox O2 Del Method 03/16/22 07:51 36.6 C 71 18 107/53 L 92 Room Air 03/16/22 07:29 36.4 C L 67 16 90/50 L 91 Room Air 03/16/22 00:24 Room Air 03/15/22 22:01 36.9 C 78 17 112/62 92 Room Air PG Care Time/CCT Total # of Minutes Spent Total Time Spent with Patient: Total time spent is greater than 50% in coordination of care (as documented) at patient's floor/unit and/or counseling patient: Coding Level of Care Code 19651 Subseq Hosp Care Lvl 3 Diagnoses Rectal bleeding K62.5 Anemia due to acute blood loss D62 SETH (acute kidney injury) N17.9 Vaginal discharge N89.8 Anasarca R60.1 Type 1 diabetes E10.9 CAD (coronary artery disease), [place] coronary artery I25.10 GERD (gastroesophageal reflux disease) K21.9 Diastolic CHF I50.30 Deep vein thrombosis (DVT) of right lower extremity I82.401 Insulin pump status Z96.41 Hypothyroidism E03.9 Breast cancer C50.919 IPMN (intraductal papillary mucinous neoplasm) D49.0
[2022-03-16] MEDS: INSULIN ASPART PER UNIT SC SCH ×4 (09:07→21:06)
[2022-03-16] MEDS: LANTUS PER UNIT CHARGE SQ SCH (09:09)
--- NOTE | 2022-03-16 10:38 | Pharmacy Report ---
Pharmacy Glycemic Short Note 2 - Date of Service March 16, 2022 - Glycemic Short BSG Results (Last 24 hours): 03/15/22 03/15/22 03/15/22 11:53 16:54 20:37 POC Glucose 259 H 177 H 138 H 03/16/22 03/16/22 03/16/22 07:51 07:53 08:18 POC Glucose 63 L* 62 L* 78 OUTPATIENT ANTIDIABETIC REGIMEN: * Novolog insulin pump * Basal rates: * 1380-8943 = 0.45 units/hr * 5165-2401 = 0.55 units/hr * 6380-1347 = 0.50 units/hr * Total daily basal dose = 12 units/day * Carb Ratio: 15 * Sensitivity Factor: 55 * Goal range: 140-150 mg/dL * HbA1c = 8.7% (02/26/22) ASSESSMENT: 03/16: * BSGs 662-526-151-138-78mg/dL the last 24h. Fasting BSG low this AM, 78mg/dL. Patient received 9 units of basal and 13 units of bolus insulin yesterday. * Tolerating diet, continues on flagyl. * Given low fasting BSG this AM, Lantus decreased to 5 units. Goal BSG range increased to 120-160mg/dL. Breakfast Novolog parameters loosened by provider. 03/12: * Colleen received a total of 26 units of insulin yesterday, 10 units basal + 16 units bolus. * Fasting BSG was 94 mg/dL this AM. Will reduce basal insulin by 10%. * No changes in Novolog. 03/10: * Patient's BSGs yesterday were 513-373-440-127 mg/dL. BSGs today have been 151- 143 mg/dL. * Patient received 28 units of insulin yesterday with 10 units of basal and 18 units of bolus. * Basal increased yesterday so continue. * BSGs relatively stable yesterday so continue Novolog parameters 03/09: * Colleen received 27 units of insulin yesterday, 9 units basal + 18 units bolus. BSGs were acceptable: 308-513-576-118 mg/dL. * Fasting BSG elevated at 241 mg/dL this AM. Spoke with patient who stated she had 2 packs of lizzeth crackers prior to AM accucheck. Given fastings have consistently been above goal for the last 72 hours, will increase basal slightly today. No change to Novolog. PLAN FOR INPATIENT GLYCEMIC CONTROL: * Basal insulin * Lantus 5 units SC AM * Bolus insulin * NovoLog per scale ACHS or Q6hrs while NPO * Goal Range: Low 120 mg/dL - High 160 mg/dL * Correction Factor: 35 mg/dL/unit with breakfast, 45 mg/dL/unit with lunch, dinner, HS * Nutritional / Prandial insulin per carb ratio of 1 unit per 12 grams CHO consumed with breakfast 12 grams CHO consumed with lunch, dinner, HS
[2022-03-16 10:45] LABS: Hematocrit (blood only) 27.4 % (34.1-44.9); Hemoglobin 8.8 g/dl (12.0-16.0); Mean Corpuscular Hemoglobin 30.2 pg (25.0-34.0); Mean Corpuscular Hgb Conc 32.1 g/dL (32.0-36.0); Mean Corpuscular Volume 94.2 fL (80.0-100.0); Mean Platelet Volume 9.2 fL (9.4-12.3); Platelet Count 331 K/uL (130-400); RDW Coefficient of Variation 16.6 % (11.5-14.5); RDW Standard Deviation 57.3 fL (36.4-46.3); Red Blood Count 2.91 M/uL (3.93-5.22)
[2022-03-16 11:19] LABS: BUN Creatinine Ratio 27.6 (10-20); Creatinine Clr Calc Pharmacy 35.2 ml/min; Est GFR (African American) 45.8 ml/min; Est GFR (Non-African American) 39.5 ml/min; Potassium 4.4 mmol/L (3.5-5.1)
[2022-03-16] MEDS: HEPARIN 100 UNIT/ML 5ML FLUSH FLUSH PRN ×2 (11:29→19:18)
[2022-03-16] MEDS: oxyCODONE HCL IR 5 MG TAB (IMMEDIATE RELEASE) PO PRN (12:53)
[2022-03-16] MEDS: METOPROLOL SUCC 25MG EXT REL TAB PO SCH (20:14)
[2022-03-17] MEDS: metroNIDAZOLE 500 MG/100 ML BAG IV SCH (01:21)
[2022-03-17] MEDS: LEVOTHYROXINE SODIUM 125 MCG TABLET PO SCH (06:02)
[2022-03-17] MEDS: MAGNESIUM OXIDE 400 MG TAB PO SCH ×2 (09:23→20:45)
[2022-03-17] MEDS: CHOLECALCIFEROL 5,000 UNITS 125 MCG TAB PO SCH (09:23)
[2022-03-17] MEDS: PSYLLIUM or GUAR GUM FIBER POWDER PACKET PO SCH (09:24)
[2022-03-17] MEDS: ENOXAPARIN INJ 40 MG/0.4 ML SYR SQ SCH (09:24)
[2022-03-17] MEDS: PANTOprazole 40 MG TAB PO SCH ×2 (09:24→20:45)
--- NOTE | 2022-03-17 09:24 | Hospitalist Progress Note ---
Date of Service March 17, 2022 Assessment & Plan (1) Rectal bleeding: Plan: -Rectal bleeding occurred postoperatively after resumption of Xarelto following hemorrhoid surgery. -Hgb trended down to 7.7 on 03/14, stable at 8.8 for the last several days and has not needed transfusion since early this admission. -No further bleeding episodes noted. -CT pelvis 03/09 shows apparent stool-filled tract/fistula which extends from the anus to the medial left gluteal fold. General Surgery recommends follow up outpatient with surgeon, otherwise sitz baths 3 times daily. -Completed a 5 day course of Ceftriaxone, will continue IV Flagyl for now in view of the suspected stool fistula to cover for anaerobics, with end date 03/17. -Conversation had with patient and her daughter Cata about Xarelto risks/benefits. Risks include further bleeding given she did have bleeding with resuming Xarelto requiring a total of 5 units of blood this admission. Benefits include DVT/PE risk prevention, especially given her hypercoagulable state from cancer diagnosis. After discussing decision was made to hold off on Xarelto at this time in favor of further discussion with PCP after discharge. (2) Anemia due to acute blood loss: Plan: -She has received at least 5 units of packed red blood cells this admission, in the setting of rectal bleeding post-surgery. -Hgb trended down to 7.7 on 03/14, however has been stable for the last several days at 8.8. -Trend CBC during admission. -Hold Xarelto as above. (3) SETH (acute kidney injury): Plan: -Now resolved. (4) Vaginal discharge: Plan: -Suspected from long standing vaginal pessary. -evaluated by OBGYN, swab showed Mira. -Completed one time dose of 150mg Diflucan. (5) Anasarca: Plan: -Bilateral leg and abdominal wall edema. -Improving with Lasix 40mg PO daily. -Last ECHO showed EF 70%, hyperdynamic. (6) Type 1 diabetes: Plan: -HbA1C 9.0 in October. Holding insulin pump and Dexcom. -Planning on continuing basal bolus insulin at [facility] as she is lacking supplies for her pump at this time. Glycemic management consult appreciated. (7) CAD (coronary artery disease), [place] coronary artery: Plan: -Stable. Medical management (8) GERD (gastroesophageal reflux disease): Plan: -PPI BID. (9) Diastolic CHF: Plan: - Stable. Monitor intake and output. - Continue Lasix 40mg PO daily. (10) Deep vein thrombosis (DVT) of right lower extremity: Plan: History of. Xarelto on hold due to rectal bleeding, on Lovenox 40 mg daily here for DVT prophylaxis. (11) Insulin pump status: Plan: - Pump has been deactivated. She is on basal bolus insulin at this time. (12) Hypothyroidism: Plan: -Continue levothyroxine 125 mcg daily. (13) Breast cancer: Plan: -Stage IV invasive ductal carcinoma. Last chemotherapy (Enhertu) was 5 weeks ago. (14) IPMN (intraductal papillary mucinous neoplasm): Plan: See above Plan VTE Prophylaxis - Lovenox SQ Diet - T2DM, heart healthy FULL CODE Med/Surg Disposition - SNF at discharge, when accepted Admission and Anticipated Discharge Date Admission Date: February 26, 2022 Subjective No acute events overnight. Normal still complains of some pain in her bottom area which is alleviated with as needed pain medications and positioning by nursing staff. She is awaiting placement at this time. She denies any dizziness, shortness of breath, chest pain, abdominal pain. Review of Systems Review of Systems: All systems reviewed are negative, apart from the ones contained in subjective Physical Exam Constitutional: WD/WN, vitals as above Respiratory: normal respiratory effort, lungs clear to auscultation Cardiovascular: RRR, no murmur, no edema Gastrointestinal (Abdomen): normal bowel sounds, soft, nontender, no hepatosplenomegaly Skin: no rashes, warm and dry Psychiatric: A+Ox3, euthymic affect Results & Data Results & Data ([facility]) Vital Signs (Past 12 Hours) Vital Signs Temp Pulse Resp BP Pulse Ox O2 Del Method 03/17/22 08:09 36.7 C 68 16 97/58 L 93 Room Air PG Care Time/CCT Total # of Minutes Spent Total Time Spent with Patient: Total time spent is greater than 50% in coordination of care (as documented) at patient's floor/unit and/or counseling patient: Coding Level of Care Code 71646 Subseq Hosp Care Lvl 2 Diagnoses Rectal bleeding K62.5 Anemia due to acute blood loss D62 SETH (acute kidney injury) N17.9 Vaginal discharge N89.8 Anasarca R60.1 Type 1 diabetes E10.9 CAD (coronary artery disease), [place] coronary artery I25.10 GERD (gastroesophageal reflux disease) K21.9 Diastolic CHF I50.30 Deep vein thrombosis (DVT) of right lower extremity I82.401 Insulin pump status Z96.41 Hypothyroidism E03.9 Breast cancer C50.919 IPMN (intraductal papillary mucinous neoplasm) D49.0
[2022-03-17] MEDS: FUROSEMIDE 40 MG TAB PO SCH (09:25)
[2022-03-17] MEDS: ACETAMINOPHEN 325 MG TAB PO PRN ×2 (09:26→13:48)
[2022-03-17] MEDS: INSULIN ASPART PER UNIT SC SCH ×4 (09:27→21:14)
[2022-03-17] MEDS: LANTUS PER UNIT CHARGE SQ SCH (09:28)
[2022-03-17 09:35] LABS: Hematocrit (blood only) 26.6 % (34.1-44.9); Hemoglobin 8.8 g/dl (12.0-16.0); Mean Corpuscular Hemoglobin 30.4 pg (25.0-34.0); Mean Corpuscular Hgb Conc 33.1 g/dL (32.0-36.0); Mean Platelet Volume 9.4 fL (9.4-12.3); Platelet Count 321 K/uL (130-400); RDW Coefficient of Variation 16.5 % (11.5-14.5); RDW Standard Deviation 55.7 fL (36.4-46.3); Red Blood Count 2.89 M/uL (3.93-5.22); White Blood Count 6.61 K/ul (4.8-10.8)
[2022-03-17 10:01] LABS: BUN Creatinine Ratio 30.3 (10-20); Calcium 8.1 mg/dl (8.5-10.1); Creatinine Clr Calc Pharmacy 37.5 ml/min; Est GFR (African American) 49.6 ml/min; Est GFR (Non-African American) 42.8 ml/min; Potassium 4.4 mmol/L (3.5-5.1)
[2022-03-17] MEDS: oxyCODONE HCL IR 5 MG TAB (IMMEDIATE RELEASE) PO PRN (11:43)
[2022-03-17] MEDS: METOPROLOL SUCC 25MG EXT REL TAB PO SCH (20:45)
[2022-03-18] MEDS: LEVOTHYROXINE SODIUM 125 MCG TABLET PO SCH (06:07)
[2022-03-18] MEDS: ALBUTEROL 0.083% NEBU SOLN 3 ML VIAL NEB PRN (08:23)
--- NOTE | 2022-03-18 09:00 | Hospitalist Progress Note ---
Date of Service March 18, 2022 Assessment & Plan (1) Abdominal pain: Plan: -Today complaints of abdominal pain and nausea. -Does have significant abdominal wall edema on exam, no acute abdomen. -CTAP shows perianal fistula with slight improvement from last imaging, no drainable abscess. Increase in bilateral pleural effusions and small ascites, diffuse body wall edema. -Increase Lasix perhaps some pain due to this in abdomen. -Zofran as needed for nausea, prn pain medications. (2) Rectal bleeding: Plan: -Rectal bleeding occurred postoperatively after resumption of Xarelto following hemorrhoid surgery. -Hgb trended down to 7.7 on 03/14, stable at 8.8 for the last several days and has not needed transfusion since early this admission. -No further bleeding episodes noted. -CT pelvis 03/09 shows apparent stool-filled tract/fistula which extends from the anus to the medial left gluteal fold. General Surgery recommends follow up outpatient with surgeon, otherwise sitz baths 3 times daily. -Completed a 5 day course of Ceftriaxone, will continue IV Flagyl for now in view of the suspected stool fistula to cover for anaerobics, with end date 03/17. -Conversation had with patient and her daughter Cata about Xarelto risks/benefits. Risks include further bleeding given she did have bleeding with resuming Xarelto requiring a total of 5 units of blood this admission. Benefits include DVT/PE risk prevention, especially given her hypercoagulable state from cancer diagnosis. After discussing decision was made to hold off on Xarelto at this time in favor of further discussion with PCP after discharge. (3) Anemia due to acute blood loss: Plan: -She has received at least 5 units of packed red blood cells this admission, in the setting of rectal bleeding post-surgery. -Hgb trended down to 7.7 on 03/14, however has been stable for the last several days at 8.8. -Trend CBC during admission. -Hold Xarelto as above. (4) SETH (acute kidney injury): Plan: -Now resolved. (5) Vaginal discharge: Plan: -Suspected from long standing vaginal pessary. -evaluated by OBGYN, swab showed Mira. -Completed one time dose of 150mg Diflucan. (6) Anasarca: Plan: -Bilateral leg and abdominal wall edema. -Feel that her edema is worsening despite PO Lasix, will transition to IV Lasix. -Last ECHO showed EF 70%, hyperdynamic. -Low salt diet. (7) Type 1 diabetes: Plan: -HbA1C 9.0 in October. Holding insulin pump and Dexcom. -Planning on continuing basal bolus insulin at SNF as she is lacking supplies for her pump at this time. Glycemic management consult appreciated. (8) CAD (coronary artery disease), [place] coronary artery: Plan: -Stable. Medical management (9) GERD (gastroesophageal reflux disease): Plan: -PPI BID. (10) Diastolic CHF: Plan: - Stable. Monitor intake and output. - Continue Lasix above. (11) Deep vein thrombosis (DVT) of right lower extremity: Plan: History of. Xarelto on hold due to rectal bleeding and after risk/benefit discussion with patient and family, on Lovenox 40 mg daily here for DVT prophylaxis. (12) Insulin pump status: Plan: - Pump has been deactivated. She is on basal bolus insulin at this time. (13) Hypothyroidism: Plan: -Continue levothyroxine 125 mcg daily. (14) Breast cancer: Plan: -Stage IV invasive ductal carcinoma. Last chemotherapy (Enhertu) was 5 weeks ago. 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 -Continue wound care, sitz baths. -Wound care follow up on discharge. Plan VTE Prophylaxis - Lovenox SQ Diet - T2DM, heart healthy FULL CODE Med/Surg Disposition - ultimately to SNF on discharge Admission and Anticipated Discharge Date Admission Date: February 26, 2022 Subjective Overnight: No acute events. Refused repositioning for pressure offloading overnight. Did complain today of abdominal pain, some nausea. Discussed importance of turning for pressure offloading for fistula. Normal vital signs, saturating well on room air. Review of Systems Review of Systems: All systems reviewed are negative, apart from the ones contained in subjective Physical Exam Constitutional: WD/WN, vitals as above Respiratory: normal respiratory effort, lungs clear to auscultation Cardiovascular: RRR no murmurs anasarca, pitting edema to body wall, lower extremities, 2+ Gastrointestinal (Abdomen): normal bowel sounds, soft, nontender, no hepatosplenomegaly Skin: no rashes, warm and dry Psychiatric: A+Ox3, euthymic affect Results & Data Results & Data ([facility]) Vital Signs (Past 12 Hours) Vital Signs Temp Pulse Resp BP Pulse Ox O2 Del Method 03/18/22 08:24 83 16 92 Room Air 03/18/22 08:09 36.8 C 85 16 117/69 90 Room Air 03/17/22 23:39 36.3 C L 76 18 119/65 92 Room Air PG Care Time/CCT Total # of Minutes Spent Total Time Spent with Patient: Total time spent is greater than 50% in coordination of care (as documented) at patient's floor/unit and/or counseling patient: Coding Level of Care Code 71230 Subseq Hosp Care Lvl 3 Diagnoses Abdominal pain R10.9 Rectal bleeding K62.5 Anemia due to acute blood loss D62 SETH (acute kidney injury) N17.9 Vaginal discharge N89.8 Anasarca R60.1 Type 1 diabetes E10.9 CAD (coronary artery disease), [place] coronary artery I25.10 GERD (gastroesophageal reflux disease) K21.9 Diastolic CHF I50.30 Deep vein thrombosis (DVT) of right lower extremity I82.401 Insulin pump status Z96.41 Hypothyroidism E03.9 Breast cancer C50.919 IPMN (intraductal papillary mucinous neoplasm) D49.0 Anal fistula K60.3
[2022-03-18] MEDS: CHOLECALCIFEROL 5,000 UNITS 125 MCG TAB PO SCH (09:46)
[2022-03-18] MEDS: ACETAMINOPHEN 325 MG TAB PO PRN ×3 (09:46→22:59)
[2022-03-18] MEDS: PSYLLIUM or GUAR GUM FIBER POWDER PACKET PO SCH (09:46)
[2022-03-18] MEDS: FUROSEMIDE 40 MG TAB PO SCH (09:47)
[2022-03-18] MEDS: MAGNESIUM OXIDE 400 MG TAB PO SCH ×2 (09:47→20:47)
[2022-03-18] MEDS: LANTUS PER UNIT CHARGE SQ SCH (09:47)
[2022-03-18] MEDS: ENOXAPARIN INJ 40 MG/0.4 ML SYR SQ SCH (09:47)
[2022-03-18] MEDS: PANTOprazole 40 MG TAB PO SCH ×2 (09:47→20:47)
[2022-03-18] MEDS: INSULIN ASPART PER UNIT SC SCH ×4 (09:48→20:52)
--- NOTE | 2022-03-18 09:57 | Pharmacy Report ---
Pharmacy Glycemic Short Note 2 - Date of Service March 18, 2022 - Glycemic Short BSG Results (Last 24 hours): 03/17/22 03/17/22 03/17/22 08:49 12:10 16:53 Glucose 110 H POC Glucose 200 H 182 H 03/17/22 03/18/22 20:38 08:23 Glucose POC Glucose 162 H 227 H OUTPATIENT ANTIDIABETIC REGIMEN: * Novolog insulin pump * Basal rates: * 7165-7946 = 0.45 units/hr * 7418-3429 = 0.55 units/hr * 8296-9561 = 0.50 units/hr * Total daily basal dose = 12 units/day * Carb Ratio: 15 * Sensitivity Factor: 55 * Goal range: 140-150 mg/dL * HbA1c = 8.7% (02/26/22) ASSESSMENT: 03/18: * Fasting BSG above goal at 227mg/dl, fasting at goal previous 2 days, so no change in basal at this time unless trend continues. * Otherwise acceptable control for type 1 - 81 year old, continue regimen below. * BSG 200gm/dl pre-lunch yesterday, consider tightening CR at breakfast if lunch BSG above goal again today. 03/16: * BSGs 138-996-334-138-78mg/dL the last 24h. Fasting BSG low this AM, 78mg/dL. Patient received 9 units of basal and 13 units of bolus insulin yesterday. * Tolerating diet, continues on flagyl. * Given low fasting BSG this AM, Lantus decreased to 5 units. Goal BSG range increased to 120-160mg/dL. Breakfast Novolog parameters loosened by provider. 03/12: * Colleen received a total of 26 units of insulin yesterday, 10 units basal + 16 units bolus. * Fasting BSG was 94 mg/dL this AM. Will reduce basal insulin by 10%. * No changes in Novolog. 03/10: * Patient's BSGs yesterday were [phone] mg/dL. BSGs today have been 151- 143 mg/dL. * Patient received 28 units of insulin yesterday with 10 units of basal and 18 units of bolus. * Basal increased yesterday so continue. * BSGs relatively stable yesterday so continue Novolog parameters 03/09: * Colleen received 27 units of insulin yesterday, 9 units basal + 18 units bolus. BSGs were acceptable: [phone] mg/dL. * Fasting BSG elevated at 241 mg/dL this AM. Spoke with patient who stated she had 2 packs of lizzeth crackers prior to AM accucheck. Given fastings have consistently been above goal for the last 72 hours, will increase basal slightly today. No change to Novolog. PLAN FOR INPATIENT GLYCEMIC CONTROL: * Basal insulin * Lantus 5 units SC AM * Bolus insulin * NovoLog per scale ACHS or Q6hrs while NPO * Goal Range: Low 120 mg/dL - High 160 mg/dL * Correction Factor: 35 mg/dL/unit with breakfast, 45 mg/dL/unit with lunch, dinner, HS * Nutritional / Prandial insulin per carb ratio of 1 unit per 12 grams CHO consumed with breakfast 12 grams CHO consumed with lunch, dinner, HS
[2022-03-18] MEDS ORDERED: OPTIRAY 350 100ml IV ONE (12:38)
[2022-03-18 14:44] LABS: Basophils # (auto) 0.03 K/uL (0-0.2); Basophils % (auto) 0.4 %; Eosinophils # (auto) 0.05 K/uL (0-0.50); Eosinophils % (auto) 0.7 %; Hematocrit (blood only) 27.7 % (34.1-44.9); Immature Granulocytes # (auto) 0.02 K/uL (0.00-0.02); Immature Granulocytes % (auto) 0.3 %; Lymphocytes # (auto) 2.41 K/uL (1.2-3.4); Lymphocytes % (auto) 33.2 %; Mean Corpuscular Hemoglobin 30.2 pg (25.0-34.0); Mean Corpuscular Hgb Conc 32.5 g/dL (32.0-36.0); Mean Platelet Volume 9.1 fL (9.4-12.3); Monocytes # (auto) 0.69 K/uL (0.24-0.82); Monocytes % (auto) 9.5 %; Neutrophils # (auto) 4.05 K/uL (1.4-6.5); Neutrophils % (auto) 55.9 %; Platelet Count 363 K/uL (130-400); RDW Coefficient of Variation 16.3 % (11.5-14.5); RDW Standard Deviation 55.8 fL (36.4-46.3); Red Blood Count 2.98 M/uL (3.93-5.22); White Blood Count 7.25 K/ul (4.8-10.8)
[2022-03-18 15:09] LABS: BUN Creatinine Ratio 29.8 (10-20); Creatinine Clr Calc Pharmacy 34.5 ml/min; Est GFR (African American) 44.1 ml/min; Est GFR (Non-African American) 38.1 ml/min; Potassium 4.7 mmol/L (3.5-5.1)
--- NOTE | 2022-03-18 17:02 | CT Scan Report ---
ABDOMEN AND PELVIS CT WITH IV CONTRAST CT DOSE: 1147.27 mGycm HISTORY: worsening abdominal pain TECHNIQUE: Multiaxial CT images of the abdomen and pelvis were performed following the use of intrave nous contrast. A dose lowering technique was utilized adhering to the principles of ALARA. COMPARISON STUDY: Pelvis CT 03/09/2022. Abdomen and pelvis CT 02/26/2022. FINDINGS: There is again noted a large hiatus hernia. Small right and moderate left pleural effusions have progressed. There is complete compressive atelectasis of the left lower lobe with partial compr essive atelectasis of the lingula and right lower lobe. There is a 4 mm nodule within the right upper lobe on image 8. There is a 3 mm nodule within the right middle lobe on image 40. Stable 4 mm nodule within the lingula. No pneumoperitoneum. No pneumatosis. Postoperative changes again noted within th e left hip transfixing an old left femoral neck fracture. There are old left rib fractures. There is an old moderate anterior wedge-shaped compression deformity at T8. Severe body wall edema again noted . A left perianal/gluteal fistula tract is again noted. This appears to have slightly decreased in si ze. No definite abscess identified. The bladder is decompressed by a Muñoz catheter. The uterus is un remarkable. Small to moderate amount of ascites is again noted. There is diffuse gastric wall edema/t hickening, unchanged. Cholecystectomy. No hepatic or splenic masses. Calcified splenic artery aneurys ms remain stable. Atrophic pancreas. The adrenal glands are unremarkable. The kidneys enhance normall y. No hydronephrosis. No retroperitoneal lymphadenopathy or hematoma. Normal caliber abdominal aorta. The main portal vein is patent. No evidence for bowel obstruction. Questionable thickening of the sm all bowel loops may be due to the patient's diffuse edematous state. Moderate fecal retention again n oted. Mild rectal wall thickening has improved. IMPRESSION: 1. There is again noted a left perianal/gluteal fistula tract which appears to have slightly improved in the interval. No drainable abscess identified at this time. 2. Increase in size in the bilateral pleural effusions and small to moderate amount of ascites. The d iffuse body wall edema persists. 3. Questionable thickening of the multiple small bowel loops and gastric wall thickening is likely du e to the patient's diffuse edematous state. This is similar to the prior study. 4. Additional findings as described above. ACT 112: Negative or not required by law. Electronically signed by: Chung Briscoe M.D. 03/18/2022 5:01 PM
[2022-03-18] MEDS ORDERED: FUROSEMIDE 40 MG/4 ML VIAL IV ONE (17:59)
[2022-03-18] MEDS: HEPARIN 100 UNIT/ML 5ML FLUSH FLUSH PRN (18:36)
[2022-03-18] MEDS: METOPROLOL SUCC 25MG EXT REL TAB PO SCH (20:47)
[2022-03-19] MEDS: ACETAMINOPHEN 325 MG TAB PO PRN ×2 (02:43→09:46)
[2022-03-19] MEDS: LEVOTHYROXINE SODIUM 125 MCG TABLET PO SCH (05:44)
[2022-03-19] MEDS: HEPARIN 100 UNIT/ML 5ML FLUSH FLUSH PRN ×2 (08:05→09:41)
[2022-03-19 08:12] LABS: Basophils # (auto) 0.04 K/uL (0-0.2); Basophils % (auto) 0.5 %; Eosinophils # (auto) 0.34 K/uL (0-0.50); Eosinophils % (auto) 4.2 %; Hematocrit (blood only) 25.4 % (34.1-44.9); Hemoglobin 8.4 g/dl (12.0-16.0); Immature Granulocytes # (auto) 0.02 K/uL (0.00-0.02); Immature Granulocytes % (auto) 0.2 %; Lymphocytes # (auto) 3.69 K/uL (1.2-3.4); Lymphocytes % (auto) 45.9 %; Mean Corpuscular Hemoglobin 30.3 pg (25.0-34.0); Mean Corpuscular Hgb Conc 33.1 g/dL (32.0-36.0); Mean Corpuscular Volume 91.7 fL (80.0-100.0); Mean Platelet Volume 9.4 fL (9.4-12.3); Monocytes # (auto) 0.92 K/uL (0.24-0.82); Monocytes % (auto) 11.4 %; Neutrophils # (auto) 3.03 K/uL (1.4-6.5); Neutrophils % (auto) 37.8 %; Platelet Count 332 K/uL (130-400); RDW Coefficient of Variation 16.2 % (11.5-14.5); RDW Standard Deviation 53.7 fL (36.4-46.3); Red Blood Count 2.77 M/uL (3.93-5.22); White Blood Count 8.04 K/ul (4.8-10.8)
[2022-03-19 08:52] LABS: Calcium 8.1 mg/dl (8.5-10.1); Creatinine Clr Calc Pharmacy 35.9 ml/min; Est GFR (African American) 46.3 ml/min; Est GFR (Non-African American) 39.9 ml/min; Potassium 4.3 mmol/L (3.5-5.1)
--- NOTE | 2022-03-19 08:55 | Hospitalist Progress Note ---
Date of Service March 19, 2022 Assessment & Plan (1) Abdominal pain: Plan: -03/18 had complaints of abdominal pain and nausea. -Does continue to have abdominal wall edema on exam, no acute abdomen. -CTAP shows perianal fistula with slight improvement from last imaging, no drainable abscess. Increase in bilateral pleural effusions and small ascites, diffuse body wall edema. Given Lasix 40mg IV x1 today, return to home dosing thereafter(40mg PO MWF, anasarca chronic problem). -Bowel regimen, possible pain was due to need for BM as patient's symptoms have improved. -Zofran as needed for nausea, prn pain medications. (2) Rectal bleeding: Plan: -Rectal bleeding occurred postoperatively after resumption of Xarelto following hemorrhoid surgery. -Hgb trended down to 7.7 on 03/14, stable at 8.4 and has not needed transfusion since early this admission. -No further bleeding episodes noted. -CT pelvis 03/09 shows apparent stool-filled tract/fistula which extends from the anus to the medial left gluteal fold. General Surgery recommends follow up outpatient with surgeon, otherwise sitz baths 3 times daily. -Completed a 5 day course of Ceftriaxone, Flagyl IV completed on 03/17. -Conversation had with patient and her daughter Cata about Xarelto risks/benefits. Risks include further bleeding given she did have bleeding with resuming Xarelto requiring a total of 5 units of blood this admission. Benefits include DVT/PE risk prevention, especially given her hypercoagulable state from cancer diagnosis. After discussing decision was made to hold off on Xarelto at this time in favor of further discussion with PCP after discharge. (3) Anemia due to acute blood loss: Plan: -She has received at least 5 units of packed red blood cells this admission, in the setting of rectal bleeding post-surgery. -Hgb trended down to 7.7 on 03/14, however has been stable for the last several days at ~8.5. -Trend CBC during admission. -Hold Xarelto as above. (4) SETH (acute kidney injury): Plan: -Now resolved. (5) Vaginal discharge: Plan: -Suspected from long standing vaginal pessary. -evaluated by OBGYN, swab showed Mira. -Completed one time dose of 150mg Diflucan. (6) Anasarca: Plan: -Bilateral leg and abdominal wall edema. -Resume home Lasix as above. -Last ECHO showed EF 70%, hyperdynamic. -Low salt diet. (7) Type 1 diabetes: Plan: -HbA1C 9.0 in October. Holding insulin pump and Dexcom. -Planning on continuing basal bolus insulin at SNF as she is lacking supplies for her pump at this time. Glycemic management consult appreciated. (8) CAD (coronary artery disease), [place] coronary artery: Plan: -Stable. Medical management (9) GERD (gastroesophageal reflux disease): Plan: -PPI BID. (10) Diastolic CHF: Plan: - Stable. Monitor intake and output. - Continue Lasix above. (11) Deep vein thrombosis (DVT) of right lower extremity: Plan: History of. Xarelto on hold due to rectal bleeding and after risk/benefit discussion with patient and family, on Lovenox 40 mg daily here for DVT prophylaxis. (12) Insulin pump status: Plan: - Pump has been deactivated. She is on basal bolus insulin at this time. (13) Hypothyroidism: Plan: -Continue levothyroxine 125 mcg daily. (14) Breast cancer: Plan: -Stage IV invasive ductal carcinoma. Last chemotherapy (Enhertu) was 5 weeks ago. 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 -Continue wound care, sitz baths. -Wound care follow up on discharge. Plan VTE Prophylaxis - Lovenox SQ Diet - T2DM, heart healthy FULL CODE Med/Surg Disposition - ultimately to SNF on discharge Admission and Anticipated Discharge Date Admission Date: February 26, 2022 Subjective No acute events overnight. She reports that her abdominal pain is better today, resolved, she feels that it was due to a way she was lying the day before. No chest pain, SOB. She states that she has body wall edema at baseline for the last few months, has been following with Dr. Ingram for such, who has been of the impression that her anasarca is more due to cancer and low protein intake than CHF. Had BM today, sore bottom after clean up afterward. Relieved with prn pain medications. Review of Systems Review of Systems: All systems reviewed are negative, apart from the ones contained in subjective Physical Exam Constitutional: WD/WN, vitals as above Respiratory: normal respiratory effort, lungs clear to auscultation Cardiovascular: RRR no murmurs anasarca, pitting edema to body wall, lower extremities, 2+ Gastrointestinal (Abdomen): normal bowel sounds, soft, nontender, no hepatosplenomegaly Skin: no rashes, warm and dry Psychiatric: A+Ox3, euthymic affect Results & Data Results & Data ([facility]) Vital Signs (Past 12 Hours) Vital Signs Temp Pulse Pulse Resp BP Pulse Ox O2 Del Method 03/19/22 08:39 36.7 C 79 16 145/75 H 93 Room Air 03/18/22 22:50 36.5 C 89 16 125/70 93 Room Air PG Care Time/CCT Total # of Minutes Spent Total Time Spent with Patient: Total time spent is greater than 50% in coordination of care (as documented) at patient's floor/unit and/or counseling patient: Coding Level of Care Code 98556 Subseq Hosp Care Lvl 3 Diagnoses Abdominal pain R10.9 Rectal bleeding K62.5 Anemia due to acute blood loss D62 SETH (acute kidney injury) N17.9 Vaginal discharge N89.8 Anasarca R60.1 Type 1 diabetes E10.9 CAD (coronary artery disease), [place] coronary artery I25.10 GERD (gastroesophageal reflux disease) K21.9 Diastolic CHF I50.30 Deep vein thrombosis (DVT) of right lower extremity I82.401 Insulin pump status Z96.41 Hypothyroidism E03.9 Breast cancer C50.919 IPMN (intraductal papillary mucinous neoplasm) D49.0 Anal fistula K60.3
[2022-03-19] MEDS ORDERED: LANTUS PER UNIT CHARGE SQ SCH (09:00)
[2022-03-19] MEDS ORDERED: FUROSEMIDE 40 MG/4 ML VIAL IV SCH (09:00)
[2022-03-19] MEDS: PSYLLIUM or GUAR GUM FIBER POWDER PACKET PO SCH (09:35)
[2022-03-19] MEDS: CHOLECALCIFEROL 5,000 UNITS 125 MCG TAB PO SCH (09:35)
[2022-03-19] MEDS: ENOXAPARIN INJ 40 MG/0.4 ML SYR SQ SCH (09:35)
[2022-03-19] MEDS: MAGNESIUM OXIDE 400 MG TAB PO SCH ×2 (09:35→20:37)
[2022-03-19] MEDS: PANTOprazole 40 MG TAB PO SCH ×2 (09:35→20:37)
[2022-03-19] MEDS: INSULIN ASPART PER UNIT SC SCH ×4 (09:41→20:37)
--- NOTE | 2022-03-19 13:16 | Pharmacy Report ---
Pharmacy Glycemic Short Note 2 - Date of Service March 19, 2022 - Glycemic Short BSG Results (Last 24 hours): 03/18/22 03/18/22 03/18/22 14:24 17:19 20:40 Glucose 272 H POC Glucose 257 H 261 H 03/19/22 03/19/22 03/19/22 07:51 08:29 12:12 Glucose 125 H POC Glucose 156 H 163 H OUTPATIENT ANTIDIABETIC REGIMEN: * Novolog insulin pump * Basal rates: * 0341-8238 = 0.45 units/hr * 6990-6827 = 0.55 units/hr * 2350-0476 = 0.50 units/hr * Total daily basal dose = 12 units/day * Carb Ratio: 15 * Sensitivity Factor: 55 * Goal range: 140-150 mg/dL * HbA1c = 8.7% (02/26/22) ASSESSMENT: 03/19: * Patient received total 25 units of insulin yesterday; 5 units basal + 20 units. * BSGs yesterday were [phone] mg/dl. Novolog parameters with breakfast only was tightened for this AM. * Fasting BSG today was 125 mg/dl. Lantus dose increased to 8 units this morning. * Pre-lunch BSG today was only slightly elevated above goal at 163 mg/dl. 03/18: * Fasting BSG above goal at 227mg/dl, fasting at goal previous 2 days, so no change in basal at this time unless trend continues. * Otherwise acceptable control for type 1 - 81 year old, continue regimen below. * BSG 200gm/dl pre-lunch yesterday, consider tightening CR at breakfast if lunch BSG above goal again today. 03/16: * BSGs [phone]/dL the last 24h. Fasting BSG low this AM, 78mg/dL. Patient received 9 units of basal and 13 units of bolus insulin yesterday. * Tolerating diet, continues on flagyl. * Given low fasting BSG this AM, Lantus decreased to 5 units. Goal BSG range increased to 120-160mg/dL. Breakfast Novolog parameters loosened by provider. 03/12: * Colleen received a total of 26 units of insulin yesterday, 10 units basal + 16 units bolus. * Fasting BSG was 94 mg/dL this AM. Will reduce basal insulin by 10%. * No changes in Novolog. 03/10: * Patient's BSGs yesterday were [phone] mg/dL. BSGs today have been 151- 143 mg/dL. * Patient received 28 units of insulin yesterday with 10 units of basal and 18 units of bolus. * Basal increased yesterday so continue. * BSGs relatively stable yesterday so continue Novolog parameters 03/09: * Colleen received 27 units of insulin yesterday, 9 units basal + 18 units bolus. BSGs were acceptable: [phone] mg/dL. * Fasting BSG elevated at 241 mg/dL this AM. Spoke with patient who stated she had 2 packs of lizzeth crackers prior to AM accucheck. Given fastings have consistently been above goal for the last 72 hours, will increase basal slightly today. No change to Novolog. PLAN FOR INPATIENT GLYCEMIC CONTROL: * Basal insulin * Lantus 8 units SC AM * Bolus insulin * NovoLog per scale ACHS or Q6hrs while NPO * Goal Range: Low 120 mg/dL - High 160 mg/dL * Correction Factor: 35 mg/dL/unit with breakfast, 40 mg/dL/unit with lunch, dinner, HS * Nutritional / Prandial insulin per carb ratio of 1 unit per 9 grams CHO consumed with breakfast 12 grams CHO consumed with lunch, dinner, HS
[2022-03-19] MEDS: METOPROLOL SUCC 25MG EXT REL TAB PO SCH (20:37)
[2022-03-20] MEDS: LEVOTHYROXINE SODIUM 125 MCG TABLET PO SCH (05:57)
[2022-03-20] MEDS: HEPARIN 100 UNIT/ML 5ML FLUSH FLUSH PRN (08:19)
--- NOTE | 2022-03-20 08:24 | Hospitalist Progress Note ---
Date of Service March 20, 2022 Assessment & Plan (1) Abdominal pain: Plan: -03/18 had complaints of abdominal pain and nausea. -Does continue to have abdominal wall edema on exam, no acute abdomen. -"CTAP shows perianal fistula with slight improvement from last imaging, no drainable abscess. Increase in bilateral pleural effusions and small ascites, diffuse body wall edema." -Continue home dose Lasix 40mg PO MWF (anasarca is a chronic known problem, follows with Dr. Ingram). -Continue bowel regimen. -Zofran as needed for nausea, PRN pain medications. (2) Rectal bleeding: Plan: -Rectal bleeding occurred postoperatively after resumption of Xarelto following hemorrhoid surgery. -Hgb trended down to 7.7 on 03/14, stable at 8.4 and has not needed transfusion since early this admission. -No further bleeding episodes noted. -CT pelvis 03/09 shows apparent stool-filled tract/fistula which extends from the anus to the medial left gluteal fold. General Surgery recommends follow up outpatient with surgeon, otherwise sitz baths 3 times daily. -Completed a 5 day course of Ceftriaxone, Flagyl IV completed on 03/17. -Conversation had this admission with patient and her daughter Cata about Xar elto risks/benefits. Risks include further bleeding given she did have bleeding with resuming Xarelto requiring a total of 5 units of blood this admission. Benefits include DVT/PE risk prevention, especially given her hypercoagulable state from cancer diagnosis. After discussing decision was made to hold off on Xarelto at this time in favor of further discussion with PCP after discharge. (3) Anemia due to acute blood loss: Plan: -She has received at least 5 units of packed red blood cells this admission, in the setting of rectal bleeding post-surgery. -Hgb trended down to 7.7 on 03/14, however has been stable for the last several days at ~8.5. -Trend CBC during admission. -Hold Xarelto as above. (4) SETH (acute kidney injury): Plan: -Now resolved. (5) Vaginal discharge: Plan: -Suspected from long standing vaginal pessary. -Evaluated by OBGYN on 03/06, swab showed Mira. -Completed one time dose of 150mg Diflucan. (6) Anasarca: Plan: -Bilateral leg and abdominal wall edema. -Resume home Lasix as above. -Last ECHO showed EF 70%, hyperdynamic. -Low salt diet. (7) Type 1 diabetes: Plan: -HbA1C 9.0 in October. Holding insulin pump and Dexcom. -Planning on continuing basal bolus insulin at [facility] as she is lacking supplies for her pump at this time. Glycemic management consult appreciated. (8) CAD (coronary artery disease), [place] coronary artery: Plan: -Stable. Medical management (9) GERD (gastroesophageal reflux disease): Plan: -PPI BID. (10) Diastolic CHF: Plan: - Stable. Monitor intake and output. - Continue Lasix above. (11) Deep vein thrombosis (DVT) of right lower extremity: Plan: History of. Xarelto on hold due to rectal bleeding and after risk/benefit discussion with patient and family, on Lovenox 40 mg daily here for DVT prophylaxis. (12) Insulin pump status: Plan: - Pump has been deactivated. She is on basal bolus insulin at this time. (13) Hypothyroidism: Plan: -Continue levothyroxine 125 mcg daily. (14) Breast cancer: Plan: -Stage IV invasive ductal carcinoma. Last chemotherapy (Enhertu) was 5 weeks ago. 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 -Continue wound care, sitz baths. -Wound care follow up on discharge. Plan VTE Prophylaxis - Lovenox SQ Diet - T2DM, heart healthy FULL CODE Med/Surg Disposition - ultimately to SNF on discharge, possibly tomorrow Admission and Anticipated Discharge Date Admission Date: February 26, 2022 Subjective No overnight events. No new labs today. Vitals normal, no fevers. Possible placement to [facility] pending authorization. Patient reports no abdominal pain, nausea, shortness of breath, chest pain. Does report feeling down today, states "I don't know. I'm just feeling a little depressed today". Review of Systems Review of Systems: All systems reviewed are negative, apart from the ones contained in subjective Physical Exam Constitutional: WD/WN, vitals as above Respiratory: normal respiratory effort, lungs clear to auscultation Cardiovascular: RRR, no murmur, no edema Gastrointestinal (Abdomen): normal bowel sounds, soft, nontender, no hepatosplenomegaly Skin: no rashes, warm and dry Psychiatric: alert and oriented, depressed affect Results & Data Results & Data ([facility]) Vital Signs (Past 12 Hours) Vital Signs Temp Pulse Pulse Resp BP Pulse Ox O2 Del Method 03/20/22 08:00 36.7 C 85 20 123/72 91 Room Air 03/19/22 21:00 Room Air 03/19/22 22:06 36.7 C 88 119/72 95 Room Air PG Care Time/CCT Total # of Minutes Spent Total Time Spent with Patient: Total time spent is greater than 50% in coordination of care (as documented) at patient's floor/unit and/or counseling patient: Coding Level of Care Code 15013 Subseq Hosp Care Lvl 2 Diagnoses Abdominal pain R10.9 Rectal bleeding K62.5 Anemia due to acute blood loss D62 SETH (acute kidney injury) N17.9 Vaginal discharge N89.8 Anasarca R60.1 Type 1 diabetes E10.9 CAD (coronary artery disease), [place] coronary artery I25.10 GERD (gastroesophageal reflux disease) K21.9 Diastolic CHF I50.30 Deep vein thrombosis (DVT) of right lower extremity I82.401 Insulin pump status Z96.41 Hypothyroidism E03.9 Breast cancer C50.919 IPMN (intraductal papillary mucinous neoplasm) D49.0 Anal fistula K60.3
[2022-03-20] MEDS: MAGNESIUM OXIDE 400 MG TAB PO SCH ×2 (09:57→20:26)
[2022-03-20] MEDS: PANTOprazole 40 MG TAB PO SCH ×2 (09:57→20:26)
[2022-03-20] MEDS: CHOLECALCIFEROL 5,000 UNITS 125 MCG TAB PO SCH (09:58)
[2022-03-20] MEDS: PSYLLIUM or GUAR GUM FIBER POWDER PACKET PO SCH (09:58)
[2022-03-20] MEDS: ENOXAPARIN INJ 40 MG/0.4 ML SYR SQ SCH (09:58)
[2022-03-20] MEDS: ACETAMINOPHEN 325 MG TAB PO PRN ×2 (10:03→14:04)
[2022-03-20] MEDS: LANTUS PER UNIT CHARGE SQ SCH (10:06)
[2022-03-20] MEDS: INSULIN ASPART PER UNIT SC SCH ×4 (10:06→20:17)
[2022-03-20] MEDS: METOPROLOL SUCC 25MG EXT REL TAB PO SCH (20:26)
[2022-03-21] MEDS: LEVOTHYROXINE SODIUM 125 MCG TABLET PO SCH (06:32)
[2022-03-21] MEDS: HEPARIN 100 UNIT/ML 5ML FLUSH FLUSH PRN ×2 (07:56→11:10)
[2022-03-21] MEDS: PANTOprazole 40 MG TAB PO SCH ×2 (08:36→21:00)
[2022-03-21] MEDS: CHOLECALCIFEROL 5,000 UNITS 125 MCG TAB PO SCH (08:36)
[2022-03-21] MEDS: MAGNESIUM OXIDE 400 MG TAB PO SCH ×2 (08:36→21:00)
[2022-03-21] MEDS: ENOXAPARIN INJ 40 MG/0.4 ML SYR SQ SCH (08:36)
[2022-03-21] MEDS: PSYLLIUM or GUAR GUM FIBER POWDER PACKET PO SCH (08:37)
--- NOTE | 2022-03-21 08:43 | Hospitalist Progress Note ---
Date of Service March 21, 2022 Assessment & Plan (1) Abdominal pain: Plan: -03/18 had complaints of abdominal pain and nausea, improved, then reported again on 03/21. Benign abdomen, save for abdominal wall edema. -"CTAP shows perianal fistula with slight improvement from last imaging, no drainable abscess. Increase in bilateral pleural effusions and small ascites, diffuse body wall edema." -Continue home dose Lasix 40mg PO MWF (anasarca is a chronic known problem, follows with Dr. Ingram). -Continue bowel regimen. -Zofran as needed for nausea, Tylenol/oxycodone prn pain. (2) Rectal bleeding: Plan: -Rectal bleeding occurred postoperatively after resumption of Xarelto following hemorrhoid surgery. -Hgb trended down to 7.7 on 03/14, stable at 8.9 and has not needed transfusion since early this admission. -No further bleeding episodes noted. -CT pelvis 03/09 shows apparent stool-filled tract/fistula which extends from the anus to the medial left gluteal fold. General Surgery recommends follow up outpatient with surgeon, otherwise sitz baths 3 times daily. -Completed a 5 day course of Ceftriaxone, Flagyl IV completed on 03/17. -Conversation had this admission with patient and her daughter Cata about Xarelto risks/benefits. Risks include further bleeding given she did have bleeding with resuming Xarelto requiring a total of 5 units of blood this admission. Benefits include DVT/PE risk prevention, especially given her hypercoagulable state from cancer diagnosis. After discussing decision was made to hold off on Xarelto at this time in favor of further discussion with PCP aft er discharge. (3) Anemia due to acute blood loss: Plan: -She has received at least 5 units of packed red blood cells this admission, in the setting of rectal bleeding post-surgery. -Hgb trended down to 7.7 on 03/14, however has been stable for the last several days at ~9. -Trend CBC during admission. -Hold Xarelto as above. (4) SETH (acute kidney injury): Plan: -Now resolved. (5) Vaginal discharge: Plan: -Suspected from long standing vaginal pessary. -Evaluated by OBGYN on 03/06, swab showed Mira. -Completed one time dose of 150mg Diflucan. (6) Anasarca: Plan: -Bilateral leg and abdominal wall edema. -Continue home Lasix as above. -Last ECHO showed EF 70%, hyperdynamic. -Low salt diet. (7) Type 1 diabetes: Plan: -HbA1C 9.0 in October. Holding insulin pump and Dexcom. -Planning on continuing basal bolus insulin at SNF as she is lacking supplies for her pump at this time. Glycemic management consult appreciated. (8) CAD (coronary artery disease), [place] coronary artery: Plan: -Stable. Medical management. (9) GERD (gastroesophageal reflux disease): Plan: -PPI BID. (10) Diastolic CHF: Plan: - Stable. Monitor intake and output. - Continue Lasix above. (11) Deep vein thrombosis (DVT) of right lower extremity: Plan: - History of. Xarelto on hold due to rectal bleeding and after risk/benefit discussion with patient and family, on Lovenox 40 mg daily here for DVT pro phylaxis. (12) Insulin pump status: Plan: - Pump has been deactivated. She is on basal bolus insulin at this time. (13) Hypothyroidism: Plan: -Continue levothyroxine 125 mcg daily. (14) Breast cancer: Plan: -Stage IV invasive ductal carcinoma. Last chemotherapy (Enhertu) was 5 weeks ago. 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 -Continue wound care, sitz baths. -Wound care follow up on discharge. Plan VTE Prophylaxis - Lovenox SQ Diet - T2DM, heart healthy FULL CODE Med/Surg Disposition - ultimately to SNF on discharge, possibly tomorrow Admission and Anticipated Discharge Date Admission Date: February 26, 2022 Subjective No overnight events. Vitals normal, no fevers. Colleen does complain of lower abdominal pain today. No complaints per nursing staff of blood in her stools. No complaints of chest pain or trouble breathing. No nausea. Uses oxycodone at home for pain. Possible placement to [facility] upcoming pending authorization. Review of Systems Review of Systems: All systems reviewed are negative, apart from the ones contained in subjective Physical Exam Constitutional: WD/WN, vitals as above Respiratory: normal respiratory effort, lungs clear to auscultation Cardiovascular: RRR, no murmur, no edema Gastrointestinal (Abdomen): abdomen soft, mildly tender in bilateral lower quadrants, no rebound or guarding, noted continued abdominal wall edema unchanged from yesterday Skin: no rashes, warm and dry Psychiatric: A+Ox3, euthymic affect Results & Data Results & Data ([facility]) Vital Signs (Past 12 Hours) Vital Signs Temp Pulse Resp BP Pulse Ox O2 Del Method 03/21/22 07:29 36.5 C 82 18 133/58 L 93 Room Air 03/20/22 22:37 36.7 C 77 16 115/70 93 Room Air 03/20/22 21:17 Room Air PG Care Time/CCT Total # of Minutes Spent Total Time Spent with Patient: Total time spent is greater than 50% in coordination of care (as documented) at patient's floor/unit and/or counseling patient: Coding Level of Care Code 54944 Subseq Hosp Care Lvl 2 Diagnoses Abdominal pain R10.9 Rectal bleeding K62.5 Anemia due to acute blood loss D62 SETH (acute kidney injury) N17.9 Vaginal discharge N89.8 Anasarca R60.1 Type 1 diabetes E10.9 CAD (coronary artery disease), [place] coronary artery I25.10 GERD (gastroesophageal reflux disease) K21.9 Diastolic CHF I50.30 Deep vein thrombosis (DVT) of right lower extremity I82.401 Insulin pump status Z96.41 Hypothyroidism E03.9 Breast cancer C50.919 IPMN (intraductal papillary mucinous neoplasm) D49.0 Anal fistula K60.3
[2022-03-21] MEDS: LANTUS PER UNIT CHARGE SQ SCH (09:24)
[2022-03-21] MEDS: INSULIN ASPART PER UNIT SC SCH ×4 (09:24→21:21)
[2022-03-21] MEDS: ACETAMINOPHEN 325 MG TAB PO PRN (09:28)
[2022-03-21] MEDS ORDERED: oxyCODONE HCL IR 5 MG TAB (IMMEDIATE RELEASE) PO PRN (10:32)
[2022-03-21 11:24] LABS: Basophils # (auto) 0.04 K/uL (0-0.2); Basophils % (auto) 0.6 %; Eosinophils # (auto) 0.27 K/uL (0-0.50); Eosinophils % (auto) 4.2 %; Hematocrit (blood only) 27.1 % (34.1-44.9); Hemoglobin 8.9 g/dl (12.0-16.0); Immature Granulocytes # (auto) 0.01 K/uL (0.00-0.02); Immature Granulocytes % (auto) 0.2 %; Lymphocytes # (auto) 2.66 K/uL (1.2-3.4); Lymphocytes % (auto) 41.5 %; Mean Corpuscular Hemoglobin 29.7 pg (25.0-34.0); Mean Corpuscular Hgb Conc 32.8 g/dL (32.0-36.0); Mean Corpuscular Volume 90.3 fL (80.0-100.0); Mean Platelet Volume 9.1 fL (9.4-12.3); Monocytes # (auto) 0.67 K/uL (0.24-0.82); Monocytes % (auto) 10.5 %; Neutrophils # (auto) 2.76 K/uL (1.4-6.5); Platelet Count 418 K/uL (130-400); RDW Coefficient of Variation 16.3 % (11.5-14.5); RDW Standard Deviation 53.6 fL (36.4-46.3); White Blood Count 6.41 K/ul (4.8-10.8)
[2022-03-21 11:47] LABS: Albumin Globulin Ratio 0.7 (0.9-2); Albumin Level 2.1 gm/dl (3.4-5.0); BUN Creatinine Ratio 29.5 (10-20); Bilirubin,Total 0.6 mg/dl (0.2-1.0); Calcium 8.2 mg/dl (8.5-10.1); Creatinine Clr Calc Pharmacy 42.4 ml/min; Est GFR (African American) 57.7 ml/min; Est GFR (Non-African American) 49.8 ml/min; Globulin 2.9 gm/dl (2.5-4.0); Potassium 4.1 mmol/L (3.5-5.1)
[2022-03-21] MEDS: METOPROLOL SUCC 25MG EXT REL TAB PO SCH (21:00)
[2022-03-22] MEDS: LEVOTHYROXINE SODIUM 125 MCG TABLET PO SCH (06:06)
[2022-03-22] MEDS: CHOLECALCIFEROL 5,000 UNITS 125 MCG TAB PO SCH (08:57)
[2022-03-22] MEDS: MAGNESIUM OXIDE 400 MG TAB PO SCH (08:57)
[2022-03-22] MEDS: PANTOprazole 40 MG TAB PO SCH (08:57)
[2022-03-22] MEDS: PSYLLIUM or GUAR GUM FIBER POWDER PACKET PO SCH (08:57)
[2022-03-22] MEDS: ENOXAPARIN INJ 40 MG/0.4 ML SYR SQ SCH (08:57)
[2022-03-22] MEDS ORDERED: LANTUS PER UNIT CHARGE SQ SCH (09:00)
[2022-03-22] MEDS ORDERED: FUROSEMIDE 40 MG TAB PO SCH (09:00)
[2022-03-22] MEDS: ACETAMINOPHEN 325 MG TAB PO PRN (09:04)
[2022-03-22] MEDS: INSULIN ASPART PER UNIT SC SCH (09:07)
--- NOTE | 2022-03-22 10:50 | Pharmacy Report ---
Pharmacy Glycemic Short Note 2 - Date of Service March 22, 2022 - Glycemic Short BSG Results (Last 24 hours): 03/21/22 03/21/22 03/21/22 11:07 12:17 17:27 Glucose 140 H POC Glucose 149 H 127 H 03/21/22 03/22/22 20:36 08:07 Glucose POC Glucose 139 H 209 H OUTPATIENT ANTIDIABETIC REGIMEN: * Novolog insulin pump * Basal rates: * 3588-2044 = 0.45 units/hr * 9788-2130 = 0.55 units/hr * 6393-0060 = 0.50 units/hr * Total daily basal dose = 12 units/day * Carb Ratio: 15 * Sensitivity Factor: 55 * Goal range: 140-150 mg/dL * HbA1c = 8.7% (02/26/22) From 02/26/22: * Spoke extensively with patient at bedside on 02/26/22. Reports following with SHIVA El, at [facility]. States she was due for an appointment recently but cancelled due to not feeling well which does appear to be true from the encounters I can see. Reports difficulty with DM management for years, especially recently with diagnosis and subsequent oreilly with cancer. States that basal rates were changed during last visit but cannot remember to what. I interrogated pump settings and found the settings listed above. States provider does not want her BSGs greater than 250 mg/dL. Average BSG at current A1c is 232 mg/dL so patient is likely not meeting this goal. Reports poor appetite in general since cancer diagnosis, especially over the last week. Changes sets every 3 days at home but states she needs to reorder supplies as she only has two sets left. Has not been using CGM as she finds it too difficult to operate. States she checks her BSG via fingerstick 4 times per day: upon wakening/before breakfast, 30-60 minutes after lunch and dinner, and then before bedtime. Instructed her to start checking BSG before all meals and before bedtime. ASSESSMENT: 03/22: * BSGs reasonably well-controlled yesterday, ranging 108-149 mg/dL * Fasting BSG elevated this morning at 209 mg/dL * Anticipating transfer to [facility], plan per development educator is to continue SC basal/bolus while at rehab facility 03/19: * Patient received total 25 units of insulin yesterday; 5 units basal + 20 units. * BSGs yesterday were [phone] mg/dl. Novolog parameters with breakfast only was tightened for this AM. * Fasting BSG today was 125 mg/dl. Lantus dose increased to 8 units this morning. * Pre-lunch BSG today was only slightly elevated above goal at 163 mg/dl. 03/18: * Fasting BSG above goal at 227mg/dl, fasting at goal previous 2 days, so no change in basal at this time unless trend continues. * Otherwise acceptable control for type 1 - 81 year old, continue regimen below. * BSG 200gm/dl pre-lunch yesterday, consider tightening CR at breakfast if lunch BSG above goal again today. Background: * 81 yo F admitted for rectal bleeding and anemia. Pharmacy has been consulted to assist with inpatient glycemic management. On insulin pump as an outpatient which was removed upon presentation to the ED. A1c demonstrates mediocre control of T1DM, would prefer A1c be less than 8% ideally. Patient known to pharmacy glycemic service. Currently NPO. * Spoke with patient extensively at bedside this morning. Retrieved pump settings. Given current NPO status, lack of pump supplies until more are ordered, and unknown procedural status, patient was in agreement to continue with subcutaneous basal-bolus injections to control BSGs while admitted. Will likely transition to pump day of discharge. * BSGs have been good so far: 172-115-155 mg/dL. * Gave the patient 5 units of Lantus x 1 at lunchtime today. Novolog adjusted to reflect previous admission data. Will continue to monitor closely. PLAN FOR INPATIENT GLYCEMIC CONTROL: * Basal insulin * Lantus 7 units SC AM * Bolus insulin * NovoLog per scale ACHS or Q6hrs while NPO * Goal Range: Low 120 mg/dL - High 160 mg/dL * Correction Factor: 35 mg/dL/unit with breakfast, 40 mg/dL/unit with lunch, dinner, HS * Nutritional / Prandial insulin per carb ratio of 1 unit per 8 grams CHO consumed with breakfast 12 grams CHO consumed with lunch, dinner, HS
--- NOTE | 2022-03-29 15:05 | Discharge Summary ---
Date of Service March 22, 2022 Principal Diagnosis abdominal pain Discharge Exam Constitutional WD/WN, vitals as above Eyes + anicteric sclerae; normal pupil size Respiratory normal respiratory effort, lungs clear to auscultation Cardiovascular RRR, no murmur, no edema Gastrointestinal (Abdomen) normal bowel sounds, soft, nontender, no hepatosplenomegaly Inspection/Auscultation: abdomen normal to inspection; abdomen not distended Percussion/Palpation: abdomen soft; abdomen nontender, no guarding and abdomen not rigid Skin no rashes, warm and dry Psychiatric A+Ox3, euthymic affect Discharge Data Allergies Allergy/AdvReac Type Severity Reaction Status Date / Time lisinopril AdvReac Intermediate Elevates Verified 02/25/22 22:59 potassium losartan AdvReac Intermediate Elevates Verified 02/25/22 22:59 potassium Consultations 02/26/22 00:40 ED Decision to Admit Stat 02/26/22 06:43 Consult Gastroenterology Routine 02/26/22 10:47 Consult General Surgery Routine 02/26/22 12:48 Consult Locomotive Mechanic Apprentice Routine 03/05/22 18:49 Consult Gynecology Routine Ordered Studies 02/26/22 10:58 CT abd pelvis IV con only Stat 03/09/22 14:47 CT pelvis w/IV con only Routine 03/18/22 11:08 CT Abd and Pelvis [CT abd pelvis IV con only] Urgent Hospital Course (1) Abdominal pain: -03/18 had complaints of abdominal pain and nausea, improved, then reported again on 03/21. Benign abdomen, save for abdominal wall edema. -"CTAP shows perianal fistula with slight improvement from last imaging, no drainable abscess. Increase in bilateral pleural effusions and small ascites, diffuse body wall edema." -Continue home dose Lasix 40mg PO MWF (anasarca is a chronic known problem, follows with Dr. Ingram). -Continue bowel regimen. -Zofran as needed for nausea, Tylenol/oxycodone prn pain. (2) Rectal bleeding: -Rectal bleeding occurred postoperatively after resumption of Xarelto following hemorrhoid surgery. -Hgb trended down to 7.7 on 03/14, stable at 8.9 and has not needed transfusion since early this admission. -No further bleeding episodes noted. -CT pelvis 03/09 shows apparent stool-filled tract/fistula which extends from the anus to the medial left gluteal fold. General Surgery recommends follow up outpatient with surgeon, otherwise sitz baths 3 times daily. -Completed a 5 day course of Ceftriaxone, Flagyl IV completed on 03/17. -Conversation had this admission with patient and her daughter Cata about Xarelto risks/benefits. Risks include further bleeding given she did have bleeding with resuming Xarelto requiring a total of 5 units of blood this admission. Benefits include DVT/PE risk prevention, especially given her hypercoagulable state from cancer diagnosis. After discussing decision was made to hold off on Xarelto at this time in favor of further discussion with PCP after discharge. (3) Anemia due to acute blood loss: -She has received at least 5 units of packed red blood cells this admission, in the setting of rectal bleeding post-surgery. -Hgb trended down to 7.7 on 03/14, however has been stable for the last several days at ~9. -Trend CBC during admission. -Hold Xarelto as above. (4) SETH (acute kidney injury): -Now resolved. (5) Vaginal discharge: -Suspected from long standing vaginal pessary. -Evaluated by OBGYN on 03/06, swab showed Mira. -Completed one time dose of 150mg Diflucan. (6) Anasarca: -Bilateral leg and abdominal wall edema. -Continue home Lasix as above. -Last ECHO showed EF 70%, hyperdynamic. -Low salt diet. (7) Type 1 diabetes: -HbA1C 9.0 in October. Holding insulin pump and Dexcom. -Planning on continuing basal bolus insulin at [facility] as she is lacking supplies fo r her pump at this time. Glycemic management consult appreciated. (8) CAD (coronary artery disease), [place] coronary artery: -Stable. Medical management. (9) GERD (gastroesophageal reflux disease): -PPI BID. (10) Diastolic CHF: - Stable. Monitor intake and output. - Continue Lasix above. (11) Deep vein thrombosis (DVT) of right lower extremity: - History of. Xarelto on hold due to rectal bleeding and after risk/benefit discussion with patient and family, on Lovenox 40 mg daily here for DVT prophylaxis. (12) Insulin pump status: - Pump has been deactivated. She is on basal bolus insulin at this time. (13) Hypothyroidism: -Continue levothyroxine 125 mcg daily. (14) Breast cancer: -Stage IV invasive ductal carcinoma. Last chemotherapy (Enhertu) was 5 weeks ago. 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 -treated with wound care, sitz baths. -Wound care follow up on discharge. Total Time Total Time Spent Total Time Spent (In Minutes): 35 Discharge Plan Discharge Items Patient Disposition: Transfer [facility] Reason For Visit: RECTAL BLEEDING, ANEMIA Discharge Diagnosis: anemia Activity: Resume your previous activity Non-emergency contact: Primary Care Provider Call non-emergency contact if: you have any medication questions Follow-up/Referrals: Liz Pedraza MD [Primary Care Provider] - Diet: Carb Count or DM1 and Low Sodium (2gm) Addtl Attending Provider Instructions: recommend folllowup with PCP to discuss resuming xarelto. 3 units of Novolog with meals (hold if skips meal) + low dose sliding scale ACHS Blood Sugar 150 or less 0 units Blood Sugar 151-200 1 units Blood Sugar 201-250 2 units Blood Sugar 251-300 3 units Blood Sugar greater than 300 5 units and call MD Pending Studies at Discharge: No Stand-Alone Forms: [employer], Smoking Cessation Skilled Items Patient informed of condition?: Yes DNR: No Discharge Level of Care: Skilled Communicable Disease: No Discharge Prognosis: Stable Lines: None Urinary Catheter: Yes Medications and DC Order Prescriptions: New insulin aspart U-100 [Novolog U-100 Insulin aspart] 100 unit/mL Solution See Rx Instructions .ROUTE .COMPLEX Qty: 10 0RF Rx Instructions: 3 units of Novolog with meals (hold if skips meal) + low dose sliding scale ACHS Blood Sugar 150 or less 0 units Blood Sugar 151-200 1 units Blood Sugar 201-250 2 units Blood Sugar 251-300 3 units Blood Sugar greater than 300 5 units and call oxycodone 5 mg Tablet 5 mg PO Q4H PRN (Reason: severe pain (scale score 7-10)) Qty: 10 0RF Continued levothyroxine 125 mcg tablet 125 mcg PO DAILY Qty: 90 0RF omeprazole 20 mg tablet,delayed release (DR/EC) 20 mg PO QAM Label Comments: QAM (DME) Contour Next Test Strips Strip See Rx Instructions .ROUTE .MEDSUPPLY Qty: 400 3RF Rx Instructions: test 5 times daily if needed for calibration (DME) insulin syringe-needle U-100 [BD Insulin Syringe] 0.3 mL 29 gauge x 1/2" syringe See Rx Instructions miscellaneous .MEDSUPPLY Qty: 100 5RF Rx Instructions: To be used with pump failure cholecalciferol (vitamin D3) 125 mcg (5,000 unit) capsule 5,000 unit PO QAM (DME) Wheeled Walker Misc See Rx Instructions .Route Qty: 1 0RF Rx Instructions: ROLLATOR WITH SEAT AND BRAKES L. acidophilus/Bifid. animalis 31 billion cell capsule 1 cap PO BID (DME) Dexcom G6 Sensor Device See Rx Instructions .ROUTE .MEDSUPPLY Qty: 3 Rx Instructions: As directed ([facility]) Dexcom G6 Transmitter Device See Rx Instructions .ROUTE .MEDSUPPLY Qty: 1 Rx Instructions: As directed ([facility]) MiniMed 530G Insulin Pump Misc See Rx Instructions .ROUTE .MEDSUPPLY Qty: 1 Rx Instructions: As directed, at home acetaminophen [Tylenol] 325 mg Capsule 650 mg PO QID PRN (Reason: Pain) furosemide [Lasix] 20 mg tablet 40 mg PO .COMPLEX Rx Instructions: 40 mg MO Tue; metoprolol succinate 25 mg tablet extended release 24 hr 25 mg PO QPM oxycodone 5 mg tablet 5 mg PO Q4 PRN (Reason: Pain) magnesium oxide 400 mg magnesium Tablet 400 mg PO BID Changed insulin glargine [Lantus U-100 Insulin] 100 unit/mL solution 7 unit subcut DAILY Qty: 10 0RF Label Comments: ONLY USES IF INSULIN PUMP FAILS Rx Instructions: in morning Discontinued insulin aspart U-100 [Novolog U-100 Insulin aspart] 100 unit/mL solution 30 unit continuous subcutaneous infusion DAILY 90 Days Qty: 30 3RF Rx Instructions: via insulin pump Discharge Orders: Discharge Order (Routine); Ordered 03/22/22 Ordered By: Gino Wilson Admission Data Admit Date/Time: 02/26/22 00:36 Attending Provider: Gino Wilson Admit Provider: Willard Mar Primary Care Provider: Liz Pedraza Other Providers: [facility] ; Willard Mar ; Glenn Davalos ; Александр Butler ; Jimi Suarez ; [facility] ; [facility] ; Latonya Keita ; [facility] ; [place] ; [facility] Other Interventions: Discharge Summary Assessment (RN) Last Done: 03/22/22 10:40 Coding Level of Care Code D/C DAY MANAGEMENT >30 MINS Diagnoses Abdominal pain R10.9 Rectal bleeding K62.5 Anemia due to acute blood loss D62 SETH (acute kidney injury) N17.9 Vaginal discharge N89.8 Anasarca R60.1 Type 1 diabetes E10.9 CAD (coronary artery disease), [place] coronary artery I25.10 GERD (gastroesophageal reflux disease) K21.9 Diastolic CHF I50.30 Deep vein thrombosis (DVT) of right lower extremity I82.401 Insulin pump status Z96.41 Hypothyroidism E03.9 Breast cancer C50.919 IPMN (intraductal papillary mucinous neoplasm) D49.0 Anal fistula K60.3
== END 2022-03-22 12:02 | DRG 813 ==
LOC: ED 17:48 → 2E 02-26 00:36 → SUATTDRO 02-26 00:36 → 2E 02-26 02:20 → 1E 02-26 13:02 → 3N 02-28 18:39

== ENCOUNTER 2022-05-09 09:28 | Inpatient (IN) ==
--- NOTE | 2022-05-09 10:34 | Emergency Department Note ---
History of Present Illness General Chief complaint: Fall Stated complaint: FALL, HEAD INJURY Time Seen by Provider: 05/09/22 10:01 Source: patient Mode of arrival: ambulatory Limitations: altered mental status History of Present Illness The patient is an 81-year-old female who arrives to the ED for evaluation post fall from lift chair sometime over the night between 10pm and 9am. She lives with her son who found her laying on the left side of her body in front of her chair upon waking this morning. The patient is alert and oriented x 3 but does not remember falling. She reports left elbow pain with palpation and baseline bilateral knee pain. Family at bedside reports worsening weakness and ambulation since admission in March for CHF exacerbation. The patient reports she previously was prescribed Xarelto but has since been discontinued. Home Medications Medication Instructions Recorded Confirmed Type cholecalciferol (vitamin D3) 125 5,000 unit PO QAM 12/25/19 04/26/22 History mcg (5,000 unit) capsule omeprazole 20 mg tablet,delayed 20 mg PO QAM 03/27/20 04/26/22 History release blood-glucose sensor ([employer] G6 #3 ea 09/22/20 04/26/22 History Sensor device) blood-glucose transmitter (Dexcom #1 ea 09/22/20 04/26/22 History G6 Transmitter device) subcutaneous insulin pump (MiniMed #1 ea 09/22/20 04/26/22 History 530G Insulin Pump) acetaminophen 325 mg capsule 650 mg PO QID PRN Pain 01/09/21 04/26/22 History (Tylenol) metoprolol succinate 25 mg 25 mg PO QPM 03/17/21 04/26/22 History tablet,extended release 24 hr Lactobacillus 1 cap PO BID 03/26/21 04/26/22 History acidophilus-Bifidobac.animalis 31 billion cell capsule blood sugar diagnostic (Contour #400 ea 04/23/21 04/26/22 Rx Next Test Strips) Wheeled Walker #1 ea 05/14/21 04/26/22 Rx furosemide 20 mg tablet (Lasix) 40 mg PO 3XWK 09/29/21 04/26/22 History insulin syringe-needle U-100 0.3 #100 ea 10/14/21 04/26/22 Rx mL 29 gauge x 1/2" (BD Insulin Syringe) levothyroxine 125 mcg tablet 125 mcg PO DAILY #90 tabs 02/08/22 04/26/22 Rx magnesium oxide 400 mg PO BID 02/25/22 04/26/22 History insulin aspart U-100 100 unit/mL 0 unit continuous subcutaneous 04/23/22 04/26/22 History subcutaneous solution (Novolog infusion CONTINOUS U-100 Insulin aspart) insulin glargine 100 unit/mL 7 unit subcut DAILY PRN ONLY IF 04/23/22 04/26/22 History subcutaneous solution (Lantus INSULIN PUMP FAILS U-100 Insulin) Allergies Allergy/AdvReac Type Severity Reaction Status Date / Time lisinopril AdvReac Intermediate Elevates Verified 04/26/22 10:40 potassium losartan AdvReac Intermediate Elevates Verified 04/26/22 10:40 potassium Past Med/Surg History Medical History Anasarca Secondary to nutritional deficiency and possibly component of diastolic HF per 05/2021 cardio records > diuretics adjusted and GUS wraps for legs recommended Anemia Hgb 9s per chart review Deep vein thrombosis (DVT) of right lower extremity Non-occlusive DVT (right peroneal vein)- 08/2019 while on chemo Reason for Xarelto Diabetes mellitus type 1 + insulin pump Follows with 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 Lozada (MRI abd rec in one year) Lung cancer Mets from breast ca- currently undergoing- Enhertu targeted tx for lung nodules q3 weeks Mixed conductive and sensorineural hearing loss of right ear with restricted hearing of left ear Multiple pulmonary nodules Under surveillance by CTS Tooth abscess 5 teeth possible abscesses- plan for upcoming extraction Urinary incontinence UTI (urinary tract infection) Current symptoms (no testing done)- rx'd cipro BID (to start 11/10/21) Surgical History History of anesthesia reaction Sister > slow to wake History of breast biopsy Right History of carpal tunnel release R/L History of cataract surgery B/L History of cholecystectomy History of colonoscopy History of ERCP History of esophagogastroduodenoscopy (EGD) Large hiatal hernia, non-bleeding duodenal ulcer (done for iron def anemia evaluation) History of hip surgery Left s/p femur fracture History of tonsillectomy and adenoidectomy History of tooth extraction History of vascular access device APort--left side of chest S/P mastectomy Right breast, with sentinel lymph node biopsy, Dr. Preet Burdick, [facility] S/P mastectomy right S/P thyroid biopsy benign Family History Sister Pancreatic cancer Breast cancer Cancer Father Lung cancer Cancer Brother Diabetes Brother Diabetes Parkinson disease Grandfather (Maternal) Myocardial infarction Other No family history of adverse response to anesthesia No family history of bleeding disorder Denies family history of Ovarian cancer Prostate cancer Heart disease Colorectal cancer Hypertension Stroke Asthma Social History Smoking Status: Never smoker Second Hand Exposure: No; Hx Alcohol Use: No Hx Substance Use: No Preferred Language: Congolese Communication Ability: Effective Visual Impairment: No Limitations Hearing Ability: Normal Chain Maker Hand Required: No Beliefs That Will Affect Care: None marital status: / Current Living Situation: Family Current Living Situation Comment: SON LIVES WITH HER current occupational status: retired Other Information That Helps Us Care for You: No Feels Safe at Home: Yes Safety Concerns: Feels Safe At This Time caffeine: Yes Dental Care, Regularly: Yes Physical Activity Frequency: Does not Exercise Seatbelt Use: always Sunscreen Use: Yes Assistive Devices: Glasses, Walker and Other Assistive Devices Comment: INSULIN PUMP Review of Systems A total of 10 systems reviewed and were otherwise negative Physical Exam Vital Signs Vital Signs - 24 hr 05/09/22 09:49 05/09/22 11:50 Temperature 36.6 C Temperature Source Temporal Artery Scan Pulse Rate 109 H Pulse Rate [Apical] 101 H Respiratory Rate 18 18 Respiratory Depth Normal Blood Pressure 186/100 H Blood Pressure [Left Arm] 148/83 H Blood Pressure Mean 128 Blood Pressure Mean [Left Arm] 104 Pulse Oximetry 98 93 Oxygen Delivery Method Room Air Room Air Sepsis Recent Fever Within 48 Hours No Sepsis New/Unexplained Change in Mental Status N/A Sepsis Action Taken by Nursing No Action Required VITALS: Vitals are noted on the nurse's note and reviewed by myself. GENERAL: This is an 81-year-old female, in no acute distress, chronically ill- appearing, sitting up in bed. EARS: External auditory canals clear, tympanic membranes pearly fox without erythema or effusion bilaterally. EYES: Pupils equal round and reactive to light and accommodation. MOUTH: Mucous membranes somewhat dry. NECK: Supple without nuchal rigidity. Cervical spine is nontender. HEART: Systolic murmur noted. Regular rate and rhythm. LUNGS: Crackles bilateral bases. ABDOMEN: Soft, nontender to palpation. EXTREMITIES: 2+ pitting edema bilaterally. NEURO: Patient was alert and oriented to person place and time. Course Administered Medications Insulin Human Regular 250 (units/ Sodium Chloride) 250 mls @ 2 mls/hr IV .Q24H JODI; Protocol Stop: 06/08/22 15:59 Last Admin: 05/09/22 16:13 Dose: 2 units/hr, 2 mls/hr Documented By: DAFNE Co-signed By: CHALO Discontinued Medications Furosemide (Furosemide 40 Mg/4 Ml Vial) 40 mg IV ONE ONE Stop: 05/09/22 15:06 Last Admin: 05/09/22 16:14 Dose: 40 mg Documented By: DAFNE Sodium Chloride (Nss) 500 mls @ 75 mls/hr IV .Q6H40M JODI Stop: 06/08/22 12:59 Last Infusion: 05/09/22 15:55 Dose: 0 mls/hr Documented By: Admin: 05/09/22 14:06 Dose: 75 mls/hr Documented By: [id number] Ceftriaxone Sodium (Rocephin) 2,000 mg in 70 mls @ 140 mls/hr IV NOW STA Stop: 05/09/22 14:28 Last Infusion: 05/09/22 15:54 Dose: 0 mls/hr Documented By: Admin: 05/09/22 14:58 Dose: 140 mls/hr Documented By: [id number] Insulin Human Regular 250 (units/ Sodium Chloride) 250 mls @ 2 mls/hr IV .Q24H JODI; Protocol Stop: 06/08/22 14:44 Last Admin: 05/09/22 16:22 Dose: Not Given Documented By: DAFNE Insulin Human Regular (Novolin-R Insulin Per Unit Charge) 5 units IV NOW STA Stop: 05/09/22 12:55 Last Admin: 05/09/22 14:06 Dose: 5 units Documented By: [id number] Co-signed By: GEOFFREY Miscellaneous (Insulin Protocol Goal Range ) 1 each N/A ONE ONE Stop: 05/09/22 14:20 Last Admin: 05/09/22 16:23 Dose: Not Given Documented By: DAFNE Medical Decision Making Differential Diagnosis Infection, dehydration, metabolic abnormality, hypo/hyperglycemia, electrolyte disturbance, anemia, hypoxia, cardiac sources, intracerebral event, toxicologic, neurologic, as well as other pathologies. Medical Records Attestation: I reviewed the patient's medical records. Home Medications Current Medication List: was personally reviewed by me Laboratory Data Attestation: I reviewed the patient's lab results. 05/09/22 11:50 05/09/22 11:50 Lab Results 05/09/22 05/09/22 05/09/22 Range/Units 11:50 11:50 11:50 WBC 10.34 (4.8-10.8) K/ul RBC 3.13 L (3.93-5.22) M/uL Hgb 8.7 L (12.0-16.0) g/dl Hct 26.7 L (34.1-44.9) % MCV 85.3 (80.0-100.0) fL MCH 27.8 (25.0-34.0) pg MCHC 32.6 (32.0-36.0) g/dL RDW Std Deviation 53.5 H (36.4-46.3) fL RDW Coeff of Mikayla 17.2 H (11.5-14.5) % Plt Count 271 (130-400) K/uL MPV 10.3 (9.4-12.3) fL Immature Gran % (Auto) 0.4 % Neut % (Auto) 86.0 % Lymph % (Auto) 7.3 % [place] % (Auto) 6.2 % Eos % (Auto) 0.0 % Baso % (Auto) 0.1 % Neut # (Auto) 8.90 H (1.4-6.5) K/uL Lymph # (Auto) 0.75 L (1.2-3.4) K/uL [place] # (Auto) 0.64 (0.24-0.82) K/uL Eos # (Auto) 0.00 (0-0.50) K/uL Baso # (Auto) 0.01 (0-0.2) K/uL Immature Gran # (Auto) 0.04 H (0.00-0.02) K/uL Sodium 135 L (136-145) mmol/L Potassium 5.2 H (3.5-5.1) mmol/L Chloride 102 (98-107) mmol/L Carbon Dioxide 21 (21-32) mmol/L Anion Gap 12 H (3-11) BUN 28 H (6-23) mg/dl Creatinine 1.23 H (0.6-1.2) mg/dl Est Cr Clr Drug Dosing 50.7 ml/min Est GFR ( Amer) 47.6 ml/min Est GFR (Non-Af Amer) 41.1 ml/min BUN/Creatinine Ratio 22.8 H (10-20) Glucose 494 H* (70-99(Fasting)) mg/dl POC Glucose (70-99) mg/dl Lactate 3.2 H* (0.4-2.0) mmol/L Calcium 8.8 (8.5-10.1) mg/dl Total Bilirubin 1.0 (0.2-1.0) mg/dl AST 53 H (13-39) U/L ALT 35 (7-52) U/L Alkaline Phosphatase 229 H (34-104) U/L Total Creatine Kinase 212 H (26-192) U/L Total Protein 6.0 (6.0-8.3) gm/dl Albumin 2.4 L (3.4-5.0) gm/dl Globulin 3.6 (2.5-4.0) gm/dl Albumin/Globulin Ratio 0.7 L (0.9-2) Urine Color Urine Appearance (Clear) Urine pH (4.5-7.5) Ur Specific [place] (1.000-1.030) Urine Protein (Negative) Urine Glucose (UA) (Negative) Urine Ketones (Negative) Urine Blood (Negative) Urine Nitrite (Negative) Urine Bilirubin (Negative) Urine Urobilinogen (Negative) Ur Leukocyte Esterase (Negative) Urine RBC (0-4) /hpf Urine WBC (0-5) /hpf Ur Epithelial Cells (0-5) /lpf Urine Bacteria (Negative) SARS-CoV-2, RNA, NAAT (NEGATIVE) 05/09/22 05/09/22 05/09/22 Range/Units 11:57 13:16 13:46 WBC (4.8-10.8) K/ul RBC (3.93-5.22) M/uL Hgb (12.0-16.0) g/dl Hct (34.1-44.9) % MCV (80.0-100.0) fL MCH (25.0-34.0) pg MCHC (32.0-36.0) g/dL RDW Std Deviation (36.4-46.3) fL RDW Coeff of Mikayla (11.5-14.5) % Plt Count (130-400) K/uL MPV (9.4-12.3) fL Immature Gran % (Auto) % Neut % (Auto) % Lymph % (Auto) % [place] % (Auto) % Eos % (Auto) % Baso % (Auto) % Neut # (Auto) (1.4-6.5) K/uL Lymph # (Auto) (1.2-3.4) K/uL [place] # (Auto) (0.24-0.82) K/uL Eos # (Auto) (0-0.50) K/uL Baso # (Auto) (0-0.2) K/uL Immature Gran # (Auto) (0.00-0.02) K/uL Sodium (136-145) mmol/L Potassium (3.5-5.1) mmol/L Chloride (98-107) mmol/L Carbon Dioxide (21-32) mmol/L Anion Gap (3-11) BUN (6-23) mg/dl Creatinine (0.6-1.2) mg/dl Est Cr Clr Drug Dosing ml/min Est GFR ( Amer) ml/min Est GFR (Non-Af Amer) ml/min BUN/Creatinine Ratio (10-20) Glucose (70-99(Fasting)) mg/dl POC Glucose 460 H* (70-99) mg/dl Lactate (0.4-2.0) mmol/L Calcium (8.5-10.1) mg/dl Total Bilirubin (0.2-1.0) mg/dl AST (13-39) U/L ALT (7-52) U/L Alkaline Phosphatase (34-104) U/L Total Creatine Kinase (26-192) U/L Total Protein (6.0-8.3) gm/dl Albumin (3.4-5.0) gm/dl Globulin (2.5-4.0) gm/dl Albumin/Globulin Ratio (0.9-2) Urine Color Yellow Urine Appearance Cloudy A (Clear) Urine pH 5.0 (4.5-7.5) Ur Specific [place] >= 1.030 (1.000-1.030) Urine Protein 2+ H (Negative) Urine Glucose (UA) 3+ H (Negative) Urine Ketones 1+ H (Negative) Urine Blood 2+ H (Negative) Urine Nitrite Positive A (Negative) Urine Bilirubin Negative (Negative) Urine Urobilinogen Negative (Negative) Ur Leukocyte Esterase 1+ H (Negative) Urine RBC 5-10 H (0-4) /hpf Urine WBC >30 H (0-5) /hpf Ur Epithelial Cells 0-5 (0-5) /lpf Urine Bacteria 4+ H (Negative) SARS-CoV-2, RNA, NAAT NEGATIVE (NEGATIVE) Imaging Data Attestation: I personally reviewed and interpreted this imaging study as follows: Radiologist's Impression: Cervical Spine CT 05/09/22 10:35 CT cervical spine wo con CT DOSE: 1437.32 mGy.cm CLINICAL HISTORY: 81 years-old Female with fall head injury. Acute head and neck injury status post fall COMPARISON: 04/16/2022 TECHNIQUE: Multiple axial CT images of the cervical spine were obtained without contrast. A dose lowering technique was utilized adhering to the principles of ALARA. FINDINGS: Demineralized appearance with multilevel degenerative changes of the cervical spine redemonstrated. No acute cervical spine fracture or subluxation identified. Developmental incomplete bony fusion involves the posterior arch of C1. Multilevel neural foraminal narrowing. Small to moderate sized right mastoid effusion. Partially imaged left-sided pacer leads. Layering left pleural effusion. Diffuse body wall edema. The cerv ical soft tissues appear unremarkable. The visualized lung apices appear clear. IMPRESSION: No acute cervical spine fracture or subluxation identified. ACT 112: Negative or not required by law. The above report was generated using voice recognition software. It may contain grammatical, syntax or spelling errors. Electronically signed by: Tiburcio Palacio M.D. 05/09/2022 1:19 PM Chest X-Ray 05/09/22 10:35 XR chest 1V portable HISTORY: 81 years-old Female weakness acute weakness COMPARISON: Chest radiographs April 23, 2022 TECHNIQUE: AP view of the chest FINDINGS: Cardiac silhouette is enlarged. Left subclavian Cydqws-o-Rdbd catheter distal tip in the expected location of the mid SVC. Perivascular congestion. No pneu mothorax. Left greater than right layering pleural effusions with bibasilar opacities are similar to prior. Large hiatal hernia. Cholecystectomy. Degenerative changes of the shoulders and spine. IMPRESSION: 1. Cardiomegaly with pulmonary vascular congestion. 2. Unchanged layering pleural effusions with bibasilar opacities. 3. Large hiatal hernia. ACT 112: Negative or not required by law. The above report was generated using voice recognition software. It may contain grammatical, syntax or spelling errors. Electronically signed by: Tiburcio Palacio M.D. 05/09/2022 11:[address] 05/09/22 10:35 CT head/brain wo con CLINICAL HISTORY: 81 years-old Female with fall head injury. Acute head injury status post fall TECHNIQUE: Multiple axial CT images of the head were obtained without contrast. A dose lowering technique was utilized adhering to the principles of ALARA. COMPARISON: CT cervical spine of same day, head CT 04/16/2022 FINDINGS: No acute intracranial hemorrhage, midline shift, intracranial mass, hydrocephalus, territorial ischemia or abnormal extra-axial collection. Involutional changes with chronic microvascular ischemic disease. The study is motion degraded. A portion cerebral vascular calcifications. Of it was then repeated. The calvarium is intact. Mastoid air cells are clear. Small left maxillary sinus air-fluid level. Developmental incomplete bony fusion involves the posterior arch of C1. Prior bilateral lens repair. Small anterior forehead contusion. IMPRESSION: No acute intracranial abnormality or calvarial fracture identified. ACT 112: Negative or not required by law. The above report was generated using voice recognition software. It may contain grammatical, syntax or spelling errors. Electronically signed by: Tiburcio Palacio M.D. 05/09/2022 12:57 PM ECG Data Attestation: I personally reviewed and interpreted this ECG as follows: Indication: + weakness Rate (beats per minute): 106 Rhythm: + sinus tachycardia ECG ST segments: + Nonspecific ST abnormalities Change: no significant change MDM Narrative Continuous ekg monitor: Order was placed for continuous ekg monitor. Patient was placed on the ekg monitor. Patient was noted to be in sinus tachycardia at an initial rate of 100 bpm. The patient is a 81-year-old female who presents today for evaluation of weakness and a fall. Patient had a recent lengthy hospital stay followed by a rehab facility stay. She has had increasing weakness and 2 falls at home. She laid on the floor for several hours. Her glucose is elevated in the 500s. Lactate is slightly elevated. CPK is elevated. Patient has a mild SETH. Patient has CHF and chronic edema and therefore will be difficult to hydrate due to concerns for fluid overload. CT of the head was negative. Patient does appear to have a UTI which could be contributing to her weakness. She was given a dose of ceftriaxone. [facility] for [facility] care. She verbalized understanding and was discharged home in good condition. Impression & Plan Fall, Weakness, Hyperglycemia Discharge Plan Visit Data Chief Complaint: Fall Stated Complaint: FALL, HEAD INJURY ED Provider: Carlee Llanos ED Midlevel Provider: Sarai Garcia Discharge Problem: Fall, Weakness, Hyperglycemia Patient Disposition: Admitted As Inpatient Discharge Instructions Interventions: ED Discharge Assessment Last Done: 05/09/22 15:49
--- NOTE | 2022-05-09 11:04 | XRay Report ---
XR chest 1V portable HISTORY: 81 years-old Female weakness acute weakness COMPARISON: Chest radiographs April 23, 2022 TECHNIQUE: AP view of the chest FINDINGS: Cardiac silhouette is enlarged. Left subclavian Gxuwso-e-Mrex catheter distal tip in the expected loc ation of the mid SVC. Perivascular congestion. No pneumothorax. Left greater than right layering pleu ral effusions with bibasilar opacities are similar to prior. Large hiatal hernia. Cholecystectomy. De generative changes of the shoulders and spine. IMPRESSION: 1. Cardiomegaly with pulmonary vascular congestion. 2. Unchanged layering pleural effusions with bibasilar opacities. 3. Large hiatal hernia. ACT 112: Negative or not required by law. The above report was generated using voice recognition software. It may contain grammatical, syntax o r spelling errors. Electronically signed by: Tiburcio Palacio M.D. 05/09/2022 11:02 AM
[2022-05-09 12:12] LABS: Basophils # (auto) 0.01 K/uL (0-0.2); Basophils % (auto) 0.1 %; Hematocrit (blood only) 26.7 % (34.1-44.9); Hemoglobin 8.7 g/dl (12.0-16.0); Immature Granulocytes # (auto) 0.04 K/uL (0.00-0.02); Immature Granulocytes % (auto) 0.4 %; Lymphocytes # (auto) 0.75 K/uL (1.2-3.4); Lymphocytes % (auto) 7.3 %; Mean Corpuscular Hemoglobin 27.8 pg (25.0-34.0); Mean Corpuscular Hgb Conc 32.6 g/dL (32.0-36.0); Mean Corpuscular Volume 85.3 fL (80.0-100.0); Mean Platelet Volume 10.3 fL (9.4-12.3); Monocytes # (auto) 0.64 K/uL (0.24-0.82); Monocytes % (auto) 6.2 %; Platelet Count 271 K/uL (130-400); RDW Coefficient of Variation 17.2 % (11.5-14.5); RDW Standard Deviation 53.5 fL (36.4-46.3); Red Blood Count 3.13 M/uL (3.93-5.22); White Blood Count 10.34 K/ul (4.8-10.8)
[2022-05-09 12:39] LABS: Albumin Globulin Ratio 0.7 (0.9-2); Albumin Level 2.4 gm/dl (3.4-5.0); BUN Creatinine Ratio 22.8 (10-20); Calcium 8.8 mg/dl (8.5-10.1); Creatinine Clr Calc Pharmacy 50.7 ml/min; Est GFR (African American) 47.6 ml/min; Est GFR (Non-African American) 41.1 ml/min; Globulin 3.6 gm/dl (2.5-4.0); Potassium 5.2 mmol/L (3.5-5.1)
[2022-05-09] MEDS ORDERED: NovoLIN-R INSULIN PER UNIT CHARGE IV STA (12:54)
--- NOTE | 2022-05-09 12:58 | CT Scan Report ---
CT head/brain wo con CLINICAL HISTORY: 81 years-old Female with fall head injury. Acute head injury status post fall TECHNIQUE: Multiple axial CT images of the head were obtained without contrast. A dose lowering tech nique was utilized adhering to the principles of ALARA. COMPARISON: CT cervical spine of same day, head CT 04/16/2022 FINDINGS: No acute intracranial hemorrhage, midline shift, intracranial mass, hydrocephalus, territorial ischem ia or abnormal extra-axial collection. Involutional changes with chronic microvascular ischemic disea se. The study is motion degraded. A portion cerebral vascular calcifications. Of it was then repeated . The calvarium is intact. Mastoid air cells are clear. Small left maxillary sinus air-fluid level. De velopmental incomplete bony fusion involves the posterior arch of C1. Prior bilateral lens repair. Sm all anterior forehead contusion. IMPRESSION: No acute intracranial abnormality or calvarial fracture identified. ACT 112: Negative or not required by law. The above report was generated using voice recognition software. It may contain grammatical, syntax o r spelling errors. Electronically signed by: Tiburcio Palacio M.D. 05/09/2022 12:57 PM
[2022-05-09] MEDS ORDERED: SODIUM CHLORIDE 0.9% 500 ML IV SCH (13:00)
--- NOTE | 2022-05-09 13:21 | CT Scan Report ---
CT cervical spine wo con CT DOSE: 1437.32 mGy.cm CLINICAL HISTORY: 81 years-old Female with fall head injury. Acute head and neck injury status post fall COMPARISON: 04/16/2022 TECHNIQUE: Multiple axial CT images of the cervical spine were obtained without contrast. A dose low ering technique was utilized adhering to the principles of ALARA. FINDINGS: Demineralized appearance with multilevel degenerative changes of the cervical spine redemon strated. No acute cervical spine fracture or subluxation identified. Developmental incomplete bony fu burak involves the posterior arch of C1. Multilevel neural foraminal narrowing. Small to moderate sized right mastoid effusion. Partially imaged left-sided pacer leads. Layering lef t pleural effusion. Diffuse body wall edema. The cervical soft tissues appear unremarkable. The visu alized lung apices appear clear. IMPRESSION: No acute cervical spine fracture or subluxation identified. ACT 112: Negative or not required by law. The above report was generated using voice recognition software. It may contain grammatical, syntax o r spelling errors. Electronically signed by: Tiburcio Palacio M.D. 05/09/2022 1:19 PM
[2022-05-09 13:48] LABS: Appearance Urine Cloudy (Clear); Bilirubin Urine Negative (Negative); Blood Urine 2+ (Negative); Color Urine Yellow; Glucose Urine UA 3+ (Negative); Ketones Urine 1+ (Negative); Leukocyte Esterase Urine 1+ (Negative); Nitrite Urine Positive (Negative); Protein Urine 2+ (Negative); Specific Gravity Urine >= 1.030 (1.000-1.030); Urobilinogen Urine Negative (Negative)
[2022-05-09 13:58] LABS: Bacteria Urine 4+ (Negative); Epithelial Cell Urine 0-5 /lpf (0-5); WBC Urine >30 /hpf (0-5)
[2022-05-09] MEDS ORDERED: cefTRIAXone SODIUM 2,000 MG/70 ML BAG IV STA (13:59)
--- NOTE | 2022-05-09 14:06 | History & Physical Report ---
Date of Service May 09, 2022 Assessment & Plan (1) UTI (urinary tract infection): Plan: - Patient not complaining of any urinary symptoms but had a fall last night due to weakness, urine does appear infected with nitrates, leukoesterase, WBCs and bacteria as well as ketones, protein, glucose. - Urine culture pending. For now start on Rocephin empirically. Review of previous urine cultures from the past year show she has previously grown pansensitive Klebsiella, and E. coli with resistant to ampicillin and Unasyn. -PT/OT to evaluate and treat patient regarding her weakness, likely related to UTI as well as chronic medical conditions. she completed 3 weeks of rehab at [facility]. She is now living at home with son, home health was coming periodically after d/c from [facility], but that is now done. Placement may be recommended for ongoing care and support. (2) SETH (acute kidney injury): Plan: - Creatinine 1.23, just mildly elevated from baseline which seems to be 0.91.1 prior to her recent hospital stay for acute GI bleed. - Likely secondary to UTI, patient also volume overloaded. CK mildly elevated at 212, likely not a major contributor. - Ordered 500 cc IVF in ED, will stop this, limit further IVF given volume overload seen on CXR. - Avoid nephrotoxins, renally dose medications as able. - BMP in AM. (3) Uncontrolled type 1 diabetes mellitus: Plan: - Fell last night, on floor all night, without insulin. Glucose on arrival 494, received 5 units IV insulin in ED, BSG recheck 460. - Will start on insulin drip. BSG Q1h, monitor electrolytes. - Patient is a type I diabetic, follows with diabetes education team, has an insulin pump which we will remove for now. - Consult pharmacy for glycemic management assistance. (4) Diastolic CHF: Plan: - CXR: Cardiomegaly with pulmonary vascular congestion. Unchanged layering pleu ral effusions with bibasilar opacities. Large hiatal hernia. - Continue Lasix, currently takes 40 mg 3 times a week, last dose Sunday 05/07, will give dose 40 IV today. Depending on response, tomorrow may resume p.o. or can continue IV. - Titrate for net 11.5 L (5) CAD (coronary artery disease), quechan coronary artery: Plan: - Stable, continue medical management. (6) Anemia: Plan: - Hgb 8.7, stable since d/c, no longer on Xarelto (previous RLE DVT in 2019, cancer). - No s/s of acute bleed. Monitor on CBC. (7) Hypothyroidism: Plan: - Continue levothyroxine. (8) Breast cancer: Plan: - Last chemo in , follows w/ CCP. - Further treatment delayed due to hemorrhoid surgery with subsequent 3 week hospitalization due to GI bleed after procedure while on Xarelto. (9) Elevated LFTs: Plan: - LFTs elevated to baseline, continue to monitor. Plan - Admit to medicine with telemetry. - SCDs, heparin for VTE ppx. - Full Code. Did discuss with patient at bedside due to several different code statuses over past year. Confirmed she would want ALL standard ACLS treatment in the event of cardiac arrest or respiratory failure. History of Present Illness Chief Complaint: onoging weaknes x weeks with fall last evening Primary Care Provider: Liz Pedraza MD Colleen Franco is an 81-year-old female with past medical history significant for recent GI bleed, DM 1, CAD, GERD, HFpEF, hypothyroidism, breast cancer, who presents today for evaluation after falling at home last evening. She lives with her son, who found her on the ground laying on her left side this morning. She recalls falling asleep in her lift chair and does not recall falling, thinks she fell in her sleep. She is not complaining of any pain currently but has had nonbloody diarrhea and low abdominal pain for three days. She also notes she has been weak since discharge on 03/22 after prolonged hospital stay for acute GI bleed. She does not report any further bleeding, Xarelto has since been stopped. She did got to [facility] for 3 weeks of rehab after discharge and initially felt good but has since become weak again. On presentation she was initially hypertensive 186/100, tachycardic 100-110, otherwise afebrile and not hypoxic. Labs notable for BSG 494 and lactate 3.2, AG 12. Hgb 8.7, at baseline. K 5.2, no other electrolyte abnormalities. BUN 28, Cr 1.21, baseline ~ 0.9-1.10. AST 53, ALT 35, alk phos 229, all at baseline. CK 212. CXR with cardiomegaly, pulmonary vascular congestion, unchanged layering pleural effusions bibasilar opacities and a large hiatal hernia. Head CT and C-spine CT unremarkable. ED Course: 5 units IV insulin, NS 75cc/hr x 500 cc, Rocephin 2gm. Allergies Allergy/AdvReac Type Severity Reaction Status Date / Time lisinopril AdvReac Intermediate Elevates Verified 04/26/22 10:40 potassium losartan AdvReac Intermediate Elevates Verified 04/26/22 10:40 potassium Home Medications Medication Instructions Recorded Confirmed Type cholecalciferol (vitamin D3) 125 5,000 unit PO QAM 12/25/19 04/26/22 History mcg (5,000 unit) capsule omeprazole 20 mg tablet,delayed 20 mg PO QAM 03/27/20 04/26/22 History release blood-glucose sensor (Definition 6 G6 #3 ea 09/22/20 04/26/22 History Sensor device) blood-glucose transmitter (Dexcom #1 ea 09/22/20 04/26/22 History G6 Transmitter device) subcutaneous insulin pump (MiniMADIKTIVO #1 ea 09/22/20 04/26/22 History 530G Insulin Pump) acetaminophen 325 mg capsule 650 mg PO QID PRN Pain 01/09/21 04/26/22 History (Tylenol) metoprolol succinate 25 mg 25 mg PO QPM 03/17/21 04/26/22 History tablet,extended release 24 hr Lactobacillus 1 cap PO BID 03/26/21 04/26/22 History acidophilus-Bifidobac.animalis 31 billion cell capsule blood sugar diagnostic (Contour #400 ea 04/23/21 04/26/22 Rx Next Test Strips) Greged Walker #1 ea 05/14/21 04/26/22 Rx furosemide 20 mg tablet (Lasix) 40 mg PO 3XWK 09/29/21 04/26/22 History insulin syringe-needle U-100 0.3 #100 ea 10/14/21 04/26/22 Rx mL 29 gauge x 1/2" (BD Insulin Syringe) levothyroxine 125 mcg tablet 125 mcg PO DAILY #90 tabs 02/08/22 04/26/22 Rx magnesium oxide 400 mg PO BID 02/25/22 04/26/22 History insulin aspart U-100 100 unit/mL 0 unit continuous subcutaneous 04/23/22 04/26/22 History subcutaneous solution (Novolog infusion CONTINOUS U-100 Insulin aspart) insulin glargine 100 unit/mL 7 unit subcut DAILY PRN ONLY IF 04/23/22 04/26/22 History subcutaneous solution (Lantus INSULIN PUMP FAILS U-100 Insulin) Past Med/Surg History Medical History Anasarca Secondary to nutritional deficiency and possibly component of diastolic HF per 05/2021 cardio records > diuretics adjusted and GUS wraps for legs recommended Anemia Hgb 9s per chart review Deep vein thrombosis (DVT) of right lower extremity Non-occlusive DVT (right peroneal vein)- 08/2019 while on chemo Reason for Xarelto Diabetes mellitus type 1 + insulin pump Follows with [facility] endocrine/clinical trial educator GERD (gastroesophageal reflux disease) Diet controlled Shane's thyroiditis History of blood transfusion 02/2020 Hx of gastric ulcer HX: breast cancer Rt (2019) > s/p surgery/chemo Mets to lung > targeted txs Hyperlipidemia Hypertension Hypothyroidism Insulin pump in place IPMN (intraductal papillary mucinous neoplasm) 3 seen on EUS (10 mm, 13 mm, 8 mm) with FNA performed showing mucinous cyst and no malignancy Follows with Dr. Lozada (MRI abd rec in one year) Lung cancer Mets from breast ca- currently undergoing- Enhertu targeted tx for lung nodules q3 weeks Mixed conductive and sensorineural hearing loss of right ear with restricted hearing of left ear Multiple pulmonary nodules Under surveillance by CTS Tooth abscess 5 teeth possible abscesses- plan for upcoming extraction Urinary incontinence UTI (urinary tract infection) Current symptoms (no testing done)- rx'd cipro BID (to start 11/10/21) Surgical History History of anesthesia reaction Sister > slow to wake History of breast biopsy Right History of carpal tunnel release R/L History of cataract surgery B/L History of cholecystectomy History of colonoscopy History of ERCP History of esophagogastroduodenoscopy (EGD) Large hiatal hernia, non-bleeding duodenal ulcer (done for iron def anemia evaluation) History of hip surgery Left s/p femur fracture History of tonsillectomy and adenoidectomy History of tooth extraction History of vascular access device APort--left side of chest S/P mastectomy Right breast, with sentinel lymph node biopsy, Dr. Preet Burdick, [facility] S/P mastectomy right S/P thyroid biopsy benign Family History Sister Pancreatic cancer Breast cancer Cancer Father Lung cancer Cancer Brother Diabetes Brother Diabetes Parkinson disease Grandfather (Maternal) Myocardial infarction Other No family history of adverse response to anesthesia No family history of bleeding disorder Denies family history of Ovarian cancer Prostate cancer Heart disease Colorectal cancer Hypertension Stroke Asthma Social History Smoking Status: Never smoker Second Hand Exposure: No; Hx Alcohol Use: No Hx Substance Use: No Preferred Language: [place] Communication Ability: Effective Visual Impairment: No Limitations Hearing Ability: Normal Electroplating Technician Required: No Beliefs That Will Affect Care: None marital status: / Current Living Situation: Family Current Living Situation Comment: SON LIVES WITH HER current occupational status: retired Other Information That Helps Us Care for You: No Feels Safe at Home: Yes Safety Concerns: Feels Safe At This Time caffeine: Yes Dental Care, Regularly: Yes Physical Activity Frequency: Does not Exercise Seatbelt Use: always Sunscreen Use: Yes Assistive Devices: Glasses, Walker and Other Assistive Devices Comment: INSULIN PUMP Review of Systems Review of Systems: Constitutional: general weakness x days/weeks; No fever/chills, fatigue, myalgias, anorexia, night sweats Eyes: No diplopia, no worsening or blurred vision ENT: normal hearing, no trouble swallowing Respiratory: No cough, sputum, dyspnea at rest or on exertion Cardiovascular: No chest pain, tightness or palpitations Abdomen: low abdominal pain, nonbloody diarrhea x 3 days; no nausea, vomiting, constipation, melena, hematochezia : Denies dysuria, hematuria, increased urgency/frequency, urinary retention Musculoskeletal: No joint pain, calf pain, swelling Neurologic: No weakness, numbness/tingling, or balance problems Psychiatric: No anxiety or depression Skin: No rash or itch Physical Exam Physical Exam: General: awake, alert, no apparent distress Head: Normocephalic, atraumatic ENT: PERRL, EOMI, no pharyngeal exudate, mucous membranes moist Chest: crackles at b/l lung bases; otherwise clear to auscultation, on room air, no adventitious breath sounds Cardiac: Regular rate and rhythm, no murmur, no JVD, normal peripheral pulses, good capillary refill Abdominal: NABS x 4 quadrants, soft, nontender to palpation, no rebound, guarding or tenderness Extremities: mild b/l LE edema; otherwise normal inspection, no erythema, calfs nontender to palpation Psych: Normal mood and affect Neuro: AAO x 3, strength intact bilaterally and rated 5/5, no motor deficits, speech is clear, no peripheral sensory deficits Skin: no rash or erythema Results & Data Results & Data ([facility]) Vital Signs (Past 12 Hours) Vital Signs Temp Pulse Pulse Resp BP BP Pulse Ox 05/09/22 11:50 101 H 18 148/83 H 93 05/09/22 09:49 36.6 C 109 H 18 186/100 H 98 O2 Del Method 05/09/22 11:50 Room Air 05/09/22 09:49 Room Air Laboratory Results Abnormal lab results 05/09/22 05/09/22 05/09/22 Range/Units 11:50 11:50 11:50 RBC 3.13 L (3.93-5.22) M/uL Hgb 8.7 L (12.0-16.0) g/dl Hct 26.7 L (34.1-44.9) % RDW Std Deviation 53.5 H (36.4-46.3) fL RDW Coeff of Mikayla 17.2 H (11.5-14.5) % Neut # (Auto) 8.90 H (1.4-6.5) K/uL Lymph # (Auto) 0.75 L (1.2-3.4) K/uL Immature Gran # (Auto) 0.04 H (0.00-0.02) K/uL Sodium 135 L (136-145) mmol/L Potassium 5.2 H (3.5-5.1) mmol/L Anion Gap 12 H (3-11) BUN 28 H (6-23) mg/dl Creatinine 1.23 H (0.6-1.2) mg/dl BUN/Creatinine Ratio 22.8 H (10-20) Glucose 494 H* (70-99(Fasting)) mg/dl POC Glucose (70-99) mg/dl Lactate 3.2 H* (0.4-2.0) mmol/L AST 53 H (13-39) U/L Alkaline Phosphatase 229 H (34-104) U/L Total Creatine Kinase 212 H (26-192) U/L Albumin 2.4 L (3.4-5.0) gm/dl Albumin/Globulin Ratio 0.7 L (0.9-2) Urine Appearance (Clear) Urine Protein (Negative) Urine Glucose (UA) (Negative) Urine Ketones (Negative) Urine Blood (Negative) Urine Nitrite (Negative) Ur Leukocyte Esterase (Negative) Urine RBC (0-4) /hpf Urine WBC (0-5) /hpf Urine Bacteria (Negative) 05/09/22 05/09/22 05/09/22 Range/Units 13:16 13:46 14:23 RBC (3.93-5.22) M/uL Hgb (12.0-16.0) g/dl Hct (34.1-44.9) % RDW Std Deviation (36.4-46.3) fL RDW Coeff of Mikayla (11.5-14.5) % Neut # (Auto) (1.4-6.5) K/uL Lymph # (Auto) (1.2-3.4) K/uL Immature Gran # (Auto) (0.00-0.02) K/uL Sodium (136-145) mmol/L Potassium (3.5-5.1) mmol/L Anion Gap (3-11) BUN (6-23) mg/dl Creatinine (0.6-1.2) mg/dl BUN/Creatinine Ratio (10-20) Glucose (70-99(Fasting)) mg/dl POC Glucose 460 H* (70-99) mg/dl Lactate 2.3 H* (0.4-2.0) mmol/L AST (13-39) U/L Alkaline Phosphatase (34-104) U/L Total Creatine Kinase (26-192) U/L Albumin (3.4-5.0) gm/dl Albumin/Globulin Ratio (0.9-2) Urine Appearance Cloudy A (Clear) Urine Protein 2+ H (Negative) Urine Glucose (UA) 3+ H (Negative) Urine Ketones 1+ H (Negative) Urine Blood 2+ H (Negative) Urine Nitrite Positive A (Negative) Ur Leukocyte Esterase 1+ H (Negative) Urine RBC 5-10 H (0-4) /hpf Urine WBC >30 H (0-5) /hpf Urine Bacteria 4+ H (Negative) Diagnostic Findings Cervical Spine CT 05/09/22 10:35 CT cervical spine wo con CT DOSE: 1437.32 mGy.cm CLINICAL HISTORY: 81 years-old Female with fall head injury. Acute head and neck injury status post fall COMPARISON: 04/16/2022 TECHNIQUE: Multiple axial CT images of the cervical spine were obtained without contrast. A dose lowering technique was utilized adhering to the principles of ALARA. FINDINGS: Demineralized appearance with multilevel degenerative changes of the cervical spine redemonstrated. No acute cervical spine fracture or subluxation identified. Developmental incomplete bony fusion involves the posterior arch of C1. Multilevel neural foraminal narrowing. Small to moderate sized right mastoid effusion. Partially imaged left-sided pacer leads. Layering left pleural effusion. Diffuse body wall edema. The cervical soft tissues appear unremarkable. The visualized lung apices appear clear. IMPRESSION: No acute cervical spine fracture or subluxation identified. ACT 112: Negative or not required by law. The above report was generated using voice recognition software. It may contain grammatical, syntax or spelling errors. Electronically signed by: Tiburcio Palacio M.D. 05/09/2022 1:19 PM Chest X-Ray 05/09/22 10:35 XR chest 1V portable HISTORY: 81 years-old Female weakness acute weakness COMPARISON: Chest radiographs April 23, 2022 TECHNIQUE: AP view of the chest FINDINGS: Cardiac silhouette is enlarged. Left subclavian Qioyvj-k-Wcoy catheter distal tip in the expected location of the mid SVC. Perivascular congestion. No pneumothorax. Left greater than right layering pleural effusions with bibasilar opacities are similar to prior. Large hiatal hernia. Cholecystectomy. Degenerative changes of the shoulders and spine. IMPRESSION: 1. Cardiomegaly with pulmonary vascular congestion. 2. Unchanged layering pleural effusions with bibasilar opacities. 3. Large hiatal hernia. ACT 112: Negative or not required by law. The above report was generated using voice recognition software. It may contain grammatical, syntax or spelling errors. Electronically signed by: Tiburcio Palacio M.D. 05/09/2022 11:[address] 05/09/22 10:35 CT head/brain wo con CLINICAL HISTORY: 81 years-old Female with fall head injury. Acute head injury status post fall TECHNIQUE: Multiple axial CT images of the head were obtained without contrast. A dose lowering technique was utilized adhering to the principles of ALARA. COMPARISON: CT cervical spine of same day, head CT 04/16/2022 FINDINGS: No acute intracranial hemorrhage, midline shift, intracranial mass, hydrocephalus, territorial ischemia or abnormal extra-axial collection. Involutional changes with chronic microvascular ischemic disease. The study is motion degraded. A portion cerebral vascular calcifications. Of it was then repeated. The calvarium is intact. Mastoid air cells are clear. Small left maxillary sinus air-fluid level. Developmental incomplete bony fusion involves the posterior arch of C1. Prior bilateral lens repair. Small anterior forehead contusion. IMPRESSION: No acute intracranial abnormality or calvarial fracture identified. ACT 112: Negative or not required by law. The above report was generated using voice recognition software. It may contain grammatical, syntax or spelling errors. Electronically signed by: Tiburcio Palacio M.D. 05/09/2022 12:57 PM ECG Additional Comments: Sinus tachycardia Low voltage QRS Cannot rule out Anterior infarct (cited on or before 09-MAY-2022) Abnormal ECG When compared with ECG of 23-APR-2022 14:07, Vent. rate has increased BY 36 BPM Questionable change in initial forces of Anterior leads Nonspecific T wave abnormality no longer evident in Anterior leads Nonspecific T wave abnormality, worse in Lateral leads. Code Status & VTE Plan Code Status Full Code Supervising Physician Co-Signing Physician Notes Patient seen and examined, chart reviewed, case discussed with Shyanne Felton PA-C and I agree with the assessment and plan as above except as otherwise noted Labs and images reviewed Colleen Pierre is an 81-year-old female with past medical history of type 1 diabetes, heart failure with preserved ejection fraction, breast cancer, GERD who presents with DKA in the setting of a UTI. Has been using her insulin pump without any recent changes or known malfunction. Has had abdominal pain for 3 days and global fatigue. At bedside she has dependent edema in the legs and left arm, symmetrical chest rise, heart rate is regular but tachycardic, and she is normotensive. Mucous membranes are tacky. Mild abdominal pain. Presenting glucose is 494 which decreased to 444 with lactate of 2.3 after fluids, patient is placed on insulin drip. Appears clinically volume overloaded with only a mild gap of 12. We will continue gtt. until gap closes, glucose improved with cautious fluids and potassium repletion as needed. VBG/BMP every 4 hours. Agree with management above. PG Care Time/CCT Total # of Minutes Spent Total Time Spent with Patient: Total time spent is greater than 50% in coordination of care (as documented) at patient's floor/unit and/or counseling patient: Coding Level of Care Code 21197 INT INP/OBS CARE 2MIN Diagnoses UTI (urinary tract infection) N39.0 SETH (acute kidney injury) N17.9 Uncontrolled type 1 diabetes mellitus E10.65 Diastolic CHF I50.30 CAD (coronary artery disease), quechan coronary artery I25.10 Anemia D64.9 Hypothyroidism E03.9 Breast cancer C50.919 Elevated LFTs R79.89
[2022-05-09] MEDS ORDERED: INSULIN PROTOCOL GOAL RANGE ONE (14:19)
[2022-05-09] MEDS ORDERED: PHARMACY GLYCEMIC MGMT CONSULT PRN (14:19)
[2022-05-09] MEDS ORDERED: MODERATE STRESS LEVEL ONE (14:19)
[2022-05-09] MEDS ORDERED: STAT IV STA (14:19)
[2022-05-09] MEDS ORDERED: INSULIN REGULAR 250 UNITS in SODIUM CHLORIDE 0.9% 247.5 ML IV SCH ×2 (14:45→16:00)
[2022-05-09] MEDS ORDERED: GLUCOSE 10 TAB/TUBE PO PRN (15:00)
[2022-05-09] MEDS ORDERED: GLUCAGON FOR INJ 1 MG VIAL IM PRN (15:00)
[2022-05-09] MEDS ORDERED: GLUCOSE 40% GEL 15 GM TUBE PO PRN (15:00)
[2022-05-09] MEDS ORDERED: FUROSEMIDE 40 MG/4 ML VIAL IV ONE (15:05)
[2022-05-09] MEDS ORDERED: ONDANSETRON INJ 2 MG/ML 2 ML VIAL IV PRN (15:46)
[2022-05-09] MEDS ORDERED: POLYETHYLENE (MIRALAX) 17 GM PACK PO PRN (15:46)
[2022-05-09] MEDS ORDERED: ACETAMINOPHEN 325 MG TAB PO PRN (16:14)
[2022-05-09] MEDS: HEPARIN SOD 5,000 UNIT/0.5 ML VIAL SQ SCH (20:47)
[2022-05-09] MEDS: MAGNESIUM OXIDE 400 MG TAB PO SCH (20:48)
[2022-05-09] MEDS: METOPROLOL SUCC 25MG EXT REL TAB PO SCH (20:49)
[2022-05-10 04:18] LABS: Basophils # (auto) 0.02 K/uL (0-0.2); Basophils % (auto) 0.2 %; Eosinophils # (auto) 0.08 K/uL (0-0.50); Eosinophils % (auto) 0.7 %; Hematocrit (blood only) 24.9 % (34.1-44.9); Hemoglobin 8.2 g/dl (12.0-16.0); Immature Granulocytes # (auto) 0.04 K/uL (0.00-0.02); Immature Granulocytes % (auto) 0.3 %; Lymphocytes # (auto) 2.95 K/uL (1.2-3.4); Lymphocytes % (auto) 24.6 %; Mean Corpuscular Hemoglobin 27.9 pg (25.0-34.0); Mean Corpuscular Hgb Conc 32.9 g/dL (32.0-36.0); Mean Corpuscular Volume 84.7 fL (80.0-100.0); Mean Platelet Volume 10.3 fL (9.4-12.3); Monocytes # (auto) 1.13 K/uL (0.24-0.82); Monocytes % (auto) 9.4 %; Neutrophils # (auto) 7.79 K/uL (1.4-6.5); Neutrophils % (auto) 64.8 %; Platelet Count 249 K/uL (130-400); RDW Coefficient of Variation 17.4 % (11.5-14.5); Red Blood Count 2.94 M/uL (3.93-5.22); White Blood Count 12.01 K/ul (4.8-10.8)
[2022-05-10] MEDS: DEXTROSE 50% 50 ML SYRINGE IV PRN ×4 (04:18→08:15)
[2022-05-10 04:48] LABS: Albumin Globulin Ratio 0.7 (0.9-2); Albumin Level 2.2 gm/dl (3.4-5.0); BUN Creatinine Ratio 25.4 (10-20); Bilirubin,Total 0.4 mg/dl (0.2-1.0); Calcium 8.5 mg/dl (8.5-10.1); Creatinine Clr Calc Pharmacy 35.8 ml/min; Est GFR (African American) 48.1 ml/min; Est GFR (Non-African American) 41.5 ml/min; Globulin 3.2 gm/dl (2.5-4.0); Potassium 3.9 mmol/L (3.5-5.1); Total Protein 5.4 gm/dl (6.0-8.3)
[2022-05-10] MEDS: LEVOTHYROXINE SODIUM 125 MCG TABLET PO SCH (06:05)
--- NOTE | 2022-05-10 07:37 | Hospitalist Progress Note ---
Date of Service May 10, 2022 Assessment & Plan (1) UTI (urinary tract infection): (2) SETH (acute kidney injury): (3) Uncontrolled type 1 diabetes mellitus: (4) Diastolic CHF: (5) CAD (coronary artery disease), [place] coronary artery: (6) Anemia: (7) Hypothyroidism: (8) Breast cancer: (9) Elevated LFTs: Plan Colleen Franco is an 81-year-old female with past medical history significant for recent GI bleed, DM 1, CAD, GERD, HFpEF, hypothyroidism, breast cancer, and anasarca who is admitted 2/2 a fall and found to have a UTI, SETH, and fluid overload a/w diastolic CHF. Diastolic CHF: - CXR: Cardiomegaly with pulmonary vascular congestion. Unchanged layering pleural effusions with bibasilar opacities. Large hiatal hernia. - Currently receiving Lasix 40 mg, 3x per week, received 40 mg IV dose 05/09 - Will continue Lasix d/t evidence of fluid overload on exam, suspect cardiac wheezing in addition to JVD and pitting LE edema --- Follow I&O closely, especially output --- Patient dyspneic w/ activity but no new O2 requirement, continue to follow UTI - Patient not complaining of any urinary symptoms but had a fall 05/07 (overnight), no recollection of event - Urinalysis positive, receiving Ceftriaxone q24h, culture showing gram negative bacilli - PT/OT following, possible requirement for rehabilitation pending clinical progression inpatient, significant change from baseline noted - Patient lives at home with son --- Afebrile, leukocytosis to 12.01, electrolytes stable --- Patient experiencing urinary retention, recommending attempt at Purewick and bladder scanning, if retention continues okay to place Muñoz SETH (acute kidney injury): - Creatinine 1.23, just mildly elevated from baseline 0.91.1 - Likely secondary to UTI vs Urinary retention, consideration for a/w with volume overload as well (Lasix given 05/10) - Given 500 cc IVF in ED, discontinued, limit further IVF given volume overload seen on CXR and evidenced on examination - Avoid nephrotoxins, renally dose medications as able. - Follow Cr/GFR and volume status Type 1 DM - Fell last night, on floor all night, without insulin. Glucose on arrival 494, received 5 units IV insulin in ED, BSG recheck 460. - Glycemic consultation placed, pharmacy following - Advance diet today as tolerated - Patient has insulin pump for use outpatient that calculates her dosing, believ es elevation was due to lack of insulin during fall and presentation to ED --- Continue to follow CAD (coronary artery disease) - Stable, continue medical management. Anemia: - Hgb 8.7 on presentation, stable since d/c, no longer on Xarelto (previous RLE DVT in 2019, cancer). - No s/s of acute bleed. - Monitor on CBC. --- Currently 8.2, possible a/w fluid overload, no active bleeding, following Hypothyroidism: - Continue levothyroxine. Breast cancer: - Last chemo in January, follows w/ CCP (Dr. Lane), plan is to restart treatment directly - Chemo was delayed d/t hemorrhoid surgery w/ subsequent hospitalization for GIB while on Xarelto Elevated AST - Patient at baseline Plan - Dispo: Med/Tele - DVT Ppx: SCDs, Heparin - Code Status: Full - IVF: None, diuresis - Diet: DM1 Admission and Anticipated Discharge Date Admission Date: May 09, 2022 Supervising Physician Co-Signing Physician Notes Patient seen and examined, chart reviewed, case discussed with Dr. Ignacio Hager and Dr. Gaby Duran. I agree with the assessment and plan. Shama Macias was resting comfortably in her room upon arrival this morning. She was pleasant and states that she feels well. She denies any chest pain, dyspnea, headache, abdominal pain or bowel/bladder discomfort. She notes that she does not recall the episode surrounding her fall, but that her son (whom she lives with) found her after she had slid out of her lift chair yesterday morning. She does not recall having any symptoms prior to this. She notes that she has ongoing breast cancer and follows with Dr. Kee. She has not had any active treatment since January d/t recent surgeries (tooth extractions/hemorrhoidectomy). She notes that she is not currently having any pain. Review of Systems Review of Systems: As per above. Physical Exam Physical Exam: General: Pleasant female, resting comfortably HEENT: NCAT, PERRL, no scleral icterus Resp: Faint crackles bilaterally worse at bases, audible course upper airway sounds, no increased respiratory effort Cardiac: RRR, normal S1/S2, no MRG, evidence of JVD Abdominal: Active bowel sounds, no TTP, no appreciable abdominal distension or fluid wave Extremities: 2+ b/l LE pitting edema, pain at left hip/full ROM Neuro: AAO x 3, no focal defects, speech clear Skin: Bruising to left side of face, erythema surrounding sacrum Results & Data Results & [facility]) Vital Signs (Past 12 Hours) Vital Signs Temp Pulse Pulse Pulse Resp BP BP 05/10/22 07:28 36.3 C L 88 17 128/65 05/10/22 04:22 36.3 C L 86 20 119/69 05/10/22 00:44 90 05/09/22 23:25 36.4 C L 85 20 128/72 05/09/22 20:00 05/09/22 20:28 36.4 C L 97 H 20 136/73 Pulse Ox O2 Del Method 05/10/22 07:28 90 Room Air 05/10/22 04:22 93 Room Air 05/10/22 00:44 05/09/22 23:25 94 Room Air 05/09/22 20:00 Room Air 05/09/22 20:28 95 Room Air Resident Activity Tracking Resident Involvement: Resident Care Provided Care Provided: Adult Hospital Medicine
[2022-05-10] MEDS: CARBOHYDRATES FOR HYPOGLYCEMIA PO PRN (08:00)
[2022-05-10] MEDS: MAGNESIUM OXIDE 400 MG TAB PO SCH ×2 (08:50→20:12)
[2022-05-10] MEDS: CHOLECALCIFEROL 5,000 UNITS 125 MCG TAB PO SCH (08:51)
[2022-05-10] MEDS: PANTOprazole 40 MG TAB PO SCH (08:51)
[2022-05-10] MEDS: ADVANCED PROBIOTIC 1250 MG CAPSULE PO SCH (08:51)
[2022-05-10] MEDS: HEPARIN SOD 5,000 UNIT/0.5 ML VIAL SQ SCH ×2 (08:52→20:11)
--- NOTE | 2022-05-10 09:36 | Pharmacy Report ---
Pharmacy Glycemic Short Note 2 - Date of Service May 10, 2022 - Glycemic Short BSG Results (Last 24 hours): 05/09/22 05/09/22 05/09/22 11:50 13:46 15:43 Glucose 494 H* POC Glucose 460 H* 470 H* 05/09/22 05/09/22 05/09/22 16:57 18:04 19:12 Glucose POC Glucose 444 H* 474 H* 414 H* 05/09/22 05/09/22 05/09/22 20:08 21:07 22:04 Glucose POC Glucose 346 H* 313 H* 345 H* 05/09/22 05/10/22 05/10/22 23:05 00:05 00:58 Glucose POC Glucose 290 H 240 H 207 H 05/10/22 05/10/22 05/10/22 02:04 02:58 03:55 Glucose 72 POC Glucose 145 H 114 H 05/10/22 05/10/22 05/10/22 04:07 04:09 04:35 Glucose POC Glucose 69 L* 68 L* 76 05/10/22 05/10/22 05/10/22 04:53 05:16 07:58 Glucose POC Glucose 84 104 H 48 L* 05/10/22 05/10/22 05/10/22 08:00 08:15 08:28 Glucose POC Glucose 54 L* 59 L* 120 H OUTPATIENT ANTIDIABETIC REGIMEN: * Insulin pump (Medtronic 530 G) * Basal rates: 7805-7959 - 0.45 units/hr, 8122-5452 - 0.55 units/hr, 0800- 0000 - 0.5 units/hr (12 units/day) * Bolus insulin to carb ratio (gm/unit) - 15 * Correction factor (unit/mg/dL) - 5 HbA1c: 8.7% (02/26/22) ASSESSMENT: * LR is an 81 year old female with T1DM who follows with [facility] end[facility]inology and is well known to pharmacy glycemic service * Presented to [facility] ED last evening for evaluation after a fall at home * Patient last admitted late last year, discharged to [facility] for short- term rehab on 03/22/22. Patient reports increased weakness since that time. * BSG of 494 mg/dL upon presentation, insulin infusion initiated at that time * BSGs trended down overnight, but unfortunately patient experienced symptomatic hypoglycemia multiple times this morning (shakiness) requiring D5W IV * Discontinued insulin infusion this morning and will utilize SC basal/bolus * Patient is now ordered diet, but insufficient carbs consumed at lunch to require insulin * Will be conservative with basal insulin today, but will order some in light of T1DM (5 units has worked at times historically) PLAN FOR INPATIENT GLYCEMIC CONTROL: * Basal insulin * Lantus 5 units SC x 1 with dinner * Reassess in AM * Bolus insulin * NovoLog per scale ACHS or Q6hrs while NPO * Goal Range: Low 120 mg/dL - High 150 mg/dL * Correction Factor: 45 mg/dL/unit * Nutritional / Prandial insulin per carb ratio of 1 unit per 15 grams CHO consumed * 00,04 checks with same parameters this evening in case ordered basal dose is insufficient
--- NOTE | 2022-05-10 09:54 | Electrocardiogram Report ---
Test Reason : Blood Pressure : / mmHG Vent. Rate : 106 BPM Atrial Rate : 106 BPM P-R Int : 166 ms QRS Dur : 068 ms QT Int : 318 ms P-R-T Axes : 050 034 078 degrees QTc Int : 422 ms Sinus tachycardia Low voltage QRS Cannot rule out Anterior infarct (cited on or before 09-MAY-2022) Abnormal ECG When compared with ECG of 23-APR-2022 14:07, Vent. rate has increased BY 36 BPM Nonspecific T wave abnormality no longer evident in Anterior leads Nonspecific T wave abnormality, worse in Lateral leads Confirmed by Meño Boss ([id number]) on 05/10/2022 9:53:58 AM Referred By: REFERRED SELF Confirmed By:Anders Boss
[2022-05-10] MEDS ORDERED: INSULIN ASPART PER UNIT SC SCH (12:00)
[2022-05-10] MEDS: cefTRIAXone SODIUM 2,000 MG in DEXTROSE 5% 50 ML IV SCH (14:43)
[2022-05-10] MEDS ORDERED: LANTUS PER UNIT CHARGE SQ ONE (16:30)
[2022-05-10] MEDS ORDERED: FUROSEMIDE 40 MG/4 ML VIAL IV ONE (17:13)
--- NOTE | 2022-05-10 17:48 | XRay Report ---
XR hip 1V LT w pelvis, XR sacrum coccyx min 2V HISTORY: 81 years-old Female fall/hip pain acute pain of the pelvis, left hip, sacrum and coccyx COMPARISON: CT abdomen and pelvis 03/18/2022, pelvis and hip radiographs April 21, 2021. TECHNIQUE: AP view the pelvis with 2 views of the left hip and 2 views of the sacrum and coccyx. FINDINGS: PELVIS/LEFT HIP: Demineralized appearance of the bones. Mild osteoarthritis of the hips. Unchanged appearance of the c hronic left femoral neck fracture with intact cannulated fixation screws. Again, there may be incompl ete bony healing at the fracture site. No acute fracture, dislocation or avascular necrosis identifie d. Arterial calcifications. SACRUM/COCCYX: Chronic dorsal subluxation of the inferior coccyx. No acute fracture, subluxation or suspicious bone lesion identified. Degenerative changes of the lumbar spine. IMPRESSION: 1. No acute fracture or subluxation identified. 2. Chronic fixated fracture of the left femoral neck with probable incomplete bony healing. ACT 112: Negative or not required by law. The above report was generated using voice recognition software. It may contain grammatical, syntax o r spelling errors. Electronically signed by: Tiburcio Palacio M.D. 05/10/2022 5:46 PM
[2022-05-10] MEDS: INSULIN ASPART PER UNIT SC SCH ×2 (18:04→21:49)
[2022-05-10] MEDS: METOPROLOL SUCC 25MG EXT REL TAB PO SCH (20:12)
[2022-05-11] MEDS: INSULIN ASPART PER UNIT SC SCH ×6 (00:33→20:24)
[2022-05-11 06:24] LABS: Albumin Level 2.2 gm/dl (3.4-5.0); Bilirubin,Total 0.5 mg/dl (0.2-1.0); Calcium 8.9 mg/dl (8.5-10.1); Hematocrit (blood only) 27.3 % (34.1-44.9); Mean Corpuscular Hemoglobin 27.7 pg (25.0-34.0); Mean Platelet Volume 9.7 fL (9.4-12.3); Platelet Count 270 K/uL (130-400); Potassium 4.3 mmol/L (3.5-5.1); RDW Coefficient of Variation 17.7 % (11.5-14.5); RDW Standard Deviation 53.7 fL (36.4-46.3); Red Blood Count 3.25 M/uL (3.93-5.22); White Blood Count 9.28 K/ul (4.8-10.8)
[2022-05-11 06:31] LABS: Albumin Globulin Ratio 0.7 (0.9-2); BUN Creatinine Ratio 25.4 (10-20); Creatinine Clr Calc Pharmacy 37.2 ml/min; Est GFR (African American) 50.1 ml/min; Est GFR (Non-African American) 43.2 ml/min; Globulin 3.3 gm/dl (2.5-4.0); Total Protein 5.5 gm/dl (6.0-8.3)
[2022-05-11] MEDS: LEVOTHYROXINE SODIUM 125 MCG TABLET PO SCH (06:45)
--- NOTE | 2022-05-11 07:28 | Hospitalist Progress Note ---
Date of Service May 11, 2022 Assessment & Plan (1) UTI (urinary tract infection): (2) SETH (acute kidney injury): (3) Uncontrolled type 1 diabetes mellitus: (4) Diastolic CHF: (5) CAD (coronary artery disease), [place] coronary artery: (6) Anemia: (7) Hypothyroidism: (8) Breast cancer: (9) Elevated LFTs: Plan Colleen Franco is an 81-year-old female with past medical history significant for recent GI bleed, DM 1, CAD, GERD, HFpEF, hypothyroidism, breast cancer, and anasarca who is admitted 2/2 a fall and found to have a UTI, SETH, and fluid overload a/w diastolic CHF. Diastolic CHF: - CXR: Cardiomegaly with pulmonary vascular congestion. Unchanged layering pleural effusions with bibasilar opacities. Large hiatal hernia. - Currently receiving Lasix 40 mg, 3x per week, received 40 mg IV dose 05/09 - Will continue Lasix d/t evidence of fluid overload on exam, suspect cardiac wheezing in addition to JVD and pitting LE edema - Follow I&O closely, especially output - Patient dyspneic w/ activity but no new O2 requirement, continue to follow --- Start Lasix 20 mg IV daily, patient remains dyspneic w/ activity and fluid overloaded on exam UTI - Patient not complaining of any urinary symptoms but had a fall 05/07 (overnight), no recollection of event - Urinalysis positive, receiving Ceftriaxone q24h, culture showing gram negative bacilli - PT/OT following, possible requirement for rehabilitation pending clinical progression inpatient, significant change from baseline noted - Patient lives at home with son Patient experiencing urinary retention, recommending attempt at Purewick and bladder scanning, if retention continues okay to place Muñoz --- Afebrile, asymptomatic, leukocytosis resolved, repleting Mg --- Culture positive for delvalle-sensitive Klebsiella, continue Ceftriaxone IV while pending speech eval, goal of 5 days tx SETH (acute kidney injury): - Creatinine 1.23, just mildly elevated from baseline 0.91.1 - Likely secondary to UTI vs Urinary retention, consideration for a/w with volume overload as well (Lasix given 05/10) - Given 500 cc IVF in ED, discontinued, limit further IVF given volume overload seen on CXR and evidenced on examination - Avoid nephrotoxins, renally dose medications as able. - Follow Cr/GFR and volume status --- Resolved to Cr 1.18, GFR 43.2 Type 1 DM - Fell last night, on floor all night, without insulin. Glucose on arrival 494, received 5 units IV insulin in ED, BSG recheck 460. - Glycemic consultation placed, pharmacy following - Advance diet today as tolerated - Patient has insulin pump for use outpatient that calculates her dosing, believes elevation was due to lack of insulin during fall and presentation to ED --- Continue to follow CAD (coronary artery disease) - Stable, continue medical management. Anemia: - Hgb 8.7 on presentation, stable since d/c, no longer on Xarelto (previous RLE DVT in 2019, cancer). - No s/s of acute bleed. - Monitor on CBC. --- Currently 9.0, possible a/w fluid overload, no active bleeding, following Hypothyroidism: - Continue levothyroxine. Breast cancer: - Last chemo in January, follows w/ CCP (Dr. Lane), plan is to restart treatment directly - Chemo was delayed d/t hemorrhoid surgery w/ subsequent hospitalization for GIB while on Xarelto Elevated AST - Patient at baseline Plan - Dispo: Med/Tele - DVT Ppx: SCDs, Heparin - Code Status: Full - IVF: None, diuresis - Diet: DM1 - CM: Anticipated discharge to [facility], CM following Admission and Anticipated Discharge Date Admission Date: May 09, 2022 Supervising Physician Co-Signing Physician Notes Patient seen and examined, chart reviewed, case discussed with Dr. Ignacio Hager and Dr. Gaby Duran. I agree with the assessment and plan. Subjective 05/11: Colleen was resting comfortably in bed upon arrival this morning. She was pleasant and states that she feels well. She denies any chest pain, dyspnea, headache, abdominal pain or bowel/bladder discomfort. She notes some left arm swelling today, but states this has happened to her in the past and it does not hurt, she believes it is because of a bandage being tight on her arm yesterday. Review of Systems Review of Systems: As per above. Physical Exam Physical Exam: General: Pleasant female, resting comfortably HEENT: NCAT, PERRL, no scleral icterus Resp: Faint crackles bilaterally worse at bases, audible course upper airway sounds, no increased respiratory effort Cardiac: RRR, normal S1/S2, no MRG, evidence of JVD (improved) Abdominal: Active bowel sounds, no TTP, no appreciable abdominal distension or fluid wave Extremities: 1+ b/l LE pitting edema, pain at left hip/full ROM Neuro: AAO x 3, no focal defects, speech clear Skin: Bruising to left side of face, erythema surrounding sacrum Results & Data Results & Data ([facility]) Vital Signs (Past 12 Hours) Vital Signs Temp Pulse Resp BP Pulse Ox O2 Del Method 05/11/22 03:29 36.3 C L 79 20 161/66 H 93 Room Air 05/10/22 23:48 36.3 C L 93 H 20 162/84 H 92 Room Air 05/10/22 20:00 Room Air 05/10/22 19:43 36.4 C L 92 H 20 156/84 H 94 Room Air Resident Activity Tracking Resident Involvement: Resident Care Provided Care Provided: Adult Hospital Medicine
[2022-05-11] MEDS: ADVANCED PROBIOTIC 1250 MG CAPSULE PO SCH (08:22)
[2022-05-11] MEDS: HEPARIN SOD 5,000 UNIT/0.5 ML VIAL SQ SCH ×2 (08:22→20:20)
[2022-05-11] MEDS: PANTOprazole 40 MG TAB PO SCH (08:22)
[2022-05-11] MEDS: CHOLECALCIFEROL 5,000 UNITS 125 MCG TAB PO SCH (08:22)
[2022-05-11] MEDS: MAGNESIUM OXIDE 400 MG TAB PO SCH ×2 (08:22→20:20)
[2022-05-11] MEDS: MAGNESIUM SULFATE / D5W 1 GM/100 ML BAG IV SCH ×4 (08:28→14:09)
[2022-05-11 09:43] LABS: Estimated Average Glucose 157 mg/dl; Hemoglobin A1C 7.1 % (4.5-5.6)
[2022-05-11] MEDS: FUROSEMIDE INJ 20 MG/2 ML VIAL IV SCH (10:11)
--- NOTE | 2022-05-11 13:14 | Pharmacy Report ---
Pharmacy Glycemic Short Note 2 - Date of Service May 11, 2022 - Glycemic Short BSG Results (Last 24 hours): 05/10/22 05/10/22 05/11/22 16:20 20:28 00:04 Glucose POC Glucose 195 H 243 H 214 H 05/11/22 05/11/22 05/11/22 04:39 05:44 08:10 Glucose 128 H POC Glucose 157 H 93 05/11/22 12:06 Glucose POC Glucose 120 H OUTPATIENT ANTIDIABETIC REGIMEN: * Insulin pump (Medtronic 530 G) * Basal rates: 4351-7611 - 0.45 units/hr, 0574-6600 - 0.55 units/hr, 0800- 0000 - 0.5 units/hr (12 units/day) * Bolus insulin to carb ratio (gm/unit) - 15 * Correction factor (unit/mg/dL) - 5 HbA1c: 8.7% (02/26/22) ASSESSMENT: 05/11: * BSGs [phone]/dL the last 24. Patient received 5 units of SQ basal yesterday after the drip was turned off, and 6 units of bolus. * Ordered a diet, however minimal carb intake. Started on IV Rocephin. Patient does have her home pump supplies, however does not appear to know how to operate it. Will continue SQ for today. * No change to basal or bolus insulin today. 05/10 * LR is an 81 year old female with T1DM who follows with [facility] and is well known to pharmacy glycemic service * Presented to [facility] ED last evening for evaluation after a fall at home * Patient last admitted late last year, discharged to [facility] for short- term rehab on 03/22/22. Patient reports increased weakness since that time. * BSG of 494 mg/dL upon presentation, insulin infusion initiated at that time * BSGs trended down overnight, but unfortunately patient experienced symptomatic hypoglycemia multiple times this morning (shakiness) requiring D5W IV * Discontinued insulin infusion this morning and will utilize SC basal/bolus * Patient is now ordered diet, but insufficient carbs consumed at lunch to require insulin * Will be conservative with basal insulin today, but will order some in light of T1DM (5 units has worked at times historically) PLAN FOR INPATIENT GLYCEMIC CONTROL: * Basal insulin * Lantus 5 units SC x 1 with dinner * Reassess in AM * Bolus insulin * NovoLog per scale ACHS or Q6hrs while NPO * Goal Range: Low 120 mg/dL - High 150 mg/dL * Correction Factor: 45 mg/dL/unit * Nutritional / Prandial insulin per carb ratio of 1 unit per 15 grams CHO consumed * 00,04 checks with same parameters this evening in case ordered basal dose is insufficient
[2022-05-11] MEDS: cefTRIAXone SODIUM 2,000 MG in DEXTROSE 5% 50 ML IV SCH (16:13)
[2022-05-11] MEDS: HEPARIN 100 UNIT/ML 5ML FLUSH FLUSH PRN (16:54)
[2022-05-11] MEDS: LANTUS PER UNIT CHARGE SQ SCH (17:40)
[2022-05-11] MEDS: METOPROLOL SUCC 25MG EXT REL TAB PO SCH (20:21)
[2022-05-12] MEDS: LEVOTHYROXINE SODIUM 125 MCG TABLET PO SCH (06:12)
[2022-05-12 07:55] LABS: Hematocrit (blood only) 27.2 % (34.1-44.9); Mean Corpuscular Hgb Conc 33.1 g/dL (32.0-36.0); Mean Corpuscular Volume 84.7 fL (80.0-100.0); Platelet Count 250 K/uL (130-400); RDW Coefficient of Variation 17.8 % (11.5-14.5); RDW Standard Deviation 54.5 fL (36.4-46.3); Red Blood Count 3.21 M/uL (3.93-5.22); White Blood Count 6.27 K/ul (4.8-10.8)
[2022-05-12 08:12] LABS: Albumin Globulin Ratio 0.7 (0.9-2); Albumin Level 2.1 gm/dl (3.4-5.0); Bilirubin,Total 0.5 mg/dl (0.2-1.0); Calcium 8.7 mg/dl (8.5-10.1); Est GFR (African American) 62.7 ml/min; Est GFR (Non-African American) 54.1 ml/min; Globulin 3.1 gm/dl (2.5-4.0); Potassium 3.9 mmol/L (3.5-5.1); Total Protein 5.2 gm/dl (6.0-8.3)
[2022-05-12 11:18] LABS: BUN Creatinine Ratio 24.5 (10-20)
[2022-05-12] MEDS: FUROSEMIDE INJ 20 MG/2 ML VIAL IV SCH (11:54)
[2022-05-12] MEDS: CHOLECALCIFEROL 5,000 UNITS 125 MCG TAB PO SCH (11:54)
[2022-05-12] MEDS: HEPARIN SOD 5,000 UNIT/0.5 ML VIAL SQ SCH ×2 (11:54→20:45)
[2022-05-12] MEDS: MAGNESIUM OXIDE 400 MG TAB PO SCH ×2 (11:54→20:45)
[2022-05-12] MEDS: PANTOprazole 40 MG TAB PO SCH (11:54)
[2022-05-12] MEDS: ADVANCED PROBIOTIC 1250 MG CAPSULE PO SCH (11:54)
[2022-05-12] MEDS: INSULIN ASPART PER UNIT SC SCH ×4 (12:02→20:45)
[2022-05-12] MEDS: cefTRIAXone SODIUM 2,000 MG in DEXTROSE 5% 50 ML IV SCH (13:11)
--- NOTE | 2022-05-12 17:56 | Hospitalist Progress Note ---
Date of Service May 12, 2022 Assessment & Plan (1) UTI (urinary tract infection): (2) SETH (acute kidney injury): (3) Uncontrolled type 1 diabetes mellitus: (4) Diastolic CHF: (5) CAD (coronary artery disease), [place] coronary artery: (6) Anemia: (7) Hypothyroidism: (8) Breast cancer: (9) Elevated LFTs: Plan Colleen Franco is an 81-year-old female with past medical history significant for recent GI bleed, DM 1, CAD, GERD, HFpEF, hypothyroidism, breast cancer, and anasarca who is admitted 2/2 a fall and found to have a UTI, SETH, and fluid overload a/w diastolic CHF. Diastolic CHF: - CXR: Cardiomegaly with pulmonary vascular congestion. Unchanged layering pleural effusions with bibasilar opacities. Large hiatal hernia. - Currently receiving Lasix 40 mg, 3x per week, received 40 mg IV dose 05/09 - Will continue Lasix d/t evidence of fluid overload on exam, suspect cardiac wheezing in addition to JVD and pitting LE edema - Follow I&O closely, especially output - Patient dyspneic w/ activity but no new O2 requirement, continue to follow --- Continue Lasix 20 mg IV daily, patient remains mildly fluid overloaded, follow I&Os UTI - Patient not complaining of any urinary symptoms but had a fall 05/07 (overnight), no recollection of event - Urinalysis positive, receiving Ceftriaxone q24h, culture showing gram negative bacilli - PT/OT following, possible requirement for rehabilitation pending clinical progression inpatient, significant change from baseline noted - Patient lives at home with son Patient experiencing urinary retention, recommending attempt at Purewick and bladder scanning, if retention continues okay to place Muñoz --- Afebrile, asymptomatic, leukocytosis resolved --- Culture positive for delvalle-sensitive Klebsiella, continue Ceftriaxone IV, goal of 5 days tx SETH (acute kidney injury): - Creatinine 1.23, just mildly elevated from baseline 0.91.1 - Likely secondary to UTI vs Urinary retention, consideration for a/w with volume overload as well (Lasix given 05/10) - Given 500 cc IVF in ED, discontinued, limit further IVF given volume overload seen on CXR and evidenced on examination - Avoid nephrotoxins, renally dose medications as able. - Follow Cr/GFR and volume status --- Resolved Type 1 DM - Fell last night, on floor all night, without insulin. Glucose on arrival 494, received 5 units IV insulin in ED, BSG recheck 460. - Glycemic consultation placed, pharmacy following - Advance diet today as tolerated - Patient has insulin pump for use outpatient that calculates her dosing, believes elevation was due to lack of insulin during fall and presentation to ED --- Continue to follow CAD (coronary artery disease) - Stable, continue medical management. Anemia: - Hgb 8.7 on presentation, stable since d/c, no longer on Xarelto (previous RLE DVT in 2019, cancer). - No s/s of acute bleed. - Monitor on CBC. --- Currently 9.0, possible a/w fluid overload, no active bleeding, following Hypothyroidism: - Continue levothyroxine. Breast cancer: - Last chemo in January, follows w/ CCP (Dr. Lane), plan is to restart treatment directly - Chemo was delayed d/t hemorrhoid surgery w/ subsequent hospitalization for GIB while on Xarelto Elevated AST - Patient at baseline Plan - Dispo: Med/Surg - DVT Ppx: SCDs, Heparin - Code Status: Full - IVF: None, diuresis - Diet: DM1 - CM: Anticipated discharge to [facility] Admission and Anticipated Discharge Date Admission Date: May 09, 2022 Supervising Physician Co-Signing Physician Notes Patient seen and examined, chart reviewed, case discussed with Dr. Ignacio Hager and Dr. Gaby Duran. I agree with the assessment and plan. Subjective 05/12: Colleen was resting comfortably in bed upon arrival this morning while having breakfast. She was pleasant and states that she feels well, even more improved from yesterday. She denies any chest pain, dyspnea, headache, abdominal pain or bowel/bladder discomfort. Left arm swelling has resolved and has no pain. Review of Systems Review of Systems: As per above. Physical Exam Physical Exam: General: Pleasant female, resting comfortably HEENT: NCAT, PERRL, no scleral icterus Resp: Faint crackles bilaterally, no upper airway sounds, no increased respiratory effort Cardiac: RRR, normal S1/S2, no MRG, no JVD (improved) Abdominal: Active bowel sounds, no TTP, no appreciable abdominal distension or fluid wave Extremities: 1+ b/l LE pitting edema Neuro: AAO x 4, no focal defects, speech clear Skin: Bruising to left side of face, erythema surrounding sacrum Results & Data Results & Data ([facility]) Vital Signs (Past 12 Hours) Vital Signs Temp Pulse Resp BP BP Pulse Ox O2 Del Method 05/12/22 15:36 36.8 C 85 17 154/81 H 92 Room Air 05/12/22 08:00 Room Air 05/12/22 11:58 36.5 C 85 19 151/84 H 92 Room Air 05/12/22 07:39 36.7 C 81 17 165/82 H 91 Room Air Resident Activity Tracking Resident Involvement: Resident Care Provided Care Provided: Adult Hospital Medicine
[2022-05-12] MEDS: LANTUS PER UNIT CHARGE SQ SCH (18:09)
[2022-05-12] MEDS: METOPROLOL SUCC 25MG EXT REL TAB PO SCH (20:45)
[2022-05-13] MEDS: LEVOTHYROXINE SODIUM 125 MCG TABLET PO SCH (05:33)
[2022-05-13] MEDS ORDERED: guaiFENesin 600 MG TABCR PO STA (05:49)
[2022-05-13] MEDS: HEPARIN 100 UNIT/ML 5ML FLUSH FLUSH PRN ×3 (07:08→12:01)
--- NOTE | 2022-05-13 07:53 | Hospitalist Progress Note ---
Date of Service May 13, 2022 Assessment & Plan (1) UTI (urinary tract infection): (2) SETH (acute kidney injury): (3) Uncontrolled type 1 diabetes mellitus: (4) Diastolic CHF: (5) CAD (coronary artery disease), [place] coronary artery: (6) Anemia: (7) Hypothyroidism: (8) Breast cancer: (9) Elevated LFTs: Plan Colleen Franco is an 81-year-old female with past medical history significant for recent GI bleed, DM 1, CAD, GERD, HFpEF, hypothyroidism, breast cancer, and anasarca who is admitted 2/2 a fall and found to have a UTI, SETH, and fluid overload a/w diastolic CHF. Diastolic CHF: - CXR: Cardiomegaly with pulmonary vascular congestion. Unchanged layering pleural effusions with bibasilar opacities. Large hiatal hernia. - Currently receiving Lasix 40 mg, 3x per week, received 40 mg IV dose 05/09 - Will continue Lasix d/t evidence of fluid overload on exam, suspect cardiac wheezing in addition to JVD and pitting LE edema - Follow I&O closely, especially output - Patient dyspneic w/ activity but no new O2 requirement, continue to follow --- Change to Lasix 40 mg PO daily, patient remains slightly fluid overloaded, follow I&Os UTI - Patient not complaining of any urinary symptoms but had a fall 05/07 (overnight), no recollection of event - Urinalysis positive, receiving Ceftriaxone q24h, culture showing gram negative bacilli - PT/OT following, possible requirement for rehabilitation pending clinical progression inpatient, significant change from baseline noted - Patient lives at home with son - 24 Patient experiencing urinary retention, recommending attempt at Purewick and bladder scanning, if retention continues okay to place Muñoz --- Afebrile, asymptomatic, leukocytosis resolved --- Culture positive for delvalle-sensitive Klebsiella, change Ceftriaxone IV to Keflex PO, goal of 5 days tx (1 additional day of Keflex) Hypertension - Patient consistently elevated during admission (160s/80s) - Slight decrease w/ lasix dosing - Patient adverse reactions to GUS/ARB - Currently receiving Metoprolol 25mg --- Add HCTZ 12.5 mg PO daily SETH (acute kidney injury): - Creatinine 1.23, just mildly elevated from baseline 0.91.1 - Likely secondary to UTI vs Urinary retention, consideration for a/w with volume overload as well (Lasix given 05/10) - Given 500 cc IVF in ED, discontinued, limit further IVF given volume overload seen on CXR and evidenced on examination - Avoid nephrotoxins, renally dose medications as able. - Follow Cr/GFR and volume status --- Resolved Type 1 DM - Fell last night, on floor all night, without insulin. Glucose on arrival 494, received 5 units IV insulin in ED, BSG recheck 460. - Glycemic consultation placed, pharmacy following - Advance diet today as tolerated - Patient has insulin pump for use outpatient that calculates her dosing, believes elevation was due to lack of insulin during fall and presentation to ED --- Continue to follow CAD (coronary artery disease) - Stable, continue medical management. Anemia: - Hgb 8.7 on presentation, stable since d/c, no longer on Xarelto (previous RLE DVT in 2019, cancer). - No s/s of acute bleed. - Monitor on CBC. --- Currently 9.0, possible a/w fluid overload, no active bleeding, following Hypothyroidism: - Continue levothyroxine. Breast cancer: - Last chemo in January, follows w/ CCP (Dr. Lane), plan is to restart treatment directly - Chemo was delayed d/t hemorrhoid surgery w/ subsequent hospitalization for GIB while on Xarelto Elevated AST - Patient at baseline - Dispo: Med/Surg - DVT Ppx: SCDs, Heparin - Code Status: Full - IVF: None, diuresis - Diet: DM1 - CM: Anticipated discharge to [facility] Admission and Anticipated Discharge Date Admission Date: May 09, 2022 Supervising Physician Co-Signing Physician Notes I have seen and examined patient. I agree with Assessment and plan as documented by Medical Student/Resident. Subjective 05/13: Colleen was resting comfortably in bed upon arrival this morning while having breakfast. She notes that she continues to experience improvement each day, and she beleives that her swelling in her legs is improving. She denies any chest pain, dyspnea, headache, abdominal pain or bowel/bladder discomfort. Left arm swelling has improved and has no pain. She notes discomfort in backs of bilateral calves when she is laying in bed, but it is not worsened by ankle ROM or walking. She denies fevers or chills. Review of Systems Review of Systems: As per above. Physical Exam Physical Exam: General: Pleasant female, resting comfortably HEENT: NCAT, PERRL, no scleral icterus Resp: Crackles/wheezing bilaterally, no upper airway sounds, no increased respiratory effort Cardiac: RRR, normal S1/S2, no MRG, no JVD (improved) Abdominal: Active bowel sounds, no TTP, no appreciable abdominal distension or fluid wave Extremities: trace+ b/l LE pitting edema, superficial calf TTP, no deep calf pain, Layla sign negative, no superficial skin change Neuro: AAO x 4, no focal defects, speech clear Skin: Bruising to left side of face, erythema surrounding sacrum Results & Data Results & Data ([facility]) Vital Signs (Past 12 Hours) Vital Signs Temp Pulse Resp BP Pulse Ox O2 Del Method 05/13/22 07:40 36.5 C 88 16 167/71 H 93 Room Air 05/12/22 20:20 Room Air 05/12/22 20:00 36.5 C 87 20 162/82 H 95 Room Air
[2022-05-13 08:00] LABS: Albumin Globulin Ratio 0.7 (0.9-2); Albumin Level 2.2 gm/dl (3.4-5.0); BUN Creatinine Ratio 25.8 (10-20); Bilirubin,Total 0.5 mg/dl (0.2-1.0); Calcium 8.7 mg/dl (8.5-10.1); Creatinine Clr Calc Pharmacy 47.5 ml/min; Est GFR (African American) 66.8 ml/min; Est GFR (Non-African American) 57.6 ml/min; Globulin 3.2 gm/dl (2.5-4.0); Potassium 3.9 mmol/L (3.5-5.1); Total Protein 5.4 gm/dl (6.0-8.3)
[2022-05-13] MEDS: PANTOprazole 40 MG TAB PO SCH (08:54)
[2022-05-13] MEDS: ADVANCED PROBIOTIC 1250 MG CAPSULE PO SCH (08:54)
[2022-05-13] MEDS: MAGNESIUM OXIDE 400 MG TAB PO SCH ×2 (08:54→20:09)
[2022-05-13] MEDS: cephALEXin 500 MG CAP PO SCH ×2 (08:54→20:09)
[2022-05-13] MEDS: CHOLECALCIFEROL 5,000 UNITS 125 MCG TAB PO SCH (08:54)
[2022-05-13] MEDS: HEPARIN SOD 5,000 UNIT/0.5 ML VIAL SQ SCH ×2 (08:58→20:08)
[2022-05-13] MEDS: INSULIN ASPART PER UNIT SC SCH ×4 (09:01→21:17)
[2022-05-13] MEDS: FUROSEMIDE INJ 20 MG/2 ML VIAL IV SCH (09:09)
[2022-05-13 09:27] LABS: Hematocrit (blood only) 27.9 % (37.0-47.0); Hemoglobin 9.2 g/dl (12.0-16.0); Mean Corpuscular Hemoglobin 27.9 pg (25.0-34.0); Mean Corpuscular Volume 84.5 fL (80.0-100.0); Mean Platelet Volume 9.8 fL (9.4-12.4); Platelet Count 272 K/uL (130-400); RDW Coefficient of Variation 17.7 % (11.5-14.5); RDW Standard Deviation 54.7 fL (36.4-46.3)
[2022-05-13] MEDS: hydroCHLOROthiazide 25 MG TAB PO SCH (13:26)
--- NOTE | 2022-05-13 13:51 | Pharmacy Report ---
Pharmacy Glycemic Short Note 2 - Date of Service May 13, 2022 - Glycemic Short BSG Results (Last 24 hours): 05/12/22 05/12/22 05/13/22 17:04 20:32 07:04 Glucose 70 POC Glucose 194 H 174 H 05/13/22 05/13/22 08:14 12:10 Glucose POC Glucose 71 231 H OUTPATIENT ANTIDIABETIC REGIMEN: * Insulin pump (Medtronic 530 G) * Basal rates: 7560-3955 - 0.45 units/hr, 5472-4974 - 0.55 units/hr, 0800- 0000 - 0.5 units/hr (12 units/day) * Bolus insulin to carb ratio (gm/unit) - 15 * Correction factor (unit/mg/dL) - 5 HbA1c: 8.7% (02/26/22) ASSESSMENT: 05/13: * HbA1c 7.1% on 05/11/22 * Over the past three days, the patient has been steadily maintained on a regimen of 5 units basal lantus at 1800 daily and 45-15 Novolog parameters. * BSG's on 05/12 were [phone] mg/dL. Today, the first two BSG's of the day were 81 mg/dL fasting and 231 at lunch. * Will refrain from making any immediate insulin changes today to collect additional data to promote safe glycemic management of this type 1 diabetic patient. * No new stressors observed on the patient's medication list which may influence glycemic requirements. 05/11: * BSGs 422-456-218-93-120mg/dL the last 24. Patient received 5 units of SQ basal yesterday after the drip was turned off, and 6 units of bolus. * Ordered a diet, however minimal carb intake. Started on IV Rocephin. Patient does have her home pump supplies, however does not appear to know how to operate it. Will continue SQ for today. * No change to basal or bolus insulin today. 05/10 * LR is an 81 year old female with T1DM who follows with [place] [facility] and is well known to pharmacy glycemic service * Presented to [facility] ED last evening for evaluation after a fall at home * Patient last admitted late last year, discharged to [facility] for short- term rehab on 03/22/22. Patient reports increased weakness since that time. * BSG of 494 mg/dL upon presentation, insulin infusion initiated at that time * BSGs trended down overnight, but unfortunately patient experienced symptomatic hypoglycemia multiple times this morning (shakiness) requiring D5W IV * Discontinued insulin infusion this morning and will utilize SC basal/bolus * Patient is now ordered diet, but insufficient carbs consumed at lunch to require insulin * Will be conservative with basal insulin today, but will order some in light of T1DM (5 units has worked at times historically) PLAN FOR INPATIENT GLYCEMIC CONTROL: * Basal insulin * Lantus 5 units SC daily with dinner * Reassess in AM * Bolus insulin * NovoLog per scale ACHS or Q6hrs while NPO * Goal Range: Low 120 mg/dL - High 150 mg/dL * Correction Factor: 45 mg/dL/unit * Nutritional / Prandial insulin per carb ratio of 1 unit per 15 grams CHO consumed * 00,04 checks with same parameters this evening in case ordered basal dose is insufficient
[2022-05-13] MEDS: LANTUS PER UNIT CHARGE SQ SCH (17:51)
[2022-05-13] MEDS: METOPROLOL SUCC 25MG EXT REL TAB PO SCH (20:10)
[2022-05-14] MEDS: LEVOTHYROXINE SODIUM 125 MCG TABLET PO SCH (05:44)
--- NOTE | 2022-05-14 07:33 | Hospitalist Progress Note ---
Date of Service May 14, 2022 Assessment & Plan (1) UTI (urinary tract infection): (2) SETH (acute kidney injury): (3) Uncontrolled type 1 diabetes mellitus: (4) Diastolic CHF: (5) CAD (coronary artery disease), [place] coronary artery: (6) Anemia: (7) Hypothyroidism: (8) Breast cancer: (9) Elevated LFTs: Plan Colleen Franco is an 81-year-old female with past medical history significant for recent GI bleed, DM 1, CAD, GERD, HFpEF, hypothyroidism, breast cancer, and anasarca who is admitted 2/2 a fall and found to have a UTI, SETH, and fluid overload a/w diastolic CHF. Diastolic CHF: - CXR: Cardiomegaly with pulmonary vascular congestion. Unchanged layering pleural effusions with bibasilar opacities. Large hiatal hernia. - Currently receiving Lasix 40 mg, 3x per week, received 40 mg IV dose 05/09 - Will continue Lasix d/t evidence of fluid overload on exam, suspect cardiac wheezing in addition to JVD and pitting LE edema - Follow I&O closely, especially output - Patient dyspneic w/ activity but no new O2 requirement, continue to follow --- Discontinue Lasix, Cr elevated to 1.25 H --- Patient has new O2 requirement and dyspnea, ordered CXR - evidence of worsening pleural effusions w/ small lung volumes UTI - Patient not complaining of any urinary symptoms but had a fall 05/07 (overnight), no recollection of event - Urinalysis positive, receiving Ceftriaxone q24h, culture showing gram negative bacilli - PT/OT following, possible requirement for rehabilitation pending clinical progression inpatient, significant change from baseline noted - Patient lives at home with son - Patient experiencing urinary retention, recommending attempt at Purewick and bladder scanning, if retention continues okay to place Muñoz --- Afebrile, asymptomatic, leukocytosis resolved --- Discontinue Abx, completed course Hypertension - Patient consistently elevated during admission (160s/80s) - Slight decrease w/ lasix dosing - Patient adverse reactions to GUS/ARB - Currently receiving Metoprolol 25mg - Continue HCTZ 12.5 mg PO daily SETH (acute kidney injury): - Creatinine 1.23, just mildly elevated from baseline 0.91.1 - Likely secondary to UTI vs Urinary retention, consideration for a/w with volume overload as well (Lasix given 05/10) - Given 500 cc IVF in ED, discontinued, limit further IVF given volume overload seen on CXR and evidenced on examination - Avoid nephrotoxins, renally dose medications as able. - Follow Cr/GFR and volume status --- Returned, Cr 1.25, discontinued Lasix Type 1 DM - Fell last night, on floor all night, without insulin. Glucose on arrival 494, received 5 units IV insulin in ED, BSG recheck 460. - Glycemic consultation placed, pharmacy following - Advance diet today as tolerated - Patient has insulin pump for use outpatient that calculates her dosing, believes elevation was due to lack of insulin during fall and presentation to ED --- Continue to follow CAD (coronary artery disease) - Stable, continue medical management. Anemia: - Hgb 8.7 on presentation, stable since d/c, no longer on Xarelto (previous RLE DVT in 2019, cancer). - No s/s of acute bleed. - Monitor on CBC. --- Currently 8.6, possible a/w fluid overload, no active bleeding, following Hypothyroidism: - Continue levothyroxine. Breast cancer: - Last chemo in January, follows w/ CCP (Dr. 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 (Bx confirmed, no prior thoracentesis) --- Will obtain non-contrast CT and Echo given patient's worsening CXR and known metastasis Elevated AST - Patient at baseline - Dispo: Med/Surg - DVT Ppx: SCDs, Heparin - Code Status: Full - IVF: None, diuresis - Diet: DM1 - CM: Med/Surg Admission and Anticipated Discharge Date Admission Date: May 09, 2022 Supervising Physician Co-Signing Physician Notes 81-year-old female with past medical histories pertinent for type 1 diabetes, HFpEF, CAD, hypothyroidism, GIB, and breast cancer presenting with fall and found to have +Klebsiella pneumonia UTI, acute exacerbation of diastolic CHF, and SETH on admission. CXR obtained today due to increasing oxygen demand overnight, patient was weaned down to 1 L at present. Chest x-ray showed low lung volumes with slight progression of mild pulmonary edema and small bilateral pleural effusions/densities, CAT scan ordered to evaluate further, patient endorses history of lung mets. Plan is discharge to [facility]. Patient examined with resident, agree to documentation of history, physical exam, and plan. Subjective 05/14: Colleen was resting comfortably in bed upon arrival this morning w/ nasal canula in place. She states that she is feeling well but her dyspnea worsened overnight. She denies chest pain or pleuritic pain. She is not experiencing any nausea, emesis, abdominal pain, or sensation of something stuck in her throat. She notes that her LE swelling is improving. She denies fevers or chills. Review of Systems Review of Systems: As per above. Physical Exam Physical Exam: General: Pleasant female, resting comfortably w/ NC HEENT: NCAT, PERRL, no scleral icterus Resp: Anterior wheezing bilaterally, diminished lung sounds in LLL, mild increased respiratory effort Cardiac: RRR, normal S1/S2, no MRG, no JVD (improved) Abdominal: Active bowel sounds, no TTP, no appreciable abdominal distension or fluid wave Extremities: trace+ b/l LE pitting edema, superficial calf TTP, no deep calf pain, Layla sign negative, no superficial skin change Neuro: AAO x 4, no focal defects, speech clear Results & Data Results & Data ([facility]) Vital Signs (Past 12 Hours) Vital Signs Temp Pulse Resp BP BP Pulse Ox O2 Del Method 05/14/22 07:18 36.6 C 81 16 127/71 96 Nasal Cannula 05/13/22 19:45 Nasal Cannula 05/13/22 23:04 37.3 C 98 H 16 138/74 96 Nasal Cannula 05/13/22 22:20 37.2 C 111 H 16 123/70 92 Nasal Cannula 05/13/22 21:25 91 Nasal Cannula 05/13/22 21:10 36.7 C 121 H 20 165/74 H 79 L Room Air 05/13/22 20:06 128 H 146/81 H O2 Flow Rate 05/14/22 07:18 5 05/13/22 19:45 5 05/13/22 23:04 5 05/13/22 22:20 5 05/13/22 21:25 2 05/13/22 21:10 05/13/22 20:06 Resident Activity Tracking Resident Involvement: Resident Care Provided Care Provided: Adult Hospital Medicine
[2022-05-14] MEDS: MAGNESIUM OXIDE 400 MG TAB PO SCH ×2 (08:08→20:36)
[2022-05-14] MEDS: PANTOprazole 40 MG TAB PO SCH (08:08)
[2022-05-14] MEDS: HEPARIN SOD 5,000 UNIT/0.5 ML VIAL SQ SCH ×2 (08:09→20:36)
[2022-05-14] MEDS: CHOLECALCIFEROL 5,000 UNITS 125 MCG TAB PO SCH (08:09)
[2022-05-14] MEDS: ADVANCED PROBIOTIC 1250 MG CAPSULE PO SCH (08:09)
[2022-05-14] MEDS: hydroCHLOROthiazide 25 MG TAB PO SCH (08:09)
[2022-05-14] MEDS: cephALEXin 500 MG CAP PO SCH (08:09)
[2022-05-14] MEDS: INSULIN ASPART PER UNIT SC SCH ×4 (08:52→21:15)
[2022-05-14] MEDS ORDERED: FUROSEMIDE 40 MG TAB PO SCH (09:00)
[2022-05-14 09:41] LABS: Hematocrit (blood only) 26.9 % (37.0-47.0); Hemoglobin 8.6 g/dl (12.0-16.0); Mean Corpuscular Hemoglobin 27.7 pg (25.0-34.0); Mean Corpuscular Volume 86.8 fL (80.0-100.0); Mean Platelet Volume 10.5 fL (9.4-12.4); Platelet Count 235 K/uL (130-400); RDW Standard Deviation 56.8 fL (36.4-46.3); White Blood Count 9.74 K/ul (4.8-10.8)
[2022-05-14 10:16] LABS: Albumin Level 2.2 gm/dl (3.4-5.0); Bilirubin,Total 0.6 mg/dl (0.2-1.0); Calcium 7.8 mg/dl (8.5-10.1); Potassium 4.2 mmol/L (3.5-5.1)
[2022-05-14 10:22] LABS: Albumin Globulin Ratio 0.7 (0.9-2); BUN Creatinine Ratio 26.4 (10-20); Creatinine Clr Calc Pharmacy 35.3 ml/min; Est GFR (African American) 46.7 ml/min; Est GFR (Non-African American) 40.3 ml/min; Globulin 3.2 gm/dl (2.5-4.0); Total Protein 5.4 gm/dl (6.0-8.3)
[2022-05-14] MEDS ORDERED: LANTUS PER UNIT CHARGE SQ SCH (12:00)
--- NOTE | 2022-05-14 13:44 | Fluoroscopy Report ---
FL video swallow CLINICAL HISTORY: assess for aspiration TECHNIQUE: Video fluoroscopy of the pharyngeal region was performed as barium mixtures of varying con sistencies were administered to the patient by the speech pathologist. A formal esophagram was not pe rformed. Comparison: None available at the time of this dictation. FINDINGS: Total fluoroscopy time: 2.7 minutes. The patient swallowed the different barium consistencies without difficulty. There was no laryngeal v estibular penetration or soila tracheal aspiration. Pooling of barium was noted in the bilateral piri form sinuses and valleculae. IMPRESSION: No evidence of aspiration. Please see the speech pathology report for further details. ACT 112: Negative or not required by law. Electronically signed by: Kt Interiano M.D. 05/14/2022 1:42 PM
--- NOTE | 2022-05-14 13:46 | Pharmacy Report ---
Pharmacy Glycemic Short Note 2 - Date of Service May 14, 2022 - Glycemic Short BSG Results (Last 24 hours): 05/13/22 05/13/22 05/14/22 17:12 21:03 08:15 Glucose POC Glucose 258 H 276 H 198 H 05/14/22 05/14/22 09:20 12:28 Glucose 207 H POC Glucose 155 H OUTPATIENT ANTIDIABETIC REGIMEN: * Insulin pump (Medtronic 530 G) * Basal rates: 3780-4224 - 0.45 units/hr, 7526-1527 - 0.55 units/hr, 0800- 0000 - 0.5 units/hr (12 units/day) * Bolus insulin to carb ratio (gm/unit) - 15 * Correction factor (unit/mg/dL) - 5 HbA1c: 8.7% (02/26/22) ASSESSMENT: 05/14/22 * Colleen received 8 units of insulin yesterday (5 units Lantus + 3 units Novolog) with poor glycemic control * BSGs: 71, 231, 258, 276 mg/dL * Of note, patient did refuse short acting insulin at lunch and dinner * Fasting BSG elevated today, 198 mg/dL. Post prandial BSGs elevated x 48 hours. * Will increase Lantus to 7 units daily. Patient has required 5-10 units per day during recent past admissions. * Tighten CF and CR. 05/13: * HbA1c 7.1% on 05/11/22 * Over the past three days, the patient has been steadily maintained on a regimen of 5 units basal lantus at 1800 daily and 45-15 Novolog parameters. * BSG's on 05/12 were 73-461-238-174 mg/dL. Today, the first two BSG's of the day were 81 mg/dL fasting and 231 at lunch. * Will refrain from making any immediate insulin changes today to collect additional data to promote safe glycemic management of this type 1 diabetic patient. * No new stressors observed on the patient's medication list which may influence glycemic requirements. 05/11: * BSGs 675-426-601-93-120mg/dL the last 24. Patient received 5 units of SQ basal yesterday after the drip was turned off, and 6 units of bolus. * Ordered a diet, however minimal carb intake. Started on IV Rocephin. Patient does have her home pump supplies, however does not appear to know how to operate it. Will continue SQ for today. * No change to basal or bolus insulin today. 05/10 * LR is an 81 year old female with T1DM who follows with [place] [facility] and is well known to pharmacy glycemic service * Presented to [facility] ED last evening for evaluation after a fall at home * Patient last admitted late last year, discharged to [facility] for short- term rehab on 03/22/22. Patient reports increased weakness since that time. * BSG of 494 mg/dL upon presentation, insulin infusion initiated at that time * BSGs trended down overnight, but unfortunately patient experienced symptomatic hypoglycemia multiple times this morning (shakiness) requiring D5W IV * Discontinued insulin infusion this morning and will utilize SC basal/bolus * Patient is now ordered diet, but insufficient carbs consumed at lunch to require insulin * Will be conservative with basal insulin today, but will order some in light of T1DM (5 units has worked at times historically) PLAN FOR INPATIENT GLYCEMIC CONTROL: * Basal insulin * Lantus 7 units SC daily with lunch * Reassess in AM * Bolus insulin * NovoLog per scale ACHS or Q6hrs while NPO * Goal Range: Low 120 mg/dL - High 150 mg/dL * Correction Factor: 40 mg/dL/unit * Nutritional / Prandial insulin per carb ratio of 1 unit per 12 grams CHO consumed
--- NOTE | 2022-05-14 14:21 | XRay Report ---
XR chest 2V PA/lateral HISTORY: new O2 requirement, dyspnea COMPARISON: Chest 05/09/2022. FINDINGS: No pneumothorax. There are low lung volumes. The heart remains mildly enlarged. Slight prog ression of the mild interstitial pulmonary edema and small bilateral pleural effusions/densities. A l arge hiatus hernia is again noted. Left subclavian Port-A-Cath terminates in the SVC. IMPRESSION: Low lung volumes with slight progression of the mild pulmonary edema and small bilateral pleural fusi ons/densities. ACT 112: Negative or not required by law. Electronically signed by: Chung Briscoe M.D. 05/14/2022 2:19 PM
--- NOTE | 2022-05-14 17:00 | CT Scan Report ---
CT OF THE CHEST WITHOUT IV CONTRAST CLINICAL HISTORY: Dyspnea, hx of metastatic breast cancer to lung. COMPARISON STUDY: Chest CT December 11, 2021. Chest radiograph performed earlier today. CT of the abdo men and pelvis March 18, 2022. CT DOSE: 189.58 mGy.cm TECHNIQUE: Axial images of the chest were obtained without IV contrast. Images were reviewed in the axial, sagittal, and coronal planes. IV contrast was not administered for this examination. Automat ed exposure control was utilized for the study. A dose lowering technique was utilized adhering to t he principles of ALARA. FINDINGS: Left subclavian Biagpr-z-[id number] is in place. Body wall edema is again noted. No enlarged axi llary, mediastinal or hilar lymph nodes are present. There is moderate cardiomegaly with extensive co ronary artery calcification. No pericardial effusion is present. Large hiatal hernia is noted. Exam i s compromised by streak artifact from residual contrast within the intrathoracic portion of the stoma ch. There is no pneumothorax. Moderate left and imtkh-[id number] right pleural effusions are similar to abdominal CT of March 18, 2022. These have increased in size since chest CT of December 11, 2021. Near complete left lower lobe collapse is noted. There is segmental atelectasis within the right low er lobe. There are secretions within the right mainstem bronchus. Scattered small pulmonary nodules r emain unchanged. These are similar to earlier CTs. A few groundglass opacities within the right upper lobe are noted. Multiple healing left-sided rib fractures are noted. T5, T6 and T7 compression defor mities are chronic. IMPRESSION: 1. Moderate left and [id number] right pleural effusions with extensive bilateral lower lobe at electasis, greater on the left. These effusions are similar to CT of March 18, 2022. 2. No change in multiple small pulmonary nodules. These remain unchanged since initial chest CT. 3. A few ground glass opacities within the right upper lobe. These may reflect a mild infectious proc ess or atelectasis. 4. No thoracic lymphadenopathy. 5. Large hiatal hernia which contains oral contrast from recent modified swallow. ACT 112: Negative or not required by law. Electronically signed by: Albin Smith M.D. 05/14/2022 4:57 PM
[2022-05-14] MEDS: METOPROLOL SUCC 25MG EXT REL TAB PO SCH (20:35)
[2022-05-14] MEDS: CARBOHYDRATES FOR HYPOGLYCEMIA PO PRN (20:43)
[2022-05-14] MEDS: DEXTROSE 50% 50 ML SYRINGE IV PRN (21:20)
[2022-05-14] MEDS: HEPARIN 100 UNIT/ML 5ML FLUSH FLUSH PRN (21:22)
[2022-05-15] MEDS: CARBOHYDRATES FOR HYPOGLYCEMIA PO PRN (02:16)
[2022-05-15] MEDS: DEXTROSE 50% 50 ML SYRINGE IV PRN (02:32)
[2022-05-15] MEDS: HEPARIN 100 UNIT/ML 5ML FLUSH FLUSH PRN (02:33)
[2022-05-15] MEDS: LEVOTHYROXINE SODIUM 125 MCG TABLET PO SCH (05:31)
[2022-05-15] MEDS: PANTOprazole 40 MG TAB PO SCH (07:33)
[2022-05-15] MEDS: ADVANCED PROBIOTIC 1250 MG CAPSULE PO SCH (07:47)
[2022-05-15] MEDS: CHOLECALCIFEROL 5,000 UNITS 125 MCG TAB PO SCH (07:47)
[2022-05-15] MEDS: hydroCHLOROthiazide 25 MG TAB PO SCH (07:47)
[2022-05-15] MEDS: MAGNESIUM OXIDE 400 MG TAB PO SCH ×2 (07:47→20:18)
[2022-05-15] MEDS: HEPARIN SOD 5,000 UNIT/0.5 ML VIAL SQ SCH ×2 (07:48→20:19)
--- NOTE | 2022-05-15 07:49 | Hospitalist Progress Note ---
Date of Service May 15, 2022 Assessment & Plan (1) UTI (urinary tract infection): (2) SETH (acute kidney injury): (3) Uncontrolled type 1 diabetes mellitus: (4) Diastolic CHF: (5) CAD (coronary artery disease), [place] coronary artery: (6) Anemia: (7) Hypothyroidism: (8) Breast cancer: (9) Elevated LFTs: Plan Colleen Franco is an 81-year-old female with past medical history significant for recent GI bleed, DM 1, CAD, GERD, HFpEF, hypothyroidism, breast cancer, and anasarca who is admitted 2/2 a fall and found to have a UTI, SETH, and fluid overload a/w diastolic CHF. Diastolic CHF: - CXR: Cardiomegaly with pulmonary vascular congestion. Unchanged layering pleural effusions with bibasilar opacities. Large hiatal hernia. - Currently receiving Lasix 40 mg, 3x per week, received 40 mg IV dose 05/09 - Will continue Lasix d/t evidence of fluid overload on exam, suspect cardiac wheezing in addition to JVD and pitting LE edema - Follow I&O closely, especially output - Patient dyspneic w/ activity but no new O2 requirement, continue to follow --- Discontinue Lasix, Cr elevated to 1.22 H (downtrending) --- Patient has new O2 requirement - patient has atelectasis and slightly worsened pleural effusions but is asymptomatic and comfortable UTI - Patient not complaining of any urinary symptoms but had a fall 05/07 (overnight), no recollection of event - Urinalysis positive, receiving Ceftriaxone q24h, culture showing gram negative bacilli - PT/OT following, possible requirement for rehabilitation pending clinical progression inpatient, significant change from baseline noted - Patient lives at home with son - Patient experiencing urinary retention, recommending attempt at Purewick and bladder scanning, if retention continues okay to place [place] --- Afebrile, asymptomatic, leukocytosis resolved --- Discontinue Abx, completed course Hypertension - Patient consistently elevated during admission (160s/80s) - Slight decrease w/ lasix dosing - Patient adverse reactions to GUS/ARB - Currently receiving Metoprolol 25mg - Continue HCTZ 12.5 mg PO daily SETH (acute kidney injury): - Creatinine 1.23, just mildly elevated from baseline 0.91.1 - Likely secondary to UTI vs Urinary retention, consideration for a/w with volume overload as well (Lasix given 05/10) - Given 500 cc IVF in ED, discontinued, limit further IVF given volume overload seen on CXR and evidenced on examination - Avoid nephrotoxins, renally dose medications as able. - Follow Cr/GFR and volume status --- Cr 1.22, downtrending, discontinued Lasix inpatient --- Continue home dosing 3x weekly Type 1 DM - Fell last night, on floor all night, without insulin. Glucose on arrival 494, received 5 units IV insulin in ED, BSG recheck 460. - Glycemic consultation placed, pharmacy following - Advance diet today as tolerated - Patient has insulin pump for use outpatient that calculates her dosing, believes elevation was due to lack of insulin during fall and presentation to ED --- Continue to follow CAD (coronary artery disease) - Stable, continue medical management. Anemia: - Hgb 8.7 on presentation, stable since d/c, no longer on Xarelto (previous RLE DVT in 2019, cancer). - No s/s of acute bleed. - Monitor on CBC. --- Currently 8.5, possible a/w fluid overload, no active bleeding, following Hypothyroidism: - Continue levothyroxine. Breast cancer: - Last chemo in January, follows w/ CCP (Dr. 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 (Bx confirmed, no prior thoracentesis) --- CT Chest - patient has atelectasis and slightly worsened pleural effusions, metestatic lesions stable Elevated AST - Patient at baseline - Dispo: Med/Surg - DVT Ppx: SCDs, Heparin - Code Status: Full - IVF: None, diuresis - Diet: DM1 - CM: DC to [facility] 11 AM Admission and Anticipated Discharge Date Admission Date: May 09, 2022 Supervising Physician Co-Signing Physician Notes 81-year-old female with past medical histories pertinent for type 1 diabetes, HFpEF, CAD, hypothyroidism, GIB, and breast cancer presenting with fall and found to have +Klebsiella pneumonia UTI, acute exacerbation of diastolic CHF, and SETH on admission. Patient stable but continues to have oxygen need of 1L throughout day. This is likely due to progression of pleural effusions, yet she states her chronic SOB on exertion is unchanged. Patient plans on meeting with oncologist following discharge for plan of further chemotherapy. Plan [facility]. Will have family meeting to discuss goals of care with patient and son tomorrow. Patient examined independently, agree to documentation of history, physical exam, and plan. Subjective 05/15: Colleen remains comfortable in bed w/o symptoms or concerns. Nasal canula still in place. She notes she is feeling well overall and feels her swelling is diminishing. She is not experiencing any chest pain, dyspnea, pleuritic pain, nausea, emesis, or abdominal pain. Her dysphagia has resolved. Spoke with patient's son Steven this morning, discussed results, diagnosis, treatment and plan, he expressed support and understanding. Review of Systems Review of Systems: As per above. Physical Exam Physical Exam: General: Pleasant female, resting comfortably w/ NC HEENT: NCAT, PERRL, no scleral icterus Resp: Anterior wheezing bilaterally, diminished lung sounds in LLL, no increased respiratory effort Cardiac: RRR, normal S1/S2, no MRG, no JVD (improved) Abdominal: Active bowel sounds, no TTP, mild appreciable abdominal distension firm to palpation Extremities: trace+ b/l LE pitting edema, superficial calf TTP, no deep calf pain, Layla sign negative, no superficial skin change Neuro: AAO x 4, no focal defects, speech clear Results & Data Results & Data ([facility]) Vital Signs (Past 12 Hours) Vital Signs Temp Pulse Resp BP Pulse Ox O2 Del Method O2 Flow Rate 05/15/22 07:22 36.3 C L 65 14 155/81 H 95 Nasal Cannula 5 05/14/22 23:51 36.3 C L 75 14 109/65 96 Nasal Cannula 5 05/14/22 19:50 Nasal Cannula 5 05/14/22 20:31 36.4 C L 86 14 125/56 L 92 Nasal Cannula 4 Resident Activity Tracking Resident Involvement: Resident Care Provided Care Provided: [facility] Medicine
[2022-05-15 08:21] LABS: Hemoglobin 8.5 g/dl (12.0-16.0); Mean Corpuscular Hemoglobin 27.5 pg (25.0-34.0); Mean Corpuscular Hgb Conc 31.5 g/dL (32.0-36.0); Mean Corpuscular Volume 87.4 fL (80.0-100.0); Mean Platelet Volume 10.3 fL (9.4-12.4); Platelet Count 206 K/uL (130-400); RDW Coefficient of Variation 17.7 % (11.5-14.5); RDW Standard Deviation 56.9 fL (36.4-46.3); Red Blood Count 3.09 M/uL (4.20-5.40); White Blood Count 6.51 K/ul (4.8-10.8)
[2022-05-15] MEDS: INSULIN ASPART PER UNIT SC SCH ×4 (08:27→21:27)
[2022-05-15 08:47] LABS: Bilirubin,Total 0.4 mg/dl (0.2-1.0); Potassium 3.9 mmol/L (3.5-5.1)
[2022-05-15 08:53] LABS: BUN Creatinine Ratio 24.8 (10-20); Creatinine Clr Calc Pharmacy 36.5 ml/min; Est GFR (African American) 48.6 ml/min; Est GFR (Non-African American) 41.9 ml/min; Total Protein 5.4 gm/dl (6.0-8.3)
--- NOTE | 2022-05-15 09:20 | XCELERA ---
[id number]
[2022-05-15 11:43] LABS: Albumin Globulin Ratio 0.7 (0.9-2); Albumin Level 2.2 gm/dl (3.4-5.0); Globulin 3.2 gm/dl (2.5-4.0)
--- NOTE | 2022-05-15 13:50 | Pharmacy Report ---
Pharmacy Glycemic Short Note 2 - Date of Service May 15, 2022 - Glycemic Short BSG Results (Last 24 hours): 05/14/22 05/14/22 05/14/22 17:02 20:42 20:43 Glucose POC Glucose 100 H 40 L* 43 L* 05/14/22 05/14/22 05/15/22 21:12 21:40 02:07 Glucose POC Glucose 38 L* 114 H 52 L* 05/15/22 05/15/22 05/15/22 02:28 02:50 06:04 Glucose POC Glucose 58 L* 89 95 05/15/22 05/15/22 05/15/22 06:04 07:38 08:21 Glucose 105 H POC Glucose 95 107 H 05/15/22 12:13 Glucose POC Glucose 184 H OUTPATIENT ANTIDIABETIC REGIMEN: * Insulin pump ([employer] 530 G) * Basal rates: 9811-7253 - 0.45 units/hr, 2285-0665 - 0.55 units/hr, 0800- 0000 - 0.5 units/hr (12 units/day) * Bolus insulin to carb ratio (gm/unit) - 15 * Correction factor (unit/mg/dL) - 5 HbA1c: 8.7% (02/26/22) ASSESSMENT: 05/15/22 * BSGs yesterday were [phone] mg/dL. Overnight patient was again hypoglycemia * Will decrease Lantus from 7 units to 5 units .... this is most likely the cause for prolonged hypoglycemia. * Will tighten Novolog at dinner once lower Lantus dose given. 05/14/22 * Colleen received 8 units of insulin yesterday (5 units Lantus + 3 units Novolog) with poor glycemic control * BSGs: 71, 231, 258, 276 mg/dL * Of note, patient did refuse short acting insulin at lunch and dinner * Fasting BSG elevated today, 198 mg/dL. Post prandial BSGs elevated x 48 hours. * Will increase Lantus to 7 units daily. Patient has required 5-10 units per day during recent past admissions. * Tighten CF and CR. 05/13: * HbA1c 7.1% on 05/11/22 * Over the past three days, the patient has been steadily maintained on a regimen of 5 units basal lantus at 1800 daily and 45-15 Novolog parameters. * BSG's on 05/12 were [phone] mg/dL. Today, the first two BSG's of the day were 81 mg/dL fasting and 231 at lunch. * Will refrain from making any immediate insulin changes today to collect additional data to promote safe glycemic management of this type 1 diabetic patient. * No new stressors observed on the patient's medication list which may influence glycemic requirements. 05/11: * BSGs [phone]/dL the last 24. Patient received 5 units of SQ basal yesterday after the drip was turned off, and 6 units of bolus. * Ordered a diet, however minimal carb intake. Started on IV Rocephin. Patient does have her home pump supplies, however does not appear to know how to operate it. Will continue SQ for today. * No change to basal or bolus insulin today. 05/10 * LR is an 81 year old female with T1DM who follows with [place] [facility] and is well known to pharmacy glycemic service * Presented to [facility] ED last evening for evaluation after a fall at home * Patient last admitted late last year, discharged to [facility] for short- term rehab on 03/22/22. Patient reports increased weakness since that time. * BSG of 494 mg/dL upon presentation, insulin infusion initiated at that time * BSGs trended down overnight, but unfortunately patient experienced symptomatic hypoglycemia multiple times this morning (shakiness) requiring D5W IV * Discontinued insulin infusion this morning and will utilize SC basal/bolus * Patient is now ordered diet, but insufficient carbs consumed at lunch to require insulin * Will be conservative with basal insulin today, but will order some in light of T1DM (5 units has worked at times historically) PLAN FOR INPATIENT GLYCEMIC CONTROL: * Basal insulin * Lantus 5 units SC daily with dinner * Reassess in AM * Bolus insulin * NovoLog per scale ACHS or Q6hrs while NPO * Goal Range: Low 120 mg/dL - High 150 mg/dL * Correction Factor: 35 mg/dL/unit * Nutritional / Prandial insulin per carb ratio of 1 unit per 10 grams CHO consumed
[2022-05-15] MEDS ORDERED: LANTUS PER UNIT CHARGE SQ SCH (16:00)
[2022-05-15] MEDS: METOPROLOL SUCC 25MG EXT REL TAB PO SCH (20:18)
[2022-05-16] MEDS: LEVOTHYROXINE SODIUM 125 MCG TABLET PO SCH (05:38)
[2022-05-16 07:37] LABS: Hematocrit (blood only) 27.1 % (37.0-47.0); Hemoglobin 8.9 g/dl (12.0-16.0); Mean Corpuscular Hgb Conc 32.8 g/dL (32.0-36.0); Mean Corpuscular Volume 85.2 fL (80.0-100.0); Mean Platelet Volume 9.5 fL (9.4-12.4); Platelet Count 200 K/uL (130-400); RDW Coefficient of Variation 17.5 % (11.5-14.5); RDW Standard Deviation 55.3 fL (36.4-46.3); Red Blood Count 3.18 M/uL (4.20-5.40); White Blood Count 6.72 K/ul (4.8-10.8)
[2022-05-16] MEDS: MAGNESIUM OXIDE 400 MG TAB PO SCH (07:41)
[2022-05-16] MEDS: ADVANCED PROBIOTIC 1250 MG CAPSULE PO SCH (07:41)
[2022-05-16] MEDS: HEPARIN SOD 5,000 UNIT/0.5 ML VIAL SQ SCH (07:41)
[2022-05-16] MEDS: hydroCHLOROthiazide 25 MG TAB PO SCH (07:41)
[2022-05-16] MEDS: PANTOprazole 40 MG TAB PO SCH (07:42)
[2022-05-16] MEDS: CHOLECALCIFEROL 5,000 UNITS 125 MCG TAB PO SCH (07:42)
[2022-05-16 08:11] LABS: Bilirubin,Total 0.4 mg/dl (0.2-1.0); Calcium 7.9 mg/dl (8.5-10.1); Potassium 3.8 mmol/L (3.5-5.1)
[2022-05-16 08:17] LABS: Albumin Globulin Ratio 0.7 (0.9-2); BUN Creatinine Ratio 26.2 (10-20); Creatinine Clr Calc Pharmacy 42.9 ml/min; Est GFR (Non-African American) 50.9 ml/min
[2022-05-16] MEDS: INSULIN ASPART PER UNIT SC SCH (08:46)
--- NOTE | 2022-05-16 10:07 | Discharge Summary ---
Date of Service May 16, 2022 Admission HPI Per Admitting Provider Colleen Franco is an 81-year-old female with past medical history significant for recent GI bleed, DM 1, CAD, GERD, HFpEF, hypothyroidism, breast cancer, who presents today for evaluation after falling at home last evening. She lives with her son, who found her on the ground laying on her left side this morning. She recalls falling asleep in her lift chair and does not recall falling, thinks she fell in her sleep. She is not complaining of any pain currently but has had nonbloody diarrhea and low abdominal pain for three days. She also notes she has been weak since discharge on 03/22 after prolonged hospital stay for acute GI bleed. She does not report any further bleeding, Xarelto has since been stopped. She did got to [facility] for 3 weeks of rehab after discharge and initially felt good but has since become weak again. On presentation she was initially hypertensive 186/100, tachycardic 100-110, otherwise afebrile and not hypoxic. Labs notable for BSG 494 and lactate 3.2, AG 12. Hgb 8.7, at baseline. K 5.2, no other electrolyte abnormalities. BUN 28, Cr 1.21, baseline ~ 0.9-1.10. AST 53, ALT 35, alk phos 229, all at baseline. CK 212. CXR with cardiomegaly, pulmonary vascular congestion, unchanged layering pleural effusions bibasilar opacities and a large hiatal hernia. Head CT and C-spine CT unremarkable. ED Course: 5 units IV insulin, NS 75cc/hr x 500 cc, Rocephin 2gm. Admission Exam Per Admitting Provider General: awake, alert, no apparent distress Head: Normocephalic, atraumatic ENT: PERRL, EOMI, no pharyngeal exudate, mucous membranes moist Chest: crackles at b/l lung bases; otherwise clear to auscultation, on room air, no adventitious breath sounds Cardiac: Regular rate and rhythm, no murmur, no JVD, normal peripheral pulses, good capillary refill Abdominal: NABS x 4 quadrants, soft, nontender to palpation, no rebound, guarding or tenderness Extremities: mild b/l LE edema; otherwise normal inspection, no erythema, calfs nontender to palpation Psych: Normal mood and affect Neuro: AAO x 3, strength intact bilaterally and rated 5/5, no motor deficits, speech is clear, no peripheral sensory deficits Skin: no rash or erythema Principal Diagnosis UTI Weakness Hypervolemia Discharge Exam General: Pleasant female, resting comfortably w/ NC HEENT: NCAT, PERRL, no scleral icterus Resp: Anterior wheezing bilaterally, diminished lung sounds in LLL, no increased respiratory effort Cardiac: RRR, normal S1/S2, no MRG, no JVD (improved) Abdominal: Active bowel sounds, no TTP, mild appreciable abdominal distension firm to palpation Extremities: trace+ b/l LE pitting edema, superficial calf TTP, no deep calf pain, Layla sign negative, no superficial skin change Neuro: AAO x 4, no focal defects, speech clear Discharge Data Allergies Allergy/AdvReac Type Severity Reaction Status Date / Time lisinopril AdvReac Intermediate Elevates Verified 04/26/22 10:40 potassium losartan AdvReac Intermediate Elevates Verified 04/26/22 10:40 potassium Ordered Studies 05/09/22 10:35 CT cervical spine wo con Stat CT head/brain wo con Stat 05/14/22 13:00 FL video swallow Routine 05/14/22 15:42 CT chest without contrast [CT chest diagnostic wo con] Routine Hospital Course (1) UTI (urinary tract infection): (2) SETH (acute kidney injury): (3) Uncontrolled type 1 diabetes mellitus: (4) Diastolic CHF: (5) CAD (coronary artery disease), [place] coronary artery: (6) Anemia: (7) Hypothyroidism: (8) Breast cancer: (9) Elevated LFTs: Lester Franco is an 81-year-old female with past medical history significant for recent GI bleed, DM 1, CAD, GERD, HFpEF, hypothyroidism, breast cancer, and anasarca who is admitted 2/2 a fall and found to have a UTI, SETH, and fluid overload a/w diastolic CHF. Diastolic CHF: - CXR: Cardiomegaly with pulmonary vascular congestion. Unchanged layering pleural effusions with bibasilar opacities. Large hiatal hernia. - Currently receiving Lasix 40 mg, 3x per week, received 40 mg IV dose 05/09 - Will continue Lasix d/t evidence of fluid overload on exam, suspect cardiac wheezing in addition to JVD and pitting LE edema - Follow I&O closely, especially output - Patient dyspneic w/ activity but no new O2 requirement, continue to follow --- Discontinue IV Lasix, Cr elevated to 1.22 H (downtrending) --- Patient has new O2 requirement - patient has atelectasis and slightly worsened pleural effusions but is asymptomatic and comfortable UTI - Patient not complaining of any urinary symptoms but had a fall 05/07 (overnight), no recollection of event - Urinalysis positive, receiving Ceftriaxone q24h, culture showing gram negative bacilli - PT/OT following, possible requirement for rehabilitation pending clinical progression inpatient, significant change from baseline noted - Patient lives at home with son - Patient experiencing urinary retention, recommending attempt at Purewick and bladder scanning, if retention continues okay to place Mu[place]oz --- Afebrile, asymptomatic, leukocytosis resolved --- Completed antibiotic course Hypertension - Patient consistently elevated during admission (160s/80s) - Patient adverse reactions to GUS/ARB - Currently receiving Metoprolol 25mg --- New medication, continue HCTZ 12.5 mg PO daily SETH (acute kidney injury): - Creatinine 1.23, just mildly elevated from baseline 0.91.1 - Likely secondary to UTI vs Urinary retention, consideration for a/w with volume overload as well (Lasix given 05/10) - Given 500 cc IVF in ED, discontinued, limit further IVF given volume overload seen on CXR and evidenced on examination - Avoid nephrotoxins, renally dose medications as able. - Follow Cr/GFR and volume status --- Cr 1.03, downtrending, discontinued IV Lasix --- Continue home dosing 3x weekly for PO Lasix Type 1 DM - Fell last night, on floor all night, without insulin. Glucose on arrival 494, received 5 units IV insulin in ED, BSG recheck 460. - Glycemic consultation placed, pharmacy following - Advance diet today as tolerated - Patient has insulin pump for use outpatient that calculates her dosing, believes elevation was due to lack of insulin during fall and presentation to ED --- Glycemic consult inpatient, return to home regimen, patient elevated on presentation d/t period w/o meds during fall CAD (coronary artery disease) - Stable, continue medical management. Anemia: - Hgb 8.7 on presentation, stable since d/c, no longer on Xarelto (previous RLE DVT in 2019, cancer). - No s/s of acute bleed. - Monitor on CBC. --- Currently 8.9, possible a/w fluid overload, no active bleeding Hypothyroidism: - Continue levothyroxine. Breast cancer: - Last chemo in January, follows w/ CCP (Dr. 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 (Bx confirm ed, no prior thoracentesis) --- CT Chest - patient has atelectasis and slightly worsened pleural effusions, metastatic lesions stable --- Continue supplemental oxygen at 1-2 liters PRN Elevated AST - Patient at baseline GERD - Adjusted to Pantoprazole 40 mg PO daily - Continue aspiration precautions - Large Hiatal hernia present - Speech evaluation inpatient - Moist foods, elevated HOB to 30 at all times, small frequent meals, upright following meals for 30 minutes - Dispo:Med/Surg -O2: Supplement 1-2 L PRN -DVT Ppx: SCDs, Heparin -Code Status: Full - Diet:DM1, moist foods, elevated HOB to 30 at all times, small frequent meals, upright following meals for 30 minutes -CM: DC to [facility] 11 AM Total Time Total Time Spent Total Time Spent (In Minutes): 30 min at bedside and coordinating care, 15 min for chart review and documentation Discharge Plan Discharge Items Patient Disposition: Transfer Alf Fac Reason For Visit: UTI/WEAKNESS, HYPERGLYCEMIA Discharge Diagnosis: Urinary Tract Infection Deconditioning/Weakness Hypervolemia Activity: Per Instructions section Non-emergency contact: Primary Care Provider Call non-emergency contact if: you have any medication questions and your symptoms worsen Follow-up/Referrals: Liz Pedraza MD [Primary Care Provider] - Diet: Regular Diet Texture: Easy to Chew Addtl Attending Provider Instructions: Colleen Franco is an 81-year-old female with past medical history significant for recent GI bleed, DM 1, CAD, GERD, HFpEF, hypothyroidism, breast cancer, and anasarca who is admitted 2/2 a fall and found to have a UTI, SETH, and fluid overload a/w diastolic CHF. Diastolic CHF: - CXR: Cardiomegaly with pulmonary vascular congestion. Unchanged layering pleural effusions with bibasilar opacities. Large hiatal hernia. - Currently receiving Lasix 40 mg, 3x per week, received 40 mg IV dose 05/09 - Will continue Lasix d/t evidence of fluid overload on exam, suspect cardiac wheezing in addition to JVD and pitting LE edema - Follow I&O closely, especially output - Patient dyspneic w/ activity but no new O2 requirement, continue to follow --- Discontinue IV Lasix, Cr elevated to 1.22 H (downtrending) --- Patient has new O2 requirement - patient has atelectasis and slightly worsened pleural effusions but is asymptomatic and comfortable UTI - Patient not complaining of any urinary symptoms but had a fall 05/07 (overnight), no recollection of event - Urinalysis positive, receiving Ceftriaxone q24h, culture showing gram negative bacilli - PT/OT following, possible requirement for rehabilitation pending clinical progression inpatient, significant change from baseline noted - Patient lives at home with son - Patient experiencing urinary retention, recommending attempt at Purewick and bladder scanning, if retention continues okay to place Mu[place]oz --- Afebrile, asymptomatic, leukocytosis resolved --- Completed antibiotic course Hypertension - Patient consistently elevated during admission (160s/80s) - Patient adverse reactions to GUS/ARB - Currently receiving Metoprolol 25mg --- New medication, continue HCTZ 12.5 mg PO daily SETH (acute kidney injury): - Creatinine 1.23, just mildly elevated from baseline 0.91.1 - Likely secondary to UTI vs Urinary retention, consideration for a/w with volu me overload as well (Lasix given 05/10) - Given 500 cc IVF in ED, discontinued, limit further IVF given volume overload seen on CXR and evidenced on examination - Avoid nephrotoxins, renally dose medications as able. - Follow Cr/GFR and volume status --- Cr 1.03, downtrending, discontinued IV Lasix --- Continue home dosing 3x weekly for PO Lasix Type 1 DM - Fell last night, on floor all night, without insulin. Glucose on arrival 494, received 5 units IV insulin in ED, BSG recheck 460. - Glycemic consultation placed, pharmacy following - Advance diet today as tolerated - Patient has insulin pump for use outpatient that calculates her dosing, believes elevation was due to lack of insulin during fall and presentation to ED --- Glycemic consult inpatient, return to home regimen, patient elevated on presentation d/t period w/o meds during fall CAD (coronary artery disease) - Stable, continue medical management. Anemia: - Hgb 8.7 on presentation, stable since d/c, no longer on Xarelto (previous RLE DVT in 2019, cancer). - No s/s of acute bleed. - Monitor on CBC. --- Currently 8.9, possible a/w fluid overload, no active bleeding Hypothyroidism: - Continue levothyroxine. Breast cancer: - Last chemo in January, follows w/ CCP (Dr. 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 (Bx confirmed, no prior thoracentesis) --- CT Chest - patient has atelectasis and slightly worsened pleural effusions, metastatic lesions stable --- Continue supplemental oxygen at 1-2 liters PRN --- May benefit from thoracentesis for pleural effusions in future, currently asymptomatic and stable Elevated AST - Patient at baseline GERD - Adjusted to Pantoprazole 40 mg PO daily - Continue aspiration precautions - Large Hiatal hernia present - Speech evaluation inpatient - Moist foods, elevated HOB to 30 at all times, small frequent meals, upright following meals for 30 minutes - Dispo:Med/Surg - O2: Supplement 1-2 L PRN -DVT Ppx: SCDs, Heparin -Code Status: Full - Diet:DM1, moist foods, elevated HOB to 30 at all times, small frequent meals, upright following meals for 30 minutes -CM: [facility] Pending Studies at Discharge: No Stand-Alone Forms: My [facility] Skilled Items Patient informed of condition?: Yes DNR: No Discharge Level of Care: Acute rehab Communicable Disease: No Discharge Prognosis: Stable Lines: None Urinary Catheter: No Medications and DC Order Prescriptions: New pantoprazole 40 mg Tablet,Delayed Release (Dr/Ec) 40 mg PO QAM 30 Days Qty: 30 0RF hydrochlorothiazide 25 mg Tablet 12.5 mg PO QAM 30 Days Qty: 60 0RF Continued levothyroxine 125 mcg tablet 125 mcg PO DAILY Qty: 90 0RF (DME) Contour Next Test Strips Strip See Rx Instructions .ROUTE .MEDSUPPLY Qty: 400 3RF Rx Instructions: test 5 times daily if needed for calibration (DME) insulin syringe-needle U-100 [BD Insulin Syringe] 0.3 mL 29 gauge x 1/2" syringe See Rx Instructions miscellaneous .MEDSUPPLY Qty: 100 5RF Rx Instructions: To be used with pump failure cholecalciferol (vitamin D3) 125 mcg (5,000 unit) capsule 5,000 unit PO QAM (DME) [place] [facility] [place] Instructions .Route Qty: 1 0RF Rx Instructions: ROLLATOR WITH SEAT AND BRAKES L. acidophilus/Bifid. animalis 31 billion cell capsule 1 cap PO BID (DME) Dexcom G6 Sensor Device See Rx Instructions .ROUTE .MEDSUPPLY Qty: 3 Rx Instructions: As directed (DME) Dexcom G6 Transmitter Device See Rx Instructions .ROUTE .MEDSUPPLY Qty: 1 Rx Instructions: As directed (DME) MiniMed 530G Insulin Pump Misc See Rx Instructions .ROUTE .MEDSUPPLY Qty: 1 Rx Instructions: As directed, at home acetaminophen [Tylenol] 325 mg Capsule 650 mg PO QID PRN (Reason: Pain) furosemide [Lasix] 20 mg tablet 40 mg PO 3XWK Rx Instructions: 40 mg MO Tue; insulin glargine [Lantus U-100 Insulin] 100 unit/mL solution 7 unit subcut DAILY PRN (Reason: ONLY IF INSULIN PUMP FAILS) Label Comments: ONLY USES IF INSULIN PUMP FAILS insulin aspart U-100 [Novolog U-100 Insulin aspart] 100 unit/mL solution 0 unit continuous subcutaneous infusion CONTINOUS metoprolol succinate 25 mg tablet extended release 24 hr 25 mg PO QPM magnesium oxide 400 mg magnesium Tablet 400 mg PO BID Discontinued omeprazole 20 mg tablet,delayed release (DR/EC) 20 mg PO QAM Label Comments: QAM Discharge Orders: Discharge Order (Routine); Ordered 05/16/22 Ordered By: Gaby Flores/Other Patient Handouts: Managing Type 1 Diabetes Admission Data Admit Date/Time: 05/09/22 14:18 Attending Provider: Eula Majano Admit Provider: Shyanne Felton Primary Care Provider: Liz Pedraza Other Providers: [facility] ; Fco Martino at [place] ; [facility] Other Interventions: Discharge Summary Assessment (RN) Last Done: 05/16/22 09:20 Supervising Physician Co-Signing Physician Notes 81-year-old female with past medical histories pertinent for type 1 diabetes, HFpEF, CAD, hypothyroidism, GIB, and breast cancer presenting with fall and found to have +Klebsiella pneumonia UTI, acute exacerbation of diastolic CHF, and SETH on admission. Patient stable for discharge to [facility] today. She has remained on 1 L nasal cannula, discussed progression of pleural effusions likely contributing although patient denies worsening shortness of breath. We discussed at length her goals of care, she plans to follow-up with oncology for possible chemotherapy, the patient endorses she plans on focusing on quality of life. Throughout the hospitalization, patient is down 6.1 kg from admitting weight, she continues to suffer with lymphedema of her left arm and diffuse anasarca. Patient examined independently, agree to documentation of history, physical exam, and plan.
== END 2022-05-16 12:15 | DRG 683 ==
LOC: ED 09:28 → SUATTDRO 14:18 → 4W 14:18 → 3E 05-12 20:23